=== PATIENT | male | born 1970 | race Caucasian/White ===

== ENCOUNTER 2017-04-18 19:03 | Emergency (ER) | payer OTHER ==
[~2017-04-18] VITALS: Ht 190.5 cm; Wt 120.5 kg
[2017-04-18] MEDS ORDERED: ALBU83IN INH (19:25)
[2017-04-18] MEDS ORDERED: ASPIRIN 325 MG TAB PO ONE (19:45)
[2017-04-18] MEDS ORDERED: KETOROLAC 30 MG/ML VIAL (J1885) IV ONE (19:45)
[2017-04-18 19:56] LABS: BASO % 0.7 % (0.0-1.0); EOS # 0.2 10^3/uL (0.0-0.50); EOS % 3.6 % (0.0-3.0); IMMATURE GRANULOCYTE % 0.2 % (0-0); LYMPH # 2.5 10^3/uL (1.5-4.5); LYMPH % 44.7 % (24.0-44.0); MEAN CORPUSCULAR HEMOGLOBIN 29.7 pg (27.0-33.0); MEAN CORPUSCULAR HGB CONC 33.6 g/dl (32.0-36.5); MEAN CORPUSCULAR VOLUME 88.4 fl (80.0-96.0); MONO # 0.5 10^3/uL (0.0-0.8); MONO % 9.1 % (0.0-5.0); NEUTROPHILS # 2.3 10^3/uL (1.8-7.7); NEUTROPHILS % 41.7 % (36.0-66.0); PLATELET COUNT, AUTOMATED 212 10^3/uL (150-450); RED CELL DISTRIBUTION WIDTH 12.4 % (11.5-14.5); WHITE BLOOD COUNT 5.5 10^3/uL (4.0-10.0)
[2017-04-18 20:13] LABS: INR 0.93
[2017-04-18 20:31] LABS: ANION GAP 8 MEQ/L (8-16); BLOOD UREA NITROGEN 10 MG/DL (7-18); CALCIUM LEVEL 8.4 MG/DL (8.5-10.1); CARBON DIOXIDE LEVEL 27 MEQ/L (21-32); CHLORIDE LEVEL 107 MEQ/L (98-107); CREATININE FOR GFR 0.86 MG/DL (0.70-1.30); GLOMERULAR FILTRATION RATE > 60.0 (>60); GLUCOSE, FASTING 81 MG/DL (70-105); POTASSIUM SERUM 3.3 MEQ/L (3.5-5.1); SODIUM LEVEL 142 MEQ/L (136-145)
[2017-04-18] MEDS ORDERED: ISOVUE-370 76% 100ML VIAL (Q9967) As Ordered ONE (21:56)
--- NOTE | 2017-04-18 22:30 | REPUSA ---
CT angiogram of the chest Clinical statement: Chest pain and shortness of breath. Technique: Multiple axial CT images were obtained from the thoracic inlet through the upper abdomen a fter a bolus administration of nonionic intravenous contrast. Coronal and sagittal reconstructions we re also obtained. Comparison: 08/13/2011. Findings: The pulmonary arteries are well-opacified with contrast, with no intraluminal filling defec ts to suggest embolism. The thoracic aorta is unremarkable. Thyroid gland is within normal limits. Th ere is no thoracic lymphadenopathy. There are no pericardial or pleural effusions. The lungs are abilio r. Limited imaging of the upper abdomen is unremarkable. There are no suspicious osseous lesions. Impression: Unremarkable CT examination of the chest. No evidence of pulmonary embolism.
[2017-04-18 23:13] VITALS: BP 139/87
[2017-04-19] MEDS ORDERED: KETO10TAB PO (01:41)
--- NOTE | 2017-04-19 10:50 | ECGEPIP ---
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
--- NOTE | 2017-04-19 10:53 | ECGEPIP ---
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
== END 2017-04-19 01:46 | disposition home or self-care (01) ==
LOC: M ED 19:03
DX: R07.1 Chest pain on breathing (principal); R00.1 Bradycardia, unspecified; M10.9 Gout, unspecified; Z87.891 Personal history of nicotine dependence; Z88.8 Allergy status to other drugs, medicaments and biological substances
CPT/HCPCS: 71275; 80048; 82550; 82553; 85025; 85610; 85730; 93005; 96374; 99284; J1885; Q9967

== ENCOUNTER → 2018-04-06 | Outpatient (CLI) | payer OTHER ==
[2018-04-06 17:15] LABS: ALBUMIN 4.1 GM/DL (3.2-5.2); ALBUMIN/GLOBULIN RATIO 1.58 (1.00-1.93); ALKALINE PHOSPHATASE 68 U/L (45-117); ALT/SGPT 25 U/L (12-78); ANION GAP 7 MEQ/L (8-16); AST/SGOT 17 U/L (7-37); BILIRUBIN,TOTAL 0.7 MG/DL (0.2-1.0); BLOOD UREA NITROGEN 13 MG/DL (7-18); CALCIUM LEVEL 8.4 MG/DL (8.5-10.1); CARBON DIOXIDE LEVEL 27 MEQ/L (21-32); CHLORIDE LEVEL 108 MEQ/L (98-107); CHOLESTEROL LEVEL 164 MG/DL (<200); CREATININE FOR GFR 0.78 MG/DL (0.70-1.30); GLOMERULAR FILTRATION RATE > 60.0 (>60); GLUCOSE, FASTING 80 MG/DL (70-100); HDL CHOLESTEROL 40 MG/DL (>40); LDL CHOLESTEROL 100 MG/DL (<100); NON-HDL-C 124 MG/DL; POTASSIUM SERUM 3.9 MEQ/L (3.5-5.1); SODIUM LEVEL 142 MEQ/L (136-145); TOTAL PROTEIN 6.7 GM/DL (6.4-8.2); TRIGLYCERIDES LEVEL 118 MG/DL (<150)
== END ==
LOC: M LRY 13:47
DX: E78.1 Pure hyperglyceridemia (principal)
CPT/HCPCS: 80053

== ENCOUNTER → 2018-07-03 | Outpatient (CLI) | payer OTHER ==
[~2018-07-03] MED LIST: ALBU83IN INH; KETO10TAB PO
--- NOTE | 2018-07-03 11:38 | REP ---
RIGHT UPPER QUADRANT ULTRASOUND: Real-time sonographic evaluation of right upper quadrant performed. Gallbladder demonstrates no evidence of gallstones. Patient was tender in that region. There does not appear to be significant gallbladder wall thickening. There appears to be a polyp in the region of the neck of the gallbladder measuring 9 mm maximally. There is no intrahepatic or extrahepatic biliary dilatation, common bile duct measuring 4 mm. Liver and pancreas demonstrate no gross mass, pancreas not well seen due to overlying bowel gas. Right kidney demonstrates no hydronephrosis with normal size 12.4 cm in length. There is no evidence of ascites. IMPRESSION: There appears to be a polyp in the neck of the gallbladder 9 mm in maximum diameter. No gallstones, gallbladder wall thickening, free fluid, or biliary dilatation. Alternatively, this could represent a small noncalcified nonmobile stone. Recommend followup gallbladder ultrasound in 6 months. Electronically Signed by Brandon De La Vega MD 07/03/2018 03:59 P
[2018-07-03 11:52] LABS: ALT/SGPT 30 U/L (12-78); AMYLASE 31 U/L (25-115); BILIRUBIN,TOTAL 0.6 MG/DL (0.2-1.0); BLOOD UREA NITROGEN 15 MG/DL (7-18); CALCIUM LEVEL 8.3 MG/DL (8.5-10.1); CARBON DIOXIDE LEVEL 25 MEQ/L (21-32); CHLORIDE LEVEL 109 MEQ/L (98-107); CREATININE FOR GFR 0.74 MG/DL (0.70-1.30); GLOMERULAR FILTRATION RATE > 60.0 (>60); GLUCOSE, FASTING 86 MG/DL (70-100); LIPASE 125 U/L (73-393); POTASSIUM SERUM 4.5 MEQ/L (3.5-5.1); SODIUM LEVEL 143 MEQ/L (136-145); TOTAL PROTEIN 6.8 GM/DL (6.4-8.2)
[2018-07-03 12:00] LABS: BASO # 0.1 10^3/uL (0.0-0.2); EOS # 0.2 10^3/uL (0.0-0.50); EOS % 4.3 % (0.0-3.0); HEMATOCRIT 42.1 % (42.0-52.0); HEMOGLOBIN 14.4 g/dl (13.5-17.5); LYMPH # 1.5 10^3/uL (1.5-4.5); LYMPH % 30.8 % (24.0-44.0); MEAN CORPUSCULAR HEMOGLOBIN 30.6 pg (27.0-33.0); MEAN CORPUSCULAR HGB CONC 34.2 g/dl (32.0-36.5); MEAN CORPUSCULAR VOLUME 89.6 fl (80.0-96.0); MONO # 0.4 10^3/uL (0.0-0.8); MONO % 8.9 % (0.0-5.0); NEUTROPHILS # 2.6 10^3/uL (1.8-7.7); NEUTROPHILS % 54.8 % (36.0-66.0); PLATELET COUNT, AUTOMATED 209 10^3/uL (150-450); WHITE BLOOD COUNT 4.8 10^3/uL (4.0-10.0)
== END ==
LOC: M LRY 08:20
PROVIDERS: ATTEND Nurse Practitioner Family
DX: R93.2 Abnormal findings on diagnostic imaging of liver and biliary tract (principal); R10.11 Right upper quadrant pain

== ENCOUNTER → 2018-08-10 | Outpatient (CLI) | payer OTHER ==
--- NOTE | 2018-08-10 18:41 | REP ---
Clinical: Cervical pain with recent trauma/fall. Technique: AP, lateral, flexion/extension, bilateral oblique, and open mouth views of the cervical spine. Findings: Moderate/early advanced multilevel degenerative changes include endplate sclerosis, disc space narrowing, and osteophytosis predominantly involving C5-6, C6-7, C7-T1. Alignment and lordosis maintained. No acute fracture / compression injury or subluxation. Oblique views demonstrate patent neural foramen. Open mouth view demonstrates normal C1-C2 articulation and odontoid process. Spinous processes are intact. Impression: Moderate/early advanced multilevel degenerative changes from C5-T1. No acute fracture / compression injury or subluxation. Electronically Signed by Ramon Noyola MD 08/10/2018 06:33 P
--- NOTE | 2018-08-10 18:42 | REP ---
Clinical: Left hip pain. Technique: Neutral and frog lateral views of the left hip. Findings: Early moderate degenerative changes include increased sclerosis and heterogeneity to the acetabular roof with marginal spurring and mild joint space narrowing. No acute fracture dislocation. No calcified loose bodies. Impression: Early moderate degenerative changes. No acute fracture or dislocation. Electronically Signed by Ramon Noyola MD 08/10/2018 06:34 P
--- NOTE | 2018-08-10 18:54 | REP ---
Clinical: Lumbar pain with recent fall. Technique: AP, lateral, bilateral oblique, flexion and coned-down views of the lumbosacral spine. Findings: Alignment is maintained. There is no evidence for acute fracture / compression injury or subluxation. Chronic L5 spondylolysis without spondylolisthesis is suggested along with moderate multilevel degenerative changes including endplate sclerosis, marginal osteophyte formation, and minimal disc space narrowing. Impression: 1. No acute fracture / compression injury or subluxation. 2. Moderate multilevel degenerative changes. 3. Chronic L5 spondylolysis without spondylolisthesis suggested. Electronically Signed by Ramon Noyola MD 08/10/2018 06:46 P
== END ==
LOC: M LRY 18:06
PROVIDERS: ATTEND Nurse Practitioner Family
DX: M25.78 Osteophyte, vertebrae (principal); M51.36 Other intervertebral disc degeneration, lumbar region; M50.33 Other cervical disc degeneration, cervicothoracic region; M25.552 Pain in left hip

== ENCOUNTER → 2018-08-17 | Outpatient (CLI) | payer OTHER ==
--- NOTE | 2018-08-17 16:37 | REP ---
Clinical: Acute bronchitis . Comparison: 08/13/2011 . Technique: PA and lateral. Findings: The mediastinum and cardiac silhouette are normal. The lung sahu are clear and without acute consolidation, effusion, or pneumothorax. The skeletal structures are intact and normal. Impression: 1. No acute cardiopulmonary process. Electronically Signed by Ramon Noyola MD 08/17/2018 04:28 P
== END ==
LOC: M LRY 16:10
PROVIDERS: ATTEND Nurse Practitioner Family
DX: Z87.09 Personal history of other diseases of the respiratory system (principal)

== ENCOUNTER 2018-09-16 12:04 | Day surgery (SDC) | payer OTHER ==
[~2018-09-16] VITALS: Ht 190.5 cm; Wt 126.1 kg
[~2018-09-16 12:04] MED LIST changes: +ENBR50IN2 SC; +NS 1,000 ML IV ONE; +OMEP-218 PO; +PROAAER10 INH
[2018-09-16] MEDS ORDERED: LIDOCAINE 2% INJ 100 MG/5 ML SDV (FOR ANES.) As Ordered ONE (12:34)
[2018-09-16] MEDS ORDERED: PROPOFOL 200 MG/20 ML VIAL As Ordered ONE (12:34)
--- NOTE | 2018-09-16 14:06 | ROOR ---
Patient Name: Sina Garcia Procedure Date: 09/16/2018 1:35 PM Date of : 1970 Age: 47 Room: [facility] Gender: Male Note Status: Finalized Procedure: Upper GI endoscopy Indications: Epigastric abdominal pain Providers: DO Alvaro Chan MD: Klaus Ocasio NP Requesting Provider: Medicines: Propofol per Anesthesia Complications: No immediate complications. Procedure: Pre-Anesthesia Assessment: - Prior to the procedure, a History and Physical was performed, and patient medications and allergies were reviewed. The patient is competent. The risks and benefits of the procedure and the sedation options and risks were discussed with the patient. All questions were answered and informed consent was obtained. Patient identification and proposed procedure were verified by the physician, the nurse, the anesthesiologist and the master fire control technician in the endoscopy suite. Mental Status Examination: alert and oriented. Airway Examination: normal oropharyngeal airway and neck mobility. Respiratory Examination: clear to auscultation. CV Examination: normal. Prophylactic Antibiotics: The patient does not require prophylactic antibiotics. Prior Anticoagulants: The patient has taken no previous anticoagulant or antiplatelet agents. ASA Grade Assessment: II - A patient with mild systemic disease. After reviewing the risks and benefits, the patient was deemed in satisfactory condition to undergo the procedure. The anesthesia plan was to use monitored anesthesia care (MAC). Immediately prior to administration of medications, the patient was re-assessed for adequacy to receive sedatives. The heart rate, respiratory rate, oxygen saturations, blood pressure, adequacy of pulmonary ventilation, and response to care were monitored throughout the procedure. The physical status of the patient was re-assessed after the procedure. The Endoscope was introduced through the mouth, and advanced to the second part of duodenum. The upper GI endoscopy was accomplished without difficulty. The patient tolerated the procedure well. Findings: Localized minimal inflammation characterized by erythema was found in the prepyloric region of the stomach. Biopsies were taken with a cold forceps for Helicobacter pylori testing. Estimated blood loss was minimal. The exam was otherwise without abnormality. Impression: - Gastritis. Biopsied. - The examination was otherwise normal. Recommendation: - Patient has a contact number available for emergencies. The signs and symptoms of potential delayed complications were discussed with the patient. Return to normal activities tomorrow. Written discharge instructions were provided to the patient. - Return to my office as previously scheduled. Brandon Melgar DO 09/16/2018 2:06:24 PM Electronically signed by Brandon Melgar DO Number of Addenda: 0 Note Initiated On: 09/16/2018 1:35 PM Estimated Blood Loss: Estimated blood loss was minimal.
--- NOTE | 2018-09-16 14:08 | ROOR ---
Patient Name: Sina Garcia Procedure Date: 09/16/2018 1:35 PM Date of : 1970 Age: 47 Room: [facility] Gender: Male Note Status: Finalized Procedure: Colonoscopy Indications: Screening for colorectal malignant neoplasm Providers: DO Alvaro Chan MD: Klaus Ocasio NP Requesting Provider: Medicines: Propofol per Anesthesia Complications: No immediate complications. Procedure: Pre-Anesthesia Assessment: - Prior to the procedure, a History and Physical was performed, and patient medications and allergies were reviewed. The patient is competent. The risks and benefits of the procedure and the sedation options and risks were discussed with the patient. All questions were answered and informed consent was obtained. Patient identification and proposed procedure were verified by the physician, the nurse, the anesthesiologist and the airplane technician in the endoscopy suite. Mental Status Examination: alert and oriented. Airway Examination: normal oropharyngeal airway and neck mobility. Respiratory Examination: clear to auscultation. CV Examination: normal. Prophylactic Antibiotics: The patient does not require prophylactic antibiotics. Prior Anticoagulants: The patient has taken no previous anticoagulant or antiplatelet agents. ASA Grade Assessment: II - A patient with mild systemic disease. After reviewing the risks and benefits, the patient was deemed in satisfactory condition to undergo the procedure. The anesthesia plan was to use monitored anesthesia care (MAC). Immediately prior to administration of medications, the patient was re-assessed for adequacy to receive sedatives. The heart rate, respiratory rate, oxygen saturations, blood pressure, adequacy of pulmonary ventilation, and response to care were monitored throughout the procedure. The physical status of the patient was re-assessed after the procedure. The Colonoscope was introduced through the anus and advanced to the cecum, identified by appendiceal orifice and ileocecal valve. The colonoscopy was performed without difficulty. The patient tolerated the procedure well. Findings: A few small-mouthed diverticula were found in the sigmoid colon. Internal hemorrhoids were found. The hemorrhoids were Grade I (internal hemorrhoids that do not prolapse). The exam was otherwise without abnormality on direct and retroflexion views. Impression: - Diverticulosis in the sigmoid colon. - Internal hemorrhoids. - The examination was otherwise normal on direct and retroflexion views. - No specimens collected. Recommendation: - Patient has a contact number available for emergencies. The signs and symptoms of potential delayed complications were discussed with the patient. Return to normal activities tomorrow. Written discharge instructions were provided to the patient. - Repeat colonoscopy in 5-10 years for screening purposes. - Return to my office PRN. Brandon Melgar DO 09/16/2018 2:08:44 PM Electronically signed by Brandon Melgar DO Number of Addenda: 0 Note Initiated On: 09/16/2018 1:35 PM Estimated Blood Loss: Estimated blood loss: none.
[2018-09-16 14:29] VITALS: BP 127/67
== END 2018-09-16 14:30 | disposition home or self-care (01) ==
LOC: M OPP 12:04
PROVIDERS: ATTEND Surgery
DX: K57.30 Diverticulosis of large intestine without perforation or abscess without bleeding (principal); K64.0 First degree hemorrhoids; K29.70 Gastritis, unspecified, without bleeding; R10.13 Epigastric pain; Z12.11 Encounter for screening for malignant neoplasm of colon

== ENCOUNTER 2018-09-19 11:29 | Emergency (ER) | payer OTHER ==
[~2018-09-19] VITALS: Ht 190.5 cm; Wt 126.2 kg
[~2018-09-19 11:29] MED LIST changes: -NS 1,000 ML IV ONE
[2018-09-19] MEDS ORDERED: NS 1,000 ML IV ONE (12:15)
[2018-09-19 12:52] LABS: BASO % 0.2 % (0.0-1.0); EOS # 0.1 10^3/uL (0.0-0.50); EOS % 1.7 % (0.0-3.0); HEMATOCRIT 41.9 % (42.0-52.0); LYMPH # 0.9 10^3/uL (1.5-4.5); LYMPH % 16.9 % (24.0-44.0); MEAN CORPUSCULAR HEMOGLOBIN 29.9 pg (27.0-33.0); MEAN CORPUSCULAR HGB CONC 33.4 g/dl (32.0-36.5); MEAN CORPUSCULAR VOLUME 89.5 fl (80.0-96.0); MONO # 0.8 10^3/uL (0.0-0.8); MONO % 14.1 % (0.0-5.0); NEUTROPHILS # 3.6 10^3/uL (1.8-7.7); NEUTROPHILS % 66.9 % (36.0-66.0); PLATELET COUNT, AUTOMATED 214 10^3/uL (150-450); RED BLOOD COUNT 4.68 10^6/uL (4.30-6.10); WHITE BLOOD COUNT 5.4 10^3/uL (4.0-10.0)
[2018-09-19 13:18] LABS: ALBUMIN 3.4 GM/DL (3.2-5.2); ALT/SGPT 27 U/L (12-78); BILIRUBIN,DIRECT 0.2 MG/DL (0.0-0.2); BILIRUBIN,TOTAL 0.7 MG/DL (0.2-1.0); BLOOD UREA NITROGEN 11 MG/DL (7-18); CALCIUM LEVEL 7.8 MG/DL (8.5-10.1); CARBON DIOXIDE LEVEL 24 MEQ/L (21-32); CHLORIDE LEVEL 111 MEQ/L (98-107); GLOMERULAR FILTRATION RATE > 60.0 (>60); GLUCOSE, FASTING 80 MG/DL (70-100); LIPASE 74 U/L (73-393); POTASSIUM SERUM 4.1 MEQ/L (3.5-5.1); SODIUM LEVEL 141 MEQ/L (136-145); TOTAL PROTEIN 6.2 GM/DL (6.4-8.2)
[2018-09-19] MEDS ORDERED: ISOVUE-370 76% 100ML VIAL (Q9967) As Ordered ONE (13:26)
[2018-09-19 14:32] VITALS: BP 123/66
--- NOTE | 2018-09-19 14:59 | REP ---
CT ABDOMEN AND PELVIS WITH IV CONTRAST: TECHNIQUE: Axial contrast enhanced images from the lung bases to the pubic symphysis using 100 mL Isovue 370 intravenous contrast material with multiplanar reformations. Visualized lung bases are clear. The liver, gallbladder, spleen, adrenals, pancreas, and kidneys are unremarkable. There is no evidence of abdominal aortic aneurysm. There are multiple mesenteric lymph nodes diffusely, but predominantly located in the left upper quadrant mesentery. A few are mildly enlarged, maximum diameter 1.3 cm in short axis. There is associated mild streaky inflammatory change in the mesenteric fat. Findings suggest mesenteritis. I seen no bowel wall thickening. There is no evidence of appendicitis. There is no free air or free fluid. No pelvic mass is seen. IMPRESSION: Multiple mesenteric lymph nodes seen predominantly in the left upper quadrant. A few are mildly enlarged up to 1.3 cm in short axis. Mild streaky inflammatory change in the mesenteric fat as well. Findings suggest mesenteritis. Electronically Signed by Brandon De La Vega MD 09/19/2018 03:58 P
== END 2018-09-19 14:41 | disposition home or self-care (01) ==
LOC: M ED 11:29
DX: I88.0 Nonspecific mesenteric lymphadenitis (principal); R10.84 Generalized abdominal pain; R19.7 Diarrhea, unspecified; K21.9 Gastro-esophageal reflux disease without esophagitis; E78.5 Hyperlipidemia, unspecified; L40.52 Psoriatic arthritis mutilans; Z87.891 Personal history of nicotine dependence; Z79.899 Other long term (current) drug therapy; Z88.5 Allergy status to narcotic agent; Z88.8 Allergy status to other drugs, medicaments and biological substances
CPT/HCPCS: 74177; 80048; 80076; 81001; 83690; 85025; 99284; Q9967

== ENCOUNTER → 2018-09-20 | Outpatient (REF) | payer OTHER | LOC: M LAB REF 12:42 | PROVIDERS: ATTEND Physician Assistant | DX: R19.4 Change in bowel habit (principal) ==

== ENCOUNTER → 2018-09-29 | Outpatient (CLI) | payer OTHER ==
[~2018-09-29] MED LIST changes: +ACET500T15 PO; +DIPH2.5T15 PO; +ENBR25IN3 SC; +IBUP200T45 PO
[2018-09-29 16:40] LABS: BLOOD UREA NITROGEN 10 MG/DL (7-18); CALCIUM LEVEL 8.4 MG/DL (8.5-10.1); CARBON DIOXIDE LEVEL 22 MEQ/L (21-32); CHLORIDE LEVEL 114 MEQ/L (98-107); CREATININE FOR GFR 1.03 MG/DL (0.70-1.30); GLOMERULAR FILTRATION RATE > 60.0 (>60); GLUCOSE, FASTING 86 MG/DL (70-100); POTASSIUM SERUM 4.5 MEQ/L (3.5-5.1); SODIUM LEVEL 141 MEQ/L (136-145)
== END ==
LOC: M LRY 12:25
PROVIDERS: ATTEND Nurse Practitioner Family
DX: R19.7 Diarrhea, unspecified (principal)

== ENCOUNTER 2018-10-04 11:06 | Inpatient (IN) | payer OTHER ==
[~2018-10-04] VITALS: Ht 190.5 cm; Wt 112.5 kg
[~2018-10-04 11:06] MED LIST changes: -ACET500T15 PO; -DIPH2.5T15 PO; -ENBR25IN3 SC; -IBUP200T45 PO
[2018-10-04] MEDS ORDERED: DIPH2.5T15 PO (11:15)
[2018-10-04] MEDS ORDERED: NS 2,000 ML IV ONE (11:45)
[2018-10-04 12:22] LABS: BASO % 0.4 % (0.0-1.0); EOS # 0.1 10^3/uL (0.0-0.50); EOS % 0.6 % (0.0-3.0); HEMATOCRIT 47.7 % (42.0-52.0); HEMOGLOBIN 16.3 g/dl (13.5-17.5); LYMPH % 11.4 % (24.0-44.0); MEAN CORPUSCULAR HEMOGLOBIN 29.4 pg (27.0-33.0); MEAN CORPUSCULAR HGB CONC 34.2 g/dl (32.0-36.5); MEAN CORPUSCULAR VOLUME 85.9 fl (80.0-96.0); MONO # 0.9 10^3/uL (0.0-0.8); NEUTROPHILS # 6.6 10^3/uL (1.8-7.7); NEUTROPHILS % 77.4 % (36.0-66.0); PLATELET COUNT, AUTOMATED 297 10^3/uL (150-450); RED BLOOD COUNT 5.55 10^6/uL (4.30-6.10); WHITE BLOOD COUNT 8.5 10^3/uL (4.0-10.0)
[2018-10-04 12:43] LABS: ALBUMIN 3.6 GM/DL (3.2-5.2); ALT/SGPT 22 U/L (12-78); BILIRUBIN,DIRECT 0.3 MG/DL (0.0-0.2); BILIRUBIN,TOTAL 0.8 MG/DL (0.2-1.0); BLOOD UREA NITROGEN 8 MG/DL (7-18); C REACTIVE PROTEIN QUANTITATIV 0.39 MG/DL (0.00-0.30); CALCIUM LEVEL 8.2 MG/DL (8.5-10.1); CARBON DIOXIDE LEVEL 13 MEQ/L (21-32); CHLORIDE LEVEL 115 MEQ/L (98-107); CREATININE FOR GFR 0.87 MG/DL (0.70-1.30); GLOMERULAR FILTRATION RATE > 60.0 (>60); GLUCOSE, FASTING 97 MG/DL (70-100); LIPASE 176 U/L (73-393); POTASSIUM SERUM 3.8 MEQ/L (3.5-5.1); SODIUM LEVEL 137 MEQ/L (136-145); TOTAL PROTEIN 6.5 GM/DL (6.4-8.2)
[2018-10-04] MEDS: GASTROGRAFIN SOLUTION 30ML (Q9963) PO SCH (12:45)
[2018-10-04] MEDS ORDERED: ISOVUE-370 76% 100ML VIAL (Q9967) As Ordered ONE (13:56)
--- NOTE | 2018-10-04 14:59 | REP ---
HISTORY: Persistent abdominal pain. COMPARISON: 09/19/2018 CONTRAST: 100 mL of Isovue-370 There is no change in the lung bases. The liver, gallbladder, spleen, pancreas, adrenal glands, and kidneys are unchanged and again seen to be within normal limits. The abdominal aorta and paraaortic regions are unchanged and again seen to be within normal limits. Once again, there are multiple enlarged mesenteric lymph nodes, status quo. Once again, there is evidence of spiking of the mesenteric mucosa of multiple small bowel loops with streaky radial fatty infiltration of the adipose tissue in the small bowel mesentery involving those small bowel loops, particularly on the right. This is all stable. The appendix is well visualized and is again seen to be unremarkable. There is no free fluid or free air in the abdomen. CT PELVIS: The pelvic bowel loops are essentially unchanged. There is no free fluid or free air. There is no pelvic mass or adenopathy. Bone window technique throughout the exam again shows degenerative changes involving the sacroiliac joints and spine, status quo. IMPRESSION: 1. Inflammatory change in the mesentery and involving small bowel loops on the right as described above and possibly secondary to Crohn disease. This needs to be correlated clinically with appropriate followup. This is seen in conjunction with mesenteric lymphadenopathy, which is also unchanged and which could also be the sequela of Crohn disease or other inflammatory enteridities. 2. Other findings as described above. Electronically Signed by Franky Amaya DO 10/04/2018 04:39 P
[2018-10-04] MEDS ORDERED: CIPROFLOXACIN 400 MG in APPROPRIATE DILUENT 1 EA IV ONE (15:15)
[2018-10-04] MEDS ORDERED: metroNIDAZOLE 500 MG in APPROPRIATE DILUENT 1 EA IV ONE (15:15)
[2018-10-04] MEDS ORDERED: ACET500T15 PO (15:36)
[2018-10-04] MEDS ORDERED: ENBR25IN3 SC (15:36)
[2018-10-04] MEDS ORDERED: IBUP200T45 PO (15:36)
--- NOTE | 2018-10-04 16:34 | HPEPDOC ---
[facility] Medical History & Physical Date of Admission October 04, 2018 Attending Physician: JUDY DICKERSON MD History and Physical CHIEF COMPLAINT: Diarrhea HISTORY OF PRESENT ILLNESS: Patient is a 47-year-old male with past medical history of psoriasis and asthma presented to ER for complaints of persistent diarrhea for the past 3 weeks. Patient reportedly went to GI Dr. Melgar for elective colonoscopy and EGD 09/16/18 for reported abdominal discomfort and routine as patient has a family history of colon cancer. Since of procedure patient was noted to have profuse diarrhea every day up to 15 bowel movements each day. He has had follow-up since the procedure and thought that symptoms are attributed to viral enteritis and was recommended supportive care. He has had an ER visit on the follow by PMD visit for the same problem. Eventually prescribed Lomotil to help with diarrhea which he said has not helped. Patient reported a 33lb weight loss in the past 19 days since all this had started. He denies any recent travels or any unusual activities. 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 He denies any other symptoms including nausea, vomiting, fever, chills. PAST MEDICAL HISTORY: Refer to [facility] PAST SURGICAL HISTORY: EGD/Colonoscopy 09/2018 SOCIAL HISTORY: Denies tobacco, alcohol or illicit drug use. FAMILY HISTORY: Mother with CAD Father NHL and PE Grandfather had colon cancer ALLERGIES: Please see below. REVIEW OF SYSTEMS: 10 point review of system negative except as stated in [facility] HOME MEDICATIONS: Please see below. PHYSICAL EXAMINATION: General: No acute distress, Alert Eyes: Normal sclera, EOMI, YOVANA HENT: Atraumatic, neck supple, moist mucous membranes Cardiovascular: Normal rate, normal rhythm. No murmurs appreciated. Pulmonary: Clear to auscultation b/l, no wheezing GI: Soft, nondistended, mild generalized tenderness. Skin: Warm and dry Neuro: CN grossly intact. No focal deficits. Strengths equal b/l. Psych: oriented x 3 LABORATORY DATA: See below. IMAGING: CT Abdomen- IMPRESSION: 1. Inflammatory change in the mesentery and involving small bowel loops on the right as described above and possibly secondary to Crohn disease. This needs to be correlated clinically with appropriate followup. This is seen in conjunction with mesenteric lymphadenopathy, which is also unchanged and which could also be the sequela of Crohn disease or other inflammatory enteritities?? 2. Other findings as described above. MICROBIOLOGY: Please see below. ASSESSMENT AND PLAN: 1. Persistent diarrhea - Symptoms reportedly all started after getting EGD and Colonoscopy, which were noted to have diverticulosis but no other significant findings. Done with Dr. Melgar 09/16/18. - Has had persistent diarrhea for 3 weeks with 33 lbs weight loss. - CT abdomen with evidence of inflammation in mesentary and SB loops, suspicious for Crohn's disease. - GI Viral panel negative. More likely enteritis than Crohn's disease given patient's age and lack of symptoms prior to Colonoscopy. - Has not improved with support care for 3 weeks. Will continue Cipro and Flagyl that was started in ER. - IVF support. - Consider GI consult in does not improve with Abx. 2. Psoriasis - Stable. - c/w f/u and medications post discharge. 3. Asthma - Nebs PRN for SOB. - O2 support. DVT ppx: Lovenox Code status: Full code Dispo: Home Vital Signs Vital Signs Date Time Temp Pulse Resp B/P (MAP) Pulse Ox O2 Delivery O2 Flow Rate FiO2 10/04/18 15:53 98.0 62 16 138/82 (100) 99 Room Air Laboratory Data Labs 24H Laboratory Tests 2 10/04/18 11:45: Immature Granulocyte % (Auto) 0.2, White Blood Count 8.5, Red Blood Count 5.55, Hemoglobin 16.3, Hematocrit 47.7, Mean Corpuscular Volume 85.9, Mean Corpuscular Hemoglobin 29.4, Mean Corpuscular Hemoglobin Concent 34.2, Red Cell Distribution Width 13.2, Platelet Count 297, Neutrophils (%) (Auto) 77.4H, Lymphocytes (%) (Auto) 11.4L, Monocytes (%) (Auto) 10.0H, Eosinophils (%) (Auto) 0.6, Basophils (%) (Auto) 0.4, Neutrophils # (Auto) 6.6, Lymphocytes # (Auto) 1.0L, Monocytes # (Auto) 0.9H, Eosinophils # (Auto) 0.1, Basophils # (Auto) 0.0, Nucleated Red Blood Cells % (auto) 0.0, Anion Gap 9, Glomerular Filtration Rate > 60.0, Lactic Acid Level 0.9, Calcium Level 8.2L, Aspartate Amino Transf (AST/SGOT) 16, Alanine Aminotransferase (ALT/SGPT) 22, Alkaline Phosphatase 104, Total Bilirubin 0.8, Direct Bilirubin 0.3H, C-Reactive Protein, Quantitative 0.39H, Total Protein 6.5, Albumin 3.6, Albumin/Globulin Ratio 1.24, Lipase 176 10/04/18 13:22: Urine Color KINA, Urine Appearance CLOUDYH, Urine pH 5.0, Urine Specific [place] 1.020, Urine Protein 1+H, Urine Glucose (UA) NEGATIVE, Urine Ketones TRACEH, Urine Blood NEGATIVE, Urine Nitrite NEGATIVE, Urine Bilirubin NEGATIVE, Urine Urobilinogen 0.2, Urine Leukocyte Esterase NEGATIVE, Urine WBC (Auto) 0, Urine RBC (Auto) 0, Urine Hyaline Casts (Auto) 12, Urine Bacteria (Auto) NEGATIVE, Urine Squamous Epithelial Cells 1, Urine Calcium Oxalate Cryst (Auto) SMALL, Urine Mucus (Auto) LARGE, Urine Sperm (Auto) CBC/BMP Laboratory Tests 10/04/18 11:45 Red Blood Count 5.55, Mean Corpuscular Volume 85.9, Mean Corpuscular Hemoglobin 29.4, Mean Corpuscular Hemoglobin Concent 34.2, Red Cell Distribution Width 13.2, Neutrophils (%) (Auto) 77.4 H, Lymphocytes (%) (Auto) 11.4 L, Monocytes (%) (Auto) 10.0 H, Eosinophils (%) (Auto) 0.6, Basophils (%) (Auto) 0.4, Neutrophils # (Auto) 6.6, Lymphocytes # (Auto) 1.0 L, Monocytes # (Auto) 0.9 H, Eosinophils # (Auto) 0.1, Basophils # (Auto) 0.0 Microbiology Microbiology 10/04/18 Gastrointestinal Tract Panel (PCR) - Final, Complete Home Medications Scheduled Etanercept (Enbrel) 25 Mg/0.5 Ml Syringe, 50 MG SC QWEEK SUNDAYS Scheduled PRN Acetaminophen (Acetaminophen) 500 Mg Tablet, 500 MG PO Q4H PRN for PAIN Albuterol Sulfate (Proair Hfa) 8.5 Gm Hfa.aer.ad, 2 PUFF INH Q4H PRN for SHORTNESS OF BREATH Diphenoxylate HCl/Atropine (Diphenoxylate-Atrop 2.5-0.025) 1 Each Tablet, 1 TAB PO Q6H PRN for DIARRHEA Ibuprofen (Ibu-200) 200 Mg Tablet, 400 MG PO Q6H PRN for PAIN Allergies Coded Allergies: epinephrine (Verified Adverse Reaction, Intermediate, HIGH DOSE EPI - SEVERE SVT, 09/08/18) codeine (Verified Adverse Reaction, Mild, hallucinations, 09/08/18) A-FIB/CHADSVASC A-FIB History Current/History of A-Fib/PAF?: No JUDY DICKERSON MD October 04, 2018 16:34
[2018-10-04 17:30] VITALS: BP 137/85
[2018-10-04] MEDS: ENOXAPARIN 40 MG/0.4 ML SYRINGE (J1650) SC SCH (17:45)
[2018-10-04 18:00] VITALS: BP 156/82
[2018-10-04] MEDS: DICYCLOMINE 10 MG CAP PO SCH ×2 (18:00→23:42)
[2018-10-04] MEDS: CHOLESTYRAMINE 4 GM PWD PKT PO SCH (18:18)
[2018-10-04] MEDS: ACETAMINOPHEN TAB 650MG DOSE (2X325MG) PO PRN (21:05)
[2018-10-04 22:00] VITALS: BP 157/87
[2018-10-04] MEDS: metroNIDAZOLE 500 MG in APPROPRIATE DILUENT 1 EA IV SCH (23:42)
[2018-10-05 02:00] VITALS: BP 138/60
[2018-10-05] MEDS: CIPROFLOXACIN 400 MG in APPROPRIATE DILUENT 1 EA IV SCH ×2 (05:36→18:28)
[2018-10-05] MEDS: DICYCLOMINE 10 MG CAP PO SCH ×4 (05:36→23:56)
[2018-10-05 05:47] LABS: HEMATOCRIT 43.9 % (42.0-52.0); MEAN CORPUSCULAR HEMOGLOBIN 30.1 pg (27.0-33.0); MEAN CORPUSCULAR HGB CONC 34.2 g/dl (32.0-36.5); MEAN CORPUSCULAR VOLUME 88.2 fl (80.0-96.0); PLATELET COUNT, AUTOMATED 240 10^3/uL (150-450); RED BLOOD COUNT 4.98 10^6/uL (4.30-6.10); WHITE BLOOD COUNT 6.2 10^3/uL (4.0-10.0)
[2018-10-05 06:00] VITALS: BP 127/72
[2018-10-05 06:15] LABS: BLOOD UREA NITROGEN 5 MG/DL (7-18); CARBON DIOXIDE LEVEL 14 MEQ/L (21-32); CHLORIDE LEVEL 116 MEQ/L (98-107); CREATININE FOR GFR 0.87 MG/DL (0.70-1.30); GLOMERULAR FILTRATION RATE > 60.0 (>60); GLUCOSE, FASTING 96 MG/DL (70-100); POTASSIUM SERUM 3.4 MEQ/L (3.5-5.1); SODIUM LEVEL 139 MEQ/L (136-145)
[2018-10-05] MEDS ORDERED: POTASSIUM CHLORIDE 10 MEQ SR TABLET PO ONE (08:00)
[2018-10-05] MEDS: ENOXAPARIN 40 MG/0.4 ML SYRINGE (J1650) SC SCH (08:03)
[2018-10-05] MEDS: metroNIDAZOLE 500 MG in APPROPRIATE DILUENT 1 EA IV SCH ×3 (08:03→23:55)
[2018-10-05] MEDS: CHOLESTYRAMINE 4 GM PWD PKT PO SCH (08:03)
[2018-10-05 10:00] VITALS: BP 125/77
[2018-10-05] MEDS: ACETAMINOPHEN TAB 650MG DOSE (2X325MG) PO PRN ×2 (10:35→18:39)
--- NOTE | 2018-10-05 13:51 | IPNPDOC ---
Date Seen The patient was seen on 10/05/18. Progress Note SUBJECTIVE: Patient reports feeling fine this morning Still has some abdominal discomfort along with diarrhea. Reported 7 episodes of loose stools since last night, he cannot tell if he had improved or not since admission yesterday evening yet. OBJECTIVE PHYSICAL EXAMINATION: VITAL SIGNS: Please see below. General: No acute distress, Alert Eyes: Normal sclera, EOMI, YOVANA HENT: Atraumatic, neck supple, moist mucous membranes Cardiovascular: Normal rate, normal rhythm. No murmurs appreciated. Pulmonary: Clear to auscultation b/l, no wheezing GI: Soft, nondistended, mild generalized tenderness. Skin: Warm and dry Neuro: CN grossly intact. No focal deficits. Strengths equal b/l. Psych: oriented x 3 LABORATORY DATA, IMAGING STUDIES, MICROBIOLOGY: Please see below. ASSESSMENT AND PLAN: 1. Persistent diarrhea - Symptoms reportedly all started after getting EGD and Colonoscopy, which were noted to have diverticulosis but no other significant findings. Done with Dr. Melgar 09/16/18. - Has had persistent diarrhea for 3 weeks with 33 lbs weight loss. - CT abdomen with evidence of inflammation in mesentary and SB loops, suspicious for Crohn's disease. - GI Viral panel negative. More likely enteritis than Crohn's disease given patient's age and lack of symptoms prior to Colonoscopy. - Has not improved with support care for 3 weeks. - c/w Cipro and Flagyl, Bentyl and Questran. - IVF support. - Consider GI consult if does not improve with Abx. 2. Psoriasis - Stable. - c/w f/u and medications post discharge. 3. Asthma - Nebs PRN for SOB. - O2 support. DVT ppx: Lovenox Code status: Full code Dispo: Home A-FIB/CHADSVASC A-FIB History Current/History of A-Fib/PAF?: No VS, I&O, 24H, Fishbone Vital Signs/I&O Vital Signs Date Time Temp Pulse Resp B/P (MAP) Pulse Ox O2 Delivery O2 Flow Rate FiO2 10/05/18 10:00 97.7 58 18 125/77 (93) 100 10/04/18 15:53 Room Air I&O- Last 24 Hours up to 6 AM 10/05/18 06:00 Intake Total 2850 ml Output Total 125 ml Balance 2725 ml Laboratory Data 24H LABS Laboratory Tests 2 10/05/18 05:33: Nucleated Red Blood Cells % (auto) 0.0, Anion Gap 9, Glomerular Filtration Rate > 60.0, Blood Urea Nitrogen 5L, Creatinine 0.87, Sodium Level 139, Potassium Level 3.4L, Chloride Level 116H, Carbon Dioxide Level 14L, Calcium Level 8.0L CBC/BMP Laboratory Tests 10/05/18 05:33 Red Blood Count 4.98, Mean Corpuscular Volume 88.2, Mean Corpuscular Hemoglobin 30.1, Mean Corpuscular Hemoglobin Concent 34.2, Red Cell Distribution Width 13.2, Calcium Level 8.0 L Microbiology Microbiology 10/04/18 Gastrointestinal Tract Panel (PCR) - Final, Complete JUDY DICKERSON MD October 05, 2018 13:51
[2018-10-05 14:00] VITALS: BP 114/84
[2018-10-05 18:00] VITALS: BP 135/80
[2018-10-05] MEDS ORDERED: CALCIUM CARBONATE 500 MG CHEW U/D PO ONE (20:45)
[2018-10-05 22:00] VITALS: BP 135/82
[2018-10-06 02:00] VITALS: BP 115/71
[2018-10-06] MEDS: CIPROFLOXACIN 400 MG in APPROPRIATE DILUENT 1 EA IV SCH (05:33)
[2018-10-06] MEDS: DICYCLOMINE 10 MG CAP PO SCH ×3 (05:34→17:21)
[2018-10-06 05:51] LABS: HEMATOCRIT 43.8 % (42.0-52.0); MEAN CORPUSCULAR HGB CONC 34.2 g/dl (32.0-36.5); MEAN CORPUSCULAR VOLUME 87.6 fl (80.0-96.0); PLATELET COUNT, AUTOMATED 234 10^3/uL (150-450); WHITE BLOOD COUNT 5.7 10^3/uL (4.0-10.0)
[2018-10-06 06:00] VITALS: BP 119/71
[2018-10-06 06:20] LABS: BLOOD UREA NITROGEN 4 MG/DL (7-18); CALCIUM LEVEL 8.3 MG/DL (8.5-10.1); CARBON DIOXIDE LEVEL 14 MEQ/L (21-32); CHLORIDE LEVEL 113 MEQ/L (98-107); CREATININE FOR GFR 0.84 MG/DL (0.70-1.30); GLOMERULAR FILTRATION RATE > 60.0 (>60); GLUCOSE, FASTING 97 MG/DL (70-100); POTASSIUM SERUM 3.2 MEQ/L (3.5-5.1); SODIUM LEVEL 140 MEQ/L (136-145)
[2018-10-06] MEDS ORDERED: POTASSIUM CHLORIDE 10 MEQ SR TABLET PO ONE (08:30)
[2018-10-06] MEDS: ENOXAPARIN 40 MG/0.4 ML SYRINGE (J1650) SC SCH (08:57)
[2018-10-06] MEDS: metroNIDAZOLE 500 MG in APPROPRIATE DILUENT 1 EA IV SCH ×2 (08:57→17:21)
[2018-10-06] MEDS: CHOLESTYRAMINE 4 GM PWD PKT PO SCH ×2 (08:58→21:56)
[2018-10-06] MEDS ORDERED: OMEPRAZOLE 20 MG CAP PO SCH (09:00)
[2018-10-06 10:00] VITALS: BP 148/90
[2018-10-06] MEDS ORDERED: VoLumen 0.1% SUSPENSION 450ML BOTTLE As Ordered ONE (11:32)
[2018-10-06] MEDS ORDERED: ISOVUE-370 76% 100ML VIAL (Q9967) As Ordered ONE (11:33)
[2018-10-06] MEDS ORDERED: GLUCAGON FOR INJ 1 MG VIAL (J1610) As Ordered ONE (11:33)
--- NOTE | 2018-10-06 13:45 | IPNPDOC ---
Date Seen The patient was seen on 10/06/18. Progress Note SUBJECTIVE: Patient reports feeling the same this morning. States that he may have slightly decrease in frequency of diarrhea but difficult to tell yet. Mild abdominal discomfort persistent. OBJECTIVE PHYSICAL EXAMINATION: VITAL SIGNS: Please see below. General: No acute distress, Alert Eyes: Normal sclera, EOMI, YOVANA HENT: Atraumatic, neck supple, moist mucous membranes Cardiovascular: Normal rate, normal rhythm. No murmurs appreciated. Pulmonary: Clear to auscultation b/l, no wheezing GI: Soft, nondistended, mild generalized tenderness. Skin: Warm and dry Neuro: CN grossly intact. No focal deficits. Strengths equal b/l. Psych: oriented x 3 LABORATORY DATA, IMAGING STUDIES, MICROBIOLOGY: Please see below. ASSESSMENT AND PLAN: 1. Persistent diarrhea - Symptoms reportedly all started after getting EGD and Colonoscopy, which were noted to have diverticulosis but no other significant findings. Done 09/16/18. - Has had persistent diarrhea for 3 weeks with 33 lbs weight loss. - CT abdomen with evidence of inflammation in mesentary and SB loops, suspicious for Crohn's disease. - GI Viral panel negative. More likely enteritis than Crohn's disease given patient's age and lack of symptoms prior to Colonoscopy. - Has not improved with support care for 3 weeks. - c/w Cipro and Flagyl, Bentyl and Questran. - IVF support. - HIDA scan to assess GB (polyps noted on US in the past) as well as CT Enterography. 2. Psoriasis - Stable. - c/w f/u and medications post discharge. 3. Asthma - Nebs PRN for SOB. - O2 support. DVT ppx: Lovenox Code status: Full code Dispo: Home A-FIB/[facility] A-FIB History Current/History of A-Fib/PAF?: No VS, I&O, 24H, Fishbone Vital Signs/I&O Vital Signs Date Time Temp Pulse Resp B/P (MAP) Pulse Ox O2 Delivery O2 Flow Rate FiO2 10/06/18 10:00 97.7 57 18 148/90 (109) 97 10/04/18 15:53 Room Air I&O- Last 24 Hours up to 6 AM 10/06/18 06:00 Intake Total 2150 ml Output Total 2075 ml Balance 75 ml Laboratory Data 24H LABS Laboratory Tests 2 10/06/18 05:40: Nucleated Red Blood Cells % (auto) 0.0, Anion Gap 13, Glomerular Filtration Rate > 60.0, Blood Urea Nitrogen 4L, Creatinine 0.84, Sodium Level 140, Potassium Level 3.2L, Chloride Level 113H, Carbon Dioxide Level 14L, Calcium Level 8.3L CBC/BMP Laboratory Tests 10/06/18 05:40 Red Blood Count 5.00, Mean Corpuscular Volume 87.6, Mean Corpuscular Hemoglobin 30.0, Mean Corpuscular Hemoglobin Concent 34.2, Red Cell Distribution Width 13.2, Calcium Level 8.3 L Microbiology Microbiology 10/04/18 Gastrointestinal Tract Panel (PCR) - Final, Complete JUDY DICKERSON MD October 06, 2018 13:45
[2018-10-06 14:00] VITALS: BP 127/79
[2018-10-06 18:00] VITALS: BP 122/76
[2018-10-06] MEDS: ACETAMINOPHEN TAB 650MG DOSE (2X325MG) PO PRN (18:57)
[2018-10-06] MEDS: LOMOTIL 2.5MG/0.025MG TABLET PO SCH (21:56)
[2018-10-06 22:00] VITALS: BP 134/84
[2018-10-07] MEDS: NS 1,000 ML IV SCH ×3 (00:07→16:18)
[2018-10-07] MEDS: DICYCLOMINE 10 MG CAP PO SCH ×4 (00:07→18:26)
[2018-10-07] MEDS: metroNIDAZOLE 500 MG in APPROPRIATE DILUENT 1 EA IV SCH ×3 (00:08→16:19)
[2018-10-07 02:00] VITALS: BP 128/77
[2018-10-07 06:00] VITALS: BP 118/74
[2018-10-07 06:12] LABS: HEMATOCRIT 47.9 % (42.0-52.0); HEMOGLOBIN 16.4 g/dl (13.5-17.5); MEAN CORPUSCULAR HEMOGLOBIN 29.9 pg (27.0-33.0); MEAN CORPUSCULAR HGB CONC 34.2 g/dl (32.0-36.5); MEAN CORPUSCULAR VOLUME 87.4 fl (80.0-96.0); PLATELET COUNT, AUTOMATED 277 10^3/uL (150-450); RED BLOOD COUNT 5.48 10^6/uL (4.30-6.10); WHITE BLOOD COUNT 6.8 10^3/uL (4.0-10.0)
[2018-10-07 06:37] LABS: BLOOD UREA NITROGEN 6 MG/DL (7-18); CALCIUM LEVEL 8.3 MG/DL (8.5-10.1); CARBON DIOXIDE LEVEL 11 MEQ/L (21-32); CHLORIDE LEVEL 118 MEQ/L (98-107); CREATININE FOR GFR 0.94 MG/DL (0.70-1.30); GLOMERULAR FILTRATION RATE > 60.0 (>60); GLUCOSE, FASTING 108 MG/DL (70-100); SODIUM LEVEL 141 MEQ/L (136-145)
--- NOTE | 2018-10-07 07:37 | REP ---
CT ENTEROGRAPHY: CT enterography was performed as per hospital protocol with standard oral contrast followed by 100 mL of intravenous Isovue-370, arterial phase and venous phase imaging is performed as well as sagittal and coronal reconstruction images. Comparison is made with prior CT exam of 10/04/2018 and 09/19/2018. The visualized lung bases demonstrate no evidence of infiltrate. The liver is normal in size with no intrinsic abnormality. The gallbladder is distended with no wall thickening or pericholecystic edema. No definite gallstones are seen. The spleen is normal in size with no intrinsic abnormality. The adrenals and pancreas are normal in appearance. There is no pancreatic duct or biliary duct dilatation, Kidneys demonstrate no hydronephrosis of evidence of mass. There is no abdominal aortic aneurysm. Once again there are several lymph nodes int he mesentery predominately in the left upper quadrant. Some of these are slightly greater than 1 cm in short axis dimension. These are unchanged since the prior studies dating back to 09/19/2018. The hazy mesenteric opacities on the exam of 09/19/2018 are not see on today's exam. There is no periaortic adenopathy. I do not see evidence of significant small bowel or large bowel thickening. There is no free air or free fluid. Urinary bladder is mildly distended and grossly unremarkable. No pelvis mass is seen. The appendix is normal. IMPRESSION: No organ mass or other significant abnormality. Multiple mesenteric lymph nodes are again seen, predominately in the left upper quadrant. These are stable since the prior CT of 09/19/2018. The hazy mesenteric opacities and possible mesenteric inflammation seen on the 09/19/2018 exam appear to have resolved. I see no bowel wall thickening. Electronically Signed by Brandon De La Vega MD 10/07/2018 09:30 A
[2018-10-07] MEDS: CHOLESTYRAMINE 4 GM PWD PKT PO SCH ×4 (09:00→22:32)
[2018-10-07 10:00] VITALS: BP 126/86
[2018-10-07] MEDS: ENOXAPARIN 40 MG/0.4 ML SYRINGE (J1650) SC SCH (10:02)
[2018-10-07] MEDS: POTASSIUM CHLORIDE 10 MEQ SR TABLET PO SCH (10:02)
[2018-10-07] MEDS: LOMOTIL 2.5MG/0.025MG TABLET PO SCH ×2 (10:02→21:30)
[2018-10-07] MEDS ORDERED: POTASSIUM CHLORIDE 10 MEQ SR TABLET PO ONE (11:00)
[2018-10-07] MEDS: ACETAMINOPHEN TAB 650MG DOSE (2X325MG) PO PRN ×2 (12:19→21:31)
[2018-10-07 14:00] VITALS: BP 133/87
--- NOTE | 2018-10-07 14:17 | REP ---
HIDA SCAN: Following the intravenous administration of 6.2 mCi of technetium-99m mebrofenin, multiple images of the right upper quadrant are performed. No defects are seen in the liver. There is biliary to bowel transit at about 40-45 minutes post injection. The gallbladder is not visualized by 1 hour. However delayed images 3 hours after injection do show activity in the gallbladder indicating patency of the cystic duct. Findings of delayed gallbladder visualization suggest biliary stasis. Electronically Signed by Brandon De La Vega MD 10/08/2018 11:17 A
--- NOTE | 2018-10-07 15:14 | IPNPDOC ---
Date Seen The patient was seen on 10/07/18. Progress Note SUBJECTIVE: No significant change. Patient reports possible decrease in bowel movement frequency since admission but uncertain. No acute events reported overnight. Afebrile. Went for HIDA scan in AM. OBJECTIVE PHYSICAL EXAMINATION: VITAL SIGNS: Please see below. General: No acute distress, Alert Eyes: Normal sclera, EOMI, YOVANA HENT: Atraumatic, neck supple, moist mucous membranes Cardiovascular: Normal rate, normal rhythm. No murmurs appreciated. Pulmonary: Clear to auscultation b/l, no wheezing GI: Soft, nondistended, mild generalized tenderness. Skin: Warm and dry Neuro: CN grossly intact. No focal deficits. Strengths equal b/l. Psych: oriented x 3 LABORATORY DATA, IMAGING STUDIES, MICROBIOLOGY: Please see below. ASSESSMENT AND PLAN: 1. Persistent diarrhea - Symptoms reportedly started after getting EGD and Colonoscopy, which were noted to have diverticulosis but no other significant findings. Done 09/16/18. - Has had persistent diarrhea for 3 weeks with 33 lbs weight loss. - CT abdomen with evidence of inflammation in mesentary and SB loops, suspicious for Crohn's disease. - GI Viral panel negative. More likely enteritis than Crohn's disease given patient's age and lack of symptoms prior to Colonoscopy. - Has not improved with support care for 3 weeks. - c/w Cipro and Flagyl, Bentyl and Questran. - IVF support. - HIDA scan w/ evidence of biliary stasis. - f/u celiac workup, VIP, O&P, Gastrin, stool culture for listeria. 2. Psoriasis - Stable. - c/w f/u and medications post discharge. 3. Asthma - Nebs PRN for SOB. - O2 support. DVT ppx: Lovenox Code status: Full code Dispo: Home A-FIB/[facility]ADSVASC A-FIB History Current/History of A-Fib/PAF?: No VS, I&O, 24H, Fishbone Vital Signs/I&O Vital Signs Date Time Temp Pulse Resp B/P (MAP) Pulse Ox O2 Delivery O2 Flow Rate FiO2 10/07/18 10:00 97.9 85 17 126/86 (99) 97 10/04/18 15:53 Room Air I&O- Last 24 Hours up to 6 AM 10/07/18 06:00 Intake Total 3255 ml Output Total 1250 ml Balance 2005 ml Laboratory Data 24H LABS Laboratory Tests 2 10/06/18 18:07: Immunoglobulin A 256.0 10/07/18 05:54: Nucleated Red Blood Cells % (auto) 0.0, Anion Gap 12, Glomerular Filtration Rate > 60.0, Blood Urea Nitrogen 6L, Creatinine 0.94, Sodium Level 141, Potassium Level 3.0L, Chloride Level 118H, Carbon Dioxide Level 11L, Calcium Level 8.3L 10/07/18 09:53: CBC/BMP Laboratory Tests 10/07/18 05:54 Red Blood Count 5.48, Mean Corpuscular Volume 87.4, Mean Corpuscular Hemoglobin 29.9, Mean Corpuscular Hemoglobin Concent 34.2, Red Cell Distribution Width 13.3, Calcium Level 8.3 L Microbiology Microbiology 10/04/18 Gastrointestinal Tract Panel (PCR) - Final, Complete JUDY DICKERSON MD October 07, 2018 15:13
[2018-10-07 18:00] VITALS: BP 135/87
[2018-10-07 20:00] VITALS: BP 131/92
[2018-10-08] VITALS (9 sets, daily range): BP systolic 122–168; BP diastolic 72–100
[2018-10-08] MEDS: metroNIDAZOLE 500 MG in APPROPRIATE DILUENT 1 EA IV SCH ×4 (00:08→23:11)
[2018-10-08] MEDS: DICYCLOMINE 10 MG CAP PO SCH ×5 (00:08→23:10)
[2018-10-08] MEDS: NS 1,000 ML IV SCH ×3 (00:08→15:27)
[2018-10-08 06:34] LABS: HEMATOCRIT 48.2 % (42.0-52.0); HEMOGLOBIN 16.3 g/dl (13.5-17.5); MEAN CORPUSCULAR HEMOGLOBIN 29.3 pg (27.0-33.0); MEAN CORPUSCULAR HGB CONC 33.8 g/dl (32.0-36.5); MEAN CORPUSCULAR VOLUME 86.7 fl (80.0-96.0); PLATELET COUNT, AUTOMATED 285 10^3/uL (150-450); RED BLOOD COUNT 5.56 10^6/uL (4.30-6.10); WHITE BLOOD COUNT 7.6 10^3/uL (4.0-10.0)
[2018-10-08 06:58] LABS: BLOOD UREA NITROGEN 8 MG/DL (7-18); CARBON DIOXIDE LEVEL 11 MEQ/L (21-32); CHLORIDE LEVEL 119 MEQ/L (98-107); CREATININE FOR GFR 1.02 MG/DL (0.70-1.30); GLOMERULAR FILTRATION RATE > 60.0 (>60); GLUCOSE, FASTING 103 MG/DL (70-100); POTASSIUM SERUM 3.2 MEQ/L (3.5-5.1); SODIUM LEVEL 139 MEQ/L (136-145)
[2018-10-08] MEDS: ENOXAPARIN 40 MG/0.4 ML SYRINGE (J1650) SC SCH (08:16)
[2018-10-08] MEDS: POTASSIUM CHLORIDE 10 MEQ SR TABLET PO SCH (08:22)
[2018-10-08] MEDS: LOMOTIL 2.5MG/0.025MG TABLET PO SCH ×2 (08:22→22:41)
[2018-10-08] MEDS: CHOLESTYRAMINE 4 GM PWD PKT PO SCH ×4 (08:23→23:59)
[2018-10-08] MEDS ORDERED: POLYETHYLENE GLYCOL (MIRALAX) 238GM BOTTLE PO ONE (09:00)
[2018-10-08] MEDS ORDERED: MIRALAX *UNIT DOSE* 17GM PACKET PO ONE (09:00)
[2018-10-08] MEDS ORDERED: PROPOFOL 200 MG/20 ML VIAL As Ordered ONE ×4 (18:56→19:26)
[2018-10-08] MEDS ORDERED: LIDOCAINE 2% INJ 100 MG/5 ML SDV (FOR ANES.) As Ordered ONE (18:56)
--- NOTE | 2018-10-08 20:07 | ROOR ---
Patient Name: Sina Garcia Procedure Date: 10/08/2018 7:51 PM Date of : 1970 Age: 47 Gender: Male Note Status: Finalized Procedure: Colonoscopy Indications: Clinically significant diarrhea of unexplained origin, Diarrhea (r/o inflammatory bowel disease,infectious, Weight loss, Pt on immunosuppression/Enbrel for psoriatic arthritis. Providers: Tian HUBER MD Referring MD: 2. Inpatient 2. Inpatient Requesting Provider: Medicines: Monitored Anesthesia Care Complications: No immediate complications. Procedure: Pre-Anesthesia Assessment: - The heart rate, respiratory rate, oxygen saturations, blood pressure, adequacy of pulmonary ventilation, and response to care were monitored throughout the procedure. The Colonoscope was introduced through the anus and advanced to 10 cm into the ileum. The colonoscopy was performed without difficulty. The patient tolerated the procedure well. The quality of the bowel preparation was good. Findings: The perianal and digital rectal examinations were normal. The terminal ileum appeared normal. Biopsies were taken with a cold forceps for histology. Six scattered erosions/shallow ulcerations were found in the cecum and at the ileocecal valve. Biopsies were taken with a cold forceps for histology. Three scattered erosions/shallow ulcerations were found at the anus and in the distal rectum. Biopsies were taken with a cold forceps for histology. A diffuse area of mildly erythematous mucosa was found in the entire colon. This was biopsied with a cold forceps for histology. A 5 mm polyp was found in the ascending colon. The polyp was sessile. The polyp was removed with a cold snare. Resection and retrieval were complete. Small Internal Hemorrhoids. Biopsies for histology were taken with a cold forceps from the entire colon for evaluation of microscopic colitis. Fluid aspiration for AFB smear and culture, Gram stain and ova and parasites was performed. Impression: - The 10-15 cm examined portion of the ileum was normal. Biopsied. - Six erosions/superficial ulcerations in the cecum and at the ileocecal valve. Biopsied - Three erosions/superficial ulcerations at the anus and in the distal rectum. Biopsied. - Mildly erythematous mucosa in the entire examined colon. Biopsied. - One 5 mm polyp in the ascending colon, removed with a cold snare. Resected and retrieved. - Small Internal Hemorrhoids. - Random biopsies were taken with a cold forceps from the entire colon for r/o viral/amebic/ibd/ischemic - Fluid aspiration was performed r/o viral/amebic/ibd/ischemic. Recommendation: - Await pathology results. Tian Huber MD Tian HUBER MD 10/08/2018 8:07:01 PM Electronically signed by Tian HUBER MD Number of Addenda: 0 Note Initiated On: 10/08/2018 7:51 PM Estimated Blood Loss: Estimated blood loss: none.
[2018-10-08] MEDS ORDERED: ONDANSETRON 4MG/2ML VIAL (J2405) IV PRN (20:15)
[2018-10-08] MEDS ORDERED: LR 1,000 ML IV SCH (20:15)
--- NOTE | 2018-10-08 20:15 | ROOR ---
Patient Name: Sina Garcia Procedure Date: 10/08/2018 8:07 PM Date of : 1970 Age: 47 Gender: Male Note Status: Finalized Procedure: Upper GI endoscopy Indications: Endoscopy to assess diarrhea in patient suspected of having disease of the small-bowel Providers: Tian HUBER MD Referring MD: 2. Inpatient 2. Inpatient Requesting Provider: Medicines: Monitored Anesthesia Care Complications: No immediate complications. Procedure: Pre-Anesthesia Assessment: - The heart rate, respiratory rate, oxygen saturations, blood pressure, adequacy of pulmonary ventilation, and response to care were monitored throughout the procedure. The Endoscope was introduced through the mouth, and advanced to the third part of duodenum. The upper GI endoscopy was accomplished without difficulty. The patient tolerated the procedure well. Findings: The examined esophagus was normal. The entire examined stomach was normal. Diffuse slightly nodular mucosa was found in the first portion of the duodenum and in the second portion of the duodenum. Biopsies were taken with a cold forceps for histology. Fluid aspiration for AFB smear and culture and ova and parasites was performed in the third portion of the duodenum. Biopsies were taken with a cold forceps in the first portion of the duodenum, in the second portion of the duodenum and in the third portion of the duodenum for histology. Impression: - Normal esophagus. - Normal stomach. - Subtle slightly nodular mucosa in the first and second portion of the duodenum. Biopsied. - Fluid aspiration was performed. - Biopsies were taken with a cold forceps for histology in the first portion of the duodenum, in the second portion of the duodenum and in the third portion of the duodenum. Recommendation: - Await pathology results. - Return patient to [facility] for ongoing care. Tian Huber MD Tian HUBER MD 10/08/2018 8:15:29 PM Electronically signed by Tian HUBER MD Number of Addenda: 0 Note Initiated On: 10/08/2018 8:07 PM Estimated Blood Loss: Estimated blood loss: none.
--- NOTE | 2018-10-08 20:37 | IPNPDOC ---
Date Seen The patient was seen on 10/08/18. Progress Note SUBJECTIVE: No significant change, still has regular diarrhea. For EGD/Colonoscopy today. Denies any changes clinically. OBJECTIVE PHYSICAL EXAMINATION: VITAL SIGNS: Please see below. General: No acute distress, Alert Eyes: Normal sclera, EOMI, YOVANA HENT: Atraumatic, neck supple, moist mucous membranes Cardiovascular: Normal rate, normal rhythm. No murmurs appreciated. Pulmonary: Clear to auscultation b/l, no wheezing GI: Soft, nondistended, mild generalized tenderness. Skin: Warm and dry Neuro: CN grossly intact. No focal deficits. Strengths equal b/l. Psych: oriented x 3 LABORATORY DATA, IMAGING STUDIES, MICROBIOLOGY: Please see below. ASSESSMENT AND PLAN: 1. Persistent diarrhea - Symptoms reportedly started after getting EGD and Colonoscopy, which were noted to have diverticulosis but no other significant findings. Done 09/16/18. - Has had persistent diarrhea for 3 weeks with 33 lbs weight loss. - CT abdomen with evidence of inflammation in mesentary and SB loops, suspicious for Crohn's disease. - GI Viral panel negative. More likely enteritis than Crohn's disease given patient's age and lack of symptoms prior to Colonoscopy. - Has not improved with support care for 3 weeks. - c/w Cipro and Flagyl, Bentyl and Questran. - IVF support. - HIDA scan w/ evidence of biliary stasis. - f/u celiac workup, VIP, O&P, Gastrin, stool culture for listeria. - EGD/Colonoscopy 10/08 2. Psoriasis - Stable. - c/w f/u and medications post discharge. 3. Asthma - Nebs PRN for SOB. - O2 support. DVT ppx: Lovenox Code status: Full code Dispo: Home A-FIB/[facility] A-FIB History Current/History of A-Fib/PAF?: No VS, I&O, 24H, Fishbone Vital Signs/I&O Vital Signs Date Time Temp Pulse Resp B/P (MAP) Pulse Ox O2 Delivery O2 Flow Rate FiO2 10/08/18 20:26 97.5 59 16 135/83 (100) 100 10/04/18 15:53 Room Air I&O- Last 24 Hours up to 6 AM 10/08/18 06:00 Intake Total 5365 ml Output Total 3375 ml Balance 1990 ml Laboratory Data 24H LABS Laboratory Tests 2 10/08/18 00:00: 10/08/18 06:14: Nucleated Red Blood Cells % (auto) 0.0, Anion Gap 9, Glomerular Filtration Rate > 60.0, Blood Urea Nitrogen 8, Creatinine 1.02, Sodium Level 139, Potassium Level 3.2L, Chloride Level 119H, Carbon Dioxide Level 11L, Calcium Level 8.0L 10/08/18 11:16: CBC/BMP Laboratory Tests 10/08/18 06:14 Red Blood Count 5.56, Mean Corpuscular Volume 86.7, Mean Corpuscular Hemoglobin 29.3, Mean Corpuscular Hemoglobin Concent 33.8, Red Cell Distribution Width 13.7, Calcium Level 8.0 L Microbiology Microbiology 10/04/18 Gastrointestinal Tract Panel (PCR) - Final, Complete 10/08/18 Acid Fast Stain, Received Pending 10/08/18 Mycobacterial Culture, Received Pending 10/08/18 Acid Fast Stain, Received Pending 10/08/18 Mycobacterial Culture, Received Pending 10/08/18 Gram Stain, Received Pending 10/08/18 Body Fluid Culture, Received Pending 10/07/18 Bacterial Culture, Received Pending JUDY DICKERSON MD October 08, 2018 20:37
[2018-10-08] MEDS: PINK BISMUTH SUSP 524MG/30ML ORAL SYRINGE PO SCH (22:41)
[2018-10-09] VITALS (7 sets, daily range): BP systolic 106–165; BP diastolic 62–93
[2018-10-09] MEDS: DICYCLOMINE 10 MG CAP PO SCH ×3 (05:37→18:37)
[2018-10-09] MEDS: NS 1,000 ML IV SCH ×4 (05:37→21:57)
[2018-10-09 07:14] LABS: HEMATOCRIT 48.1 % (42.0-52.0); HEMOGLOBIN 16.7 g/dl (13.5-17.5); MEAN CORPUSCULAR HEMOGLOBIN 30.2 pg (27.0-33.0); MEAN CORPUSCULAR HGB CONC 34.7 g/dl (32.0-36.5); PLATELET COUNT, AUTOMATED 294 10^3/uL (150-450); RED BLOOD COUNT 5.53 10^6/uL (4.30-6.10); WHITE BLOOD COUNT 7.7 10^3/uL (4.0-10.0)
[2018-10-09 08:07] LABS: BLOOD UREA NITROGEN 9 MG/DL (7-18); CARBON DIOXIDE LEVEL 10 MEQ/L (21-32); CHLORIDE LEVEL 120 MEQ/L (98-107); CREATININE FOR GFR 1.06 MG/DL (0.70-1.30); GLOMERULAR FILTRATION RATE > 60.0 (>60); GLUCOSE, FASTING 102 MG/DL (70-100); POTASSIUM SERUM 2.7 MEQ/L (3.5-5.1); SODIUM LEVEL 141 MEQ/L (136-145)
[2018-10-09] MEDS: metroNIDAZOLE 500 MG in APPROPRIATE DILUENT 1 EA IV SCH ×2 (08:07→16:00)
[2018-10-09] MEDS: PINK BISMUTH SUSP 524MG/30ML ORAL SYRINGE PO SCH ×5 (08:08→20:04)
[2018-10-09] MEDS: LOMOTIL 2.5MG/0.025MG TABLET PO SCH ×4 (08:08→20:04)
[2018-10-09] MEDS: POTASSIUM CHLORIDE 10 MEQ SR TABLET PO SCH (08:08)
[2018-10-09] MEDS: CHOLESTYRAMINE 4 GM PWD PKT PO SCH ×4 (08:08→20:03)
[2018-10-09] MEDS: ENOXAPARIN 40 MG/0.4 ML SYRINGE (J1650) SC SCH (08:08)
[2018-10-09] MEDS ORDERED: KCL 20MEQ IN 100ML SWI (KRUN) 20 MEQ in APPROPRIATE DILUENT 1 EA IV ONE ×2 (08:15)
[2018-10-09] MEDS: KCL 10MEQ/100ML SWI (KRUN) SINGLE DOSE IV SCH ×8 (09:40→11:34)
[2018-10-09] MEDS ORDERED: POTASSIUM CHLORIDE 10 MEQ SR TABLET PO ONE (10:45)
[2018-10-09] MEDS: ACETAMINOPHEN TAB 650MG DOSE (2X325MG) PO PRN (15:31)
--- NOTE | 2018-10-09 17:49 | IPNPDOC ---
Date Seen The patient was seen on 10/09/18. Progress Note SUBJECTIVE: No significant change, still has regular diarrhea. s/p EGD and colonoscopy yesterday. K+ 2.7. Attempted to give IV K but patient cannot tolerate. PO K+ given. OBJECTIVE PHYSICAL EXAMINATION: VITAL SIGNS: Please see below. General: No acute distress, Alert Eyes: Normal sclera, EOMI, YOVANA HENT: Atraumatic, neck supple, moist mucous membranes Cardiovascular: Normal rate, normal rhythm. No murmurs appreciated. Pulmonary: Clear to auscultation b/l, no wheezing GI: Soft, nondistended, mild generalized tenderness. Skin: Warm and dry Neuro: CN grossly intact. No focal deficits. Strengths equal b/l. Psych: oriented x 3 LABORATORY DATA, IMAGING STUDIES, MICROBIOLOGY: Please see below. ASSESSMENT AND PLAN: 1. Persistent diarrhea - Symptoms reportedly started after getting EGD and Colonoscopy, which were noted to have diverticulosis but no other significant findings. Done 09/16/18. - Has had persistent diarrhea for 3 weeks with 33 lbs weight loss. - CT abdomen with evidence of inflammation in mesentary and SB loops, suspicious for Crohn's disease. - GI Viral panel negative. More likely enteritis than Crohn's disease given patient's age and lack of symptoms prior to Colonoscopy. - Has not improved with support care for 3 weeks prior to presentation. - c/w Cipro and Flagyl, Bentyl and Questran complete 7 days. - IVF support. - HIDA scan w/ evidence of biliary stasis. - f/u celiac workup, VIP, O&P, Gastrin, stool culture for listeria. - s/p EGD/Colonoscopy 10/08. f/u biopsies. 2. Psoriasis - Stable. - c/w f/u and medications post discharge. 3. Asthma - Nebs PRN for SOB. - O2 support. DVT ppx: Lovenox Code status: Full code Dispo: Home VS, I&O, 24H, Fishbone Vital Signs/I&O Vital Signs Date Time Temp Pulse Resp B/P (MAP) Pulse Ox O2 Delivery O2 Flow Rate FiO2 10/09/18 14:00 97.6 99 18 143/76 (98) 100 10/04/18 15:53 Room Air I&O- Last 24 Hours up to 6 AM 10/09/18 06:00 Intake Total 4100 ml Output Total 750 ml Balance 3350 ml Laboratory Data 24H LABS Laboratory Tests 2 10/09/18 06:55: Nucleated Red Blood Cells % (auto) 0.0, Anion Gap 11, Glomerular Filtration Rate > 60.0, Blood Urea Nitrogen 9, Creatinine 1.06, Sodium Level 141, Potassium Level 2.7*L, Chloride Level 120H, Carbon Dioxide Level 10L, Calcium Level 8.0L 10/09/18 15:20: CBC/BMP Laboratory Tests 10/09/18 06:55 Red Blood Count 5.53, Mean Corpuscular Volume 87.0, Mean Corpuscular Hemoglobin 30.2, Mean Corpuscular Hemoglobin Concent 34.7, Red Cell Distribution Width 13.5, Calcium Level 8.0 L Microbiology Microbiology 10/04/18 Gastrointestinal Tract Panel (PCR) - Final, Complete 10/08/18 Gram Stain - Final, Resulted 10/08/18 Body Fluid Culture, Resulted Pending 10/08/18 Acid Fast Stain, Received Pending 10/08/18 Mycobacterial Culture, Received Pending 10/08/18 Acid Fast Stain, Received Pending 10/08/18 Mycobacterial Culture, Received Pending 10/08/18 Gram Stain - Final, Resulted 10/08/18 Body Fluid Culture, Resulted Pending JUDY DICKERSON MD October 09, 2018 17:49
[2018-10-09] MEDS ORDERED: ONDANSETRON 4 MG TAB (S0181) PO ONE (20:30)
[2018-10-10] MEDS: DICYCLOMINE 10 MG CAP PO SCH ×4 (00:19→17:46)
[2018-10-10] MEDS: metroNIDAZOLE 500 MG in APPROPRIATE DILUENT 1 EA IV SCH ×3 (00:20→15:51)
[2018-10-10 02:00] VITALS: BP 120/62
[2018-10-10] MEDS: NS 1,000 ML IV SCH ×2 (05:26→15:49)
[2018-10-10 06:00] VITALS: BP 124/76
[2018-10-10 06:43] LABS: HEMATOCRIT 50.2 % (42.0-52.0); HEMOGLOBIN 17.1 g/dl (13.5-17.5); MEAN CORPUSCULAR HEMOGLOBIN 29.5 pg (27.0-33.0); MEAN CORPUSCULAR HGB CONC 34.1 g/dl (32.0-36.5); MEAN CORPUSCULAR VOLUME 86.7 fl (80.0-96.0); PLATELET COUNT, AUTOMATED 300 10^3/uL (150-450); RED BLOOD COUNT 5.79 10^6/uL (4.30-6.10); WHITE BLOOD COUNT 7.6 10^3/uL (4.0-10.0)
[2018-10-10 07:07] LABS: BLOOD UREA NITROGEN 13 MG/DL (7-18); CALCIUM LEVEL 8.7 MG/DL (8.5-10.1); CARBON DIOXIDE LEVEL 9 MEQ/L (21-32); CHLORIDE LEVEL 119 MEQ/L (98-107); CREATININE FOR GFR 1.23 MG/DL (0.70-1.30); GLOMERULAR FILTRATION RATE > 60.0 (>60); GLUCOSE, FASTING 102 MG/DL (70-100); POTASSIUM SERUM 3.2 MEQ/L (3.5-5.1); SODIUM LEVEL 140 MEQ/L (136-145)
[2018-10-10] MEDS: LOMOTIL 2.5MG/0.025MG TABLET PO SCH ×4 (08:02→20:05)
[2018-10-10] MEDS: POTASSIUM CHLORIDE 10 MEQ SR TABLET PO SCH (08:02)
[2018-10-10] MEDS: CHOLESTYRAMINE 4 GM PWD PKT PO SCH ×4 (08:03→20:05)
[2018-10-10] MEDS: PINK BISMUTH SUSP 524MG/30ML ORAL SYRINGE PO SCH ×4 (08:03→20:05)
[2018-10-10] MEDS: ENOXAPARIN 40 MG/0.4 ML SYRINGE (J1650) SC SCH (08:03)
[2018-10-10 10:00] VITALS: BP 118/82
[2018-10-10 14:00] VITALS: BP 141/89
[2018-10-10 18:00] VITALS: BP 115/80
--- NOTE | 2018-10-10 18:38 | IPNPDOC ---
Date Seen The patient was seen on 10/10/18. Progress Note SUBJECTIVE: Diarrhea had not improved and reportedly even worse. K repleted. Ongoing need. Patient requested transfer today to get 2nd GI opinion. Call made to [facility]. Transfer was declined as GI had already done all necessary workup with patient and they likely cannot offer anything further. In addition, insurance may not cover transfer or care for this type of transfer. Patient agree to stay here for now. OBJECTIVE PHYSICAL EXAMINATION: VITAL SIGNS: Please see below. General: No acute distress, Alert Eyes: Normal sclera, EOMI, YOVANA HENT: Atraumatic, neck supple, moist mucous membranes Cardiovascular: Normal rate, normal rhythm. No murmurs appreciated. Pulmonary: Clear to auscultation b/l, no wheezing GI: Soft, nondistended, mild generalized tenderness. Skin: Warm and dry Neuro: CN grossly intact. No focal deficits. Strengths equal b/l. Psych: oriented x 3 LABORATORY DATA, IMAGING STUDIES, MICROBIOLOGY: Please see below. ASSESSMENT AND PLAN: 1. Persistent diarrhea - Symptoms reportedly started after getting EGD and Colonoscopy, which were no bay to have diverticulosis but no other significant findings. Done 09/16/18. - Has had persistent diarrhea for 3 weeks with 33 lbs weight loss. - CT abdomen with evidence of inflammation in mesentary and SB loops, suspicious for Crohn's disease. - GI Viral panel negative. More likely enteritis than Crohn's disease given patient's age and lack of symptoms prior to Colonoscopy. - Has not improved with support care for 3 weeks prior to presentation. - c/w Cipro and Flagyl, Bentyl and Questran complete 7 days. - IVF support. - HIDA scan w/ evidence of biliary stasis. - f/u celiac workup, VIP, O&P, Gastrin, stool culture for listeria. - s/p EGD/Colonoscopy 10/08. f/u biopsies. 2. Psoriasis - Stable. - c/w f/u and medications post discharge. 3. Asthma - Nebs PRN for SOB. - O2 support. DVT ppx: Lovenox Code status: Full code Dispo: Home VS, I&O, 24H, Fishbone Vital Signs/I&O Vital Signs Date Time Temp Pulse Resp B/P (MAP) Pulse Ox O2 Delivery O2 Flow Rate FiO2 10/10/18 18:00 97.1 65 20 115/80 (92) 98 10/04/18 15:53 Room Air I&O- Last 24 Hours up to 6 AM 10/10/18 06:00 Intake Total 4470 ml Output Total 1050 ml Balance 3420 ml Laboratory Data 24H LABS Laboratory Tests 2 10/10/18 05:51: Nucleated Red Blood Cells % (auto) 0.0, Anion Gap 12, Glomerular Filtration Rate > 60.0, Blood Urea Nitrogen 13, Creatinine 1.23, Sodium Level 140, Potassium Level 3.2L, Chloride Level 119H, Carbon Dioxide Level 9L, Calcium Level 8.7 CBC/BMP Laboratory Tests 10/10/18 05:51 Red Blood Count 5.79, Mean Corpuscular Volume 86.7, Mean Corpuscular Hemoglobin 29.5, Mean Corpuscular Hemoglobin Concent 34.1, Red Cell Distribution Width 14.0, Calcium Level 8.7 Microbiology Microbiology 10/04/18 Gastrointestinal Tract Panel (PCR) - Final, Complete 10/08/18 Gram Stain - Final, Complete 10/08/18 Body Fluid Culture - Final, Complete 10/08/18 Acid Fast Stain, Received Pending 10/08/18 Mycobacterial Culture, Received Pending 10/08/18 Acid Fast Stain, Received Pending 10/08/18 Mycobacterial Culture, Received Pending 10/08/18 Gram Stain - Final, Resulted 10/08/18 Body Fluid Culture, Resulted Pending JUDY DICKERSON MD October 10, 2018 18:38
[2018-10-10 22:00] VITALS: BP 143/93
[2018-10-11] MEDS: DICYCLOMINE 10 MG CAP PO SCH ×4 (00:29→17:15)
[2018-10-11] MEDS: metroNIDAZOLE 500 MG in APPROPRIATE DILUENT 1 EA IV SCH ×3 (00:29→17:15)
[2018-10-11] MEDS: NS 1,000 ML IV SCH ×3 (00:29→17:15)
[2018-10-11 02:00] VITALS: BP 138/94
[2018-10-11 06:00] VITALS: BP 113/58
[2018-10-11 06:23] LABS: HEMATOCRIT 46.4 % (42.0-52.0); HEMOGLOBIN 15.8 g/dl (13.5-17.5); MEAN CORPUSCULAR HEMOGLOBIN 28.9 pg (27.0-33.0); MEAN CORPUSCULAR HGB CONC 34.1 g/dl (32.0-36.5); PLATELET COUNT, AUTOMATED 298 10^3/uL (150-450); RED BLOOD COUNT 5.46 10^6/uL (4.30-6.10); WHITE BLOOD COUNT 9.4 10^3/uL (4.0-10.0)
[2018-10-11 06:38] LABS: CALCIUM LEVEL 8.3 MG/DL (8.5-10.1); CREATININE FOR GFR 1.44 MG/DL (0.70-1.30); GLOMERULAR FILTRATION RATE 55.5 (>60); POTASSIUM SERUM 3.1 MEQ/L (3.5-5.1)
[2018-10-11] MEDS: ENOXAPARIN 40 MG/0.4 ML SYRINGE (J1650) SC SCH (08:04)
[2018-10-11] MEDS: CHOLESTYRAMINE 4 GM PWD PKT PO SCH ×4 (08:04→20:49)
[2018-10-11] MEDS: POTASSIUM CHLORIDE 10 MEQ SR TABLET PO SCH (08:05)
[2018-10-11] MEDS: LOMOTIL 2.5MG/0.025MG TABLET PO SCH ×4 (08:05→20:49)
[2018-10-11] MEDS: PINK BISMUTH SUSP 524MG/30ML ORAL SYRINGE PO SCH ×4 (08:05→20:50)
[2018-10-11 08:26] LABS: MAGNESIUM LEVEL 2.3 MG/DL (1.8-2.4)
[2018-10-11 10:00] VITALS: BP 131/82
--- NOTE | 2018-10-11 11:53 | IPNPDOC ---
Date Seen The patient was seen on 10/11/18. Progress Note SUBJECTIVE: Diarrhea may have slightly improved? difficult to tell. K repletion today. No acute events overnight. OBJECTIVE PHYSICAL EXAMINATION: VITAL SIGNS: Please see below. General: No acute distress, Alert Eyes: Normal sclera, EOMI, YOVANA HENT: Atraumatic, neck supple, moist mucous membranes Cardiovascular: Normal rate, normal rhythm. No murmurs appreciated. Pulmonary: Clear to auscultation b/l, no wheezing GI: Soft, nondistended, mild generalized tenderness. Skin: Warm and dry Neuro: CN grossly intact. No focal deficits. Strengths equal b/l. Psych: oriented x 3 LABORATORY DATA, IMAGING STUDIES, MICROBIOLOGY: Please see below. ASSESSMENT AND PLAN: 1. Persistent diarrhea - Symptoms reportedly started after getting EGD and Colonoscopy, which were noted to have diverticulosis but no other significant findings. Done 09/16/18. - Has had persistent diarrhea for 3 weeks with 33 lbs weight loss. - CT abdomen with evidence of inflammation in mesentary and SB loops, suspicious for Crohn's disease. - GI Viral panel negative. More likely enteritis than Crohn's disease given patient's age and lack of symptoms prior to Colonoscopy. - Has not improved with support care for 3 weeks prior to presentation. - c/w Cipro and Flagyl, Bentyl and Questran complete 7 days. - IVF support. - HIDA scan w/ evidence of biliary stasis. - f/u celiac workup, VIP, O&P, Gastrin, stool culture for listeria. - s/p EGD/Colonoscopy 10/08. f/u biopsies. - Overall, frequency appeared to have decrease slightly around 8x/day compare to 15x/day on admission? - Had requested transfer for 2nd opinion but [facility] had politely rejected as patient already had all GI workup here. 2. Psoriasis - Stable. - c/w f/u and medications post discharge. 3. Asthma - Nebs PRN for SOB. - O2 support. DVT ppx: Lovenox Code status: Full code Dispo: Home VS, I&O, 24H, Fishbone Vital Signs/I&O Vital Signs Date Time Temp Pulse Resp B/P (MAP) Pulse Ox O2 Delivery O2 Flow Rate FiO2 10/11/18 06:00 98.3 62 16 113/58 (76) 99 I&O- Last 24 Hours up to 6 AM 10/11/18 06:00 Intake Total 4395 ml Output Total 1175 ml Balance 3220 ml Laboratory Data 24H LABS Laboratory Tests 2 10/11/18 05:31: Nucleated Red Blood Cells % (auto) 0.0, Anion Gap 11, Glomerular Filtration Rate 55.5L, Blood Urea Nitrogen 16, Creatinine 1.44H, Sodium Level 140, Potassium Level 3.1L, Chloride Level 119H, Carbon Dioxide Level 10L, Calcium Level 8.3L, Magnesium Level 2.3 CBC/BMP Laboratory Tests 10/11/18 05:31 Red Blood Count 5.46, Mean Corpuscular Volume 85.0, Mean Corpuscular Hemoglobin 28.9, Mean Corpuscular Hemoglobin Concent 34.1, Red Cell Distribution Width 13.8, Calcium Level 8.3 L Microbiology Microbiology 10/04/18 Gastrointestinal Tract Panel (PCR) - Final, Complete 10/08/18 Gram Stain - Final, Complete 10/08/18 Body Fluid Culture - Final, Complete 10/08/18 Acid Fast Stain, Received Pending 10/08/18 Mycobacterial Culture, Received Pending 10/08/18 Acid Fast Stain, Received Pending 10/08/18 Mycobacterial Culture, Received Pending 10/08/18 Gram Stain - Final, Complete 10/08/18 Body Fluid Culture - Final, Complete JUDY DICKERSON MD October 11, 2018 11:53
[2018-10-11 14:00] VITALS: BP 151/98
[2018-10-11 18:00] VITALS: BP 140/86
[2018-10-11] MEDS ORDERED: ONDANSETRON 4MG/2ML VIAL (J2405) IV PRN (20:45)
[2018-10-11 22:00] VITALS: BP 151/91
[2018-10-12] MEDS: metroNIDAZOLE 500 MG in APPROPRIATE DILUENT 1 EA IV SCH ×3 (00:13→16:28)
[2018-10-12] MEDS: DICYCLOMINE 10 MG CAP PO SCH ×4 (00:13→17:46)
[2018-10-12] MEDS ORDERED: CALCIUM CARBONATE 500 MG CHEW U/D PO PRN (01:30)
[2018-10-12] MEDS: PANTOPRAZOLE 40MG INJ (PROTONIX) (C9113) IV SCH ×2 (01:36→21:50)
[2018-10-12 02:00] VITALS: BP 127/82
[2018-10-12] MEDS: NS 1,000 ML IV SCH ×3 (05:10→14:44)
[2018-10-12 06:00] VITALS: BP 134/80
[2018-10-12 08:31] LABS: CALCIUM LEVEL 8.3 MG/DL (8.5-10.1); CREATININE FOR GFR 1.51 MG/DL (0.70-1.30); GLOMERULAR FILTRATION RATE 52.5 (>60); POTASSIUM SERUM 2.7 MEQ/L (3.5-5.1)
[2018-10-12] MEDS: CHOLESTYRAMINE 4 GM PWD PKT PO SCH ×4 (08:39→21:50)
[2018-10-12] MEDS: POTASSIUM CHLORIDE 10 MEQ SR TABLET PO SCH (08:39)
[2018-10-12] MEDS: LOMOTIL 2.5MG/0.025MG TABLET PO SCH ×4 (08:39→22:07)
[2018-10-12] MEDS: ENOXAPARIN 40 MG/0.4 ML SYRINGE (J1650) SC SCH (08:40)
[2018-10-12] MEDS: PINK BISMUTH SUSP 524MG/30ML ORAL SYRINGE PO SCH ×4 (08:40→21:50)
[2018-10-12 10:00] VITALS: BP 165/84
--- NOTE | 2018-10-12 10:46 | IPNPDOC ---
Date Seen The patient was seen on 10/12/18. Progress Note SUBJECTIVE: Relatively unchanged since yesterday. Diarrhea ongoing. Had more discomfort yesterday and started on tums, protonix. K 2.7. To get 80 K PO total today. OBJECTIVE PHYSICAL EXAMINATION: VITAL SIGNS: Please see below. General: No acute distress, Alert Eyes: Normal sclera, EOMI, YOVANA HENT: Atraumatic, neck supple, moist mucous membranes Cardiovascular: Normal rate, normal rhythm. No murmurs appreciated. Pulmonary: Clear to auscultation b/l, no wheezing GI: Soft, nondistended, mild generalized tenderness. Skin: Warm and dry Neuro: CN grossly intact. No focal deficits. Strengths equal b/l. Psych: oriented x 3 LABORATORY DATA, IMAGING STUDIES, MICROBIOLOGY: Please see below. ASSESSMENT AND PLAN: 1. Persistent diarrhea - Symptoms reportedly started after getting EGD and Colonoscopy, which were noted to have diverticulosis but no other significant findings. Done 09/16/18. - Has had persistent diarrhea for 3 weeks with 33 lbs weight loss. - CT abdomen with evidence of inflammation in mesentary and SB loops, suspicious for Crohn's disease. - GI Viral panel negative. More likely enteritis than Crohn's disease given patient's age and lack of symptoms prior to Colonoscopy. - Has not improved with support care for 3 weeks prior to presentation. - c/w Bentyl and Questran complete 7 days. Last day of Flagyl today to complete 7 days. Was also on Cipro for several days. - IVF support. - HIDA scan w/ evidence of biliary stasis. - f/u celiac workup, VIP, O&P, Gastrin, stool culture for listeria. - s/p EGD/Colonoscopy 10/08. f/u biopsies. - Overall, frequency appeared to have decrease slightly around 7-8x/day compare to 15x/day on admission? - Had requested transfer for 2nd opinion but [facility] had politely rejected as patient already had all GI workup here. - However, may need transfer at some point. Possible if initiated by GI for further evaluation rather than patient. In that case, will need GI to speak to automotive service consultant there. 2. Psoriasis - Stable. - c/w f/u and medications post discharge. 3. Asthma - Nebs PRN for SOB. - O2 support. DVT ppx: Lovenox Code status: Full code Dispo: Home VS, I&O, 24H, Fishbone Vital Signs/I&O Vital Signs Date Time Temp Pulse Resp B/P (MAP) Pulse Ox O2 Delivery O2 Flow Rate FiO2 10/12/18 10:00 97.1 85 19 165/84 (111) 97 I&O- Last 24 Hours up to 6 AM 10/12/18 06:00 Intake Total 6205 ml Output Total 1550 ml Balance 4655 ml Laboratory Data 24H LABS Laboratory Tests 2 10/12/18 07:54: Anion Gap 13, Glomerular Filtration Rate 52.5L, Blood Urea Nitrogen 19H, Creatinine 1.51H, Sodium Level 137, Potassium Level 2.7*L, Chloride Level 115H, Carbon Dioxide Level 9L, Calcium Level 8.3L CBC/BMP Laboratory Tests 10/12/18 07:54 Calcium Level 8.3 L Microbiology Microbiology 10/04/18 Gastrointestinal Tract Panel (PCR) - Final, Complete 10/08/18 Gram Stain - Final, Complete 10/08/18 Body Fluid Culture - Final, Complete 10/08/18 Acid Fast Stain, Received Pending 10/08/18 Mycobacterial Culture, Received Pending 10/08/18 Acid Fast Stain, Received Pending 10/08/18 Mycobacterial Culture, Received Pending 10/08/18 Gram Stain - Final, Complete 10/08/18 Body Fluid Culture - Final, Complete JUDY DICKERSON MD October 12, 2018 10:46
[2018-10-12] MEDS: MULTIVITAMINS/MINERALS THERAP 1 TAB PO SCH (12:12)
[2018-10-12] MEDS ORDERED: POTASSIUM CHLORIDE 10 MEQ SR TABLET PO ONE (13:00)
[2018-10-12 14:00] VITALS: BP 139/90
[2018-10-12 18:00] VITALS: BP 139/87
[2018-10-12 22:00] VITALS: BP 138/89
[2018-10-13] MEDS: metroNIDAZOLE 500 MG in APPROPRIATE DILUENT 1 EA IV SCH ×2 (00:07→08:03)
[2018-10-13] MEDS: DICYCLOMINE 10 MG CAP PO SCH ×4 (00:07→17:24)
[2018-10-13] MEDS: NS 1,000 ML IV SCH ×2 (00:08→08:03)
[2018-10-13 02:00] VITALS: BP 137/84
[2018-10-13 06:00] VITALS: BP 127/58
[2018-10-13 06:50] LABS: CALCIUM LEVEL 8.1 MG/DL (8.5-10.1); CREATININE FOR GFR 1.69 MG/DL (0.70-1.30); GLOMERULAR FILTRATION RATE 46.1 (>60); POTASSIUM SERUM 2.9 MEQ/L (3.5-5.1)
[2018-10-13] MEDS: LOMOTIL 2.5MG/0.025MG TABLET PO SCH ×4 (08:03→20:18)
[2018-10-13] MEDS: POTASSIUM CHLORIDE 10 MEQ SR TABLET PO SCH (08:04)
[2018-10-13] MEDS: ENOXAPARIN 40 MG/0.4 ML SYRINGE (J1650) SC SCH (08:04)
[2018-10-13] MEDS: MULTIVITAMINS/MINERALS THERAP 1 TAB PO SCH (08:04)
[2018-10-13] MEDS: PINK BISMUTH SUSP 524MG/30ML ORAL SYRINGE PO SCH ×4 (08:04→20:18)
[2018-10-13] MEDS: CHOLESTYRAMINE 4 GM PWD PKT PO SCH ×2 (09:27→13:43)
[2018-10-13 10:00] VITALS: BP 143/74
[2018-10-13 14:00] VITALS: BP 126/60
[2018-10-13] MEDS: IPRATROPIUM 0.5MG/ALBUTEROL 2.5MG INH SOL UD 3ML (DUONEB)(J7620) NEB PRN (15:38)
--- NOTE | 2018-10-13 15:50 | IPNPDOC ---
Date Seen The patient was seen on 10/13/18. Progress Note SUBJECTIVE: Relatively unchanged since yesterday. Diarrhea ongoing. Continues to lose 1-2 lbs each day. Looking weaker and weaker. Cr continue to trend up. K+ 2.9 today. OBJECTIVE PHYSICAL EXAMINATION: VITAL SIGNS: Please see below. General: No acute distress, Alert Eyes: Normal sclera, EOMI, YOVANA HENT: Atraumatic, neck supple, moist mucous membranes Cardiovascular: Normal rate, normal rhythm. No murmurs appreciated. Pulmonary: Clear to auscultation b/l, no wheezing GI: Soft, nondistended, nontender Skin: Warm and dry Neuro: CN grossly intact. No focal deficits. Strengths equal b/l. Psych: oriented x 3 LABORATORY DATA, IMAGING STUDIES, MICROBIOLOGY: Please see below. ASSESSMENT AND PLAN: 1. Persistent diarrhea - Symptoms reportedly started after getting EGD and Colonoscopy, which were noted to have diverticulosis but no other significant findings. Done 09/16/18. - Has had persistent diarrhea for 3 weeks with 33 lbs weight loss prior to coming in, continue to lose weight while in hospital. >40 pounds total this month. - CT abdomen with evidence of inflammation in mesentary and SB loops, suspicious for Crohn's disease. - GI Viral panel negative. - c/w Bentyl and Questran. complete 7 days of flagyl and several days of Cipro. - IVF support. - HIDA scan w/ evidence of biliary stasis. - celiac workup negative. f/u VIP, O&P, Gastrin, stool culture for listeria. - s/p EGD/Colonoscopy 10/08. f/u biopsies. - Overall, frequency appeared to have decrease slightly around 7-8x/day compare to 15x/day on admission? Abdominal discomfort appear to slightly improve as well. - Had requested transfer for 2nd opinion but [facility] had politely rejected as patient already had all GI workup here. - Spoke with Dr. Huber, possible underlying autoimmune bowel disease with the Embrel stopped 1 week prior to initial colonoscopy. - ID consult. Once infectious etiology ruled out, maybe can try to start on steroids. 2. Psoriasis - Stable. - c/w f/u and medications post discharge. 3. Asthma - Nebs PRN for SOB. - O2 support. DVT ppx: Lovenox Code status: Full code Dispo: Home VS, I&O, 24H, [place] Vital Signs/I&O Vital Signs Date Time Temp Pulse Resp B/P (MAP) Pulse Ox O2 Delivery O2 Flow Rate FiO2 10/13/18 14:00 97.6 83 19 126/60 (82) 99 I&O- Last 24 Hours up to 6 AM 10/13/18 06:00 Intake Total 2170 ml Output Total 1950 ml Balance 220 ml Laboratory Data 24H LABS Laboratory Tests 2 10/13/18 06:00: Anion Gap 15, Glomerular Filtration Rate 46.1L, Blood Urea Nitrogen 26H, Creat inine 1.69H, Sodium Level 137, Potassium Level 2.9*L, Chloride Level 113H, Carbon Dioxide Level 9L, Calcium Level 8.1L CBC/BMP Laboratory Tests 10/13/18 06:00 Calcium Level 8.1 L Microbiology Microbiology 10/04/18 Gastrointestinal Tract Panel (PCR) - Final, Complete 10/08/18 Gram Stain - Final, Complete 10/08/18 Body Fluid Culture - Final, Complete 10/08/18 Acid Fast Stain, Received Pending 10/08/18 Mycobacterial Culture, Received Pending 10/08/18 Acid Fast Stain, Received Pending 10/08/18 Mycobacterial Culture, Received Pending 10/08/18 Gram Stain - Final, Complete 10/08/18 Body Fluid Culture - Final, Complete JUDY DICKERSON MD October 13, 2018 15:50
[2018-10-13] MEDS ORDERED: POTASSIUM CHLORIDE 10 MEQ SR TABLET PO ONE (16:45)
[2018-10-13] MEDS: MESALAMINE 250 MG CR CAP PO SCH ×2 (17:25→20:18)
[2018-10-13] MEDS: methylPREDNISolone INJ 40 MG/1 ML VIAL (J2920) IV SCH (17:25)
[2018-10-13] MEDS: KCL 40MEQ in NS 1000ML 1,000 ML IV SCH (17:26)
[2018-10-13] MEDS: ACETAMINOPHEN TAB 650MG DOSE (2X325MG) PO PRN (17:33)
[2018-10-13 18:00] VITALS: BP 135/88
--- NOTE | 2018-10-13 19:33 | CR.PDOC ---
General Date of Consultation: October 13, 2018 Referring Provider: JUDY DICKERSON MD Primary Care Physician: Klaus Ocasio [facility] Attending Physician: Caitlin Cao MD Consultation INFECTIOUS DISEASE CONSULT REASON FOR CONSULTATION/CHIEF COMPLAINT: rule out infectious diarrhea HISTORY OF PRESENT ILLNESS: Mr. Garcia is a 47 yo M with PMH of asthma and psoriatic arthritis. He is chronically on Enbrel for his arthirits, started February 2018 by [employer]. He reports having responded really well with this drug, and was told by his Vocational Auto Body Instructor to stop it 2 weeks prior to his upcoming procedures. He underwent an EGD for epigastric pain with concern for ulcer on 09/16/[address] Melgar, as well as simultaneous first-ever screening colonoscopy. No biopsies were taken, as no abnormalities were reportedly found. He then began experiencing diarrhea within 12 hours post- operatively, up to 15 loose watery BMs/day. He was since evaluated in the ER & by his PCP, was treated with supportive care with NSAIDs, Lomotil, and Loperamide for presumed mild colitis. He did not improve, and unfortunately began to weaken and became more dehydrated. He reportedly lost 48 pounds during this time frame, and was admitted for continued dehydration & diarrhea. Since, he has undergone repeat EGD & colonoscopy with Dr. Huber on 10/09, pathology revealing essentially diffuse inflammation with erythematous mucosa throughout, six areas of ulceration in cecum & ileocecal valve, three ulcers at anus & distal rectum. ID was consulted to help assess if there might be an underlying infectious component to his symptoms. He continues on anti-diarrheal regimen with mild improvement, currently down to 5-6 loose watery BMs/day, but prior to this illness, his normal was 1 formed stool/day. Of note, he continues to lose over 1L of stool volume/day and renal function has been worsening gradually since admission. He has no other complaints when examined. States he does indeed have an appetite, but is scared of eating because of his diarrhea. Denies recent valarie el, illnesses, or sick contact. The only med change was stopping Enbrel as noted above. He denies bloody stools or black tarry stools. Denies family history of GI illness. ALLERGIES: Please see below. HOME MEDICATIONS: Please see below. CURRENT MEDS: Lovenox SC Tylenol DuoNeb Bentyl Flagyl Questran Normal saline Pepto-Bismol Lomotil Zofran Protonix Tums Multivitamin PAST MEDICAL HISTORY: asthma psoriatic arthritis PAST SURGICAL HISTORY: EGD & screening Colon 09/16/2018. Repeat Colon 10/08/18. FAMILY HISTORY: mother with Mesenteric A. Stenosis s/p Angio, and renal disease SOCIAL HISTORY: denies alcohol, drugs, illicit substances. 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 REVIEW OF SYSTEMS: Constitutional: Denies fever, chills, night sweats. Admits 47lb wt loss since 09/16/18, fatigue HEENT: Denies eye pain, vision change Skin: Denies any rashes or lesions Pulmonary: Denies dyspnea, cough, wheezing Cardiac: Denies chest pain, palpitations, edema GI: Denies nausea, vomiting, abdominal pain, constipation. Admits diarrhea since 09/16/18 MSK: Admits to right hip and leg pain that is improving. Denies pain elsewhere Neurologic: Denies weakness, numbness/tingling, loss of sensation PHYSICAL EXAMINATION: VITAL SIGNS: Please see below. General exam: A&O 3, NAD, resting comfortably Eye exam: PERRL, EOMI ENT: Atraumatic, normocephalic, dry mucous membranes, no oral lesions Neck: Supple, no adenopathy Cardiac: RRR, normal S1 & S2, no murmur Respiratory: CTAB, good air exchange, no wheezing, rhonchi, or rales Abdomen: normoactive bowel sounds, soft, nontender, nondistended. No masses, hernia, or surgical scars Extremity: no edema or tenderness. 2+ dp pulses b/l Skin: [place], warm, dry, no visible rash or lesions Neuro: Strength 5/5 throughout. Normal tone, sensation intact, no focal deficit Psych: Normal mood, flat affect LABORATORY DATA: Please see below. ASSESSMENT/PLAN: His diarrhea has persisted since initial colonoscopy on 09/16/18. He has loose, watery stools with associated wt loss, failed on Imodium, Imotil, and NSAIDs. His CT of abd on 10/04 reveals "inflammatory changes with mesenteric lymph nodes", suggestive of possible Crohn's. His repeat colonoscopy 10/09 shows duodenum with "architectural distortion and blunting/flattening of villi," suggesting possible Celiac although ttg testing is negative. However, terminal ileum pathology with "markedly inflamed and ulcerated mucosa with microabscess," suggestive of IBD. Biopsy of colon ulcer revealed "inflamed and ulcerated colonic mucosa with expansion of lamina propria by acute and chronic inflammatory cells, scattered cryptitis and crypt abscesses." Remainder of his biopsies were similarly inflamed in ascending polyp, random biopsies of colon, and rectal ulcer. Given these findings, it is likely that he has Crohn's, especially in light of his other chronic inflammatory disease of Psoriatic Arthritis. He has been afebrile and without leukocytosis since admission, with borderline CRP of 0.39, making this less likely to be infectious. GI panel by PCR was twice negative for viral bacterial and parasites and Cdiff. he was treated with flagyl without response. Stool studies currently pending, including CMV & Microsporidium, O&P x3. Pt is agreeable to Hepatitis & HIV testing. Agree with continuing treatment for presumed IBD. There is no contraindication with prednisone, and may restart Enbrel afterwards, as the latter drug may take time to show results. Please hold off on antibiotics for now, as we await lab results. Stool culture will be sent to [facility] We also recommend a Nephro consult in light of his significant volume loss, dehydration, and worsening renal function with low urine o/p and rising Cr. Thank you for the consult. We will follow along with you. Vital Signs/I&O Vital Signs Date Time Temp Pulse Resp B/P (MAP) Pulse Ox O2 Delivery O2 Flow Rate FiO2 10/13/18 14:00 97.6 83 19 126/60 (82) 99 I&O- Last 24 Hours up to 6 AM 10/13/18 06:00 Intake Total 2170 ml Output Total 1950 ml Balance 220 ml Laboratory Data Labs 24H Laboratory Tests 2 10/13/18 06:00: Anion Gap 15, Glomerular Filtration Rate 46.1L, Blood Urea Nitrogen 26H, Crea tinine 1.69H, Sodium Level 137, Potassium Level 2.9*L, Chloride Level 113H, Carbon Dioxide Level 9L, Calcium Level 8.1L CBC/BMP Laboratory Tests 10/13/18 06:00 Calcium Level 8.1 L Microbiology Microbiology 10/04/18 Gastrointestinal Tract Panel (PCR) - Final, Complete 10/08/18 Gram Stain - Final, Complete 10/08/18 Body Fluid Culture - Final, Complete 10/08/18 Acid Fast Stain, Received Pending 10/08/18 Mycobacterial Culture, Received Pending 10/08/18 Acid Fast Stain, Received Pending 10/08/18 Mycobacterial Culture, Received Pending 10/08/18 Gram Stain - Final, Complete 10/08/18 Body Fluid Culture - Final, Complete Allergies Coded Allergies: latex (Verified Allergy, Intermediate, Itching, 10/04/18) Pt states sensitivity to latex gloves. Gloves caused itching. epinephrine (Verified Adverse Reaction, Intermediate, HIGH DOSE EPI - SEVERE SVT, 09/08/18) codeine (Verified Adverse Reaction, Mild, hallucinations, 09/08/18) Home Medications Scheduled Etanercept (Enbrel) 25 Mg/0.5 Ml Syringe, 50 MG SC QWEEK, (Reported) SUNDAYS Scheduled PRN Acetaminophen (Acetaminophen) 500 Mg Tablet, 500 MG PO Q4H PRN for PAIN, (Reported) Albuterol Sulfate (Proair Hfa) 8.5 Gm Hfa.aer.ad, 2 PUFF INH Q4H PRN for SHORTNESS OF BREATH, (Reported) Diphenoxylate HCl/Atropine (Diphenoxylate-Atrop 2.5-0.025) 1 Each Tablet, 1 TAB PO Q6H PRN for DIARRHEA, (Reported) Ibuprofen (Ibu-200) 200 Mg Tablet, 400 MG PO Q6H PRN for PAIN, (Reported) GME ATTESTATION GME ATTESTATION My faculty preceptor for this patient encounter was physically present during the encounter and was fully available. All aspects of the patient interview, examination, medical decision making process, and medical care plan development were reviewed and approved by the faculty preceptor. The faculty preceptor is aware and concurs with the plan as stated in the body of this note and will attest to such by his/her cosignature. LUKAS KNIGHT DO October 13, 2018 16:44 Caitlin Cao MD October 16, 2018 07:42
[2018-10-13] MEDS: PANTOPRAZOLE 40MG INJ (PROTONIX) (C9113) IV SCH (20:18)
[2018-10-13 22:00] VITALS: BP 138/80
[2018-10-14] MEDS: DICYCLOMINE 10 MG CAP PO SCH ×4 (00:37→17:37)
[2018-10-14] MEDS: methylPREDNISolone INJ 40 MG/1 ML VIAL (J2920) IV SCH ×4 (00:37→17:37)
[2018-10-14] MEDS: KCL 40MEQ in NS 1000ML 1,000 ML IV SCH ×2 (00:38→08:55)
[2018-10-14 02:00] VITALS: BP 134/74
[2018-10-14] MEDS: IPRATROPIUM 0.5MG/ALBUTEROL 2.5MG INH SOL UD 3ML (DUONEB)(J7620) NEB PRN ×5 (05:52→23:16)
[2018-10-14 06:00] VITALS: BP 124/69
[2018-10-14 07:01] LABS: CALCIUM LEVEL 8.3 MG/DL (8.5-10.1); CREATININE FOR GFR 1.55 MG/DL (0.70-1.30); POTASSIUM SERUM 3.9 MEQ/L (3.5-5.1)
[2018-10-14] MEDS: PINK BISMUTH SUSP 524MG/30ML ORAL SYRINGE PO SCH ×4 (09:47→21:32)
[2018-10-14] MEDS: MESALAMINE 250 MG CR CAP PO SCH ×4 (09:47→21:33)
[2018-10-14] MEDS: LOMOTIL 2.5MG/0.025MG TABLET PO SCH ×4 (09:47→21:33)
[2018-10-14] MEDS: ENOXAPARIN 40 MG/0.4 ML SYRINGE (J1650) SC SCH (09:47)
[2018-10-14] MEDS: POTASSIUM CHLORIDE 10 MEQ SR TABLET PO SCH (09:47)
[2018-10-14] MEDS: MULTIVITAMINS/MINERALS THERAP 1 TAB PO SCH (09:47)
--- NOTE | 2018-10-14 09:57 | REP ---
Chest x-ray: Two views. History: Dyspnea. Comparison chest x-ray: August 17, 2018. Findings: The lungs are symmetrically aerated and clear. The pleural angles are sharp. Heart size is normal. Pulmonary vasculature is not increased. 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 This may be associated with posterior glenohumeral instability. This is unchanged. No acute bony abnormality is seen. Impression: No active cardiopulmonary disease. Electronically Signed by Chuck Rao MD 10/14/2018 09:58 A
[2018-10-14 10:01] LABS: MAGNESIUM LEVEL 2.4 MG/DL (1.8-2.4); PHOSPHORUS LEVEL 2.8 MG/DL (2.5-4.9)
[2018-10-14 10:42] LABS: HEPATITIS B SURFACE ANTIBODY NEGATIVE (POSITIVE); HEPATITIS B SURFACE ANTIGEN NEGATIVE (NEGATIVE)
[2018-10-14 11:52] LABS: ABG HCO3 5.3 MEQ/L (22.0-26.0); ABG O2 SATURATION 97.3 % (95.0-99.0); ABG STANDARD HCO3 10.4 MEQ/L (22.0-26.0); ABG TOTAL CO2 5.7 MEQ/L (22.0-29.0); ABG pH (ARTERIAL) 7.259 UNITS (7.350-7.450)
[2018-10-14 11:56] LABS: ABG PARTIAL PRESSURE CO2 12.2 mmHg (35.0-45.0)
[2018-10-14 11:57] LABS: ABG PARTIAL PRESSURE O2 < 10.0 mmHg (75.0-100.0)
[2018-10-14 12:56] LABS: POTASSIUM RANDOM URINE 12.6 MEQ/L
--- NOTE | 2018-10-14 13:32 | CR ---
DATE OF CONSULTATION: 10/14/2018 REQUESTING PHYSICIAN: Dr. Lexi Mckeon CONSULTING PHYSICIAN: Dr. Hernandez REASON FOR CONSULTATION: Management of electrolyte abnormalities and metabolic acidosis. CHIEF COMPLAINT: The patient presented to the hospital on 10/04/2018 with profuse watery diarrhea. HISTORY OF PRESENT ILLNESS: Mr. Sina Garcia is a 47 year old male with a past medical history of psoriasis and asthma. He presented to the hospital on 10/04/2018 with profuse watery diarrhea starting on 09/16/2018. He was having almost 15-16 bowel movements every day. When patient presented to the hospital, he had lost about 33 pounds of weight. He was admitted to the hospital. He was started on IV fluid hydration. His initial labs on that day showed a creatinine of 0.87 and a normal potassium; however, and during the hospital stay he developed hypokalemia because of profuse diarrhea. The primary team is managing his hypokalemiam, but because of its persistent abnormality in the labs and development of acute renal failure with a creatinine of 1.6 as per labs done yesterday and metabolic acidosis, the nephrology service was called. I saw and evaluated the patient today morning at the bedside. He was getting IV fluid hydration with KCl and normal saline. The patient reports that with the current medications including starting him on IV steroids his diarrhea is getting significantly better. He does report shortness of breath for the last few days. He denies any fevers or chills. PAST MEDICAL HISTORY: Past medical history of psoriasis and asthma only. PAST SURGICAL HISTORY: No significant past surgical history. He recently had esophagogastroduodenoscopy (EGD) and colonoscopy done this month. ALLERGIES: The patient is allergic CODEINE, causes hallucinations and EPINEPHRINE INJECTION which causes supraventricular tachycardia. FAMILY HISTORY: There is positive family history of polycystic kidney disease in an uncle who needed transplant. SOCIAL HISTORY: The patient lives at home with his . He denies any smoking. He denies any illicit drug abuse. He drinks about 3-4 cans of beer a week. REVIEW OF SYSTEMS: Constitutional: He denies any fevers or chills. He does report feeling weak. Eyes: He denies any blurry vision, double vision. ENT: Denies any dysphagia or odynophagia. Cardiovascular: He denies any chest pain or palpitations. Respiratory: He does report some shortness of breath. GI: He reports profuse watery diarrhea since the beginning of this month which is getting better now. Genitourinary: He denies any dysuria or hematuria. Musculoskeletal: He denies any muscle aches and pains. EMERGENCY RESPONSE TECHNICIAN: He denies any strokes or seizures. Skin: He denies any rashes or ulcers. Hematology/Oncology: He denies any bleeding or bruising. Endocrine: He denies any history of hyperthyroidism, hypothyroidism or diabetes. All other review of systems is negative. PHYSICAL EXAMINATION: General: The patient is awake, alert, oriented times three, sitting up in the sofa, in no apparent distress. Vital Signs: Temperature is 97.9 degrees Fahrenheit. Blood pressure 124/69. Pulse is 69. Respiratory rate of 18. Saturating 99% on room air. Head and Neck Exam: Extraocular muscles intact. Pupils equally round and reactive to light. Mucous membranes are moist. Neck is supple. There is no jugular venous distention (JVD). Cardiovascular: S1 and S2, regular rate. No edema of the bilateral lower extremities. Respiratory: Chest is clear to auscultation bilaterally. Bilateral equal air entry. No rales or rhonchi. Abdomen: Soft. Positive bowel sounds. Nontender. No organomegaly. Musculoskeletal: No clubbing or cyanosis. Pulses are 2+. EMERGENCY RESPONSE TECHNICIAN: No focal deficit. Power is 5/5 in all extremities. Skin: No rashes or ulcers. LAB REVIEW: CBC showed a WBC of 9.4, hemoglobin 15.8, platelets 298. Urinalysis was done on admission which showed 1+ protein, no blood, large amount of mucus. BMP done today morning showed sodium 137, potassium 3.9, chloride 116, bicarb is 10, BUN 26, creatinine is 1.55, glucose 117, calcium is 8.3, phosphorus 2.8, and magnesium is 2.4. Tissue transglutaminase antibody IgA is less than 2. IgA is 256. Stool CMV is pending. Hepatitis B is negative. Hepatitis C is negative. HIV antibody is negative. Microbiology cultures are negative so far. GI panel was negative. IMAGING STUDIES: HIDA scan was done which showed delayed gallbladder visualization suggesting stasis and pathology. There were multiple pathology specimens from duodenum, terminal ileum, colon that were sent and colon ulcer biopsy showed fragments of inflamed and ulcerated colonic mucosa with expansion of lamina propria by acute and chronic inflammation, scattered cryptitis and crypt abscesses. CURRENT INPATIENT MEDICATIONS: - KCl 40 mEq in normal saline at 125 mL/hr - Flagyl 500 mg IV every 8 hours, which was stopped yesterday - Tylenol as needed - DuoNeb nebulizations - Pepto-Bismol 30 mL by mouth four times a day - calcium carbonate 100 mg by mouth as needed for heartburn - cholestyramine, which has been stopped - dicyclomine 20 mg by mouth every 6 hours, which is ongoing - Lomotil 2 tablets four times a day - Lovenox 40 mg subcu daily - mesalamine 1000 mg four times a day - Solu-Medrol 40 mg IV every 6 hours - multivitamin 1 tablet by mouth daily - Protonix 40 mg IV every 24 hours - potassium chloride 40 mEq by mouth daily ASSESSMENT: 47-year-old male with profuse watery diarrhea since the beginning of the month who has developed acute renal failure, non anion gap metabolic acidosis and hypokalemia. PLAN: 1. Acute renal failure. It is most likely secondary to dehydration and volume depletion. I do not believe it is associated with use of mesalamine because it just started yesterday. It is okay to continue current dose of mesalamine. I have changed the IV fluid as mentioned below because of hypokalemia and metabolic acidosis. Continue to monitor intake and output. 2. Hypokalemia. It is secondary to persistent profuse diarrhea. Potassium level is improving with oral and IV potassium. I have added 40 mEq of potassium to the IV fluids and he is also getting 40 mEq potassium by mouth daily. Improvement of diarrhea would help improve his hypokalemia as well. 3. Non anion gap metabolic acidosis. It is secondary to a combination of persistent diarrhea and acute renal failure. I have ordered urine electrolytes to look for etiology, but the most likely etiology is going to be diarrhea and loss of bicarbonate. Because of ongoing diarrhea, I have started the patient on bicarb containing fluid D5W with 100 mEq, bicarb along with 40 mEq of KCl at 125 mL/hr. No need of oral bicarbonate at this point. 4. Profuse watery diarrhea. Biopsy specimen came back with acute on chronic inflammation and cryptitis, possible Crohn disease. He has been started on steroids and mesalamine. His symptoms are significantly better. The rest of the management is as per primary team and GI recommendations. IV antibiotics have been stopped now. Thank you for involving me in the care of this patient. I shall be happy to follow the patient along with you tomorrow morning.
[2018-10-14 14:00] VITALS: BP 138/85
[2018-10-14] MEDS: SODIUM BICARBONATE 100 MEQ, POTASSIUM CHLORIDE INJ 40 MEQ in D5W 1,000 ML IV SCH ×2 (14:20→22:25)
--- NOTE | 2018-10-14 15:42 | IPNPDOC ---
Subjective Date Seen The patient was seen on 10/14/18. Subjective Chief Complaint/HPI Patient seen and examined at bedside. He reports that the frequency of his diarrhea is improving. He also notes resolution of his abdominal cramping. Denies any nausea or vomiting. Objective Physical Examination General Exam: Positive: Alert, Cooperative, No Acute Distress ENT Exam: Positive: Atraumatic, Mucous membr. moist/pink Neck Exam: Negative: JVD Chest Exam: Positive: Clear to auscultation, Normal air movement Heart Exam: Positive: Rate Normal, Normal S1, Normal S2 Abdomen Exam: Positive: Soft; Negative: Tenderness Extremity Exam: Negative: Tenderness, Swelling Psych Exam: Positive: Oriented x 3 Assessment /Plan Plan/VTE VTE Prophylaxis Ordered?: Yes Plan Persistent diarrhea likely 2/[address] abdomen with evidence of inflammation in mesentery and SB loops, suspicious for Crohn's disease. s/p EGD/Colonoscopy 10/08--- biopsies notable for diffuse acute and chronic inflammation likely due to inflammatory process. GI on board, input appreciated Infectious disease consulted to rule out infectious etiology Continue Mesalamine, Lomotil, IV Steroids, Bentyl, Pepto Bismol Patient reports that his diarrhea has improved, and he notes having only 3 loose bowel movements over the last 12 hours. He stated that he was having up to 15 episodes a day in the past. Patient also notes improvement of abdominal cramping, and improvement of appetite. We will continue to monitor the patient's clinical course Non-anion gap metabolic acidosis Likely secondary to profuse diarrhea, and underlying renal failure. The patient has been started on a bicarbonate drip. Nephrology is on consultation We will continue to monitor the patient. Acute kidney injury/failure Likely secondary to profuse diarrhea Continue IV fluid hydration Nephrology on board Psoriasis c/w f/u and medications post discharge. Asthma, stable Nebs PRN for SOB. DVT prophylaxis Lovenox subcutaneous VS, I&O, 24H, Fishbone Vital Signs/I&O Vital Signs Date Time Temp Pulse Resp B/P (MAP) Pulse Ox O2 Delivery O2 Flow Rate FiO2 10/14/18 14:00 97.0 82 18 138/85 (102) 98 I&O- Last 24 Hours up to 6 AM 10/14/18 06:00 Intake Total 4240 ml Output Total 2800 ml Balance 1440 ml Laboratory Data 24H LABS Laboratory Tests 2 10/13/18 17:08: HIV Antigen/Antibody Combo Qual NEGATIVE 10/14/18 05:58: Hepatitis B Surface Antigen NEGATIVE, Hepatitis B Surface Antibody NEGATIVE, Hepatitis C Antibody Index 0.0 10/14/18 05:59: Anion Gap 11, Glomerular Filtration Rate 51.0L, Blood Urea Nitrogen 26H, Cre atinine 1.55H, Sodium Level 137, Potassium Level 3.9#, Chloride Level 116H, Carbon Dioxide Level 10L, Calcium Level 8.3L, Phosphorus Level 2.8, Magnesium Level 2.4 10/14/18 11:36: Blood Gas Bicarbonate Standard 10.4L, Arterial Blood pH 7.259L, Arterial Blood Partial Pressure CO2 12.2*L, Arterial Blood Partial Pressure O2 < 10.0*L, Arterial Blood Total CO2 5.7L, Arterial Blood HCO3 5.3L, Arterial Blood Base Excess -19.0L, Arterial Blood Oxygen Saturation 97.3 10/14/18 12:12: Urine Random Creatinine 118.0, Urine Random Sodium 12, Urine Random Potassium 1 2.6, Urine Random Chloride 104 CBC/BMP Laboratory Tests 10/14/18 05:59 Calcium Level 8.3 L Microbiology Microbiology 10/04/18 Gastrointestinal Tract Panel (PCR) - Final, Complete 10/14/18 Special Micro Test, Received Pending 10/08/18 Gram Stain - Final, Complete 10/08/18 Body Fluid Culture - Final, Complete 10/08/18 Acid Fast Stain, Received Pending 10/08/18 Mycobacterial Culture, Received Pending 10/08/18 Acid Fast Stain, Received Pending 10/08/18 Mycobacterial Culture, Received Pending 10/08/18 Gram Stain - Final, Complete 10/08/18 Body Fluid Culture - Final, Complete GIOVANNA RASHEED MD October 14, 2018 15:42
[2018-10-14] MEDS: CEPACOL LOZENGE PO PRN ×3 (18:57→22:21)
[2018-10-14] MEDS: PANTOPRAZOLE 40MG INJ (PROTONIX) (C9113) IV SCH (21:32)
[2018-10-14 22:00] VITALS: BP 132/64
[2018-10-14] MEDS: ACETAMINOPHEN TAB 650MG DOSE (2X325MG) PO PRN (22:23)
[2018-10-15] VITALS (18 sets, daily range): BP systolic 95–146; BP diastolic 59–86
[2018-10-15] MEDS: methylPREDNISolone INJ 40 MG/1 ML VIAL (J2920) IV SCH ×2 (00:57→05:39)
[2018-10-15] MEDS: DICYCLOMINE 10 MG CAP PO SCH ×5 (00:57→23:48)
[2018-10-15] MEDS: IPRATROPIUM 0.5MG/ALBUTEROL 2.5MG INH SOL UD 3ML (DUONEB)(J7620) NEB PRN ×4 (02:35→16:25)
[2018-10-15] MEDS: ACETAMINOPHEN TAB 650MG DOSE (2X325MG) PO PRN (03:08)
[2018-10-15] MEDS: SODIUM BICARBONATE 100 MEQ, POTASSIUM CHLORIDE INJ 40 MEQ in D5W 1,000 ML IV SCH ×2 (05:39→17:29)
[2018-10-15] MEDS ORDERED: ACETAMINOPH W/CODEINE #3 TAB UD PO ONE (05:45)
[2018-10-15 06:13] LABS: ABG BASE EXCESS -13.9 (-2.0-2.0); ABG O2 SATURATION 93.6 % (95.0-99.0); ABG PARTIAL PRESSURE CO2 20.9 mmHg (35.0-45.0); ABG PARTIAL PRESSURE O2 66.3 mmHg (75.0-100.0); ABG STANDARD HCO3 14.1 MEQ/L (22.0-26.0); ABG TOTAL CO2 10.6 MEQ/L (22.0-29.0); ABG pH (ARTERIAL) 7.297 UNITS (7.350-7.450)
[2018-10-15 07:03] LABS: CALCIUM LEVEL 8.9 MG/DL (8.5-10.1); CREATININE FOR GFR 1.46 MG/DL (0.70-1.30); GLOMERULAR FILTRATION RATE 54.6 (>60); POTASSIUM SERUM 3.7 MEQ/L (3.5-5.1)
[2018-10-15 08:06] LABS: CALPROTECTIN STOOL <16 ug/g (0-120); FATS NEUTRAL Normal (.); FATS TOTAL Normal (.)
[2018-10-15] MEDS: MULTIVITAMINS/MINERALS THERAP 1 TAB PO SCH (08:07)
[2018-10-15] MEDS: PINK BISMUTH SUSP 524MG/30ML ORAL SYRINGE PO SCH ×4 (08:07→21:11)
[2018-10-15] MEDS: ENOXAPARIN 40 MG/0.4 ML SYRINGE (J1650) SC SCH (08:07)
[2018-10-15] MEDS: POTASSIUM CHLORIDE 10 MEQ SR TABLET PO SCH (08:08)
[2018-10-15] MEDS: MESALAMINE 250 MG CR CAP PO SCH ×4 (08:08→22:33)
[2018-10-15] MEDS: LOMOTIL 2.5MG/0.025MG TABLET PO SCH ×4 (08:08→21:11)
[2018-10-15 08:12] LABS: HEMATOCRIT 47.1 % (42.0-52.0); HEMOGLOBIN 16.5 g/dl (13.5-17.5); MEAN CORPUSCULAR VOLUME 85.6 fl (80.0-96.0); PLATELET COUNT, AUTOMATED 351 10^3/uL (150-450); WHITE BLOOD COUNT 20.7 10^3/uL (4.0-10.0)
[2018-10-15] MEDS ORDERED: SODIUM BICARBONATE 8.4% INJ 50 ML SYRINGE IV STA (09:07)
[2018-10-15] MEDS: methylPREDNISolone INJ 125 MG/2 ML VIAL (J2930) IV SCH ×3 (09:19→21:11)
[2018-10-15] MEDS: MORPHINE 4 MG/ML 1ML VIAL/SYRINGE (J2270) IV PRN ×6 (09:19→23:54)
[2018-10-15 09:53] LABS: MAGNESIUM LEVEL 2.3 MG/DL (1.8-2.4)
--- NOTE | 2018-10-15 10:17 | CCN ---
DATE OF SERVICE: 10/15/2018 Critical care time in 54 minutes, this excludes all procedures. HISTORY OF PRESENT ILLNESS: 47-year-old male with extensive diarrhea, bicarbonate loss thought to be secondary to diarrheal illness, recent endoscopy suggesting the likelihood of Crohn's disease. He is on steroids as of the . He has had progressive shortness of breath over the past 24 hours. He was started on bicarbonate drip. He is tachypneic, pCO2 is at 21 with a pH of 7.30, PaO2 of 66. Upon my arrival to the room he is able to speak in full sentences, but does appear to be tachypneic. He is complaining of a band-like feeling around his lower ribs and into his back. He states this is fairly significant pain. He thinks he could breathe better if he did not have this discomfort. He has been getting DVT prophylaxis in the form of Lovenox. The patient continues to have loose bowel movements but denies any blood in his stool. He denies any significant abdominal pain. He had no eye pain. He did notice his symptoms of his diarrhea became worse after he stopped his Enbrel for his psoriasis. Temperature is 97.7, pulse is 110, respiratory rate is 41, blood pressure is 130/73 with a mean arterial pressure 92, oxygen saturations 92% on 2 liters. INTAKE AND OUTPUT: 6070 in, 2225 out, net positive 3845. GENERAL: Awake, alert, tachypneic, able to speak full sentences. He has audible mucous gurgling. HEENT: Sclerae clear and anicteric. Pupils are small, approximately 3-4 mm, but reactive to light. Sclera is clear. He has no light sensitivity. Mucous membranes are moist. I do not see any aphthous ulcers. Mallampati 4. Tongue is midline. Dentition in good repair. NECK: Neck is supple. No tracheal deviation or mass. LYMPH: No cervical, supraclavicular, or axillary adenopathy. CARDIAC: Regular, tachycardic, S1-S2 without murmur, rub or gallop. No elevated JVP. No significant peripheral edema. PULMONARY: Diffuse rhonchi without audible wheeze. There is no rales. ABDOMEN: Soft, nontender, nondistended. No hepatosplenomegaly. No masses or hernia. There is no flank pain to percussion. No CVA tenderness. EXTREMITIES: No cyanosis, clubbing or edema. SKIN: Is pale without rash, jaundice or bruising. MUSCULOSKELETAL/NEURO: Normal muscle tone. No myoclonus. No evidence of seizure activity. No tremor. No unilateral weakness. Muscle strength is symmetric bilaterally. No joint effusions. Laboratory evaluation shows a leukocytosis of 20.7, hemoglobin of 16.5 with a platelet count of 351. Sodium is 133, potassium 3.7, chloride 110, bicarb of 11, BUN of 26, creatinine of 1.46. Arterial blood gas showing a pH 7.30, pCO2 of 21, pAO2 of 66. Chest x-ray from yesterday shows clear costophrenic angles, no significant infiltrate. PROBLEM LIST: 1. Dyspnea with tachypnea. High risk for requiring intubation given the severity of his metabolic acidosis. He will therefore be watched in the intensive care unit. 2. Hyponatremia. New, likely from fluid administration. Dyspnea may also be secondary to volume overload. Will need to carefully monitor oxygen saturations. Because of his hyponatremia and his bicarbonate loss, I have given him an amp of bicarb at bedside. 3. Leukocytosis likely induced by steroids; however, one cannot rule out the possibility of respiratory infection, especially given his cough. Will consider repeat imaging versus starting empiric antibiotics if there is any signs of progression. 4. Hypoxia, likely secondary to decreased chest expansion and rapid shallow breathing, currently on 2 liters. He will be monitored closely, especially in the face of receiving narcotics for his pain in the ICU. He understands he is at risk for intubation, mechanical ventilation. 5. Severe diarrhea likely from Crohn's disease, on Solu-Medrol. It did appear that when he was on his Enbrel for his psoriasis his symptoms were more controlled. He may require more immunosuppression. He should remain on Pentasa as long as he is able to swallow. Will continue to monitor for signs and symptoms of infection. Will monitor his output to ensure adequate fluid replacement. The largest problem is his bicarbonate loss, which is causing tachypnea and metabolic derangement. The patient's critical care time is as mentioned above, this excludes all procedures. The patient remains critically ill and needs to be monitored closely in the ICU for respiratory failure.
[2018-10-15] MEDS: BICITRA 30ML SOLN UDC PO SCH ×3 (10:56→21:11)
--- NOTE | 2018-10-15 11:55 | REP ---
Portable chest x-ray: Single AP view. History: Hypoxia. Comparison chest x-ray: October 14, 2018. Findings: Today's AP semi-erect portable chest x-ray is obtained at a lesser level of inspiration. The patient is rotated somewhat to the left. There is an infiltrate which is fairly large and dense in the left lower lobe. This was not apparent on the previous day's film. Heart is not enlarged. Impression: Fairly large new infiltrate left lower lobe. Electronically Signed by Chuck Rao MD 10/15/2018 02:37 P
[2018-10-15] MEDS ORDERED: cefTRIAXone SOD 1 GM in D5W MINI-BAG PLUS 50 ML IV SCH (13:00)
[2018-10-15 14:44] LABS: ABG BASE EXCESS -10.5 (-2.0-2.0); ABG HCO3 11.9 MEQ/L (22.0-26.0); ABG O2 SATURATION 88.3 % (95.0-99.0); ABG PARTIAL PRESSURE CO2 20.5 mmHg (35.0-45.0); ABG PARTIAL PRESSURE O2 51.2 mmHg (75.0-100.0); ABG STANDARD HCO3 16.2 MEQ/L (22.0-26.0); ABG TOTAL CO2 12.5 MEQ/L (22.0-29.0)
[2018-10-15 15:09] LABS: CALCIUM LEVEL 8.6 MG/DL (8.5-10.1); CREATININE FOR GFR 1.49 MG/DL (0.70-1.30); GLOMERULAR FILTRATION RATE 53.4 (>60)
--- NOTE | 2018-10-15 15:58 | IPNPDOC ---
Subjective Date Seen The patient was seen on 10/15/18. Subjective Chief Complaint/HPI Patient seen and examined at the bedside. He complains of pain in his ribs bilaterally from increased work of breathing. An ABG revealed overall improvement of his metabolic acidosis. However, the patient was transferred to the intensive care unit for further monitoring of his airway. A follow-up chest x-ray did reveal a large left-sided infiltrate. He has been started on the appropriate antibiotic therapy. Objective Physical Examination General Exam: Positive: Alert, Cooperative, Other (Mild to Moderate respiratory distress 2/2 PNA) ENT Exam: Positive: Atraumatic, Mucous membr. moist/pink Neck Exam: Negative: JVD Chest Exam: Positive: Diminished, Other (tachypneic) Heart Exam: Positive: Rate Normal, Normal S1, Normal S2 Abdomen Exam: Positive: Soft; Negative: Tenderness Extremity Exam: Negative: Tenderness, Swelling Psych Exam: Positive: Oriented x 3 Assessment /Plan Plan/VTE VTE Prophylaxis Ordered?: Yes Plan Non-anion gap metabolic acidosis with Respiratory Alkalosis Patient noted to have increased work of breathing this morning/tachypnea with some pain in the accessory muscles of respiration, despite his ABG showing improvement of underlying metabolic acidosis. Chest x-ray revealed a left-sided infiltrate, and the patient has been started on Rocephin The patient has been transferred to the ICU, and pulmonary has been consulted. Their input has been appreciated. Follow-up ABGs reveal continued improvement. Cont Bicarb gtt as per Nephro We will continue to closely monitor the patient in the intensive care unit, as he is a high risk for intubation. Persistent diarrhea likely 2/[address] abdomen with evidence of inflammation in mesentery and SB loops, suspicious for Crohn's disease. s/p EGD/Colonoscopy 10/08--- biopsies notable for diffuse acute and chronic inflammation likely due to inflammatory process. GI on board, input appreciated Infectious disease consulted to rule out infectious etiology Continue Mesalamine, Lomotil, IV Steroids, Bentyl, Pepto Bismol Patient reports that his diarrhea has improved on a day-to-day basis We will continue to monitor the patient's clinical course Acute kidney injury/failure Likely secondary to profuse diarrhea Continue IV fluid hydration Nephrology on board Psoriasis c/w f/u and medications post discharge. Asthma, stable Nebs PRN for SOB. DVT prophylaxis Lovenox subcutaneous VS, I&O, 24H, [facility] Vital Signs/I&O Vital Signs Date Time Temp Pulse Resp B/P (MAP) Pulse Ox O2 Delivery O2 Flow Rate FiO2 10/15/18 14:00 117 38 139/70 (93) 91 25.0 30 10/15/18 12:00 97.8 I&O- Last 24 Hours up to 6 AM0 10/15/18 06:00 Intake Total 5870 ml Output Total 3325 ml Balance 2545 ml Laboratory Data 24H LABS Laboratory Tests 2 10/15/18 05:33: Blood Gas Bicarbonate Standard 14.1L, Arterial Blood pH 7.297L, Arterial Blood Partial Pressure CO2 20.9L, Arterial Blood Partial Pressure O2 66.3L, Arterial Blood Total CO2 10.6L, Arterial Blood HCO3 10.0L, Arterial Blood Base Excess - 13.9L, Arterial Blood Oxygen Saturation 93.6L 10/15/18 06:05: Nucleated Red Blood Cells % (auto) 0.0 10/15/18 06:07: Anion Gap 12, Glomerular Filtration Rate 54.6L, Blood Urea Nitrogen 26H, Creatinine 1.46H, Sodium Level 133L, Potassium Level 3.7, Chloride Level 110H, Carbon Dioxide Level 11L, Calcium Level 8.9, Magnesium Level 2.3 10/15/18 14:28: Blood Gas Bicarbonate Standard 16.2L, Arterial Blood pH 7.380, Arterial Blood Partial Pressure CO2 20.5L, Arterial Blood Partial Pressure O2 51.2L, Arterial Blood Total CO2 12.5L, Arterial Blood HCO3 11.9L, Arterial Blood Base Excess -10.5L, Arterial Blood Oxygen Saturation 88.3L 10/15/18 14:33: Anion Gap 10, Glomerular Filtration Rate 53.4L, Blood Urea Nitrogen 27H, Creatinine 1.49H, Sodium Level 133L, Potassium Level 4.0, Chloride Level 109H, Carbon Dioxide Level 14L, Calcium Level 8.6 CBC/BMP Laboratory Tests 10/15/18 06:05 Red Blood Count 5.50, Mean Corpuscular Volume 85.6, Mean Corpuscular Hemoglobin 30.0, Mean Corpuscular Hemoglobin Concent 35.0, Red Cell Distribution Width 14.0 10/15/18 06:07 Calcium Level 8.9 10/15/18 14:33 Calcium Level 8.6 Microbiology Microbiology 10/14/18 Special Micro Test, Received Pending 10/08/18 Gram Stain - Final, Complete 10/08/18 Body Fluid Culture - Final, Complete 10/08/18 Acid Fast Stain, Received Pending 10/08/18 Mycobacterial Culture, Received Pending 10/08/18 Acid Fast Stain, Received Pending 10/08/18 Mycobacterial Culture, Received Pending 10/08/18 Gram Stain - Final, Complete 10/08/18 Body Fluid Culture - Final, Complete GIOVANNA RASHEED MD October 15, 2018 15:58
[2018-10-15] MEDS ORDERED: metroNIDAZOLE 500 MG in APPROPRIATE DILUENT 1 EA IV SCH (17:00)
[2018-10-15] MEDS: LACTOBACILLUS ACIDOPHILUS CAP (BACID) PO SCH ×2 (18:34→21:12)
--- NOTE | 2018-10-15 18:37 | IPN ---
DATE: 10/15/2018 Sina was transferred to the ICU due to metabolic acidosis from severe diarrhea. He also has developed pneumonia and was started on IV Rocephin. He has a cough mostly productive of whitish phlegm. No fever or chills. He was started on IV Solu-Medrol 100 mg every 6 hours, Lomotil 2 tablets of four times a day, mesalamine 1000 mg by mouth four times a day. His number of diarrhea have improved but it is still watery. LABORATORY DATA White count 20.4 after steroids, hemoglobin 16.5, hematocrit 47.1, platelets 351. Sodium 133, potassium 4, chloride 109, bicarb 14, BUN 27, creatinine 1.49, glucose 129, calcium 8.6, bicarbonate had dropped down to 9. AFB smear and culture are pending. O and P three sets were sent out to rule out [facility] and they all have been negative for Cryptosporidium, Cyclospora or microsporidian using wet preparation. GI panel twice was negative. A stool culture was sent also to be done at [facility]. IMPRESSION 1. Severe watery diarrhea with secondary metabolic acidosis and acute kidney injury, felt to be related to uncontrolled Crohn disease. The patient is on mesalamine, IV steroids and Lomotil. No evidence of infectious etiology. 2. Hypoxia, possibly related to pneumonia. The patient is on IV Rocephin and metronidazole. 3. Leukocytosis worsened by steroids. PLAN Continue IV Rocephin and IV Flagyl. Flagyl also to cover for possibility of Crohn disease. Case has been discussed at length with Dr. Frank.
[2018-10-15] MEDS: IPRATROPIUM 0.5MG/ALBUTEROL 2.5MG INH SOL UD 3ML (DUONEB)(J7620) NEB SCH (18:50)
[2018-10-15] MEDS ORDERED: IPRATROPIUM 0.5MG/ALBUTEROL 2.5MG INH SOL UD 3ML (DUONEB)(J7620) NEB PRN (19:30)
--- NOTE | 2018-10-15 20:50 | IPN ---
DATE: 10/15/2018 SUBJECTIVE The patient was seen and examined at the bedside today morning in the ICU. Last 24-hour events were noted. The patient became tachypneic and hypoxemic in the morning because of severe metabolic acidosis. He was trying to compensate with respiratory alkalosis. The patient was transferred to ICU. He was placed on high-flow nasal cannula. Pulmonary service was also involved. The patient required a dose of 1 ampule of sodium bicarbonate IV. He was still slightly tachypneic when I saw him in the morning. His bicarb level is slightly better today as compared with yesterday. Renal function is stable. Creatinine has been fluctuating at around 1.4 at this point. The patient reports that his diarrhea is getting better today as compared with yesterday. His steroid dose was increased when he came to ICU. OBJECTIVE Vital signs: Temperature is 97.7 degrees Fahrenheit. Blood pressure 130/73, pulse is 110, respiratory rate of 41, saturating 92% on nasal cannula. Intake and output: Urine output recorded is 2.2 liters yesterday. He had five bowel movements yesterday and urine output so far today since overnight is 700 mL. Weight in the bed scale is 110.6 kg. PHYSICAL EXAMINATION General: The patient is awake, alert, oriented times three. Moderate respiratory distress, tachypneic. Laying in the bed wearing nasal cannula. Head and neck examination: Extraocular muscles intact. Pupils equally round and reactive to light. Mucous membranes are moist. Neck is supple. There is no JVD. Cardiovascular: S1, S2, tachycardia. No edema of the bilateral lower extremities. Respiratory: Mildly decreased breath sounds at the bases. The patient is tachypneic and poor inspiratory effort. Mild inspiratory crackles at the bases, more pronounced at the left side. Abdomen: Soft, obese, positive bowel sounds. Nontender. No organomegaly. Musculoskeletal: No clubbing or cyanosis. Pulses are 2+. 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 Power is 5/5 in all extremities. Skin: No rashes or ulcers. LAB REVIEW: CBC showed a WBC of 20.7, hemoglobin is 16.5, platelets are 351. Random urine report showed random creatinine of 118. Random sodium of 12. Random potassium 12.6 and chloride is 104. Urine anion gap is -79. ABG done today morning showed a pH of 7.29, pCO2 of 20, pO2 of 66, bicarb of 10, oxygen sat is 93%. BMP today morning showed sodium 133, potassium 3.7, chloride 110, bicarb is 11, BUN 26, creatinine is 1.46, calcium 8.9, magnesium 2.3. IMAGING STUDIES Chest x-ray was done today morning, which showed the patient was rotated somewhat to the left, large infiltrate in the left lower lobe. CURRENT INPATIENT MEDICATIONS: The patient's medications were all reviewed by me. He was initially given Rocephin in the morning, however, his antibiotics have been changed to Flagyl 500 mg IV every 8 hourly and Zosyn 3.375 grams IV every 8 hourly. He was on sodium bicarbonate with potassium at 125 mL an hour. I have changed his bicarb drip 150 bicarb and D5W at 75 mL an hour. He is taking nebulizations every 2 hourly as needed. I have started him on Bicitra 30 mL by mouth three times a day. He continues to be on mesalamine 1 gram by mouth four times a day. His Solu-Medrol dose has been increased to 100 mg IV every 6 hourly. He continues to be on potassium chloride 40 mEq p.o. daily. ASSESSMENT/PLAN 1. Acute renal failure. It is multifactorial. Initially it was secondary to dehydration and volume depletion. Renal function is stable. Creatinine has been fluctuating at around 1.4 now. Continue the IV fluid, however, I have decreased the IV fluid rate to 75 mL an hour. Continue to monitor intake and output. It is okay to continue mesalamine at this point. 2. Normal anion gap metabolic acidosis with respiratory alkalosis. It is secondary to severe diarrhea. Urine anion gap is -79, which confirms the etiology of acidosis secondary to diarrhea. Given the patient's shortness of breath and tachypnea I am decreasing the IV fluid rate to 75 mL an hour. However I have changed the IV fluid bicarbonate concentration to 150 mEq of bicarb in D5W. I have also started the patient on Bicitra 30 mL by mouth three times a day to help with the acidosis. The patient's diarrhea episodes are improving with higher dose of steroids now. 3. Hypokalemia. The patient's potassium level has improved to 3.7 now. I have stopped the IV potassium and the bicarbonate fluids. However, he continues to be on potassium chloride 40 mEq by mouth daily. Potassium level is improving with improvement in the acid base status and profuse watery diarrhea. 4. Hyponatremia. It is secondary to IV fluid hydration with D5W containing 100 mEq, bicarb. I have changed IV fluids to isotonic bicarb fluids. Sodium level is expected to improve after that. 5. Hypoxemia. Most likely secondary to combination of atelectasis, shallow breathing, left-sided infiltrate. The patient has been started on IV Zosyn. Since patient is already on Zosyn I am going to stop the Flagyl because Zosyn covers the anaerobes. 6. Severe diarrhea. The patient is currently being treated as Crohn's disease. His IV steroids has been increased. He is also on mesalamine 1 gram by mouth four times a day. The rest of the management is as per primary team and GI recommendations. Total critical care time spent in the management of this patient today morning in the ICU is 50 minutes.
[2018-10-15] MEDS: SODIUM BICARBONATE 150 MEQ in D5W 1,000 ML IV SCH (21:00)
[2018-10-15] MEDS: PIPERACILLIN/TAZOBACTAM SOD 3.375 GM in D5W MINI-BAG PLUS 50 ML IV SCH (21:08)
[2018-10-15] MEDS: PANTOPRAZOLE 40MG INJ (PROTONIX) (C9113) IV SCH (21:11)
[2018-10-16] VITALS (21 sets, daily range): BP systolic 96–132; BP diastolic 53–74
[2018-10-16] MEDS: PIPERACILLIN/TAZOBACTAM SOD 3.375 GM in D5W MINI-BAG PLUS 50 ML IV SCH ×3 (04:21→19:58)
[2018-10-16] MEDS: MORPHINE 4 MG/ML 1ML VIAL/SYRINGE (J2270) IV PRN (04:22)
[2018-10-16] MEDS: methylPREDNISolone INJ 125 MG/2 ML VIAL (J2930) IV SCH ×4 (04:22→21:11)
[2018-10-16 05:18] LABS: C REACTIVE PROTEIN QUANTITATIV 16.6 MG/DL (0.00-0.30); CALCIUM LEVEL 8.3 MG/DL (8.5-10.1); CREATININE FOR GFR 1.59 MG/DL (0.70-1.30); GLOMERULAR FILTRATION RATE 49.5 (>60); POTASSIUM SERUM 3.8 MEQ/L (3.5-5.1)
[2018-10-16] MEDS: DICYCLOMINE 10 MG CAP PO SCH ×3 (05:54→18:13)
[2018-10-16 07:15] LABS: HEMATOCRIT 39.5 % (42.0-52.0); MEAN CORPUSCULAR HEMOGLOBIN 29.9 pg (27.0-33.0); MEAN CORPUSCULAR HGB CONC 35.4 g/dl (32.0-36.5); MEAN CORPUSCULAR VOLUME 84.4 fl (80.0-96.0); RED BLOOD COUNT 4.68 10^6/uL (4.30-6.10); WHITE BLOOD COUNT 18.7 10^3/uL (4.0-10.0)
[2018-10-16] MEDS: IPRATROPIUM 0.5MG/ALBUTEROL 2.5MG INH SOL UD 3ML (DUONEB)(J7620) NEB SCH ×4 (07:41→19:41)
--- NOTE | 2018-10-16 08:07 | REP ---
Portable chest x-ray: Sitting AP view. History: Bronchitis. Comparison study: October 15, 2018. Findings: Left lower lobe infiltrate persists. There is increased consolidation in this. Left hemidiaphragm is obscured today as is the left lateral border of the descending thoracic aorta. Today's views exposed at a lesser level of inspiration however. Pleural angles are sharp. No new infiltrate is seen Electronically Signed by Chuck Rao MD 10/16/2018 07:58 A
[2018-10-16 08:14] LABS: PLATELET COUNT, AUTOMATED 244 10^3/uL (150-450)
[2018-10-16] MEDS: MESALAMINE 250 MG CR CAP PO SCH ×5 (09:00→21:12)
[2018-10-16] MEDS: BICITRA 30ML SOLN UDC PO SCH ×3 (09:25→21:32)
[2018-10-16] MEDS: PINK BISMUTH SUSP 524MG/30ML ORAL SYRINGE PO SCH ×4 (09:25→21:11)
[2018-10-16] MEDS: LACTOBACILLUS ACIDOPHILUS CAP (BACID) PO SCH ×3 (09:26→21:12)
[2018-10-16] MEDS: ENOXAPARIN 40 MG/0.4 ML SYRINGE (J1650) SC SCH (09:26)
[2018-10-16] MEDS: MULTIVITAMINS/MINERALS THERAP 1 TAB PO SCH (09:26)
[2018-10-16] MEDS: LOMOTIL 2.5MG/0.025MG TABLET PO SCH ×4 (09:26→21:12)
[2018-10-16] MEDS: POTASSIUM CHLORIDE 10 MEQ SR TABLET PO SCH (09:26)
--- NOTE | 2018-10-16 10:53 | IPNPDOC ---
Subjective Date Seen The patient was seen on 10/16/18. Subjective Chief Complaint/HPI Patient seen and examined at the bedside. Reports that his respiratory status is somewhat improved this morning. He notes that his pain is also better today. He remains in the intensive care unit on supplemental oxygen therapy. Objective Physical Examination General Exam: Positive: Alert, Cooperative, No Acute Distress ENT Exam: Positive: Atraumatic, Mucous membr. moist/pink Neck Exam: Negative: JVD Chest Exam: Positive: Diminished Heart Exam: Positive: Rate Normal, Normal S1, Normal S2 Abdomen Exam: Positive: Soft; Negative: Tenderness Extremity Exam: Negative: Tenderness, Swelling Psych Exam: Positive: Oriented x 3 Assessment /Plan Plan/VTE VTE Prophylaxis Ordered?: Yes Plan Non-anion gap metabolic acidosis with Respiratory Alkalosis Follow-up ABGs reveal continued improvement. Cont Bicarb gtt as per Nephro We will continue to closely monitor the patient in the intensive care unit Pneumonia CXR notable for left sided infiltrate On Zosyn We will cont to downtitrate supplemental oxygen as tolerated Pulmonary on board Persistent diarrhea likely 2/[address] abdomen with evidence of inflammation in mesentery and SB loops, suspicious for Crohn's disease. s/p EGD/Colonoscopy 10/08--- biopsies notable for diffuse acute and chronic inflammation likely due to inflammatory process. GI on board, input appreciated Infectious disease consulted to rule out infectious etiology Continue Mesalamine, Lomotil, IV Steroids, Bentyl, Pepto Bismol Patient reports that his diarrhea has improved on a day-to-day basis We will continue to monitor the patient's clinical course Acute kidney injury/failure Likely secondary to profuse diarrhea Continue IV fluid hydration Nephrology on board Psoriasis c/w f/u and medications post discharge. Asthma, stable Nebs PRN for SOB. DVT prophylaxis Lovenox subcutaneous VS, I&O, 24H, Fishbone Vital Signs/I&O Vital Signs Date Time Temp Pulse Resp B/P (MAP) Pulse Ox O2 Delivery O2 Flow Rate FiO2 10/16/18 10:00 96 26 132/74 (93) 92 30.0 35 10/16/18 08:00 98.0 I&O- Last 24 Hours up to 6 AM 10/16/18 05:59 Intake Total 3030 ml Output Total 975 ml Balance 2055 ml Laboratory Data 24H LABS Laboratory Tests 2 10/15/18 14:28: Blood Gas Bicarbonate Standard 16.2L, Arterial Blood pH 7.380, Arterial Blood Partial Pressure CO2 20.5L, Arterial Blood Partial Pressure O2 51.2L, Arterial Blood Total CO2 12.5L, Arterial Blood HCO3 11.9L, Arterial Blood Base Excess - 10.5L, Arterial Blood Oxygen Saturation 88.3L 10/15/18 14:33: Anion Gap 10, Glomerular Filtration Rate 53.4L, Blood Urea Nitrogen 27H, Creatinine 1.49H, Sodium Level 133L, Potassium Level 4.0, Chloride Level 109H, Carbon Dioxide Level 14L, Calcium Level 8.6 10/16/18 04:37: Nucleated Red Blood Cells % (auto) 0.0 10/16/18 04:40: Anion Gap 8, Glomerular Filtration Rate 49.5L, Blood Urea Nitrogen 36H, Creatinine 1.59H, Sodium Level 134L, Potassium Level 3.8, Chloride Level 106, Carbon Dioxide Level 20L, Calcium Level 8.3L, C-Reactive Protein, Quantitative 16.60H, HK-Ybk-[id number]-Type Natriuretic Peptide 741H CBC/BMP Laboratory Tests 10/15/18 14:33 Calcium Level 8.6 10/16/18 04:37 Red Blood Count 4.68, Mean Corpuscular Volume 84.4, Mean Corpuscular Hemoglobin 29.9, Mean Corpuscular Hemoglobin Concent 35.4, Red Cell Distribution Width 13.9 10/16/18 04:40 Calcium Level 8.3 L Microbiology Microbiology 10/14/18 Special Micro Test, Received Pending 10/08/18 Gram Stain - Final, Complete 10/08/18 Body Fluid Culture - Final, Complete 10/08/18 Acid Fast Stain, Received Pending 10/08/18 Mycobacterial Culture, Received Pending 10/08/18 Acid Fast Stain, Received Pending 10/08/18 Mycobacterial Culture, Received Pending 10/08/18 Gram Stain - Final, Complete 10/08/18 Body Fluid Culture - Final, Complete GIOVANNA RASHEED MD October 16, 2018 10:53
[2018-10-16] MEDS: PERCOCET 5MG/325MG TAB PO PRN ×3 (11:06→21:13)
[2018-10-16] MEDS: SODIUM BICARBONATE 150 MEQ in D5W 1,000 ML IV SCH (11:08)
--- NOTE | 2018-10-16 12:26 | CCN ---
DATE: 10/16/2018 The patient was seen and examined this morning during bedside rounds. The patient has been on high-flow nasal cannula at 30 liters per minute with an FiO2 of 35%. He feels his breathing has improved today, although he does continue to have some shortness of breath as well as some coughing with occasional mucus production. He also continues to have some chest pain in his ribs bilaterally, which is worse with deep inspiration. He continues to have episodes of loose watery diarrhea although these are less frequent than previous. He denies any abdominal pain. No nausea and vomiting. He was able to get of bed to the chair as well as walk around his room and did not have any significant desaturation. PHYSICAL EXAMINATION: VITALS: Temperature 97.0, pulse 84, respirations 25, blood pressure 90/56, O2 sat 93% on high-flow nasal cannula at 30 liters per minute with 35% FiO2. Input: 2.7 liters, output 2.6 liters. GENERAL: The patient is awake, alert and not in significant respiratory distress and is able to speak in complete sentences. HEENT: He is normocephalic, atraumatic. Mucous membranes are moist. Pupils are reactive to light bilaterally. Trachea is midline. CARDIOVASCULAR: Regular rate and rhythm. Normal S1, S2. No murmurs appreciated. PULMONARY: Coarse rhonchi bilaterally with diminished breath sounds in the left base. No wheezing noted. ABDOMEN: Abdomen is soft, nontender, nondistended. LOWER EXTREMITIES: There is trace edema in his left lower extremity, which the patient reports his chronic for many years and unchanged. There is no significant lower extremity edema in his right leg. There is no calf tenderness bilaterally. LABS: WBC 18.7, hemoglobin 14.0, platelets 244. Chemistry: Sodium 134, potassium 2.8, chloride 106, bicarb 20, BUN 36, creatinine 1.59, glucose is 140. Chest x-ray this morning shows an infiltrate in his left base with possible effusion. There is some mild pulmonary vascular congestion noted. ASSESSMENT/PLAN: Mr. Garcia is a 47-year-old male with a past medical history of psoriasis and asthma who presented with profuse watery diarrhea. The patient had negative cultures including stool cultures. He had esophagogastroduodenoscopy (EGD) and colonoscopy done on 10/08/2018, which showed evidence of acute and chronic inflammation with cryptitis possibly secondary to inflammatory bowel disease such as Crohn's. He has been started on high doses of IV steroids and mesalamine with some improvement in his diarrhea. The patient was noted to have increasing shortness of breath and hypoxemia. He does have a non-anion gap metabolic acidosis likely secondary to bicarbonate loss secondary to diarrhea. He was given bicarbonate administration with improvement in his acidosis and in his SOB. His chest x-ray also shows a new infiltrate in his left base and he has been complaining of some increasing cough with mucus production. Patient likely with aspiration pneumonia. He was initially given ceftriaxone and but was changed to Zosyn for more anaerobic coverage. - Continue with Zosyn for broad-spectrum coverage and will check a sputum culture today. - Will check procalcitonin and continue to trend - the patient's hypoxemia likely multifactorial secondary to his pneumonia and also evidence of atelectasis and some mild pulmonary vascular congestion. He does appear to have pain with deep inspiration and has been taking shallow breaths. Will continue with incentive spirometer and pain control as needed. - Continue with the high-flow nasal cannula oxygen supplementation and wean him down as tolerated to maintain an O2 sat above 90%. - appreciate renal recommendations. he will be decreasing his bicarbonate drip to 75 mL/h and he is going to be changed to 150 mEq concentration for more isotonic fluid as he has evidence of hyponatremia likely secondary to his IV fluids. - Continue with DuoNebs. - Continue with Solu-Medrol and mesalamine for his possible Crohn disease. Deep venous thrombosis (DVT) prophylaxis with Lovenox. FULL CODE. Total critical care time spent not including any procedures approximately 40 minutes. ROSE
[2018-10-16 14:10] LABS: CHROMOGRANIN A 1 nmol/L (0-5); GASTRIN 48 pg/mL (0-115); VASOACTIVE INTESTINAL PEPTIDE <16.8 pg/mL (0.0-58.8)
--- NOTE | 2018-10-16 15:32 | IPN ---
INFECTIOUS DISEASE PROGRESS NOTE DATE OF SERVICE: 10/16/2018 SUBJECTIVE: Patient is examined at bedside in the intensive care unit (ICU). Since last examined his respiratory status has declined likely compensatory given his significant amount of diarrhea and metabolic acidosis. He is doing much better today. Continues to be on Vapotherm. However, his diarrhea has improved. Previously he had around 10-15 loose watery stools, now has had five within the past 24 hours and are more formed per the patient. No fevers or chills. Is bringing up clear phlegm and was found to have left lower lobe pneumonia since last examined for which he has been transitioned over from ceftriaxone or Flagyl to now Zosyn day 2. REVIEW OF SYSTEMS: Denies fever, chills, night sweat. HEENT: Denies headache of vision changes. SKIN: Denies any new rashes, lesions. PULMONARY: Admits to coughing with clear phlegm and feeling short of breath. CARDIAC: Denies chest pain, palpitations, swelling. GI: Denies nausea, vomiting, abdominal pain or blood loss. Admits to improving diarrhea. MUSCULOSKELETAL: Denies any new muscle aches or pains. NEURO: Denies any new paraesthesias or loss of motor sensation. PHYSICAL EXAMINATION: VITAL SIGNS: Temperature 98.0, pulse 86, respirations 26, blood pressure 106/62, mean arterial pressure (MAP) 77, pulse oximetry 95% on Vapotherm with an FiO2 of 35. GENERAL: Alert and oriented times three. In no acute distress. Resting comfortably in bed. Visibly tired. HEENT: Normocephalic, atraumatic. Pupils equal, round, and reactive to light and accommodation. Extraocular muscles intact. Dry mucous membranes without oral lesions. NECK: Supple without adenopathy. CARDIAC: Regular rate and rhythm with normal S1 and S2. No murmurs. LUNGS: Distant lung sounds on bilateral bases. Good air exchange. No appreciable wheezing, rhonchi, or rales. ABDOMEN: Normoactive bowel sounds, soft, nontender, nondistended. No rebound guarding or rigidity. EXTREMITIES: No edema or tenderness. 2+ DP pulses bilaterally. SKIN: No visible lesions, pink, warm, and dry. NEURO: Strength, motor, and sensation intact throughout. PSYCH: Normal mood and affect. CURRENT MEDICATIONS: - Zosyn 3.375 grams every 8 hours IV day 2 started on 10/15/2018 - Percocet - bicarbonate - DuoNebs - Bacid - Solu-Medrol 100 mg every 6 hours IV started on 10/15/2018 - morphine - Bicitra - Cepacol - mesalamine - multivitamin - Protonix - Zofran - Lomotil - Pepto Bismol - potassium chloride - Bentyl - Tylenol - Lovenox LABORATORIES: WBC 18.7, hemoglobin and hematocrit 14.3 and 9.5, platelets 244. Sodium 134. Potassium 3.8. Bicarbonate 20. BUN and creatinine 36 and 1.59. CRP 16.6. ASSESSMENT AND PLAN: Mr. Hernandez diarrhea is improving as he is being treated for underlying inflammatory bowel disease (IBD), likely Crohn's. He is on Mesalamine and IV steroids as well as anti-diarrheal agents. Imaging has revealed new left lower lobe infiltrate and he endorses productive cough with clear phlegm. Elevated CRP at 16. May continue on current IV Zosyn. Monitor clinical improvement. Regarding his diarrhea his work-up has been negative thus far for any infectious etiology including hepatitis, HIV, ova and parasite. We are awaiting a stool culture, but otherwise continue treating as inflammatory bowel disease and his pneumonia. We will continue to follow along. Will obtain contact information for his [employer] in [place] regarding resuming his Enbrel. My faculty preceptor for this patient encounter was physically present during the encounter and was fully available. All aspects of the patient interview, examination, medical decision making process, and medical care plan development were reviewed and approved by the faculty preceptor. The faculty preceptor is aware and concurs with the plan as stated in the body of this note and will attest to such by his/her cosignature. ROSE
[2018-10-16] MEDS ORDERED: FUROSEMIDE 20 MG/2 ML VIAL (J1940) IV ONE (19:15)
--- NOTE | 2018-10-16 21:06 | IPN ---
DATE: 10/16/2018 SUBJECTIVE The patient was seen and examined at the bedside today morning in the ICU. The patient continues to be on high-flow nasal cannula. He reports that his shortness of breath is slightly better today as compared with yesterday. His metabolic acidosis was also improving with IV bicarb fluids and Bicitra orally. Renal function has been stable with creatinine fluctuating at around 1.4-1.5. The patient is still nonoliguric. He made more than a liter of urine yesterday and more than 600 mL of urine so far today since overnight. The patient continues to have loose bowel movement, but the frequency of the bowel movement has significantly improved. He denies any fevers, chills or rigors at this point. He is currently getting IV antibiotics for pneumonia as well. OBJECTIVE Vital signs: Temperature is 97.2 degrees Fahrenheit. Blood pressure 108/56, pulse is 81, respiratory rate of 33, saturating 95% on 35% FIO2 by high-flow nasal cannula. Intake and output: Urine output recorded is 1.2 liters yesterday. It is 675 mL so far today. Stool output is 550 mL. Weight on the bed scale is not available. PHYSICAL EXAMINATION General: The patient is awake, alert, and oriented times three, laying in bed wearing nasal cannula, moderate respiratory distress. Head and neck examination: Extraocular muscles intact. Pupils equally round and reactive to light. Mucous membranes are moist. Neck is supple. There is no JVD. Cardiovascular: S1, S2, tachycardia. No edema of the bilateral lower extremities. Respiratory: Decreased breath sounds at the bases with mild expiratory crackles bilaterally at the bases. He has poor is inspiratory effort. Abdomen: Soft, obese, positive bowel sounds. Nontender. No organomegaly. Musculoskeletal: No clubbing or cyanosis. Pulses are 2+. 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 Power is for 5/5 in all extremities. Skin: No rashes or ulcers. LAB REVIEW: CBC showed a WBC of 18.7, hemoglobin is 14, platelets are 244. BMP today morning showed sodium 134, potassium 3.8, chloride 106, bicarb is 20, BUN 36, creatinine is 1.5, glucose 140, calcium is 8.3, C-reactive protein is 16.6. Pro-BNP was 741. Microbiology: Sputum cultures are still pending. IMAGING STUDIES A chest x-ray was done today morning which showed persistent left lower lobe infiltrate, increased consolidation on this lobe. Pleural angles are sharp. No new infiltrate was seen. CURRENT INPATIENT MEDICATIONS The patient's medications were all reviewed by me. He is currently on Zosyn 3.375 grams IV every 8 hourly. He continues to be on sodium bicarb drip. However, his rate is at 75 mL an hour. The patient also continues to be on Bicitra 30 mL by mouth three times a day. He has been started on Percocet for pain. He continues to be on potassium chloride 40 mEq by mouth daily. No other change in the medications today as compared with yesterday. ASSESSMENT/PLAN 1. Acute renal failure. It is secondary to persistent diarrhea, dehydration and volume depletion. However renal function has been staying stable now, creatinine is 1.4-1.5 and episodes of diarrhea are improving now. The patient is nonoliguric. Once his diarrhea improves I am going to stop the IV fluids. 2. Normal anion gap metabolic acidosis with respiratory alkalosis. The patient develops severe metabolic acidosis secondary to persistent diarrhea. He is getting IV bicarbonate and IV fluids and he is also on oral Bicitra. Serum bicarbonate level has been gradually improving now. It is 20 on today's labs. Continue the bicarb administration at this time. 3. Hypokalemia. Potassium level has been controlled with oral potassium supplementation 40 mEq by mouth daily. 4. Hyponatremia. It was secondary to hypotonic fluid administration. Sodium level is improving now with isotonic fluids. 5. Hypoxemia. It is multifactorial secondary to combination of rapid shallow breathing, atelectasis, left-sided pneumonia. Continue the high-flow nasal cannula management is as per primary team. 6. Left lower lobe infiltrate. The patient is currently on IV Zosyn 3.375 grams every 8 hourly. White cell count is improving now. 6. Watery diarrhea. It is most likely secondary to Crohn's disease. He is currently getting mesalamine and IV steroids. Frequency of the diarrhea is improving now. Once the diarrhea resolves I would stop the IV fluid administration. Total critical care time spent in the management of this patient in the ICU today morning was 45 minutes.
[2018-10-16] MEDS: PANTOPRAZOLE 40MG INJ (PROTONIX) (C9113) IV SCH (21:11)
[2018-10-17] VITALS (17 sets, daily range): BP systolic 99–139; BP diastolic 55–77
[2018-10-17] MEDS: DICYCLOMINE 10 MG CAP PO SCH ×4 (00:28→16:48)
[2018-10-17] MEDS: methylPREDNISolone INJ 125 MG/2 ML VIAL (J2930) IV SCH ×2 (03:27→09:31)
[2018-10-17] MEDS: PIPERACILLIN/TAZOBACTAM SOD 3.375 GM in D5W MINI-BAG PLUS 50 ML IV SCH ×3 (03:27→20:08)
[2018-10-17 03:33] LABS: HEMATOCRIT 34.5 % (42.0-52.0); HEMOGLOBIN 12.3 g/dl (13.5-17.5); MEAN CORPUSCULAR HEMOGLOBIN 30.2 pg (27.0-33.0); MEAN CORPUSCULAR HGB CONC 35.7 g/dl (32.0-36.5); MEAN CORPUSCULAR VOLUME 84.8 fl (80.0-96.0); PLATELET COUNT, AUTOMATED 203 10^3/uL (150-450); RED BLOOD COUNT 4.07 10^6/uL (4.30-6.10); WHITE BLOOD COUNT 15.3 10^3/uL (4.0-10.0)
[2018-10-17] MEDS: PERCOCET 5MG/325MG TAB PO PRN ×2 (03:33→20:11)
[2018-10-17 03:49] LABS: C REACTIVE PROTEIN QUANTITATIV 12.8 MG/DL (0.00-0.30); CALCIUM LEVEL 8.2 MG/DL (8.5-10.1); CREATININE FOR GFR 1.44 MG/DL (0.70-1.30); GLOMERULAR FILTRATION RATE 55.5 (>60); POTASSIUM SERUM 3.7 MEQ/L (3.5-5.1)
[2018-10-17] MEDS: IPRATROPIUM 0.5MG/ALBUTEROL 2.5MG INH SOL UD 3ML (DUONEB)(J7620) NEB SCH ×4 (08:17→20:06)
[2018-10-17] MEDS: PINK BISMUTH SUSP 524MG/30ML ORAL SYRINGE PO SCH ×4 (09:31→20:09)
[2018-10-17] MEDS: BICITRA 30ML SOLN UDC PO SCH ×2 (09:31→20:09)
[2018-10-17] MEDS: MULTIVITAMINS/MINERALS THERAP 1 TAB PO SCH (09:32)
[2018-10-17] MEDS: LOMOTIL 2.5MG/0.025MG TABLET PO SCH ×4 (09:32→20:10)
[2018-10-17] MEDS: LACTOBACILLUS ACIDOPHILUS CAP (BACID) PO SCH ×3 (09:32→20:09)
[2018-10-17] MEDS: MESALAMINE 250 MG CR CAP PO SCH ×4 (09:32→20:10)
[2018-10-17] MEDS: ENOXAPARIN 40 MG/0.4 ML SYRINGE (J1650) SC SCH (09:32)
[2018-10-17] MEDS: POTASSIUM CHLORIDE 10 MEQ SR TABLET PO SCH (09:32)
--- NOTE | 2018-10-17 11:54 | CCN ---
DATE OF SERVICE: 10/17/2018 The patient was seen and examined this morning during bedside rounds. The patient reports that his breathing has been improving. He still has some slight shortness of breath with exertion but he has been sating well on the high-flow nasal cannula at 30 liters per minute and his FiO2 has been weaned down from 35 to 28% this morning. The patient continues to have sudden chest pain more on his left posterior ribs but it is improving. He feels his cough has also been improving as well. He still has episodes of diarrhea but his stool is becoming more formed and less watery now. He denies any blood in his stool. No melena. No nausea or vomiting and he previously had not had any abdominal pain but today, overnight he reported some cramping lower abdominal pain which is slightly new for him. Yesterday the patient was given a dose of IV Lasix 20 mg. He did have some urine output but he is still mildly net positive today. PHYSICAL EXAMINATION: Temperature 97.6, pulse 61, respiration 17, blood pressure 108/57, O2 96% on 3 liters per minute at 28% FiO2. Input 2.3 liters, out 2.1 liter. General: The patient is awake and alert, is sitting in a chair in no acute respiratory distress. Is able to speak in complete sentences. HEENT: Normocephalic, atraumatic. Mucous membranes are moist. Pupils are reactive to light bilaterally. Trachea is midline. Cardiovascular: Regular rate and rhythm. Normal S1, S2. No murmurs appreciated. Pulmonary: Some coarse rhonchi and wheeze. Inspiratory wheeze on the right side with some diminished breath sounds at the left base with occasional rhonchi. Abdomen is soft, nondistended, nontender. Lower extremities: There is no significant lower extremity edema bilaterally. There is some possible trace edema in his left foot which he reports is chronic. LABORATORY DATA: WBC 15.3, hemoglobin trending down to 12.3, platelets 203. Chemistry: Sodium is 137, potassium 3.7, chloride 104, bicarb 24, BUN 43, creatinine 1.44, glucose is 126, calcium is 8.2. Procalcitonin was called in and the result reported was 5.14, BNP 741 yesterday. ASSESSMENT/PLAN: Mr. Garcia is a 47-year-old male with a past medical history of psoriasis and asthma who presented initially with profuse watery diarrhea. He has had negative stool cultures and microbiology so far. He did have EGD and colonoscopy done which showed evidence of acute and chronic inflammation with cryptitis possibly secondary to an inflammatory bowel disease such as Crohn's. He was started on high doses of IV steroids and mesalamine with some improvement in his diarrhea. The patient then had been noted have increasing shortness of breath and hypoxic respiratory failure. He was found to have and non-anion gap metabolic acidosis likely secondary to bicarbonate loss from his diarrhea. He was given bicarbonate administration with some improvement in his acidosis and in his tachypnea. His chest x-ray also showed a new infiltrate in his left base and the patient had also been complaining of some more pain in that left side and some increasing cough with mucus production. The patient did have some leukocytosis which may be in the setting of infection and also with his steroids. The patient was brought in on antibiotic coverage to [facility] for possible aspiration pneumonia. - The patient's leukocytosis is trending down. His procalcitonin was significantly elevated at 5.14 which is consistent with a bacterial infection and given his chest x-ray likely with an aspiration pneumonia. Will continue with Zosyn for now and follow up the results of his sputum cultures. - Will trend procalcitonin on Friday to determine de-escalation and possibly discontinuation of antibiotics at that time. - The patient's hypoxemic respiratory failure is likely multifactorial secondary to his pneumonia and also due to poor inspiration with atelectasis and likely some pulmonary vascular congestion noted on imaging. His BNP was elevated and he has been aggressively resuscitated with IV fluids. The patient was given small dose of Lasix yesterday but he is still currently net positive. Would follow up with renal recommendations and continue diuresis and monitoring his ins and outs. - Continue with incentive spirometer and pain control. - Will continue weaning down on his high-flow nasal cannula. Will wean down his flow and FiO2 and attempt to transition him to regular nasal cannula if possible today. - The patient's acidosis appears resolved at this point. Would discontinue his bicarbonate infusion and follow up the rest of renal recommendations. - Continue with DuoNebs. - Continue with the Solu-Medrol, can taper down his Solu-Medrol and continue with his mesalamine for his Crohn's disease. - Patient's hemoglobin has been trending down, may be dilutional given his aggressive fluid hydration. Will continue to monitor for now. He has no evidence of melena or bloody bowel movements currently. DVT prophylaxis with Lovenox. FULL CODE. Total critical care time spent not including any procedures approximately 40 minutes. MTDD
[2018-10-17] MEDS ORDERED: FUROSEMIDE 40 MG/4 ML VIAL (J1940) IV ONE (12:00)
--- NOTE | 2018-10-17 12:13 | IPNPDOC ---
Subjective Date Seen The patient was seen on 10/17/18. Subjective Chief Complaint/HPI Patient seen and examined the bedside. Reports that his respiratory status is improving. He also notes that his stool remains less frequent, and he has also noted more formation of the stool consistency. Objective Physical Examination General Exam: Positive: Alert, Cooperative, No Acute Distress ENT Exam: Positive: Atraumatic, Mucous membr. moist/pink Neck Exam: Negative: JVD Chest Exam: Positive: Diminished Heart Exam: Positive: Rate Normal, Normal S1, Normal S2 Abdomen Exam: Positive: Soft; Negative: Tenderness Extremity Exam: Negative: Tenderness, Swelling Psych Exam: Positive: Oriented x 3 Assessment /Plan Plan/VTE VTE Prophylaxis Ordered?: Yes Plan Aspiration Pneumonia CXR notable for left sided infiltrate On Zosyn We will cont to downtitrate supplemental oxygen as tolerated Pulmonary on board Non-anion gap metabolic acidosis with Respiratory Alkalosis, resolved s/p Bicarb gtt as per Nephro Persistent diarrhea likely 2/[address] abdomen with evidence of inflammation in mesentery and SB loops, suspicious for Crohn's disease. s/p EGD/Colonoscopy 10/08--- biopsies notable for diffuse acute and chronic inflammation likely due to inflammatory process. GI on board, input appreciated Infectious disease consulted to rule out infectious etiology Continue Mesalamine, Lomotil, IV Steroids, Bentyl, Pepto Bismol Patient reports that his diarrhea has improved on a day-to-day basis, also notes more formed stools We will continue to monitor the patient's clinical course Acute kidney injury/failure Likely secondary to profuse diarrhea s/p IVF Hydration Renal Function has stabilized to a Serum Cr between 1.4-1.5 Nephrology on board Psoriasis c/w f/u and medications post discharge. Asthma, stable Nebs PRN for SOB. DVT prophylaxis Lovenox subcutaneous VS, I&O, 24H, Fishbone Vital Signs/I&O Vital Signs Date Time Temp Pulse Resp B/P (MAP) Pulse Ox O2 Delivery O2 Flow Rate FiO2 10/17/18 11:43 97 15.0 28 10/17/18 09:00 81 20 104/64 (77) 10/17/18 08:00 97.8 I&O- Last 24 Hours up to 6 AM 10/17/18 06:00 Intake Total 1950 ml Output Total 2575 ml Balance -625 ml Laboratory Data 24H LABS Laboratory Tests 2 10/17/18 03:01: Nucleated Red Blood Cells % (auto) 0.0, Anion Gap 9, Glomerular Filtration Rate 55.5L, Blood Urea Nitrogen 43H, Creatinine 1.44H, Sodium Level 137, Potassium Level 3.7, Chloride Level 104, Carbon Dioxide Level 24, Calcium Level 8.2L, C- Reactive Protein, Quantitative 12.80H 10/17/18 09:25: RV-Tks-I-Type Natriuretic Peptide 843H CBC/BMP Laboratory Tests 10/17/18 03:01 Red Blood Count 4.07 L, Mean Corpuscular Volume 84.8, Mean Corpuscular Hemoglobin 30.2, Mean Corpuscular Hemoglobin Concent 35.7, Red Cell Distribution Width 13.8, Calcium Level 8.2 L Microbiology Microbiology 10/16/18 Gram Stain - Final, Resulted 10/16/18 Sputum Culture, Resulted Pending 10/14/18 Special Micro Test, Received Pending 10/08/18 Gram Stain - Final, Complete 10/08/18 Body Fluid Culture - Final, Complete 10/08/18 Acid Fast Stain, Received Pending 10/08/18 Mycobacterial Culture, Received Pending 10/08/18 Acid Fast Stain, Received Pending 10/08/18 Mycobacterial Culture, Received Pending 10/08/18 Gram Stain - Final, Complete 10/08/18 Body Fluid Culture - Final, Complete GIOVANNA RASHEED MD Oct 17, 2018 12:13
[2018-10-17] MEDS: PANTOPRAZOLE 40MG INJ (PROTONIX) (C9113) IV SCH (20:09)
[2018-10-17] MEDS: methylPREDNISolone INJ 40 MG/1 ML VIAL (J2920) IV SCH (22:13)
[2018-10-18] MEDS: DICYCLOMINE 10 MG CAP PO SCH ×4 (00:16→19:02)
[2018-10-18] MEDS: PERCOCET 5MG/325MG TAB PO PRN ×4 (00:16→20:10)
[2018-10-18 04:00] VITALS: BP 132/75
[2018-10-18] MEDS: MORPHINE 4 MG/ML 1ML VIAL/SYRINGE (J2270) IV PRN ×2 (04:48→08:03)
[2018-10-18] MEDS: PIPERACILLIN/TAZOBACTAM SOD 3.375 GM in D5W MINI-BAG PLUS 50 ML IV SCH ×3 (04:48→20:09)
[2018-10-18 05:37] LABS: BLOOD UREA NITROGEN 36 MG/DL (7-18); C REACTIVE PROTEIN QUANTITATIV 4.97 MG/DL (0.00-0.30); CALCIUM LEVEL 8.4 MG/DL (8.5-10.1); CARBON DIOXIDE LEVEL 25 MEQ/L (21-32); CHLORIDE LEVEL 104 MEQ/L (98-107); CREATININE FOR GFR 1.11 MG/DL (0.70-1.30); GLOMERULAR FILTRATION RATE > 60.0 (>60); GLUCOSE, FASTING 131 MG/DL (70-100); POTASSIUM SERUM 3.3 MEQ/L (3.5-5.1); SODIUM LEVEL 139 MEQ/L (136-145)
[2018-10-18] MEDS: IPRATROPIUM 0.5MG/ALBUTEROL 2.5MG INH SOL UD 3ML (DUONEB)(J7620) NEB SCH ×4 (07:50→20:45)
[2018-10-18 08:00] VITALS: BP 135/69
[2018-10-18 08:05] LABS: MAGNESIUM LEVEL 2.2 MG/DL (1.8-2.4)
[2018-10-18 08:07] LABS: HEMATOCRIT 35.3 % (42.0-52.0); HEMOGLOBIN 12.2 g/dl (13.5-17.5); MEAN CORPUSCULAR HEMOGLOBIN 29.8 pg (27.0-33.0); MEAN CORPUSCULAR HGB CONC 34.6 g/dl (32.0-36.5); MEAN CORPUSCULAR VOLUME 86.1 fl (80.0-96.0); PLATELET COUNT, AUTOMATED 232 10^3/uL (150-450); WHITE BLOOD COUNT 14.8 10^3/uL (4.0-10.0)
--- NOTE | 2018-10-18 09:39 | CCN ---
DATE OF SERVICE: 10/18/2018 CRITICAL CARE PROGRESS NOTE The patient was seen and examined this morning during bedside rounds. The patient has been weaned off of nasal cannula oxygen supplementation to room air. His breathing has improved although he does note some slight lightheadedness with exertion and he continues to have a cough which is not very productive. He has no fevers or chills. He does have some abdominal pain in the lower abdomen but no nausea or vomiting. His stool is becoming more formed. The patient was given Lasix with good urine output yesterday. PHYSICAL EXAMINATION: Temperature 98.2, pulse 66, respirations 18, blood pressure 132/75, O2 sat 96% on room air. Ins 2.1 liters, out approximately 3 liters. General: The patient is awake and alert, is sitting in the chair in no acute respiratory distress. He is able to speak in complete sentences without using accessory muscles of respiration. HEENT: Normocephalic, atraumatic. Mucous membranes are moist. Pupils are reactive to light bilaterally. Trachea is midline. No palpable adenopathy. Cardiovascular: Regular rate and rhythm. Normal S1, S2. No murmurs appreciated. Pulmonary: Some coarse rhonchi and crackles at the left base. There is no wheezing. Abdomen is soft, nondistended. There is some tenderness to palpation in his lower quadrant. Lower extremities: There is trace edema in his left lower extremity which he reports is chronic. No significant lower extremity edema in his right leg. LABORATORY DATA: WBC 14.8, hemoglobin 12.2, platelets 232. Chemistry: Sodium was 139, potassium 3.3, chloride 104, bicarb 25, BUN 36, creatinine 1.11, glucose 131, CRP trending down to 4.97. Micro sputum culture positive for staph aureus and yeast. ASSESSMENT/PLAN: Mr. Garcia is a 47-year-old male with a history of psoriasis and asthma who presented initially with profuse watery diarrhea. He has had negative stool cultures and his GI panel was negative. The patient did have a EGD and colonoscopy done which showed evidence of acute and chronic inflammation with cryptitis possibly secondary to the inflammatory bowel disease such as Crohn's. He has been on high dose IV steroids and mesalamine with improvement in his diarrhea. The patient also had increasing shortness of breath and hypoxic respiratory failure. She had a non-anion gap metabolic acidosis likely secondary to bicarbonate loss from his diarrhea which was contributing to his tachypnea. He also had a new infiltrate in the left base as well as complaint of increasing cough and some chest pain in that left side. He had leukocytosis as well as increased procalcitonin consistent with pneumonia. The patient has been on Zosyn for antibiotics and his leukocytosis is trending down. - His sputum cultures were positive for staph aureus. Given the improvement in his WBC and CRP likely it is not MRSA however will give him a dose of vancomycin pending the sensitivities from his sputum culture. - Will repeat a procalcitonin tomorrow to determine de-escalation of his antibiotics. - The patient's hypoxemic respiratory failure was likely multifactorial secondary to his pneumonia as well as due to poor inspiration with atelectasis and a component of pulmonary edema. His BNP was elevated and he had been getting aggressive fluid hydration with his diarrhea. - The patient was given Lasix and has been net negative. He has been able to be weaned off of the nasal cannula oxygen supplementation to room air. - Continue with incentive spirometer and pain control. - Continue following up renal recommendations. His renal function has improved with diuresis and his acidosis has also resolved. - Continue tapering his Solu-Medrol for his Crohn's disease and continue with mesalamine Continue DuoNebs. Deep venous thrombosis (DVT) prophylaxis. FULL CODE. Total critical care time spent not including procedures approximately 35 minutes. Please do not hesitate to call if any further questions or concerns. MTDD
[2018-10-18] MEDS: ENOXAPARIN 40 MG/0.4 ML SYRINGE (J1650) SC SCH (09:43)
[2018-10-18] MEDS: PINK BISMUTH SUSP 524MG/30ML ORAL SYRINGE PO SCH ×4 (09:43→20:10)
[2018-10-18] MEDS: methylPREDNISolone INJ 40 MG/1 ML VIAL (J2920) IV SCH ×2 (09:43→22:16)
[2018-10-18] MEDS: BICITRA 30ML SOLN UDC PO SCH (09:43)
[2018-10-18] MEDS: MESALAMINE 250 MG CR CAP PO SCH ×4 (09:44→20:09)
[2018-10-18] MEDS: LOMOTIL 2.5MG/0.025MG TABLET PO SCH ×4 (09:44→20:13)
[2018-10-18] MEDS: POTASSIUM CHLORIDE 10 MEQ SR TABLET PO SCH (09:44)
[2018-10-18] MEDS: MULTIVITAMINS/MINERALS THERAP 1 TAB PO SCH (09:45)
[2018-10-18] MEDS: LACTOBACILLUS ACIDOPHILUS CAP (BACID) PO SCH ×3 (09:45→20:10)
[2018-10-18] MEDS ORDERED: VANCOMYCIN HCL 1,000 MG, VIAL MATE ADAPTER 1 EACH in D5W 250 ML IV ONE (10:00)
--- NOTE | 2018-10-18 11:47 | PHACANCOPD ---
PHARMACY VANCOMYCIN DOSING Pt Demographics Demographics Patient Age:47 , Weight:111.400 , Gender: male Adjusted Body Weight Date: 10/18/18, Adjusted Body Weight: Kg Events Past 24 Hours Events Past 24 Hours: NO: Dialysis, Diuretic Therapy, Change in CrCl, Fever, Elevation in WBC, Pending Diagnostics, Pending Procedures, Other Vancomycin Vancomycin indication: pneumonia Vancomycin Target Ranges: 15-20 mcg/ml Vancomycin Load Y/N: Yes Load Dose Date Time Vancomycin Load Dose: 1000mg Date: 10/18 Time: ~11:00 Vancomycin Dose Date: 10/18/18. Current Vancomycin Dose: [1g IV q8h @16] Intermittent Dosing?: No Labs Labs Item Value Date Time Creatinine 1.59 MG/DL H 10/16/18 0440 Creatinine 1.44 MG/DL H 10/17/18 0301 Creatinine 1.11 MG/DL 10/18/18 0500 C-Reactive Protein, Quantitative 4.97 MG/DL H 10/18/18 0500 C-Reactive Protein, Quantitative 12.80 MG/DL H 10/17/18 0301 White Blood Count 18.7 10^3/uL H 10/16/18 0437 White Blood Count 15.3 10^3/uL H 10/17/18 0301 White Blood Count 14.8 10^3/uL H 10/18/18 0457 Micro Microbiology 10/16/18 Gram Stain - Final, Resulted 10/16/18 Sputum Culture - Preliminary, Resulted Staphylococcus Aureus Yeast Like Organism 10/14/18 Special Micro Test, Received Pending 10/08/18 Gram Stain - Final, Complete 10/08/18 Body Fluid Culture - Final, Complete 10/08/18 Acid Fast Stain, Received Pending 10/08/18 Mycobacterial Culture, Received Pending 10/08/18 Acid Fast Stain, Received Pending 10/08/18 Mycobacterial Culture, Received Pending 10/08/18 Gram Stain - Final, Complete 10/08/18 Body Fluid Culture - Final, Complete Creatinine Clearance Date:10/18/18. Creatinine Clearance: [~96 ml/min]. Pending Labs Vanco trough scheduled 10/19 @07:00 Assessment and Plan Maintaining Current Dose?: Yes Reason for dose change: No Dose Change Pharmacist Note Pharmacist Note Date: 10/18/18. Pharmacist note: pt has been started on vancomycin for pneumonia, sputum culture is + for staph aureus (moderate) and yeast. He is currently on day #4 of IV Zosyn. He has not been on vancomycin at our facility in the past. His SCr has been fluctuating the past few days, improved today. Inflammatory markers have been trending down. I have started him on Vancomycin 1g this morning followed by 1g IV q8h to begin ~5 hours later. I have a vancomycin trough scheduled for tomorrow morning. We will continue to monitor and make adjustments as necessary. Joon [email or web address].D. Oct 18, 2018 11:47
[2018-10-18 12:00] VITALS: BP 134/72
--- NOTE | 2018-10-18 13:37 | IPNPDOC ---
Subjective Date Seen The patient was seen on 10/18/18. Subjective Chief Complaint/HPI Patient seen and examined at the bedside. Reports that his respiratory status is improving, he has been weaned off of supplemental oxygen. He continues to complain of some abdominal cramping in the upper quadrants. However, states this is also improved. Notes that his stools are continually becoming more formed. Objective Physical Examination General Exam: Positive: Alert, Cooperative, No Acute Distress ENT Exam: Positive: Atraumatic, Mucous membr. moist/pink Neck Exam: Negative: JVD Chest Exam: Positive: Diminished Heart Exam: Positive: Rate Normal, Normal S1, Normal S2 Abdomen Exam: Positive: Soft, Tenderness (mild tenderness to deep palpation in the bilateral upper quadrants. No rebound tenderness, guarding, or rigidity noted.) Extremity Exam: Negative: Tenderness, Swelling Psych Exam: Positive: Oriented x 3 Assessment /Plan Plan/VTE VTE Prophylaxis Ordered?: Yes Plan Aspiration Pneumonia CXR notable for left sided infiltrate Sputum Culture + Staph On Zosyn, Vanco added for possible MRSA coverage--will de-escalate abx based upon susceptibilities Patient has been weaned off of supplemental oxygen Pulmonary on board Non-anion gap metabolic acidosis with Respiratory Alkalosis, resolved s/p Bicarb gtt as per Nephro Persistent diarrhea likely 2/[address] abdomen with evidence of inflammation in mesentery and SB loops, suspicious for Crohn's disease. s/p EGD/Colonoscopy 10/08--- biopsies notable for diffuse acute and chronic inflammation likely due to inflammatory process. GI on board, input appreciated Infectious disease consulted to rule out infectious etiology Continue Mesalamine, Lomotil, IV Steroids, Bentyl, Pepto Bismol Patient reports that his diarrhea has improved on a day-to-day basis, also notes more formed stools We will continue to monitor the patient's clinical course Acute kidney injury/failure Likely secondary to profuse diarrhea s/p IVF Hydration, intermittent doses of Lasix Renal Function has improved to a serum creatinine of 1.14 this morning. Nephrology on board Psoriasis c/w f/u and medications post discharge. Asthma, stable Nebs PRN for SOB. DVT prophylaxis Lovenox subcutaneous Disposition-pending continued clinical improvement. We anticipate to transition the patient to by mouth steroids and antibiotic therapy in the next 24-48 hours. VS, I&O, 24H, Fishbone Vital Signs/I&O Vital Signs Date Time Temp Pulse Resp B/P (MAP) Pulse Ox O2 Delivery O2 Flow Rate FiO2 10/18/18 12:00 98.3 66 18 134/72 (92) 93 10/17/18 15:30 2.0 10/17/18 11:43 28 I&O- Last 24 Hours up to 6 AM 10/18/18 06:00 Intake Total 2620 ml Output Total 3050 ml Balance -430 ml Laboratory Data 24H LABS Laboratory Tests 2 10/18/18 04:57: Nucleated Red Blood Cells % (auto) 0.0 10/18/18 05:00: Anion Gap 10, Glomerular Filtration Rate > 60.0, Blood Urea Nitrogen 36H, Creatinine 1.11, Sodium Level 139, Potassium Level 3.3L, Chloride Level 104, Carbon Dioxide Level 25, Calcium Level 8.4L, Magnesium Level 2.2, C-Reactive Protein, Quantitative 4.97H CBC/BMP Laboratory Tests 10/18/18 04:57 Red Blood Count 4.10 L, Mean Corpuscular Volume 86.1, Mean Corpuscular Hemoglobin 29.8, Mean Corpuscular Hemoglobin Concent 34.6, Red Cell Distribution Width 13.9 10/18/18 05:00 Calcium Level 8.4 L Microbiology Microbiology 10/16/18 Gram Stain - Final, Resulted 10/16/18 Sputum Culture - Preliminary, Resulted Staphylococcus Aureus Yeast Like Organism 10/14/18 Special Micro Test, Received Pending 10/08/18 Gram Stain - Final, Complete 10/08/18 Body Fluid Culture - Final, Complete 10/08/18 Acid Fast Stain, Received Pending 10/08/18 Mycobacterial Culture, Received Pending 10/08/18 Acid Fast Stain, Received Pending 10/08/18 Mycobacterial Culture, Received Pending 10/08/18 Gram Stain - Final, Complete 10/08/18 Body Fluid Culture - Final, Complete GIOVANNA RASHEED MD Oct 18, 2018 13:37
--- NOTE | 2018-10-18 15:19 | IPN ---
DATE: 10/17/2018 SUBJECTIVE: Patient was seen and examined at the bedside today, morning, in the intensive care unit (ICU). Patient is clinically significantly feeling better. His shortness of breath and tachypnea are improving. His intravenous (IV) fluids were stopped yesterday. He was given a small dose of Lasix 20 mg IV. He had a good urine output with that, and despite IV Lasix, his renal function is improving; creatinine is down to 1.4. His Bicitra dose was increased yesterday. His acidosis is improving. His serum bicarbonate level is 24 today. He continues to be on high-flow nasal cannula. OBJECTIVE: Vital signs: Temperature is 97.8 degrees Fahrenheit, blood pressure 106/59, pulse is 81, respiratory rate of 20, saturating 92% on 28% FiO2. Intake and output: Urine output recorded as 1.6 liters yesterday, 1 liter so far today in the morning since overnight. Weight on the bed scale is 113.9 kg. PHYSICAL EXAMINATION: General: Patient is awake, alert, oriented times three, sitting up in the bed wearing nasal cannula, mild respiratory distress. Head and neck exam: Extraocular muscles intact. Pupils equally round and reactive to light. Mucous membranes are moist. Neck is supple. There is no jugular venous distention (JVD). Cardiovascular: S1, S2, regular rate, and no edema of the bilateral lower extremities. Respiratory: Decreased breath sounds at the bases, left is worse than right, with mild expiratory crackles at the bases. Abdomen: Soft, obese. Positive bowel sounds. Nontender. No organomegaly. Musculoskeletal: No clubbing or cyanosis. Pulses are 2+. Central nervous system ([employer]): No focal deficit. Power is 5/5 in all extremities. Skin: No rashes or ulcers. LAB REVIEW: CBC showed WBC of 15.3, hemoglobin 12.3, platelets are 203. BMP showed sodium 137, potassium 3.7, chloride 104, bicarbonate 24, BUN 43. Creatinine is 1.4; it was 1.5 yesterday. Calcium 8.2, C-reactive protein is 12.8. BNP is 843; it was 741 yesterday. Microbiology: Sputum culture showed Staphylococcus (staph) aureus and yeast-like organism. CURRENT INPATIENT MEDICATIONS: Patient's medications were all reviewed by me. He continues to be on IV Zosyn. He was given a small dose of Lasix 20 mg IV yesterday. Bicitra dose has been changed to 30 mL by mouth twice a day. I have ordered another dose of Lasix 40 mg IV times one dose to be given in the afternoon. Solu-Medrol dose has been changed to 40 mg IV every 12 hours. He continues to be on potassium chloride 40 mEq by mouth daily. ASSESSMENT/PLAN: 1. Acute renal failure. Initially, it was secondary to dehydration, volume depletion, and persistent diarrhea. However, this bump in the creatinine most likely was secondary to fluid overload. Patient was diuresed yesterday. His creatinine is down to 1.4. He will be given another dose of Lasix in the afternoon. 2. Normal anion gap metabolic acidosis with respiratory alkalosis. It was secondary to persistent diarrhea for almost 1 month. IV bicarbonate fluid was stopped yesterday for possible fluid overload. He continues to be on Bicitra. Serum bicarbonate level has improved in the normal range. I have decreased the Bicitra dose to 30 mL by mouth twice a day. Further adjustment in the dose will be done tomorrow morning after review of the labs. 3. Hypokalemia. Patient's potassium level is controlled currently with 40 mEq by mouth daily of potassium. 4. Hyponatremia. Patient had hypervolemic hyponatremia. Sodium level has improved after administration of Lasix 20 mg IV last night. 5. Hypoxemia. It is secondary to combination of pneumonia and fluid overload. He already is on IV antibiotics. One more dose of Lasix will be given in the afternoon. 6. Left lower lobe infiltrate. Continue Zosyn 3.375 grams IV every 8 hours. 7. Watery diarrhea, secondary to Crohn disease. The patient is currently on mesalamine and Solu-Medrol. Solu-Medrol dose has been decreased. Patient has had five bowel movements so far today. Total critical care time spent in the management of this patient today morning in the ICU was 50 minutes. Edited: shashi 10/18/2018 1927
[2018-10-18 16:00] VITALS: BP 114/62
[2018-10-18] MEDS: VANCOMYCIN HCL 1,000 MG, VIAL MATE ADAPTER 1 EACH in D5W 250 ML IV SCH (16:49)
[2018-10-18 20:00] VITALS: BP 129/79
[2018-10-18] MEDS: PANTOPRAZOLE 40MG INJ (PROTONIX) (C9113) IV SCH (20:09)
[2018-10-18 23:59] VITALS: BP 121/63
[2018-10-19] MEDS: PERCOCET 5MG/325MG TAB PO PRN ×5 (00:03→20:46)
[2018-10-19] MEDS: VANCOMYCIN HCL 1,000 MG, VIAL MATE ADAPTER 1 EACH in D5W 250 ML IV SCH ×2 (00:03→08:19)
[2018-10-19] MEDS: DICYCLOMINE 10 MG CAP PO SCH ×5 (00:04→23:44)
[2018-10-19 04:00] VITALS: BP 128/66
[2018-10-19] MEDS: PIPERACILLIN/TAZOBACTAM SOD 3.375 GM in D5W MINI-BAG PLUS 50 ML IV SCH (04:13)
[2018-10-19 07:30] LABS: BLOOD UREA NITROGEN 24 MG/DL (7-18); C REACTIVE PROTEIN QUANTITATIV 2.04 MG/DL (0.00-0.30); CALCIUM LEVEL 7.7 MG/DL (8.5-10.1); CARBON DIOXIDE LEVEL 27 MEQ/L (21-32); CHLORIDE LEVEL 107 MEQ/L (98-107); CREATININE FOR GFR 0.95 MG/DL (0.70-1.30); GLOMERULAR FILTRATION RATE > 60.0 (>60); GLUCOSE, FASTING 126 MG/DL (70-100); MAGNESIUM LEVEL 2.4 MG/DL (1.8-2.4); POTASSIUM SERUM 4.1 MEQ/L (3.5-5.1); SODIUM LEVEL 142 MEQ/L (136-145); VANCOMYCIN LEVEL TROUGH 15.5 UG/ML (10.0-20.0)
[2018-10-19] MEDS: IPRATROPIUM 0.5MG/ALBUTEROL 2.5MG INH SOL UD 3ML (DUONEB)(J7620) NEB SCH ×4 (07:51→20:53)
[2018-10-19 08:00] VITALS: BP 130/64
[2018-10-19] MEDS: ENOXAPARIN 40 MG/0.4 ML SYRINGE (J1650) SC SCH (08:20)
[2018-10-19] MEDS: MESALAMINE 250 MG CR CAP PO SCH ×2 (08:20→12:17)
[2018-10-19] MEDS: LACTOBACILLUS ACIDOPHILUS CAP (BACID) PO SCH ×3 (08:21→20:45)
[2018-10-19] MEDS: PINK BISMUTH SUSP 524MG/30ML ORAL SYRINGE PO SCH ×4 (08:21→20:44)
[2018-10-19] MEDS: POTASSIUM CHLORIDE 10 MEQ SR TABLET PO SCH (08:21)
[2018-10-19] MEDS: LOMOTIL 2.5MG/0.025MG TABLET PO SCH ×4 (08:21→20:45)
[2018-10-19] MEDS: MULTIVITAMINS/MINERALS THERAP 1 TAB PO SCH (08:21)
[2018-10-19] MEDS ORDERED: BICITRA 30ML SOLN UDC PO SCH (09:00)
--- NOTE | 2018-10-19 09:41 | IPN ---
DATE OF SERVICE: 10/18/2018 SUBJECTIVE: Patient seen and examined this morning at the bedside. He is on room air now. He reports his shortness of breath and dyspnea on exertion have improved, although when he ambulated to the bathroom he did not feel that his breathing was back to his baseline. He has a dry cough. His metabolic acidosis has resolved. He reports his stools are more formed. His renal function also shows improvement and he responded well to Lasix administration yesterday. Vital signs: Temperature 98.3, pulse 66, respiratory rate 18, blood pressure 134/72, saturating 93-94% on room air. Intake yesterday was 2.2 liters. Urine output yesterday was 3 liters, net negative 860. Weight in the bed scale today is 111.4 kg. General: The patient is seen sitting upright in bed. Family members are at the bedside. He is awake, alert and comfortable, in no respiratory distress. Extraocular muscles are intact. Tongue is moist. Neck is supple. The jugular veins do not appear elevated. Cardiac: S1, S2, regular rate and rhythm. Lungs have some crackles at the left base, otherwise fairly symmetric air entry. No tachypnea. No accessory muscle use. Comfortable on room air. Abdomen is soft and nontender. The lower extremities show trace edema in the left, which he reports is longstanding. Neurologic: No focal deficits. Oriented times three. Skin: Normal temperature and turgor. LABS: Sodium 139, potassium 3.3, bicarbonate 25, BUN 36, creatinine 1.1, magnesium 2.2, CRP 4.9, hemoglobin 12.2. INPATIENT MEDICATIONS: I have decreased the dose of Bicitra to 30 mL by mouth once daily. I note he has been started on vancomycin 1 gram intravenously every 8 hours in addition to Zosyn. Remainder of medications are unchanged from prior. PROBLEMS: 1. Acute renal failure. It is resolving. Renal function is recovering back towards baseline. His renal injury was secondary to diarrhea and dehydration. He actually became mildly hypervolemic. His IV fluids were subsequently discontinued. He received some gentle diuretics. At present, I see no need for any fluid nor ongoing diuretic use. His volume status is improving as is his renal function. His diarrhea is also improving and he is tolerating oral intake well. 2. Non-anion gap metabolic acidosis. It was secondary to persistent diarrhea. He received bicarbonate containing IV fluids and then was transitioned over to oral Bicitra. His bicarbonate level is now up to 25 on today's blood work. His diarrhea is significantly improved, per the patient, the stools are more formed. I am cutting the Bicitra down to once daily and we can likely discontinue it in the coming day or so. 3. Hypokalemia. It is due to the correction of the acidosis and also due to recent diuretic administration, and previously also due to diarrhea. He continues on daily potassium supplementation. No need for diuretics today. 4. Hypoxemic respiratory failure. Significantly improved, and it was due to pneumonia/subsequent pulmonary edema, and he is now on room air. His white count and C-reactive protein (CRP) are improving. I note he has been started on vancomycin and every 8 hours. I would suggest to follow his vancomycin trough and random levels very closely given risk of accumulation and elevated drug levels. 5. Watery diarrhea secondary to newly diagnosed Crohn disease. He is symptomatically improving. Stools are reported to be more formed now. He continues on steroids, Lomotil, and mesalamine. His acidosis has resolved. His Bicitra is being cut down. His volume status is also improved.
[2018-10-19] MEDS: predniSONE 20 MG TAB PO SCH (10:49)
[2018-10-19 12:00] VITALS: BP 118/50
[2018-10-19] MEDS: AUGMENTIN 875 MG TAB PO SCH ×2 (12:17→20:44)
[2018-10-19] MEDS: CEPACOL LOZENGE PO PRN ×2 (12:22→13:54)
--- NOTE | 2018-10-19 14:36 | IPNPDOC ---
Subjective Date Seen The patient was seen on 10/19/18. Subjective Chief Complaint/HPI Patient seen and examined at the bedside. Reports that his respiratory status and his overall clinical condition continues to improve. He states that his stools continue to become more formed. Has occasional abdominal cramping/discomfort but otherwise is able to tolerate a by mouth diet without any complaints of nausea or vomiting. Objective Physical Examination General Exam: Positive: Alert, Cooperative, No Acute Distress ENT Exam: Positive: Atraumatic, Mucous membr. moist/pink Neck Exam: Negative: JVD Chest Exam: Positive: Diminished Heart Exam: Positive: Rate Normal, Normal S1, Normal S2 Abdomen Exam: Positive: Soft, Tenderness (mild tenderness to deep palpation in the bilateral upper quadrants. No rebound tenderness, guarding, or rigidity noted.) Extremity Exam: Negative: Tenderness, Swelling Psych Exam: Positive: Oriented x 3 Assessment /Plan Plan/VTE VTE Prophylaxis Ordered?: Yes Plan Aspiration Pneumonia CXR notable for left sided infiltrate Sputum Culture + Staph, susceptibilities noted IV Abx transitioned to PO Augmentin Patient has been weaned off of supplemental oxygen Pulmonary on board, input appreciated Patient ambulating the hallways today, and continues to improve Non-anion gap metabolic acidosis with Respiratory Alkalosis, resolved s/p Bicarb gtt as per Nephro Bicitra has been discontinued Persistent diarrhea likely 2/2 Underlying IBD, improving CT abdomen with evidence of inflammation in mesentery and SB loops, suspicious for Crohn's disease. s/p EGD/Colonoscopy 10/08--- biopsies notable for diffuse acute and chronic inflammation likely due to inflammatory process. GI on board, input appreciated Infectious disease consulted to rule out infectious etiology Patient reports continued improvement and stool formation Discussed case with Dr. Huber today, we will transition the patient to PO Prednisone 20mg daily starting tomorrow, and discontinue Mesalamine. F/U as outpatient Acute kidney injury/failure, resolved Likely secondary to profuse diarrhea s/p IVF Hydration, intermittent doses of Lasix due to overload Renal Function back to baseline Nephrology on board Psoriasis We will ask that the patient resume his Enbrel starting on his next scheduled dose on Friday10/25/18 after he has completed his Abx trial for Aspiration PNA Asthma, stable Nebs PRN for SOB. DVT prophylaxis Lovenox subcutaneous Disposition-pending continued clinical improvement. IV Abx/Steroids transitioned to PO. Anticipate D/C Home in the next 24-48hrs. VS, I&O, 24H, Fishbone Vital Signs/I&O Vital Signs Date Time Temp Pulse Resp B/P (MAP) Pulse Ox O2 Delivery O2 Flow Rate FiO2 10/19/18 12:00 97.6 68 18 118/50 (72) 95 10/17/18 15:30 2.0 10/17/18 11:43 28 I&O- Last 24 Hours up to 6 AM 10/19/18 05:59 Intake Total 2820 ml Output Total 2875 ml Balance -55 ml Laboratory Data 24H LABS Laboratory Tests 2 10/19/18 06:42: Anion Gap 8, Glomerular Filtration Rate > 60.0, Blood Urea Nitrogen 24H, Creatinine 0.95, Sodium Level 142, Potassium Level 4.1#, Chloride Level 107, Carbon Dioxide Level 27, Calcium Level 7.7L, Magnesium Level 2.4, C-Reactive Protein, Quantitative 2.04H, Vancomycin Level Trough 15.5 CBC/BMP Laboratory Tests 10/19/18 06:42 Calcium Level 7.7 L Microbiology Microbiology 10/16/18 Gram Stain - Final, Complete 10/16/18 Sputum Culture - Final, Complete Staphylococcus Aureus Yeast Like Organism 10/14/18 Special Micro Test, Received Pending GIOVANNA RASHEED MD Oct 19, 2018 14:36
[2018-10-19 16:00] VITALS: BP 130/58
--- NOTE | 2018-10-19 18:59 | IPN ---
DATE: 10/19/2018 Sina is doing much better. He is in progressive care unit (PCU). He is anxious to go home in the next 48 hours. He has been afebrile. His temperature is 98.3, pulse 62, respirations 16b in blood pressure 130/58, oxygen saturation 92% on room air. HEART: Normal S1, S2. No murmurs appreciated. LUNGS: Diminished breath sounds at the bases with few crackles. ABDOMEN: Soft, mildly tender in the suprapubic area. No rebound. BACK: No costovertebral angle (CVA) tenderness. EXTREMITIES: +1 pitting edema bilaterally. LABORATORY DATA: White count 14.8, hemoglobin 12.2, hematocrit 35.3, platelets 232. Sodium 142, potassium 4.1, chloride 107, bicarbonate 27, BUN 24, creatinine 0.95, glucose 126, calcium 7.7, magnesium 2.4. CRP 2.04, down from 16.6 on 10/16/2018. Procalcitonin on 10/16/2018 was 5.14 and on 10/19/2018 was 0.3. Sputum culture had methicillin-sensitive Staphylococcus aureus (MSSA) and yeastlike organism. MEDICATIONS: Vancomycin and Zosyn were discontinued today. Patient was switched to Augmentin 875 mg by mouth twice a day, prednisone 40 mg daily, probiotics 1 tablet by mouth three times a day, nebulizers. He is still receiving his Lomotil 2 tablets by mouth four times a day and mesalamine was discontinued. IMPRESSION: 1. Staphylococcus aureus pneumonia. Doing much better on Augmentin 875 mg by mouth twice a day. Please continue for five days on discharge. 2. Irritable bowel disease, suspicious for Crohn's. Patient doing much better with prednisone, currently on 40 mg daily. Would not resume his Enbrel until one week after he finishes his antibiotics. Case has been discussed with Dr. Huber, who agrees with the plan and who will see him in followup in 2-3 weeks. He also recommended to discontinue mesalamine. 3. Psoriasis. Enbrel will remain on hold. Patient will be controlled with prednisone at this time until antibiotics are discontinued. Patient will be discharged home in the next 24-48 hours on Augmentin 875 mg twice a day for five days.
[2018-10-19 20:00] VITALS: BP 136/68
[2018-10-19] MEDS: PANTOPRAZOLE 40MG INJ (PROTONIX) (C9113) IV SCH (20:44)
[2018-10-19 23:59] VITALS: BP 114/68
[2018-10-20] MEDS: PERCOCET 5MG/325MG TAB PO PRN ×5 (01:36→20:37)
[2018-10-20 04:00] VITALS: BP 126/72
[2018-10-20] MEDS: DICYCLOMINE 10 MG CAP PO SCH ×4 (05:07→23:51)
[2018-10-20] MEDS: MORPHINE 4 MG/ML 1ML VIAL/SYRINGE (J2270) IV PRN (05:08)
[2018-10-20] MEDS: ACETAMINOPHEN TAB 650MG DOSE (2X325MG) PO PRN ×2 (05:49→23:52)
[2018-10-20 06:05] LABS: HEMATOCRIT 36.7 % (42.0-52.0); HEMOGLOBIN 12.2 g/dl (13.5-17.5); MEAN CORPUSCULAR HEMOGLOBIN 28.7 pg (27.0-33.0); MEAN CORPUSCULAR HGB CONC 33.2 g/dl (32.0-36.5); MEAN CORPUSCULAR VOLUME 86.4 fl (80.0-96.0); PLATELET COUNT, AUTOMATED 240 10^3/uL (150-450); RED BLOOD COUNT 4.25 10^6/uL (4.30-6.10); WHITE BLOOD COUNT 14.9 10^3/uL (4.0-10.0)
[2018-10-20 06:30] LABS: BLOOD UREA NITROGEN 17 MG/DL (7-18); CARBON DIOXIDE LEVEL 26 MEQ/L (21-32); CHLORIDE LEVEL 107 MEQ/L (98-107); CREATININE FOR GFR 0.78 MG/DL (0.70-1.30); GLOMERULAR FILTRATION RATE > 60.0 (>60); GLUCOSE, FASTING 93 MG/DL (70-100); POTASSIUM SERUM 3.7 MEQ/L (3.5-5.1); SODIUM LEVEL 142 MEQ/L (136-145)
[2018-10-20] MEDS: IPRATROPIUM 0.5MG/ALBUTEROL 2.5MG INH SOL UD 3ML (DUONEB)(J7620) NEB SCH ×4 (07:11→19:53)
--- NOTE | 2018-10-20 07:42 | IPN ---
DATE: 10/19/2018 SUBJECTIVE: The patient is seen and examined this morning at the bedside. He complains of some tenderness in the epigastrium. Otherwise denies any issues. Reports that he has been ambulating without dyspnea on exertion. Reports that the stools are now pasty. Denies any recurrent watery diarrhea. Laboratory studies show recovery of renal function to baseline and complete resolution of acidosis. PHYSICAL EXAMINATION: Vital Signs: Temperature 98.7, pulse 54, respiratory rate 18, blood pressure 136/68, saturating 95% on room air. General: The patient is seen lying in bed. Head of bed elevated. Awake, alert, oriented, comfortable, in no acute distress. Extraocular muscles are intact. Tongue is moist. Neck is supple. Jugular veins were not elevated. Cardiac: S1 and S2, regular rate and rhythm. Lungs show symmetric air entry bilaterally. No crackle or rale except at the bases. The abdomen is soft and mildly tender in the epigastrium. There are bowel sounds. The extremities show trace edema and compression stockings. Skin: Normal temperature and turgor. LABORATORY DATA: White count 14, hemoglobin 12, sodium 142, potassium 4.1, bicarbonate 27, BUN 24, creatinine 0.9. INPATIENT MEDICATIONS: I discontinued his Bicitra. His primary team has discontinued his Solu-Medrol and started him on prednisone 40 mg by mouth daily. PROBLEMS: 1. Acute kidney injury (MOON). It has resolved. Renal function has recovered back towards baseline. His bowel movements are now pasty. There is no more watery diarrhea reported. His volume status is acceptable. He is tolerating oral intake. He reports chronic NSAID dependence and he is advised to cut down in the outpatient setting. 2. Non anion gap metabolic acidosis. It was secondary to diarrhea. It resolved with bicarbonate containing fluids and then Bicitra. He is discontinued off of bicarbonate supplements. His diarrhea is significantly improved. 3. Hypokalemia. It was due to the correction of the acidemia and also due to diuretic administration and previously due to diarrhea. His potassium has normalized. He is not receiving any further diuretic. His standing potassium supplement is discontinued. 4. Staph aureus pneumonia. He is clinically improved. Antibiotics have been switched to oral formulation per infectious diseases. Nephrology is signing off at present, please reconsult as needed.
[2018-10-20 08:00] VITALS: BP 148/86
[2018-10-20] MEDS: ENOXAPARIN 40 MG/0.4 ML SYRINGE (J1650) SC SCH (08:03)
[2018-10-20] MEDS: PINK BISMUTH SUSP 524MG/30ML ORAL SYRINGE PO SCH ×4 (08:04→20:05)
[2018-10-20] MEDS: LOMOTIL 2.5MG/0.025MG TABLET PO SCH (08:04)
[2018-10-20] MEDS: AUGMENTIN 875 MG TAB PO SCH ×2 (08:04→20:05)
[2018-10-20] MEDS: MULTIVITAMINS/MINERALS THERAP 1 TAB PO SCH (08:04)
[2018-10-20] MEDS: LACTOBACILLUS ACIDOPHILUS CAP (BACID) PO SCH ×3 (08:04→20:05)
[2018-10-20] MEDS: predniSONE 20 MG TAB PO SCH (08:04)
--- NOTE | 2018-10-20 10:27 | IPNPDOC ---
Subjective Date Seen The patient was seen on 10/20/18. Subjective Chief Complaint/HPI Patient seen and examined at the bedside. He endorses that he is having some more abdominal cramping this morning. However, notes that his stool frequency is down to 3 times per day. He notes continued formation of his stools. Denies any nausea or vomiting. Tolerating a by mouth diet. He is hopeful to go home tomorrow once his pain is better controlled. Objective Physical Examination General Exam: Positive: Alert, Cooperative, No Acute Distress ENT Exam: Positive: Atraumatic, Mucous membr. moist/pink Neck Exam: Negative: JVD Chest Exam: Positive: Diminished Heart Exam: Positive: Rate Normal, Normal S1, Normal S2 Abdomen Exam: Positive: Soft, Tenderness (mild tenderness to deep palpation in the supraumbilical area. No rebound tenderness, guarding, or rigidity noted.) Extremity Exam: Negative: Tenderness, Swelling Psych Exam: Positive: Oriented x 3 Assessment /Plan Plan/VTE VTE Prophylaxis Ordered?: Yes Plan Aspiration Pneumonia CXR notable for left sided infiltrate Sputum Culture + Staph, susceptibilities noted IV Abx transitioned to PO Augmentin to be continued 5 more days on discharge Pulmonary/ID on board, input appreciated Persistent diarrhea likely 2/2 Underlying IBD, improving CT abdomen with evidence of inflammation in mesentery and SB loops, suspicious f or Crohn's disease. s/p EGD/Colonoscopy 10/08--- biopsies notable for diffuse acute and chronic infl ammation likely due to inflammatory process. GI on board, input appreciated Patient reports continued improvement and stool formation Discussed case with Dr. Huber of GI on 10/19, we will transition the patient to PO Prednisone 20mg daily (to be taken for 1 month upon discharge), and discontinue Mesalamine. F/U as outpatient Non-anion gap metabolic acidosis with Respiratory Alkalosis, resolved s/p Bicarb gtt as per Nephro Bicitra has been discontinued Acute kidney injury/failure, resolved Likely secondary to profuse diarrhea s/p IVF Hydration, intermittent doses of Lasix due to overload Renal Function back to baseline Nephrology on board Psoriasis We will ask that the patient resume his Enbrel starting 1 week after he has completed his Abx trial for Aspiration PNA as per ID. Asthma, stable Nebs PRN for SOB. DVT prophylaxis Lovenox subcutaneous Disposition-Anticipate D/C Home tomorrow pending continued clinical improvement. Please note that the patient will need to be seen and cleared for discharge tomorrow on 10/21/18 by the oncoming provider Dr. Goode before being discharge d. VS, I&O, 24H, Fishbone Vital Signs/I&O Vital Signs Date Time Temp Pulse Resp B/P (MAP) Pulse Ox O2 Delivery O2 Flow Rate FiO2 10/20/18 08:18 18 10/20/18 08:00 98.7 74 148/86 (106) 93 10/17/18 15:30 2.0 10/17/18 11:43 28 I&O- Last 24 Hours up to 6 AM 10/20/18 05:59 Intake Total 3860 ml Output Total 2550 ml Balance 1310 ml Laboratory Data 24H LABS Laboratory Tests 2 10/20/18 05:48: Nucleated Red Blood Cells % (auto) 0.0, Anion Gap 9, Glomerular Filtration Rate > 60.0, Blood Urea Nitrogen 17, Creatinine 0.78, Sodium Level 142, Potassium Level 3.7, Chloride Level 107, Carbon Dioxide Level 26, Calcium Level 8.0L, Magnesium Level 2.0 CBC/BMP Laboratory Tests 10/20/18 05:48 Red Blood Count 4.25 L, Mean Corpuscular Volume 86.4, Mean Corpuscular Hemoglobin 28.7, Mean Corpuscular Hemoglobin Concent 33.2, Red Cell Distribution Width 13.9, Calcium Level 8.0 L Microbiology Microbiology 10/16/18 Gram Stain - Final, Complete 10/16/18 Sputum Culture - Final, Complete Staphylococcus Aureus Yeast Like Organism 10/14/18 Special Micro Test, Received Pending GIOVANNA RASHEED MD Oct 20, 2018 10:27
[2018-10-20 12:00] VITALS: BP 122/70
[2018-10-20 16:00] VITALS: BP 126/72
[2018-10-20] MEDS ORDERED: AMOX875T2 PO (17:29)
[2018-10-20] MEDS ORDERED: PERCOCET PO (17:29)
[2018-10-20] MEDS ORDERED: PRED20TA PO (17:29)
[2018-10-20] MEDS: CEPACOL LOZENGE PO PRN (19:47)
[2018-10-20 20:00] VITALS: BP 110/70
[2018-10-20 23:59] VITALS: BP 118/68
[2018-10-21] MEDS: PERCOCET 5MG/325MG TAB PO PRN ×3 (00:41→11:26)
[2018-10-21] MEDS ORDERED: KETOROLAC 30 MG/ML VIAL (J1885) IV ONE (03:15)
[2018-10-21 04:00] VITALS: BP 122/72
[2018-10-21] MEDS: DICYCLOMINE 10 MG CAP PO SCH ×2 (05:54→11:26)
[2018-10-21 08:00] VITALS: BP 124/82
[2018-10-21] MEDS: LACTOBACILLUS ACIDOPHILUS CAP (BACID) PO SCH (08:11)
[2018-10-21] MEDS: MULTIVITAMINS/MINERALS THERAP 1 TAB PO SCH (08:11)
[2018-10-21] MEDS: AUGMENTIN 875 MG TAB PO SCH (08:11)
[2018-10-21] MEDS: PINK BISMUTH SUSP 524MG/30ML ORAL SYRINGE PO SCH (08:12)
[2018-10-21] MEDS: ENOXAPARIN 40 MG/0.4 ML SYRINGE (J1650) SC SCH (08:12)
[2018-10-21] MEDS: IPRATROPIUM 0.5MG/ALBUTEROL 2.5MG INH SOL UD 3ML (DUONEB)(J7620) NEB SCH (08:33)
[2018-10-21] MEDS ORDERED: predniSONE 20 MG TAB PO SCH (09:00)
--- NOTE | 2018-10-26 05:57 | DS.PDOC ---
Discharge Summary General Date of Admission October 04, 2018 at 16:06 Date of Discharge 10/21/2018 Discharge Summary PROCEDURES PERFORMED DURING STAY: 1-10/08/18: EGD/Colonoscopy with Biopsy ADMITTING DIAGNOSES: 1. Persistent Profuse Diarrhea 2. Dehydration 3. MOON 4. Non Anion Gap Metabolic Acidosis 5. Psoriatic Arthritis 6. Asthma DISCHARGE DIAGNOSES: 1. Inflammatory Bowel Disease likely Crohn's Disease 2. Aspiration Left Lower Lobe Pneumonia 3. Non Anion Gap MA 4. MOON 5. Hypokalemia 6. Acute hypoxic respiratory failure sec to Aspiration pneumonia COMPLICATIONS/CHIEF COMPLAINT: Dehydration,Diarrhea, HISTORY OF PRESENT ILLNESS: As recorded in HPI: "Patient is a 47-year-old male with past medical history of psoriasis and asthma presented to ER for complaints of persistent diarrhea for the past 3 weeks. Patient reportedly went to GI Dr. Melgar for elective colonoscopy and EGD 09/16/18 for reported abdominal discomfort and routine as patient has a family history of colon cancer. Since of procedure patient was noted to have profuse diarrhea every day up to 15 bowel movements each day. He has had follow-up since the procedure and thought that symptoms are attributed to viral enteritis and was recommended supportive care. He has had an ER visit on the 4th follow by PMD visit for the same problem. Eventually prescribed Lomotil to help with diarrhea which he said has not helped. Patient reported a 33lb weight loss in the past 19 days since all this had started. He denies any recent travels or any unusual activities. 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 He denies any other symptoms including nausea, vomiting, fever, chills. " HOSPITAL COURSE: Pt was admitted to [facility] on 10/04 with above presentation. Close clinical monitoring, IVF NS resuscitation, Antibiotics (cipro, flagyl) initiated for profuse watery diarrhea. Pt continued to received IVF NS resuscitation and electrolyte supplementation. GI service was on board, pt underwent EGD/Colonoscopy with biopsies on 10/08 with result as below. Pt was placed on IV steroids and mesalamine for possible IBD as per colonoscopy result. ID service consulted on 10/13 to r/o infectious etiologies. Celiac panel, stool cultures for listeria etc. was performed. Pt developed respiratory distress with new left lower lobe infiltrates on CXR and received broad spectrum antibiotics for aspiration pneumonia. Subsequently sputum culture revealed MSSA. ABx switched to Augmentin. Pt also developed MOON with severe non anion gap MA require Bicarb gtt and IVF resuscitation. Subsequently, renal function improved with good urine output. ID, GI, Pulmonary and Nephro service was on board and followed pt jaspal harris. DISCHARGE MEDICATIONS: Please see below. ALLERGIES: Please see below. PHYSICAL EXAMINATION ON DISCHARGE: General Exam: Positive: Alert, Cooperative, No Acute Distress ENT Exam: Positive: Atraumatic, Mucous membr. moist/pink Neck Exam: Negative: JVD Chest Exam: Positive: Diminished Heart Exam: Positive: Rate Normal, Normal S1, Normal S2 Abdomen Exam: Positive: Soft, Tenderness (mild tenderness to deep palpation in the supraumbilical area. No rebound tenderness, guarding, or rigidity noted.) Extremity Exam: Negative: Tenderness, Swelling Psych Exam: Positive: Oriented x 3 LABORATORY DATA: Please see below. IMAGIN10/04/18 Abdomen/Pelvis CT: Inflm in mesentary ,SB loops, can be sec to Crohn's Disease, LAP 10/06/18 CT enterography: Inflm changes 10/07/18 GB Scan: biliary stasis , patency of cystic duct 10/15/18 CXR Lt lower lobe infiltrates 10/08/18 EGD/Colonoscopy with Biopsy following report: - The 10-15 cm examined portion of the ileum was normal. Biopsied. - Six erosions/superficial ulcerations in the cecum and ileocecal valve. Biopsied - Three erosions/superficial ulcerations at the anus and in the distal rectum. Biopsied. -Mildly erythematous mucosa in the entire examined colon. Biopsied. - One 5 mm polyp in the ascending colon, removed with a cold snare. Resected - Small Internal Hemorrhoids. - Random biopsies were taken with a cold forceps from the entire colon for r/o viral/amebic/ibd/ischemic - Fluid aspiration was performed r/o viral/amebic/ibd/ischemic. - Normal esophagus. - Normal stomach. - Subtle slightly nodular mucosa in the first and second portion of the duodenum. Biopsied. - Fluid aspiration was performed. - Biopsies were taken with a cold forceps for histology in the first portion of the duodenum, in the second portion of the duodenum and in the third portion of the duodenum. FINAL DIAGNOSIS A Duodenum, biopsy: Fragments of markedly inflamed and focally ulcerated duodenal mucosa with marked architectural distortion and blunting/flattening of villi. See note. B Terminal ileum, biopsy: Fragments of markedly inflamed and ulcerated terminal ileum mucosa with microabscess formation, no granuloma or dysplasia is identified. C Colon, ulcer, biopsy: Fragments of inflamed and ulcerated colonic mucosa with expansion of lamina propria by acute and chronic inflammatory cells, scattered cryptitis and crypt abscesses. No granuloma or dysplasia is identified. D Ascending colon polyp, polypectomy: Polypoid fragment of markedly inflamed colonic mucosa. E Colon, random biopsies: Fragments of colonic mucosa with inflammatory infiltrate of lamina propria as well as scattered cryptitis, no granuloma or dysplasia is identified. F Rectal ulcer, biopsy: Fragments of markedly inflamed and ulcerated colonic mucosa, no granuloma or dysplasia is identified. See note. NOTE: All biopsy fragments from both small bowel and colon had morphologic similarities which are signified by diffuse acute and chronic inflammation without significant architectural distortion (chronicity) and are likely due to the same inflammatory process. An infectious etiology is possible, clinical correlation is necessary PROGNOSIS: Guarded ACTIVITY: [As tolerated]. DIET: No limitation DISPOSITION: 01 Home, Self-Care. ITEMS TO FOLLOWUP ON ON OUTPATIENT: 1. GI in 2 weeks 2. PCP in 1 week DISCHARGE CONDITION: [Stable]. TIME SPENT ON DISCHARGE: Greater than 35 minutes. Vital Signs/I&Os Vital Signs Date Time Temp Pulse Resp B/P (MAP) Pulse Ox O2 Delivery O2 Flow Rate FiO2 10/21/18 11:56 20 10/21/18 08:00 97.2 56 124/82 (96) 91 Microbiology Microbiology 10/16/18 Gram Stain - Final, Complete 10/16/18 Sputum Culture - Final, Complete Staphylococcus Aureus Yeast Like Organism Discharge Medications Scheduled Amoxicillin/Potassium Clav (Amox-Clav 875-125 mg Tablet) 1 Each Tablet, 875 MG P O BID Prednisone (Prednisone) 20 Mg Tablet, 20 MG PO DAILY Scheduled PRN Acetaminophen (Acetaminophen) 500 Mg Tablet, 500 MG PO Q4H PRN for PAIN, (Reported) Albuterol Sulfate (Proair Hfa) 8.5 Gm Hfa.aer.ad, 2 PUFF INH Q4H PRN for SHORTNESS OF BREATH, (Reported) Diphenoxylate HCl/Atropine (Diphenoxylate-Atrop 2.5-0.025) 1 Each Tablet, 1 TAB PO Q6H PRN for DIARRHEA, (Reported) Oxycodone/Acetaminophen (Oxycodone-Acetaminophen 5-325) 1 Each Tablet, 1 TAB PO Q4HP PRN for MILD/MODERATE PAIN (PS 1-7) Allergies Coded Allergies: latex (Verified Allergy, Intermediate, Itching, 10/04/18) Pt states sensitivity to latex gloves. Gloves caused itching. epinephrine (Verified Adverse Reaction, Intermediate, HIGH DOSE EPI - SEVERE SVT, 09/08/18) codeine (Verified Adverse Reaction, Mild, hallucinations, 09/08/18) CECI JACOB MD Oct 26, 2018 05:57
== END 2018-10-21 12:08 | disposition home or self-care (01) | DRG 391 ==
LOC: M ED 11:06 → M ED INP 16:06 → M MSPAV 17:27 → M ICU 10-15 08:28 → M PCU 10-17 20:21
PROVIDERS: ADMIT Student in an Organized Health Care Education/Training Program; ATTEND Hospitalist
PROC: 0DB98ZX Excision of Duodenum, Via Natural or Artificial Opening Endoscopic, Diagnostic (ICD-10-PCS; 2018-10-08)
PROC: 0DBB8ZX Excision of Ileum, Via Natural or Artificial Opening Endoscopic, Diagnostic (ICD-10-PCS; 2018-10-08)
PROC: 0DBP8ZX Excision of Rectum, Via Natural or Artificial Opening Endoscopic, Diagnostic (ICD-10-PCS; 2018-10-08)
PROC: 0DBK8ZX Excision of Ascending Colon, Via Natural or Artificial Opening Endoscopic, Diagnostic (ICD-10-PCS; principal; 2018-10-08 16:10)
DX: K52.9 Noninfective gastroenteritis and colitis, unspecified (principal); J69.0 Pneumonitis due to inhalation of food and vomit; J96.01 Acute respiratory failure with hypoxia; N17.9 Acute kidney failure, unspecified; E87.2 Acidosis; E87.1 Hypo-osmolality and hyponatremia; E87.6 Hypokalemia; E86.0 Dehydration; L40.50 Arthropathic psoriasis, unspecified; A08.4 Viral intestinal infection, unspecified; Z91.040 Latex allergy status; Z88.5 Allergy status to narcotic agent; Z88.8 Allergy status to other drugs, medicaments and biological substances; Z79.899 Other long term (current) drug therapy; J45.909 Unspecified asthma, uncomplicated; K64.8 Other hemorrhoids; D12.2 Benign neoplasm of ascending colon; D72.829 Elevated white blood cell count, unspecified; B95.61 Methicillin susceptible Staphylococcus aureus infection as the cause of diseases classified elsewhere

== ENCOUNTER → 2018-10-22 | Outpatient (REF) | payer OTHER ==
[~2018-10-22] MED LIST changes: +ACET500T15 PO; +AMOX875T2 PO; +DIPH2.5T15 PO; +ENBR25IN3 SC; +IBUP200T45 PO; +PERCOCET PO; +PRED20TA PO
[2018-10-22 19:26] LABS: ALBUMIN 2.4 GM/DL (3.2-5.2); ALT/SGPT 50 U/L (12-78); BILIRUBIN,TOTAL 0.4 MG/DL (0.2-1.0); BLOOD UREA NITROGEN 11 MG/DL (7-18); C REACTIVE PROTEIN QUANTITATIV 4.14 MG/DL (0.00-0.30); CARBON DIOXIDE LEVEL 31 MEQ/L (21-32); CHLORIDE LEVEL 102 MEQ/L (98-107); COMPLEMENT C3 118 MG/DL (90-180); COMPLEMENT C4 35 MG/DL (10-40); CPK CREATINE PHOSPHOKINASE 47 U/L (39-308); CREATININE FOR GFR 0.85 MG/DL (0.70-1.30); GLOMERULAR FILTRATION RATE > 60.0 (>60); GLUCOSE, FASTING 92 MG/DL (70-100); POTASSIUM SERUM 3.9 MEQ/L (3.5-5.1); RHEUMATOID FACTOR QUANT < 10.0 IU/ML (<15.0); SODIUM LEVEL 141 MEQ/L (136-145); TOTAL PROTEIN 5.6 GM/DL (6.4-8.2); URIC ACID 4.2 MG/DL (3.5-7.2)
[2018-10-22 19:31] LABS: APPEARANCE, URINE CLEAR (CLEAR); BACTERIA, URINE AUTO NEGATIVE (NEGATIVE); BILIRUBIN, URINE AUTO NEGATIVE (NEGATIVE); BLOOD, URINE BLOOD NEGATIVE (NEGATIVE); COLOR, URINE STRAW (YELLOW); GLUCOSE, URINE (UA) AUTO NEGATIVE (NEGATIVE); KETONE, URINE AUTO NEGATIVE (NEGATIVE); LEUKOCYTE ESTERASE, URINE AUTO NEGATIVE (NEGATIVE); NITRITE, URINE AUTO NEGATIVE (NEGATIVE); PROTEIN, URINE AUTO NEGATIVE (NEGATIVE); RBC, URINE AUTO 0 /HPF (0-3); SPECIFIC GRAVITY URINE AUTO 1.002 (1.002-1.035); SQUAMOUS EPITHELIAL CELL UR AU 0 /HPF (0-6); UROBILINOGEN, URINE AUTO 0.2 mg/dL (0.0-2.0); WBC, URINE AUTO 0 /HPF (0-3)
[2018-10-22 19:38] LABS: CREATININE,RANDOM URINE < 13.0 MG/DL; TOTAL PROTEIN,RANDOM URINE 5.8 MG/DL (0.0-12.0)
[2018-10-22 22:18] LABS: CHLAMYDIA DNA AMPLIFICATION NEGATIVE (NEGATIVE); GC DNA AMPLIFICATION NEGATIVE (NEGATIVE)
[2018-10-29 00:06] LABS: ANA (HEP2) Negative (.); ANTI DS-DNA AB <1:10 titer (.); CYCLIC CITRULLINATED PEPTIDE 3 units (0-19); RNP ANTIBODY < 0.2 AI (0.0-0.9); SMITHS ANTIBODY < 0.2 AI (0.0-0.9); SSA SJOGRENS A <0.2 AI (0.0-0.9); SSB SJOGRENS B <0.2 AI (0.0-0.9)
== END ==
LOC: M SFHCPLAZ 10:51
PROVIDERS: ATTEND Internal Medicine Rheumatology
DX: R53.1 Weakness (principal); L40.50 Arthropathic psoriasis, unspecified; Z79.899 Other long term (current) drug therapy

== ENCOUNTER → 2018-10-22 | Outpatient (CLI) | payer OTHER ==
--- NOTE | 2018-10-23 02:15 | REP ---
Clinical: Psoriatic arthritis. Technique: AP and bilateral oblique views of the sacroiliac joints. Findings: The bilateral sacroiliac joints are essentially normal for age. No significant periarticular sclerosis, effusion, or osteophyte formation is appreciated. Impression: Age-appropriate sacroiliac joints. Electronically Signed by Ramon Noyola MD 10/23/2018 02:07 A
--- NOTE | 2018-10-23 02:19 | REP ---
Clinical: Psoriatic arthritis. Technique: AP, lateral, bilateral oblique views of the right and left hand. Findings: The joint spaces are relatively normal for age and symmetric bilaterally. No significant osteoarthritic or inflammatory arthritic changes are appreciated. The joint spaces are maintained and there is no periarticular erosive changes, loose bodies, significant swelling, osteophytosis, or subchondral heterogeneity/cystic changes. Impression: Essentially age-appropriate bilateral hand radiograph series. Electronically Signed by Ramon Noyola MD 10/23/2018 02:11 A
--- NOTE | 2018-10-23 02:32 | REP ---
Clinical: Psoriatic arthritis. Technique: AP, lateral, bilateral oblique views of the right and left foot. Findings: Right foot demonstrates mild degenerative changes involving the first toe including the tarsometatarsal, metatarsophalangeal and interphalangeal joint including subchondral sclerosis, minimal joint space narrowing, spurring/osteophyte formation. Subchondral sclerosis and cortical irregularity also involving the navicular bone and associated joint spaces. The interphalangeal joints as well as the second through fifth metatarsophalangeal joints appear relatively normal for age. No periarticular erosive changes, loose bodies, or significant swelling appreciated. No acute fracture dislocation. Small calcaneal heal spur. Left foot demonstrates mild degenerative changes involving the first toe including the tarsometatarsal, metatarsophalangeal and interphalangeal joint including subchondral sclerosis, minimal joint space narrowing, spurring/osteophyte formation. Subchondral sclerosis and cortical irregularity also involving the navicular bone and associated joint spaces. The interphalangeal joints as well as the second through fifth metatarsophalangeal joints appear relatively normal for age. No periarticular erosive changes, loose bodies, or significant swelling appreciated. No acute fracture dislocation. Small calcaneal heal spur. Impression: 1. 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 2. No significant inflammatory arthritic changes are appreciated. Electronically Signed by Ramon Noyola MD 10/23/2018 02:24 A
--- NOTE | 2018-10-23 02:37 | REP ---
Clinical: Psoriatic arthritis. Technique: AP, lateral, bilateral oblique and coned-down views of the lumbosacral spine. Findings: Alignment and lordosis maintained. Vertebral bodies are intact and there is no acute fracture / compression injury or subluxation. Mild multilevel degenerative changes include endplate sclerosis with early marginal spurring and mild hypertrophic facet change. Impression: Mild multilevel degenerative spondylosis. Electronically Signed by Ramon Noyola MD 10/23/2018 02:29 A
== END ==
LOC: M LRY 10:52
PROVIDERS: ATTEND Internal Medicine Rheumatology
DX: M19.071 Primary osteoarthritis, right ankle and foot (principal); M19.072 Primary osteoarthritis, left ankle and foot; M47.817 Spondylosis without myelopathy or radiculopathy, lumbosacral region

== ENCOUNTER → 2018-10-24 | Outpatient (CLI) | payer OTHER ==
[2018-10-24 19:23] LABS: BASO % 0.1 % (0.0-1.0); EOS % 0.4 % (0.0-3.0); HEMATOCRIT 41.7 % (42.0-52.0); HEMOGLOBIN 13.2 g/dl (13.5-17.5); LYMPH # 0.4 10^3/uL (1.5-4.5); LYMPH % 3.2 % (24.0-44.0); MEAN CORPUSCULAR HEMOGLOBIN 29.6 pg (27.0-33.0); MEAN CORPUSCULAR HGB CONC 31.7 g/dl (32.0-36.5); MEAN CORPUSCULAR VOLUME 93.5 fl (80.0-96.0); MONO # 0.3 10^3/uL (0.0-0.8); MONO % 2.3 % (0.0-5.0); NEUTROPHILS # 10.3 10^3/uL (1.8-7.7); NEUTROPHILS % 93.1 % (36.0-66.0); PLATELET COUNT, AUTOMATED 266 10^3/uL (150-450); RED BLOOD COUNT 4.46 10^6/uL (4.30-6.10); WHITE BLOOD COUNT 11.1 10^3/uL (4.0-10.0)
[2018-10-24 19:49] LABS: ERYTHROCYTE SEDIMENTATION RATE 52 mm/hr (0-15)
[2018-10-29 14:10] LABS: HLA-B27 Negative (.)
== END ==
LOC: M LRY 11:59
PROVIDERS: ATTEND Internal Medicine Rheumatology
DX: L40.50 Arthropathic psoriasis, unspecified (principal)

== ENCOUNTER → 2018-11-06 | Outpatient (CLI) | payer OTHER ==
[2018-11-06 19:41] LABS: CLOSTRIDIUM DIFFICILE PCR NEGATIVE (NEGATIVE)
== END ==
LOC: M LRY 10:53
PROVIDERS: ATTEND Internal Medicine Gastroenterology
DX: K52.9 Noninfective gastroenteritis and colitis, unspecified (principal); K50.818 Crohn's disease of both small and large intestine with other complication; R19.7 Diarrhea, unspecified

== ENCOUNTER 2018-11-14 14:24 | Inpatient (IN) | payer OTHER ==
[~2018-11-14] VITALS: Ht 190.5 cm; Wt 101.6 kg
[2018-11-14] MEDS ORDERED: NS 1,000 ML IV ONE ×2 (15:00→15:45)
[2018-11-14 15:24] LABS: BASO # 0.1 10^3/uL (0.0-0.2); BASO % 0.5 % (0.0-1.0); EOS % 0.1 % (0.0-3.0); HEMATOCRIT 46.9 % (42.0-52.0); HEMOGLOBIN 16.3 g/dl (13.5-17.5); LYMPH # 1.1 10^3/uL (1.5-4.5); LYMPH % 8.7 % (24.0-44.0); MEAN CORPUSCULAR HEMOGLOBIN 30.2 pg (27.0-33.0); MEAN CORPUSCULAR HGB CONC 34.8 g/dl (32.0-36.5); MONO # 0.6 10^3/uL (0.0-0.8); MONO % 4.4 % (0.0-5.0); NEUTROPHILS # 10.6 10^3/uL (1.8-7.7); NEUTROPHILS % 84.3 % (36.0-66.0); PLATELET COUNT, AUTOMATED 360 10^3/uL (150-450); RED BLOOD COUNT 5.39 10^6/uL (4.30-6.10); WHITE BLOOD COUNT 12.6 10^3/uL (4.0-10.0)
[2018-11-14 15:26] LABS: VENOUS BASE EXCESS -11.5 (-2.0-2.0); VENOUS HCO3 12.7 MEQ/L (23.0-27.0); VENOUS O2 SATURATION 97.8 % (60.0-80.0); VENOUS PARTIAL PRESSURE CO2 25.8 mmHg (38.0-50.0); VENOUS PARTIAL PRESSURE O2 100.7 mmHg (30.0-50.0); VENOUS STANDARD HCO3 15.7 MEQ/L; VENOUS TOTAL CO2 13.5 MEQ/L (24.0-28.0)
[2018-11-14] MEDS ORDERED: ACETAMINOPHEN 325 MG TAB PO ONE (15:45)
[2018-11-14 16:02] LABS: ALBUMIN 3.2 GM/DL (3.2-5.2); ALT/SGPT 41 U/L (12-78); BILIRUBIN,DIRECT 0.2 MG/DL (0.0-0.2); BILIRUBIN,TOTAL 0.6 MG/DL (0.2-1.0); BLOOD UREA NITROGEN 19 MG/DL (7-18); CARBON DIOXIDE LEVEL 13 MEQ/L (21-32); CHLORIDE LEVEL 112 MEQ/L (98-107); CK-MB VALUE MASS < 1.0 NG/ML (<3.6); CPK CREATINE PHOSPHOKINASE 20 U/L (39-308); CREATININE FOR GFR 1.24 MG/DL (0.70-1.30); GLOMERULAR FILTRATION RATE > 60.0 (>56); GLUCOSE, FASTING 121 MG/DL (70-100); LIPASE 120 U/L (73-393); MAGNESIUM LEVEL 2.2 MG/DL (1.8-2.4); POTASSIUM SERUM 3.7 MEQ/L (3.5-5.1); SODIUM LEVEL 134 MEQ/L (136-145); TOTAL PROTEIN 6.6 GM/DL (6.4-8.2); TROPONIN I < 0.02 NG/ML (< 0.10)
[2018-11-14] MEDS ORDERED: ISOVUE-370 76% 100ML VIAL (Q9967) As Ordered ONE (16:12)
--- NOTE | 2018-11-14 16:20 | REP ---
Clinical: Left lower extremity pain and swelling . Technique: De La Vega scale and color Doppler evaluation using linear high frequency transducer. Findings: Ultrasound examination of the left lower extremity deep venous structures from the common femoral vein to the popliteal vein demonstrates normal compressibility flow and wave patterns in response to respiration and augmentation. There is no evidence for deep venous thrombosis. Impression: No evidence for deep venous thrombosis. Electronically Signed by Ramon Noyola MD 11/14/2018 04:11 P
[2018-11-14] MEDS ORDERED: MULT-40 PO (16:43)
[2018-11-14] MEDS ORDERED: CVS1CAP2 PO (16:43)
[2018-11-14] MEDS ORDERED: ACET1TAB55 PO (16:43)
[2018-11-14] MEDS ORDERED: BUDE3CAP PO (16:43)
[2018-11-14] MEDS ORDERED: PRED20TA PO (16:43)
[2018-11-14] MEDS ORDERED: LOPE2TAB11 PO (16:43)
[2018-11-14] MEDS ORDERED: QC F0.52 PO ×2 (16:43)
[2018-11-14] MEDS ORDERED: SULF500T2 PO (16:43)
[2018-11-14] MEDS ORDERED: HUMI40KI2 SC (16:43)
--- NOTE | 2018-11-14 16:50 | REP ---
Clinical: Shortness of breath. Technique: Axial contrast enhanced images from the thoracic inlet to the upper abdomen with coronal and sagittal re-formations using pulmonary embolus technique with 100 ml Isovue 370 intravenous contrast material. Findings: Satisfactory enhancement of the pulmonary vasculature is achieved and no filling defects are identified to suggest pulmonary embolus. Thoracic aorta and heart/pericardium are normal. Lung sahu demonstrate subtle ill-defined infiltrates primarily noted in the left lung and to a lesser extent the right base along with few scattered right middle lobe and left lung pulmonary cysts/cavitations suggesting septic emboli and multifocal pneumonia. No effusion. No pneumothorax. Tracheobronchial tree is patent. No significant adenopathy. Musculoskeletal structures are intact. Impression: 1. No pulmonary embolus. 2. Subtle areas of infiltrate scattered within the left upper lobe and left lower lobe and to a much lesser extent the right lung base with few scattered right middle lobe and left sided pulmonary cysts/cavitation as measuring up to 2.1 cm. Findings most compatible with multifocal pneumonia and septic emboli. Electronically Signed by Ramon Noyola MD 11/14/2018 04:41 P
--- NOTE | 2018-11-14 16:50 | ECGEPIP ---
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
--- NOTE | 2018-11-14 16:54 | REP ---
Clinical: Chest and abdominal pain. Technique: Axial contrast enhanced images from the lung bases to the pubic symphysis using 100 ml Isovue 370 intravenous contrast material with coronal and sagittal re-formations. Findings: Lung bases suggest scattered small areas of multifocal pneumonia along with few scattered cavitary lesions up to 2.1 cm raising the possibility of septic emboli. Diffuse fluid filled small and large bowel throughout the abdomen and pelvis most compatible with enterocolitis and correlation is recommended. Associated mildly prominent but not enlarged lymph nodes throughout the mesentery likely represent reactive change. No bowel obstruction. No ascites. No free air. Hepatic steatosis without focal hepatic lesion. Spleen, pancreas, gallbladder, bilateral adrenal glands and kidneys are normal. Pelvis demonstrates normal bladder and age appropriate prostate/seminal vesicles. No ascites. No retroperitoneal adenopathy. Abdominal aorta without aneurysm or dissection. Musculoskeletal structures demonstrate age-related degenerative changes without focal osseous abnormality. Impression: Diffusely fluid-filled small and large bowel suggesting enterocolitis. Hepatic steatosis. Electronically Signed by Ramon Noyola MD 11/14/2018 04:45 P
[2018-11-14] MEDS ORDERED: ALBUTEROL SULFATE 2.5 MG/0.5 ML INH NEB SOLN NEB PRN (17:15)
[2018-11-14] MEDS ORDERED: LOPERAMIDE 2 MG CAP PO PRN (17:15)
[2018-11-14 18:30] VITALS: BP 120/80
[2018-11-14] MEDS ORDERED: methylPREDNISolone INJ 125 MG/2 ML VIAL (J2930) IV ONE (19:45)
[2018-11-14] MEDS ORDERED: VANCOMYCIN HCL 1,000 MG, VIAL MATE ADAPTER 1 EACH in D5W 250 ML IV ONE (20:00)
--- NOTE | 2018-11-14 20:03 | HPEPDOC ---
General Date of Admission Nov 14, 2018 at 17:08 Date of Service: Nov 14, 2018 Chief Complaint The patient is a 48-year-old male admitted with a reason for visit of Diarrhea,Metabolic Acidosis With Normal Anion Gap. History of Present Illness 48m hx of asthma, previous treated for psoriatic arthritis with enbrel which was stopped in august, admission in september for severe diarrhea which started after a colonoscopy, that stay was complicated by sergio, metabolic acidosis, and mssa pneumonia. He had a colonscopy which showed evidence of severe inflammation in the colon and ileum and he was felt to have crohns disease. He was treated with steroids and sulfasalazine with improvement and dced home. He now reports having severe diarrhea again for the past week. He describes about 8 watery BMs per day. The past two days he also is feeling sob. He denies fevers, cough, rash, arthralgias and night sweats. Home Medications Scheduled Adalimumab (Humira Pen) Unknown Strength Pen.ij.kit, Unknown Dose SC Q2WK, (Reported) PATIENT HAS NOT STARTED THIS MEDICATION - DUE TO BEGIN 11/23/18 Budesonide (Budesonide EC) 3 Mg Capdr...er, 9 MG PO DAILY, (Reported) Lactobacillus Combo No.10 (Probiotic) 1 Each Capsule, 1 CAP PO DAILY, (Reported) Multivitamin (Multivitamins) 1 Each Tablet, 1 TAB PO DAILY, (Reported) Prednisone (Prednisone) 20 Mg Tablet, 20 MG PO DAILY, (Reported) Psyllium Husk (Fiber) 0.52 Gm Capsule, 0.52 GM PO BID, (Reported) Sulfasalazine (Sulfasalazine) 500 Mg Tablet, 1,500 MG PO BID, (Reported) Scheduled PRN Acetaminophen (Acetaminophen) 325 Mg Tablet, 650 MG PO Q6H PRN for PAIN, (Reported) Albuterol Sulfate (Proair Hfa) 8.5 Gm Hfa.aer.ad, 2 PUFF INH Q4H PRN for SHORTNESS OF BREATH, (Reported) Loperamide HCl (Imodium A-D) 2 Mg Tablet, 4 MG PO Q4H PRN for DIARRHEA, (Reported) PATIENT MAY TAKE UP TO 6 TABS Q4H Psyllium Husk (Fiber) 0.52 Gm Capsule, 0.52 GM PO DAILY PRN for DIARRHEA, (Repor bay) TAKES A THIRD TIME IF NEEDED Allergies Coded Allergies: epinephrine (Verified Adverse Reaction, Intermediate, HIGH DOSE EPI - SEVERE SVT, 09/08/18) latex (Verified Adverse Reaction, Intermediate, Itching, 11/14/18) Pt states sensitivity to latex gloves. Gloves caused itching. codeine (Verified Adverse Reaction, Mild, hallucinations, 09/08/18) Past Medical History Medical History as above Family History Significant Family History: Cancer Social History * Smoker: Denies Alcohol: rarely Drugs: denies A-FIB/CHADSVASC A-FIB History Current/History of A-Fib/PAF?: No Current PO Anticoag Therapy: No Age/Risk Factor Scoring CHADSVASC: CHADSVASC Response (Comments) Value Age Risk Factor Age < 65 years old 0 Gender Risk Factor Male 0 Hx of CHF No 0 Hx of HTN No 0 Hx of Stroke/TIA/or VTE No 0 Hx of Diabetes No 0 Hx of Vascular Disease No 0 Total 0 Treatment Treatment ordered: NONE Review of Systems Constitutional: Denies: Fever, Night Sweats Eyes: Denies: Pain, Vision change ENT: Denies: Head Aches, Ear Pain, Dysphagia Skin: Denies: Rash, Lesions, Breakdown Pulmonary: Reports: Dyspnea; Denies: Cough Cardiovascular: Denies: Chest Pain, Palpitations, Orthopnea, Paroxysmal Noc. Dyspnea, Lt Headedness Gastrointestinal: Reports: Diarrhea Genitourinary: Denies: Dysuria, Frequency, Incontinence, Retention Hematologic: Denies: Bruising, Bleeding Excessively Musculoskeletal: Denies: Neck Pain, Back Pain, Joint Pain, Muscle Pain, Spasms Neurological: Denies: Weakness, Numbness, Change in speech, Confusion Psych: Reports: Mood Normal; Denies: Depression, Memory Issues Physical Examination General Exam: Positive: Alert, Cooperative, No Acute Distress Eye Exam: Positive: PERRLA, Conjunctiva & lids normal, EOMI ENT Exam: Positive: Atraumatic; Negative: Mucous membr. moist/pink Neck Exam: Positive: Supple; Negative: JVD, thyromegaly Chest Exam: Positive: Clear to auscultation, Normal air movement Heart Exam: Positive: Rate Normal, Regular Rhythm, Normal S1, Normal S2; Negative: Murmurs Abdomen Exam: Positive: Soft; Negative: Tenderness Extremity Exam: Negative: Edema Skin Exam: Positive: Nl turgor and temperature; Negative: Breakdown, Lesion Neuro Exam: Positive: Normal Gait, Normal Speech, Cranial Nerves 3-12 NL, Reflexes 2+ Psych Exam: Positive: Mental status NL, Mood NL, Oriented x 3 Vital Signs Vital Signs Date Time Temp Pulse Resp B/P (MAP) Pulse Ox O2 Delivery O2 Flow Rate FiO2 11/14/18 18:45 97.4 11/14/18 18:30 73 18 120/80 (93) 99 11/14/18 17:30 Room Air Laboratory Data Labs 24H Laboratory Tests 2 11/14/18 15:11: Immature Granulocyte % (Auto) 2.0, White Blood Count 12.6H, Red Blood Count 5.39, Hemoglobin 16.3, Hematocrit 46.9, Mean Corpuscular Volume 87.0, Mean Corpuscular Hemoglobin 30.2, Mean Corpuscular Hemoglobin Concent 34.8, Red Cell Distribution Width 14.2, Platelet Count 360, Neutrophils (%) (Auto) 84.3H, Lymphocytes (%) (Auto) 8.7L, Monocytes (%) (Auto) 4.4, Eosinophils (%) (Auto) 0.1, Basophils (%) (Auto) 0.5, Neutrophils # (Auto) 10.6H, Lymphocytes # (Auto) 1.1L, Monocytes # (Auto) 0.6, Eosinophils # (Auto) 0.0, Basophils # (Auto) 0.1, Nucleated Red Blood Cells % (auto) 0.0, Blood Gas Bicarbonate Standard 15.7, Venous Blood pH 7.310L, Venous Blood Partial Pressure CO2 25.8L, Venous Blood Partial Pressure O2 100.7H, Venous Blood Total Carbon Dioxide 13.5L, Venous Blood HCO3 12.7L, Venous Blood Oxygen Saturation 97.8H, Venous Blood Base Excess -11.5L, Anion Gap 9, Glomerular Filtration Rate > 60.0, Lactic Acid Level 1.1, Calcium Level 8.0L, Magnesium Level 2.2, Aspartate Amino Transf (AST/SGOT) 21, Alanine Aminotransferase (ALT/SGPT) 41, Alkaline Phosphatase 115, Total Bilirubin 0.6, Direct Bilirubin 0.2, Total Creatine Kinase 20L, Creatine Kinase MB < 1.0, Creatine Kinase MB Relative Index 5.00H, Troponin I < 0.02, Total Protein 6.6, Albumin 3.2, Albumin/Globulin Ratio 0.94L, Lipase 120 CBC/BMP Laboratory Tests 11/14/18 15:11 Red Blood Count 5.39, Mean Corpuscular Volume 87.0, Mean Corpuscular Hemoglobin 30.2, Mean Corpuscular Hemoglobin Concent 34.8, Red Cell Distribution Width 14.2, Neutrophils (%) (Auto) 84.3 H, Lymphocytes (%) (Auto) 8.7 L, Monocytes (%) (Auto) 4.4, Eosinophils (%) (Auto) 0.1, Basophils (%) (Auto) 0.5, Neutrophils # (Auto) 10.6 H, Lymphocytes # (Auto) 1.1 L, Monocytes # (Auto) 0.6, Eosinophils # (Auto) 0.0, Basophils # (Auto) 0.1 Microbiology Microbiology 11/14/18 Blood Culture, Received Pending 11/14/18 Blood Culture, Received Pending Assessment/Plan 48m with recent diagnosis of inflammatory bowel disease, pneumonia, p/w severe diarrhea diarrhea found to have "crohns like" IBD started on prednisone and budesonide and sulfasalazine with improvement for a few weeks diarrhea has recurred apparently after lowering steroids considering adding high dose steroids again Dr Seo consulted gi panel pending metabolic acidosis normal anion gap due to diarrhea replace bicarb dyspnea likely due to acidosis however cta revealed ggos and cavitary lesions broad differential of possibilities pt does not appear toxic favoring against acute infections echo ordered given possibility of septic emboli given recent hx of staph pneumonia will treat with vanco and zosyn sputum cx check infectious markers, procal, beta d glucan, galactomannan pulmonary consulted may need bronch Plan / VTE VTE Prophylaxis Ordered?: Yes PEPE BARKSDALE MD Nov 14, 2018 20:03
[2018-11-14] MEDS: SODIUM BICARBONATE 150 MEQ in D5W 1,000 ML IV SCH (21:02)
[2018-11-14] MEDS: METAMUCIL (PSYLLIUM) PACKET PO SCH (21:02)
[2018-11-14] MEDS: LACTOBACILLUS ACIDOPHILUS CAP (BACID) PO SCH (21:03)
[2018-11-14] MEDS: sulfaSALAzine 500 MG TABEC PO SCH (21:03)
[2018-11-14 22:00] VITALS: BP 139/89
[2018-11-14] MEDS: PIPERACILLIN/TAZOBACTAM SOD 4.5 GM in D5W MINI-BAG PLUS 50 ML IV SCH (23:25)
[2018-11-14] MEDS: ACETAMINOPHEN TAB 650MG DOSE (2X325MG) PO PRN (23:30)
[2018-11-15] MEDS ORDERED: CALCIUM CARBONATE 500 MG CHEW U/D PO PRN (00:15)
[2018-11-15] MEDS: VANCOMYCIN HCL 1,000 MG, VIAL MATE ADAPTER 1 EACH in D5W 250 ML IV SCH ×2 (00:36→10:00)
--- NOTE | 2018-11-15 00:47 | PHACANCOPD ---
PHARMACY VANCOMYCIN DOSING Pt Demographics Demographics Patient Age:48 , Weight:101.600 , Gender: male Adjusted Body Weight Date: 11/15/18, Adjusted Body Weight: [91.34] Kg Vancomycin Vancomycin indication: CAVITARY LUNG LESION-HX STAPH Vancomycin Target Ranges: 15-20 mcg/ml Vancomycin Load Y/N: No Load Dose Date Time Vancomycin Load Dose: Date: Time: Vancomycin Dose Date: 11/15/18. Current Vancomycin Dose: [1GM@21,THEN Q8H@12MID] Intermittent Dosing?: No Labs Labs Laboratory Tests 11/14/18 15:11 Red Blood Count 5.39, Mean Corpuscular Volume 87.0, Mean Corpuscular Hemoglobin 30.2, Mean Corpuscular Hemoglobin Concent 34.8, Red Cell Distribution Width 14.2, Neutrophils (%) (Auto) 84.3 H, Lymphocytes (%) (Auto) 8.7 L, Monocytes (%) (Auto) 4.4, Eosinophils (%) (Auto) 0.1, Basophils (%) (Auto) 0.5, Neutrophils # (Auto) 10.6 H, Lymphocytes # (Auto) 1.1 L, Monocytes # (Auto) 0.6, Eosinophils # (Auto) 0.0, Basophils # (Auto) 0.1 Micro Microbiology 11/14/18 Blood Culture, Received Pending 11/14/18 Blood Culture, Received Pending 11/14/18 Gastrointestinal Tract Panel (PCR) - Final, Complete Creatinine Clearance Date:11/15/18. Creatinine Clearance: [92.1].CALCULATED Assessment and Plan Maintaining Current Dose?: Yes Reason for dose change: No Dose Change Pharmacist Note Pharmacist Note Date: 11/15/18. Pharmacist note: 48YOM Admitted w/cavitary lung lesi on.SCR=1.24,CRCL=92.1Calculated.,Allergies:latex,Codeine,Epinephrine .To receive Pip/Tazo 4.5 grams IV K5Egiip and Pharmacy dosed Vancomycin. Vanco 1 gram administered 11/14@2100, then will begin 1 gram IV Q8Hour regimen 11/15@12 mid. First trough is scheduled for 11/15@1500-prior to the 4th dose)-Will continue to follow labs and will make dose adjustments as needed [facility] Nov 15, 2018 00:47
[2018-11-15] MEDS ORDERED: VANCOMYCIN HCL 1,000 MG, VIAL MATE ADAPTER 1 EACH in D5W 250 ML IV SCH (01:00)
[2018-11-15] MEDS: PIPERACILLIN/TAZOBACTAM SOD 4.5 GM in D5W MINI-BAG PLUS 50 ML IV SCH ×2 (04:31→11:33)
[2018-11-15 06:00] VITALS: BP 119/76
[2018-11-15] MEDS: ACETAMINOPHEN TAB 650MG DOSE (2X325MG) PO PRN ×2 (06:25→21:21)
[2018-11-15 06:57] LABS: HEMATOCRIT 42.6 % (42.0-52.0); HEMOGLOBIN 14.5 g/dl (13.5-17.5); MEAN CORPUSCULAR HEMOGLOBIN 28.7 pg (27.0-33.0); MEAN CORPUSCULAR VOLUME 84.2 fl (80.0-96.0); PLATELET COUNT, AUTOMATED 312 10^3/uL (150-450); RED BLOOD COUNT 5.06 10^6/uL (4.30-6.10); WHITE BLOOD COUNT 10.9 10^3/uL (4.0-10.0)
[2018-11-15 07:38] LABS: BLOOD UREA NITROGEN 15 MG/DL (7-18); CALCIUM LEVEL 7.6 MG/DL (8.5-10.1); CARBON DIOXIDE LEVEL 16 MEQ/L (21-32); CHLORIDE LEVEL 108 MEQ/L (98-107); CREATININE FOR GFR 0.95 MG/DL (0.70-1.30); GLOMERULAR FILTRATION RATE > 60.0 (>56); GLUCOSE, FASTING 97 MG/DL (70-100); POTASSIUM SERUM 2.5 MEQ/L (3.5-5.1); SODIUM LEVEL 135 MEQ/L (136-145)
[2018-11-15] MEDS: KCL 10MEQ/100ML SWI (KRUN) 10 MEQ in APPROPRIATE DILUENT 1 EA IV SCH ×2 (08:39→10:00)
[2018-11-15] MEDS: sulfaSALAzine 500 MG TABEC PO SCH (08:40)
[2018-11-15] MEDS: ENOXAPARIN 40 MG/0.4 ML SYRINGE (J1650) SC SCH (08:40)
[2018-11-15] MEDS: MULTIVITAMINS/MINERALS THERAP 1 TAB PO SCH (08:41)
[2018-11-15] MEDS: POTASSIUM CHLORIDE 10 MEQ SR TABLET PO SCH ×2 (08:41→11:34)
[2018-11-15] MEDS: LACTOBACILLUS ACIDOPHILUS CAP (BACID) PO SCH ×2 (08:41→21:19)
[2018-11-15] MEDS: METAMUCIL (PSYLLIUM) PACKET PO SCH ×2 (08:41→21:19)
[2018-11-15] MEDS ORDERED: BUDESONIDE EC 3 MG CAP (ENTOCORT EC) PO SCH (09:00)
[2018-11-15] MEDS ORDERED: predniSONE 20 MG TAB PO SCH ×2 (09:00)
[2018-11-15] MEDS: LOMOTIL 2.5MG/0.025MG TABLET PO SCH ×4 (09:00→21:19)
[2018-11-15] MEDS: SODIUM BICARBONATE 325 MG TAB PO SCH ×4 (09:00→21:20)
[2018-11-15] MEDS: SODIUM BICARBONATE 150 MEQ in D5W 1,000 ML IV SCH (10:50)
[2018-11-15] MEDS: PINK BISMUTH SUSP 524MG/30ML ORAL SYRINGE PO SCH ×3 (11:34→23:52)
[2018-11-15] MEDS ORDERED: methylPREDNISolone INJ 125 MG/2 ML VIAL (J2930) IV SCH (12:00)
[2018-11-15] MEDS ORDERED: predniSONE 10 MG TAB PO ONE (13:00)
[2018-11-15] MEDS: MESALAMINE 250 MG CR CAP PO SCH ×3 (13:47→23:52)
[2018-11-15 14:00] VITALS: BP 120/79
--- NOTE | 2018-11-15 14:13 | CR ---
DATE OF CONSULTATION: 11/15/2018 HISTORY OF PRESENT ILLNESS: The patient is a 48-year-old male with a history of psoriatic arthritis and asthma who had previously presented with an admission in September with the complaint of profuse watery diarrhea. He had evaluation done at that time with cultures and a gastrointestinal (GI) panel for infectious etiology, which was negative. He also had an esophagogastroduodenoscopy (EGD) and colonoscopy done, which on biopsy showed evidence of acute on chronic inflammation with cryptitis possibly secondary to an inflammatory bowel disease such as Crohn's. He was started on high doses of steroids and psyllium with improvement in his diarrhea. During that admission, he also had acute hypoxic respiratory failure requiring nasal cannula oxygen supplementation as well as a non-anion gap metabolic acidosis secondary to the bicarbonate loss from his diarrhea. He was also treated for a possible pneumonia as well given he developed a new infiltrate in the left base of his lung and he had increasing leukocytosis and procalcitonin is consistent with a bacterial etiology. His sputum cultures during that admission were positive for Staphylococcus (Staph) aureus . He was treated with antibiotics and he was able to be weaned off of the nasal cannula oxygen to room air. He did require some Lasix for diuresis as he had also been given aggressive fluid hydration with his diarrhea. The patient was discharged from that admission on prednisone and sulfasalazine. He presents now, however with a complaint of increasing diarrhea for the past week. The patient had been has been having 8-10 very watery stools. He denies any blood in the stool. He does have some cramping when he has his bowel movements, but otherwise denies significant abdominal pain. Has not had any nausea or vomiting. In the past 2 days, he has also noted some increased shortness of breath with exertion. The patient denied any fevers or chills. No night sweats. No arthralgias or rashes. He does have a history of weight loss, which has been since his previous admission and hospitalization. PAST MEDICAL HISTORY: As above. PAST SURGICAL HISTORY: As above. HOME MEDICATIONS: - budesonide - lactobacillus - multivitamin - prednisone 20 mg daily - psyllium husk (sulfasalazine) 1500 mg by mouth twice a day - (previously has been on Humira, was held since his last admission) - loperamide as needed - albuterol as needed ALLERGIES: To EPINEPHRINE, LATEX, and CODEINE. FAMILY HISTORY: Cancer in the family. FAMILY/SOCIAL HISTORY: Denies any smoking history. Rare alcohol use. No other drug use. PHYSICAL EXAMINATION: Temperature 97.4, pulse 66, respirations 18, blood pressure 119/76, oxygen saturation 97% on room air. General: The patient is alert and oriented, appears well-nourished, is not in any acute respiratory distress. Is able to speak in complete sentences. HEENT: Normocephalic, atraumatic. Dry mucous membranes. Neck is supple. No palpable adenopathy Cardiovascular: Regular rate and rhythm. Normal S1, S2. No murmurs appreciated. Pulmonary: Clear to auscultation bilaterally. No wheezes, rales, or rhonchi. Abdomen is soft, nondistended. Mild tenderness to palpation. Extremities: There is no lower extremity edema noted bilaterally. LABORATORY DATA: WBC 10.9, hemoglobin 14.5, platelets 312. Chemistry: Sodium is 135, potassium 2.5, chloride is 108, bicarbonate is 16, BUN is 15, creatinine is 0.95, glucose is 97, CRP 0.30. MICROBIOLOGY; GI panel was negative. Blood cultures results are pending. Sputum culture is pending. IMAGING: CT angiogram done 11/14/2018 showed no evidence of pulmonary embolism (PE). In the lung parenchyma, in right lower lobe there is a faint peripheral nodule as well as a possible cyst in the right lobe. In the right middle lobe there are some peripheral opacities with cavitation noted. In the left upper lobe there is mild tree-in-bud opacities as well as some ground-glass opacities in the lingula and fiber atelectatic changes in the lingula. In the left lower lobe there is some atelectasis but also some peripheral ground-glass and more solid opacities as well as a few larger cavitary lesions in the left lower lobe. There is no significant mediastinal or hilar adenopathy. CT abdomen and pelvis showed diffusely fluid filled small and large bowel segments suggesting anterior colitis. There is also evidence of hepatic steatosis. Vascular Ultrasound showed no evidence of deep venous thrombosis (DVT) bilaterally in the lower extremities. ASSESSMENT/PLAN: Mr. Garcia is a 48-year-old male with a history of asthma, psoriatic arthritis, previously on Enbrel with a recent admission for diarrhea with metabolic acidosis and a possible diagnosis of inflammatory bowel disease such as Crohn's who was treated with steroids and sulfasalazine. The patient presents now with worsening watery diarrhea for the past week. He also noted some increased shortness breath and dyspnea on exertion for the past 2 days. He, therefore had a CT angiogram done to evaluate for possible PE, which was negative. On the CT however, he was noted to have some ground-glass opacities more peripherally as well as some cavitating lesions more in the periphery and more in the left lower lobe. He did not have any fever on admission, had mild leukocytosis. His GI panel on admission was negative. Discussed with the patient the results of his imaging and that the differential currently for these lesions is still broad. Given his immunosuppressed state and appearance of cavitating peripheral nodules fungus such as Aspergillus is in differential. PCP is also possible but not as likely given radiographic findings. Also in the differential for peripheral cavitating lesions would be septic emboli. He has no fevers or chills and is not symptomatic, however, he has also been immunosuppressed. Atypical mycobacterium is also possibly in the differential as well. The patient denies any history of night sweats. No coughing, however. He is otherwise relatively asymptomatic from a respiratory standpoint. Also possible with inflammatory bowel disease is lung parenchymal involvement which can occasionally present as cavitating lesions which can mimic septic emboli or Judi's granulomatosis. As the patient is unable to provide any sputum samples as he does not have any significant coughing, he would need bronchoscopy with bronchoalveolar lavage (BAL) for evaluation for possible infectious etiology to send for cultures, AFB and fungal cultures. Would also check a cell count to evaluate for any eosinophilia as eosinophilic lung disease is possible with sulfasalazine but does not usually present with cavitating lesions. - Would make the patient nothing by mouth at midnight for possible add on bronchoscopy tomorrow. He will need followup imaging and depending on the findings at some point may need to biopsies of these lesions to rule out malignancy, although this is less likely. - Will check [id number] galactomannan, as well as n MARIELENA and ANCA screen. Will also check a procalcitonin. - Will followup with the results of his blood cultures and will also followup echo given concern for possible septic emboli. - The patient is on broad-spectrum antibiotics currently with Zosyn and vancomycin. He was also on prednisone previous to his admission, which was increased for possible flare of his inflammatory bowel disease. Given his immunosuppressed state, would also check for possible viral etiology such as a CMV colitis. - The patient continues to have non-anion gap acidosis secondary to his diarrhea. He is being repleted with bicarbonate. He will need aggressive electrolyte repletion. DVT prophylaxis with Lovenox. GI prophylaxis: Would start omeprazole given his chronic steroid use. FULL CODE. MTDD
[2018-11-15 14:21] LABS: BLOOD UREA NITROGEN 15 MG/DL (7-18); CALCIUM LEVEL 7.8 MG/DL (8.5-10.1); CARBON DIOXIDE LEVEL 17 MEQ/L (21-32); CHLORIDE LEVEL 108 MEQ/L (98-107); CREATININE FOR GFR 1.15 MG/DL (0.70-1.30); GLOMERULAR FILTRATION RATE > 60.0 (>56); GLUCOSE, FASTING 123 MG/DL (70-100); MAGNESIUM LEVEL 2.2 MG/DL (1.8-2.4); POTASSIUM SERUM 3.4 MEQ/L (3.5-5.1); SODIUM LEVEL 133 MEQ/L (136-145)
--- NOTE | 2018-11-15 15:07 | IPNPDOC ---
Subjective Date Seen The patient was seen on 11/15/18. Subjective Chief Complaint/HPI History of Present Illness 48m hx of asthma, previous treated for psoriatic arthritis with enbrel which was stopped in august, recent admission in september for severe diarrhea felt to be due to crohns now admitted with severe diarrhea, metabolic acidosis, and lung lesions. He continues to have diarrhea, but otherwise feels well. No pain, no fevers, no cough, no sob. a 10 pt review of systems was performed and negative with the exeption of the positives as documented in the above hpi Objective Physical Examination General Exam: Positive: Alert, Cooperative, No Acute Distress Eye Exam: Positive: PERRLA, Conjunctiva & lids normal, EOMI ENT Exam: Positive: Atraumatic; Negative: Mucous membr. moist/pink Neck Exam: Positive: Supple; Negative: JVD, thyromegaly Chest Exam: Positive: Clear to auscultation, Normal air movement Heart Exam: Positive: Rate Normal, Regular Rhythm, Normal S1, Normal S2; Negative: Murmurs Abdomen Exam: Positive: Soft; Negative: Tenderness Extremity Exam: Negative: Edema Skin Exam: Positive: Nl turgor and temperature; Negative: Breakdown, Lesion Neuro Exam: Positive: Normal Gait, Normal Speech, Cranial Nerves 3-12 NL, Reflexes 2+ Psych Exam: Positive: Mental status NL, Mood NL, Oriented x 3 Assessment /Plan Assessment 48m with recent diagnosis of inflammatory bowel disease, pneumonia, p/w severe diarrhea diarrhea found to have "crohns like" IBD started on prednisone and budesonide and sulfasalazine with improvement for a few weeks diarrhea has recurred apparently after lowering steroids iv steroids ordered Dr Seo following gi panel negative cmv ordered resumed lomotil and pepto hypokalemia due to both diarrhea and bicarb drip not tolerating iv runs repleting po will change fluids to include a low concentration of kcl as well metabolic acidosis normal anion gap due to diarrhea improving switch to oral repletion dyspnea likely due to acidosis however cta revealed ggos and cavitary lesions broad differential of possibilities pt does not appear toxic favoring against acute infections echo ordered given possibility of septic emboli given recent hx of staph pneumonia will treat with vanco and zosyn sputum cx check infectious markers, procal, beta d glucan, galactomannan pulmonary following bronch to be performed friday or friday Plan/VTE VTE Prophylaxis Ordered?: Yes VS, I&O, 24H, Daiana Vital Signs/I&O Vital Signs Date Time Temp Pulse Resp B/P (MAP) Pulse Ox O2 Delivery O2 Flow Rate FiO2 11/15/18 06:00 97.4 66 18 119/76 (90) 97 11/14/18 17:30 Room Air I&O- Last 24 Hours up to 6 AM 11/15/18 06:00 Intake Total 2780 ml Output Total 1000 ml Balance 1780 ml Laboratory Data 24H LABS Laboratory Tests 2 11/14/18 15:11: Immature Granulocyte % (Auto) 2.0, White Blood Count 12.6H, Red Blood Count 5.39, Hemoglobin 16.3, Hematocrit 46.9, Mean Corpuscular Volume 87.0, Mean Corpuscular Hemoglobin 30.2, Mean Corpuscular Hemoglobin Concent 34.8, Red Cell Distribution Width 14.2, Platelet Count 360, Neutrophils (%) (Auto) 84.3H, Lymphocytes (%) (Auto) 8.7L, Monocytes (%) (Auto) 4.4, Eosinophils (%) (Auto) 0.1, Basophils (%) (Auto) 0.5, Neutrophils # (Auto) 10.6H, Lymphocytes # (Auto) 1.1L, Monocytes # (Auto) 0.6, Eosinophils # (Auto) 0.0, Basophils # (Auto) 0.1, Nucleated Red Blood Cells % (auto) 0.0, Blood Gas Bicarbonate Standard 15.7, Venous Blood pH 7.310L, Venous Blood Partial Pressure CO2 25.8L, Venous Blood Partial Pressure O2 100.7H, Venous Blood Total Carbon Dioxide 13.5L, Venous Blood HCO3 12.7L, Venous Blood Oxygen Saturation 97.8H, Venous Blood Base Excess -11.5L, Anion Gap 9, Glomerular Filtration Rate > 60.0, Lactic Acid Level 1.1, Calcium Level 8.0L, Magnesium Level 2.2, Aspartate Amino Transf (AST/SGOT) 21, Alanine Aminotransferase (ALT/SGPT) 41, Alkaline Phosphatase 115, Total Bilirubin 0.6, Direct Bilirubin 0.2, Total Creatine Kinase 20L, Creatine Kinase MB < 1.0, Creatine Kinase MB Relative Index 5.00H, Troponin I < 0.02, Total Protein 6.6, Albumin 3.2, Albumin/Globulin Ratio 0.94L, Lipase 120 11/14/18 20:46: 11/15/18 06:07: Nucleated Red Blood Cells % (auto) 0.0, Anion Gap 11, Glomerular Filtration Rate > 60.0, Calcium Level 7.6L, Blood Urea Nitrogen 15, Creatinine 0.95, Sodium Level 135L, Potassium Level 2.5#*L, Chloride Level 108H, Carbon Dioxide Level 16L, C-Reactive Protein, Quantitative 0.30 11/15/18 13:42: Anion Gap 8, Glomerular Filtration Rate > 60.0, Calcium Level 7.8L, Magnesium Level 2.2, Blood Urea Nitrogen 15, Creatinine 1.15, Sodium Level 133L, Potassium Level 3.4#L, Chloride Level 108H, Carbon Dioxide Level 17L CBC/BMP Laboratory Tests 11/14/18 15:11 Red Blood Count 5.39, Mean Corpuscular Volume 87.0, Mean Corpuscular Hemoglobin 30.2, Mean Corpuscular Hemoglobin Concent 34.8, Red Cell Distribution Width 14.2, Neutrophils (%) (Auto) 84.3 H, Lymphocytes (%) (Auto) 8.7 L, Monocytes (%) (Auto) 4.4, Eosinophils (%) (Auto) 0.1, Basophils (%) (Auto) 0.5, Neutrophils # (Auto) 10.6 H, Lymphocytes # (Auto) 1.1 L, Monocytes # (Auto) 0.6, Eosinophils # (Auto) 0.0, Basophils # (Auto) 0.1 11/15/18 06:07 Red Blood Count 5.06, Mean Corpuscular Volume 84.2, Mean Corpuscular Hemoglobin 28.7, Mean Corpuscular Hemoglobin Concent 34.0, Red Cell Distribution Width 14.3, Calcium Level 7.6 L 11/15/18 13:42 Calcium Level 7.8 L Microbiology Microbiology 11/14/18 Blood Culture, Received Pending 11/14/18 Blood Culture, Received Pending 11/14/18 Gastrointestinal Tract Panel (PCR) - Final, Complete 11/15/18 MRSA Screen, Received Pending 11/15/18 Gram Stain - Final, Resulted 11/15/18 Sputum Culture, Resulted Pending PEPE BARKSDALE MD Nov 15, 2018 15:07
[2018-11-15] MEDS: KCL 20MEQ IN 0.45NS 1000ML 1,000 ML IV SCH (15:18)
[2018-11-15] MEDS: methylPREDNISolone INJ 40 MG/1 ML VIAL (J2920) IV SCH ×2 (17:15→23:52)
[2018-11-15] MEDS ORDERED: POTASSIUM CHLORIDE 10 MEQ SR TABLET PO SCH (21:00)
--- NOTE | 2018-11-15 21:33 | CR ---
DATE OF CONSULTATION: 11/15/2018 This is a 48-year-old white male who presents with a history of chronic history of diarrhea, which apparently started around 09/16/2018. The patient has had a previous diagnosis of psoriatic arthritis and was treated with Enbrel for about eight months. The patient began having diarrhea after an upper and lower endoscopy which was performed by Dr. Huber at that time. The patient developed severe diarrhea up to 5-10 times a day. Numerous studies, including multiple CAT scans and CT enterography, were not particularly helpful in making a diagnosis. Laboratory studies, including vasoactive intestinal peptide (VIP) levels, were negative. The patient's gastrin level was also checked, which was also within normal limits. The biopsies did return and suggested crypt abscesses and acute on chronic inflammation of the colon and terminal ileum. The patient had what was felt to be inflammatory bowel disease. The diagnosis of leaning towards Crohn's. He has no family history for Crohn's disease and never had any issues of chronic diarrhea until the beginning of September. There is no history of travel. Stool testing multiple times were negative for any parasites or Clostridium (C) difficile. Testing for celiac disease of also negative. The patient has lost over 50 pounds since the diarrhea started. He was sent home finally on steroids and Pentasa with some resolution and formation of his stools and unfortunately, over the last 7-10 days, his diarrhea has returned. Repeat testing has not shown any evidence for C-diff or any infections. MEDICATIONS AT HOME: - budesonide 9 mg a day - multivitamins - prednisone 20 mg a day - sulfasalazine 3000 mg a day - The patient was using loperamide as needed and a high-fiber diet. LABORATORY STUDIES: On this admission show a complete blood count (CBC) showed a white count of 12,600, hemoglobin and hematocrit (H and H) is 16.3 and 46.7. The patient's chemistry was ordered 11/14/2018 showed normal liver functions. Creatinine was 1.24, BUN is 19. The patient is albumin is 3.2. Lipase was normal 120. Serology testing is pending. Repeat imaging studies on this admission including abdominal CT showed liquid and air-fluid levels in the small bowel which was felt to be consistent with enterocolitis. PHYSICAL EXAMINATION: GENERAL: He is a well-developed, well-nourished white male in no obvious acute distress. Appears stated age. CHEST: Clear. ABDOMEN: Soft, nontender. No masses, guarding, rebound, hepatosplenomegaly. Bowel sounds are positive. ANALYSIS: Chronic diarrhea since 09/16/2018 of unknown etiology. At the present time, the patient's biopsies of colonoscopy plus ileoscopy suggested crypt abscesses and acute on chronic inflammation consistent with some form of inflammatory bowel disease. The patient either has Crohn's or an determine form of inflammatory bowel disease (IBD). PLAN: 1. Will be to try to treat this as inflammatory bowel disease with intravenous (IV) Solu-Medrol and will start Pentasa tablets. 2. The patient may have contracted the IBD from the eight months of Enbrel, which has been reported in the literature. Unfortunately, this may not be reversible, even though the drug has been stopped. The patient may need another anti-TNF and since the patient is having so many hospitalizations with diarrhea and hypokalemia, my recommendation would be to go with IV infusion starting with Remicade. We can start Remicade with a single dose as an attempt to rescue his colon from the inflammation, then continue with induction therapy. PLAN 1. IV Solu-Medrol. 2. Asacol 3 grams a day. 3. Lomotil on a scheduled basis while the patient has diarrhea. 4. High-fiber diet. 5. Will discuss with the patient the possibility of starting him on a another anti-TNF, such as Remicade. I will discuss this with the patient tomorrow. T
[2018-11-15 22:00] VITALS: BP 126/84
[2018-11-16] MEDS: MESALAMINE 250 MG CR CAP PO SCH ×4 (05:56→23:12)
[2018-11-16] MEDS: PINK BISMUTH SUSP 524MG/30ML ORAL SYRINGE PO SCH ×4 (05:56→23:09)
[2018-11-16] MEDS: methylPREDNISolone INJ 40 MG/1 ML VIAL (J2920) IV SCH ×4 (05:56→23:12)
[2018-11-16] MEDS: KCL 20MEQ IN 0.45NS 1000ML 1,000 ML IV SCH (05:57)
[2018-11-16 06:00] VITALS: BP 127/79
[2018-11-16 06:15] LABS: BASO % 0.2 % (0.0-1.0); HEMATOCRIT 41.8 % (42.0-52.0); HEMOGLOBIN 14.5 g/dl (13.5-17.5); LYMPH # 1.5 10^3/uL (1.5-4.5); MEAN CORPUSCULAR HEMOGLOBIN 28.9 pg (27.0-33.0); MEAN CORPUSCULAR HGB CONC 34.7 g/dl (32.0-36.5); MEAN CORPUSCULAR VOLUME 83.4 fl (80.0-96.0); MONO # 0.8 10^3/uL (0.0-0.8); MONO % 6.1 % (0.0-5.0); NEUTROPHILS % 81.1 % (36.0-66.0); PLATELET COUNT, AUTOMATED 319 10^3/uL (150-450); RED BLOOD COUNT 5.01 10^6/uL (4.30-6.10); WHITE BLOOD COUNT 13.6 10^3/uL (4.0-10.0)
[2018-11-16 06:19] LABS: INR 1.18; PARTIAL THROMBOPLASTIN TIME 24.7 SECONDS (25.0-38.4); PROTHROMBIN TIME 14.7 SECONDS (11.8-14.0)
[2018-11-16 06:35] LABS: BLOOD UREA NITROGEN 17 MG/DL (7-18); CALCIUM LEVEL 7.6 MG/DL (8.5-10.1); CARBON DIOXIDE LEVEL 18 MEQ/L (21-32); CHLORIDE LEVEL 109 MEQ/L (98-107); GLOMERULAR FILTRATION RATE > 60.0 (>56); GLUCOSE, FASTING 102 MG/DL (70-100); MAGNESIUM LEVEL 2.1 MG/DL (1.8-2.4); POTASSIUM SERUM 3.3 MEQ/L (3.5-5.1); SODIUM LEVEL 138 MEQ/L (136-145)
--- NOTE | 2018-11-16 06:38 | ECHO ---
DATE OF PROCEDURE: 11/15/2018 DATE OF : 1970 AGE: 48 REFERRING PHYSICIAN: Dr. Sujit Marshall ROOM #: [id number] REASON FOR ECHOCARDIOGRAM: Sepsis. 2-D MEASUREMENTS: IVS: 1.0 cm LV: 4.3 cm LVPW: 1.2 cm LA: 3.6 cm Aorta: 3.5 cm DOPPLER MEASUREMENTS: Peak velocity across the aortic valve: 1.2 m/s Peak velocity across the LVOT: 1.1 m/s Mitral E: 0.54 Mitral A: 0.55 Ratio: Less than 1.0 Maximum tricuspid valve velocity: 2.4 m/s 2-D COMMENTS: 1. Normal left ventricular size, wall thickness but with a moderately depressed global left ventricular systolic function. The estimated global left ventricular systolic ejection fraction is 35-40%. The anterior septum mid and basal portion appeared to be akinetic. 2. Normal left atrium. Normal right atrium and right ventricle. 3. The atrial septum appeared to be normal without evidence of defect or shunt. 4. Normal aortic root. 5. No pericardial effusion seen. 6. Minimally calcified aortic valve with normal leaflet excursion. Minimally calcified mitral annulus with normal anterior mitral valve leaflet motion. Normal tricuspid valve. The pulmonic valve and proximal pulmonary artery branches were not well visualized. 7. The inferior vena cava was not visualized. DOPPLER: No significant valvular abnormalities detected, but trace mitral regurgitation and mild tricuspid regurgitation. The calculated pulmonary artery systolic pressure varies between 30-40 mmHg. Abnormal relaxation pattern was noted across the mitral valve leaflets as well as the mitral valve annulus consistent with features of grade 1 left ventricular diastolic dysfunction. IMPRESSION: 1. Moderate global left ventricular systolic dysfunction with regional wall motion abnormalities consistent with ischemic cardiomyopathy. There are features of left ventricular diastolic dysfunction, grade 1. 2. Aortic valve sclerosis without stenosis or aortic regurgitation. 3. Mitral annulus calcification with trace mitral regurgitation. 4. Mild tricuspid regurgitation with mild pulmonary hypertension. 5. No vegetations noted in this transthoracic echocardiogram. To consider a transesophageal echocardiogram if looking for vegetations. MTDD
[2018-11-16] MEDS: ACETAMINOPHEN TAB 650MG DOSE (2X325MG) PO PRN ×3 (06:40→23:09)
[2018-11-16] MEDS: SODIUM BICARBONATE 325 MG TAB PO SCH ×4 (08:29→21:40)
[2018-11-16] MEDS: MULTIVITAMINS/MINERALS THERAP 1 TAB PO SCH (08:29)
[2018-11-16] MEDS: METAMUCIL (PSYLLIUM) PACKET PO SCH ×2 (08:30→21:39)
[2018-11-16] MEDS: LOMOTIL 2.5MG/0.025MG TABLET PO SCH ×4 (08:30→21:41)
[2018-11-16] MEDS: LACTOBACILLUS ACIDOPHILUS CAP (BACID) PO SCH ×2 (08:30→21:40)
[2018-11-16] MEDS: POTASSIUM CHLORIDE 10 MEQ SR TABLET PO SCH ×2 (10:51→21:40)
[2018-11-16] MEDS: POLYVINYL ALCOHOL OPHTH SOLN 15 ML(LIQUITEARS) OU PRN (10:52)
[2018-11-16] MEDS ORDERED: ROCURONIUM BROMIDE 50 MG/5 ML VIAL As Ordered ONE (12:48)
[2018-11-16] MEDS ORDERED: MIDAZOLAM INJ 2 MG/2 ML VIAL (J2250) As Ordered ONE (12:48)
[2018-11-16] MEDS ORDERED: fentaNYL 100 MCG/2 ML INJECTION (J3010) As Ordered ONE (12:48)
[2018-11-16] MEDS ORDERED: LIDOCAINE 2% INJ 100 MG/5 ML SDV (FOR ANES.) As Ordered ONE (12:48)
[2018-11-16] MEDS ORDERED: PROPOFOL 200 MG/20 ML VIAL As Ordered ONE (12:48)
[2018-11-16] MEDS ORDERED: CETACAINE SPRAY 5GM As Ordered ONE (13:12)
[2018-11-16] MEDS ORDERED: ONDANSETRON 4MG/2ML VIAL (J2405) As Ordered ONE (13:57)
[2018-11-16] MEDS ORDERED: SUGAMMADEX SODIUM 500 MG/5 ML VIAL (BRIDION) As Ordered ONE (13:59)
[2018-11-16] MEDS ORDERED: ALBUTEROL SULFATE 2.5 MG/0.5 ML INH NEB SOLN As Ordered ONE (14:28)
[2018-11-16] MEDS ORDERED: PERCOCET 5MG/325MG TAB PO PRN (14:45)
[2018-11-16] MEDS ORDERED: fentaNYL 100 MCG/2 ML INJECTION (J3010) IV PRN (14:45)
[2018-11-16] MEDS ORDERED: ONDANSETRON 4MG/2ML VIAL (J2405) IV PRN (14:45)
[2018-11-16] MEDS ORDERED: ALBUTEROL SULFATE 2.5 MG/0.5 ML INH NEB SOLN INH ONE (14:45)
[2018-11-16] MEDS ORDERED: LR 1,000 ML IV SCH (14:45)
--- NOTE | 2018-11-16 14:58 | IPN ---
DATE: 11/16/2018 The patient was seen and examined this morning during rounds. He reports his diarrhea has been improving. He is having slightly more formed stools, they are still very loose, but not as watery. He is also having less frequency of his bowel movements. He denies any blood in the stool. He does continue to have some cramping in his abdomen, but no nausea or vomiting. He denies fevers or chills, no chest pain. No coughing. He continues to have some mild shortness of breath with exertion. PHYSICAL EXAMINATION: Temperature 96.8, pulse 65 respiration 18, blood pressure 127/79, O2 sat 97% on room air, Ins 5.1 liters out 1.5 liters. General: The patient is alert and oriented. Appears well nourished, is not in any acute respiratory distress. Is able to speak in complete sentences. HEENT: Normocephalic, atraumatic. Moist mucous membranes. Neck is supple. No palpable adenopathy. Cardiovascular: Regular rate and rhythm. Normal S1-S2. No murmurs appreciated. Pulmonary: Clear to auscultation bilaterally anteriorly. There are very few crackles at the bases. No wheezing or rhonchi. Abdomen is soft, nondistended, mild diffuse tenderness to palpation. Extremities: There is no lower extremity edema noted bilaterally. LABS: WBC 13.0, hemoglobin 14.5, platelets 319. Chemistries: Sodium is 138, potassium 3.3, chloride is 109, bicarbonate is 18, BUN 17, creatinine 0.90, glucose is 102, procalcitonin was 0.06. Microbiology: Blood cultures are negative. No growth to date. Echocardiogram showed a reduced ejection fraction (EF) of 35-40%. There was some anterior septal and the basal segment akinesis. Basal segments were akinetic. The pulmonary systolic pressure was 30-40 mmHg and there was grade 1 diastolic dysfunction. There was no obvious vegetations noted. There was trace mitral regurgitation and mild tricuspid valve regurgitation. ASSESSMENT/PLAN: Mr. Garcia is a 48 old male with history of asthma, psoriatic arthritis previously on Enbrel with a recent admission in September for diarrhea with metabolic acidosis. The patient was diagnosed with a possible inflammatory bowel disease such as Crohn's disease and was treated with steroids and sulfasalazine. During that admission he also had hypoxemic respiratory failure requiring nasal cannula oxygen likely secondary to fluid overload. He was discharged on room air oxygen. He presents now with increasing episodes of watery diarrhea for the past week. He also had some shortness of breath and dyspnea on exertion and so had a CT angiogram done. On the CT angiogram there was no evidence of PE. However, he had some ground-glass opacities more peripherally as well some cavitating lesions, more in the periphery and more in the left lower lobe. He did not have any fever on admission and denied any respiratory complaints. He had no coughing. No chest pains. No night sweats. No fevers or chills. Given the appearance of the lesions on imaging, septic emboli is in the differential although he had no leukocytosis on admission and no fevers and chills. His echocardiogram also did not show any evidence of vegetations however, it was only a TTE and a ADRIANO would be needed for more accurate evaluation. Also given his immunosuppressed state fungal organisms causing some of these peripheral cavitating lesions is possible such as Aspergillus. PCP is less likely given the distribution and the appearance, but is also possible. Also would be necrobiotic cavitating nodules secondary to his inflammatory bowel disease. Therefore, as patient is not able to provide a very good sputum sample, will perform a bronchoscopy with BAL in his left lower lobe, his lingula and in his right middle lobe and send off the specimens for fungal organisms, PCP, AFB and bacterial cultures. Would need to rule out an infectious process for these nodules as patient is being planned to have increased immunosuppression with possible Remicade by GI. - Will follow-up the results of his bronchoscopy and BAL. - The patient also has serum beta D glucan, galactomannan, as well as MARIELENA and ANCA pending. - Will also check a galactomannan from his BAL, if possible. - The patient's procalcitonin was negative and his blood cultures were negative as well. Septic emboli is less likely in the differential and would consider discontinuing the antibiotics and continue monitoring at this time. - The patient has been on increased prednisone for his possible flare of his inflammatory bowel disease as well as started on mesalamine. His GI microbiology panel was negative. - If these cavitating nodules are secondary to his inflammatory bowel disease with lung parenchymal involvement, they should improve with higher doses of steroids. - Patient will need follow-up imaging to continue monitoring these lesions and if there is persistence may need biopsy and further diagnostic procedures at that time. - The patient's echo does show a newly reduced EF and some segmental wall motion concerning for ischemic cardiomyopathy. He reports a previous stress test 5 years ago but has not had any further testing. His troponins were negative on this admission. DVT prophylaxis, Lovenox. GI prophylaxis. Would start omeprazole given his chronic steroid use. FULL CODE. MTDD
[2018-11-16] MEDS: CEPACOL LOZENGE PO PRN ×4 (15:44→21:41)
[2018-11-16] MEDS: PIPERACILLIN/TAZOBACTAM SOD 4.5 GM in D5W MINI-BAG PLUS 50 ML IV SCH ×2 (15:50→21:41)
--- NOTE | 2018-11-16 15:52 | IPNPDOC ---
Subjective Date Seen The patient was seen on 11/16/18. Subjective Chief Complaint/HPI 48m hx of asthma, previous treated for psoriatic arthritis with enbrel which was stopped in august, recent admission in september for severe diarrhea felt to be due to crohns now admitted with severe diarrhea, metabolic acidosis, and lung lesions. diarrhea has improved somewhat with steroids, pepto, imodium and lomitil. Pt seen earlier, with no new complaints. had bronch today, noted to have white plaques ??fungal Also noted to have RWMA and depressed EF on echo a 10 pt review of systems was performed and negative with the exeption of the positives as documented in the above hpi Objective Physical Examination General Exam: Positive: Alert, Cooperative, No Acute Distress Eye Exam: Positive: PERRLA, Conjunctiva & lids normal, EOMI ENT Exam: Positive: Atraumatic; Negative: Mucous membr. moist/pink Neck Exam: Positive: Supple; Negative: JVD, thyromegaly Chest Exam: Positive: Clear to auscultation, Normal air movement Heart Exam: Positive: Rate Normal, Regular Rhythm, Normal S1, Normal S2; Negative: Murmurs Abdomen Exam: Positive: Soft; Negative: Tenderness Extremity Exam: Negative: Edema Skin Exam: Positive: Nl turgor and temperature; Negative: Breakdown, Lesion Neuro Exam: Positive: Normal Gait, Normal Speech, Cranial Nerves 3-12 NL, Reflexes 2+ Psych Exam: Positive: Mental status NL, Mood NL, Oriented x 3 Assessment /Plan Assessment 48m with recent diagnosis of inflammatory bowel disease, pneumonia, p/w severe diarrhea diarrhea found to have "crohns like" IBD started on prednisone and budesonide and sulfasalazine with improvement for a few weeks diarrhea has recurred apparently after lowering steroids iv steroids ordered Dr Seo following gi panel negative cmv ordered resumed lomotil and pepto improving hypokalemia due to diarrhea improved continue oral replacement metabolic acidosis normal anion gap due to diarrhea improving switch to oral repletion lung findings broad differential of possibilities pt does not appear toxic favoring against acute infections echo ordered given possibility of septic emboli sputum cx check infectious markers, procal, beta d glucan, galactomannan pulmonary following bronch performed, results of bal pending cardiomyopathy echo with basal and septal akinesis, ef 35% no real symptoms of chf however did have fluid overload on last admission may need eventual cath Dr Sánchez consulted Plan/VTE VTE Prophylaxis Ordered?: Yes VS, [facility] Vital Signs/I&O Vital Signs Date Time Temp Pulse Resp B/P (MAP) Pulse Ox O2 Delivery O2 Flow Rate FiO2 11/16/18 14:45 98.7 73 18 119/77 (91) 99 11/14/18 17:30 Room Air I&O- Last 24 Hours up to 6 AM 11/16/18 06:00 Intake Total 4620 ml Output Total 850 ml Balance 3770 ml Laboratory Data 24H LABS Laboratory Tests 2 11/16/18 05:36: Immature Granulocyte % (Auto) 1.6, White Blood Count 13.6H, Red Blood Count 5.01, Hemoglobin 14.5, Hematocrit 41.8L, Mean Corpuscular Volume 83.4, Mean Corpuscular Hemoglobin 28.9, Mean Corpuscular Hemoglobin Concent 34.7, Red Cell Distribution Width 14.2, Platelet Count 319, Neutrophils (%) (Auto) 81.1H, Lymphocytes (%) (Auto) 11.0L, Monocytes (%) (Auto) 6.1H, Eosinophils (%) (Auto) 0.0, Basophils (%) (Auto) 0.2, Neutrophils # (Auto) 11.0H, Lymphocytes # (Auto) 1.5, Monocytes # (Auto) 0.8, Eosinophils # (Auto) 0.0, Basophils # (Auto) 0.0, Nucleated Red Blood Cells % (auto) 0.0, Prothrombin Time 14.7H, Prothromb Time International Ratio 1.18, Activated Partial Thromboplast Time 24.7L, Anion Gap 11, Glomerular Filtration Rate > 60.0, Blood Urea Nitrogen 17, Creatinine 0.90, Sodium Level 138, Potassium Level 3.3L, Chloride Level 109H, Carbon Dioxide Level 18L, Calcium Level 7.6L, Magnesium Level 2.1 CBC/BMP Laboratory Tests 11/16/18 05:36 Red Blood Count 5.01, Mean Corpuscular Volume 83.4, Mean Corpuscular Hemoglobin 28.9, Mean Corpuscular Hemoglobin Concent 34.7, Red Cell Distribution Width 14.2, Neutrophils (%) (Auto) 81.1 H, Lymphocytes (%) (Auto) 11.0 L, Monocytes (%) (Auto) 6.1 H, Eosinophils (%) (Auto) 0.0, Basophils (%) (Auto) 0.2, Neutrophils # (Auto) 11.0 H, Lymphocytes # (Auto) 1.5, Monocytes # (Auto) 0.8, Eosinophils # (Auto) 0.0, Basophils # (Auto) 0.0, Calcium Level 7.6 L Microbiology Microbiology 11/14/18 Blood Culture - Preliminary, Resulted No Growth after 48 hours. All Specime... 11/14/18 Blood Culture - Preliminary, Resulted No Growth after 48 hours. All Specime... 11/14/18 Gastrointestinal Tract Panel (PCR) - Final, Complete 11/15/18 MRSA Screen - Final, Complete 11/15/18 Gram Stain - Final, Resulted 11/15/18 Sputum Culture, Resulted Pending PEPE BARKSDALE MD Nov 16, 2018 15:52
--- NOTE | 2018-11-16 15:59 | ROOR ---
Patient Name: Sina Garcia Procedure Date: 11/16/2018 1:23 PM Date of : 1970 Admit Type: Inpatient Age: 48 Note Status: Finalized Attending MD: Peggy Auguste MD Procedure: Bronchoscopy Indications: Multiple pulmonary nodules Providers: Peggy Auguste MD (Doctor) Referring MD: Sujit Marshall Md (Referring MD) Requesting Physician: Medicines: General Anesthesia, Cetacaine topical Complications: No immediate complications Procedure: Pre-Anesthesia Assessment: - Prior to the procedure, a History and Physical was performed, and patient medications and allergies were reviewed. The patient's tolerance of previous anesthesia was also reviewed. The risks and benefits of the procedure and the sedation options and risks were discussed with the patient. All questions were answered, and informed consent was obtained. Prior Anticoagulants: The patient has taken no previous anticoagulant or antiplatelet agents. ASA Grade Assessment: III - A patient with severe systemic disease. After reviewing the risks and benefits, the patient was deemed in satisfactory condition to undergo the procedure. The Bronchoscope was introduced through the mouth, via the endotracheal tube (the patient was intubated for the procedure) and advanced to the tracheobronchial tree of both lungs. The procedure was accomplished without difficulty. The patient tolerated the procedure well. Findings: Bilateral Lung Abnormalities: Leta was normal, no endobronchial lesions or masses. There were thick mucoid secretions noted throughout the tracheobronchial tree but worse on the left side. There were thick white tenacious secretions noted in left main bronchus. Bronchoalveolar lavage was performed in the RML medial segment (B5), in the ALBA superior lingular segment (B4) and in the LLL anterior medial segments (B7 & B8) of the lung and sent for cell count, bacterial culture, and fungal & AFB analysis and cytology. The return was mucoid. Mucous plugs were present in the return fluid. Impression: - Multiple pulmonary nodules on imaging - Bronchoalveolar lavage was performed in RML, lingula and LLL. Recommendation: - Await test results. Attending Participation: I personally performed the entire procedure. Peggy Auguste MD 11/16/2018 3:58:53 PM Number of Addenda: 0 Note Initiated On: 11/16/2018 1:23 PM
[2018-11-16] MEDS: ENOXAPARIN 40 MG/0.4 ML SYRINGE (J1650) SC SCH (17:24)
[2018-11-16 22:00] VITALS: BP 136/86
--- NOTE | 2018-11-16 22:23 | CR ---
CARDIOLOGY CONSULTATION DATE OF CONSULTATION: 11/16/2018 REFERRING PHYSICIAN: Dr. Sujit Marshall INDICATION: Possible pulmonary septic emboli. Abnormal echocardiogram. 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 He has been known to be an athletic individual, taking part in marathons without recent cardiovascular complaint. Was evaluated officially by my colleague Dr. Cuenca in 2011 for palpitations and atypical chest discomfort. Studies included a Holter monitor, event monitor and treadmill Cardiolite heart scan. His event monitors showed a heightened awareness of normal heart action. Total number of premature ventricular contractions (PVCs) in 24 hours was well within normal limits, but on multiple occasions he did feel isolated ectopy. His stress test showed excellent exercise tolerance, completing 13 minutes of the standard Ant protocol with excellent heart rate and blood pressure response, no chest pain, EKG ST/T-wave change, stopping with dyspnea on leg fatigue. No abnormal pulmonary uptake to suggest pulmonary venous congestion. Left ventricle was mildly increased in size related to his physical training, but had a normal ejection fraction of 63% and normal myocardial perfusion images. His current problems apparently began in the recent past when he was diagnosed with psoriatic arthritis and started on a biologic agent. The first 2019 underwent endoscopy, temporarily off his biologic, and ever since that time has had problems with loose motions. These had reached a severity to include volume depletion, acute renal injury, metabolic acidosis. He was successfully resuscitated with parenteral fluid replacement, with potassium replacement, bicarbonate and Bicitra. Discharged 10/21/2018 with diagnosis of probable inflammatory bowel disease, likely Crohn's, causing profuse diarrhea, dehydration, metabolic acidosis and acute kidney injury. He was discharged on amoxicillin for suspected aspiration pneumonia and prednisone therapy, but had been feeling dramatically improved. On 11/14/2018, he was re-admitted to hospital with further recurrence of diarrhea despite prednisone 20 mg daily and sulfasalazine 500 mg twice a day, with budesonide 9 mg by mouth daily, with Imodium 2 mg tablets, 4 mg every 4 hours as needed diarrhea. Initial vital signs showed a heart rate of 73 beats per minute, blood pressure 120/80, respiratory rate 18 with oxygen saturation 99% on room air and he was afebrile. Blood work showed a recurrent degree of azotemia, slight hyponatremia and acidemia. Admitted to [facility] having received a saline bolus and maintained on IV fluid along with his prednisone, Imodium and sulfasalazine, but now 1500 mg twice a day. Consultation was placed with gastroenterology and, following a chest CT scan performed because of shortness of breath showing scattered areas of infiltrate, left upper lobe and left lower lobe, and less degree right lower lobe, with pulmonary cysts/cavitation suspicious for multifocal pneumonia/septic emboli, pulmonary medicine consultation was also placed. Admission EKG showed sinus rhythm at 78 beats per minute and was normal. An echocardiogram was requested and reportedly showed normal heart chamber sizes, left ventricular (LV) wall thickness, but moderate global left ventricular hypokinesis with estimated left ventricular ejection fraction of 35 - 40%. Suspected anteroseptal and basal wall motion abnormality. LV diastolic function was suspected with degree of mild pulmonary hypertension. Valvular structures were reported to show some sclerosis, but no hemodynamically significant valvular abnormality and no obvious vegetations. There was no pericardial effusion. In light of these findings, a cardiology consultation was placed today. Despite his tremendously complicated gastrointestinal (GI) problems, his EKG is normal and Troponin I level was normal. Chest CT scan at the time of admission reportedly showed normal heart and pericardium without evidence of pulmonary vascular congestion or pleural effusion. Patient has been free of any chest discomfort. Shortness of breath appears to have been correlating with metabolic acidosis. No recent abnormal awareness of his heart action. Weakness and lightheadedness related to his relative hypovolemia and profuse diarrhea. No lateralized neurological deficit. No history of claudication or peripheral venous disease. No known hypertension, heart murmur or cardiac enlargement beyond that described above. CORONARY RISK FACTORS: Male gender. Age. Remote smoking history. No history of hypertension, hypercholesterolemia, diabetes. No family history of premature coronary heart disease. His mother suffered from coronary disease in her 60s. CURRENT MEDICATIONS: - omeprazole 20 mg daily - piperacillin/tazobactam 4.5 grams IV every 6 hours - potassium chloride 40 mEq twice a day - Solu-Medrol 20 mg IV every 6 hours - Lomotil one tablet prior to each meal and bedtime - Pepto-Bismol 30 mL by mouth every 6 hours - Pentasa 1 grams by mouth every 6 hours - multivitamin one tablet daily - Lovenox 40 mg subcutaneous daily - sodium bicarbonate 650 mg by mouth four times a day - calcium carbonate 1 gram every 4 hours as needed heartburn - lactobacillus acidophilus two tablets by mouth twice a day - Metamucil one package by mouth twice a day - albuterol inhaler/nebulizer every 4 hours as needed dyspnea. ALLERGIES: CODEINE, LATEX and EPINEPHRINE? Reactions unknown. PHYSICAL EXAMINATION: CONSTITUTIONAL: Tall, remarkably gaunt middle-aged male compared to recollection. Has lost 70 pounds since 09/16/2018. Bright, alert and oriented and gave a lucid history. In no distress lying with the head of bed elevated only 20 degrees. VITAL SIGNS: Heart rate 78 bpm and regular, blood pressure 112 over 68 supine, not significantly changed upon sitting with legs dependent. Respiratory rate 18, oxygen saturation 99% on room air. Afebrile. Admission weight 224 pounds, height 75 inches, body mas index (BMI) 28. Appears slightly pale but currently not lethargic. EYES: Normal appearing conjunctiva without petechiae or xanthelasma. ENT/MOUTH: Normal oral moisture. No central cyanosis. NECK: Trachea midline. Thyroid not enlarged. Neck veins were at the level of sternal angle. RESPIRATORY: Normal-appearing chest configuration and chest expansion with few inspiratory crepitations over the left lung field and right lower lobe posteriorly. No current expiratory wheezes. CARDIOVASCULAR: Apical impulse medial to the mid clavicular line, fifth intercostal space. S1-S2 were normal. No audible gallops or murmurs. Normal carotid upstrokes and volume with no bruits. Normal appearing abdominal aorta with no bruits. Peripheral pulses were symmetrical and normal. No dependent edema. EXTREMITIES: No splinter hemorrhages, clubbing or peripheral cyanosis. GASTROINTESTINAL (GI): Scaphoid, soft abdomen with no current localized tenderness. No apparent hepatosplenomegaly. Normal bowel sounds. RECTAL EXAMINATION: Not indicated. MUSCULOSKELETAL: No obvious joint deformities. Normal muscular strength and tone. Normal spine curvature. NEUROLOGICAL/PSYCHOLOGICAL: Bright, alert and oriented. Normal symmetrical eye, facial, and extremity movements. No abnormal movements. Affect was appropriate. SKIN: Some dry, scaly skin on his abdomen, but no other sign of rash, ecchymosis or icterus. INVESTIGATIONS: Chest x-ray: Portable upright study performed 10/16/2018 was reviewed independently and shows a normal appearing heart size for this technique. Normal greater vessels and pulmonary vasculature. Left lower lobe infiltrate with left hemidiaphragm obscured. Chest CT angiography: Study performed 11/14/2018 was reviewed independently and shows normal cardiac chamber sizes and wall thickness, normal pulmonary trunk size and thoracic aorta. No pericardial effusion. No evidence of pulmonary embolism and lung field abnormalities as described above. EKG: Study done on admission shows sinus rhythm at 78 beats per minute. Tracing is completely within normal limits. Echocardiogram: Study performed 11/15/2018 was reviewed independently and again shows normal cardiac chamber sizes, wall thickness and I believe normal wall motion. Images were not particularly optimal in light of his body habitus. Interestingly, his ejection fraction was calculated three different ways, the least reliable using M-mode and I suspect and incorrect systolic diameter showed a measurement of 34%, but using simplified Thomas's rule ejection fraction measured 58 - 66%. Doppler flow signals were within normal limits. No valvular structures appeared to be normal without functional abnormality. No sign of vegetation or pericardial effusion. Blood work: Studies today showed a hemoglobin of 14.5, with white blood cell count up to 13.6000. Normal platelet count. His PT/INR was 14.7/1.18, with PTT 24.7. Venous blood gas on admission showed a pH of 7.3, pCO2 of 25.8, O2 of 100.7. Potassium today was slightly low at 3.3, bicarbonate was slightly low at 18, but improved from 13 on admission. BUN has improved from 19 to 17, creatinine 0.9 down from 1.2 on admission. Serum albumin was 3.2 on admission, magnesium level was normal at 2.1. Troponin-I level on admission was negative. IMPRESSION/PLAN: Tachypnea: Attributed to his metabolic acidosis and ongoing pulmonary inflammatory disorder. Underwent bronchoscopy earlier today by pulmonary medicine. Findings on his CT scan showing evidence of pulmonary cysts and cavitation, concerning for septic emboli. No clinical or transthoracic echocardiographic evidence for endocarditis. Although left ventricular dysfunction may accompany sepsis, having reviewed this study from the multiple apical and subcostal projections, I am not convinced there is a localized wall motion abnormality or impairment of systolic function. As mentioned, in light of his body habitus, echocardiographic images were a challenge and definition of his endocardium was not crystal-clear. At this point, if his bronchoscopy proves his pulmonary inflammatory process is septic rather than an autoimmune phenomenon, a transesophageal echocardiogram would be recommended to further evaluate valvular structure and function, and this would allow for a clearer picture of ventricular wall motion and function. Pending these bronchoscopy results, cardiology will follow from af[place]. We would be pleased to reassess him at any time. cc: Dr. Peggy ROSE
[2018-11-16 22:37] LABS: SOURCE RIGHT MIDDLE LOBE
[2018-11-16 22:38] LABS: APPEARANCE HAZY (CLEAR); COLOR COLORLESS (COLORLESS)
[2018-11-16 23:07] LABS: APPEARANCE HAZY (CLEAR); COLOR PINK (COLORLESS); SOURCE BRON ALVEOLAR LAVAGE
[2018-11-16 23:28] LABS: APPEARANCE HAZY (CLEAR); COLOR COLORLESS (COLORLESS); SOURCE LEFT LOWER LOBE
[2018-11-17 00:26] LABS: MONOCYTES/MACROPHAGES, BAL 50 %
[2018-11-17] MEDS: PIPERACILLIN/TAZOBACTAM SOD 4.5 GM in D5W MINI-BAG PLUS 50 ML IV SCH ×2 (03:52→09:09)
[2018-11-17 06:00] VITALS: BP 119/73
[2018-11-17 06:06] LABS: BASO % 0.3 % (0.0-1.0); HEMATOCRIT 42.4 % (42.0-52.0); HEMOGLOBIN 14.4 g/dl (13.5-17.5); LYMPH # 1.1 10^3/uL (1.5-4.5); LYMPH % 7.8 % (24.0-44.0); MEAN CORPUSCULAR HEMOGLOBIN 29.6 pg (27.0-33.0); MEAN CORPUSCULAR VOLUME 87.1 fl (80.0-96.0); MONO # 0.8 10^3/uL (0.0-0.8); MONO % 5.7 % (0.0-5.0); NEUTROPHILS # 11.3 10^3/uL (1.8-7.7); NEUTROPHILS % 84.6 % (36.0-66.0); PLATELET COUNT, AUTOMATED 293 10^3/uL (150-450); RED BLOOD COUNT 4.87 10^6/uL (4.30-6.10); WHITE BLOOD COUNT 13.4 10^3/uL (4.0-10.0)
[2018-11-17] MEDS: CEPACOL LOZENGE PO PRN (06:28)
[2018-11-17] MEDS: ACETAMINOPHEN TAB 650MG DOSE (2X325MG) PO PRN (06:28)
[2018-11-17] MEDS: MESALAMINE 250 MG CR CAP PO SCH ×3 (06:28→17:38)
[2018-11-17] MEDS: methylPREDNISolone INJ 40 MG/1 ML VIAL (J2920) IV SCH ×3 (06:29→17:38)
[2018-11-17] MEDS: PINK BISMUTH SUSP 524MG/30ML ORAL SYRINGE PO SCH ×3 (06:29→17:37)
[2018-11-17] MEDS: LOMOTIL 2.5MG/0.025MG TABLET PO SCH ×4 (06:30→22:45)
[2018-11-17 06:34] LABS: BLOOD UREA NITROGEN 21 MG/DL (7-18); CALCIUM LEVEL 7.5 MG/DL (8.5-10.1); CARBON DIOXIDE LEVEL 19 MEQ/L (21-32); CHLORIDE LEVEL 109 MEQ/L (98-107); CREATININE FOR GFR 0.92 MG/DL (0.70-1.30); GLOMERULAR FILTRATION RATE > 60.0 (>56); GLUCOSE, FASTING 104 MG/DL (70-100); POTASSIUM SERUM 3.9 MEQ/L (3.5-5.1); SODIUM LEVEL 137 MEQ/L (136-145)
[2018-11-17 08:18] LABS: MONOCYTES/MACROPHAGES, BAL 78 %
[2018-11-17 08:32] LABS: MONOCYTES/MACROPHAGES, BAL 86 %
[2018-11-17] MEDS: METAMUCIL (PSYLLIUM) PACKET PO SCH ×2 (09:06→20:20)
[2018-11-17] MEDS: SODIUM BICARBONATE 325 MG TAB PO SCH ×4 (09:07→20:20)
[2018-11-17] MEDS: POTASSIUM CHLORIDE 10 MEQ SR TABLET PO SCH ×2 (09:07→20:19)
[2018-11-17] MEDS: MULTIVITAMINS/MINERALS THERAP 1 TAB PO SCH (09:07)
[2018-11-17] MEDS: OMEPRAZOLE 20 MG CAP PO SCH (09:07)
[2018-11-17] MEDS: LACTOBACILLUS ACIDOPHILUS CAP (BACID) PO SCH ×2 (09:07→20:18)
[2018-11-17] MEDS: ENOXAPARIN 40 MG/0.4 ML SYRINGE (J1650) SC SCH (09:08)
--- NOTE | 2018-11-17 10:45 | PHACANCOPD ---
PHARMACY VANCOMYCIN DOSING Pt Demographics Demographics Patient Age:48 , Weight:101.600 , Gender: male Adjusted Body Weight Date: 11/15/18, Adjusted Body Weight: [91.34] Kg Events Past 24 Hours Events Past 24 Hours: NO: Dialysis, Diuretic Therapy, Change in CrCl, Fever, Elevation in WBC, Pending Diagnostics, Pending Procedures, Other Vancomycin Vancomycin indication: CAVITARY LUNG LESION-HX STAPH Vancomycin Target Ranges: 15-20 mcg/ml Vancomycin Load Y/N: Yes Load Dose Date Time Vancomycin Load Dose: 2G Date: 11/17/18 Time: 11:00 Vancomycin Dose Date: 11/17/18. Current Vancomycin Dose: [1G IV Q8H @11:00 (RESTARTED)] Date: 11/15/18. Current Vancomycin Dose: [1GM@21,THEN Q8H@12MID] Intermittent Dosing?: No Labs Labs Item Value Date Time White Blood Count 10.9 10^3/uL H 11/15/18 0607 White Blood Count 13.6 10^3/uL H 11/16/18 0536 White Blood Count 13.4 10^3/uL H 11/17/18 0536 Creatinine 1.15 MG/DL 11/15/18 1342 Creatinine 0.90 MG/DL 11/16/18 0536 Creatinine 0.92 MG/DL 11/17/18 0536 Micro Microbiology 11/14/18 Blood Culture - Preliminary, Resulted No Growth after 48 hours. All Specime... 11/14/18 Blood Culture - Preliminary, Resulted No Growth after 48 hours. All Specime... 11/14/18 Gastrointestinal Tract Panel (PCR) - Final, Complete 11/16/18 Acid Fast Stain, Received Pending 11/16/18 Mycobacterial Culture, Received Pending 11/16/18 Fungal Smear, Received Pending 11/16/18 Fungal Culture, Received Pending 11/16/18 Acid Fast Stain, Received Pending 11/16/18 Mycobacterial Culture, Received Pending 11/16/18 Fungal Smear, Received Pending 11/16/18 Fungal Culture, Received Pending 11/16/18 Acid Fast Stain, Received Pending 11/16/18 Mycobacterial Culture, Received Pending 11/16/18 Fungal Smear, Received Pending 11/16/18 Fungal Culture, Received Pending 11/16/18 Gram Stain, Received Pending 11/16/18 Bronchoalveolar Lavage Culture, Received Pending 11/16/18 Gram Stain, Received Pending 11/16/18 Bronchoalveolar Lavage Culture, Received Pending 11/16/18 Gram Stain, Received Pending 11/16/18 Bronchial Aspirate Culture, Received Pending 11/16/18 Acid Fast Stain, Received Pending 11/16/18 Mycobacterial Culture, Received Pending 11/16/18 Fungal Smear, Received Pending 11/16/18 Fungal Culture, Received Pending 11/16/18 Gram Stain, Received Pending 11/16/18 Bronchoalveolar Lavage Culture, Received Pending 11/15/18 MRSA Screen - Final, Complete 11/15/18 Gram Stain - Final, Complete 11/15/18 Sputum Culture - Final, Complete Staph.aureus Methicillin Resis Creatinine Clearance Date:11/15/18. Creatinine Clearance: [124ML/MIN].CALCULATED Pending Labs VANCOMCYIN TROUGH 11/18/18 @11:00 Assessment and Plan Maintaining Current Dose?: Yes Reason for dose change: No Dose Change Pharmacist Note Pharmacist Note Date: 11/17/18. Pharmacist note:The pt is being restarted on vancomycin this morning. The last dose was 11/15 @10:00. The patient will be reloaded with 2g vancomycin IV @11:00 today. Maintenance therapy will consist of 1g IV every 8 hours. A trough is scheduled 11/18/18 @ 10:00. We will continue to monitor and adjust the dose as needed. Date: 11/15/18. Pharmacist note: 48YOM Admitted w/cavitary lung lesion.SCR=1.24, CRCL=92.1Calculated.,Allergies:latex,Codeine,Epinephrine .To receive Pip/Tazo 4.5 grams IV [id number] and Pharmacy dosed Vancomycin. Vanco 1 gram administered 11/14@2100, then will begin 1 gram IV Q8Hour regimen 11/15@12 mid. First trough is scheduled for 11/15@1500-prior to the 4th dose)-Will continue to follow labs and will make dose adjustments as needed ASIYA LEE [facility] Nov 17, 2018 10:45
[2018-11-17] MEDS ORDERED: VANCOMYCIN HCL 1,000 MG, VIAL MATE ADAPTER 1 EACH in D5W 250 ML IV ONE (12:00)
[2018-11-17] MEDS: VANCOMYCIN HCL 1,000 MG, VIAL MATE ADAPTER 1 EACH in D5W 250 ML IV SCH ×2 (12:09→18:57)
[2018-11-17] MEDS ORDERED: LR 1,000 ML IV ONE (12:15)
[2018-11-17 14:18] VITALS: BP 118/73
--- NOTE | 2018-11-17 19:16 | IPNPDOC ---
Subjective Date Seen The patient was seen on 11/17/18. Subjective Chief Complaint/HPI 48m hx of asthma, previous treated for psoriatic arthritis with enbrel which was stopped in august, recent admission in september for severe diarrhea felt to be due to crohns now admitted with severe diarrhea, metabolic acidosis, and lung lesions. stools firming up a little, AFB from BAL negative, pt reports not voiding much, MRSA growing in sputum cx a 10 pt review of systems was performed and negative with the exeption of the positives as documented in the above hpi Objective Physical Examination General Exam: Positive: Alert, Cooperative, No Acute Distress Eye Exam: Positive: PERRLA, Conjunctiva & lids normal, EOMI ENT Exam: Positive: Atraumatic; Negative: Mucous membr. moist/pink Neck Exam: Positive: Supple; Negative: JVD, thyromegaly Chest Exam: Positive: Clear to auscultation, Normal air movement Heart Exam: Positive: Rate Normal, Regular Rhythm, Normal S1, Normal S2; Negative: Murmurs Abdomen Exam: Positive: Soft; Negative: Tenderness Extremity Exam: Negative: Edema Skin Exam: Positive: Nl turgor and temperature; Negative: Breakdown, Lesion Neuro Exam: Positive: Normal Gait, Normal Speech, Cranial Nerves 3-12 NL, Reflexes 2+ Psych Exam: Positive: Mental status NL, Mood NL, Oriented x 3 Assessment /Plan Assessment 48m with recent diagnosis of inflammatory bowel disease, pneumonia, p/w severe diarrhea diarrhea found to have "crohns like" IBD started on prednisone and budesonide and sulfasalazine with improvement for a few weeks diarrhea has recurred apparently after lowering steroids iv steroids Dr Seo following gi panel negative cmv ordered resumed lomotil and pepto improving possibly to receive remicade eventually hypokalemia due to diarrhea improved continue oral replacement metabolic acidosis normal anion gap due to diarrhea improving oral repletion lung findings broad differential of possibilities pt does not appear toxic favoring against acute infections sputum cx with mrsa check infectious markers, procal, beta d glucan, galactomannan pulmonary following bronch performed, results of bal pending echo findings Dr Sánchez input appreciated will hold off on further cardiac w/u for now Plan/VTE VTE Prophylaxis Ordered?: Yes VS, I&O, 24H, Fishbone Vital Signs/I&O Vital Signs Date Time Temp Pulse Resp B/P (MAP) Pulse Ox O2 Delivery O2 Flow Rate FiO2 11/17/18 14:18 63 118/73 (88) 99 11/17/18 14:17 97.9 11/17/18 06:00 16 11/14/18 17:30 Room Air I&O- Last 24 Hours up to 6 AM 11/17/18 06:00 Intake Total 2000 ml Output Total 500 ml Balance 1500 ml Laboratory Data 24H LABS Laboratory Tests 2 11/17/18 05:36: Immature Granulocyte % (Auto) 1.6, White Blood Count 13.4H, Red Blood Count 4.87, Hemoglobin 14.4, Hematocrit 42.4, Mean Corpuscular Volume 87.1, Mean Corpuscular Hemoglobin 29.6, Mean Corpuscular Hemoglobin Concent 34.0, Red Cell Distribution Width 14.6H, Platelet Count 293, Neutrophils (%) (Auto) 84.6H, Lymphocytes (%) (Auto) 7.8L, Monocytes (%) (Auto) 5.7H, Eosinophils (%) (Auto) 0.0, Basophils (%) (Auto) 0.3, Neutrophils # (Auto) 11.3H, Lymphocytes # (Auto) 1.1L, Monocytes # (Auto) 0.8, Eosinophils # (Auto) 0.0, Basophils # (Auto) 0.0, Nucleated Red Blood Cells % (auto) 0.0, Anion Gap 9, Glomerular Filtration Rate > 60.0, Blood Urea Nitrogen 21H, Creatinine 0.92, Sodium Level 137, Potassium Level 3.9, Chloride Level 109H, Carbon Dioxide Level 19L, Calcium Level 7.5L, Magnesium Level 2.0 CBC/BMP Laboratory Tests 11/17/18 05:36 Red Blood Count 4.87, Mean Corpuscular Volume 87.1, Mean Corpuscular Hemoglobin 29.6, Mean Corpuscular Hemoglobin Concent 34.0, Red Cell Distribution Width 14.6 H, Neutrophils (%) (Auto) 84.6 H, Lymphocytes (%) (Auto) 7.8 L, Monocytes (%) (Auto) 5.7 H, Eosinophils (%) (Auto) 0.0, Basophils (%) (Auto) 0.3, Neutrophils # (Auto) 11.3 H, Lymphocytes # (Auto) 1.1 L, Monocytes # (Auto) 0.8, Eosinophils # (Auto) 0.0, Basophils # (Auto) 0.0, Calcium Level 7.5 L Microbiology Microbiology 11/14/18 Blood Culture - Preliminary, Resulted No Growth after 72 hours. All specime... 11/14/18 Blood Culture - Preliminary, Resulted No Growth after 72 hours. All specime... 11/14/18 Gastrointestinal Tract Panel (PCR) - Final, Complete 11/16/18 Acid Fast Stain - Final, Resulted 11/16/18 Mycobacterial Culture, Resulted Pending 11/16/18 Fungal Smear, Resulted Pending 11/16/18 Fungal Culture, Resulted Pending 11/16/18 Acid Fast Stain - Final, Resulted 11/16/18 Mycobacterial Culture, Resulted Pending 11/16/18 Fungal Smear, Resulted Pending 11/16/18 Fungal Culture, Resulted Pending 11/16/18 Acid Fast Stain - Final, Resulted 11/16/18 Mycobacterial Culture, Resulted Pending 11/16/18 Fungal Smear, Resulted Pending 11/16/18 Fungal Culture, Resulted Pending 11/16/18 Gram Stain - Final, Resulted 11/16/18 Bronchoalveolar Lavage Culture, Resulted Pending 11/16/18 Gram Stain - Final, Resulted 11/16/18 Bronchoalveolar Lavage Culture, Resulted Pending 11/16/18 Gram Stain - Final, Resulted 11/16/18 Bronchial Aspirate Culture, Resulted Pending 11/16/18 Acid Fast Stain - Final, Resulted 11/16/18 Mycobacterial Culture, Resulted Pending 11/16/18 Fungal Smear, Resulted Pending 11/16/18 Fungal Culture, Resulted Pending 11/16/18 Gram Stain - Final, Resulted 11/16/18 Bronchoalveolar Lavage Culture, Resulted Pending 11/15/18 MRSA Screen - Final, Complete 11/15/18 Gram Stain - Final, Complete 11/15/18 Sputum Culture - Final, Complete Staph.aureus Methicillin Resis PEPE BARKSDALE MD Nov 17, 2018 19:15
[2018-11-17] MEDS: LR 1,000 ML IV SCH (20:18)
[2018-11-17 22:00] VITALS: BP 121/73
[2018-11-18] MEDS: methylPREDNISolone INJ 40 MG/1 ML VIAL (J2920) IV SCH ×4 (01:02→17:56)
[2018-11-18] MEDS: PINK BISMUTH SUSP 524MG/30ML ORAL SYRINGE PO SCH ×4 (01:02→17:56)
[2018-11-18] MEDS: MESALAMINE 250 MG CR CAP PO SCH ×4 (01:02→17:56)
[2018-11-18] MEDS: VANCOMYCIN HCL 1,000 MG, VIAL MATE ADAPTER 1 EACH in D5W 250 ML IV SCH ×2 (03:06→14:00)
[2018-11-18 06:00] VITALS: BP 125/76
[2018-11-18 06:37] LABS: BASO % 0.2 % (0.0-1.0); EOS % 0.2 % (0.0-3.0); HEMATOCRIT 37.2 % (42.0-52.0); HEMOGLOBIN 12.5 g/dl (13.5-17.5); LYMPH # 0.9 10^3/uL (1.5-4.5); LYMPH % 9.5 % (24.0-44.0); MEAN CORPUSCULAR HEMOGLOBIN 30.3 pg (27.0-33.0); MEAN CORPUSCULAR HGB CONC 33.6 g/dl (32.0-36.5); MEAN CORPUSCULAR VOLUME 90.1 fl (80.0-96.0); MONO # 0.5 10^3/uL (0.0-0.8); MONO % 5.4 % (0.0-5.0); NEUTROPHILS # 7.6 10^3/uL (1.8-7.7); NEUTROPHILS % 82.9 % (36.0-66.0); PLATELET COUNT, AUTOMATED 177 10^3/uL (150-450); RED BLOOD COUNT 4.13 10^6/uL (4.30-6.10); WHITE BLOOD COUNT 9.1 10^3/uL (4.0-10.0)
[2018-11-18 07:03] LABS: BLOOD UREA NITROGEN 17 MG/DL (7-18); CALCIUM LEVEL 7.4 MG/DL (8.5-10.1); CARBON DIOXIDE LEVEL 18 MEQ/L (21-32); CHLORIDE LEVEL 114 MEQ/L (98-107); CREATININE FOR GFR 0.78 MG/DL (0.70-1.30); GLOMERULAR FILTRATION RATE > 60.0 (>56); GLUCOSE, FASTING 102 MG/DL (70-100); MAGNESIUM LEVEL 2.1 MG/DL (1.8-2.4); POTASSIUM SERUM 4.1 MEQ/L (3.5-5.1); SODIUM LEVEL 139 MEQ/L (136-145)
[2018-11-18] MEDS: MULTIVITAMINS/MINERALS THERAP 1 TAB PO SCH (08:15)
[2018-11-18] MEDS: LACTOBACILLUS ACIDOPHILUS CAP (BACID) PO SCH ×2 (08:15→20:30)
[2018-11-18] MEDS: SODIUM BICARBONATE 325 MG TAB PO SCH ×4 (08:16→20:30)
[2018-11-18] MEDS: LOMOTIL 2.5MG/0.025MG TABLET PO SCH ×4 (08:16→20:29)
[2018-11-18] MEDS: POTASSIUM CHLORIDE 10 MEQ SR TABLET PO SCH ×2 (08:16→20:29)
[2018-11-18] MEDS: METAMUCIL (PSYLLIUM) PACKET PO SCH ×2 (08:16→20:30)
[2018-11-18] MEDS: OMEPRAZOLE 20 MG CAP PO SCH (08:16)
[2018-11-18] MEDS: ENOXAPARIN 40 MG/0.4 ML SYRINGE (J1650) SC SCH (08:17)
[2018-11-18] MEDS: LR 1,000 ML IV SCH ×2 (09:13→20:30)
[2018-11-18] MEDS ORDERED: VANCOMYCIN HCL 1,000 MG, VIAL MATE ADAPTER 1 EACH in D5W 250 ML IV SCH (11:00)
[2018-11-18 14:00] VITALS: BP 122/79
--- NOTE | 2018-11-18 14:11 | PHACANCOPD ---
PHARMACY VANCOMYCIN DOSING Pt Demographics Demographics Patient Age:48 , Weight:101.600 , Gender: male Adjusted Body Weight Date: 11/15/18, Adjusted Body Weight: [91.34] Kg Vancomycin Vancomycin indication: CAVITARY LUNG LESION-HX STAPH Vancomycin Target Ranges: 15-20 mcg/ml Vancomycin Load Y/N: Yes Load Dose Date Time Vancomycin Load Dose: 2G Date: 11/17/18 Time: 11:00 Vancomycin Dose Date: 11/18/18. Current Vancomycin Dose: [1500MG IV Q12H@4] Date: 11/17/18. Current Vancomycin Dose: [1G IV Q8H @11:00 (RESTARTED)] Date: 11/15/18. Current Vancomycin Dose: [1GM@21,THEN Q8H@12MID] Intermittent Dosing?: No Labs Labs Item Value Date Time White Blood Count 13.6 10^3/uL H 11/16/18 0536 White Blood Count 13.4 10^3/uL H 11/17/18 0536 White Blood Count 9.1 10^3/uL 11/18/18 0600 Procalcitonin 0.06 NG/ML 11/15/18 0607 Creatinine 0.92 MG/DL 11/17/18 0536 Creatinine 0.78 MG/DL 11/18/18 0600 Vital Signs Label Value Date Time Patient Temperature 98.4 degrees F 11/17/18 2200 Temperature Source Oral 11/17/18 2200 Patient Temperature 98.0 degrees F 11/18/18 0600 Temperature Source Oral 11/18/18 0600 Micro Microbiology 11/14/18 Blood Culture - Preliminary, Resulted No Growth after 72 hours. All specime... 11/14/18 Blood Culture - Preliminary, Resulted No Growth after 72 hours. All specime... 11/14/18 Gastrointestinal Tract Panel (PCR) - Final, Complete 11/16/18 Acid Fast Stain - Final, Resulted 11/16/18 Mycobacterial Culture, Resulted Pending 11/16/18 Fungal Smear, Resulted Pending 11/16/18 Fungal Culture, Resulted Pending 11/16/18 Acid Fast Stain - Final, Resulted 11/16/18 Mycobacterial Culture, Resulted Pending 11/16/18 Fungal Smear, Resulted Pending 11/16/18 Fungal Culture, Resulted Pending 11/16/18 Acid Fast Stain - Final, Resulted 11/16/18 Mycobacterial Culture, Resulted Pending 11/16/18 Fungal Smear, Resulted Pending 11/16/18 Fungal Culture, Resulted Pending 11/16/18 Gram Stain - Final, Resulted 11/16/18 Bronchoalveolar Lavage Culture - Preliminary, Resulted Staphylococcus Aureus 11/16/18 Gram Stain - Final, Resulted 11/16/18 Bronchoalveolar Lavage Culture - Preliminary, Resulted Staphylococcus Aureus 11/16/18 Gram Stain - Final, Resulted 11/16/18 Bronchial Aspirate Culture - Preliminary, Resulted Staphylococcus Aureus 11/16/18 Acid Fast Stain - Final, Resulted 11/16/18 Mycobacterial Culture, Resulted Pending 11/16/18 Fungal Smear, Resulted Pending 11/16/18 Fungal Culture, Resulted Pending 11/16/18 Gram Stain - Final, Resulted 11/16/18 Bronchoalveolar Lavage Culture - Preliminary, Resulted Staphylococcus Aureus 11/15/18 MRSA Screen - Final, Complete 11/15/18 Gram Stain - Final, Complete 11/15/18 Sputum Culture - Final, Complete Staph.aureus Methicillin Resis Creatinine Clearance Date:11/15/18. Creatinine Clearance: [124ML/MIN].CALCULATED Pending Labs VANCOMCYIN TROUGH 11/18/18 @11:00 Assessment and Plan Maintaining Current Dose?: No Reason for dose change: Trough too high Pharmacist Note Pharmacist Note 11/18: Today is day 2 of treatment with Vancomycin and his trough resulted at 22.6. He was given a 4 hour washout period and restarted at 1400 on Vancomycin 1500mg IV q12h. We will redraw his trough tomorrow at 1300 to make sure his level is therapeutic. Date: 11/17/18. Pharmacist note:The pt is being restarted on vancomycin this morning. The last dose was 11/15 @10:00. The patient will be reloaded with 2g vancomycin IV @11:00 today. Maintenance therapy will consist of 1g IV every 8 hours. A trough is scheduled 11/18/18 @ 10:00. We will continue to monitor and adjust the dose as needed. Date: 11/15/18. Pharmacist note: 48YOM Admitted w/cavitary lung lesion.SCR=1.24,CRCL=92.1Calculated.,Allergies:latex,Codeine,Epinephrine .To receive Pip/Tazo 4.5 grams IV [id number] and Pharmacy dosed Vancomycin. Vanco 1 gram administered 11/14@2100, then will begin 1 gram IV Q8Hour regimen 11/15@12 mid. First trough is scheduled for 11/15@1500-prior to the 4th dose)-Will continu e to follow labs and will make dose adjustments as needed MILAGRO RUVALCABA [facility] Nov 18, 2018 14:11
[2018-11-18] MEDS: VANCOMYCIN HCL 500 MG in D5W MINI-BAG PLUS 100 ML IV SCH (14:23)
[2018-11-18 22:00] VITALS: BP 123/79
[2018-11-19] MEDS: PINK BISMUTH SUSP 524MG/30ML ORAL SYRINGE PO SCH ×5 (00:32→23:44)
[2018-11-19] MEDS: MESALAMINE 250 MG CR CAP PO SCH ×5 (00:32→23:44)
[2018-11-19] MEDS: VANCOMYCIN HCL 1,000 MG, VIAL MATE ADAPTER 1 EACH in D5W 250 ML IV SCH ×2 (01:55→13:57)
[2018-11-19] MEDS: VANCOMYCIN HCL 500 MG in D5W MINI-BAG PLUS 100 ML IV SCH (03:57)
--- NOTE | 2018-11-19 05:38 | IPNPDOC ---
Text Note Date of Service The patient was seen on 11/18/18. NOTE Pt was seen and examined at bedside. Pt reports improvement in diarrhea. Denies any fever, any bloody diarrhea. Denies any cough or dyspnea. PHE: Gen: AAOx3 NAD HEENT: FILI EOMI neck supple no JVD CVS: S1 S2 no murmur Lung: no rales no wheezing clear bilat Abdomen: soft NT ND Ext: no cyanosis no edema no tenderness Neuro: sensory motor intact Vital Signs Date Time Temp Pulse Resp B/P (MAP) Pulse Ox O2 Delivery O2 Flow Rate FiO2 11/18/18 14:00 97.1 71 16 122/79 (93) 99 11/18/18 06:00 98.0 67 18 125/76 (92) 98 11/17/18 22:00 98.4 61 18 121/73 (89) 98 Intake & Output 11/18/18 06:00 Intake Total 6250 ml Output Total 925 ml Balance 5325 ml Laboratory Tests 11/18/18 06:00: White Blood Count 9.1, Red Blood Count 4.13L, Hemoglobin 12.5L, Hematocrit 37.2L, Mean Corpuscular Volume 90.1, Mean Corpuscular Hemoglobin 30.3, Mean Corpuscular Hemoglobin Concent 33.6, Red Cell Distribution Width 14.6H, Platelet Count 177, Neutrophils (%) (Auto) 82.9H, Lymphocytes (%) (Auto) 9.5L, Monocytes (%) (Auto) 5.4H, Eosinophils (%) (Auto) 0.2, Basophils (%) (Auto) 0.2, Neutrophils # (Auto) 7.6, Lymphocytes # (Auto) 0.9L, Monocytes # (Auto) 0.5, Eosinophils # (Auto) 0.0, Basophils # (Auto) 0.0, Immature Granulocyte % (Auto) 1.8, Nucleated Red Blood Cells % (auto) 0.0, Blood Urea Nitrogen 17, Creatinine 0.78, Sodium Level 139, Potassium Level 4.1, Chloride Level 114H, Carbon Dioxide Level 18L, Calcium Level 7.4L, Anion Gap 7L, Glomerular Filtration Rate > 60.0, Fasting Glucose 102H, Magnesium Level 2.1 11/18/18 09:57: Vancomycin Level Trough 22.6H Microbiology 11/14/18 Gastrointestinal Tract Panel (PCR) - Final, Complete 11/15/18 MRSA Screen - Final, Complete 11/15/18 Gram Stain - Final, Complete 11/15/18 Sputum Culture - Final, Complete Staph.aureus Methicillin Resis Current Medications Medications (Trade) Dose Ordered Sig/Elza Route PRN Reason Start Time Stop Time Status Last Admin Dose Admin Acetaminophen (Tylenol Tab) 650 mg Q6H PRN PO PAIN 11/14/18 17:15 11/17/18 06:28 650 MG Artificial Tears (Akwa Tears) 2 drop TIDP PRN OU DRY EYES 11/16/18 11:00 11/16/18 10:52 2 DROP Bismuth Subsalicylate (Pepto Bismol) 30 ml Q6H PO 11/15/18 12:00 11/18/18 17:56 30 ML Calcium Carbonate (Tums) 1,000 mg Q4HP PRN PO HEARTBURN 11/15/18 00:15 11/15/18 00:39 1,000 MG Cetylpyridinium Chloride (Cepacol) 1 jaxson Q1HP PRN PO COUGH 11/16/18 15:30 11/17/18 06:28 1 JAXSON Diphenoxylate HCl/ Atropine (Lomotil 2.5mg/ 0.025mg) 1 ea ACHS PO 11/15/18 17:30 11/18/18 17:56 1 EA Enoxaparin Sodium (Lovenox) 40 mg DAILY SC 11/15/18 09:00 11/18/18 08:17 40 MG Lactated Ringer's 1,000 ml @ 75 mls/hr [id number] IV 11/17/18 19:30 11/18/18 09:13 75 MLS/HR Lactobacillus Acidophilus (Bacid) 2 ea BID PO 11/14/18 21:00 11/18/18 08:15 2 EA Mesalamine (Pentasa) 1,000 mg Q6H PO 11/15/18 12:00 11/18/18 17:56 1,000 MG Methylprednisolone (SOLU medrol) 20 mg Q6H IV 11/15/18 18:00 11/18/18 23:59 11/18/18 17:56 20 MG Multivitamins (Theragram-M) 1 tab DAILY PO 11/15/18 09:00 11/18/18 08:15 1 TAB Omeprazole (PriLOSEC) 20 mg DAILY PO 11/17/18 09:00 11/18/18 08:16 20 MG Potassium Chloride (Micro-K Extencaps) 40 meq BID PO 11/16/18 09:00 11/18/18 08:16 40 MEQ Psyllium Hydrophilic Mucilloid (Metamucil) 1 pkt BID PO 11/14/18 21:00 11/18/18 08:16 1 PKT Sodium Bicarbonate (Sodium Bicarbonate) 650 mg QID PO 11/15/18 09:00 11/18/18 17:56 650 MG Vancomycin HCl 500 mg/Dextrose 110 ml @ 110 mls/hr Q12H IV 11/18/18 15:00 11/18/18 14:23 110 MLS/HR Vancomycin HCl 1000 mg/IV Miscellaneous Supplies 1 each/ Dextrose 270 ml @ 270 mls/hr Q12H IV 11/18/18 14:00 11/18/18 14:00 270 MLS/HR A/P 1-Inflammatory Bowel Disease likely Crohn's Disease admitted for profuse diarrhea s/p prednisone, budesonide and sulfasalazine with improvement for a few weeks diarrhea has recurred apparently after lowering steroids Cont Slumedrol Dr Seo plan to start anti TNF as outpt GI panel negative 2-Hypokalemia In view of profuse diarrhea improved continue oral replacement 3-Metabolic acidosis normal anion gap due to diarrhea improving oral repletion 4-Pneumonia likely necrotizing pneumonia from MRSA s/p bronchoscopy Pending full BAL report sputum cx with MRSA check infectious markers, procal, beta d glucan, galactomannan pulmonary following Dr Sánchez input appreciated will hold off on further cardiac w/u for now VS,Fishbone, I+O VS, Fishbone, I+O Laboratory Tests 11/18/18 06:00 Red Blood Count 4.13 L, Mean Corpuscular Volume 90.1, Mean Corpuscular Hemoglobin 30.3, Mean Corpuscular Hemoglobin Concent 33.6, Red Cell Distribution Width 14.6 H, Neutrophils (%) (Auto) 82.9 H, Lymphocytes (%) (Auto) 9.5 L, Monocytes (%) (Auto) 5.4 H, Eosinophils (%) (Auto) 0.2, Basophils (%) (Auto) 0.2, Neutrophils # (Auto) 7.6, Lymphocytes # (Auto) 0.9 L, Monocytes # (Auto) 0.5, Eosinophils # (Auto) 0.0, Basophils # (Auto) 0.0, Calcium Level 7.4 L Vital Signs Date Time Temp Pulse Resp B/P (MAP) Pulse Ox O2 Delivery O2 Flow Rate FiO2 11/18/18 14:00 97.1 71 16 122/79 (93) 99 11/14/18 17:30 Room Air I&O- Last 24 Hours up to 6 AM 11/18/18 06:00 Intake Total 6250 ml Output Total 925 ml Balance 5325 ml CECI JACOB MD Nov 18, 2018 18:58
[2018-11-19 06:00] VITALS: BP 121/67
[2018-11-19] MEDS: methylPREDNISolone INJ 40 MG/1 ML VIAL (J2920) IV SCH ×2 (06:20→18:54)
[2018-11-19 06:21] VITALS: BP 121/67
[2018-11-19] MEDS: LOMOTIL 2.5MG/0.025MG TABLET PO SCH ×4 (08:49→21:02)
[2018-11-19] MEDS: METAMUCIL (PSYLLIUM) PACKET PO SCH ×2 (08:49→21:02)
[2018-11-19] MEDS: OMEPRAZOLE 20 MG CAP PO SCH (08:49)
[2018-11-19] MEDS: MULTIVITAMINS/MINERALS THERAP 1 TAB PO SCH (08:49)
[2018-11-19] MEDS: LACTOBACILLUS ACIDOPHILUS CAP (BACID) PO SCH ×2 (08:50→21:02)
[2018-11-19] MEDS: POTASSIUM CHLORIDE 10 MEQ SR TABLET PO SCH ×2 (08:50→21:03)
[2018-11-19] MEDS: SODIUM BICARBONATE 325 MG TAB PO SCH ×4 (08:50→21:02)
[2018-11-19] MEDS: ENOXAPARIN 40 MG/0.4 ML SYRINGE (J1650) SC SCH (08:51)
[2018-11-19] MEDS: LR 1,000 ML IV SCH (08:52)
[2018-11-19 14:00] VITALS: BP 119/74
[2018-11-19] MEDS: POLYVINYL ALCOHOL OPHTH SOLN 15 ML(LIQUITEARS) OU PRN (15:43)
--- NOTE | 2018-11-19 16:03 | PHACANCOPD ---
PHARMACY VANCOMYCIN DOSING Pt Demographics Demographics Patient Age:48 , Weight:101.600 , Gender: male Adjusted Body Weight Date: 11/15/18, Adjusted Body Weight: [91.34] Kg Events Past 24 Hours Events Past 24 Hours: NO: Dialysis, Diuretic Therapy, Change in CrCl, Fever, Elevation in WBC, Pending Diagnostics, Pending Procedures, Other Vancomycin Vancomycin indication: CAVITARY LUNG LESION-HX STAPH Vancomycin Target Ranges: 15-20 mcg/ml Vancomycin Load Y/N: Yes Load Dose Date Time Vancomycin Load Dose: 2G Date: 11/17/18 Time: 11:00 Vancomycin Dose Date: 11/19/18. Current Vancomycin Dose: [1g IV q12h @06] Date: 11/18/18. Current Vancomycin Dose: [1500MG IV Q12H@4] Date: 11/17/18. Current Vancomycin Dose: [1G IV Q8H @11:00 (RESTARTED)] Date: 11/15/18. Current Vancomycin Dose: [1GM@21,THEN Q8H@12MID] Intermittent Dosing?: No Labs Labs Item Value Date Time White Blood Count 13.6 10^3/uL H 11/16/18 0536 White Blood Count 13.4 10^3/uL H 11/17/18 0536 White Blood Count 9.1 10^3/uL 11/18/18 0600 Vancomycin Level Trough 22.6 UG/ML H 11/18/18 0957 Vancomycin Level Trough 22.3 UG/ML H 11/19/18 1246 Creatinine 0.90 MG/DL 11/16/18 0536 Creatinine 0.92 MG/DL 11/17/18 0536 Creatinine 0.78 MG/DL 11/18/18 0600 Micro Microbiology 11/14/18 Blood Culture - Final, Complete NO GROWTH AFTER 5 DAYS 11/14/18 Blood Culture - Final, Complete NO GROWTH AFTER 5 DAYS 11/14/18 Gastrointestinal Tract Panel (PCR) - Final, Complete 11/16/18 Acid Fast Stain - Final, Resulted 11/16/18 Mycobacterial Culture, Resulted Pending 11/16/18 Fungal Smear, Resulted Pending 11/16/18 Fungal Culture, Resulted Pending 11/16/18 Acid Fast Stain - Final, Resulted 11/16/18 Mycobacterial Culture, Resulted Pending 11/16/18 Fungal Smear, Resulted Pending 11/16/18 Fungal Culture, Resulted Pending 11/16/18 Acid Fast Stain - Final, Resulted 11/16/18 Mycobacterial Culture, Resulted Pending 11/16/18 Fungal Smear, Resulted Pending 11/16/18 Fungal Culture, Resulted Pending 11/16/18 Gram Stain - Final, Complete 11/16/18 Bronchoalveolar Lavage Culture - Final, Complete Staphylococcus Aureus 11/16/18 Gram Stain - Final, Complete 11/16/18 Bronchoalveolar Lavage Culture - Final, Complete Staphylococcus Aureus 11/16/18 Gram Stain - Final, Complete 11/16/18 Bronchial Aspirate Culture - Final, Complete Staphylococcus Aureus 11/16/18 Acid Fast Stain - Final, Resulted 11/16/18 Mycobacterial Culture, Resulted Pending 11/16/18 Fungal Smear, Resulted Pending 11/16/18 Fungal Culture, Resulted Pending 11/16/18 Gram Stain - Final, Complete 11/16/18 Bronchoalveolar Lavage Culture - Final, Complete Staphylococcus Aureus 11/15/18 MRSA Screen - Final, Complete 11/15/18 Gram Stain - Final, Complete 11/15/18 Sputum Culture - Final, Complete Staph.aureus Methicillin Resis Creatinine Clearance Date:11/19/18. Creatinine Clearance: [>100 ml/min]. Date:11/15/18. Creatinine Clearance: [124ML/MIN].CALCULATED Assessment and Plan Maintaining Current Dose?: No Reason for dose change: Trough too high Pharmacist Note Pharmacist Note Date: 11/19/18. Pharmacist note: repeat vancomycin trough this afternoon was still elevated at 22.3 mcg/ml. He received a 1g IV vancomycin dose this afternoon at ~14:00, and I have reduced his dosing to 1g IV q12h to restart tomorrow morning at 06:00 (~16 hours later). Sputum culture + for MRSA (LEONA = 1), BAL cultures + for MSSA. Inflammatory markers are trending down. We will continue to monitor. 11/18: Today is day 2 of treatment with Vancomycin and his trough resulted at 22.6. He was given a 4 hour washout period and restarted at 1400 on Vancomycin 1500mg IV q12h. We will redraw his trough tomorrow at 1300 to make sure his level is therapeutic. Date: 11/17/18. Pharmacist note:The pt is being restarted on vancomycin this morning. The last dose was 11/15 @10:00. The patient will be reloaded with 2g va ncomycin IV @11:00 today. Maintenance therapy will consist of 1g IV every 8 hours. A trough is scheduled 11/18/18 @ 10:00. We will continue to monitor and adjust the dose as needed. Date: 11/15/18. Pharmacist note: 48YOM Admitted w/cavitary lung lesion.SCR=1. 24,CRCL=92.1Calculated.,Allergies:latex,Codeine,Epinephrine .To receive Pip/Tazo 4.5 grams IV [id number] and Pharmacy dosed Vancomycin. Vanco 1 gram administered 11/14@2100, then will begin 1 gram IV Q8Hour regimen 11/15@12 mid. First trough is scheduled for 11/15@1500-prior to the 4th dose)-Will continue to follow labs and will make dose adjustments as needed Joon Marquez Pharm.D. Nov 19, 2018 16:03
--- NOTE | 2018-11-19 19:03 | IPNPDOC ---
Text Note Date of Service The patient was seen on 11/19/18. NOTE Pt is comfortable in bed. No acute distress. Discussed with pulmonary attending regarding plan. BAL revealed MSSA, AFB and fungal pending. Pt need to take anti MRSA for at least three weeks in view of positive MRSA in sputum and immunosuppressed condition. PHE: Gen: AAOx3 NAD HEENT: FILI EOMI neck supple no JVD CVS: S1 S2 no murmur Lung: no rales no wheezing clear bilat Abdomen: soft NT ND Ext: no cyanosis no edema no tenderness Neuro: sensory motor intact Vital Signs Date Time Temp Pulse Resp B/P (MAP) Pulse Ox O2 Delivery O2 Flow Rate FiO2 11/19/18 14:00 98.0 62 18 119/74 (89) 100 11/19/18 06:00 97.4 56 18 121/67 (85) 97 11/18/18 22:00 97.1 64 18 123/79 (94) 99 Intake & Output 11/19/18 05:59 Intake Total 4515 ml Output Total 3050 ml Balance 1465 ml Laboratory Tests 11/19/18 12:46: Vancomycin Level Trough 22.3H Microbiology 11/14/18 Blood Culture - Final, Complete NO GROWTH AFTER 5 DAYS 11/14/18 Blood Culture - Final, Complete NO GROWTH AFTER 5 DAYS 11/14/18 Gastrointestinal Tract Panel (PCR) - Final, Complete 11/16/18 Gram Stain - Final, Complete 11/16/18 Bronchoalveolar Lavage Culture - Final, Complete Staphylococcus Aureus 11/16/18 Gram Stain - Final, Complete 11/16/18 Bronchoalveolar Lavage Culture - Final, Complete Staphylococcus Aureus 11/16/18 Gram Stain - Final, Complete 11/16/18 Bronchial Aspirate Culture - Final, Complete Staphylococcus Aureus 11/16/18 Gram Stain - Final, Complete 11/16/18 Bronchoalveolar Lavage Culture - Final, Complete Staphylococcus Aureus 11/15/18 MRSA Screen - Final, Complete 11/15/18 Gram Stain - Final, Complete 11/15/18 Sputum Culture - Final, Complete Staph.aureus Methicillin Resis Current Medications Medications (Trade) Dose Ordered Sig/Elza Route PRN Reason Start Time Stop Time Status Last Admin Dose Admin Acetaminophen (Tylenol Tab) 650 mg Q6H PRN PO PAIN 11/14/18 17:15 11/17/18 06:28 650 MG Artificial Tears (Akwa Tears) 2 drop TIDP PRN OU DRY EYES 11/16/18 11:00 11/19/18 15:43 2 DROP Bismuth Subsalicylate (Pepto Bismol) 30 ml Q6H PO 11/15/18 12:00 11/19/18 18:54 30 ML Calcium Carbonate (Tums) 1,000 mg Q4HP PRN PO HEARTBURN 11/15/18 00:15 11/15/18 00:39 1,000 MG Cetylpyridinium Chloride (Cepacol) 1 jaxson Q1HP PRN PO COUGH 11/16/18 15:30 11/17/18 06:28 1 JAXSON Diphenoxylate HCl/ Atropine (Lomotil 2.5mg/ 0.025mg) 1 ea ACHS PO 11/15/18 17:30 11/19/18 17:30 1 EA Enoxaparin Sodium (Lovenox) 40 mg DAILY SC 11/15/18 09:00 11/19/18 08:51 40 MG Lactated Ringer's 1,000 ml @ 75 mls/hr [id number] IV 11/17/18 19:30 11/19/18 08:52 75 MLS/HR Lactobacillus Acidophilus (Bacid) 2 ea BID PO 11/14/18 21:00 11/19/18 08:50 2 EA Mesalamine (Pentasa) 1,000 mg Q6H PO 11/15/18 12:00 11/19/18 18:53 1,000 MG Methylprednisolone (SOLU medrol) 20 mg Q12H IV 11/19/18 06:00 11/19/18 18:54 20 MG Multivitamins (Theragram-M) 1 tab DAILY PO 11/15/18 09:00 11/19/18 08:49 1 TAB Omeprazole (PriLOSEC) 20 mg DAILY PO 11/17/18 09:00 11/19/18 08:49 20 MG Potassium Chloride (Micro-K Extencaps) 40 meq BID PO 11/16/18 09:00 11/19/18 08:50 40 MEQ Psyllium Hydrophilic Mucilloid (Metamucil) 1 pkt BID PO 11/14/18 21:00 11/19/18 08:49 1 PKT Sodium Bicarbonate (Sodium Bicarbonate) 650 mg QID PO 11/15/18 09:00 11/19/18 17:00 650 MG A/P 1-Inflammatory Bowel Disease likely Crohn's Disease admitted for profuse diarrhea s/p prednisone, budesonide and sulfasalazine with improvement for a few weeks diarrhea has recurred apparently after lowering steroids Cont Slumedrol Dr Seo plan to start anti TNF as outpt GI panel negative 2-Hypokalemia In view of profuse diarrhea improved continue oral replacement 3-Metabolic acidosis normal anion gap due to diarrhea improving oral repletion 4-Pneumonia likely necrotizing pneumonia from MRSA s/p bronchoscopy Pending full BAL report sputum cx with MRSA check infectious markers, procal, beta d glucan, galactomannan pulmonary following Pt requires anti MRSA for at least three weeks Dr Sánchez input appreciated will hold off on further cardiac w/u for now VS,Fishbone, I+O VS, Fishbone, I+O Vital Signs Date Time Temp Pulse Resp B/P (MAP) Pulse Ox O2 Delivery O2 Flow Rate FiO2 11/19/18 14:00 98.0 62 18 119/74 (89) 100 11/14/18 17:30 Room Air I&O- Last 24 Hours up to 6 AM 11/19/18 05:59 Intake Total 4515 ml Output Total 3050 ml Balance 1465 ml CECI JACOB MD Nov 19, 2018 19:03
[2018-11-19 22:08] VITALS: BP 121/71
[2018-11-20] MEDS: LR 1,000 ML IV SCH ×2 (02:00→17:38)
[2018-11-20 05:30] VITALS: BP 119/69
[2018-11-20] MEDS: MESALAMINE 250 MG CR CAP PO SCH ×3 (06:13→17:38)
[2018-11-20] MEDS: PINK BISMUTH SUSP 524MG/30ML ORAL SYRINGE PO SCH ×3 (06:13→17:38)
[2018-11-20] MEDS: methylPREDNISolone INJ 40 MG/1 ML VIAL (J2920) IV SCH (06:13)
[2018-11-20] MEDS: VANCOMYCIN HCL 1,000 MG, VIAL MATE ADAPTER 1 EACH in D5W 250 ML IV SCH ×2 (06:14→17:38)
[2018-11-20] MEDS: OMEPRAZOLE 20 MG CAP PO SCH (08:17)
[2018-11-20] MEDS: METAMUCIL (PSYLLIUM) PACKET PO SCH (08:17)
[2018-11-20] MEDS: LOMOTIL 2.5MG/0.025MG TABLET PO SCH ×4 (08:17→21:13)
[2018-11-20] MEDS: LACTOBACILLUS ACIDOPHILUS CAP (BACID) PO SCH ×2 (08:17→21:13)
[2018-11-20] MEDS: SODIUM BICARBONATE 325 MG TAB PO SCH ×4 (08:17→21:13)
[2018-11-20] MEDS: POTASSIUM CHLORIDE 10 MEQ SR TABLET PO SCH ×2 (08:17→21:13)
[2018-11-20] MEDS: ENOXAPARIN 40 MG/0.4 ML SYRINGE (J1650) SC SCH (08:17)
[2018-11-20] MEDS: MULTIVITAMINS/MINERALS THERAP 1 TAB PO SCH (08:17)
[2018-11-20] MEDS ORDERED: ZYVO1TAB PO ×2 (08:53→11:15)
[2018-11-20] MEDS ORDERED: MESA800T8 PO (11:25)
[2018-11-20] MEDS ORDERED: DELT1TAB PO (11:27)
[2018-11-20] MEDS ORDERED: LOMO2.5T PO (11:29)
[2018-11-20] MEDS ORDERED: LOPERAMIDE 2 MG CAP PO PRN (12:45)
[2018-11-20] MEDS: LOPERAMIDE 2 MG CAP PO SCH ×2 (14:03→21:13)
[2018-11-20] MEDS: CHOLESTYRAMINE 4 GM PWD PKT PO SCH ×2 (14:03→21:14)
[2018-11-20 15:21] VITALS: BP 112/70
[2018-11-20 22:00] VITALS: BP 112/70
[2018-11-21] MEDS: MESALAMINE 250 MG CR CAP PO SCH ×5 (00:02→23:49)
[2018-11-21] MEDS: PINK BISMUTH SUSP 524MG/30ML ORAL SYRINGE PO SCH ×5 (00:02→23:49)
[2018-11-21 06:00] VITALS: BP 110/67
[2018-11-21] MEDS: VANCOMYCIN HCL 1,000 MG, VIAL MATE ADAPTER 1 EACH in D5W 250 ML IV SCH ×2 (06:01→18:35)
[2018-11-21] MEDS: LR 1,000 ML IV SCH ×2 (06:50→23:25)
[2018-11-21] MEDS: methylPREDNISolone INJ 40 MG/1 ML VIAL (J2920) IV SCH (08:53)
[2018-11-21] MEDS: LACTOBACILLUS ACIDOPHILUS CAP (BACID) PO SCH ×2 (08:54→20:27)
[2018-11-21] MEDS: ENOXAPARIN 40 MG/0.4 ML SYRINGE (J1650) SC SCH (08:54)
[2018-11-21] MEDS: POTASSIUM CHLORIDE 10 MEQ SR TABLET PO SCH ×2 (08:54→20:27)
[2018-11-21] MEDS: LOMOTIL 2.5MG/0.025MG TABLET PO SCH ×4 (08:55→20:27)
[2018-11-21] MEDS: predniSONE 10 MG TAB PO SCH (08:55)
[2018-11-21] MEDS: CHOLESTYRAMINE 4 GM PWD PKT PO SCH ×3 (08:55→20:27)
[2018-11-21] MEDS: LOPERAMIDE 2 MG CAP PO SCH ×3 (08:55→20:27)
[2018-11-21] MEDS: OMEPRAZOLE 20 MG CAP PO SCH (08:55)
[2018-11-21] MEDS: MULTIVITAMINS/MINERALS THERAP 1 TAB PO SCH (08:55)
[2018-11-21] MEDS: SODIUM BICARBONATE 325 MG TAB PO SCH ×2 (08:56→13:20)
[2018-11-21 14:00] VITALS: BP 109/69
--- NOTE | 2018-11-21 15:37 | IPNPDOC ---
Text Note Date of Service The patient was seen on 11/20/18. NOTE Pt is comfortable in bed. No acute distress. Discussed with pulmonary attending regarding plan. BAL revealed MSSA, AFB and fungal pending. Pt need to take anti MRSA for at least three weeks in view of positive MRSA in sputum and immunosuppressed condition. Pt continues to have diarrhea. 8-10 BM per day. Diarrhea is watery without blood no fever. PHE: Gen: AAOx3 NAD HEENT: FILI EOMI neck supple no JVD CVS: S1 S2 no murmur Lung: no rales no wheezing clear bilat Abdomen: soft NT ND Ext: no cyanosis no edema no tenderness Neuro: sensory motor intact Vital Signs Date Time Temp Pulse Resp B/P (MAP) Pulse Ox O2 Delivery O2 Flow Rate FiO2 11/19/18 14:00 98.0 62 18 119/74 (89) 100 11/19/18 06:00 97.4 56 18 121/67 (85) 97 11/18/18 22:00 97.1 64 18 123/79 (94) 99 Intake & Output 11/19/18 05:59 Intake Total 4515 ml Output Total 3050 ml Balance 1465 ml Laboratory Tests 11/19/18 12:46: Vancomycin Level Trough 22.3H Microbiology 11/14/18 Blood Culture - Final, Complete NO GROWTH AFTER 5 DAYS 11/14/18 Blood Culture - Final, Complete NO GROWTH AFTER 5 DAYS 11/14/18 Gastrointestinal Tract Panel (PCR) - Final, Complete 11/16/18 Gram Stain - Final, Complete 11/16/18 Bronchoalveolar Lavage Culture - Final, Complete Staphylococcus Aureus 11/16/18 Gram Stain - Final, Complete 11/16/18 Bronchoalveolar Lavage Culture - Final, Complete Staphylococcus Aureus 11/16/18 Gram Stain - Final, Complete 11/16/18 Bronchial Aspirate Culture - Final, Complete Staphylococcus Aureus 11/16/18 Gram Stain - Final, Complete 11/16/18 Bronchoalveolar Lavage Culture - Final, Complete Staphylococcus Aureus 11/15/18 MRSA Screen - Final, Complete 11/15/18 Gram Stain - Final, Complete 11/15/18 Sputum Culture - Final, Complete Staph.aureus Methicillin Resis Current Medications Medications (Trade) Dose Ordered Sig/Elza Route PRN Reason Start Time Stop Time Status Last Admin Dose Admin Acetaminophen (Tylenol Tab) 650 mg Q6H PRN PO PAIN 11/14/18 17:15 7/2/19 06:28 650 MG Artificial Tears (Akwa Tears) 2 drop TIDP PRN OU DRY EYES 11/16/18 11:00 11/19/18 15:43 2 DROP Bismuth Subsalicylate (Pepto Bismol) 30 ml Q6H PO 11/15/18 12:00 11/19/18 18:54 30 ML Calcium Carbonate (Tums) 1,000 mg Q4HP PRN PO HEARTBURN 11/15/18 00:15 11/15/18 00:39 1,000 MG Cetylpyridinium Chloride (Cepacol) 1 jaxson Q1HP PRN PO COUGH 11/16/18 15:30 11/17/18 06:28 1 JAXSON Diphenoxylate HCl/ Atropine (Lomotil 2.5mg/ 0.025mg) 1 ea ACHS PO 11/15/18 17:30 11/19/18 17:30 1 EA Enoxaparin Sodium (Lovenox) 40 mg DAILY SC 11/15/18 09:00 11/19/18 08:51 40 MG Lactated Ringer's 1,000 ml @ 75 mls/hr [id number] IV 11/17/18 19:30 11/19/18 08:52 75 MLS/HR Lactobacillus Acidophilus (Bacid) 2 ea BID PO 11/14/18 21:00 11/19/18 08:50 2 EA Mesalamine (Pentasa) 1,000 mg Q6H PO 11/15/18 12:00 11/19/18 18:53 1,000 MG Methylprednisolone (SOLU medrol) 20 mg Q12H IV 11/19/18 06:00 11/19/18 18:54 20 MG Multivitamins (Theragram-M) 1 tab DAILY PO 11/15/18 09:00 11/19/18 08:49 1 TAB Omeprazole (PriLOSEC) 20 mg DAILY PO 11/17/18 09:00 11/19/18 08:49 20 MG Potassium Chloride (Micro-K Extencaps) 40 meq BID PO 11/16/18 09:00 11/19/18 08:50 40 MEQ Psyllium Hydrophilic Mucilloid (Metamucil) 1 pkt BID PO 11/14/18 21:00 11/19/18 08:49 1 PKT Sodium Bicarbonate (Sodium Bicarbonate) 650 mg QID PO 11/15/18 09:00 11/19/18 17:00 650 MG A/P 1-Inflammatory Bowel Disease likely Crohn's Disease admitted for profuse diarrhea, not resolevd s/p prednisone, budesonide and sulfasalazine with improvement for a few weeks prior to current admission diarrhea has recurred apparently after lowering steroids Cont Slumedrol Dr Seo plan to start anti TNF as outpt GI panel negative 2-Hypokalemia In view of profuse diarrhea improved continue oral replacement 3-Non AG Metabolic acidosis due to diarrhea improving NaHCO3 decreased 4-Pneumonia likely necrotizing pneumonia from MRSA s/p bronchoscopy Pending full BAL report sputum cx with MRSA check infectious markers, procal, beta d glucan, galactomannan pulmonary following Pt requires anti MRSA for at least three weeks Dr Sánchez input appreciated will hold off on further cardiac w/u for now DVt Prophylaxis: Lovenox VS,Fishbone, I+O VS, Fishbone, I+O Vital Signs Date Time Temp Pulse Resp B/P (MAP) Pulse Ox O2 Delivery O2 Flow Rate FiO2 11/21/18 14:00 98.0 83 16 109/69 (82) 95 I&O- Last 24 Hours up to 6 AM 11/21/18 06:00 Intake Total 3985 ml Output Total 2175 ml Balance 1810 ml CECI JACOB MD Nov 21, 2018 15:37
--- NOTE | 2018-11-21 18:51 | PHACANCOPD ---
PHARMACY VANCOMYCIN DOSING Pt Demographics Demographics Patient Age:48 , Weight:101.600 , Gender: male Adjusted Body Weight Date: 11/15/18, Adjusted Body Weight: [91.34] Kg Events Past 24 Hours Events Past 24 Hours: NO: Dialysis, Diuretic Therapy, Change in CrCl, Fever, Elevation in WBC, Pending Diagnostics, Pending Procedures, Other Vancomycin Vancomycin indication: CAVITARY LUNG LESION-HX STAPH Vancomycin Target Ranges: 15-20 mcg/ml Vancomycin Load Y/N: Yes Load Dose Date Time Vancomycin Load Dose: 2G Date: 11/17/18 Time: 11:00 Vancomycin Dose Date: 11/19/18. Current Vancomycin Dose: [1g IV q12h @06] Date: 11/18/18. Current Vancomycin Dose: [1500MG IV Q12H@4] Date: 11/17/18. Current Vancomycin Dose: [1G IV Q8H @11:00 (RESTARTED)] Date: 11/15/18. Current Vancomycin Dose: [1GM@21,THEN Q8H@12MID] Intermittent Dosing?: No Labs Labs Item Value Date Time Creatinine 0.90 MG/DL 11/16/18 0536 Creatinine 0.92 MG/DL 11/17/18 0536 Creatinine 0.78 MG/DL 11/18/18 0600 Vancomycin Level Trough 22.3 UG/ML H 11/19/18 1246 Vancomycin Level Trough 15.6 UG/ML 11/21/18 1717 Micro Microbiology 11/14/18 Blood Culture - Final, Complete NO GROWTH AFTER 5 DAYS 11/14/18 Blood Culture - Final, Complete NO GROWTH AFTER 5 DAYS 11/14/18 Gastrointestinal Tract Panel (PCR) - Final, Complete 11/16/18 Acid Fast Stain - Final, Resulted 11/16/18 Mycobacterial Culture, Resulted Pending 11/16/18 Fungal Smear, Resulted Pending 11/16/18 Fungal Culture, Resulted Pending 11/16/18 Acid Fast Stain - Final, Resulted 11/16/18 Mycobacterial Culture, Resulted Pending 11/16/18 Fungal Smear, Resulted Pending 11/16/18 Fungal Culture, Resulted Pending 11/16/18 Acid Fast Stain - Final, Resulted 11/16/18 Mycobacterial Culture, Resulted Pending 11/16/18 Fungal Smear, Resulted Pending 11/16/18 Fungal Culture, Resulted Pending 11/16/18 Gram Stain - Final, Complete 11/16/18 Bronchoalveolar Lavage Culture - Final, Complete Staphylococcus Aureus 11/16/18 Gram Stain - Final, Complete 11/16/18 Bronchoalveolar Lavage Culture - Final, Complete Staphylococcus Aureus 11/16/18 Gram Stain - Final, Complete 11/16/18 Bronchial Aspirate Culture - Final, Complete Staphylococcus Aureus 11/16/18 Acid Fast Stain - Final, Resulted 11/16/18 Mycobacterial Culture, Resulted Pending 11/16/18 Fungal Smear, Resulted Pending 11/16/18 Fungal Culture, Resulted Pending 11/16/18 Gram Stain - Final, Complete 11/16/18 Bronchoalveolar Lavage Culture - Final, Complete Staphylococcus Aureus 11/15/18 MRSA Screen - Final, Complete 11/15/18 Gram Stain - Final, Complete 11/15/18 Sputum Culture - Final, Complete Staph.aureus Methicillin Resis Creatinine Clearance Date:11/19/18. Creatinine Clearance: [>100 ml/min]. Date:11/15/18. Creatinine Clearance: [124ML/MIN].CALCULATED Assessment and Plan Maintaining Current Dose?: Yes Reason for dose change: No Dose Change Pharmacist Note Pharmacist Note Date: 11/21/18. Pharmacist note: PT trough came back this evening at 15.6mcg/ml at 17:17. We will continue current dosing and continue to monitor and adjust the dose as needed. Date: 11/19/18. Pharmacist note: repeat vancomycin trough this afternoon was still elevated at 22.3 mcg/ml. He received a 1g IV vancomycin dose this afternoon at ~14:00, and I have reduced his dosing to 1g IV q12h to restart tomorrow morning at 06:00 (~16 hours later). Sputum culture + for MRSA (LEONA = 1), BAL cultures + for MSSA. Inflammatory markers are trending down. We will continue to monitor. 11/18: Today is day 2 of treatment with Vancomycin and his trough resulted at 22.6. He was given a 4 hour washout period and restarted at 1400 on Vancomycin 1500mg IV q12h. We will redraw his trough tomorrow at 1300 to make sure his level is therapeutic. Date: 11/17/18. Pharmacist note:The pt is being restarted on vancomycin this morning. The last dose was 11/15 @10:00. The patient will be reloaded with 2g vancomycin IV @11:00 today. Maintenance therapy will consist of 1g IV every 8 hours. A trough is scheduled 11/18/18 @ 10:00. We will continue to monitor and adjust the dose as needed. Date: 11/15/18. Pharmacist note: 48YOM Admitted w/cavitary lung lesion.SCR=1.24,CRCL=92.1Calculated.,Allergies:latex,Codeine,Epinephrine .To receive Pip/Tazo 4.5 grams IV [id number] and Pharmacy dosed Vancomycin. Vanco 1 gram administered 11/14@2100, then will begin 1 gram IV Q8Hour regimen 11/15@12 m id. First trough is scheduled for 11/15@1500-prior to the 4th dose)-Will continue to follow labs and will make dose adjustments as needed A[facility] Nov 21, 2018 18:51
[2018-11-21 22:00] VITALS: BP 125/75
--- NOTE | 2018-11-21 22:14 | IPNPDOC ---
Text Note Date of Service The patient was seen on 11/21/18. NOTE Pt was seen and examined at bedside. Pt is sitting in his chair no acute distress. Pt continues to have 8-10 watery diarrhea with no bleeding. Afebrile. Pt denies any cough or dyspnea. PHE: Gen: AAOx3 NAD HEENT: FILI EOMI neck supple no JVD CVS: S1 S2 no murmur Lung: no rales no wheezing clear bilat Abdomen: soft NT ND Ext: no cyanosis no edema no tenderness Neuro: sensory motor intact Vital Signs Date Time Temp Pulse Resp B/P (MAP) Pulse Ox O2 Delivery O2 Flow Rate FiO2 11/21/18 14:00 98.0 83 16 109/69 (82) 95 11/21/18 06:00 96.3 62 18 110/67 (81) 96 Intake & Output 11/21/18 06:00 Intake Total 3985 ml Output Total 2175 ml Balance 1810 ml Laboratory Tests 11/21/18 17:17: Vancomycin Level Trough 15.6 Microbiology 11/14/18 Blood Culture - Final, Complete NO GROWTH AFTER 5 DAYS 11/14/18 Blood Culture - Final, Complete NO GROWTH AFTER 5 DAYS 11/14/18 Gastrointestinal Tract Panel (PCR) - Final, Complete 11/16/18 Gram Stain - Final, Complete 11/16/18 Bronchoalveolar Lavage Culture - Final, Complete Staphylococcus Aureus 11/16/18 Gram Stain - Final, Complete 11/16/18 Bronchoalveolar Lavage Culture - Final, Complete Staphylococcus Aureus 11/16/18 Gram Stain - Final, Complete 11/16/18 Bronchial Aspirate Culture - Final, Complete Staphylococcus Aureus 11/16/18 Gram Stain - Final, Complete 11/16/18 Bronchoalveolar Lavage Culture - Final, Complete Staphylococcus Aureus 11/15/18 MRSA Screen - Final, Complete 11/15/18 Gram Stain - Final, Complete 11/15/18 Sputum Culture - Final, Complete Staph.aureus Methicillin Resis Current Medications Medications (Trade) Dose Ordered Sig/Elza Route PRN Reason Start Time Stop Time Status Last Admin Dose Admin Acetaminophen (Tylenol Tab) 650 mg Q6H PRN PO PAIN 11/14/18 17:15 11/17/18 06:28 650 MG Artificial Tears (Akwa Tears) 2 drop TIDP PRN OU DRY EYES 11/16/18 11:00 11/19/18 15:43 2 DROP Bismuth Subsalicylate (Pepto Bismol) 30 ml Q6H PO 11/15/18 12:00 11/21/18 18:35 30 ML Calcium Carbonate (Tums) 1,000 mg Q4HP PRN PO HEARTBURN 11/15/18 00:15 11/15/18 00:39 1,000 MG Cetylpyridinium Chloride (Cepacol) 1 jaxson Q1HP PRN PO COUGH 11/16/18 15:30 11/17/18 06:28 1 JAXSON Cholestyramine Resin (Questran) 2 gm TID PO 11/20/18 13:45 11/21/18 20:27 2 GM Diphenoxylate HCl/ Atropine (Lomotil 2.5mg/ 0.025mg) 1 ea ACHS PO 11/15/18 17:30 11/21/18 20:27 1 EA Enoxaparin Sodium (Lovenox) 40 mg DAILY SC 11/15/18 09:00 11/21/18 08:54 40 MG Lactated Ringer's 1,000 ml @ 75 mls/hr [id number] IV 11/17/18 19:30 11/21/18 06:50 75 MLS/HR Lactobacillus Acidophilus (Bacid) 2 ea BID PO 11/14/18 21:00 11/21/18 20:27 2 EA Loperamide HCl (Imodium) 2 mg TID PO 11/20/18 13:30 11/22/18 13:29 11/21/18 20:27 2 MG Mesalamine (Pentasa) 1,000 mg Q6H PO 11/15/18 12:00 11/21/18 18:35 1,000 MG Methylprednisolone (SOLU medrol) 20 mg DAILY IV 11/21/18 09:00 11/21/18 08:53 20 MG Multivitamins (Theragram-M) 1 tab DAILY PO 11/15/18 09:00 11/21/18 08:55 1 TAB Omeprazole (PriLOSEC) 20 mg DAILY PO 11/17/18 09:00 11/21/18 08:55 20 MG Potassium Chloride (Micro-K Extencaps) 40 meq BID PO 11/16/18 09:00 11/21/18 20:27 40 MEQ Prednisone (Deltasone) 30 mg DAILY PO 11/21/18 09:00 11/21/18 08:55 30 MG Vancomycin HCl 1000 mg/IV Miscellaneous Supplies 1 each/ Dextrose 270 ml @ 270 mls/hr Q12H IV 11/20/18 06:00 11/21/18 18:35 270 MLS/HR A/P 1-Inflammatory Bowel Disease likely Crohn's Disease as per previous colonoscopy and biopsy by Dr. Seo admitted for profuse diarrhea, not resolevd s/p prednisone, budesonide and sulfasalazine with improvement for a few weeks prior to current admission diarrhea has recurred apparently after lowering steroids Cont Solumedrol Dr Seo plan to start anti TNF as outpt GI panel negative 2-Hypokalemia In view of profuse diarrhea improved continue oral replacement 3-Non AG Metabolic acidosis due to diarrhea improving NaHCO3 decreased 4-Pneumonia likely necrotizing pneumonia from MRSA s/p bronchoscopy and BAL Pending full BAL report sputum cx with MRSA check infectious markers, procal, beta d glucan, galactomannan pulmonary following Pt requires anti MRSA for at least three weeks Dr Sánchez input appreciated will hold off on further cardiac w/u for now DVt Prophylaxis: Lovenox VS,Fishbone, I+O VS, Fishbone, I+O Vital Signs Date Time Temp Pulse Resp B/P (MAP) Pulse Ox O2 Delivery O2 Flow Rate FiO2 11/21/18 14:00 98.0 83 16 109/69 (82) 95 I&O- Last 24 Hours up to 6 AM 11/21/18 06:00 Intake Total 3985 ml Output Total 2175 ml Balance 1810 ml CECI JACOB MD Nov 21, 2018 22:14
[2018-11-22 06:00] VITALS: BP 122/69
[2018-11-22] MEDS: VANCOMYCIN HCL 1,000 MG, VIAL MATE ADAPTER 1 EACH in D5W 250 ML IV SCH (06:04)
[2018-11-22] MEDS: PINK BISMUTH SUSP 524MG/30ML ORAL SYRINGE PO SCH (06:04)
[2018-11-22] MEDS: MESALAMINE 250 MG CR CAP PO SCH (06:04)
[2018-11-22 07:14] LABS: HEMATOCRIT 34.8 % (42.0-52.0); HEMOGLOBIN 11.1 g/dl (13.5-17.5); MEAN CORPUSCULAR HEMOGLOBIN 29.4 pg (27.0-33.0); MEAN CORPUSCULAR HGB CONC 31.9 g/dl (32.0-36.5); MEAN CORPUSCULAR VOLUME 92.1 fl (80.0-96.0); PLATELET COUNT, AUTOMATED 189 10^3/uL (150-450); RED BLOOD COUNT 3.78 10^6/uL (4.30-6.10); WHITE BLOOD COUNT 8.4 10^3/uL (4.0-10.0)
[2018-11-22 07:54] LABS: ALBUMIN 2.1 GM/DL (3.2-5.2); ALT/SGPT 89 U/L (12-78); BILIRUBIN,TOTAL 0.3 MG/DL (0.2-1.0); BLOOD UREA NITROGEN 8 MG/DL (7-18); CALCIUM LEVEL 7.3 MG/DL (8.5-10.1); CARBON DIOXIDE LEVEL 26 MEQ/L (21-32); CHLORIDE LEVEL 113 MEQ/L (98-107); CREATININE FOR GFR 0.89 MG/DL (0.70-1.30); GLOMERULAR FILTRATION RATE > 60.0 (>56); GLUCOSE, FASTING 95 MG/DL (70-100); POTASSIUM SERUM 4.1 MEQ/L (3.5-5.1); SODIUM LEVEL 144 MEQ/L (136-145); TOTAL PROTEIN 4.3 GM/DL (6.4-8.2)
[2018-11-22 08:03] LABS: ERYTHROCYTE SEDIMENTATION RATE 7 mm/hr (0-20)
[2018-11-22] MEDS: methylPREDNISolone INJ 40 MG/1 ML VIAL (J2920) IV SCH (09:23)
[2018-11-22] MEDS: LOMOTIL 2.5MG/0.025MG TABLET PO SCH (09:24)
[2018-11-22] MEDS: POTASSIUM CHLORIDE 10 MEQ SR TABLET PO SCH (09:24)
[2018-11-22] MEDS: MULTIVITAMINS/MINERALS THERAP 1 TAB PO SCH (09:24)
[2018-11-22] MEDS: predniSONE 10 MG TAB PO SCH (09:24)
[2018-11-22] MEDS: LACTOBACILLUS ACIDOPHILUS CAP (BACID) PO SCH (09:24)
[2018-11-22] MEDS: CHOLESTYRAMINE 4 GM PWD PKT PO SCH (09:24)
[2018-11-22] MEDS: LOPERAMIDE 2 MG CAP PO SCH (09:25)
[2018-11-22] MEDS: ENOXAPARIN 40 MG/0.4 ML SYRINGE (J1650) SC SCH (09:25)
[2018-11-22] MEDS: OMEPRAZOLE 20 MG CAP PO SCH (09:25)
[2018-11-22] MEDS ORDERED: LOPE1CAP5 PO (10:34)
[2018-11-22] MEDS ORDERED: QUES4POW PO (10:35)
[2018-11-22] MEDS ORDERED: BACT800T5 PO (10:36)
--- NOTE | 2018-11-23 00:41 | DS.PDOC ---
Discharge Summary General Date of Admission Nov 14, 2018 at 17:08 Specialist/Consultants Involve: Florencio Seo Specialist/Consultants Involve ANALYSIS: Chronic diarrhea since 09/16/2018 of unknown etiology. At the present time, the patient's biopsies of colonoscopy plus ileoscopy suggested crypt abscesses and acute on chronic inflammation consistent with some form of inflammatory bowel disease. The patient either has Crohn's or an determine form of inflammatory bowel disease (IBD). PLAN: 1. Will be to try to treat this as inflammatory bowel disease with intravenous (IV) Solu-Medrol and will start Pentasa tablets. 2. The patient may have contracted the IBD from the eight months of Enbrel, which has been reported in the literature. Unfortunately, this may not be reversible, even though the drug has been stopped. The patient may need another anti-TNF and since the patient is having so many hospitalizations with diarrhea and hypokalemia, my recommendation would be to go with IV infusion starting with Remicade. We can start Remicade with a single dose as an attempt to rescue his colon from the inflammation, then continue with induction therapy. PLAN 1. IV Solu-Medrol. 2. Asacol 3 grams a day. 3. Lomotil on a scheduled basis while the patient has diarrhea. 4. High-fiber diet. 5. Will discuss with the patient the possibility of starting him on a another anti-TNF, such as Remicade. I will discuss this with the patient tomorrow. T DD: Florencio Seo MD 11/15/18 1348 Discharge Summary PROCEDURES PERFORMED DURING STAY: Bronchoscopy Findings: Bilateral Lung Abnormalities: Leta was normal, no endobronchial lesions or masses. There were thick mucoid secretions noted throughout the tracheobronchial tree but worse on the left side. There were thick white tenacious secretions noted in left main bronchus. Bronchoalveolar lavage was performed in the RML medial segment (B5), in the ALBA superior lingular segment (B4) and in the LLL anterior medial segments (B7 & B8) of the lung and sent for cell count, bacterial culture, fungal & AFB analysis and cytology. The return was mucoid. Mucous plugs were present in the return fluid. Impression: - Multiple pulmonary nodules on imaging - Bronchoalveolar lavage was performed in RML, lingula and LLL. ADMITTING DIAGNOSES: 1. Inflammatory Bowel Disease 2. Pneumonia, multi 3. Hypokalemia 4. Non AG Metabolic acidosis DISCHARGE DIAGNOSES: As above COMPLICATIONS/CHIEF COMPLAINT: Diarrhea,Metabolic Acidosis With Normal Anion Gap. HISTORY OF PRESENT ILLNESS: As per initial H&P 48 Y O m hx of asthma, previous treated for psoriatic arthritis with enbrel whi ch was stopped in august, admission in september for severe diarrhea which started after a colonoscopy, that stay was complicated by sergio, metabolic acidosis, and mssa pneumonia. He had a colonscopy which showed evidence of severe inflammation in the colon and ileum and he was felt to have Crohn disease. He was treated with steroids and sulfasalazine with improvement and discharged home. He now reports having severe diarrhea again for the past week. He describes about 8 watery BMs per day. The past two days he also is feeling sob. He denies fevers, cough, rash, arthralgias and night sweats. HOSPITAL COURSE: 1-Inflammatory Bowel Disease, likely Crohn's Disease as per previous colonoscopy and biopsy by Dr. Seo s/p prednisone, budesonide and sulfasalazine with improvement for a few weeks prior to current admission, diarrhea has recurred apparently after lowering steroids, pt was restarted on solumedrol, with improvement Dr Seo plan to start anti TNF as outpatient 2-Hypokalemia, In view of profuse diarrhea, improved with oral replacement 3-Non AG Metabolic acidosis, due to diarrhea, improved, NaHCO3 decreased 4-Pneumonia, possible MRSA Started on broad spectrum Abx, s/p bronchoscopy and BAL, Pending full BAL report sputum cx with MRSA check infectious markers, procal, beta d glucan, galactomannan Pt requires anti MRSA for at least three weeks Echocardiogram also did not show any evidence of vegetations DISCHARGE MEDICATIONS: Please see below. ALLERGIES: Please see below. PHYSICAL EXAMINATION ON DISCHARGE: VITAL SIGNS: Please see below. Gen: AAOx3 NAD HEENT: FILI EOMI neck supple no JVD CVS: S1 S2 no murmur Lung: no rales no wheezing clear bilat Abdomen: soft NT ND Ext: no cyanosis no edema no tenderness Neuro: sensory motor intact LABORATORY DATA: Please see below. IMAGING: * CT ABD/PEL; Impression: Diffusely fluid-filled small and large bowel suggesting enterocolitis. Hepatic steatosis. * CT Angio Chest: Impression: 1. No pulmonary embolus. 2. Subtle areas of infiltrate scattered within the left upper lobe and left lower lobe and to a much lesser extent the right lung base with few scattered right middle lobe and left sided pulmonary cysts/cavitation as measuring up to 2.1 cm. Findings most compatible with multifocal pneumonia and septic emboli. * Left Lower EXt Doppler Impression: No evidence for deep venous thrombosis. PROGNOSIS: Guarded ACTIVITY: As tolerated DIET: As tolerate, high Fiber DISCHARGE PLAN: DISPOSITION: 01 Home, Self-Care. DISCHARGE INSTRUCTIONS: 1. Cont. Supplemental Vitamins and fluids 2. Cont. Linezolid 3. Return to ED with any warning signs ITEMS TO FOLLOWUP ON ON OUTPATIENT: Follow With PCP Follow with GI clinic Dr. Seo Follow with Cardiology clinic follow with Pulm clinic DISCHARGE CONDITION: Stable, afebrile, no acute distress, continues to have 8- 10 watery diarrhea with no bleeding, no cough or dyspnea TIME SPENT ON DISCHARGE: Greater than 40 minutes. Vital Signs/I&Os Vital Signs Date Time Temp Pulse Resp B/P (MAP) Pulse Ox O2 Delivery O2 Flow Rate FiO2 11/22/18 06:00 97.8 70 18 122/69 (86) 96 I&O- Last 24 Hours up to 6 AM 11/23/18 06:00 Intake Total 480 ml Output Total 0 ml Balance 480 ml Laboratory Data Labs 24H Laboratory Tests 2 11/22/18 06:47: Nucleated Red Blood Cells % (auto) 0.0, Erythrocyte Sedimentation Rate 7, Anion Gap 5L, Glomerular Filtration Rate > 60.0, Blood Urea Nitrogen 8, Creatinine 0.89, Sodium Level 144, Potassium Level 4.1, Chloride Level 113H, Carbon Dioxide Level 26, Calcium Level 7.3L, Aspartate Amino Transf (AST/SGOT) 37, Alanine Aminotransferase (ALT/SGPT) 89H, Alkaline Phosphatase 66, Total Bilirubin 0.3, Total Protein 4.3L, Albumin 2.1L, C-Reactive Protein, Quantitative 0.30, Albumin/Globulin Ratio 0.95L, Thyroid Stimulating Hormone (TSH) 2.470 CBC/BMP Laboratory Tests 11/22/18 06:47 Red Blood Count 3.78 L, Mean Corpuscular Volume 92.1, Mean Corpuscular Hemoglobin 29.4, Mean Corpuscular Hemoglobin Concent 31.9 L, Red Cell Distribution Width 14.8 H, Calcium Level 7.3 L, Aspartate Amino Transf (AST/SGOT) 37, Alanine Aminotransferase (ALT/SGPT) 89 H, Alkaline Phosphatase 66, Total Bilirubin 0.3, Total Protein 4.3 L, Albumin 2.1 L Microbiology Microbiology 11/14/18 Blood Culture - Final, Complete NO GROWTH AFTER 5 DAYS 11/14/18 Blood Culture - Final, Complete NO GROWTH AFTER 5 DAYS 11/14/18 Gastrointestinal Tract Panel (PCR) - Final, Complete 11/16/18 Acid Fast Stain - Final, Resulted 11/16/18 Mycobacterial Culture, Resulted Pending 11/16/18 Fungal Smear, Resulted Pending 11/16/18 Fungal Culture, Resulted Pending 11/16/18 Acid Fast Stain - Final, Resulted 11/16/18 Mycobacterial Culture, Resulted Pending 11/16/18 Fungal Smear, Resulted Pending 11/16/18 Fungal Culture, Resulted Pending 11/16/18 Acid Fast Stain - Final, Resulted 11/16/18 Mycobacterial Culture, Resulted Pending 11/16/18 Fungal Smear, Resulted Pending 11/16/18 Fungal Culture, Resulted Pending 11/16/18 Gram Stain - Final, Complete 11/16/18 Bronchoalveolar Lavage Culture - Final, Complete Staphylococcus Aureus 11/16/18 Gram Stain - Final, Complete 11/16/18 Bronchoalveolar Lavage Culture - Final, Complete Staphylococcus Aureus 11/16/18 Gram Stain - Final, Complete 11/16/18 Bronchial Aspirate Culture - Final, Complete Staphylococcus Aureus 11/16/18 Acid Fast Stain - Final, Resulted 11/16/18 Mycobacterial Culture, Resulted Pending 11/16/18 Fungal Smear, Resulted Pending 11/16/18 Fungal Culture, Resulted Pending 11/16/18 Gram Stain - Final, Complete 11/16/18 Bronchoalveolar Lavage Culture - Final, Complete Staphylococcus Aureus 11/15/18 MRSA Screen - Final, Complete 11/15/18 Gram Stain - Final, Complete 11/15/18 Sputum Culture - Final, Complete Staph.aureus Methicillin Resis Discharge Medications Scheduled Adalimumab (Humira Pen) Unknown Strength Pen.ij.kit, Unknown Dose SC Q2WK, (Reported) PATIENT HAS NOT STARTED THIS MEDICATION - DUE TO BEGIN 11/23/18 Budesonide (Budesonide EC) 3 Mg Capdr...er, 9 MG PO DAILY, (Reported) Cholestyramine (with Sugar) (Questran Packet) 4 Gm Powd.pack, 4 GRAM PO DAILY Lactobacillus Combo No.10 (Probiotic) 1 Each Capsule, 1 CAP PO DAILY, (Reported) Linezolid (Zyvox) 600 Mg Tablet, 600 MG PO BID with food Loperamide HCl (Loperamide) 2 Mg Capsule, 2 CAP PO Q6H for loose stools Mesalamine (Mesalamine) 800 Mg Tablet.dr, 800 MG PO Q6H Multivitamin (Multivitamins) 1 Each Tablet, 1 TAB PO DAILY, (Reported) Prednisone (Deltasone) 20 Mg Tablet, 40 MG PO DAILY Sulfamethoxazole/Trimethoprim (Bactrim Ds Tablet) 1 Each Tablet, 1 TAB PO DAILY for PCP Prophylaxis Sulfasalazine (Sulfasalazine) 500 Mg Tablet, 1,500 MG PO BID, (Reported) Scheduled PRN Acetaminophen (Acetaminophen) 325 Mg Tablet, 650 MG PO Q6H PRN for PAIN, (Reported) Albuterol Sulfate (Proair Hfa) 8.5 Gm Hfa.aer.ad, 2 PUFF INH Q4H PRN for SHORTNESS OF BREATH, (Reported) Diphenoxylate HCl/Atropine (Lomotil 2.5-0.025 mg Tablet) 1 Each Tablet, 1 TAB PO BID PRN for DIARRHEA Allergies Coded Allergies: epinephrine (Verified Adverse Reaction, Intermediate, HIGH DOSE EPI - SEVERE SVT, 09/08/18) latex (Verified Adverse Reaction, Intermediate, Itching, 11/14/18) Pt states sensitivity to latex gloves. Gloves caused itching. codeine (Verified Adverse Reaction, Mild, hallucinations, 09/08/18) CECI JACOB MD Nov 23, 2018 00:41
[2018-11-23 10:09] LABS: ANTINUCLEAR ANTIBODIES DIRECT Negative (Negative)
== END 2018-11-22 13:00 | disposition home or self-care (01) | DRG 391 ==
LOC: EEVIPCON 14:24 → M ED 14:24 → M ED INP 17:08 → EEVIPCON 17:08 → M MS5PR 18:25
PROVIDERS: ADMIT Hospitalist; ATTEND Hospitalist
PROC: 0B988ZX Drainage of Left Upper Lobe Bronchus, Via Natural or Artificial Opening Endoscopic, Diagnostic (ICD-10-PCS; 2018-11-16)
PROC: 0B9B8ZX Drainage of Left Lower Lobe Bronchus, Via Natural or Artificial Opening Endoscopic, Diagnostic (ICD-10-PCS; 2018-11-16)
PROC: 0B958ZX Drainage of Right Middle Lobe Bronchus, Via Natural or Artificial Opening Endoscopic, Diagnostic (ICD-10-PCS; principal; 2018-11-16 14:35)
DX: K52.9 Noninfective gastroenteritis and colitis, unspecified (principal); J18.9 Pneumonia, unspecified organism; E87.2 Acidosis; E87.6 Hypokalemia; R91.8 Other nonspecific abnormal finding of lung field; J45.909 Unspecified asthma, uncomplicated; Z79.899 Other long term (current) drug therapy; Z91.040 Latex allergy status; Z88.8 Allergy status to other drugs, medicaments and biological substances; Z88.5 Allergy status to narcotic agent; L40.50 Arthropathic psoriasis, unspecified

== ENCOUNTER 2018-12-03 14:04 | Inpatient (IN) | payer OTHER ==
[~2018-12-03] VITALS: Ht 190.5 cm; Wt 94.5 kg
[~2018-12-03 14:04] MED LIST changes: +ACET1TAB55 PO; +BACT800T5 PO; +BUDE3CAP PO; +CVS1CAP2 PO; +DELT1TAB PO; +HUMI40KI2 SC; +LOMO2.5T PO; +LOPE1CAP5 PO; +LOPE2TAB11 PO; +MESA800T8 PO; +MULT-40 PO; +QC F0.52 PO; +QUES4POW PO; +SULF500T2 PO; +ZYVO1TAB PO
[2018-12-03] MEDS ORDERED: NS 500 ML IV ONE (14:45)
[2018-12-03 15:41] LABS: HEMATOCRIT 39.2 % (42.0-52.0); HEMOGLOBIN 13.1 g/dl (13.5-17.5); MEAN CORPUSCULAR HEMOGLOBIN 29.8 pg (27.0-33.0); MEAN CORPUSCULAR HGB CONC 33.4 g/dl (32.0-36.5); MEAN CORPUSCULAR VOLUME 89.1 fl (80.0-96.0); PLATELET COUNT, AUTOMATED 121 10^3/uL (150-450); WHITE BLOOD COUNT 5.9 10^3/uL (4.0-10.0)
[2018-12-03 16:04] LABS: LYMPHOCYTES 20 % (16-52); MONOCYTES 1 % (0-8); NEUTROPHILS 69 % (35-75)
[2018-12-03 16:05] LABS: ANISOCYTOSIS 1+; PLATELET ESTIMATE DECREASED (NORMAL); POIKILOCYTOSIS 1+
[2018-12-03 16:06] LABS: ALT/SGPT 40 U/L (12-78); BILIRUBIN,DIRECT 0.2 MG/DL (0.0-0.2); BILIRUBIN,TOTAL 0.5 MG/DL (0.2-1.0); BLOOD UREA NITROGEN 29 MG/DL (7-18); CALCIUM LEVEL 9.2 MG/DL (8.5-10.1); CARBON DIOXIDE LEVEL 19 MEQ/L (21-32); CHLORIDE LEVEL 102 MEQ/L (98-107); CK-MB VALUE MASS 3.3 NG/ML (<3.6); CPK CREATINE PHOSPHOKINASE 24 U/L (39-308); GLOMERULAR FILTRATION RATE > 60.0 (>56); GLUCOSE, FASTING 110 MG/DL (70-100); LIPASE 63 U/L (73-393); MAGNESIUM LEVEL 2.4 MG/DL (1.8-2.4); MB/CK RELATIVE INDEX 13.75 (< OR =4); POTASSIUM SERUM 3.8 MEQ/L (3.5-5.1); SODIUM LEVEL 133 MEQ/L (136-145); TROPONIN I < 0.02 NG/ML (< 0.10)
[2018-12-03] MEDS ORDERED: ISOVUE-370 76% 100ML VIAL (Q9967) As Ordered ONE (16:25)
[2018-12-03] MEDS ORDERED: ACETAMINOPHEN TAB 650MG DOSE (2X325MG) PO ONE (16:45)
--- NOTE | 2018-12-03 16:54 | REP ---
Chest x-ray: Two views. History: Shortness of breath. Comparison chest x-ray: October 16, 2018. Findings: EKG monitoring electrodes overlie the chest. Pleural angles are sharp. Left hemidiaphragm is somewhat elevated, unchanged. Heart is not enlarged. Pulmonary vasculature is not increased. Incidental note is made of shallow glenoid regions of the shoulders consistent with bilateral glenoid dysplasia. This is associated with posterior shoulder instability symptoms. No acute bony abnormality. There is some plate-like atelectasis in the left base above the elevated left hemidiaphragm. Impression: No acute infiltrate. Elevated left hemidiaphragm. Discoid atelectasis left base. Findings suggestive of bilateral glenoid dysplasia. Electronically Signed by Chuck Rao MD 12/03/2018 07:25 P
--- NOTE | 2018-12-03 17:10 | REP ---
CT abdomen and pelvis with IV and without oral contrast: History: Abdomen pain. Comparison CT study November 14, 2018. CT contrast dose: 100 ml of intravenous Isovue 370. CT findings: Digital preliminary research program manager radiograph demonstrates air and fluid distended loops of small and large bowel diffusely throughout the abdomen. On axial CT images, there is discoid atelectasis in the left lower lobe. No pleural effusion is seen. No infiltrate is noted. There is no evidence of ascites. The liver and the spleen are normal in size and homogeneous in texture. No adrenal lesion is seen on either side. No abnormalities noted in the gallbladder or pancreas. Kidneys enhance symmetrically and are morphologically intact. No retroperitoneal mass or adenopathy is observed. The CT images confirm the presence of air and fluid distended loops of intestine throughout the large and small bowel. There are multiple undigested capsules visible in the cecum and ascending colon and one or two are seen in the small bowel. The colon is fluid distended through to the rectum. No obstructive lesion is seen. Prostate, seminal vesicles and urinary bladder are unremarkable. No abdominal wall defect is seen. No bony destructive lesion is appreciated. Impression: Enteritis versus ileus pattern fluid; air distended large and small bowel loops throughout the abdomen. Normal appendix. No evidence of free air or obstruction. Electronically Signed by Chuck Rao MD 12/03/2018 07:26 P
[2018-12-03] MEDS ORDERED: NS 1,000 ML IV SCH (17:45)
[2018-12-03] MEDS ORDERED: MESA800T8 PO (18:06)
[2018-12-03] MEDS ORDERED: EQ A1CAP PO (18:06)
[2018-12-03] MEDS ORDERED: QUES4POW PO (18:06)
[2018-12-03] MEDS ORDERED: ZYVO1TAB PO (18:06)
[2018-12-03] MEDS ORDERED: PRED20TA PO (18:06)
[2018-12-03] MEDS ORDERED: LOMO2.5T PO (18:06)
[2018-12-03] MEDS ORDERED: BACT800T5 PO (18:06)
[2018-12-03] MEDS ORDERED: SULF1TAB30 PO (18:07)
[2018-12-03] MEDS ORDERED: TUMS750C22 PO (18:08)
--- NOTE | 2018-12-03 18:22 | HPEPDOC ---
[facility] Medical History & Physical Date of Admission Dec 03, 2018 Date of Service: Dec 03, 2018 History and Physical CHIEF COMPLAINT: profuse diarrhea HISTORY OF PRESENT ILLNESS: Pt is 48 y/o M with Hx of psoriatic arthritis and bronchial asthma in the past with recent development of profuse diarrhea associated with weight loss since September with recurrent symptoms and hospitalizations. During last admission underwen t colonoscopy and biopsy which revealed diffuse bowel inflammation with crypt abscess. Presentation not fully consistent with Crohn's Disease, GI market intelligence consultant from last admission believes this is likely a nonspecific type of IBD can be sec to Enbrel as per literature report. Pt has been under work up as for management of IBD since September, GI specialist with steroids, sulfasalazine and Pentasa. Due to no response to latter regimen, GI plan to start infliximab. His initial EGD/Colonoscopy with biopsy revealed extensive inflammatory changes and microabscess formation. Positive lactoferrin stool study. Negative all infectious etiologies. Pt also has multiple cavitary lung lesion which were found in previous admission. s/p BAL with negative fungi and PCP as per gram rubio, pending full report. Positive MSSA in BAL, MRSA in sputum. Today he presented with 7-8 times profuse watery diarrhea without blood. Denies any fever. Reports abdomen distension without nausea or vomiting. Denies breathing difficulty , cough or sputum production. 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 REVIEW OF SYSTEMS: 10 point negative except above HOME MEDICATIONS: Please see below. PHYSICAL EXAMINATION: GENERAL APPEARANCE: pt is 48 y/o gentleman appearing pale and fatigued awake alert and oriented in no acute distress HEENT: FILI EOMI neck supple no JVD no LAP mucosa moderately dry CARDIOVASCULAR: S1 S2 LUNGS: no wheezing no rales clear bilat ABDOMEN: abdomen is moderately distended no rebound no guarding mild lower quadrants tenderness MUSCULOSKELETAL: no joint deformity EXTREMITIES: no cyanosis no edema no tenderness NEUROLOGICAL: motor sensory intact PSYCHIATRIC: mood affect appropriate Vital Signs Date Time Temp Pulse Resp B/P (MAP) Pulse Ox O2 Delivery O2 Flow Rate FiO2 12/04/18 06:00 98.0 66 16 113/87 (96) 96 12/03/18 22:00 98.0 69 18 132/78 (96) 97 1819 20:15 97.8 79 18 127/90 (102) 99 1819 19:53 96.8 18/19 19:31 136/88 (104) 18/19 19:31 72 18 136/88 (104) 95 Room Air 12/03/18 19:19 72 95 12/03/18 19:19 72 95 12/03/18 19:19 72 95 1819 19:15 128/84 (99) 1819 19:15 72 20 128/84 (99) 98 Room Air 12/03/18 19:15 128/84 (99) 12/03/18 19:04 72 98 12/03/18 19:04 72 98 12/03/18 19:04 72 98 12/03/18 19:00 123/76 (92) 12/03/18 19:00 123/76 (92) 12/03/18 19:00 69 18 123/76 (92) 98 Room Air 12/03/18 18:49 69 98 19 18:49 69 98 12/03/18 18:49 69 98 12/03/18 18:34 73 99 Room Air 12/03/18 18:30 115/71 (86) 12/03/18 18:19 73 18 98 Room Air 12/03/18 18:15 125/80 (95) 12/03/18 18:04 72 18 98 Room Air 12/03/18 18:00 97.5 12/03/18 18:00 124/82 (96) 19 17:49 78 18 98 Room Air 12/03/18 17:45 136/93 (107) 12/03/18 17:35 75 20 133/88 (103) 98 Room Air 12/03/18 16:32 12/03/18 16:00 72 20 119/78 (92) 98 Room Air 12/03/18 15:30 72 24 117/75 (89) 98 Room Air 12/03/18 15:15 71 20 116/72 (87) 97 Room Air 12/03/18 14:07 97.1 90 16 127/88 (101) 99 Room Air Intake & Output 12/04/18 06:00 Intake Total 1000 ml Output Total 550 ml Balance 450 ml Laboratory Tests 12/03/18 15:26: Lactic Acid Level 2.8*H 12/03/18 15:27: White Blood Count 5.9, Red Blood Count 4.40, Hemoglobin 13.1L, Hematocrit 39.2L, Mean Corpuscular Volume 89.1, Mean Corpuscular Hemoglobin 29.8, Mean Corpuscular Hemoglobin Concent 33.4, Red Cell Distribution Width 14.4, Platelet Count 121L, Nucleated Red Blood Cells % (auto) 0.3H, Neutrophils 69, Band Neutrophils 10, Lymphocytes (Manual) 20, Monocytes (Manual) 1, Platelet Estimate DECREASED, Poikilocytosis 1+, Anisocytosis 1+, Sodium Level 133L, Potassium Level 3.8, Chloride Level 102, Carbon Dioxide Level 19L, Anion Gap 12, Blood Urea Nitrogen 29H, Creatinine 1.20, Glomerular Filtration Rate > 60.0, Fasting Glucose 110H, Calcium Level 9.2, Magnesium Level 2.4, Aspartate Amino Transf (AST/SGOT) 11, Alanine Aminotransferase (ALT/SGPT) 40, Alkaline Phosphatase 77, Total Bilirubin 0.5, Direct Bilirubin 0.2, Total Creatine Kinase 24L, Creatine Kinase MB 3.3, Creatine Kinase MB Relative Index 13.75H, Troponin I < 0.02, Total Protein 6.0L, Albumin 3.0L, Albumin/Globulin Ratio 1.00, Lipase 63L, Thyroid Stimulating Hormone (TSH) 2.570 12/03/18 15:34: POC Glucose (Misc Panel) 112H, POC Sodium (Misc Panel) 131L, POC Potassium (Misc Panel) 3.6, POC Chloride (Misc Panel) 100, POC Total CO2 (Misc Panel) 18.0L, POC Blood Urea Nitrogen (Misc Panel 26, POC Ionized Calcium (Misc Panel) 4.8, POC Creatinine (Misc Panel) 0.9, POC Hematocrit (Misc Panel) 40.0 12/03/18 18:25: Blood Gas Bicarbonate Standard 19.7L, Arterial Blood pH 7.409, Arterial Blood Partial Pressure CO2 28.1L, Arterial Blood Partial Pressure O2 101.8H, Arterial Blood Total CO2 18.2L, Arterial Blood HCO3 17.4L, Arterial Blood Base Excess - 5.9L, Arterial Blood Oxygen Saturation 97.8 12/03/18 19:47: Lactic Acid Followup at 4 Hours 2.7*H Microbiology 12/03/18 Stool Lactoferrin - Final, Complete 12/03/18 Gastrointestinal Tract Panel (PCR) - Final, Complete Current Medications Medications (Trade) Dose Ordered Sig/Elza Route PRN Reason Start Time Stop Time Status Last Admin Dose Admin Cholestyramine Resin (Questran) 4 gm DAILY@0700 PO 12/04/18 07:00 12/04/18 06:00 4 GM Lactated Ringer's 1,000 ml @ 100 mls/hr Q10H IV 12/04/18 01:00 12/04/18 10:15 100 MLS/HR Linezolid (Zyvox) 600 mg BID PO 12/03/18 21:00 12/04/18 08:19 600 MG Prednisone (Deltasone) 40 mg ONCE ONCE PO 12/04/18 12:00 12/04/18 12:01 12/04/18 11:37 40 MG Trimethoprim/ Sulfamethoxazole (Bactrim Ds, Septra Ds 160mg/ 800mg) 1 tab DAILY PO 12/04/18 09:00 12/04/18 08:19 1 TAB LABORATORY DATA: See below. IMAGING: Impression: Enteritis versus ileus pattern fluid; air distended large and small bowel loops throughout the abdomen. Normal appendix. No evidence of free air or obstruction MICROBIOLOGY: Please see below. A/P 1-Dehydration/Volume depletion sec to profuse diarrhea sec to IBD IVF LR monitor electrolytes close clinical monitoring 2-Distended Bowel Loops/Ileus NPO medical management no antidiarrhea medication for now 3-IBD GI Dr Huber and Gabbi on board previous admissions Prednisone 80mg daily Sulfasalazine Pentasa 4-Multiple Cavitary lung lesions s/p BAL MRSA in sputum MSSA in BAL Cont Zyvox as per Dr Auguste recommendation last admission Repeat CT chest 5-Immunocompromised status Bactrim PCP prophylaxis DVT prophylaxis Vital Signs Vital Signs Date Time Temp Pulse Resp B/P (MAP) Pulse Ox O2 Delivery O2 Flow Rate FiO2 12/03/18 18:00 97.5 12/03/18 17:35 75 20 133/88 (103) 98 Room Air Laboratory Data Labs 24H Laboratory Tests 2 12/03/18 15:26: Lactic Acid Level 2.8*H 12/03/18 15:27: Nucleated Red Blood Cells % (auto) 0.3H, Neutrophils 69, Band Neutrophils 10, Lymphocytes (Manual) 20, Monocytes (Manual) 1, Platelet Estimate DECREASED, Poikilocytosis 1+, Anisocytosis 1+, Anion Gap 12, Glomerular Filtration Rate > 60.0, Calcium Level 9.2, Magnesium Level 2.4, Aspartate Amino Transf (AST/SGOT) 11, Alanine Aminotransferase (ALT/SGPT) 40, Alkaline Phosphatase 77, Total Bilirubin 0.5, Direct Bilirubin 0.2, Total Creatine Kinase 24L, Creatine Kinase MB 3.3, Creatine Kinase MB Relative Index 13.75H, Troponin I < 0.02, Total Protein 6.0L, Albumin 3.0L, Albumin/Globulin Ratio 1.00, Lipase 63L 12/03/18 15:34: POC Glucose (Misc Panel) 112H, POC Sodium (Misc Panel) 131L, POC Potassium (Misc Panel) 3.6, POC Chloride (Misc Panel) 100, POC Total CO2 (Misc Panel) 18.0L, POC Blood Urea Nitrogen (Misc Panel 26, POC Ionized Calcium (Misc Panel) 4.8, POC Creatinine (Misc Panel) 0.9, POC Hematocrit (Misc Panel) 40.0 CBC/BMP Laboratory Tests 12/03/18 15:27 Red Blood Count 4.40, Mean Corpuscular Volume 89.1, Mean Corpuscular Hemoglobin 29.8, Mean Corpuscular Hemoglobin Concent 33.4, Red Cell Distribution Width 14.4 Microbiology Microbiology 12/03/18 Blood Culture, Received Pending 12/03/18 Blood Culture, Received Pending Home Medications Scheduled Budesonide (Budesonide EC) 3 Mg Capdr...er, 9 MG PO DAILY Cholestyramine (with Sugar) (Questran Packet) 4 Gm Powd.pack, 4 GM PO DAILY Lactobacillus Combo No.10 (Probiotic) 1 Each Capsule, 1 CAP PO DAILY Linezolid (Zyvox) 600 Mg Tablet, 600 MG PO BID Loperamide HCl (Anti-Diarrheal) 2 Mg Capsule, 4 MG PO Q6H Mesalamine (Mesalamine) 800 Mg Tablet.dr, 800 MG PO Q6H Multivitamin (Multivitamins) 1 Each Tablet, 1 TAB PO DAILY Prednisone (Deltasone) 20 Mg Tablet, 40 MG PO DAILY Prednisone (Prednisone) 20 Mg Tablet, 40 MG PO DAILY Sulfamethoxazole/Trimethoprim (Bactrim Ds Tablet) 1 Each Tablet, 1 TAB PO DAILY PROPHYLAXIS Sulfasalazine (Sulfasalazine) 500 Mg Tablet, 1,500 MG PO BID Scheduled PRN Acetaminophen (Acetaminophen) 325 Mg Tablet, 650 MG PO Q6H PRN for PAIN Albuterol Sulfate (Proair Hfa) 8.5 Gm Hfa.aer.ad, 2 PUFF INH Q4H PRN for SHORTNESS OF BREATH Calcium Carbonate (Tums) 300 Mg Tab.chew, 900 MG PO QID PRN for INDIGESTION Diphenoxylate HCl/Atropine (Lomotil 2.5-0.025 mg Tablet) 1 Each Tablet, 1 TAB PO BID PRN for DIARRHEA Allergies Coded Allergies: epinephrine (Verified Adverse Reaction, Intermediate, HIGH DOSE EPI - SEVERE SVT, 09/08/18) latex (Verified Adverse Reaction, Intermediate, Itching, 11/14/18) Pt states sensitivity to latex gloves. Gloves caused itching. codeine (Verified Adverse Reaction, Mild, hallucinations, 09/08/18) A-FIB/CHADSVASC A-FIB History Current/History of A-Fib/PAF?: No CECI JACOB MD Dec 03, 2018 18:22
[2018-12-03 18:34] LABS: ABG BASE EXCESS -5.9 (-2.0-2.0); ABG HCO3 17.4 MEQ/L (22.0-26.0); ABG O2 SATURATION 97.8 % (95.0-99.0); ABG PARTIAL PRESSURE CO2 28.1 mmHg (35.0-45.0); ABG PARTIAL PRESSURE O2 101.8 mmHg (75.0-100.0); ABG STANDARD HCO3 19.7 MEQ/L (22.0-26.0); ABG TOTAL CO2 18.2 MEQ/L (22.0-29.0); ABG pH (ARTERIAL) 7.409 UNITS (7.350-7.450)
[2018-12-03 20:15] VITALS: BP 127/90
[2018-12-03] MEDS ORDERED: ACETAMINOPHEN 325 MG TAB PO PRN (21:30)
[2018-12-03] MEDS ORDERED: ALBUTEROL 90 MCG/ACT 8GM HFA INHALER INH PRN (21:30)
[2018-12-03 22:00] VITALS: BP 132/78
[2018-12-03] MEDS: LOMOTIL 2.5MG/0.025MG TABLET PO PRN (22:36)
[2018-12-03] MEDS: LINEZOLID 600MG TABLET (ZYVOX) PO SCH (22:36)
[2018-12-04] MEDS: LR 1,000 ML IV SCH ×4 (00:38→23:55)
--- NOTE | 2018-12-04 05:45 | ECGEPIP ---
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
[2018-12-04 06:00] VITALS: BP 113/87
[2018-12-04] MEDS: CHOLESTYRAMINE 4 GM PWD PKT PO SCH (06:00)
[2018-12-04] MEDS: BACTRIM 160MG/800MG DS TAB PO SCH (08:19)
[2018-12-04] MEDS: LINEZOLID 600MG TABLET (ZYVOX) PO SCH ×2 (08:19→20:08)
[2018-12-04] MEDS: LOMOTIL 2.5MG/0.025MG TABLET PO PRN (08:19)
[2018-12-04] MEDS ORDERED: predniSONE 20 MG TAB PO SCH (09:00)
[2018-12-04] MEDS ORDERED: predniSONE 20 MG TAB PO ONE (12:00)
[2018-12-04] MEDS: ENOXAPARIN 40 MG/0.4 ML SYRINGE (J1650) SC SCH (12:45)
[2018-12-04 14:33] VITALS: BP 120/83
[2018-12-04] MEDS: BUDESONIDE EC 3 MG CAP (ENTOCORT EC) PO SCH (15:30)
[2018-12-04] MEDS ORDERED: ISOVUE-370 76% 100ML VIAL (Q9967) As Ordered ONE (16:34)
--- NOTE | 2018-12-04 18:31 | REP ---
CT CHEST WITH IV CONTRAST: TECHNIQUE: Axial contrast enhanced images from the thoracic inlet to the upper abdomen using 100 mL Isovue 370 intravenous contrast material with multiplanar reformations. COMPARISON: 11/14/2018 Previously noted cystic cavitations, specifically the three noted in the left lower lobe and the one in the right middle lobe, have resolved. There is very mild ill-defined patchy parenchymal opacity at these locations representing some mild residual infiltrate. This is seen mostly in the left lower lobe. There is no evidence of mediastinal, hilar or chest wall lymphadenopathy. There is no thoracic aortic aneurysm or dissection. Heart is normal in size. There is no pleural or pericardial effusion. In the visualized portions of the upper abdomen, note is made of a few moderately dilated small bowel loops in the left upper quadrant. These are of uncertain significance. IMPRESSION: Previously noted areas of cystic cavitation in the left lower lobe and right middle lobe have resolved with mild patchy parenchymal opacities at these locations representing mild infiltrate. A few moderately dilated small bowel loops in the left upper quadrant of the abdomen are of uncertain significance and clinical correlation is necessary. Electronically Signed by Brandon De La Vega MD 12/06/2018 09:03 P
[2018-12-04] MEDS: CALCIUM CARBONATE 500 MG CHEW U/D PO PRN (20:09)
[2018-12-04 22:00] VITALS: BP 122/84
--- NOTE | 2018-12-04 23:00 | IPNPDOC ---
Text Note Date of Service The patient was seen on 12/04/18. NOTE Pt was seen and examined at bedside today. He reports his abdomen is less distended today. Denies any episode of nausea or vomiting. Continues to have watery diarrhea with no formed stool. Denies any blood with diarrhea. Denies any fever. PHYSICAL EXAMINATION: GENERAL APPEARANCE: pt is 48 y/o gentleman appearing pale and fatigued awake alert and oriented in no acute distress HEENT: FILI EOMI neck supple no JVD no LAP mucosa moderately dry CARDIOVASCULAR: S1 S2 LUNGS: no wheezing no rales clear bilat ABDOMEN: abdomen is moderately distended no rebound no guarding mild lower quadrants tenderness MUSCULOSKELETAL: no joint deformity EXTREMITIES: no cyanosis no edema no tenderness NEUROLOGICAL: motor sensory intact PSYCHIATRIC: mood affect appropriate Vital Signs Date Time Temp Pulse Resp B/P (MAP) Pulse Ox O2 Delivery O2 Flow Rate FiO2 12/04/18 14:33 97.7 81 16 120/83 (95) 98 12/04/18 06:00 98.0 66 16 113/87 (96) 96 Intake & Output 12/04/18 06:00 Intake Total 1000 ml Output Total 550 ml Balance 450 ml Microbiology 12/04/18 Stool Occult Blood (LEONA) - Final, Complete 12/03/18 Stool Lactoferrin - Final, Complete 12/03/18 Gastrointestinal Tract Panel (PCR) - Final, Complete Current Medications Medications (Trade) Dose Ordered Sig/Elza Route PRN Reason Start Time Stop Time Status Last Admin Dose Admin Budesonide (Entocort Ec) 9 mg DAILY@1500 PO 12/04/18 15:00 12/04/18 15:30 9 MG Calcium Carbonate (Tums) 1,000 mg Q6HP PRN PO Indigestion 12/04/18 20:00 12/04/18 20:09 1,000 MG Cholestyramine Resin (Questran) 4 gm DAILY@0700 PO 12/04/18 07:00 12/04/18 06:00 4 GM Enoxaparin Sodium (Lovenox) 40 mg DAILY SC 12/04/18 09:00 12/04/18 12:45 40 MG Lactated Ringer's 1,000 ml @ 100 mls/hr Q10H IV 12/04/18 01:00 12/04/18 20:08 100 MLS/HR Linezolid (Zyvox) 600 mg BID PO 12/03/18 21:00 12/04/18 20:08 600 MG Trimethoprim/ Sulfamethoxazole (Bactrim Ds, Septra Ds 160mg/ 800mg) 1 tab DAILY PO 12/04/18 09:00 12/04/18 08:19 1 TAB A/P 1-Dehydration/Volume depletion sec to profuse diarrhea sec to IBD IVF LR cont monitor electrolytes close clinical monitoring now improving Strict I/O 2-Distended Bowel Loops/Ileus clinically has improved advance diet to clear liquids medical management no antidiarrhea medication for now 3-IBD GI Dr Huber and Gabbi on board previous admissions, please notify on current admission Prednisone 80mg daily Sulfasalazine Pentasa 4-Multiple Cavitary lung lesions s/p BAL MRSA in sputum MSSA in BAL Cont Zyvox as per Dr Auguste recommendation last admission Repeat CT chest 5-Immunocompromised status Bactrim PCP prophylaxis DVT prophylaxis VS,Fishbone, I+O VS, Fishbone, I+O Vital Signs Date Time Temp Pulse Resp B/P (MAP) Pulse Ox O2 Delivery O2 Flow Rate FiO2 12/04/18 14:33 97.7 81 16 120/83 (95) 98 12/03/18 19:31 Room Air I&O- Last 24 Hours up to 6 AM 12/04/18 06:00 Intake Total 1000 ml Output Total 550 ml Balance 450 ml CECI JACOB MD Dec 04, 2018 23:00
[2018-12-05] MEDS: ACETAMINOPHEN TAB 650MG DOSE (2X325MG) PO PRN ×2 (01:35→20:18)
[2018-12-05 06:00] VITALS: BP 101/65
[2018-12-05] MEDS: CHOLESTYRAMINE 4 GM PWD PKT PO SCH ×3 (06:25→20:18)
[2018-12-05 07:27] LABS: HEMATOCRIT 33.4 % (42.0-52.0); MEAN CORPUSCULAR HEMOGLOBIN 29.5 pg (27.0-33.0); MEAN CORPUSCULAR HGB CONC 32.6 g/dl (32.0-36.5); MEAN CORPUSCULAR VOLUME 90.5 fl (80.0-96.0); RED BLOOD COUNT 3.69 10^6/uL (4.30-6.10); WHITE BLOOD COUNT 4.3 10^3/uL (4.0-10.0)
[2018-12-05 07:59] LABS: BLOOD UREA NITROGEN 30 MG/DL (7-18); CREATININE FOR GFR 0.95 MG/DL (0.70-1.30); GLUCOSE, FASTING 70 MG/DL (70-100); PLATELET COUNT, AUTOMATED 94 10^3/uL (150-450)
[2018-12-05 08:00] LABS: CALCIUM LEVEL 7.7 MG/DL (8.5-10.1); CARBON DIOXIDE LEVEL 17 MEQ/L (21-32); CHLORIDE LEVEL 111 MEQ/L (98-107); GLOMERULAR FILTRATION RATE > 60.0 (>56); HEMOGLOBIN 10.9 g/dl (13.5-17.5); POTASSIUM SERUM 3.5 MEQ/L (3.5-5.1); SODIUM LEVEL 138 MEQ/L (136-145)
[2018-12-05 08:02] LABS: LYMPHOCYTES 18 % (16-52); MONOCYTES 7 % (0-8); NEUTROPHILS 75 % (35-75)
[2018-12-05 08:03] LABS: OVALOCYTES 1+; PLATELET ESTIMATE DECREASED (NORMAL)
[2018-12-05] MEDS ORDERED: predniSONE 20 MG TAB PO SCH (09:00)
[2018-12-05] MEDS: BACTRIM 160MG/800MG DS TAB PO SCH (09:13)
[2018-12-05] MEDS: LINEZOLID 600MG TABLET (ZYVOX) PO SCH ×2 (09:13→20:18)
[2018-12-05] MEDS: ENOXAPARIN 40 MG/0.4 ML SYRINGE (J1650) SC SCH (09:14)
[2018-12-05 14:00] VITALS: BP 124/75
[2018-12-05] MEDS: BUDESONIDE EC 3 MG CAP (ENTOCORT EC) PO SCH (15:21)
[2018-12-05 22:18] VITALS: BP 136/90
--- NOTE | 2018-12-06 03:08 | IPNPDOC ---
Text Note Date of Service The patient was seen on 12/05/18. NOTE Pt was seen on 12/05/18. Pt was seen and examined at bedside today. He continues to have 5-6 bowel movements per day. No formed stools. Pt on clear liquid diet, will advance diet today. Reports improvement of bowel distension, denies any nausea or vomiting. PHYSICAL EXAMINATION: GENERAL APPEARANCE: pt is 48 y/o gentleman appearing pale and fatigued awake alert and oriented in no acute distress HEENT: FILI EOMI neck supple no JVD no LAP mucosa moderately dry CARDIOVASCULAR: S1 S2 LUNGS: no wheezing no rales clear bilat ABDOMEN: abdomen is less distended no rebound no guarding mild lower quadrants tenderness MUSCULOSKELETAL: no joint deformity EXTREMITIES: no cyanosis no edema no tenderness NEUROLOGICAL: motor sensory intact PSYCHIATRIC: mood affect appropriate Vital Signs Date Time Temp Pulse Resp B/P (MAP) Pulse Ox O2 Delivery O2 Flow Rate FiO2 12/05/18 22:18 97.6 78 18 136/90 (105) 98 12/05/18 14:00 97.4 71 18 124/75 (91) 97 12/05/18 06:00 97.7 78 16 101/65 (77) 96 Intake & Output 12/06/18 06:00 Intake Total 2180 ml Output Total 400 ml Balance 1780 ml Laboratory Tests 12/05/18 06:55: White Blood Count 4.3, Red Blood Count 3.69L, Hemoglobin 10.9#L, Hematocrit 33.4L, Mean Corpuscular Volume 90.5, Mean Corpuscular Hemoglobin 29.5, Mean Corpuscular Hemoglobin Concent 32.6, Red Cell Distribution Width 14.5, Platelet Count 94L, Nucleated Red Blood Cells % (auto) 0.5H, Neutrophils 75, Lymphocytes (Manual) 18, Monocytes (Manual) 7, Platelet Estimate DECREASED, Immature Platelet Fraction 5.4, Ovalocytes 1+, Blood Urea Nitrogen 30H, Creatinine 0.95, Sodium Level 138, Potassium Level 3.5, Chloride Level 111H, Carbon Dioxide Level 17L, Calcium Level 7.7#L, Anion Gap 10, Glomerular Filtration Rate > 60.0, Fasting Glucose 70 Microbiology 12/04/18 Stool Occult Blood (LEONA) - Final, Complete 12/03/18 Stool Lactoferrin - Final, Complete 12/03/18 Gastrointestinal Tract Panel (PCR) - Final, Complete Current Medications Medications (Trade) Dose Ordered Sig/Elza Route PRN Reason Start Time Stop Time Status Last Admin Dose Admin Acetaminophen (Tylenol Tab) 650 mg Q6HP PRN PO PAIN 12/04/18 19:59 12/05/18 20:18 650 MG Budesonide (Entocort Ec) 9 mg DAILY@1500 PO 12/04/18 15:00 12/05/18 15:21 9 MG Calcium Carbonate (Tums) 1,000 mg Q6HP PRN PO Indigestion 12/04/18 20:00 12/04/18 20:09 1,000 MG Cholestyramine Resin (Questran) 4 gm 0800,1600,2000 PO 12/05/18 16:00 12/05/18 20:18 4 GM Enoxaparin Sodium (Lovenox) 40 mg DAILY SC 12/04/18 09:00 12/05/18 09:14 40 MG Linezolid (Zyvox) 600 mg BID PO 12/03/18 21:00 12/05/18 20:18 600 MG Prednisone (Deltasone) 80 mg DAILY PO 12/05/18 09:00 12/05/18 09:13 80 MG Trimethoprim/ Sulfamethoxazole (Bactrim Ds, Septra Ds 160mg/ 800mg) 1 tab DAILY PO 12/04/18 09:00 12/05/18 09:[address] CHEST WITH IV CONTRAST: TECHNIQUE: Axial contrast enhanced images from the thoracic inlet to the upper abdomen using 100 mL Isovue 370 intravenous contrast material with multiplanar reformations. COMPARISON: 11/14/2018 Previously noted cystic cavitations, specifically the three noted in the left lower lobe and the one in the right middle lobe, have resolved. There is very mild ill-defined patchy parenchymal opacity at these locations representing some mild residual infiltrate. This is seen mostly in the left lower lobe. There is no evidence of mediastinal, hilar or chest wall lymphadenopathy. There is no thoracic aortic aneurysm or dissection. Heart is normal in size. There is no pleural or pericardial effusion. In the visualized portions of the upper abdomen, note is made of a few moderately dilated small bowel loops in the left upper quadrant. These are of uncertain significance. IMPRESSION: Previously noted areas of cystic cavitation in the left lower lobe and right middle lobe have resolved with mild patchy parenchymal opacities at these locations representing mild infiltrate. A few moderately dilated small bowel loops in the left upper quadrant of the abdomen are of uncertain significance and clinical correlation is necessary. A/P 1-Dehydration/Volume depletion sec to profuse diarrhea sec to IBD IVF LR dc today cont monitor electrolytes close clinical monitoring now improving Strict I/O 2-Distended Bowel Loops/Ileus clinically has improved advance diet to regular medical management Abdomen XR today to evaluate for improvement 3-IBD as per colonoscopy biopsy GI Dr Huber and Gabbi on board previous admissions, please notify about current admission, plan was to start Remicade as outpt Prednisone 80mg daily 4-Multiple Cavitary lung lesions s/p BAL MRSA in sputum MSSA in BAL negative for fungi or PCP Cont Zyvox as per Dr Auguste recommendation last admission Repeat CT chest reveals resolution of cavitary lesions 5-Immunocompromised status Bactrim PCP prophylaxis 6-Thrombocytopenia likely sec to Zyvox, known to cause thrombocytopenia cont monitor DVT prophylaxis VS,Fishbone, I+O VS, Fishbone, I+O Laboratory Tests 12/05/18 06:55 Red Blood Count 3.69 L, Mean Corpuscular Volume 90.5, Mean Corpuscular Hemoglobin 29.5, Mean Corpuscular Hemoglobin Concent 32.6, Red Cell Distribution Width 14.5, Calcium Level 7.7 #L Vital Signs Date Time Temp Pulse Resp B/P (MAP) Pulse Ox O2 Delivery O2 Flow Rate FiO2 12/05/18 22:18 97.6 78 18 136/90 (105) 98 12/03/18 19:31 Room Air I&O- Last 24 Hours up to 6 AM 12/06/18 06:00 Intake Total 2180 ml Output Total 400 ml Balance 1780 ml CECI JACOB MD Dec 06, 2018 03:08
[2018-12-06] MEDS: ACETAMINOPHEN TAB 650MG DOSE (2X325MG) PO PRN ×3 (06:10→18:40)
[2018-12-06 06:26] VITALS: BP 108/70
[2018-12-06 07:30] LABS: HEMATOCRIT 34.1 % (42.0-52.0); MEAN CORPUSCULAR HEMOGLOBIN 28.9 pg (27.0-33.0); MEAN CORPUSCULAR HGB CONC 32.3 g/dl (32.0-36.5); MEAN CORPUSCULAR VOLUME 89.7 fl (80.0-96.0); WHITE BLOOD COUNT 4.4 10^3/uL (4.0-10.0)
[2018-12-06 07:31] LABS: PLATELET COUNT, AUTOMATED 85 10^3/uL (150-450)
[2018-12-06 07:48] LABS: BLOOD UREA NITROGEN 28 MG/DL (7-18); CALCIUM LEVEL 7.5 MG/DL (8.5-10.1); CARBON DIOXIDE LEVEL 17 MEQ/L (21-32); CHLORIDE LEVEL 111 MEQ/L (98-107); CREATININE FOR GFR 0.91 MG/DL (0.70-1.30); GLOMERULAR FILTRATION RATE > 60.0 (>56); GLUCOSE, FASTING 72 MG/DL (70-100); POTASSIUM SERUM 3.5 MEQ/L (3.5-5.1); SODIUM LEVEL 139 MEQ/L (136-145)
--- NOTE | 2018-12-06 08:06 | REP ---
ABDOMINAL SERIES: Supine and erect views of the abdomen demonstrate no evidence of free intraperitoneal air. There is moderate distention of the colon with air and fluid with probable mild to moderate distension of some small bowel loops as well. Once again, the findings suggest a generalized ileus rather than obstruction, given the moderate diffuse colonic distention. Phleboliths are seen in the pelvis. There are mild degenerative changes of the spine and hips. Electronically Signed by Brandon De La Vega MD 12/06/2018 10:33 P
[2018-12-06] MEDS: LINEZOLID 600MG TABLET (ZYVOX) PO SCH ×2 (08:49→20:18)
[2018-12-06] MEDS: BACTRIM 160MG/800MG DS TAB PO SCH (08:49)
[2018-12-06] MEDS: CHOLESTYRAMINE 4 GM PWD PKT PO SCH ×3 (08:50→20:18)
[2018-12-06] MEDS ORDERED: sulfaSALAzine 500 MG TABEC PO SCH (09:00)
[2018-12-06] MEDS: predniSONE 20 MG TAB PO SCH ×2 (09:00→20:17)
[2018-12-06] MEDS: LACTOBACILLUS ACIDOPHILUS CAP (BACID) PO SCH (11:29)
[2018-12-06] MEDS: MULTIVITAMINS/MINERALS THERAP 1 TAB PO SCH (11:29)
--- NOTE | 2018-12-06 11:38 | IPNPDOC ---
Subjective Date Seen The patient was seen on 12/06/18. Subjective Chief Complaint/HPI Patient seen and examined at the bedside. Reports that the frequency of his diarrhea is improved. Also he denies any nausea/vomiting at this time. States his abdominal pain has also improved, and that he is tolerating an advanced by mouth diet. Objective Physical Examination General Exam: Positive: Alert, Cooperative, No Acute Distress ENT Exam: Positive: Atraumatic, Mucous membr. moist/pink Neck Exam: Negative: JVD Chest Exam: Positive: Clear to auscultation, Normal air movement Heart Exam: Positive: Rate Normal, Normal S1, Normal S2 Abdomen Exam: Positive: Soft; Negative: Tenderness Extremity Exam: Negative: Tenderness, Swelling Psych Exam: Positive: Oriented x 3 Assessment /Plan Plan/VTE VTE Prophylaxis Ordered?: Yes Plan Intractable Diarrhea secondary to inflammatory bowel disease This has improved with IV fluid hydration and supportive care Continue prednisone, mesalamine, sulfasalazine, Questran as ordered The patient states that the frequency of his diarrhea has improved. His diet has advanced, and he denies any more nausea/vomiting, and notes improvement of his abdominal pain Continue to monitor the patient, and have him follow-up with GI as an outpatient Non-anion gap metabolic acidosis Likely secondary to diarrhea Given decrease in frequency of diarrhea, and starting a regular diet we will continue to monitor We will consider starting the patient on by mouth sodium bicarbonate if this does not improve History of Multiple cavitary lung lesions Status post bronchial alveolar lavage with pulmonary on 11/[address] Auguste and she has placed the patient on Zyvox for a [address] scan of the chest on 12/04 revealed previously noted areas of cystic cavitation in the left lower lobe and right middle lobe have resolved with mild patchy parenchymal opacities representing mild infiltrate. Follow-up with pulmonary on discharge Thrombocytopenia Likely secondary to IV fluid hydration during hospitalization, and can also be contributed to Zyvox and Bactrim No indication for transfusion at this time, we will continue to monitor Systolic and diastolic congestive heart failure Echocardiogram from 11/15 revealed a left ventricular ejection fraction of 35- 40%, and grade 1 diastolic dysfunction The patient is currently euvolemic Follow-up with cardiology as an outpatient for further monitoring of cardiac function and optimization of medications--- the patient would benefit from being on an ULISES inhibitor/ARB, beta rip, as well as a statin--however given his recurrent episodes of diarrhea and dehydration this remains a challenge. I have advised the patient to follow-up with GI, and once his inflammatory bowel disease is under control we can certainly entertain starting heart failure therapy. DVT prophylaxis SCDs/TEDs (AC held 2/2 thrombocytopenia) VS, I&O, 24H, Fishbone Vital Signs/I&O Vital Signs Date Time Temp Pulse Resp B/P (MAP) Pulse Ox O2 Delivery O2 Flow Rate FiO2 12/06/18 06:26 97.8 68 14 108/70 (83) 97 12/03/18 19:31 Room Air I&O- Last 24 Hours up to 6 AM 12/06/18 05:59 Intake Total 3080 ml Output Total 500 ml Balance 2580 ml Laboratory Data 24H LABS Laboratory Tests 2 12/06/18 06:56: Nucleated Red Blood Cells % (auto) 0.0, Immature Platelet Fraction 5.4, Anion Gap 11, Glomerular Filtration Rate > 60.0, Blood Urea Nitrogen 28H, Creatinine 0.91, Sodium Level 139, Potassium Level 3.5, Chloride Level 111H, Carbon Dioxide Level 17L, Calcium Level 7.5L CBC/BMP Laboratory Tests 12/06/18 06:56 Red Blood Count 3.80 L, Mean Corpuscular Volume 89.7, Mean Corpuscular Hemoglobin 28.9, Mean Corpuscular Hemoglobin Concent 32.3, Red Cell Distribution Width 14.4, Calcium Level 7.5 L Microbiology Microbiology 12/03/18 Blood Culture - Preliminary, Resulted No Growth after 48 hours. All Specime... 12/03/18 Blood Culture - Preliminary, Resulted No Growth after 48 hours. All Specime... 12/04/18 Stool Occult Blood (LEONA) - Final, Complete 12/03/18 Stool Lactoferrin - Final, Complete 12/03/18 Gastrointestinal Tract Panel (PCR) - Final, Complete GIOVANNA RASHEED MD Dec 06, 2018 11:38
[2018-12-06] MEDS: MESALAMINE 400 MG CAPSULE DELAYED RELEASE (DELZICOL) PO SCH ×3 (12:16→23:29)
[2018-12-06 14:00] VITALS: BP 133/87
[2018-12-06] MEDS ORDERED: MORPHINE 4 MG/ML 1ML VIAL/SYRINGE (J2270) IV ONE (15:15)
[2018-12-06] MEDS: BUDESONIDE EC 3 MG CAP (ENTOCORT EC) PO SCH (18:02)
[2018-12-06] MEDS: CALCIUM CARBONATE 500 MG CHEW U/D PO PRN (20:17)
[2018-12-06 22:00] VITALS: BP 133/89
[2018-12-07 05:52] LABS: HEMATOCRIT 35.2 % (42.0-52.0); HEMOGLOBIN 11.8 g/dl (13.5-17.5); MEAN CORPUSCULAR HGB CONC 33.5 g/dl (32.0-36.5); MEAN CORPUSCULAR VOLUME 89.6 fl (80.0-96.0); RED BLOOD COUNT 3.93 10^6/uL (4.30-6.10); WHITE BLOOD COUNT 4.6 10^3/uL (4.0-10.0)
[2018-12-07 05:53] LABS: PLATELET COUNT, AUTOMATED 83 10^3/uL (150-450)
[2018-12-07 06:00] VITALS: BP 115/71
[2018-12-07 06:18] LABS: BLOOD UREA NITROGEN 29 MG/DL (7-18); CALCIUM LEVEL 7.7 MG/DL (8.5-10.1); CARBON DIOXIDE LEVEL 19 MEQ/L (21-32); CHLORIDE LEVEL 110 MEQ/L (98-107); CREATININE FOR GFR 1.02 MG/DL (0.70-1.30); GLOMERULAR FILTRATION RATE > 60.0 (>56); GLUCOSE, FASTING 92 MG/DL (70-100); POTASSIUM SERUM 3.9 MEQ/L (3.5-5.1); SODIUM LEVEL 138 MEQ/L (136-145)
[2018-12-07] MEDS: MESALAMINE 400 MG CAPSULE DELAYED RELEASE (DELZICOL) PO SCH ×3 (06:41→17:50)
[2018-12-07] MEDS: MULTIVITAMINS/MINERALS THERAP 1 TAB PO SCH (08:31)
[2018-12-07] MEDS: CHOLESTYRAMINE 4 GM PWD PKT PO SCH ×3 (08:31→21:24)
[2018-12-07] MEDS: LACTOBACILLUS ACIDOPHILUS CAP (BACID) PO SCH (08:31)
[2018-12-07] MEDS: BACTRIM 160MG/800MG DS TAB PO SCH (08:31)
[2018-12-07] MEDS: predniSONE 20 MG TAB PO SCH ×2 (08:31→21:24)
[2018-12-07] MEDS: LINEZOLID 600MG TABLET (ZYVOX) PO SCH ×2 (08:32→21:24)
[2018-12-07] MEDS: ACETAMINOPHEN TAB 650MG DOSE (2X325MG) PO PRN ×2 (09:50→21:37)
[2018-12-07] MEDS ORDERED: NS 1,000 ML IV ONE (11:15)
[2018-12-07 14:00] VITALS: BP 135/87
[2018-12-07 14:24] VITALS: BP 135/87
[2018-12-07] MEDS: CALCIUM CARBONATE 500 MG CHEW U/D PO PRN (15:41)
[2018-12-07] MEDS: BUDESONIDE EC 3 MG CAP (ENTOCORT EC) PO SCH (16:27)
--- NOTE | 2018-12-07 19:29 | IPNPDOC ---
Subjective Date Seen The patient was seen on 12/07/18 at 749am Subjective Chief Complaint/HPI diarrhea Events since last encounter The patient reports that his diarrhea has been less frequent with his last episode at 2AM Objective Physical Examination General Exam: Positive: Alert, Cooperative, No Acute Distress Eye Exam: Positive: Conjunctiva & lids normal ENT Exam: Positive: Atraumatic, Mucous membr. moist/pink Neck Exam: Negative: JVD Chest Exam: Positive: Clear to auscultation, Normal air movement Heart Exam: Positive: Rate Normal, Normal S1, Normal S2 Abdomen Exam: Positive: Soft; Negative: Tenderness Extremity Exam: Negative: Tenderness, Swelling Psych Exam: Positive: Oriented x 3 Assessment /Plan Assessment is a 48 yr old M w a PMH of IBD, Asthma and Psoriatic Arthritis who is admitted for management of dehydration 2/2 diarrhea. 1.Diarrhea 2/2 IBD -improving Plan: c/w Prednisone, Sulfasalazine and Pentasa, IVF, left a message at 's office will attempt to contact him again tomorrow and let him know about the conversation with 2.Hx of Cavitary Lung lessions -per d/w Dr. Auguste f/u w sputum cx and gram stain if negative can dc antibiotics and start Remicade on an out patient basis 3.Mild Normocytic Anemia -likely anemia of chronic dx -hg trending down Plan: f/u CBC and Iron panel 4.Normal Anion Gap Metabolic Acidosis -improving Plan: f/u BMP 5.Thrombocytopenia -2/2 hemodilution Plan;f/u CBC 6.Chronic Systolic /Diastolic CHF -clinically compensated -per 's note Echo 11/15 showed EF 35% w G1 DD Plan: f/u w Cardiology for repeat Echo and to start HF meds (meds were not started bc patient has frequent flares of IBD w dirrhea and dehydration) DISPO: likely home Fri or Fri pending GI recs Plan/VTE VTE Prophylaxis Ordered?: Yes VS, I&O, 24H, Fishbone Vital Signs/I&O Vital Signs Date Time Temp Pulse Resp B/P (MAP) Pulse Ox O2 Delivery O2 Flow Rate FiO2 12/07/18 14:00 97.8 83 18 135/87 (103) 100 12/03/18 19:31 Room Air I&O- Last 24 Hours up to 6 AM 7/22/19 06:00 Intake Total 1500 ml Output Total 805 ml Balance 695 ml Laboratory Data 24H LABS Laboratory Tests 2 12/07/18 05:38: Nucleated Red Blood Cells % (auto) 0.0, Anion Gap 9, Glomerular Filtration Rate > 60.0, Blood Urea Nitrogen 29H, Creatinine 1.02, Sodium Level 138, Potassium Level 3.9, Chloride Level 110H, Carbon Dioxide Level 19L, Calcium Level 7.7L CBC/BMP Laboratory Tests 12/07/18 05:38 Red Blood Count 3.93 L, Mean Corpuscular Volume 89.6, Mean Corpuscular Hemoglobin 30.0, Mean Corpuscular Hemoglobin Concent 33.5, Red Cell Distribution Width 14.3, Calcium Level 7.7 L Microbiology Microbiology 12/03/18 Blood Culture - Preliminary, Resulted No Growth after 72 hours. All specime... 12/03/18 Blood Culture - Preliminary, Resulted No Growth after 72 hours. All specime... 12/04/18 Stool Occult Blood (LEONA) - Final, Complete 12/03/18 Stool Lactoferrin - Final, Complete 12/03/18 Gastrointestinal Tract Panel (PCR) - Final, Complete 12/07/18 Gram Stain, Received Pending 12/07/18 Sputum Culture, Received Pending 12/07/18 MRSA Screen, Received Pending JAYRO IBANEZ MD Dec 07, 2018 19:29
[2018-12-07 22:39] VITALS: BP 151/87
[2018-12-08] MEDS: MESALAMINE 400 MG CAPSULE DELAYED RELEASE (DELZICOL) PO SCH ×5 (00:06→23:58)
[2018-12-08] MEDS: CALCIUM CARBONATE 500 MG CHEW U/D PO PRN ×3 (01:48→22:12)
[2018-12-08 06:08] LABS: HEMATOCRIT 34.4 % (42.0-52.0); HEMOGLOBIN 11.4 g/dl (13.5-17.5); LYMPH # 0.7 10^3/uL (1.5-4.5); LYMPH % 11.7 % (24.0-44.0); MEAN CORPUSCULAR HEMOGLOBIN 28.8 pg (27.0-33.0); MEAN CORPUSCULAR HGB CONC 33.1 g/dl (32.0-36.5); MEAN CORPUSCULAR VOLUME 86.9 fl (80.0-96.0); MONO # 0.2 10^3/uL (0.0-0.8); MONO % 3.2 % (0.0-5.0); NEUTROPHILS % 84.3 % (36.0-66.0); RED BLOOD COUNT 3.96 10^6/uL (4.30-6.10); WHITE BLOOD COUNT 5.9 10^3/uL (4.0-10.0)
[2018-12-08 06:20] LABS: PLATELET COUNT, AUTOMATED 89 10^3/uL (150-450)
[2018-12-08 06:31] LABS: BLOOD UREA NITROGEN 31 MG/DL (7-18); CALCIUM LEVEL 7.8 MG/DL (8.5-10.1); CARBON DIOXIDE LEVEL 18 MEQ/L (21-32); CHLORIDE LEVEL 109 MEQ/L (98-107); CREATININE FOR GFR 1.06 MG/DL (0.70-1.30); FERRITIN 364 NG/ML (26-388); GLOMERULAR FILTRATION RATE > 60.0 (>56); GLUCOSE, FASTING 98 MG/DL (70-100); IRON (FE) 119 UG/DL (65-175); PERCENT SATURATION 72.6 % (19.7-50.0); POTASSIUM SERUM 3.7 MEQ/L (3.5-5.1); SODIUM LEVEL 137 MEQ/L (136-145); TOTAL IRON BINDING CAPACITY 164 UG/DL (250-450)
[2018-12-08 06:45] VITALS: BP 115/73
[2018-12-08] MEDS: LACTOBACILLUS ACIDOPHILUS CAP (BACID) PO SCH (08:24)
[2018-12-08] MEDS: BACTRIM 160MG/800MG DS TAB PO SCH (08:24)
[2018-12-08] MEDS: predniSONE 20 MG TAB PO SCH ×2 (08:25→20:05)
[2018-12-08] MEDS: CHOLESTYRAMINE 4 GM PWD PKT PO SCH ×3 (08:25→20:05)
[2018-12-08] MEDS: LINEZOLID 600MG TABLET (ZYVOX) PO SCH ×2 (08:25→20:05)
[2018-12-08] MEDS: MULTIVITAMINS/MINERALS THERAP 1 TAB PO SCH (08:25)
[2018-12-08 08:37] VITALS: BP 123/82
[2018-12-08] MEDS: ACETAMINOPHEN TAB 650MG DOSE (2X325MG) PO PRN ×2 (09:32→22:11)
[2018-12-08 15:30] VITALS: BP 121/77
[2018-12-08] MEDS: BUDESONIDE EC 3 MG CAP (ENTOCORT EC) PO SCH (16:08)
--- NOTE | 2018-12-08 19:57 | IPNPDOC ---
Subjective Date Seen The patient was seen on 12/08/18 at 540pm Subjective Chief Complaint/HPI diarrhea Events since last encounter The patient reports that his diarrhea slowed down to 3 episodes over the last 24 hours Objective Physical Examination General Exam: Positive: Alert, Cooperative, No Acute Distress Eye Exam: Positive: Conjunctiva & lids normal ENT Exam: Positive: Atraumatic, Mucous membr. moist/pink Chest Exam: Positive: Clear to auscultation, Normal air movement Heart Exam: Positive: Rate Normal, Normal S1, Normal S2 Abdomen Exam: Positive: Soft; Negative: Tenderness Extremity Exam: Negative: Tenderness, Swelling Psych Exam: Positive: Oriented x 3 Assessment /Plan Assessment is a 48 yr old M w a PMH of IBD, Asthma and Arthritis who is admitted f or management of dehydration 2/2 diarrhea. 1.Diarrhea 2/2 IBD -improving Plan: c/w Prednisone, Sulfasalazine and Pentasa, resume home meds of lomitil and imodium 2.Hx of Cavitary Lung lessions Plan: per d/w Dr. Auguste can f/u w sputum cx and gram stain on an out pt basis and discuss starting new med w GI on an out pt basis as well 3.Multifactorial Anemia -2/2 B12 deficiency and Iron Deficiency Plan: f/u CBC / start B12 and Iron supplements 4.Normal Anion Gap Metabolic Acidosis -improving Plan: f/u BMP 5.Thrombocytopenia -2/2 hemodilution Plan: f/u CBC 6.Chronic Systolic /Diastolic CHF - n/a -the patient denies hx of CHF -eh reports discussing his Echo report with a Senior Java Software Developer who told him that it appears that his EF is low bc he has lost a lot of weight 7.low calcium Plan; f/u albumin for corrected calcium level 8.Debility Plan: PT consult DISPO: likely home Wed Plan/VTE VTE Prophylaxis Ordered?: Yes VS, I&O, 24H, Fishbone Vital Signs/I&O Vital Signs Date Time Temp Pulse Resp B/P (MAP) Pulse Ox O2 Delivery O2 Flow Rate FiO2 12/08/18 15:30 97.6 76 18 121/77 (92) 98 12/03/18 19:31 Room Air I&O- Last 24 Hours up to 6 AM 12/08/18 06:00 Intake Total 2550 ml Output Total 875 ml Balance 1675 ml Laboratory Data 24H LABS Laboratory Tests 2 7/23/19 05:45: Immature Granulocyte % (Auto) 0.8, White Blood Count 5.9, Red Blood Count 3.96L, Hemoglobin 11.4L, Hematocrit 34.4L, Mean Corpuscular Volume 86.9, Mean Corpuscular Hemoglobin 28.8, Mean Corpuscular Hemoglobin Concent 33.1, Red Cell Distribution Width 14.2, Platelet Count 89L, Neutrophils (%) (Auto) 84.3H, Lymphocytes (%) (Auto) 11.7L, Monocytes (%) (Auto) 3.2, Eosinophils (%) (Auto) 0.0, Basophils (%) (Auto) 0.0, Neutrophils # (Auto) 5.0, Lymphocytes # (Auto) 0.7L, Monocytes # (Auto) 0.2, Eosinophils # (Auto) 0.0, Basophils # (Auto) 0.0, Nucleated Red Blood Cells % (auto) 0.3H, Immature Platelet Fraction 5.8, Anion Gap 10, Glomerular Filtration Rate > 60.0, Blood Urea Nitrogen 31H, Creatinine 1.06, Sodium Level 137, Potassium Level 3.7, Chloride Level 109H, Carbon Dioxide Level 18L, Calcium Level 7.8L, Iron Level 119, Total Iron Binding Capacity 164L, Transferrin % Saturation 72.6H, Ferritin 364, Vitamin B12 Level 105L CBC/BMP Laboratory Tests 12/08/18 05:45 Red Blood Count 3.96 L, Mean Corpuscular Volume 86.9, Mean Corpuscular Hemoglobin 28.8, Mean Corpuscular Hemoglobin Concent 33.1, Red Cell Distribution Width 14.2, Neutrophils (%) (Auto) 84.3 H, Lymphocytes (%) (Auto) 11.7 L, Monocytes (%) (Auto) 3.2, Eosinophils (%) (Auto) 0.0, Basophils (%) (Auto) 0.0, Neutrophils # (Auto) 5.0, Lymphocytes # (Auto) 0.7 L, Monocytes # (Auto) 0.2, Eosinophils # (Auto) 0.0, Basophils # (Auto) 0.0, Calcium Level 7.8 L Microbiology Microbiology 12/03/18 Blood Culture - Final, Complete NO GROWTH AFTER 5 DAYS 12/03/18 Blood Culture - Final, Complete NO GROWTH AFTER 5 DAYS 12/04/18 Stool Occult Blood (LEONA) - Final, Complete 12/03/18 Stool Lactoferrin - Final, Complete 12/03/18 Gastrointestinal Tract Panel (PCR) - Final, Complete 12/07/18 Gram Stain - Final, Resulted 12/07/18 Sputum Culture, Resulted Pending 12/07/18 MRSA Screen, Received Pending JAYRO IBANEZ MD Dec 08, 2018 19:57
[2018-12-08] MEDS ORDERED: LOPERAMIDE 2 MG CAP PO PRN (20:00)
[2018-12-08 22:10] VITALS: BP 124/84
[2018-12-08] MEDS: LOMOTIL 2.5MG/0.025MG TABLET PO SCH (22:11)
[2018-12-09] MEDS: ACETAMINOPHEN TAB 650MG DOSE (2X325MG) PO PRN ×2 (04:23→15:30)
[2018-12-09] MEDS: MESALAMINE 400 MG CAPSULE DELAYED RELEASE (DELZICOL) PO SCH ×3 (05:35→17:20)
[2018-12-09 05:51] VITALS: BP 116/76
[2018-12-09 06:21] LABS: HEMATOCRIT 35.6 % (42.0-52.0); HEMOGLOBIN 12.2 g/dl (13.5-17.5); LYMPH # 0.7 10^3/uL (1.5-4.5); LYMPH % 10.9 % (24.0-44.0); MEAN CORPUSCULAR HGB CONC 34.3 g/dl (32.0-36.5); MEAN CORPUSCULAR VOLUME 87.7 fl (80.0-96.0); MONO # 0.3 10^3/uL (0.0-0.8); MONO % 4.4 % (0.0-5.0); NEUTROPHILS # 5.1 10^3/uL (1.8-7.7); NEUTROPHILS % 83.7 % (36.0-66.0); RED BLOOD COUNT 4.06 10^6/uL (4.30-6.10); WHITE BLOOD COUNT 6.1 10^3/uL (4.0-10.0)
[2018-12-09 06:22] LABS: PLATELET COUNT, AUTOMATED 85 10^3/uL (150-450)
[2018-12-09 06:43] LABS: BLOOD UREA NITROGEN 33 MG/DL (7-18); CARBON DIOXIDE LEVEL 19 MEQ/L (21-32); CHLORIDE LEVEL 108 MEQ/L (98-107); CREATININE FOR GFR 1.18 MG/DL (0.70-1.30); GLOMERULAR FILTRATION RATE > 60.0 (>56); GLUCOSE, FASTING 101 MG/DL (70-100); POTASSIUM SERUM 3.6 MEQ/L (3.5-5.1); SODIUM LEVEL 136 MEQ/L (136-145)
[2018-12-09] MEDS: CYANOCOBALAMIN 500 MCG TAB PO SCH (09:45)
[2018-12-09] MEDS: BACTRIM 160MG/800MG DS TAB PO SCH (09:45)
[2018-12-09] MEDS: LOMOTIL 2.5MG/0.025MG TABLET PO SCH ×4 (09:45→20:20)
[2018-12-09] MEDS: LACTOBACILLUS ACIDOPHILUS CAP (BACID) PO SCH (09:45)
[2018-12-09] MEDS: CHOLESTYRAMINE 4 GM PWD PKT PO SCH ×3 (09:45→20:21)
[2018-12-09] MEDS: predniSONE 20 MG TAB PO SCH (09:45)
[2018-12-09] MEDS: MULTIVITAMINS/MINERALS THERAP 1 TAB PO SCH (09:46)
[2018-12-09] MEDS: LINEZOLID 600MG TABLET (ZYVOX) PO SCH (09:46)
[2018-12-09] MEDS: FERROUS GLUCONATE 324 MG TAB PO SCH (09:46)
[2018-12-09] MEDS: CALCIUM CARBONATE 500 MG CHEW U/D PO PRN ×2 (12:09→18:33)
[2018-12-09] MEDS ORDERED: NS 500 ML IV ONE (13:00)
[2018-12-09 14:00] VITALS: BP 141/96
--- NOTE | 2018-12-09 14:02 | IPNPDOC ---
Subjective Date Seen The patient was seen on 12/09/18. at 12:22pm Subjective Chief Complaint/HPI diarrhea Events since last encounter the patient reports that he has had over 6 episodes of diarrhea since 6 ye sterday evening and is feeling a lot weaker Objective Physical Examination General Exam: Positive: Alert, Cooperative, No Acute Distress Eye Exam: Positive: Conjunctiva & lids normal ENT Exam: Positive: Atraumatic, Mucous membr. moist/pink Chest Exam: Positive: Clear to auscultation, Normal air movement Heart Exam: Positive: Rate Normal, Normal S1, Normal S2 Abdomen Exam: Positive: Soft Extremity Exam: Positive: Other (BLE edema) Skin Exam: Positive: Other skin issue (generalized palor) Psych Exam: Positive: Oriented x 3 Assessment /Plan Assessment is a 48 yr old M w a PMH of IBD, Asthma and Arthritis who is admitted for management of dehydration 2/2 diarrhea. 1.Diarrhea 2/2 IBD -slowly improving Plan: per d/w (who has been consulted) will switch from Prednisone to solumedrol/ c/w Sulfasalazine and Pentasa,lomitil and imodium / 500ml bolus 2.Hx of Cavitary Lung lessions -sputum cx is growing Citerobacter and Klebsiella Plan: consulted ID at [facility] and Pulm for assistance w abx coverage 3.Multifactorial Anemia -2/2 B12 deficiency and Iron Deficiency Plan: f/u CBC / c/w B12 and Iron supplements 4.Normal Anion Gap Metabolic Acidosis -improving Plan: f/u BMP 5.Thrombocytopenia -cause TBD possibly 2/2 abx Plan: f/u CBC 6.Chronic Systolic /Diastolic CHF - n/a -the patient denies hx of CHF -the reports discussing his Echo report with a Waxing Machine Operator Helper who told him that it appears that his EF is low bc he has lost a lot of weight but it is 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 7.low calcium Plan; f/u albumin for corrected calcium level 8.Debility Plan: PT consult DISPO: pending clinical course Plan/VTE VTE Prophylaxis Ordered?: Yes VS, I&O, 24H, Fishbone Vital Signs/I&O Vital Signs Date Time Temp Pulse Resp B/P (MAP) Pulse Ox O2 Delivery O2 Flow Rate FiO2 12/09/18 05:51 97.5 66 16 116/76 (89) 97 12/03/18 19:31 Room Air I&O- Last 24 Hours up to 6 AM 12/09/18 06:00 Intake Total 2340 ml Output Total 900 ml Balance 1440 ml Laboratory Data 24H LABS Laboratory Tests 2 12/09/18 05:43: Immature Granulocyte % (Auto) 1.0, White Blood Count 6.1, Red Blood Count 4.06L, Hemoglobin 12.2L, Hematocrit 35.6L, Mean Corpuscular Volume 87.7, Mean Corpuscular Hemoglobin 30.0, Mean Corpuscular Hemoglobin Concent 34.3, Red Cell Distribution Width 14.0, Platelet Count 85L, Neutrophils (%) (Auto) 83.7H, Lymphocytes (%) (Auto) 10.9L, Monocytes (%) (Auto) 4.4, Eosinophils (%) (Auto) 0.0, Basophils (%) (Auto) 0.0, Neutrophils # (Auto) 5.1, Lymphocytes # (Auto) 0.7L, Monocytes # (Auto) 0.3, Eosinophils # (Auto) 0.0, Basophils # (Auto) 0.0, Nucleated Red Blood Cells % (auto) 0.3H, Anion Gap 9, Glomerular Filtration Rate > 60.0, Blood Urea Nitrogen 33H, Creatinine 1.18, Sodium Level 136, Potassium Level 3.6, Chloride Level 108H, Carbon Dioxide Level 19L, Calcium Level 8.0L CBC/BMP Laboratory Tests 12/09/18 05:43 Red Blood Count 4.06 L, Mean Corpuscular Volume 87.7, Mean Corpuscular Hemoglobin 30.0, Mean Corpuscular Hemoglobin Concent 34.3, Red Cell Distribution Width 14.0, Neutrophils (%) (Auto) 83.7 H, Lymphocytes (%) (Auto) 10.9 L, Monocytes (%) (Auto) 4.4, Eosinophils (%) (Auto) 0.0, Basophils (%) (Auto) 0.0, Neutrophils # (Auto) 5.1, Lymphocytes # (Auto) 0.7 L, Monocytes # (Auto) 0.3, Eosinophils # (Auto) 0.0, Basophils # (Auto) 0.0, Calcium Level 8.0 L Microbiology Microbiology 12/03/18 Blood Culture - Final, Complete NO GROWTH AFTER 5 DAYS 12/03/18 Blood Culture - Final, Complete NO GROWTH AFTER 5 DAYS 12/04/18 Stool Occult Blood (LEONA) - Final, Complete 12/03/18 Stool Lactoferrin - Final, Complete 12/03/18 Gastrointestinal Tract Panel (PCR) - Final, Complete 12/07/18 Gram Stain - Final, Resulted 12/07/18 Sputum Culture - Preliminary, Resulted Citrobacter Freundii Klebsiella Pneumoniae 12/07/18 MRSA Screen - Final, Complete JAYRO IBANEZ MD Dec 09, 2018 14:02
--- NOTE | 2018-12-09 14:31 | CR ---
DATE OF CONSULTATION: 12/09/2018 HISTORY OF PRESENT ILLNESS: The patient is a 48-year-old male with a past medical history of psoriatic arthritis, asthma, history of a recent diagnosis of inflammatory bowel disease, possibly Crohn's disease although not entirely consistent, who has been on immunosuppressive medications with steroids, sulfasalazine and Pentasa. The patient's last hospitalization was also complicated by Staphylococcus aureus pneumonia with multiple cavitary lung lesions. The patient was started on linezolid for treatment and discharged with linezolid, GI and pulmonary followup. The patient was also started on Bactrim for PCP prophylaxis given his high dose steroid use with other immunosuppressive medications. As an outpatient, he was discontinued on the sulfasalazine and he was started on budesonide, in addition to the prednisone with an attempt to taper the prednisone. The plan was to start Entyvio once he had completed his antibiotic course of linezolid and with CT improvement of the previously noted cavitary lesions. The patient had presented to the GI clinic with complaints of persistent watery diarrhea. There was no blood in the stool. No fevers or chills. He reported worsening weakness and fatigue, as well as new onset nausea and bloating. He was therefore sent to the emergency department for imaging and for IV steroids, as well as IV fluids for dehydration. The patient had a CT of the abdomen done on his admission, which showed enteritis versus ileus with air, distended large and small bowel loops throughout the abdomen. He was started on IV Solu-Medrol and continued with the his other medications for his inflammatory bowel disease. During this admission, he also had a repeat CT of the chest done as well and a repeat sputum culture. The patient continues to report persistent watery diarrhea, about six episodes a day. It is nonbloody and denies any fevers or chills. He has some abdominal cramping but no further nausea or bloating. He denies any coughing. No shortness of breath. No chest pain or wheezing. He does report some worsening reflux symptoms since these medications have been started. He has also noted some slight lower extremity edema recently. His left leg is usually chronically larger than the right. PHYSICAL EXAMINATION: Temperature 97.5, pulse 66, respiration 16, blood pressure 116/76, oxygen saturation 97% on room air. General: The patient is sitting in the chair in no acute distress. He is able to speak in complete sentences. HEENT is normocephalic, atraumatic. Mucous membranes are moist. Pupils are reactive. Neck is supple. Trachea is midline. There is no palpable cervical adenopathy. Cardiovascular is regular rate and rhythm. Normal S1, S2. No murmurs appreciated. Pulmonary: Some decreased breath sounds bilaterally with scant crackles at the bases but no wheezing or rhonchi. Abdomen is soft, mild tenderness. Lower extremities: There is trace lower extremity edema. The left leg is slightly larger than the right. LABORATORY DATA: WBC 6.1, hemoglobin 12.2, platelets 85. Chemistry: Sodium 136, potassium 3.6, chloride 108, bicarbonate 19, BUN 33, creatinine 1.18, glucose is 101, calcium is 8.0. On the microbiology, blood cultures on admission were no growth. Stool lactoferrin was positive. Fecal occult blood was negative. GI PCR panel was negative. The methicillin resistant Staphylococcus aureus (MRSA) screen was negative. Sputum culture was positive for a few organisms of Citrobacter freundii and Klebsiella pneumoniae. IMAGING STUDIES: CT chest 12/04/2018 showed the previously noted cavitary lesions in the left lower lobe and right middle lobe have resolved with very mild patchy parenchymal air representing a mild infiltrate. There is no significant mediastinal or hilar adenopathy. There is no pleural effusion. There are a few mildly dilated small bowel loops and noted in the left upper quadrant of the abdomen on the CT of the chest. ASSESSMENT AND PLAN: Mr. Gunter is a 48-year-old male with a history of psoriatic arthritis, asthma and recent diagnosis of inflammatory bowel disease thought to be possibly secondary to Enbrel or an atypical Crohn's presentation. The patient has been on high dose steroids, as well as other immunosuppressive medications for his inflammatory bowel disease. His last hospitalization was complicated by the development of Staphylococcus aureus pneumonia with cavitary lesions noted on imaging. He was treated with linezolid as an outpatient. The patient presented to the hospital with complaints of persistent watery diarrhea and worsening fatigue, as well as new nausea and bloating. On admission, he was noted to have enteritis versus ileus on his CT abdomen and pelvis. He was started on Solu-Medrol and continued on his other immunosuppressive medications for his inflammatory bowel disease. He also had a repeat CT chest done which showed resolution in his the previously noted cavitary lesions in his lungs. The patient also is symptomatically improved. He does not have any cough, no shortness of breath. No wheezing. He has not had any fevers or chills. His repeat sputum culture did not grow any Staphylococcus aureus but did show few organisms of Klebsiella pneumoniae and Citrobacter freundii. Suspect that the patient's sputum culture indicates some GI contamination with some possible aspiration from normal bacterial colonization in the GI tract. He does report some increasing heartburn and reflux since starting all of these medications and he did reports that he feels his sputum culture may have been partially some oral or gastric contamination with contents. The patient also has not had any fevers, no leukocytosis, and his CT on admission did not show any findings concerning for pneumonia. Therefore, as the patient has completed at this time more than 3 weeks of linezolid and his repeat imaging shows resolution of the previously noted cavitary lesions and his sputum culture does not show any methicillin resistant Staphylococcus aureus (MRSA), would discontinue linezolid at this time. Would also monitor the patient off of antibiotics and would not start him on antibiotics for the positive sputum culture, I suspect this is likely some gastric contamination from some aspiration. We will get a chest x-ray to make sure that he does not have any new focal opacities but likely can monitor him off of antibiotics. If he has any new symptoms, such as fevers increasing leukocytosis cough then would reevaluate at that time for possible pneumonia. The patient will need aspiration precautions with head of bed elevation as he is at risk for development of pneumonia given his immunocompromised state. The patient does require PCP prophylaxis as he is on high dose steroids, as well as other immunosuppressive medications. He has some thrombocytopenia, in which there was some concern that it could be secondary to Bactrim; however , linezolid is commonly associated with thrombocytopenia and would followup his platelet counts off of the linezolid. If he does have continued thrombocytopenia and there is concern that it is due to his Bactrim, can be changed to atovaquone for PCP prophylaxis. Continue with albuterol as needed. I discussed with the patient that some of his weakness may also be steroid induced myopathy as he has been on high dose steroids for some time. He has physical therapy ordered, which he will be proceeding with. Deep vein thrombosis (DVT) prophylaxis. FULL CODE. The patient can followup with pulmonary on an outpatient basis. MTDD
[2018-12-09] MEDS: LOPERAMIDE 2 MG CAP PO SCH ×2 (15:30→20:20)
[2018-12-09] MEDS: BUDESONIDE EC 3 MG CAP (ENTOCORT EC) PO SCH (15:30)
[2018-12-09] MEDS ORDERED: metroNIDAZOLE 750 MG in APPROPRIATE DILUENT 1 EA IV SCH (16:30)
[2018-12-09] MEDS ORDERED: CIPROFLOXACIN 200 MG in APPROPRIATE DILUENT 1 EA IV SCH (16:30)
[2018-12-09] MEDS: CIPROFLOXACIN 400 MG in APPROPRIATE DILUENT 1 EA IV SCH (17:20)
--- NOTE | 2018-12-09 17:43 | CR ---
DATE OF CONSULTATION: 12/09/2018 STATUS OF THE PATIENT: Inpatient. CONSULTATION REPORT FOR: Hospitalist service. REASON FOR CONSULTATION: Crohn's disease. HISTORY OF PRESENT ILLNESS: Mr. Garcia is a 48-year-old gentleman known well to me with a new diagnosis of Crohn's disease probably related to Enbrel, diagnosed on 10/09/2018. He has been relatively steroid resistant and has had repeat admissions to the hospital for dehydration. He has failed outpatient prednisone 40 mg twice a day, Entocort 9 mg daily, Imodium and Questran. The patient presented to my office on 12/03/2018 with dehydration, fatigue, and weakness. He was admitted to the hospital for IV hydration and advancement of steroids to IV Solu-Medrol. The patient has had persistent weakness, fatigue. Although his stools have reduced in quantity, he continues to have abdominal bloating and abdominal gas and up to four loose stools per day. We are at this time awaiting clearance of his pneumonia/pulmonary infection before embarking on a trial on biologic therapy for his Crohn's disease. PAST MEDICAL HISTORY: 1. He was previously diagnosed with psoriatic arthritis (was on Enbrel til 09/05/2018). (This diagnosis has been withdrawn as of October 2018 after further testing by Rheumatology). 2. Crohn's disease newly diagnosed September 2018 on upper and lower scopes with random biopsies showing bishop enterocolitis. 3. Asthma. 4. Pneumonia 09/2018 PAST SURGICAL HISTORY: Esophagogastroduodenoscopy (EGD) and colonoscopy on 09/16/2018 and repeat procedures on 10/09/2018. MEDICATIONS: That he is on currently are: - methylprednisolone 40 mg IV every 12 hours - Cipro 400 mg IV every 12 hours - Flagyl 500 mg IV every eight hours - cyanocobalamin 1000 mcg by mouth daily - ferrous gluconate 324 mg by mouth daily - Imodium 2 mg by mouth twice a day - Lomotil two by mouth daily - mesalamine 800 mg by mouth every six hours - Questran 4 grams by mouth three times a day - Entocort EC 9 mg by mouth daily - Bactrim one by mouth daily FAMILY HISTORY: Positive for colon cancer in the paternal grandfather, non-Hodgkin's lymphoma in father. SOCIAL HISTORY: Negative for tobacco. Occasional alcohol, 1-2 drinks per month. Occasional caffeine. REVIEW OF SYSTEMS: Positive for weight loss. Negative fevers and chills. It is positive for fatigue and malaise. PULMONARY: Negative for hemoptysis or pleuritic-type chest pain. Positive for recent pneumonia. CARDIAC: Negative for orthopnea or paroxysmal nocturnal dyspnea (PND). GASTROINTESTINAL (GI): As per history of present illness (HPI). GENITOURINARY (): Negative for hematuria or dysuria. MUSCULOSKELETAL: Positive for weakness and fatigue. PHYSICAL EXAMINATION: Weight is 96.5 kg, temperature 97.7, pulse is 80, respiratory rate is 16, blood pressure 141/96, pulse oximetry is 98% on room air. GENERAL: He is awake, alert and oriented times three, chronically ill- appearing. HEAD, EYES, EARS, NOSE AND THROAT: Grossly without abnormality. There is no oral thrush. NECK: Supple. No lymphadenopathy or thyromegaly. CHEST: Clear bilaterally. No rhonchi or crackles are appreciated. HEART: Regular rate and rhythm, S1, S2. No murmurs or gallops. ABDOMEN: Soft, positive bowel sounds. No masses felt. Mild gaseous distension with positive tympani, mild tenderness on deep palpation only. No rebound tenderness. I do not appreciate hepatosplenomegaly. EXTREMITIES: 1+ pedal edema. LABORATORY DATA: Hemoglobin 12.2, WBC 6.1, platelet count is 85. BUN 33, creatinine 1.18, iron is 119, TIBC 164, iron saturation is 72.6. IMAGING STUDIES: CT abdomen and pelvis dated 12/03/2018: Impression: Enteritis versus ileus pattern fluid, air distended large and small bowel loops throughout the abdomen, normal appendix. No evidence of free air or obstruction. CT chest dated 12/04/2018: Impression: Previously noted areas of cystic cavitation in the left lower lobe and right middle lobe have resolved with mild patchy parenchymal opacities at these locations representing mild infiltrate. DIAGNOSES: 1. Noninfective enterocolitis/Crohns disease small and large intestine. 2. Cavitating pneumonia, resolving. 3. Diarrhea 4. Weight loss/malnutrition 5. Abdominal pain DISCUSSION: This patient's new onset inflammatory bowel disease is possibly related to, etanercept/Enbrel as the causative agent. The timing of onset (2 weeks after stopping Enbrel for preparation for screening colonoscopy) is somewhat curious, however biopsies and symptoms and extensive other labs and stools are consistent with diffuse Inflammatory bowel disease involving both the small and large bowel. He is steroid relatively resistant despite high dose prednisone, as his symptoms have worsened. The plan is to advance his treatment to a biologic. We are awaiting clearance of his pneumonia before starting him on Entyvio. RECOMMENDATIONS: 1. Solu-Medrol 40 mg IV every 12 hours. 2. Continue Entocort EC 9 mg daily. 3. Continue Lomotil increase to 2 tabs po bid or tid. 4. Continue Questran increase to 4 gm QID. 5. Aggressive IV fluids. 6. He has significant malnutrition, depending on progress in next 24-48 hrs, I would recommend starting him on TPN. 7. Low fiber/elemental diet. 8. I will discuss with pulmonary again regarding potential timing of starting him on Entyvio. MTDD
--- NOTE | 2018-12-09 18:12 | REP ---
CHEST, SINGLE VIEW: Single view of the chest is performed and compared to prior study of 12/03/2018. There is mild linear discoid atelectasis in the left base with mild elevation of the left hemidiaphragm. No consolidating infiltrate is seen bilaterally. The heart is normal in size and the mediastinal silhouette is unremarkable and unchanged. Electronically Signed by Brandon De La Vega MD 12/10/2018 12:39 P
[2018-12-09] MEDS: metroNIDAZOLE 500 MG in APPROPRIATE DILUENT 1 EA IV SCH (18:34)
[2018-12-09 20:00] VITALS: BP 129/90
[2018-12-09] MEDS: methylPREDNISolone INJ 40 MG/1 ML VIAL (J2920) IV SCH (20:21)
[2018-12-09] MEDS ORDERED: CALCIUM CARBONATE 500 MG CHEW U/D PO ONE (21:45)
[2018-12-09 22:00] VITALS: BP 129/90
[2018-12-10] MEDS: MESALAMINE 400 MG CAPSULE DELAYED RELEASE (DELZICOL) PO SCH ×4 (00:07→17:52)
[2018-12-10] MEDS: metroNIDAZOLE 500 MG in APPROPRIATE DILUENT 1 EA IV SCH ×2 (02:46→10:53)
[2018-12-10] MEDS: CIPROFLOXACIN 400 MG in APPROPRIATE DILUENT 1 EA IV SCH (05:48)
[2018-12-10 06:00] VITALS: BP 127/90
[2018-12-10 06:06] LABS: BASO % 0.1 % (0.0-1.0); HEMATOCRIT 35.7 % (42.0-52.0); LYMPH # 0.7 10^3/uL (1.5-4.5); MEAN CORPUSCULAR HEMOGLOBIN 29.6 pg (27.0-33.0); MEAN CORPUSCULAR HGB CONC 33.6 g/dl (32.0-36.5); MEAN CORPUSCULAR VOLUME 87.9 fl (80.0-96.0); MONO # 0.3 10^3/uL (0.0-0.8); MONO % 3.9 % (0.0-5.0); NEUTROPHILS # 5.7 10^3/uL (1.8-7.7); NEUTROPHILS % 85.4 % (36.0-66.0); RED BLOOD COUNT 4.06 10^6/uL (4.30-6.10); WHITE BLOOD COUNT 6.7 10^3/uL (4.0-10.0)
[2018-12-10 06:09] LABS: PLATELET COUNT, AUTOMATED 80 10^3/uL (150-450)
[2018-12-10 06:28] LABS: ALBUMIN 2.7 GM/DL (3.2-5.2); BLOOD UREA NITROGEN 30 MG/DL (7-18); CALCIUM LEVEL 7.7 MG/DL (8.5-10.1); CARBON DIOXIDE LEVEL 19 MEQ/L (21-32); CHLORIDE LEVEL 106 MEQ/L (98-107); CREATININE FOR GFR 1.18 MG/DL (0.70-1.30); GLOMERULAR FILTRATION RATE > 60.0 (>56); GLUCOSE, FASTING 106 MG/DL (70-100); POTASSIUM SERUM 3.5 MEQ/L (3.5-5.1); SODIUM LEVEL 135 MEQ/L (136-145)
[2018-12-10] MEDS ORDERED: ENOXAPARIN 40 MG/0.4 ML SYRINGE (J1650) SC SCH (09:00)
[2018-12-10] MEDS: LACTOBACILLUS ACIDOPHILUS CAP (BACID) PO SCH (10:15)
[2018-12-10] MEDS: CHOLESTYRAMINE 4 GM PWD PKT PO SCH ×3 (10:15→20:13)
[2018-12-10] MEDS: LOPERAMIDE 2 MG CAP PO SCH ×2 (10:15→21:18)
[2018-12-10] MEDS: CYANOCOBALAMIN 500 MCG TAB PO SCH (10:16)
[2018-12-10] MEDS: LOMOTIL 2.5MG/0.025MG TABLET PO SCH ×4 (10:16→21:18)
[2018-12-10] MEDS: FERROUS GLUCONATE 324 MG TAB PO SCH (10:16)
[2018-12-10] MEDS: methylPREDNISolone INJ 40 MG/1 ML VIAL (J2920) IV SCH ×2 (10:17→21:00)
--- NOTE | 2018-12-10 10:24 | IPN ---
DATE: 12/10/2018 The patient was seen and examined this morning during rounds. The patient continues to report episodes of watery diarrhea, as well as some occasional cramping, but feels his bloating has improved. He has not had any fevers or chills. He has no nausea. He has not noticed any blood in his stool. He denies any shortness of breath. No coughing. No chest pain or wheezing. PHYSICAL EXAMINATION: Temperature 97.8, pulse 78, respirations 18, blood pressure 127/90, oxygen saturation 98% on room air. Input 2.6 liters, output 275 mL. GENERAL: The patient is sitting in the bed in no acute distress. He is able to speak in complete sentences. HEENT: Normocephalic, atraumatic. Mucous membranes are moist. Pupils are reactive. Neck is supple. Trachea is midline. There is no palpable cervical adenopathy. CARDIOVASCULAR: Regular rate and rhythm. Normal S1, S2. No murmurs appreciated. PULMONARY: Some decreased breath sounds with a few crackles, more at the left base, but no wheezing or rhonchi. ABDOMEN: Soft. Nondistended. No tenderness. EXTREMITIES: Lower extremities with some trace lower extremity edema bilaterally, and the left leg is usually slightly more edematous than the right. LABORATORIES: WBC 6.7, hemoglobin 12.0, platelets 80. Chemistry: Sodium is 135, potassium 3.5, chloride 106, bicarbonate 19, BUN 30, creatinine 1.18, glucose is 106. IMAGING STUDIES: Chest x-ray showed no focal opacities or infiltrates. There is chronic mild left hemidiaphragm elevation and some linear atelectasis in the left base. ASSESSMENT AND PLAN: Mr. Garcia is a 48-year-old male with a history of arthritis, previously thought to be psoriatic, asthma, and recent diagnosis of inflammatory bowel disease, thought to be secondary to his Enbrel or possibly more atypical Crohn's presentation. His last hospital course was complicated by development of Staphylococcus aureus pneumonia with cavitary lesions noted on imaging. He had a bronchoscopy, which grew methicillin sensitive Staphylococcus aureus (MSSA) and his sputum had grown methicillin resistant Staphylococcus aureus (MRSA) and so he was started on treatment for MRSA pneumonia. He was discharged with linezolid, which he completed more than 3 weeks of antibiotics as an outpatient before presenting to the hospital again with worsening diarrhea, fatigue, nausea and bloating. On this admission, his CT of the abdomen and pelvis showed enteritis versus ileus. He was started on steroids and continued on other immunosuppressive medications for his inflammatory bowel disease. He did have a repeat CT of the chest done, which showed resolution of the previously noted cavitary lesions in the lungs. The patient has also symptomatically improved and he does not have any further cough. No mucus. No shortness of breath or wheezing. The patient has also not had any leukocytosis. No fevers or chills. His repeat sputum culture did not show any evidence of Staphylococcus aureus, but did show a few organisms of Klebsiella pneumoniae and Citrobacter freundii. The patient has had increasing heartburn and reflux since starting his medications for his inflammatory bowel disease. He did report that his sputum culture may have been partially contaminated from oral or gastric contents. Suspect that his sputum culture results indicate some GI contamination with possible aspiration from bacterial colonization in the GI tract. As his chest x-ray does not show any evidence of pneumonia and symptomatically he has no coughing, wheezing, shortness of breath, chest pain, fevers, chills, or leukocytosis, the patient did not clinically have pneumonia at this time. The patient's linezolid was discontinued and would hold off on antibiotics for the sputum culture, although he is at risk for aspiration pneumonia, especially given the bacterial colonization, as well as his immunosuppressed state. His sensitivities also showed intermediate sensitivity to levaquin and suspect he will likely not be sensitive to ciprofloxacin and it would just generate resistant organisms. The flagyl was started for abdominal infection given his active IBD flare, would continue as per GI and primary team. The patient would need close aspiration precautions with head of bed elevation, and we discussed other techniques to help prevent aspiration, including making sure that he is eating and drinking fully upright and avoid laying down immediately after eating or drinking. Can also consider chlorhexidine mouthwash and mouth care for prevention of aspiration. He does have atelectasis on imaging, which can increase his risk for pneumonia. The patient will be given incentive spirometer, which he will use for his atelectasis. The patient will continue to require PCP prophylaxis, as he is on high dose steroids and other immunosuppressive medications. His thrombocytopenia is thought to be secondary to the linezolid, however, if he continues to have thrombocytopenia that does not recover after discontinuation of the linezolid and there is concern that Bactrim may be contributing, can change his PCP prophylaxis to atovaquone. Continue albuterol as needed. Deep vein thrombosis (DVT) prophylaxis. FULL CODE. Physical therapy (PT) and occupational therapy (OT) for possible steroid-induced myopathy. The patient can followup with pulmonary on an outpatient basis after his discharge. Please do not hesitate to call if any further questions or concerns. MTDD
[2018-12-10] MEDS: BACTRIM 160MG/800MG DS TAB PO SCH (10:52)
[2018-12-10] MEDS: MULTIVITAMINS/MINERALS THERAP 1 TAB PO SCH (10:53)
[2018-12-10] MEDS: CALCIUM CARBONATE 500 MG CHEW U/D PO PRN ×2 (10:54→21:18)
[2018-12-10 14:00] VITALS: BP 140/87
[2018-12-10] MEDS: BUDESONIDE EC 3 MG CAP (ENTOCORT EC) PO SCH (15:20)
--- NOTE | 2018-12-10 19:19 | IPNPDOC ---
Subjective Date Seen The patient was seen on 12/10/18. Time of service 1:30 PM Subjective Chief Complaint/HPI diarrhea dehydration Events since last encounter The patient reports feeling a little bit better today. His diarrhea has slowed down but not completely resolved. Objective Physical Examination General Exam: Positive: Alert, Cooperative, No Acute Distress Eye Exam: Positive: Conjunctiva & lids normal ENT Exam: Positive: Atraumatic, Mucous membr. moist/pink Chest Exam: Positive: Clear to auscultation, Normal air movement Heart Exam: Positive: Rate Normal, Normal S1, Normal S2 Abdomen Exam: Positive: Soft Extremity Exam: Positive: Other (BLE edema) Skin Exam: Positive: Other skin issue (generalized palor) Psych Exam: Positive: Oriented x 3 Assessment /Plan Assessment is a 48 yr old M w a PMH of IBD, Asthma and Arthritis who is admitted for management of dehydration 2/2 diarrhea. 1.Diarrhea 2/2 IBD -slowly improving -1 and metabolic acidosis was a sequelae of diarrhea Plan: per c/w solumedrol/ c/w Sulfasalazine and Pentasa,lomitil and imodium / will follow up with GI to discuss switching back to PO prednisone when ready to go home and starting when the patient will start Entyvio 2.Hx of Cavitary Lung lessions -sputum cx is growing Citerobacter and Klebsiella -Based on CT findings. These have resolved Plan: Dr. Auguste (research test engine operator) recommendations are noted and appreciated. We will discontinue all antibiotics except for Bactrim, order aspiration precautions, incentive spirometer, and ask nursing staff to keep head of bed elevated. We will also order chlorhexidine mouthwash 3.Multifactorial Anemia -2/2 B12 deficiency and Iron Deficiency Plan: f/u CBC / continues B12 and iron supplements 4.Thrombocytopenia -cause TBD possibly 2/2 abx Plan: f/u CBC discussion with Dr. Auguste if platelets continue to trend down . 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 7.[id number] -Corrected calcium 8.7 Plan; no need for intervention 8.Debility Plan: PT consult DVT prophylaxis with Lovenox DISPO: pending clinical course Plan/VTE VTE Prophylaxis Ordered?: Yes VS, I&O, 24H, Fishbone Vital Signs/I&O Vital Signs Date Time Temp Pulse Resp B/P (MAP) Pulse Ox O2 Delivery O2 Flow Rate FiO2 12/10/18 14:00 97.5 73 18 140/87 (104) 98 I&O- Last 24 Hours up to 6 AM 12/10/18 05:59 Intake Total 2840 ml Output Total 575 ml Balance 2265 ml Laboratory Data 24H LABS Laboratory Tests 2 12/10/18 05:24: Immature Granulocyte % (Auto) 0.6, White Blood Count 6.7, Red Blood Count 4.06L, Hemoglobin 12.0L, Hematocrit 35.7L, Mean Corpuscular Volume 87.9, Mean Corpuscular Hemoglobin 29.6, Mean Corpuscular Hemoglobin Concent 33.6, Red Cell Distribution Width 14.0, Platelet Count 80L, Neutrophils (%) (Auto) 85.4H, Lymphocytes (%) (Auto) 10.0L, Monocytes (%) (Auto) 3.9, Eosinophils (%) (Auto) 0.0, Basophils (%) (Auto) 0.1, Neutrophils # (Auto) 5.7, Lymphocytes # (Auto) 0.7L, Monocytes # (Auto) 0.3, Eosinophils # (Auto) 0.0, Basophils # (Auto) 0.0, Nucleated Red Blood Cells % (auto) 0.0, Immature Platelet Fraction 8.6, Anion Gap 10, Glomerular Filtration Rate > 60.0, Blood Urea Nitrogen 30H, Creatinine 1.18, Sodium Level 135L, Potassium Level 3.5, Chloride Level 106, Carbon Dioxide Level 19L, Calcium Level 7.7L, Albumin 2.7L CBC/BMP Laboratory Tests 12/10/18 05:24 Red Blood Count 4.06 L, Mean Corpuscular Volume 87.9, Mean Corpuscular Hemoglobin 29.6, Mean Corpuscular Hemoglobin Concent 33.6, Red Cell Distribution Width 14.0, Neutrophils (%) (Auto) 85.4 H, Lymphocytes (%) (Auto) 10.0 L, Monocytes (%) (Auto) 3.9, Eosinophils (%) (Auto) 0.0, Basophils (%) (Auto) 0.1, Neutrophils # (Auto) 5.7, Lymphocytes # (Auto) 0.7 L, Monocytes # (Auto) 0.3, Eosinophils # (Auto) 0.0, Basophils # (Auto) 0.0, Calcium Level 7.7 L Microbiology Microbiology 12/03/18 Blood Culture - Final, Complete NO GROWTH AFTER 5 DAYS 12/03/18 Blood Culture - Final, Complete NO GROWTH AFTER 5 DAYS 12/04/18 Stool Occult Blood (LEONA) - Final, Complete 12/03/18 Stool Lactoferrin - Final, Complete 12/03/18 Gastrointestinal Tract Panel (PCR) - Final, Complete 12/07/18 Gram Stain - Final, Resulted 12/07/18 Sputum Culture - Preliminary, Resulted Citrobacter Freundii Klebsiella Pneumoniae 12/07/18 MRSA Screen - Final, Complete JAYRO IBANEZ MD Dec 10, 2018 19:19
[2018-12-10] MEDS: CHLORHEXIDINE GLUCONATE 0.12 % 15ML UDC (PERIDEX ORAL RINSE) MT SCH (21:18)
[2018-12-10 22:00] VITALS: BP 141/91
[2018-12-11] MEDS: MESALAMINE 400 MG CAPSULE DELAYED RELEASE (DELZICOL) PO SCH ×4 (00:42→18:27)
[2018-12-11 06:00] VITALS: BP 127/82
[2018-12-11 06:36] LABS: BASO % 0.1 % (0.0-1.0); EOS % 0.1 % (0.0-3.0); HEMATOCRIT 35.3 % (42.0-52.0); HEMOGLOBIN 11.8 g/dl (13.5-17.5); LYMPH # 1.4 10^3/uL (1.5-4.5); LYMPH % 19.3 % (24.0-44.0); MEAN CORPUSCULAR HEMOGLOBIN 28.9 pg (27.0-33.0); MEAN CORPUSCULAR HGB CONC 33.4 g/dl (32.0-36.5); MEAN CORPUSCULAR VOLUME 86.3 fl (80.0-96.0); MONO # 0.6 10^3/uL (0.0-0.8); MONO % 7.8 % (0.0-5.0); NEUTROPHILS # 5.3 10^3/uL (1.8-7.7); RED BLOOD COUNT 4.09 10^6/uL (4.30-6.10); WHITE BLOOD COUNT 7.4 10^3/uL (4.0-10.0)
[2018-12-11 06:38] LABS: PLATELET COUNT, AUTOMATED 78 10^3/uL (150-450)
[2018-12-11 07:05] LABS: BLOOD UREA NITROGEN 25 MG/DL (7-18); CALCIUM LEVEL 7.6 MG/DL (8.5-10.1); CARBON DIOXIDE LEVEL 17 MEQ/L (21-32); CHLORIDE LEVEL 106 MEQ/L (98-107); CREATININE FOR GFR 1.14 MG/DL (0.70-1.30); GLOMERULAR FILTRATION RATE > 60.0 (>56); GLUCOSE, FASTING 92 MG/DL (70-100); SODIUM LEVEL 134 MEQ/L (136-145)
[2018-12-11] MEDS ORDERED: BACTRIM 160MG/800MG DS TAB PO SCH (09:00)
[2018-12-11] MEDS ORDERED: LIDOCAINE 1% MDV 20ML VIAL As Ordered ONE (09:42)
[2018-12-11] MEDS ORDERED: KCL 10MEQ/100ML SWI (KRUN) 10 MEQ in APPROPRIATE DILUENT 1 EA IV ONE (10:00)
[2018-12-11] MEDS: CALCIUM CARBONATE 500 MG CHEW U/D PO PRN ×2 (10:07→17:42)
[2018-12-11] MEDS: methylPREDNISolone INJ 40 MG/1 ML VIAL (J2920) IV SCH ×2 (10:52→22:07)
[2018-12-11] MEDS: LACTOBACILLUS ACIDOPHILUS CAP (BACID) PO SCH (10:52)
[2018-12-11] MEDS: CHLORHEXIDINE GLUCONATE 0.12 % 15ML UDC (PERIDEX ORAL RINSE) MT SCH ×2 (10:52→22:07)
[2018-12-11] MEDS: LOMOTIL 2.5MG/0.025MG TABLET PO SCH ×4 (10:52→22:07)
[2018-12-11] MEDS: CHOLESTYRAMINE 4 GM PWD PKT PO SCH ×3 (10:52→20:24)
[2018-12-11] MEDS: FERROUS GLUCONATE 324 MG TAB PO SCH (10:53)
[2018-12-11] MEDS: CYANOCOBALAMIN 500 MCG TAB PO SCH (10:53)
[2018-12-11] MEDS: MULTIVITAMINS/MINERALS THERAP 1 TAB PO SCH (10:53)
[2018-12-11] MEDS: LOPERAMIDE 2 MG CAP PO SCH ×2 (10:53→22:06)
[2018-12-11] MEDS: POTASSIUM CHL PWD 20 MEQ PACKET PO ONE ×2 (10:54→12:38)
[2018-12-11] MEDS ORDERED: POTASSIUM CHLORIDE 10 MEQ SR TABLET PO ONE (12:00)
--- NOTE | 2018-12-11 13:10 | IPN ---
DATE: 12/11/2018 Mr. Garcia is doing slightly better today. He has had a few small loose bowel movements but had a soft stool yesterday. His abdominal pain is somewhat improved, less gassy. He has no further nausea or vomiting. His abdominal cramping has diminished as well. He continues to feel weak, tired. He is not short of breath. He is not coughing. He has no chest pain or wheezing. PHYSICAL EXAMINATION: Temperature 97.6, pulse 76, respiratory rate 16, blood pressure 127/82, pulse oximetry 94% on room air. General: He is awake. He is alert. He is nontoxic in appearance. He appears fatigued. He is relatively comfortably in bed. Head, eyes, ears, nose and throat are grossly without abnormality. No oral thrush. Neck: Negative for adenopathy. Chest is clear bilaterally to my auscultation. No rhonchi or crackles that I can hear. Heart is regular rate and rhythm, S1, S2. No murmurs or gallops. Abdomen is soft. Positive bowel sounds. Mildly tender on deep palpation. No rebound tenderness. No masses. No fluid. No hepatosplenomegaly. Extremities: 1+ pedal edema. Pulses are intact. LAB WORK: Sodium 134, potassium 3.0, BUN 25, creatinine 1.14, albumin 2.7. B12 105. WBC 7.4, hemoglobin 11.8, hematocrit 35.3, MCV 86.3, platelet count is 78. IMPRESSION: 1. Noninfective enterocolitis diffuse consistent with Crohn disease. 2. Malnutrition. 3. Dehydration. 4. B12 deficit. 5. Thrombocytopenia. 6. Pneumonia. DISCUSSION: The patient has steroid resistance Crohn disease, however has had some improvement on IV solumedrol. He has poor po intake and remains malnourished. RECOMMENDATIONS: 1. I will start him on total parenteral nutrition (TPN) today. 2. I discussed with pulmonary regarding his sputum samples, which is thought to be contaminant. His pneumonia is thought to have resolved on CT scan. Antibiotics have been discontinued, and the patient has been doing quite well from that standpoint. As per discussion with pulmonary, I think at this time it is safe to proceed with a tibial infusion as planned. 3. Continue B12 supplementation. 4. Continue IV hydration. 5. Continue IV Solu-Medrol 40 mg every 12 hours, plus Entocort 9 mg daily by mouth. 6. Monitor thrombocytopenia, which may be related to sulfa, ie, Bactrim. If his platelets continued to be low, consideration should be given to discontinuing Bactrim as a possibility. MTDD
[2018-12-11] MEDS ORDERED: VEDOLIZUMAB 300 MG in NS 250 ML IV ONE (14:00)
[2018-12-11] MEDS ORDERED: NS 1,000 ML IV ONE (15:00)
[2018-12-11] MEDS ORDERED: AMINO AC/ELECTROLYTE/DEX/CALC 1,000 ML IV SCH (15:00)
[2018-12-11] MEDS: SODIUM CHLORIDE 0.9% INJ 10 ML SYR IV PRN (15:13)
[2018-12-11] MEDS: BUDESONIDE EC 3 MG CAP (ENTOCORT EC) PO SCH (15:45)
--- NOTE | 2018-12-11 17:22 | IPNPDOC ---
Subjective Date Seen The patient was seen on 12/11/18. Time of service 2:10 PM Subjective Chief Complaint/HPI Diarrhea Events since last encounter The patient reports the diarrhea has slowed down to 4 episodes today. He attributes this to missing 1 dose of Solu-Medrol last night prior to getting his midline placed. Invanz is being started today. Per Dr. Huber he will be started on TPN Objective Physical Examination General Exam: Positive: Alert, Cooperative, No Acute Distress Eye Exam: Positive: Conjunctiva & lids normal ENT Exam: Positive: Atraumatic, Mucous membr. moist/pink Chest Exam: Positive: Clear to auscultation, Normal air movement Heart Exam: Positive: Rate Normal, Normal S1, Normal S2 Abdomen Exam: Positive: Soft Extremity Exam: Positive: Other (BLE edema) Skin Exam: Positive: Other skin issue (generalized palor) Psych Exam: Positive: Oriented x 3 Assessment /Plan Assessment is a 48 yr old M w a PMH of IBD, Asthma and Arthritis who is admitted for management of dehydration 2/2 diarrhea. 1.Diarrhea 2/2 Atypical IBD -slowly improving -metabolic acidosis was a sequelae of diarrhea Plan: per c/w solumedrol, Entyvi,Sulfasalazine, Pentasa,lomitil, imodium and IVF / will follow up with GI to discuss switching back to PO prednisone when ready to go home 2.Multifactorial Anemia -2/2 B12 deficiency and Iron Deficiency Plan: f/u CBC / continues B12 and iron supplements 3.Hx of Cavitary Lung lessions -resolved -sputum cx is growing Citerobacter and Klebsiella but per this may be a contaminang -Based on CT findings. These have resolved Plan: Per discussion with Dr. Auguste will switch from Bactrim to Atovaquone for PCP px / continue with order aspiration precautions, incentive spirometer, and ask nursing staff to keep head of bed elevated. We will also order chlorhexidine mouthwash 3.Thrombocytopenia -possibly 2/2 ADR to abx Plan: switch from Bactrim to Pentasa 4 PCP prophylaxis, follow-up CBC 5. 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 Plan/VTE VTE Prophylaxis Ordered?: Yes VS, I&O, 24H, Fishbone Vital Signs/I&O Vital Signs Date Time Temp Pulse Resp B/P (MAP) Pulse Ox O2 Delivery O2 Flow Rate FiO2 12/11/18 14:00 98.0 80 16 97 12/11/18 06:00 127/82 (97) I&O- Last 24 Hours up to 6 AM 12/11/18 05:59 Intake Total 2080 ml Output Total 650 ml Balance 1430 ml Laboratory Data 24H LABS Laboratory Tests 2 12/11/18 06:13: Immature Granulocyte % (Auto) 0.7, White Blood Count 7.4, Red Blood Count 4.09L, Hemoglobin 11.8L, Hematocrit 35.3L, Mean Corpuscular Volume 86.3, Mean Corpuscular Hemoglobin 28.9, Mean Corpuscular Hemoglobin Concent 33.4, Red Cell Distribution Width 13.9, Platelet Count 78L, Neutrophils (%) (Auto) 72.0H, Lymphocytes (%) (Auto) 19.3L, Monocytes (%) (Auto) 7.8H, Eosinophils (%) (Auto) 0.1, Basophils (%) (Auto) 0.1, Neutrophils # (Auto) 5.3, Lymphocytes # (Auto) 1.4L, Monocytes # (Auto) 0.6, Eosinophils # (Auto) 0.0, Basophils # (Auto) 0.0, Nucleated Red Blood Cells % (auto) 0.0, Immature Platelet Fraction 8.6, Anion Gap 11, Glomerular Filtration Rate > 60.0, Blood Urea Nitrogen 25H, Creatinine 1.14, Sodium Level 134L, Potassium Level 3.0L, Chloride Level 106, Carbon Dioxide Level 17L, Calcium Level 7.6L CBC/BMP Laboratory Tests 12/11/18 06:13 Red Blood Count 4.09 L, Mean Corpuscular Volume 86.3, Mean Corpuscular Hemoglobin 28.9, Mean Corpuscular Hemoglobin Concent 33.4, Red Cell Distribution Width 13.9, Neutrophils (%) (Auto) 72.0 H, Lymphocytes (%) (Auto) 19.3 L, Monocytes (%) (Auto) 7.8 H, Eosinophils (%) (Auto) 0.1, Basophils (%) (Auto) 0.1, Neutrophils # (Auto) 5.3, Lymphocytes # (Auto) 1.4 L, Monocytes # (Auto) 0.6, Eosinophils # (Auto) 0.0, Basophils # (Auto) 0.0, Calcium Level 7.6 L Microbiology Microbiology 12/03/18 Blood Culture - Final, Complete NO GROWTH AFTER 5 DAYS 12/03/18 Blood Culture - Final, Complete NO GROWTH AFTER 5 DAYS 12/04/18 Stool Occult Blood (LEONA) - Final, Complete 12/03/18 Stool Lactoferrin - Final, Complete 12/03/18 Gastrointestinal Tract Panel (PCR) - Final, Complete 12/07/18 Gram Stain - Final, Complete 12/07/18 Sputum Culture - Final, Complete Citrobacter Freundii Klebsiella Pneumoniae 12/07/18 MRSA Screen - Final, Complete JAYRO IBANEZ MD Dec 11, 2018 17:22
[2018-12-11] MEDS ORDERED: FAT EMULSION IV 20% 500 ML IV SCH (18:00)
[2018-12-11] MEDS: HumaLOG INSULIN (NovoLOG) PER UNIT SC SCH (18:00)
[2018-12-11] MEDS: AMINO AC/ELECTROLYTE/DEX/CALC 1,000 ML IV SCH (18:29)
[2018-12-11] MEDS: SODIUM CHLORIDE 0.9% INJ 10 ML SYR IV SCH (18:30)
[2018-12-11] MEDS: ACETAMINOPHEN TAB 650MG DOSE (2X325MG) PO PRN (20:25)
[2018-12-11 22:22] VITALS: BP 118/84
[2018-12-12] MEDS: MESALAMINE 400 MG CAPSULE DELAYED RELEASE (DELZICOL) PO SCH ×4 (00:11→17:49)
[2018-12-12] MEDS: ACETAMINOPHEN TAB 650MG DOSE (2X325MG) PO PRN ×3 (02:15→17:50)
[2018-12-12] MEDS: SODIUM CHLORIDE 0.9% INJ 10 ML SYR IV SCH ×2 (05:20→17:51)
[2018-12-12 06:20] LABS: BASO % 0.2 % (0.0-1.0); HEMATOCRIT 35.7 % (42.0-52.0); HEMOGLOBIN 12.1 g/dl (13.5-17.5); LYMPH # 0.7 10^3/uL (1.5-4.5); LYMPH % 7.4 % (24.0-44.0); MEAN CORPUSCULAR HEMOGLOBIN 29.8 pg (27.0-33.0); MEAN CORPUSCULAR HGB CONC 33.9 g/dl (32.0-36.5); MEAN CORPUSCULAR VOLUME 87.9 fl (80.0-96.0); MONO # 0.3 10^3/uL (0.0-0.8); NEUTROPHILS % 87.6 % (36.0-66.0); RED BLOOD COUNT 4.06 10^6/uL (4.30-6.10); WHITE BLOOD COUNT 9.1 10^3/uL (4.0-10.0)
[2018-12-12 06:22] LABS: PLATELET COUNT, AUTOMATED 87 10^3/uL (150-450)
[2018-12-12] MEDS: HumaLOG INSULIN (NovoLOG) PER UNIT SC SCH ×4 (06:46→17:49)
[2018-12-12 06:50] LABS: BLOOD UREA NITROGEN 17 MG/DL (7-18); CALCIUM LEVEL 7.8 MG/DL (8.5-10.1); CARBON DIOXIDE LEVEL 19 MEQ/L (21-32); CHLORIDE LEVEL 109 MEQ/L (98-107); CREATININE FOR GFR 1.03 MG/DL (0.70-1.30); GLOMERULAR FILTRATION RATE > 60.0 (>56); GLUCOSE, FASTING 135 MG/DL (70-100); SODIUM LEVEL 137 MEQ/L (136-145)
[2018-12-12 06:54] VITALS: BP 118/73
[2018-12-12] MEDS: LOMOTIL 2.5MG/0.025MG TABLET PO SCH ×4 (07:58→20:27)
[2018-12-12] MEDS: AMINO AC/ELECTROLYTE/DEX/CALC 1,000 ML IV SCH ×2 (07:58→20:27)
[2018-12-12] MEDS: ATOVAQUONE SUSP 750MG/5ML 210 ML BTL PO SCH (07:59)
[2018-12-12] MEDS: CHOLESTYRAMINE 4 GM PWD PKT PO SCH ×3 (07:59→19:51)
[2018-12-12 08:37] VITALS: BP 117/75
[2018-12-12] MEDS: methylPREDNISolone INJ 40 MG/1 ML VIAL (J2920) IV SCH ×2 (09:13→20:27)
[2018-12-12] MEDS: CHLORHEXIDINE GLUCONATE 0.12 % 15ML UDC (PERIDEX ORAL RINSE) MT SCH ×2 (09:13→20:27)
[2018-12-12] MEDS: LOPERAMIDE 2 MG CAP PO SCH ×2 (09:14→20:27)
[2018-12-12] MEDS: MULTIVITAMINS/MINERALS THERAP 1 TAB PO SCH (09:14)
[2018-12-12] MEDS: FERROUS GLUCONATE 324 MG TAB PO SCH (09:14)
[2018-12-12] MEDS: CYANOCOBALAMIN 500 MCG TAB PO SCH (09:14)
[2018-12-12] MEDS: LACTOBACILLUS ACIDOPHILUS CAP (BACID) PO SCH (09:14)
--- NOTE | 2018-12-12 12:46 | IPNPDOC ---
Subjective Date Seen The patient was seen on 12/12/18. Time of service 8:40 AM Subjective Chief Complaint/HPI The patient reports that his diarrhea is about the same as it was yesterday. He denies feeling dehydrated, and reports he's in a better mood today. Objective Physical Examination General Exam: Positive: Alert, Cooperative, No Acute Distress Eye Exam: Positive: Conjunctiva & lids normal ENT Exam: Positive: Atraumatic, Mucous membr. moist/pink, Other ENT (temporal wasting) Chest Exam: Positive: Clear to auscultation, Normal air movement Heart Exam: Positive: Rate Normal, Normal S1, Normal S2 Abdomen Exam: Positive: Soft, Tenderness (no abdominal tenderness) Extremity Exam: Positive: Other (BLE edema, gait normal) Skin Exam: Positive: Other skin issue (generalized palor) Neuro Exam: Positive: Normal Speech, Cranial Nerves 3-12 NL Psych Exam: Positive: Oriented x 3 Assessment /Plan Assessment is a 48 yr old M w a PMH of IBD, Asthma and Arthritis who is admitted for management of dehydration 2/2 diarrhea. 1.Diarrhea 2/2 Atypical IBD -Stable -metabolic acidosis was a sequelae of diarrhea Plan: Appreciate 's recommendations c/w solumedrol, Entyvio, mesalamine, budesonide,lomitil, imodium, probiotics and IVF PRN / will follow up with GI to discuss his new home regimen/ will consult Highway Technician to discuss good sources of protein for vegans and ask SW to help us obtain info about IBD support groups 2.Multifactorial Anemia -2/2 B12 deficiency and Iron Deficiency Plan: f/u CBC / continues B12 and iron supplements 3.Hx of Cavitary Lung lessions -resolved -sputum cx is growing Citerobacter and Klebsiella but per this may be a contaminang -Based on CT findings. These have resolved Plan: Per discussion with Dr. Auguste we have switched from Bactrim to Atovaquone for PCP px / continue with order aspiration precautions, incentive spirometer, and ask nursing staff to keep head of bed elevated. We will also order chlorhexidine mouthwash 3.Thrombocytopenia -possibly 2/2 ADR to abx Plan: Follow-up CBC 5. 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 Plan/VTE VTE Prophylaxis Ordered?: Yes VS, I&O, 24H, Fishbone Vital Signs/I&O Vital Signs Date Time Temp Pulse Resp B/P (MAP) Pulse Ox O2 Delivery O2 Flow Rate FiO2 12/12/18 08:37 97.6 68 16 117/75 (89) 96 I&O- Last 24 Hours up to 6 AM 12/12/18 06:00 Intake Total 5430 ml Output Total 1200 ml Balance 4230 ml Laboratory Data 24H LABS Laboratory Tests 2 12/11/18 18:23: Bedside Glucose (Misc Panel) 106H 12/12/18 00:07: Bedside Glucose (Misc Panel) 115H 12/12/18 05:46: Immature Granulocyte % (Auto) 1.8, White Blood Count 9.1, Red Blood Count 4.06L, Hemoglobin 12.1L, Hematocrit 35.7L, Mean Corpuscular Volume 87.9, Mean Corpuscular Hemoglobin 29.8, Mean Corpuscular Hemoglobin Concent 33.9, Red Cell Distribution Width 13.9, Platelet Count 87L, Neutrophils (%) (Auto) 87.6H, Lymphocytes (%) (Auto) 7.4L, Monocytes (%) (Auto) 3.0, Eosinophils (%) (Auto) 0.0, Basophils (%) (Auto) 0.2, Neutrophils # (Auto) 8.0H, Lymphocytes # (Auto) 0.7L, Monocytes # (Auto) 0.3, Eosinophils # (Auto) 0.0, Basophils # (Auto) 0.0, Nucleated Red Blood Cells % (auto) 0.0, Anion Gap 9, Glomerular Filtration Rate > 60.0, Blood Urea Nitrogen 17, Creatinine 1.03, Sodium Level 137, Potassium Level 4.0#, Chloride Level 109H, Carbon Dioxide Level 19L, Calcium Level 7.8L 12/12/18 06:42: Bedside Glucose (Misc Panel) 143H 12/12/18 11:35: Bedside Glucose (Misc Panel) 157H CBC/BMP Laboratory Tests 12/12/18 05:46 Red Blood Count 4.06 L, Mean Corpuscular Volume 87.9, Mean Corpuscular Hemoglobin 29.8, Mean Corpuscular Hemoglobin Concent 33.9, Red Cell Distribution Width 13.9, Neutrophils (%) (Auto) 87.6 H, Lymphocytes (%) (Auto) 7.4 L, Monocytes (%) (Auto) 3.0, Eosinophils (%) (Auto) 0.0, Basophils (%) (Auto) 0.2, Neutrophils # (Auto) 8.0 H, Lymphocytes # (Auto) 0.7 L, Monocytes # (Auto) 0.3, Eosinophils # (Auto) 0.0, Basophils # (Auto) 0.0, Calcium Level 7.8 L Microbiology Microbiology 12/03/18 Blood Culture - Final, Complete NO GROWTH AFTER 5 DAYS 12/03/18 Blood Culture - Final, Complete NO GROWTH AFTER 5 DAYS 12/04/18 Stool Occult Blood (LEONA) - Final, Complete 12/03/18 Stool Lactoferrin - Final, Complete 12/03/18 Gastrointestinal Tract Panel (PCR) - Final, Complete 12/07/18 Gram Stain - Final, Complete 12/07/18 Sputum Culture - Final, Complete Citrobacter Freundii Klebsiella Pneumoniae 12/07/18 MRSA Screen - Final, Complete JAYRO IBANEZ MD Dec 12, 2018 12:46
[2018-12-12 13:25] VITALS: BP 118/75
[2018-12-12] MEDS: BUDESONIDE EC 3 MG CAP (ENTOCORT EC) PO SCH (15:33)
[2018-12-12] MEDS: CALCIUM CARBONATE 500 MG CHEW U/D PO PRN (17:49)
[2018-12-12] MEDS ORDERED: FAT EMULSION IV 20% 500 ML IV SCH (18:00)
[2018-12-12 21:50] VITALS: BP 138/87
[2018-12-13] MEDS: MESALAMINE 400 MG CAPSULE DELAYED RELEASE (DELZICOL) PO SCH ×5 (00:09→23:27)
[2018-12-13] MEDS: ACETAMINOPHEN TAB 650MG DOSE (2X325MG) PO PRN (00:09)
[2018-12-13] MEDS: HumaLOG INSULIN (NovoLOG) PER UNIT SC SCH ×5 (00:09→23:27)
[2018-12-13] MEDS: CALCIUM CARBONATE 500 MG CHEW U/D PO PRN ×3 (00:32→15:37)
[2018-12-13] MEDS: SODIUM CHLORIDE 0.9% INJ 10 ML SYR IV SCH ×2 (05:13→17:45)
[2018-12-13 05:37] VITALS: BP 115/71
[2018-12-13 06:36] LABS: BASO % 0.1 % (0.0-1.0); HEMOGLOBIN 10.5 g/dl (13.5-17.5); LYMPH # 0.7 10^3/uL (1.5-4.5); LYMPH % 7.5 % (24.0-44.0); MEAN CORPUSCULAR HEMOGLOBIN 29.1 pg (27.0-33.0); MEAN CORPUSCULAR HGB CONC 33.9 g/dl (32.0-36.5); MEAN CORPUSCULAR VOLUME 85.9 fl (80.0-96.0); MONO # 0.4 10^3/uL (0.0-0.8); MONO % 3.9 % (0.0-5.0); NEUTROPHILS # 7.7 10^3/uL (1.8-7.7); NEUTROPHILS % 86.7 % (36.0-66.0); RED BLOOD COUNT 3.61 10^6/uL (4.30-6.10); WHITE BLOOD COUNT 8.9 10^3/uL (4.0-10.0)
[2018-12-13 06:39] LABS: PLATELET COUNT, AUTOMATED 76 10^3/uL (150-450)
[2018-12-13 07:21] LABS: BLOOD UREA NITROGEN 16 MG/DL (7-18); CALCIUM LEVEL 7.7 MG/DL (8.5-10.1); CARBON DIOXIDE LEVEL 21 MEQ/L (21-32); CHLORIDE LEVEL 110 MEQ/L (98-107); GLOMERULAR FILTRATION RATE > 60.0 (>56); GLUCOSE, FASTING 143 MG/DL (70-100); POTASSIUM SERUM 3.6 MEQ/L (3.5-5.1); SODIUM LEVEL 137 MEQ/L (136-145)
[2018-12-13] MEDS: LACTOBACILLUS ACIDOPHILUS CAP (BACID) PO SCH (08:16)
[2018-12-13] MEDS: CHLORHEXIDINE GLUCONATE 0.12 % 15ML UDC (PERIDEX ORAL RINSE) MT SCH ×2 (08:16→20:12)
[2018-12-13] MEDS: CHOLESTYRAMINE 4 GM PWD PKT PO SCH ×3 (08:16→20:00)
[2018-12-13] MEDS: MULTIVITAMINS/MINERALS THERAP 1 TAB PO SCH (08:16)
[2018-12-13] MEDS: ATOVAQUONE SUSP 750MG/5ML 210 ML BTL PO SCH (08:17)
[2018-12-13] MEDS: LOPERAMIDE 2 MG CAP PO SCH ×2 (08:17→20:13)
[2018-12-13] MEDS: methylPREDNISolone INJ 40 MG/1 ML VIAL (J2920) IV SCH ×2 (08:17→20:12)
[2018-12-13] MEDS: FERROUS GLUCONATE 324 MG TAB PO SCH (08:17)
[2018-12-13] MEDS: CYANOCOBALAMIN 500 MCG TAB PO SCH (08:17)
[2018-12-13] MEDS: LOMOTIL 2.5MG/0.025MG TABLET PO SCH ×4 (08:17→20:12)
--- NOTE | 2018-12-13 09:38 | IPNPDOC ---
Subjective Date Seen The patient was seen on 12/13/18. Time of service 8 AM Subjective Chief Complaint/HPI Diarrhea Events since last encounter The patient reports that his diarrhea has slowed down significantly and he slept well last night. He reports gaining 4 kg over the last 24 hours and has noticed that both legs are a lot more swollen. Objective Physical Examination General Exam: Positive: Cooperative, No Acute Distress, Other (asleep but arousable w vocal stimuli) Eye Exam: Positive: Conjunctiva & lids normal ENT Exam: Positive: Atraumatic, Mucous membr. moist/pink, Other ENT (mild temporal wasting) Chest Exam: Positive: Clear to auscultation, Normal air movement Heart Exam: Positive: Rate Normal, Normal S1, Normal S2 Abdomen Exam: Positive: Soft, Tenderness (no abdominal tenderness) Extremity Exam: Positive: Other (BLE edema, gait normal) Skin Exam: Positive: Other skin issue (generalized palor) Neuro Exam: Positive: Normal Speech, Cranial Nerves 3-12 NL Psych Exam: Positive: Oriented x 3 Assessment /Plan Assessment is a 48 yr old M w a PMH of IBD, Asthma and Arthritis who is admitted for management of dehydration 2/2 diarrhea. 1.Diarrhea 2/2 Atypical IBD -Improving -metabolic acidosis was a sequelae of diarrhea Plan: Appreciate 's recommendations c/w solumedrol, Entyvio, mesalamine, budesonide,lomitil, imodium, probiotics and IVF PRN / will follow up with GI to discuss his new home regimen/ will consult Staffing Branch Manager to discuss good sources of protein for vegans and ask SW to help us obtain info about IBD support groups 2. Bicytopenia Anemia is 2/2 B12 deficiency and Iron Deficiency Thrombocytopenia is possibly an ADR to abx ( we discontinued Bactrim) Plan: f/u CBC / continue with B12 and iron supplements 3.Hx of Cavitary Lung lessions -resolved -sputum cx is growing Citerobacter and Klebsiella but per this may be a contaminang -Based on CT findings. These have resolved Plan: Per discussion with Dr. Auguste we have switched from Bactrim to Atovaquone for PCP px / continue with order aspiration precautions, incentive spirometer, and ask nursing staff to keep head of bed elevated. We will also order chlorhexidine mouthwash 4. [id number] -Corrected calcium 8.7 Plan; no need for intervention 5 .Deconditioning Plan: PT for exercise. 6. Chronic asthma. Asymptomatic. 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 Plan/VTE VTE Prophylaxis Ordered?: Yes VS, I&O, 24H, Fishbone Vital Signs/I&O Vital Signs Date Time Temp Pulse Resp B/P (MAP) Pulse Ox O2 Delivery O2 Flow Rate FiO2 12/13/18 05:37 97.7 75 18 115/71 (86) 95 I&O- Last 24 Hours up to 6 AM 12/13/18 06:00 Intake Total 2215 ml Output Total 2800 ml Balance -585 ml Laboratory Data 24H LABS Laboratory Tests 2 12/12/18 11:35: Bedside Glucose (Misc Panel) 157H 12/12/18 17:06: Bedside Glucose (Misc Panel) 153H 12/13/18 00:05: Bedside Glucose (Misc Panel) 146H 12/13/18 05:35: Bedside Glucose (Misc Panel) 151H 12/13/18 05:45: Immature Granulocyte % (Auto) 1.8, White Blood Count 8.9, Red Blood Count 3.61L, Hemoglobin 10.5L, Hematocrit 31.0L, Mean Corpuscular Volume 85.9, Mean Corpuscular Hemoglobin 29.1, Mean Corpuscular Hemoglobin Concent 33.9, Red Cell Distribution Width 13.9, Platelet Count 76L, Neutrophils (%) (Auto) 86.7H, Lymphocytes (%) (Auto) 7.5L, Monocytes (%) (Auto) 3.9, Eosinophils (%) (Auto) 0.0, Basophils (%) (Auto) 0.1, Neutrophils # (Auto) 7.7, Lymphocytes # (Auto) 0.7L, Monocytes # (Auto) 0.4, Eosinophils # (Auto) 0.0, Basophils # (Auto) 0.0, Nucleated Red Blood Cells % (auto) 0.0, Immature Platelet Fraction 10.0, Anion Gap 6L, Glomerular Filtration Rate > 60.0, Blood Urea Nitrogen 16, Creatinine 1.00, Sodium Level 137, Potassium Level 3.6, Chloride Level 110H, Carbon Dioxide Level 21, Calcium Level 7.7L CBC/BMP Laboratory Tests 12/13/18 05:45 Red Blood Count 3.61 L, Mean Corpuscular Volume 85.9, Mean Corpuscular Hemoglobin 29.1, Mean Corpuscular Hemoglobin Concent 33.9, Red Cell Distribution Width 13.9, Neutrophils (%) (Auto) 86.7 H, Lymphocytes (%) (Auto) 7.5 L, Monocytes (%) (Auto) 3.9, Eosinophils (%) (Auto) 0.0, Basophils (%) (Auto) 0.1, Neutrophils # (Auto) 7.7, Lymphocytes # (Auto) 0.7 L, Monocytes # (Auto) 0.4, Eosinophils # (Auto) 0.0, Basophils # (Auto) 0.0, Calcium Level 7.7 L Microbiology Microbiology 12/03/18 Blood Culture - Final, Complete NO GROWTH AFTER 5 DAYS 12/03/18 Blood Culture - Final, Complete NO GROWTH AFTER 5 DAYS 12/04/18 Stool Occult Blood (LEONA) - Final, Complete 12/03/18 Stool Lactoferrin - Final, Complete 12/03/18 Gastrointestinal Tract Panel (PCR) - Final, Complete 12/07/18 Gram Stain - Final, Complete 12/07/18 Sputum Culture - Final, Complete Citrobacter Freundii Klebsiella Pneumoniae 12/07/18 MRSA Screen - Final, Complete JAYRO IBANEZ MD Dec 13, 2018 09:38
[2018-12-13] MEDS: AMINO AC/ELECTROLYTE/DEX/CALC 1,000 ML IV SCH ×2 (09:39→22:55)
[2018-12-13 14:00] VITALS: BP 115/72
[2018-12-13] MEDS: BUDESONIDE EC 3 MG CAP (ENTOCORT EC) PO SCH (15:37)
[2018-12-13] MEDS ORDERED: FAT EMULSION IV 20% 500 ML IV SCH (18:00)
[2018-12-13 22:00] VITALS: BP 117/74
[2018-12-13] MEDS: SODIUM CHLORIDE 0.9% INJ 10 ML SYR IV PRN (22:56)
[2018-12-14] MEDS: ACETAMINOPHEN TAB 650MG DOSE (2X325MG) PO PRN (04:56)
[2018-12-14 06:00] VITALS: BP 103/67
[2018-12-14] MEDS: SODIUM CHLORIDE 0.9% INJ 10 ML SYR IV SCH ×2 (06:00→17:32)
[2018-12-14] MEDS: HumaLOG INSULIN (NovoLOG) PER UNIT SC SCH ×3 (06:13→18:19)
[2018-12-14] MEDS: MESALAMINE 400 MG CAPSULE DELAYED RELEASE (DELZICOL) PO SCH ×3 (06:13→18:19)
[2018-12-14 07:01] LABS: BASO # 0.1 10^3/uL (0.0-0.2); BASO % 0.4 % (0.0-1.0); HEMATOCRIT 31.8 % (42.0-52.0); HEMOGLOBIN 10.7 g/dl (13.5-17.5); LYMPH % 8.7 % (24.0-44.0); MEAN CORPUSCULAR HEMOGLOBIN 29.4 pg (27.0-33.0); MEAN CORPUSCULAR HGB CONC 33.6 g/dl (32.0-36.5); MEAN CORPUSCULAR VOLUME 87.4 fl (80.0-96.0); MONO # 0.7 10^3/uL (0.0-0.8); MONO % 5.5 % (0.0-5.0); NEUTROPHILS # 9.6 10^3/uL (1.8-7.7); NEUTROPHILS % 80.9 % (36.0-66.0); RED BLOOD COUNT 3.64 10^6/uL (4.30-6.10); WHITE BLOOD COUNT 11.9 10^3/uL (4.0-10.0)
[2018-12-14 07:13] LABS: PLATELET COUNT, AUTOMATED 87 10^3/uL (150-450)
[2018-12-14 07:22] LABS: BLOOD UREA NITROGEN 16 MG/DL (7-18); CALCIUM LEVEL 7.9 MG/DL (8.5-10.1); CARBON DIOXIDE LEVEL 21 MEQ/L (21-32); CHLORIDE LEVEL 110 MEQ/L (98-107); CREATININE FOR GFR 0.98 MG/DL (0.70-1.30); GLOMERULAR FILTRATION RATE > 60.0 (>56); GLUCOSE, FASTING 131 MG/DL (70-100); POTASSIUM SERUM 3.3 MEQ/L (3.5-5.1); SODIUM LEVEL 140 MEQ/L (136-145)
[2018-12-14] MEDS: ATOVAQUONE SUSP 750MG/5ML 210 ML BTL PO SCH (08:24)
[2018-12-14] MEDS: LOMOTIL 2.5MG/0.025MG TABLET PO SCH ×4 (08:24→20:58)
[2018-12-14] MEDS: CHOLESTYRAMINE 4 GM PWD PKT PO SCH ×3 (08:24→21:27)
[2018-12-14] MEDS: methylPREDNISolone INJ 40 MG/1 ML VIAL (J2920) IV SCH ×2 (08:24→20:58)
[2018-12-14] MEDS: CHLORHEXIDINE GLUCONATE 0.12 % 15ML UDC (PERIDEX ORAL RINSE) MT SCH ×2 (08:24→20:58)
[2018-12-14] MEDS: MULTIVITAMINS/MINERALS THERAP 1 TAB PO SCH (08:25)
[2018-12-14] MEDS: LOPERAMIDE 2 MG CAP PO SCH ×2 (08:25→20:59)
[2018-12-14] MEDS: LACTOBACILLUS ACIDOPHILUS CAP (BACID) PO SCH (08:25)
[2018-12-14] MEDS: CYANOCOBALAMIN 500 MCG TAB PO SCH (08:25)
[2018-12-14] MEDS: FERROUS GLUCONATE 324 MG TAB PO SCH (08:25)
[2018-12-14] MEDS ORDERED: POTASSIUM CHLORIDE 10 MEQ SR TABLET PO ONE (09:00)
[2018-12-14] MEDS: AMINO AC/ELECTROLYTE/DEX/CALC 1,000 ML IV SCH (13:05)
[2018-12-14 14:00] VITALS: BP 114/78
[2018-12-14] MEDS: BUDESONIDE EC 3 MG CAP (ENTOCORT EC) PO SCH (15:54)
--- NOTE | 2018-12-14 16:38 | IPNPDOC ---
Subjective Date Seen The patient was seen on 12/14/18. Time of service 2:50 PM Subjective Chief Complaint/HPI Diarrhea Events since last encounter The patient reports that the diarrhea has slowed down significantly. Overnight, he had several episodes of flatulence and some muscle cramps. Overall, he reports feeling better and is in good spirits. Objective Physical Examination General Exam: Positive: Cooperative, No Acute Distress Eye Exam: Positive: Conjunctiva & lids normal ENT Exam: Positive: Atraumatic, Mucous membr. moist/pink, Other ENT (mild temporal wasting) Chest Exam: Positive: Clear to auscultation, Normal air movement Heart Exam: Positive: Rate Normal, Normal S1, Normal S2 Abdomen Exam: Positive: BS Hypoactive, Soft, Tenderness (no abdominal tenderness) Extremity Exam: Positive: Other Skin Exam: Positive: Other skin issue (generalized palor) Neuro Exam: Positive: Normal Speech, Cranial Nerves 3-12 NL Psych Exam: Positive: Oriented x 3 Assessment /Plan Assessment is a 48 yr old M w a PMH of IBD, Asthma and Arthritis who is admitted for management of dehydration 2/2 diarrhea. 1.Diarrhea 2/2 Atypical IBD -Improving -metabolic acidosis was a sequelae of diarrhea -The patient talked with the dietitian yesterday about high-protein sources of food for vegans with IBS Plan: Appreciate 's recommendations c/w solumedrol, Entyvio, mesalamine,lomitil, imodium, probiotics and IVF PRN / tomorrow we will stop the Solu-Medrol in favor of budesonide and 40 mg of prednisone by mouth twice a day / will encourage patient to look into joining an IBS support group 2. Bicytopenia Anemia is 2/2 B12 deficiency and Iron Deficiency Thrombocytopenia is possibly an ADR to abx ( we discontinued Bactrim) Plan: f/u CBC / continue with B12 and iron supplements 3.BLE Edema -likely 2/2 third spacing due to low oncotic pressure in the setting of low albumin -Despite the previous echo report the patient reports that he does not have Chronic Systolic /Diastolic CHF. . He reviewed his Echo report with a Cardiol ogist who told him that it appears that his EF is low bc he has lost a lot of weight. 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 These have resolved Plan: Per discussion with Dr. Auguste we have switched from Bactrim to Atovaquone for PCP px / continue with order aspiration precautions, incentive spirometer, and ask nursing staff to keep head of bed elevated. We will also order chlorhexidine mouthwash 5. Sizyjp-lqfa-nrbkkjmk -Corrected calcium 8.7 Plan; no need for intervention 6.Deconditioning Plan: PT for exercise. 7. Chronic asthma. Asymptomatic. Plan: Albuterol when necessary 8. Hypokalemia. Plan: Replete potassium DVT prophylaxis with Lovenox DISPO: Within the next few days Plan/VTE VTE Prophylaxis Ordered?: Yes VS, I&O, 24H, Fishbone Vital Signs/I&O Vital Signs Date Time Temp Pulse Resp B/P (MAP) Pulse Ox O2 Delivery O2 Flow Rate FiO2 12/14/18 14:00 98.0 73 14 114/78 (90) 95 I&O- Last 24 Hours up to 6 AM 12/14/18 05:59 Intake Total 1805 ml Output Total 2950 ml Balance -1145 ml Laboratory Data 24H LABS Laboratory Tests 2 12/13/18 16:38: Bedside Glucose (Misc Panel) 138H 12/13/18 23:19: Bedside Glucose (Misc Panel) 141H 12/14/18 05:53: Bedside Glucose (Misc Panel) 145H 12/14/18 06:20: Immature Granulocyte % (Auto) 4.5H, White Blood Count 11.9H, Red Blood Count 3.64L, Hemoglobin 10.7L, Hematocrit 31.8L, Mean Corpuscular Volume 87.4, Mean Corpuscular Hemoglobin 29.4, Mean Corpuscular Hemoglobin Concent 33.6, Red Cell Distribution Width 14.1, Platelet Count 87L, Neutrophils (%) (Auto) 80.9H, Lymphocytes (%) (Auto) 8.7L, Monocytes (%) (Auto) 5.5H, Eosinophils (%) (Auto) 0.0, Basophils (%) (Auto) 0.4, Neutrophils # (Auto) 9.6H, Lymphocytes # (Auto) 1.0L, Monocytes # (Auto) 0.7, Eosinophils # (Auto) 0.0, Basophils # (Auto) 0.1, Nucleated Red Blood Cells % (auto) 0.0, Immature Platelet Fraction 10.2, Anion Gap 9, Glomerular Filtration Rate > 60.0, Blood Urea Nitrogen 16, Creatinine 0.98, Sodium Level 140, Potassium Level 3.3L, Chloride Level 110H, Carbon Dioxide Level 21, Calcium Level 7.9L 12/14/18 11:05: Bedside Glucose (Misc Panel) 154H CBC/BMP Laboratory Tests 12/14/18 06:20 Red Blood Count 3.64 L, Mean Corpuscular Volume 87.4, Mean Corpuscular Hemoglobin 29.4, Mean Corpuscular Hemoglobin Concent 33.6, Red Cell Distribution Width 14.1, Neutrophils (%) (Auto) 80.9 H, Lymphocytes (%) (Auto) 8.7 L, Monocytes (%) (Auto) 5.5 H, Eosinophils (%) (Auto) 0.0, Basophils (%) (Auto) 0.4, Neutrophils # (Auto) 9.6 H, Lymphocytes # (Auto) 1.0 L, Monocytes # (Auto) 0.7, Eosinophils # (Auto) 0.0, Basophils # (Auto) 0.1, Calcium Level 7.9 L Microbiology Microbiology 12/04/18 Stool Occult Blood (LEONA) - Final, Complete 12/07/18 Gram Stain - Final, Complete 12/07/18 Sputum Culture - Final, Complete Citrobacter Freundii Klebsiella Pneumoniae 12/07/18 MRSA Screen - Final, Complete JAYRO IBANEZ MD Dec 14, 2018 16:38
[2018-12-14] MEDS ORDERED: FAT EMULSION IV 20% 500 ML IV SCH (18:00)
[2018-12-14 22:00] VITALS: BP 134/85
[2018-12-15] MEDS: HumaLOG INSULIN (NovoLOG) PER UNIT SC SCH ×5 (00:13→23:15)
[2018-12-15] MEDS: MESALAMINE 400 MG CAPSULE DELAYED RELEASE (DELZICOL) PO SCH ×5 (00:13→23:14)
[2018-12-15] MEDS: AMINO AC/ELECTROLYTE/DEX/CALC 1,000 ML IV SCH ×2 (02:01→15:44)
[2018-12-15 06:00] VITALS: BP 120/76
[2018-12-15] MEDS: SODIUM CHLORIDE 0.9% INJ 10 ML SYR IV SCH ×2 (06:00→18:00)
[2018-12-15 06:23] LABS: HEMATOCRIT 30.2 % (42.0-52.0); HEMOGLOBIN 10.1 g/dl (13.5-17.5); MEAN CORPUSCULAR HEMOGLOBIN 28.8 pg (27.0-33.0); MEAN CORPUSCULAR HGB CONC 33.4 g/dl (32.0-36.5); RED BLOOD COUNT 3.51 10^6/uL (4.30-6.10)
[2018-12-15 06:25] LABS: PLATELET COUNT, AUTOMATED 97 10^3/uL (150-450)
[2018-12-15 06:39] LABS: BLOOD UREA NITROGEN 16 MG/DL (7-18); CALCIUM LEVEL 7.9 MG/DL (8.5-10.1); CARBON DIOXIDE LEVEL 23 MEQ/L (21-32); CHLORIDE LEVEL 112 MEQ/L (98-107); CREATININE FOR GFR 0.87 MG/DL (0.70-1.30); GLOMERULAR FILTRATION RATE > 60.0 (>56); GLUCOSE, FASTING 138 MG/DL (70-100); POTASSIUM SERUM 3.1 MEQ/L (3.5-5.1); SODIUM LEVEL 143 MEQ/L (136-145)
[2018-12-15 07:08] LABS: LYMPHOCYTES 11 % (16-52); METAMYELOCYTES 1 % (0-0); MONOCYTES 4 % (0-8); MYELOCYTES 1 % (0-0); NEUTROPHILS 83 % (35-75)
[2018-12-15 07:09] LABS: PLATELET ESTIMATE DECREASED (NORMAL)
[2018-12-15] MEDS: CHLORHEXIDINE GLUCONATE 0.12 % 15ML UDC (PERIDEX ORAL RINSE) MT SCH ×2 (08:48→20:50)
[2018-12-15] MEDS: ATOVAQUONE SUSP 750MG/5ML 210 ML BTL PO SCH (08:48)
[2018-12-15] MEDS: methylPREDNISolone INJ 40 MG/1 ML VIAL (J2920) IV SCH (08:48)
[2018-12-15] MEDS: LOMOTIL 2.5MG/0.025MG TABLET PO SCH ×4 (08:49→20:51)
[2018-12-15] MEDS: CHOLESTYRAMINE 4 GM PWD PKT PO SCH ×3 (08:49→20:51)
[2018-12-15] MEDS: CYANOCOBALAMIN 500 MCG TAB PO SCH (08:49)
[2018-12-15] MEDS: POTASSIUM CHL PWD 20 MEQ PACKET PO SCH ×2 (08:49→09:07)
[2018-12-15] MEDS: LACTOBACILLUS ACIDOPHILUS CAP (BACID) PO SCH (08:49)
[2018-12-15] MEDS: MULTIVITAMINS/MINERALS THERAP 1 TAB PO SCH (08:49)
[2018-12-15] MEDS: FERROUS GLUCONATE 324 MG TAB PO SCH (08:50)
[2018-12-15] MEDS: LOPERAMIDE 2 MG CAP PO SCH ×2 (08:50→20:51)
[2018-12-15] MEDS: POTASSIUM CHLORIDE 10 MEQ SR TABLET PO SCH ×3 (13:04→23:15)
[2018-12-15] MEDS: SODIUM CHLORIDE 0.9% INJ 10 ML SYR IV PRN (13:04)
[2018-12-15 14:00] VITALS: BP 112/84
[2018-12-15] MEDS: BUDESONIDE EC 3 MG CAP (ENTOCORT EC) PO SCH (15:44)
--- NOTE | 2018-12-15 16:39 | IPNPDOC ---
Subjective Date Seen The patient was seen on 12/15/18. time of service 805am Subjective Chief Complaint/HPI diarrhea Events since last encounter Mr. Garcia reports feeling much better today. He reports having only 2 episodes of diarrhea and multiple episodes of flatulence in the last 24 hours. Objective Physical Examination General Exam: Positive: Cooperative, No Acute Distress Eye Exam: Positive: Conjunctiva & lids normal ENT Exam: Positive: Atraumatic, Mucous membr. moist/pink, Other ENT (mild temporal wasting) Chest Exam: Positive: Clear to auscultation, Normal air movement Heart Exam: Positive: Rate Normal, Normal S1, Normal S2 Abdomen Exam: Positive: BS Hypoactive, Soft, Tenderness (no abdominal tenderness) Extremity Exam: Positive: Other Skin Exam: Positive: Other skin issue (generalized palor) Neuro Exam: Positive: Normal Speech, Cranial Nerves 3-12 NL Psych Exam: Positive: Mood NL, Oriented x 3 Assessment /Plan Assessment is a 48 yr old M w a PMH of IBD, Asthma and Arthritis who is admitted for management of dehydration 2/2 diarrhea. 1.Diarrhea 2/2 Atypical IBD -resolving Plan: Appreciate 's recommendations c/wEntyvio, mesalamine,lomitil, imodium, probiotics / stop Solu-Medrol and start budesonide +40 mg of prednisone by mouth twice a day / will encourage patient to look into joining an IBS support group 2. Bicytopenia -Anemia is 2/2 B12 deficiency and Iron Deficiency -Thrombocytopenia is possibly an ADR to abx ( we discontinued Bactrim) Plan: f/u CBC / continue with B12 and iron supplements 3.BLE Edema- -likely 2/2 third spacing due to low oncotic pressure in the setting of low albumin is resolving -Despite the previous echo report the patient reports that he does not have Ch ronic Systolic /Diastolic CHF. . He reviewed his Echo report with a Protective Service Specialist who told him that it appears that his EF is low bc he has lost a lot of weight. 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 These have resolved Plan: Per discussion with Dr. Auguste we have switched from Bactrim to Atovaquone for PCP px / continue with order aspiration precautions, incentive spirometer, and ask nursing staff to keep head of bed elevated. We will also order chlorhexidine mouthwash 5. [id number]-nafledjh -Corrected calcium 8.7 Plan; no need for intervention 6.Deconditioning Plan: PT for exercise. 7. Chronic asthma. Asymptomatic. Plan: Albuterol when necessary 8. Hypokalemia. Plan: Replete potassium as needed DVT prophylaxis with Lovenox DISPO: Likely home tomorrow Plan/VTE VTE Prophylaxis Ordered?: Yes VS, I&O, 24H, Fishbone Vital Signs/I&O Vital Signs Date Time Temp Pulse Resp B/P (MAP) Pulse Ox O2 Delivery O2 Flow Rate FiO2 12/15/18 14:00 96.8 83 18 112/84 (93) 99 I&O- Last 24 Hours up to 6 AM 12/15/18 06:00 Intake Total 1500 ml Output Total 4550 ml Balance -3050 ml Laboratory Data 24H LABS Laboratory Tests 2 12/14/18 16:47: Bedside Glucose (Misc Panel) 130H 12/15/18 00:03: Bedside Glucose (Misc Panel) 131H 12/15/18 06:05: Immature Granulocyte % (Auto) , Nucleated Red Blood Cells % (auto) 0.2H, Neutrophils 83H, Lymphocytes (Manual) 11L, Monocytes (Manual) 4, Metamyelocytes 1H, Myelocytes 1H, Platelet Estimate DECREASED, Anion Gap 8, Glomerular Filtration Rate > 60.0, Blood Urea Nitrogen 16, Creatinine 0.87, Sodium Level 143, Potassium Level 3.1L, Chloride Level 112H, Carbon Dioxide Level 23, Calcium Level 7.9L, Magnesium Level 2.0 12/15/18 06:07: Bedside Glucose (Misc Panel) 135H 12/15/18 12:17: Bedside Glucose (Misc Panel) 151H CBC/BMP Laboratory Tests 12/15/18 06:05 Red Blood Count 3.51 L, Mean Corpuscular Volume 86.0, Mean Corpuscular Hem oglobin 28.8, Mean Corpuscular Hemoglobin Concent 33.4, Red Cell Distribution Width 14.4, Calcium Level 7.9 L Microbiology Microbiology 12/07/18 Gram Stain - Final, Complete 12/07/18 Sputum Culture - Final, Complete Citrobacter Freundii Klebsiella Pneumoniae 12/07/18 MRSA Screen - Final, Complete JAYRO IBANEZ MD Dec 15, 2018 16:39
--- NOTE | 2018-12-15 17:27 | REP ---
Procedure: Mid line catheter insertion with Sacha-Luan The procedure was performed under the direct supervision of Dr. De La Vega. The risks and benefits of the procedure were explained to the patient and informed consent was obtained. The right basilic vein was localized using ultrasound guidance. The skin was prepped and draped in a sterile fashion. 1% lidocaine was used as a local anesthetic. Using ultrasound guidance the basilic vein was cannulated and a 0.018 guidewire was inserted. The needle was removed and a 4.5 Nigerian dilator and peel-away sheath was inserted over the guide wire. A 4.5 Nigerian single lumen catheter was cut to length of 16.5 cm. The dilator was removed and the catheter was inserted over the guide wire. The peel-away sheath was removed and the catheter was flushed with heparinized saline as per Hospital protocol. The catheter was affixed to the skin and a sterile dressing was applied. The patient tolerated the procedure well and there were no immediate complications. Reviewed by ANASTASIA Matt 12/11/2018 03:46 P Electronically Signed by Brandon De La Vega MD 12/15/2018 05:19 P
[2018-12-15] MEDS ORDERED: FAT EMULSION IV 20% 500 ML IV SCH (18:00)
[2018-12-15] MEDS: predniSONE 20 MG TAB PO SCH (20:50)
[2018-12-15 21:51] VITALS: BP 117/84
[2018-12-16] MEDS: AMINO AC/ELECTROLYTE/DEX/CALC 1,000 ML IV SCH (03:24)
[2018-12-16] MEDS: SODIUM CHLORIDE 0.9% INJ 10 ML SYR IV SCH (06:00)
[2018-12-16 06:12] VITALS: BP 117/72
[2018-12-16] MEDS: POTASSIUM CHLORIDE 10 MEQ SR TABLET PO SCH ×2 (06:35→13:16)
[2018-12-16] MEDS: MESALAMINE 400 MG CAPSULE DELAYED RELEASE (DELZICOL) PO SCH ×2 (06:35→13:16)
[2018-12-16] MEDS: HumaLOG INSULIN (NovoLOG) PER UNIT SC SCH ×2 (06:36→13:15)
[2018-12-16 06:53] LABS: HEMATOCRIT 27.9 % (42.0-52.0); HEMOGLOBIN 9.5 g/dl (13.5-17.5); MEAN CORPUSCULAR HEMOGLOBIN 29.3 pg (27.0-33.0); MEAN CORPUSCULAR HGB CONC 34.1 g/dl (32.0-36.5); MEAN CORPUSCULAR VOLUME 86.1 fl (80.0-96.0); PLATELET COUNT, AUTOMATED 121 10^3/uL (150-450); RED BLOOD COUNT 3.24 10^6/uL (4.30-6.10); WHITE BLOOD COUNT 11.8 10^3/uL (4.0-10.0)
[2018-12-16 07:13] LABS: LYMPHOCYTES 15 % (16-52); NEUTROPHILS 85 % (35-75)
[2018-12-16 07:14] LABS: PLATELET ESTIMATE NORMAL (NORMAL)
[2018-12-16 07:22] LABS: BLOOD UREA NITROGEN 15 MG/DL (7-18); CALCIUM LEVEL 7.7 MG/DL (8.5-10.1); CARBON DIOXIDE LEVEL 26 MEQ/L (21-32); CHLORIDE LEVEL 111 MEQ/L (98-107); CREATININE FOR GFR 0.77 MG/DL (0.70-1.30); GLOMERULAR FILTRATION RATE > 60.0 (>56); GLUCOSE, FASTING 135 MG/DL (70-100); MAGNESIUM LEVEL 1.9 MG/DL (1.8-2.4); POTASSIUM SERUM 3.1 MEQ/L (3.5-5.1); SODIUM LEVEL 143 MEQ/L (136-145)
[2018-12-16] MEDS: LOMOTIL 2.5MG/0.025MG TABLET PO SCH ×2 (07:30→13:16)
[2018-12-16] MEDS: CHLORHEXIDINE GLUCONATE 0.12 % 15ML UDC (PERIDEX ORAL RINSE) MT SCH (08:11)
[2018-12-16] MEDS: ATOVAQUONE SUSP 750MG/5ML 210 ML BTL PO SCH (08:11)
[2018-12-16] MEDS: FERROUS GLUCONATE 324 MG TAB PO SCH (08:12)
[2018-12-16] MEDS: LACTOBACILLUS ACIDOPHILUS CAP (BACID) PO SCH (08:12)
[2018-12-16] MEDS: CYANOCOBALAMIN 500 MCG TAB PO SCH (08:12)
[2018-12-16] MEDS: MULTIVITAMINS/MINERALS THERAP 1 TAB PO SCH (08:12)
[2018-12-16] MEDS: predniSONE 20 MG TAB PO SCH (08:12)
[2018-12-16] MEDS: CHOLESTYRAMINE 4 GM PWD PKT PO SCH (08:14)
[2018-12-16] MEDS: LOPERAMIDE 2 MG CAP PO SCH (08:14)
--- NOTE | 2018-12-16 09:08 | REP ---
Clinical: Follow up pneumonia . Comparison: 12/09/2018, 10/14/2018 . Technique: PA and lateral. Findings: The mediastinum and cardiac silhouette are normal. Minimal residual linear fibroatelectatic changes at the left base are identified and may represent residual chronic change/scarring related to prior infiltrate. No new acute process appreciated. No effusion. No pneumothorax. The skeletal structures are intact and normal. Impression: 1. No acute cardiopulmonary process. 2. Residual linear fibroatelectatic changes at the left base remain unchanged. Electronically Signed by Ramon Noyola MD 12/16/2018 09:00 A
[2018-12-16] MEDS ORDERED: ATOV5SUS PO (12:12)
--- NOTE | 2018-12-16 12:17 | DS.PDOC ---
Discharge Summary General Date of Admission Dec 03, 2018 at 18:15 Date of Discharge 12.16.18 Primary Care Physician: Klaus Ocasio [facility] Attending Physician: JAYRO IBANEZ MD Specialist/Consultants Involve: TAURUS HUBER MD Specialist/Consultants Involve Discharge Summary PROCEDURES PERFORMED DURING STAY: Midline placement for TPN. ADMITTING DIAGNOSES: 1. Dehydration/follow-up depletion secondary to IBD flare. 2. History of cavitary lung lesions. DISCHARGE DIAGNOSES: 1. Diarrhea secondary to atypical IBD, resolved. 2. Bicytopenia secondary to B12 and iron deficiency. 3. Bilateral lower extremity edema secondary to low albumin. 4. History of cavitary lung lesions resolving 5. Deconditioning COMPLICATIONS/CHIEF COMPLAINT: Dehydration. HISTORY OF PRESENT ILLNESS: Mr. Garcia is a 48-year-old male who per HPI presented with complaints of 7-8 episodes of profuse watery, nonbloody diarrhea. Associated symptoms included abdominal distention. The initial workup including CT scan and blood work revealed findings consistent with dehydration and mild ileus. HOSPITAL COURSE: He was admitted to the general medical floor, switched from by mouth prednisone to Solu-Medrol, started Entyvio and received TPN only for a few days while admitted. He was noted to have thrombocytopenia and switch from Bactrim to a tovaquone. He also received IV fluids, had his electrolytes repleted, was evaluated by PT, and talked of the dietitian about a diet that is appropriately for person with IBD who is also a vegan. He was given information to join us IBD support group. He was reevaluated on the morning of December 16, at 7:55 AM he reported that his diarrhea has slowed down to 3 episodes of bowel movements in the last 24 hours. We discussed the discharge plan and medications. DISCHARGE MEDICATIONS: Please see below. ALLERGIES: Please see below. PHYSICAL EXAMINATION ON DISCHARGE: VITAL SIGNS: Please see below. GENERAL: Slim built, well-developed, no apparent distress HEENT:. Extraocular movements intact, mucous members moist and pink CARDIOVASCULAR EXAMINATION: Rate and rhythm, no murmurs, rubs or gallops RESPIRATORY EXAMINATION: Auscultation bilaterally on room air ABDOMINAL EXAMINATION:. Soft, bowel sounds present, nontender. Palpation EXTREMITIES: Range of motion intact 4 extremities SKIN:. Generalized pallor NEUROLOGICAL EXAMINATION:. Cranial nerves II-12 grossly intact. Speech is not dysarthric PSYCHIATRIC EXAMINATION:, Alert and oriented to person, place and time, able to understand and follow commands LABORATORY DATA: Please see below. IMAGING:. He had 3 chest x-rays, CT of the abdomen and pelvis, and a KUB done. Please see EMR for additional details PROGNOSIS: fair ACTIVITY: [As tolerated]. DIET: IBD. Diet DISCHARGE PLAN: 1. Resume budesonide, prednisone, and mesalamine. 2. Stop Bactrim and linezolid. 3. Start at atovaquone. 4. Follow-up with Dr. Huber within the next week. 5. Follow-up with your PCP within the next week DISPOSITION: Home DISCHARGE INSTRUCTIONS: 1. See discharge plan ITEMS TO FOLLOWUP ON ON OUTPATIENT: 1. IBS symptoms. 2. A long to continue antibiotics for PCP prophylaxis DISCHARGE CONDITION: [Stable]. TIME SPENT ON DISCHARGE: Greater than 35 minutes. Vital Signs/I&Os Vital Signs Date Time Temp Pulse Resp B/P (MAP) Pulse Ox O2 Delivery O2 Flow Rate FiO2 12/16/18 06:12 97.5 72 20 117/72 (87) 98 I&O- Last 24 Hours up to 6 AM 12/16/18 06:00 Intake Total 2200 ml Output Total 2750 ml Balance -550 ml Laboratory Data Labs 24H Laboratory Tests 2 12/15/18 12:17: Bedside Glucose (Misc Panel) 151H 12/15/18 18:03: Bedside Glucose (Misc Panel) 124H 12/15/18 23:06: Bedside Glucose (Misc Panel) 125H 12/16/18 06:08: Bedside Glucose (Misc Panel) 132H 12/16/18 06:35: Immature Granulocyte % (Auto) , Nucleated Red Blood Cells % (auto) 0.3H, Neutrophils 85H, Lymphocytes (Manual) 15L, Platelet Estimate NORMAL, Red Blood Cell Morphology NORMAL, Anion Gap 6L, Glomerular Filtration Rate > 60.0, Blood Urea Nitrogen 15, Creatinine 0.77, Sodium Level 143, Potassium Level 3.1L, Chloride Level 111H, Carbon Dioxide Level 26, Calcium Level 7.7L, Magnesium Level 1.9 12/16/18 12:01: Bedside Glucose (Misc Panel) 137H CBC/BMP Laboratory Tests 12/16/18 06:35 Red Blood Count 3.24 L, Mean Corpuscular Volume 86.1, Mean Corpuscular Hemoglobin 29.3, Mean Corpuscular Hemoglobin Concent 34.1, Red Cell Distribution Width 14.1, Calcium Level 7.7 L FSBS Laboratory Tests Test 12/15/18 12:17 12/15/18 18:03 12/15/18 23:06 12/16/18 06:08 Range/Units Bedside Glucose (Misc Panel) 151 124 125 132 70-105 MG/DL Test 12/16/18 12:01 Range/Units Bedside Glucose (Misc Panel) 137 70-105 MG/DL Microbiology Microbiology 12/07/18 Gram Stain - Final, Complete 12/07/18 Sputum Culture - Final, Complete Citrobacter Freundii Klebsiella Pneumoniae 12/07/18 MRSA Screen - Final, Complete Discharge Medications Scheduled Atovaquone (Atovaquone) 750 Mg/5 Ml Oral.susp, 1,500 MG PO DAILY@0800 Budesonide (Budesonide EC) 3 Mg Capdr...er, 9 MG PO DAILY, (Reported) Cholestyramine (with Sugar) (Questran Packet) 4 Gm Powd.pack, 4 GM PO DAILY, (Reported) Lactobacillus Combo No.10 (Probiotic) 1 Each Capsule, 1 CAP PO DAILY, (Reported) Loperamide HCl (Anti-Diarrheal) 2 Mg Capsule, 4 MG PO Q6H, (Reported) Mesalamine (Mesalamine) 800 Mg Tablet.dr, 800 MG PO Q6H, (Reported) Multivitamin (Multivitamins) 1 Each Tablet, 1 TAB PO DAILY, (Reported) Prednisone (Prednisone) 20 Mg Tablet, 40 MG PO DAILY, (Reported) Scheduled PRN Acetaminophen (Acetaminophen) 325 Mg Tablet, 650 MG PO Q6H PRN for PAIN, (Reported) Albuterol Sulfate (Proair Hfa) 8.5 Gm Hfa.aer.ad, 2 PUFF INH Q4H PRN for SHORTNESS OF BREATH, (Reported) Calcium Carbonate (Tums) 300 Mg Tab.chew, 900 MG PO QID PRN for INDIGESTION, (Reported) Diphenoxylate HCl/Atropine (Lomotil 2.5-0.025 mg Tablet) 1 Each Tablet, 1 TAB PO BID PRN for DIARRHEA, (Reported) Allergies Coded Allergies: epinephrine (Verified Adverse Reaction, Intermediate, HIGH DOSE EPI - SEVERE SVT, 09/08/18) latex (Verified Adverse Reaction, Intermediate, Itching, 11/14/18) Pt states sensitivity to latex gloves. Gloves caused itching. codeine (Verified Adverse Reaction, Mild, hallucinations, 09/08/18) JAYRO IBANEZ MD Dec 16, 2018 12:17
[2018-12-16] MEDS ORDERED: predniSONE 20 MG TAB PO ONE (13:00)
[2018-12-16] MEDS ORDERED: PRED20TA PO (13:54)
== END 2018-12-16 14:05 | disposition home or self-care (01) | DRG 392 ==
LOC: M ED 14:04 → EEVIPCON 14:04 → M ED INP 18:15 → M MS5PR 20:16
PROVIDERS: ADMIT Hospitalist; ATTEND Internal Medicine
PROC: 05HB33Z Insertion of Infusion Device into Right Basilic Vein, Percutaneous Approach (ICD-10-PCS; principal; 2018-12-11 11:00)
PROC: 3E0336Z Introduction of Nutritional Substance into Peripheral Vein, Percutaneous Approach (ICD-10-PCS; 2018-12-13)
DX: K58.0 Irritable bowel syndrome with diarrhea (principal); E87.2 Acidosis; K56.7 Ileus, unspecified; E46 Unspecified protein-calorie malnutrition; J45.909 Unspecified asthma, uncomplicated; L40.50 Arthropathic psoriasis, unspecified; E86.0 Dehydration; R91.8 Other nonspecific abnormal finding of lung field; Z79.52 Long term (current) use of systemic steroids; Z79.899 Other long term (current) drug therapy; Z88.5 Allergy status to narcotic agent; Z88.8 Allergy status to other drugs, medicaments and biological substances; Z91.040 Latex allergy status; D69.6 Thrombocytopenia, unspecified; D51.9 Vitamin B12 deficiency anemia, unspecified; E83.51 Hypocalcemia; T39.4X5A Adverse effect of antirheumatics, not elsewhere classified, initial encounter

== ENCOUNTER → 2018-12-21 | Outpatient (REF) | payer OTHER ==
[~2018-12-21] MED LIST changes: +ATOV5SUS PO; +ENTY1INJ IV; +EQ A1CAP PO; +SULF1TAB30 PO; +TUMS750C22 PO
[2018-12-21 16:49] LABS: HEMATOCRIT 32.4 % (42.0-52.0); HEMOGLOBIN 10.3 g/dl (13.5-17.5); LYMPH # 0.6 10^3/uL (1.5-4.5); LYMPH % 7.1 % (24.0-44.0); MEAN CORPUSCULAR HEMOGLOBIN 28.9 pg (27.0-33.0); MEAN CORPUSCULAR HGB CONC 31.8 g/dl (32.0-36.5); MONO # 0.4 10^3/uL (0.0-0.8); NEUTROPHILS # 6.7 10^3/uL (1.8-7.7); PLATELET COUNT, AUTOMATED 160 10^3/uL (150-450); RED BLOOD COUNT 3.56 10^6/uL (4.30-6.10); WHITE BLOOD COUNT 7.8 10^3/uL (4.0-10.0)
[2018-12-21 17:06] LABS: ALBUMIN 2.8 GM/DL (3.2-5.2); ALT/SGPT 160 U/L (12-78); BILIRUBIN,TOTAL 0.4 MG/DL (0.2-1.0); BLOOD UREA NITROGEN 13 MG/DL (7-18); C REACTIVE PROTEIN QUANTITATIV < 0.30 MG/DL (0.00-0.30); CALCIUM LEVEL 7.8 MG/DL (8.5-10.1); CARBON DIOXIDE LEVEL 33 MEQ/L (21-32); CHLORIDE LEVEL 106 MEQ/L (98-107); CREATININE FOR GFR 0.52 MG/DL (0.70-1.30); GLOMERULAR FILTRATION RATE > 60.0 (>56); GLUCOSE, FASTING 119 MG/DL (70-100); POTASSIUM SERUM 3.1 MEQ/L (3.5-5.1); PREALBUMIN 39.1 MG/DL (20.0-40.0); SODIUM LEVEL 144 MEQ/L (136-145); TOTAL PROTEIN 4.9 GM/DL (6.4-8.2)
[2018-12-21 17:29] LABS: ERYTHROCYTE SEDIMENTATION RATE 6 mm/hr (0-20)
== END ==
LOC: M LAB REF 16:02
PROVIDERS: ATTEND Internal Medicine Gastroenterology
DX: K50.818 Crohn's disease of both small and large intestine with other complication (principal); E44.0 Moderate protein-calorie malnutrition

== ENCOUNTER 2018-12-25 15:57 | Outpatient (CLI) | payer OTHER ==
[~2018-12-25] VITALS: Ht 195.6 cm; Wt 94.5 kg
[~2018-12-25 15:57] MED LIST changes: -ENTY1INJ IV
[2018-12-25 16:00] VITALS: BP 119/71
[2018-12-25] MEDS ORDERED: VEDOLIZUMAB 300 MG in NS 250 ML IV ONE (16:30)
[2018-12-25] MEDS ORDERED: ENTY1INJ IV (16:58)
[2018-12-25 17:25] VITALS: BP 115/77
== END 2018-12-25 17:25 | disposition home or self-care (01) ==
LOC: M INFU 15:57
PROVIDERS: ATTEND Internal Medicine Gastroenterology
DX: K50.90 Crohn's disease, unspecified, without complications (principal); Z88.5 Allergy status to narcotic agent; Z88.8 Allergy status to other drugs, medicaments and biological substances
CPT/HCPCS: 96365; J3380

== ENCOUNTER → 2018-12-29 | Outpatient (REF) | payer OTHER ==
[~2018-12-29] MED LIST changes: -ENBR25IN3 SC; -ENBR50IN2 SC; +ENTY1INJ IV; +ETAN25SY SC; +ETAN50SY SC; -LOPE2TAB11 PO; +LOPE2TAB12 PO
[2018-12-29 20:49] LABS: APPEARANCE, URINE CLEAR (CLEAR); BACTERIA, URINE AUTO NEGATIVE (NEGATIVE); BILIRUBIN, URINE AUTO NEGATIVE (NEGATIVE); BLOOD, URINE BLOOD NEGATIVE (NEGATIVE); COLOR, URINE YELLOW (YELLOW); GLUCOSE, URINE (UA) AUTO NEGATIVE (NEGATIVE); KETONE, URINE AUTO NEGATIVE (NEGATIVE); LEUKOCYTE ESTERASE, URINE AUTO NEGATIVE (NEGATIVE); NITRITE, URINE AUTO NEGATIVE (NEGATIVE); PROTEIN, URINE AUTO NEGATIVE (NEGATIVE); RBC, URINE AUTO 0 /HPF (0-3); SQUAMOUS EPITHELIAL CELL UR AU 0 /HPF (0-6); UROBILINOGEN, URINE AUTO 0.2 mg/dL (0.0-2.0); WBC, URINE AUTO 1 /HPF (0-3)
[2018-12-29 20:53] LABS: BASO % 0.3 % (0.0-1.0); EOS % 0.1 % (0.0-3.0); HEMATOCRIT 33.6 % (42.0-52.0); HEMOGLOBIN 10.8 g/dl (13.5-17.5); LYMPH # 0.6 10^3/uL (1.5-4.5); LYMPH % 8.7 % (24.0-44.0); MEAN CORPUSCULAR HEMOGLOBIN 30.2 pg (27.0-33.0); MEAN CORPUSCULAR HGB CONC 32.1 g/dl (32.0-36.5); MEAN CORPUSCULAR VOLUME 93.9 fl (80.0-96.0); MONO # 0.2 10^3/uL (0.0-0.8); MONO % 3.1 % (0.0-5.0); NEUTROPHILS % 84.9 % (36.0-66.0); PLATELET COUNT, AUTOMATED 105 10^3/uL (150-450); RED BLOOD COUNT 3.58 10^6/uL (4.30-6.10); WHITE BLOOD COUNT 7.1 10^3/uL (4.0-10.0)
[2018-12-29 22:14] LABS: ALBUMIN 2.9 GM/DL (3.2-5.2); ALT/SGPT 95 U/L (12-78); BILIRUBIN,TOTAL 0.3 MG/DL (0.2-1.0); BLOOD UREA NITROGEN 14 MG/DL (7-18); CALCIUM LEVEL 7.9 MG/DL (8.5-10.1); CARBON DIOXIDE LEVEL 29 MEQ/L (21-32); CHLORIDE LEVEL 110 MEQ/L (98-107); CREATININE FOR GFR 0.51 MG/DL (0.70-1.30); FERRITIN 394 NG/ML (26-388); GLOMERULAR FILTRATION RATE > 60.0 (>56); GLUCOSE, FASTING 149 MG/DL (70-100); IRON (FE) 57 UG/DL (65-175); MAGNESIUM LEVEL 1.8 MG/DL (1.8-2.4); PERCENT SATURATION 24.2 % (19.7-50.0); POTASSIUM SERUM 2.9 MEQ/L (3.5-5.1); PREALBUMIN 30.1 MG/DL (20.0-40.0); SODIUM LEVEL 147 MEQ/L (136-145); TOTAL IRON BINDING CAPACITY 236 UG/DL (250-450); TOTAL PROTEIN 5.1 GM/DL (6.4-8.2)
== END ==
LOC: M SFHCLERA 14:47
PROVIDERS: ATTEND Family Medicine
DX: R60.0 Localized edema (principal); E88.09 Other disorders of plasma-protein metabolism, not elsewhere classified; D64.9 Anemia, unspecified; K52.9 Noninfective gastroenteritis and colitis, unspecified

== ENCOUNTER → 2019-01-01 | Outpatient (REF) | payer OTHER ==
[2019-01-01 20:19] LABS: BASO % 0.1 % (0.0-1.0); HEMATOCRIT 34.2 % (42.0-52.0); HEMOGLOBIN 10.9 g/dl (13.5-17.5); LYMPH # 0.7 10^3/uL (1.5-4.5); LYMPH % 9.5 % (24.0-44.0); MEAN CORPUSCULAR HEMOGLOBIN 30.6 pg (27.0-33.0); MEAN CORPUSCULAR HGB CONC 31.9 g/dl (32.0-36.5); MEAN CORPUSCULAR VOLUME 96.1 fl (80.0-96.0); MONO # 0.3 10^3/uL (0.0-0.8); MONO % 3.7 % (0.0-5.0); NEUTROPHILS # 6.1 10^3/uL (1.8-7.7); NEUTROPHILS % 83.4 % (36.0-66.0); PLATELET COUNT, AUTOMATED 114 10^3/uL (150-450); RED BLOOD COUNT 3.56 10^6/uL (4.30-6.10); WHITE BLOOD COUNT 7.3 10^3/uL (4.0-10.0)
[2019-01-01 20:39] LABS: ALBUMIN 3.1 GM/DL (3.2-5.2); ALT/SGPT 116 U/L (12-78); BILIRUBIN,TOTAL 0.3 MG/DL (0.2-1.0); BLOOD UREA NITROGEN 16 MG/DL (7-18); CALCIUM LEVEL 8.1 MG/DL (8.5-10.1); CARBON DIOXIDE LEVEL 28 MEQ/L (21-32); CHLORIDE LEVEL 111 MEQ/L (98-107); CREATININE FOR GFR 0.46 MG/DL (0.70-1.30); FERRITIN 330 NG/ML (26-388); GLOMERULAR FILTRATION RATE > 60.0 (>56); GLUCOSE, FASTING 131 MG/DL (70-100); IRON (FE) 83 UG/DL (65-175); POTASSIUM SERUM 3.7 MEQ/L (3.5-5.1); PREALBUMIN 34.4 MG/DL (20.0-40.0); SODIUM LEVEL 146 MEQ/L (136-145); TOTAL IRON BINDING CAPACITY 259 UG/DL (250-450); TOTAL PROTEIN 5.5 GM/DL (6.4-8.2)
[2019-01-01 21:02] LABS: HEMOGLOBIN A1c 5.8 %
== END ==
LOC: M SFHCLERA 14:45
PROVIDERS: ATTEND Family Medicine
DX: R60.0 Localized edema (principal); E88.09 Other disorders of plasma-protein metabolism, not elsewhere classified; D64.9 Anemia, unspecified; K52.9 Noninfective gastroenteritis and colitis, unspecified

== ENCOUNTER → 2019-01-04 | Outpatient (REF) | payer OTHER | LOC: M SFHCLERA 17:01 | PROVIDERS: ATTEND Family Medicine | DX: E87.6 Hypokalemia (principal) ==

== ENCOUNTER → 2019-01-07 | Outpatient (REF) | payer OTHER ==
[~2019-01-07] MED LIST changes: +ACET-897 PO; +ALIN500T2 PO; +AZAT50TA2 PO; +BACITAB PO; +BENA2CRE3 TOP; +CHOL4PW PO; +CVS2500C PO; +CVS27TAB2 PO; +CYAN100050 PO; +DICY20TA11 PO; +DIFI200T PO; +DIPH50CA PO; +ELIQ5TAB PO; +FERR325T16 PO; +FIRV25SO PO; +FIRV50SO PO; +HUMI40IN2 SQ; +HYOS0.374 PO; +IRON27TA2 PO; +LOPE-39 PO; +MAGN64TASA PO; +PANT40TA3 PO; +PENT500C PO; +PEPT262C2 PO; +PEPT262S PO; +PRED10TA2 PO; +PRED5TA PO; +REGL10TA6 PO; +SM A10CA PO; +TUMS500C PO; +VANC125C3 PO; +VANC250C3 PO; +VITA500045 PO; +VITA50005 PO
== END ==
LOC: M SFHCLERA 11:52
PROVIDERS: ATTEND Family Medicine
DX: E87.6 Hypokalemia (principal)

== ENCOUNTER → 2019-01-11 | Outpatient (CLI) | payer OTHER | LOC: M LRY 11:03 | PROVIDERS: ATTEND Family Medicine | DX: E87.6 Hypokalemia (principal) ==

== ENCOUNTER 2019-01-14 08:30 | Outpatient (RCR) | payer OTHER | END 2019-01-16 | LOC: M PT 08:30 | PROVIDERS: ATTEND Family Medicine | DX: I89.0 Lymphedema, not elsewhere classified (principal); R60.0 Localized edema ==

== ENCOUNTER → 2019-01-14 | Outpatient (REF) | payer OTHER ==
[~2019-01-14] MED LIST changes: -ACET-897 PO; -ALIN500T2 PO; -AZAT50TA2 PO; -BACITAB PO; -BENA2CRE3 TOP; -CHOL4PW PO; -CVS2500C PO; -CVS27TAB2 PO; -CYAN100050 PO; -DICY20TA11 PO; -DIFI200T PO; -DIPH50CA PO; -ELIQ5TAB PO; -FERR325T16 PO; -FIRV25SO PO; -FIRV50SO PO; -HUMI40IN2 SQ; -HYOS0.374 PO; -IRON27TA2 PO; -LOPE-39 PO; -MAGN64TASA PO; -PANT40TA3 PO; -PENT500C PO; -PEPT262C2 PO; -PEPT262S PO; -PRED10TA2 PO; -PRED5TA PO; -REGL10TA6 PO; -SM A10CA PO; -TUMS500C PO; -VANC125C3 PO; -VANC250C3 PO; -VITA500045 PO; -VITA50005 PO
[2019-01-14 16:43] LABS: BLOOD UREA NITROGEN 17 MG/DL (7-18); CALCIUM LEVEL 8.3 MG/DL (8.5-10.1); CARBON DIOXIDE LEVEL 27 MEQ/L (21-32); CHLORIDE LEVEL 110 MEQ/L (98-107); CREATININE FOR GFR 0.47 MG/DL (0.70-1.30); GLOMERULAR FILTRATION RATE > 60.0 (>56); GLUCOSE, FASTING 107 MG/DL (70-100); POTASSIUM SERUM 3.7 MEQ/L (3.5-5.1); SODIUM LEVEL 144 MEQ/L (136-145)
== END ==
LOC: M SFHCLERA 11:03
PROVIDERS: ATTEND Family Medicine
DX: R60.0 Localized edema (principal)

== ENCOUNTER → 2019-01-20 | Outpatient (REF) | payer OTHER ==
[2019-01-20 11:36] LABS: BASO # 0.1 10^3/uL (0.0-0.2); BASO % 0.5 % (0.0-1.0); EOS # 0.1 10^3/uL (0.0-0.5); EOS % 0.6 % (0.0-3.0); HEMATOCRIT 38.1 % (42.0-52.0); HEMOGLOBIN 12.2 g/dl (13.5-17.5); LYMPH # 1.2 10^3/uL (1.5-5.0); LYMPH % 12.8 % (24.0-44.0); MEAN CORPUSCULAR HEMOGLOBIN 32.5 pg (27.0-33.0); MEAN CORPUSCULAR VOLUME 101.6 fl (80.0-96.0); MONO # 0.8 10^3/uL (0.0-0.8); MONO % 8.1 % (0.0-5.0); NEUTROPHILS % 75.1 % (36.0-66.0); PLATELET COUNT, AUTOMATED 159 10^3/uL (150-450); RED BLOOD COUNT 3.75 10^6/uL (4.30-6.10); WHITE BLOOD COUNT 9.4 10^3/uL (4.0-10.0)
[2019-01-20 12:00] LABS: ALBUMIN 3.8 GM/DL (3.2-5.2); ALT/SGPT 60 U/L (12-78); BILIRUBIN,TOTAL 0.6 MG/DL (0.2-1.0); BLOOD UREA NITROGEN 18 MG/DL (7-18); CALCIUM LEVEL 8.6 MG/DL (8.5-10.1); CARBON DIOXIDE LEVEL 24 MEQ/L (21-32); CHLORIDE LEVEL 112 MEQ/L (98-107); CREATININE FOR GFR 0.49 MG/DL (0.70-1.30); GLOMERULAR FILTRATION RATE > 60.0 (>56); GLUCOSE, FASTING 89 MG/DL (70-100); POTASSIUM SERUM 4.2 MEQ/L (3.5-5.1); SODIUM LEVEL 143 MEQ/L (136-145); TOTAL PROTEIN 6.1 GM/DL (6.4-8.2)
== END ==
LOC: M SFHCLERA 10:14
PROVIDERS: ATTEND Family Medicine
DX: E87.6 Hypokalemia (principal)

== ENCOUNTER 2019-01-22 10:15 | Outpatient (CLI) | payer OTHER ==
[~2019-01-22] VITALS: Ht 190.5 cm; Wt 94.5 kg
[2019-01-22 10:20] VITALS: BP 133/77
[2019-01-22 10:40] VITALS: BP 121/69
[2019-01-22] MEDS ORDERED: VEDOLIZUMAB 300 MG in NS 250 ML IV ONE (11:00)
== END 2019-01-22 11:45 ==
LOC: M INFU 10:15
PROVIDERS: ATTEND Internal Medicine Gastroenterology
DX: K50.90 Crohn's disease, unspecified, without complications (principal); Z88.5 Allergy status to narcotic agent; Z88.8 Allergy status to other drugs, medicaments and biological substances
CPT/HCPCS: 96365; J3380

== ENCOUNTER 2019-02-01 08:11 | Outpatient (RCR) | payer OTHER ==
[2019-02-04] MEDS ORDERED: PRED5TA PO (11:20)
[2019-02-04] MEDS ORDERED: PANT40TA3 PO (11:20)
[2019-02-04] MEDS ORDERED: REGL10TA6 PO (15:47)
[2019-02-07] MEDS ORDERED: DIFI200T PO (00:12)
[2019-02-07] MEDS ORDERED: ELIQ5TAB PO (05:34)
[2019-02-07] MEDS ORDERED: PENT500C PO (05:34)
[2019-02-07] MEDS ORDERED: PRED20TA PO (05:34)
[2019-02-11] MEDS ORDERED: VANC125C3 PO (18:43)
[2019-02-11] MEDS ORDERED: DICY20TA11 PO ×2 (18:43→23:47)
[2019-02-11] MEDS ORDERED: FIRV25SO PO (23:47)
[2019-02-11] MEDS ORDERED: ELIQ5TAB PO (23:47)
[2019-02-11] MEDS ORDERED: BACITAB PO (23:47)
[2019-02-11] MEDS ORDERED: PRED10TA2 PO (23:47)
[2019-02-11] MEDS ORDERED: TUMS500C PO (23:47)
== END 2019-02-15 ==
LOC: M PT 08:11
PROVIDERS: ATTEND Family Medicine
DX: R60.0 Localized edema (principal)

== ENCOUNTER → 2019-02-02 | Outpatient (REF) | payer OTHER ==
[~2019-02-02] MED LIST changes: +BACITAB PO; +DICY20TA11 PO; +DIFI200T PO; +ELIQ5TAB PO; +FIRV25SO PO; +PANT40TA3 PO; +PENT500C PO; +PRED10TA2 PO; +PRED5TA PO; +REGL10TA6 PO; +TUMS500C PO; +VANC125C3 PO
== END ==
LOC: M SFHCLERA 17:26
PROVIDERS: ATTEND Family Medicine
DX: R10.32 Left lower quadrant pain (principal)

== ENCOUNTER 2019-02-04 10:12 | Emergency (ER) | payer OTHER ==
[~2019-02-04] VITALS: Ht 190.5 cm; Wt 99.1 kg
[~2019-02-04 10:12] MED LIST changes: -BACITAB PO; -DICY20TA11 PO; -DIFI200T PO; -ELIQ5TAB PO; -FIRV25SO PO; -PANT40TA3 PO; -PENT500C PO; -PRED10TA2 PO; -PRED5TA PO; -REGL10TA6 PO; -TUMS500C PO; -VANC125C3 PO
[2019-02-04] MEDS ORDERED: NS 1,000 ML IV ONE ×2 (10:30→13:30)
[2019-02-04] MEDS ORDERED: METOCLOPRAMIDE INJ 10MG/2ML VIAL (J2765) IV ONE (10:30)
[2019-02-04] MEDS ORDERED: PRED5TA PO (11:20)
[2019-02-04] MEDS ORDERED: PANT40TA3 PO (11:20)
[2019-02-04 12:03] LABS: BASO % 0.3 % (0.0-1.0); EOS # 0.1 10^3/uL (0.0-0.5); EOS % 0.8 % (0.0-3.0); HEMATOCRIT 38.9 % (42.0-52.0); HEMOGLOBIN 12.5 g/dl (13.5-17.5); LYMPH % 14.7 % (24.0-44.0); MEAN CORPUSCULAR HEMOGLOBIN 31.5 pg (27.0-33.0); MEAN CORPUSCULAR HGB CONC 32.1 g/dl (32.0-36.5); MONO # 0.8 10^3/uL (0.0-0.8); MONO % 12.2 % (0.0-5.0); NEUTROPHILS # 4.6 10^3/uL (1.5-8.5); NEUTROPHILS % 70.9 % (36.0-66.0); PLATELET COUNT, AUTOMATED 193 10^3/uL (150-450); RED BLOOD COUNT 3.97 10^6/uL (4.30-6.10); WHITE BLOOD COUNT 6.5 10^3/uL (4.0-10.0)
[2019-02-04 13:36] LABS: ALBUMIN 3.1 GM/DL (3.2-5.2); BILIRUBIN,DIRECT 0.2 MG/DL (0.0-0.2); BILIRUBIN,TOTAL 0.6 MG/DL (0.2-1.0); TOTAL PROTEIN 5.8 GM/DL (6.4-8.2)
[2019-02-04] MEDS ORDERED: FIDAXOMICIN 200 MG TAB (DIFICID) PO STA (14:37)
[2019-02-04 15:41] VITALS: BP 125/80
[2019-02-04] MEDS ORDERED: REGL10TA6 PO (15:47)
== END 2019-02-04 16:03 | disposition home or self-care (01) ==
LOC: M ED 10:12 → EDBD 10:12 → EEVIPCON 10:12 → M ED 16:03
DX: A04.72 Enterocolitis due to Clostridium difficile, not specified as recurrent (principal); J45.909 Unspecified asthma, uncomplicated; L40.50 Arthropathic psoriasis, unspecified; K50.90 Crohn's disease, unspecified, without complications; Z79.899 Other long term (current) drug therapy; Z79.01 Long term (current) use of anticoagulants; Z88.5 Allergy status to narcotic agent; Z88.8 Allergy status to other drugs, medicaments and biological substances; Z87.891 Personal history of nicotine dependence
CPT/HCPCS: 36415; 80047; 80076; 83605; 83690; 85025; 87040; 96361; 96374; 99284; J2765

== ENCOUNTER 2019-02-07 00:09 | Emergency (ER) | payer OTHER ==
[~2019-02-07] VITALS: Ht 190.5 cm; Wt 218.0 kg
[~2019-02-07 00:09] MED LIST changes: +PANT40TA3 PO; +PRED5TA PO; +REGL10TA6 PO
[2019-02-07] MEDS ORDERED: DIFI200T PO (00:12)
[2019-02-07] MEDS ORDERED: MORPHINE 4 MG/ML 1ML VIAL/SYRINGE (J2270) IV PRN (01:00)
[2019-02-07] MEDS ORDERED: NS 1,000 ML IV ONE (01:00)
[2019-02-07] MEDS ORDERED: ISOVUE-370 76% 100ML VIAL (Q9967) As Ordered ONE (01:40)
[2019-02-07 01:51] LABS: BASO % 0.4 % (0.0-1.0); EOS % 0.3 % (0.0-3.0); HEMATOCRIT 41.9 % (42.0-52.0); HEMOGLOBIN 13.7 g/dl (13.5-17.5); LYMPH # 1.2 10^3/uL (1.5-5.0); LYMPH % 17.6 % (24.0-44.0); MEAN CORPUSCULAR HEMOGLOBIN 31.4 pg (27.0-33.0); MEAN CORPUSCULAR HGB CONC 32.7 g/dl (32.0-36.5); MEAN CORPUSCULAR VOLUME 96.1 fl (80.0-96.0); MONO # 0.7 10^3/uL (0.0-0.8); MONO % 10.9 % (0.0-5.0); NEUTROPHILS # 4.7 10^3/uL (1.5-8.5); NEUTROPHILS % 69.3 % (36.0-66.0); PLATELET COUNT, AUTOMATED 206 10^3/uL (150-450); RED BLOOD COUNT 4.36 10^6/uL (4.30-6.10); WHITE BLOOD COUNT 6.8 10^3/uL (4.0-10.0)
[2019-02-07 02:14] LABS: ALBUMIN 2.6 GM/DL (3.2-5.2); BILIRUBIN,DIRECT 0.2 MG/DL (0.0-0.2); BILIRUBIN,TOTAL 0.5 MG/DL (0.2-1.0); TOTAL PROTEIN 5.1 GM/DL (6.4-8.2)
--- NOTE | 2019-02-07 04:18 | REPVR ---
PROCEDURE INFORMATION: Exam: CT Abdomen and Pelvis With Contrast Exam date and time: 02/07/2019 3:31 AM Clinical history: 48 years old, male; Abdominal pain; Generalized; Additional info: Generalized abd pain, HX of crohns and cdiff TECHNIQUE: Imaging protocol: Computed tomography of the abdomen and pelvis with intravenous contrast. Radiation optimization: All CT scans at this facility use at least one of these dose optimization techniques: automated exposure control; mA and/or kV adjustment per patient size (includes targeted exams where dose is matched to clinical indication); or iterative reconstruction. Contrast material: ISOVUE 370; Contrast volume: 100 ml; Contrast route: IV; COMPARISON: CT ABD PELVIS WITH CONTRAST 12/03/2018 4:23 PM FINDINGS: Lungs: Posterior right lower lobe pulmonary embolism which is similar to the prior study. Mild bibasilar fibro-atelectatic change, left greater than right which is similar to the prior study. Liver: The liver attenuation is 59 Hounsfield units and the spleen is 94 Hounsfield units. Gallbladder and bile ducts: Normal. No calcified stones. No ductal dilation. Pancreas: Mild pancreatic atrophy for age. Spleen: Normal. No splenomegaly. Adrenals: Normal. No mass. Kidneys and ureters: Normal. No hydronephrosis. Stomach and bowel: Borderline distention of the stomach with fluid and gas. Fluid throughout much of the colon to the level of the sigmoid suggesting diarrhea. Mild wall thickening of the distal sigmoid and rectum. Wall thickening with mucosal enhancement involving multiple segments of small bowel, particularly ileum in the pelvis where there is induration of supplying mesentery with slight perienteric induration Appendix: A normal appendix is seen. Intraperitoneal space: Unremarkable. No free air. No significant fluid collection. Vasculature: Borderline periaortic and aortocaval nodes at the level of the celiac/SMA which is similar. Lymph nodes: Borderline central mesenteric nodes. Bladder: Unremarkable as visualized. Reproductive: Unremarkable as visualized. Bones/joints: Unremarkable. No acute fracture. Soft tissues: Unremarkable. IMPRESSION: 1. Decreased colonic distention since 12/03/2018. There is also decreased colonic fluid although some colonic fluid is noted to the sigmoid suggesting diarrhea. There is new wall thickening of the distal sigmoid and rectum consistent with distal colitis or proctitis. 2. Decreased small bowel distention and air-fluid levels since the prior study. There is new small bowel wall thickening with mucosal enhancement and induration of supplying mesentery, particularly ileal segments in the pelvis consistent with enteritis and may reflect Crohn's disease. 3. Posterior right lower lobe pulmonary embolism which is similar to the prior study. 4. Mild bibasilar fibro-atelectatic change, left greater than right which is similar. 5. Mild fatty infiltration of the liver. 6. Mild pancreatic atrophy for age. 7. Borderline central mesenteric nodes which are increased and may be reactive. Electronically signed by: Brooks Deal On 02/07/2019 04:17:33 AM
[2019-02-07] MEDS ORDERED: APIXABAN 5 MG TAB (ELIQUIS) PO ONE (05:30)
[2019-02-07] MEDS ORDERED: OXYCODONE/APAP 5MG/325MG(BULK FOR ED) 1 TABLET PO ONE (05:30)
[2019-02-07] MEDS ORDERED: predniSONE 20 MG TAB PO ONE (05:30)
[2019-02-07] MEDS ORDERED: ELIQ5TAB PO (05:34)
[2019-02-07] MEDS ORDERED: PRED20TA PO (05:34)
[2019-02-07] MEDS ORDERED: PENT500C PO (05:34)
[2019-02-07] MEDS ORDERED: MESALAMINE 250 MG CR CAP PO ONE (05:37)
[2019-02-07 06:25] VITALS: BP 135/97
--- NOTE | 2019-02-08 19:57 | ED PDOC ---
Post-Departure Follow-Up dr adler faxed formal report of ct abd/p for fu Mart Navarrete MD Feb 08, 2019 19:57
== END 2019-02-07 06:33 | disposition home or self-care (01) ==
LOC: M ED 00:09
DX: K50.90 Crohn's disease, unspecified, without complications (principal); I27.82 Chronic pulmonary embolism; Z86.19 Personal history of other infectious and parasitic diseases; Z88.5 Allergy status to narcotic agent; Z88.8 Allergy status to other drugs, medicaments and biological substances; Z79.899 Other long term (current) drug therapy; Z79.01 Long term (current) use of anticoagulants
CPT/HCPCS: 36415; 74177; 80047; 80076; 83605; 83690; 85025; 87040; 93041; 96361; 96374; 99285; J2270; Q9967

== ENCOUNTER → 2019-02-10 | Outpatient (CLI) | payer OTHER ==
[~2019-02-10] MED LIST changes: +BACITAB PO; +DICY20TA11 PO; +DIFI200T PO; +ELIQ5TAB PO; +FIRV25SO PO; +PENT500C PO; +PRED10TA2 PO; +TUMS500C PO; +VANC125C3 PO
--- NOTE | 2019-02-10 15:41 | REP ---
Bilateral lower extremity Duplex Doppler venous ultrasound: Real time compression and duplex Doppler interrogation of the bilateral lower extremity deep venous system is performed. Bilaterally, the common femoral, superficial femoral and popliteal veins are fully compressible with transducer pressure and demonstrate normal spontaneous and phasic flow, without evidence of deep venous thrombosis. Impression: No evidence of deep venous thrombosis of the bilateral lower extremity femoral popliteal venous system. Electronically Signed by Brandon De La Vega MD 02/10/2019 03:32 P
== END ==
LOC: M RAD 13:18
PROVIDERS: ATTEND Family Medicine
DX: I27.82 Chronic pulmonary embolism (principal)

== ENCOUNTER 2019-02-11 18:11 | Inpatient (IN) | payer OTHER ==
[~2019-02-11] VITALS: Ht 190.5 cm; Wt 94.0 kg
[~2019-02-11 18:11] MED LIST changes: -BACITAB PO; -DICY20TA11 PO; -FIRV25SO PO; -PRED10TA2 PO; -TUMS500C PO; -VANC125C3 PO
[2019-02-11] MEDS ORDERED: VANC125C3 PO (18:43)
[2019-02-11] MEDS ORDERED: DICY20TA11 PO ×2 (18:43→23:47)
[2019-02-11] MEDS ORDERED: MAALOX 30 ML SUSP *UDC PO ONE (20:45)
[2019-02-11] MEDS ORDERED: NS 1,000 ML IV ONE (20:45)
[2019-02-11 21:24] LABS: HEMATOCRIT 49.8 % (42.0-52.0); MEAN CORPUSCULAR HEMOGLOBIN 31.5 pg (27.0-33.0); MEAN CORPUSCULAR HGB CONC 34.1 g/dl (32.0-36.5); MEAN CORPUSCULAR VOLUME 92.2 fl (80.0-96.0)
[2019-02-11 22:07] LABS: ALBUMIN 2.8 GM/DL (3.2-5.2); ALT/SGPT 24 U/L (12-78); BILIRUBIN,DIRECT < 0.1 MG/DL (0.0-0.2); BILIRUBIN,TOTAL 0.9 MG/DL (0.2-1.0); BLOOD UREA NITROGEN < 1 MG/DL (7-18); CARBON DIOXIDE LEVEL < 1.0 MEQ/L (21-32); CHLORIDE LEVEL 105 MEQ/L (98-107); CREATININE FOR GFR 1.14 MG/DL (0.70-1.30); GLOMERULAR FILTRATION RATE > 60.0 (>56); GLUCOSE, FASTING 71 MG/DL (70-100); POTASSIUM SERUM 3.7 MEQ/L (3.5-5.1); SODIUM LEVEL 132 MEQ/L (136-145); TOTAL PROTEIN 5.8 GM/DL (6.4-8.2)
[2019-02-11 22:12] LABS: LYMPHOCYTES 10 % (16-44); MONOCYTES 9 % (0-5); NEUTROPHILS 58 % (28-66); PLATELET CLUMPS LARGE AMT
[2019-02-11 22:14] LABS: PLATELET ESTIMATE NORMAL (NORMAL)
--- NOTE | 2019-02-11 23:31 | HPEPDOC ---
[facility] Medical History & Physical Date of Admission Feb 11, 2019 Date of Service: Feb 11, 2019 Attending Physician: JAYRO IBANEZ MD History and Physical CHIEF COMPLAINT: Dehydration, C. difficile, fatigue HISTORY OF PRESENT ILLNESS: Patient is a 48-year-old male with a past medical history of idiopathic IBD and prolonged hospital stay, currently immunosuppressed with prednisone, budesonide and Enty [place], who presents to the hospital today for increasing weakness and fatigue. Patient was recently seen on Friday department on 02/07/19 for increasing abdominal cramping secondary to C. difficile infection diagnosed in 02/02/19. During patient's last regular visit, vitals were normal. WBC count of 6.8 with mild left shift., Low protein at 5.8, low albumin at 2.6, lipase 29. A repeat CT of the abdomen and pelvis was performed and evidence of a chronic pulmonary embolism was discovered. Patient was started on Eliquis. Also found on patient's imaging study, decreased colonic distention compared to previous studies, mild fatty liver infiltration and an area of nonspecific colitis. Upon presentation to the emergency department, patient reports 2 day history of increasing watery diarrhea. History of increasing watery stool since diagnosis of recent C. difficile on 02/02/19. He states that he has lost approximately 2 L of fluid over the previous 2 days and is reporting a 14 lb weight loss over the last two weeks. Tachycardic on intake vitals. CBC demonstrated a WBC of 20. Chemistries significant for anion gap of 26 and sodium of 132. Hospitalist team was contacted for admission and further management of patient's dehydration and C. difficile. PAST MEDICAL HISTORY: Crohn's disease Psoriatic arthritis Staphylococcus aureus pneumonia with cavitary lesions, follows with Dr. Auguste Asthma C. 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 Father does have a history of pulmonary embolism secondary to phlebitis after being kicked by a cow. Mother: Alive, CHF, hypertension, [place] Children: Alive, healthy Patient also reports a nephew that was also diagnosed with pulmonary emboli following a surgery. ALLERGIES: Codeine Epinephrine REVIEW OF SYSTEMS: CONSTITUTIONAL: Patient reports increasing fatigue over the last 2 weeks secondary to increased diarrhea and dehydration. Reports decreased appetite and 14 lbs weight loss. Patient denies any fevers, chills, night sweats. HEENT: Patient denies any headaches, changes in vision, changes in hearing incl uding tinnitus, sore sinus dry throat, sinus pain or pressure, rhinorrhea or nasal congestion CARDIOVASCULAR: Patient denies any chest pain, palpitations, inappropriate tachycardia RESPIRATORY: Patient does report some exertional dyspnea of 2 week duration. He denies any shortness of breath, recent wheezing, cough. Patient denies any hemoptysis. Patient has recently been referred to pulmonology by his PCP for follow-up of cavitary lesions. GASTROINTESTINAL: Patient reports chronic abdominal cramping, worsened over the last week. Increasing frequency of diarrhea. Patient reports approximately 1 L of fluid loss over the last 2 days. GENITOURINARY: Patient states he has not been urinating nearly as often as usual. When he does urinate, patient's urine is quite dark. He denies any dysuria, urgency or hesitancy SKIN: Patient denies any new or changing skin lesions. No new rashes, no easy bruising. MUSCULOSKELETAL: Patient denies any muscle/joint aches or pains. NEUROLOGICAL: Patient denies any changes in sensorium. Denies any changes in memory function, denies any focal neurologic deficits, no dizziness, vertigo, numbness or tingling in his extremities PSYCHIATRIC: Patient denies any depressive/anxious symptoms ENDOCRINE: Patient denies any polyuria or polyphagia polydipsia HEMATOLOGIC/LYMPHATIC: Patient denies any recent easy bruising. Patient is a history of lower extremity swelling and edema for which he follows with the lymphedema clinic. HOME MEDICATIONS: Please see below. Patient recently started vancomycin on 02/10/19 for his gastrointestinal s pecialist. Patient began Eliquis on 02/07/[address] evidence of pulmonary embolism found during his emergency department visit PHYSICAL EXAMINATION: [INCOMPLETE} VITAL SIGNS: Temperature 96.9 F, pulse 96, respiratory rate 16, blood pressure 141/92 (108), pulse oximetry 98% on room air. GENERAL APPEARANCE: Patient was interviewed and examined in the emergency department. Patient was found to be sitting upright in bed comfortable, conversant no acute distress. Patient's is at bedside. He was alert and oriented, familiar with his medical history and able to actively participate in his care. HEENT: Normocephalic, atraumatic, PERRLA, EOMI, sclera nonicteric, CARDIOVASCULAR: Regular rate and rhythm, normal S1 and S2, no murmurs appreciated LUNGS: Clear to auscultation throughout without any wheezes rales or rhonchi ABDOMEN: Diffuse tenderness in the lower quadrants bilaterally, otherwise soft, nondistended, no guarding. Bowel sounds present throughout. MUSCULOSKELETAL: Patient is able to move all extremities equally EXTREMITIES: No calf tenderness bilaterally. Trace LE edema b/l. NEUROLOGICAL: Muscle strength and CN grossly intact. Alert and oriented x3. Normal sensorium. PSYCHIATRIC: Mood and affect are appropriate given current medical condition. LABORATORY DATA: See below. IMAGING: No imaging studies performed to date on this admission Vascular ultrasound (on 02/10/19): No evidence of deep venous on process of the bilateral lower extremity femoral popliteal venous system. Abdomen/pelvis CT (02/07/19): Decreased colonic distention since 12/03/18. Also decreased colonic fluid although some chronic fluid is noted in the sigmoid suggesting diarrhea. Thickening of the distal sigmoid and rectum consistent with colitis. Decreased bowel distention and air-fluid levels since prior study. This new small bowel wall thickening with mucosal enhancement and induration spine the mesentery, particularly ileal segments of the pelvis consistent with enteritis and may reflect Crohn's disease. Posterior right lower pulmonary emboli similar to prior study. Mild bibasilar fibrotic atelectatic change on the right greater than the left. Mild fatty infiltration of liver. Mild pancreatic atrophy for age. Borderline central mesenteric management may be reactive. MICROBIOLOGY: Please see below. PLAN: Sepsis secondary to Severe C. Difficile -Patient meets both SIRS and Sepsis criteria. SIRS: given tachycardia and leukocytosis. Sepsis: C.Diff as source of infection. No lactic acidosis or SBP < 90 mmHg. -Continue oral antibiotic therapy and IVF hydration as discussed below. Blood cultures per sepsis bundle. -PCU admission with contact precautions. Recurrent C. Difficile -Recurrent C. Difficile confirmed via PCR on 02/02. Patient meets criteria for severe C. Difficile given elevated WBC. -Patient currently follows with Dr. Huber. Plan to consult GI for further management recommendations, as their input is greatly appreciated. -Recently started on Vancomycin PO [address] Huber for recurrent, severe C.Difficile. Continue current therapy while in the hospital. -Complications include Toxic megacolon which is unlikely at this time, given patient's lack of acute abdomen on physical examination. Should this change, consider KUB. -NEW2 score of 1 indicating low-risk, requiring vitals monitoring every 4-6 hours. -ATLAS score to predict response to therapy in C. diff: 08/26 indicating an 81.1% cure rate with 4.2% mortality. Anion Gap Metabolic Acidosis -Anion gap of 26. -Patient reports decreased appetite and weight loss of 14 lbs over last two weeks. Consider malnutrition and ketoacidosis as likely cause, in addition to severe diarrhea. -Patient requires >3 kcals daily per outpatient spring internship recommendations. Full Diet orders. -Encourage enteral feeding. Dehydration -Continue IV hydration with NS at 150 ml/hr -Monitor hydration status with Q4 vitals and BMP in am Tachycardia -Upon presentation to the emergency department, patient's heart rate was 117. This is likely secondary to patient's dehydration status. -Continue to monitor for improvement with rehydration Crohn's Disease -Continue dicyclomine 20 mg by mouth 4 times a day Chronic Pulmonary Embolism -Continue home dose of Eliquis, 10 mg BID for the next two days, followed by 5 mg BID thereafter Asthma -Albuterol inhalers PRN Deconditioning -PT consult to prevent deconditioning. DVT Prophylaxis: TEDs and Sequentials CODE STATUS: Full Code Vital Signs Vital Signs Date Time Temp Pulse Resp B/P (MAP) Pulse Ox O2 Delivery O2 Flow Rate FiO2 02/11/19 23:00 96 141/92 (108) 98 02/11/19 20:00 16 Room Air 02/11/19 18:12 96.9 Laboratory Data Labs 24H Laboratory Tests 2 02/11/19 21:17: Immature Granulocyte % (Auto) , Nucleated Red Blood Cells % (auto) 0.0, Neutrophils 58, Band Neutrophils 23H, Lymphocytes (Manual) 10L, Monocytes (Manual) 9H, Platelet Estimate NORMAL, Clumped Platelets LARGE AMT, Red Blood Cell Morphology NORMAL, Anion Gap 26H, Glomerular Filtration Rate > 60.0, Calcium Level 8.0L, Aspartate Amino Transf (AST/SGOT) 14, Alanine Aminotr ansferase (ALT/SGPT) 24, Alkaline Phosphatase 102, Total Bilirubin 0.9, Direct Bilirubin < 0.1, Total Protein 5.8L, Albumin 2.8L, Albumin/Globulin Ratio 0.93L 02/11/19 22:43: POC pH (Misc Panel) 7.251L, POC Base Excess (Misc Panel) -19.0L, POC Saturated Percent O2 (Misc) 97, POC pO2 (Misc Panel) 105.0, POC pCO2 (Misc Panel) 17.9*L, POC HCO3 (Misc Panel) 7.9L, POC Total CO2 (Misc Panel) 8.0L CBC/BMP Laboratory Tests 02/11/19 21:17 Red Blood Count 5.40, Mean Corpuscular Volume 92.2, Mean Corpuscular Hemoglobin 31.5, Mean Corpuscular Hemoglobin Concent 34.1, Red Cell Distribution Width 14.1 Home Medications Scheduled Apixaban (Eliquis) 5 Mg Tablet, 5 MG PO ASDIRECTED ISSUED ON 02/07/19: 10MG BID FOR 7 DAYS, THEN 5MG BID Dicyclomine HCl (Dicyclomine HCl) 20 Mg Tablet, 20 MG PO Q6H L.acidoph/L.bulg/B.bif/S.therm (Bacid Caplet) 1 Each Tablet, 1 TAB PO DAILY Multivitamin (Multivitamins) 1 Each Tablet, 1 TAB PO DAILY Prednisone (Prednisone) 10 Mg Tablet, 10 MG PO DAILY FOR 10 DAYS: STARTED 02/10/19 Vancomycin HCl (Firvanq) 25 Mg/1 Ml Soln.recon, 5 ML PO QID Vedolizumab (Entyvio) 300 Mg Vial, 300 MG IV ASDIRECTED EVERY 8 WEEKS Scheduled PRN Acetaminophen (Acetaminophen) 325 Mg Tablet, 650 MG PO Q6H PRN for PAIN Albuterol Sulfate (Proair Hfa) 8.5 Gm Hfa.aer.ad, 2 PUFF INH Q4H PRN for SHORTNESS OF BREATH Calcium Carbonate (Tums) 200 Mg Tab.chew, 1,500 MG PO QID PRN for INDIGESTION Allergies Coded Allergies: epinephrine (Verified Adverse Reaction, Intermediate, HIGH DOSE EPI - SEVERE SVT, 09/08/18) codeine (Verified Adverse Reaction, Mild, hallucinations, 09/08/18) A-FIB/CHADSVASC A-FIB History Current/History of A-Fib/PAF?: No GME ATTESTATION GME ATTESTATION My faculty preceptor for this patient encounter was physically present during the encounter and was fully available. All aspects of the patient interview, examination, medical decision making process, and medical care plan development were reviewed and approved by the faculty preceptor. The faculty preceptor is aware and concurs with the plan as stated in the body of this note and will attest to such by his/her cosignature. ATTENDING NOTE I personally examined the patient at approximately 1050pm and discussed the case with is a 48 yr old M w a PMH of atypical colitis who will be admitted for tx of dehydration & Sepsis 2/2 C.diff. Rest per 's note LATE ENTRY 647AM Per d/w will keep pt NPO for stool transplant today. ANDREY HERNÁNDEZ DO Feb 11, 2019 23:30 JAYRO IBANEZ MD Feb 12, 2019 02:05
[2019-02-11] MEDS ORDERED: PRED10TA2 PO (23:47)
[2019-02-11] MEDS ORDERED: BACITAB PO (23:47)
[2019-02-11] MEDS ORDERED: TUMS500C PO (23:47)
[2019-02-11] MEDS ORDERED: ELIQ5TAB PO (23:47)
[2019-02-11] MEDS ORDERED: FIRV25SO PO (23:47)
[2019-02-12] VITALS (7 sets, daily range): BP systolic 110–146; BP diastolic 66–98
[2019-02-12] MEDS ORDERED: ALBUTEROL 90 MCG/ACT 8GM HFA INHALER INH PRN (00:15)
[2019-02-12] MEDS: VANCOMYCIN ORAL SOL 250MG/5ML ORAL SYRINGE PO SCH ×2 (00:28→06:01)
[2019-02-12] MEDS: DICYCLOMINE 10 MG CAP PO SCH ×5 (00:53→20:47)
[2019-02-12] MEDS: APIXABAN 5 MG TAB (ELIQUIS) PO SCH ×3 (00:54→20:47)
[2019-02-12] MEDS: NS 1,000 ML IV SCH ×4 (03:00→21:30)
[2019-02-12] MEDS: ACETAMINOPHEN TAB 650MG DOSE (2X325MG) PO PRN ×2 (04:05→22:06)
[2019-02-12 04:56] LABS: CLOSTRIDIUM DIFFICILE PCR NEGATIVE (NEGATIVE)
[2019-02-12] MEDS: CALCIUM CARBONATE 500 MG CHEW U/D PO PRN ×2 (06:01→20:47)
[2019-02-12 06:10] LABS: HEMATOCRIT 45.8 % (42.0-52.0); HEMOGLOBIN 15.7 g/dl (13.5-17.5); MEAN CORPUSCULAR HEMOGLOBIN 32.2 pg (27.0-33.0); MEAN CORPUSCULAR HGB CONC 34.3 g/dl (32.0-36.5); PLATELET COUNT, AUTOMATED 385 10^3/uL (150-450); RED BLOOD COUNT 4.87 10^6/uL (4.30-6.10); WHITE BLOOD COUNT 19.5 10^3/uL (4.0-10.0)
[2019-02-12 06:48] LABS: ALBUMIN 2.5 GM/DL (3.2-5.2); ALT/SGPT 24 U/L (12-78); BILIRUBIN,TOTAL 0.7 MG/DL (0.2-1.0); BLOOD UREA NITROGEN 21 MG/DL (7-18); CALCIUM LEVEL 7.7 MG/DL (8.5-10.1); CARBON DIOXIDE LEVEL 10 MEQ/L (21-32); CHLORIDE LEVEL 107 MEQ/L (98-107); CREATININE FOR GFR 0.88 MG/DL (0.70-1.30); GLOMERULAR FILTRATION RATE > 60.0 (>56); GLUCOSE, FASTING 80 MG/DL (70-100); POTASSIUM SERUM 3.7 MEQ/L (3.5-5.1); SODIUM LEVEL 135 MEQ/L (136-145); TOTAL PROTEIN 5.2 GM/DL (6.4-8.2)
[2019-02-12] MEDS: predniSONE 10 MG TAB PO SCH (09:50)
[2019-02-12] MEDS ORDERED: FECAL MICROBIOTA PREPARATION 250 ML BTL (J3590) XX ONE (14:00)
--- NOTE | 2019-02-12 14:05 | IPNPDOC ---
Text Note Date of Service The patient was seen on 02/12/19. NOTE Subjective: Patient is a 48-year-old male with a PMHx of Hx of C. diff (with multiple hospitalizations), Chronic PE (on Eliquis), Asthma, Staph aureus pn eumonia with cavitary lesion (Follows with Dr. Auguste), Crohn's disease (on Prednisone, Budesonide and Entyvio), Psoriatic arthritis. Patient was diagnosis C. difficile colitis on 02/02/2019 and had presented to the emergency room on 02/07/2019 with increasing abdominal discomfort. Patient has attempted to continue with deficit, but has failed therapy as an outpatient. Patient was seen by a internal security manager who had recommended that he go into the ER for further evaluation. Patient was admitted to hospitalist service for further evaluation and treatment. Gastric nephrology was called on consultation. Patient was seen and examined at the bedside. Patient denies any nausea, vomiting or abdominal pain. He reports that currently his abdominal is without pain after starting pain control medications. He denies any discomfort with urination but does report loose watery stools, most recent of which has occurred this morning. He denies chest pain, shortness of breath or palpitations. Objective: Vitals (See below) General: Lying in bed, no acute distress, comfortable, AAOx3 HEENT: NC, AT CVS: RRR, +S1S2 Lungs: Fair air entry b/l, -w/r/r Abdomen: Soft, ND, no significant tenderness is felt. Upon palpation Extremities: - Edema, - Calf tenderness Assessment and plan: Leukocytosis - likely 2/2 Severe C. diff colitis - Patient has failed outpatient antibiotic therapy - Still reports significant watery stools - Physical without any abdominal distention or tenderness - Leukocytosis noted; no lactic acidosis - CT abdomen/pelvis 02/07: 1. Decreased colonic distention since 12/03/2018. There is also decreased colonic fluid although some colonic fluid is noted to the sigmoid suggesting diarrhea. There is new wall thickening of the distal sigmoid and rectum consistent with distal colitis or proctitis. 2. Decreased small bowel distention and air-fluid levels since the prior study. There is new small bowel wall thickening with mucosal enhancement and induration of supplying mesentery, particularly ileal segments in the pelvis consistent with enteritis and may reflect Crohn's disease. 3. Posterior right lower lobe pulmonary embolism which is similar to the prior study. 4. Mild bibasilar fibro-atelectatic change, left greater than right which is similar. 5. Mild fatty infiltration of the liver. 6. Mild pancreatic atrophy for age. 7. Borderline central mesenteric nodes which are increased and may be reactive. - Patient has been following with gastroenterology, Dr. Huber as an outpatient who has been called on consultation on this admission - Continue with the vancomycin po - Patient is scheduled for a stool transplant to be completed High AG acidosis / metabolic alkalosis - likely 2/2 diarrhea, ketoacidosis, - Delta / Delta of >2 - Will continue with IV fluid hydration Chronic PE - Currently, patient does not report any significant respiratory difficulty - c/w Eliquis Asthma - No evidence of exacerbation - c/w inhaled therapy is ordered Staph aureus pneumonia with cavitary lesion - Follows with Dr. Auguste Crohn's disease - c/w Prednisone, Budesonide and Entyvio Psoriatic arthritis DVT prophylaxis - c/w full anticoagulation with Eliquis VS,Fishbone, I+O VS, Fishbone, I+O Laboratory Tests 02/11/19 21:17 Red Blood Count 5.40, Mean Corpuscular Volume 92.2, Mean Corpuscular Hemoglobin 31.5, Mean Corpuscular Hemoglobin Concent 34.1, Red Cell Distribution Width 14.1 02/12/19 05:57 Red Blood Count 4.87, Mean Corpuscular Volume 94.0, Mean Corpuscular Hemoglobin 32.2, Mean Corpuscular Hemoglobin Concent 34.3, Red Cell Distribution Width 13.9, Calcium Level 7.7 L, Aspartate Amino Transf (AST/SGOT) 23, Alanine Aminotransferase (ALT/SGPT) 24, Alkaline Phosphatase 94, Total Bilirubin 0.7, Total Protein 5.2 L, Albumin 2.5 L Vital Signs Date Time Temp Pulse Resp B/P (MAP) Pulse Ox O2 Delivery O2 Flow Rate FiO2 02/12/19 08:00 97.8 87 20 140/89 (106) 100 02/11/19 20:00 Room Air EZEKIEL MARTINEZ MD Feb 12, 2019 14:05
[2019-02-12] MEDS ORDERED: PROPOFOL 200 MG/20 ML VIAL As Ordered ONE (14:57)
[2019-02-12] MEDS ORDERED: LIDOCAINE 2% INJ 100 MG/5 ML SDV (FOR ANES.) As Ordered ONE (14:57)
--- NOTE | 2019-02-12 15:51 | ROOR ---
Patient Name: Sina Garcia Procedure Date: 02/12/2019 3:27 PM Date of : 1970 Age: 48 Room: [facility] Gender: Male Note Status: Finalized Procedure: Colonoscopy Indications: Fecal transplant for treatment of recurrent Clostridium difficile colitis, Crohn's disease of the small bowel and colon Providers: Tian HUBER MD Referring MD: Brandon FERNANDEZ MD Requesting Provider: Medicines: Monitored Anesthesia Care Complications: No immediate complications. Procedure: Pre-Anesthesia Assessment: - The heart rate, respiratory rate, oxygen saturations, blood pressure, adequacy of pulmonary ventilation, and response to care were monitored throughout the procedure. The Colonoscope was introduced through the anus and advanced to the cecum, identified by appendiceal orifice and ileocecal valve. The colonoscopy was performed without difficulty. The patient tolerated the procedure well. The quality of the bowel preparation was suboptimal (Unprepped --for planned CDAD). Findings: The decision was made to proceed with fecal microbiota transplant (bacteriotherapy). Donor stool was supplied by [facility] (purchased frozen stool) as per protocol. Approximately 250 mL of the donor stool was instilled in the cecum. A detailed colonoscopic exam could not be performed upon scope withdrawal secondary to limited visibility from the instilled stool. A diffuse pseudomembrane was found in the sigmoid colon. Impression: - Pseudomembranous enterocolitis. - Fecal Microbiota Transplant (Bacteriotherapy) performed in the cecum. - No specimens collected. Recommendation: - Return patient to hospital [facility] for ongoing care. - Resume regular diet. - Stop/do NOT restart any antibiotics you were on for C difficile colitis. Avoid use of any future antibiotics if at all possible. If need for antibiotic therapy arises in the future, please notify your primary care physician for review/discussion. Tian Huber MD Tian HUBER MD 02/12/2019 3:50:55 PM Electronically signed by Tian HUBER MD Number of Addenda: 0 Note Initiated On: 02/12/2019 3:27 PM Estimated Blood Loss: Estimated blood loss: none.
[2019-02-13] VITALS (8 sets, daily range): BP systolic 118–131; BP diastolic 57–88
[2019-02-13] MEDS: NS 1,000 ML IV SCH (03:16)
[2019-02-13] MEDS: APIXABAN 5 MG TAB (ELIQUIS) PO SCH ×2 (09:12→20:48)
[2019-02-13] MEDS: DICYCLOMINE 10 MG CAP PO SCH ×4 (09:12→20:48)
[2019-02-13] MEDS: predniSONE 10 MG TAB PO SCH (09:12)
--- NOTE | 2019-02-13 10:09 | IPNPDOC ---
Text Note Date of Service The patient was seen on 02/13/19. NOTE Subjective: Patient is a 48-year-old male with a PMHx of Hx of C. diff (with multiple hospitalizations), Chronic PE (on Eliquis), Asthma, Staph aureus pneumonia with cavitary lesion (Follows with Dr. Auguste), Crohn's disease (on Prednisone, Budesonide and Entyvio), Psoriatic arthritis. Patient was diagnosis C. difficile colitis on 02/02/2019 and had presented to the emergency room on 02/07/2019 with increasing abdominal discomfort. Patient has attempted to continue with deficit, but has failed therapy as an outpatient. Patient was seen by a cna pct who had recommended that he go into the ER for further evaluation. Patient was admitted to hospitalist service for further evaluation and treatment. Gastric nephrology was called on consultation. Patient was seen and examined at the bedside. Patient has had 2 bowel movements since 12 AM this morning, both of which were loose. Patient denies any nausea, vomiting or abdominal pain. He denies chest pain, shortness of breath or palpitations. Objective: Vitals (See below) General: Lying in bed, no acute distress, comfortable, AAOx3 HEENT: NC, AT CVS: +S1S2 Lungs: Fair air entry b/l, auscultation is without rhonchi, rales or wheezing Abdomen: Soft, abdomen is without distention or tenderness Extremities: Lower extremities are free of any edema, - Calf tenderness Assessment and plan: Leukocytosis - likely 2/2 Severe C. diff colitis - Patient has failed outpatient antibiotic therapy - s/p stool transplant on 02/12/[address] Huber - Patient has noted a decrease in the frequency of bowel movements - Physical , again, is without any tenderness - Labs remain pending this morning - CT abdomen/pelvis 02/07: 1. Decreased colonic distention since 12/03/2018. There is also decreased colonic fluid although some colonic fluid is noted to the sigmoid suggesting diarrhea. There is new wall thickening of the distal sigmoid and rectum consistent with distal colitis or proctitis. 2. Decreased small bowel distention and air-fluid levels since the prior study. There is new small bowel wall thickening with mucosal enhancement and induration of supplying mesentery, particularly ileal segments in the pelvis consistent with enteritis and may reflect Crohn's disease. 3. Posterior right lower lobe pulmonary embolism which is similar to the prior study. 4. Mild bibasilar fibro-atelectatic change, left greater than right which is similar. 5. Mild fatty infiltration of the liver. 6. Mild pancreatic atrophy for age. 7. Borderline central mesenteric nodes which are increased and may be reactive. - s/p Vancomycin - GI, Dr. Huber on consultation High AG acidosis / metabolic alkalosis - likely 2/2 diarrhea, ketoacidosis, - Delta / Delta of >2 - Labs pending - Will DC IV fluids Chronic PE - Currently, patient does not report any significant respiratory difficulty - c/w Eliquis Asthma - No evidence of exacerbation - c/w inhaled therapy is ordered Staph aureus pneumonia with cavitary lesion - Follows with Dr. Auguste Crohn's disease - c/w Prednisone, Budesonide and Entyvio Psoriatic arthritis DVT prophylaxis - c/w full anticoagulation with Eliquis VS,Fishbone, I+O VS, Fishbone, I+O Vital Signs Date Time Temp Pulse Resp B/P (MAP) Pulse Ox O2 Delivery O2 Flow Rate FiO2 02/13/19 08:00 97.9 82 18 128/78 (95) 98 02/11/19 20:00 Room Air I&O- Last 24 Hours up to 6 AM 02/13/19 06:00 Intake Total 5690 ml Output Total 1125 ml Balance 4565 ml EZEKIEL MARTINEZ MD Feb 13, 2019 10:09
[2019-02-13 11:12] LABS: BASO # 0.1 10^3/uL (0.0-0.2); BASO % 0.7 % (0.0-1.0); EOS # 0.1 10^3/uL (0.0-0.5); EOS % 0.5 % (0.0-3.0); HEMATOCRIT 48.6 % (42.0-52.0); HEMOGLOBIN 16.3 g/dl (13.5-17.5); LYMPH # 1.9 10^3/uL (1.5-5.0); MEAN CORPUSCULAR HEMOGLOBIN 31.8 pg (27.0-33.0); MEAN CORPUSCULAR HGB CONC 33.5 g/dl (32.0-36.5); MEAN CORPUSCULAR VOLUME 94.9 fl (80.0-96.0); MONO # 1.3 10^3/uL (0.0-0.8); MONO % 8.3 % (0.0-5.0); NEUTROPHILS # 11.4 10^3/uL (1.5-8.5); PLATELET COUNT, AUTOMATED 409 10^3/uL (150-450); RED BLOOD COUNT 5.12 10^6/uL (4.30-6.10); WHITE BLOOD COUNT 15.5 10^3/uL (4.0-10.0)
[2019-02-13 11:45] LABS: BLOOD UREA NITROGEN 19 MG/DL (7-18); CALCIUM LEVEL 8.3 MG/DL (8.5-10.1); CARBON DIOXIDE LEVEL 12 MEQ/L (21-32); CHLORIDE LEVEL 106 MEQ/L (98-107); CREATININE FOR GFR 0.85 MG/DL (0.70-1.30); GLOMERULAR FILTRATION RATE > 60.0 (>56); GLUCOSE, FASTING 86 MG/DL (70-100); MAGNESIUM LEVEL 2.3 MG/DL (1.8-2.4); POTASSIUM SERUM 2.9 MEQ/L (3.5-5.1); SODIUM LEVEL 135 MEQ/L (136-145)
[2019-02-13] MEDS ORDERED: POTASSIUM CHLORIDE 10 MEQ SR TABLET PO ONE ×2 (12:00→16:00)
[2019-02-13] MEDS: CALCIUM CARBONATE 500 MG CHEW U/D PO PRN (12:05)
[2019-02-13] MEDS: ACETAMINOPHEN TAB 650MG DOSE (2X325MG) PO PRN ×2 (14:38→19:29)
[2019-02-13] MEDS ORDERED: NS 500 ML IV ONE (16:30)
--- NOTE | 2019-02-13 19:38 | CR.PDOC ---
General Date of Consultation: Feb 13, 2019 Consultation REASON FOR CONSULTATION/CHIEF COMPLAINT: Need for IV access HISTORY OF PRESENT ILLNESS: Mr Garcia is a very pleasant 48yo gentleman with severe diarrhea from c. diff and need for IV access due to severe dehydration making peripheral access too challenging- over 10 attempts for PIV were made by very experienced nurses prior to my consultation. We discussed the risks, benefits and alternatives and informed consent was obtained. ALLERGIES: Please see below. HOME MEDICATIONS: Please see below. PAST MEDICAL HISTORY: Crohns, psoriatic arthritis, asthma, c diff, pneumonia REVIEW OF SYSTEMS: CONSTITUTIONAL: Patient reports increasing fatigue over the last 2 weeks secondary to increased diarrhea and dehydration. Reports decreased appetite and 14 lbs weight loss. Patient denies any fevers, chills, night sweats. HEENT: Patient denies any headaches, changes in vision, changes in hearing including tinnitus, sore sinus dry throat, sinus pain or pressure, rhinorrhea or nasal congestion CARDIOVASCULAR: Patient denies any chest pain, palpitations, inappropriate tachycardia RESPIRATORY: Patient does report some exertional dyspnea of 2 week duration. He denies any shortness of breath, recent wheezing, cough. Patient denies any hemoptysis. Patient has recently been referred to pulmonology by his PCP for follow-up of cavitary lesions. GASTROINTESTINAL: Patient reports chronic abdominal cramping, worsened over the last week. Increasing frequency of diarrhea. Patient reports approximately 1 L of fluid loss over the last 2 days. GENITOURINARY: Patient states he has not been urinating nearly as often as usual. When he does urinate, patient's urine is quite dark. He denies any dysuria, urgency or hesitancy SKIN: Patient denies any new or changing skin lesions. No new rashes, no easy bruising. MUSCULOSKELETAL: Patient denies any muscle/joint aches or pains. NEUROLOGICAL: Patient denies any changes in sensorium. Denies any changes in memory function, denies any focal neurologic deficits, no dizziness, vertigo, numbness or tingling in his extremities PSYCHIATRIC: Patient denies any depressive/anxious symptoms ENDOCRINE: Patient denies any polyuria or polyphagia polydipsia HEMATOLOGIC/LYMPHATIC: Patient denies any recent easy bruising. Patient is a history of lower extremity swelling and edema for which he follows with the lymphedema clinic. HOME MEDICATIONS: Please see below. Patient recently started vancomycin on 02/10/19 for his gastrointestinal specialist. Patient began Eliquis on 02/07/[address] evidence of pulmonary embolism found during his emergency department visit PHYSICAL EXAMINATION: [INCOMPLETE} VITAL SIGNS: Temperature 96.9 F, pulse 96, respiratory rate 16, blood pressure 141/92 (108), pulse oximetry 98% on room air. GENERAL APPEARANCE: Patient was interviewed and examined in the emergency department. Patient was found to be sitting upright in bed comfortable, conve rsant no acute distress. Patient's is at bedside. He was alert and oriented, familiar with his medical history and able to actively participate in his care. HEENT: Normocephalic, atraumatic, PERRLA, EOMI, sclera nonicteric, CARDIOVASCULAR: Regular rate and rhythm, normal S1 and S2, no murmurs appreciated LUNGS: Clear to auscultation throughout without any wheezes rales or rhonchi ABDOMEN: Diffuse tenderness in the lower quadrants bilaterally, otherwise soft, nondistended, no guarding. Bowel sounds present throughout. MUSCULOSKELETAL: Patient is able to move all extremities equally EXTREMITIES: No calf tenderness bilaterally. Trace LE edema b/l. NEUROLOGICAL: Muscle strength and CN grossly intact. Alert and oriented x3. Normal sensorium. PSYCHIATRIC: Mood and affect are appropriate given current medical condition. PAST SURGICAL HISTORY: Colonoscopy, upper endoscopy, oral surgery, bronchoscopy, fecal transplant FAMILY HISTORY: CHF, HTN, CAD, NHL SOCIAL HISTORY: Marital status : Children: daughter present today No current tobacco, etoh, illicit drug use REVIEW OF SYSTEMS: CONSTITUTIONAL: +weight loss, fatigue HEENT: denies vision changes, dysphagia CARDIOVASCULAR: denies CP RESPIRATORY: +SOB at times GENITOURINARY: +less frequent urination MUSCULOSKELETAL: +back pain GASTROINTESTINAL: +crampy pain, +diarrhea SKIN: +rashes NEUROLOGICAL: denies TIA CVA, sz, FLOYD PSYCHIATRIC: denies anxiety/depression ENDOCRINE: denies DM or thyroid disease HEMATOLOGIC/LYMPHATIC: denies bleeding or clotting disorder ALLERGIC/IMMUNOLOGIC: denies PHYSICAL EXAMINATION: VITAL SIGNS: Please see below. GENERAL APPEARANCE: medically stable HEENT: TMI, YOVANA RESPIRATORY: CTA CARDIOVASCULAR: RRR ABDOMEN: Soft NT EXTREMITIES: +pulses NEUROLOGICAL: A&Ox3, NAD PSYCHIATRIC: pleasant and cooperative LABORATORY DATA: Please see below. ASSESSMENT/PLAN: 1. Place central line today. We appreciate the opportunity to participate in the care of this patient. Vital Signs/I&O Vital Signs Date Time Temp Pulse Resp B/P (MAP) Pulse Ox O2 Delivery O2 Flow Rate FiO2 02/13/19 18:25 96.7 92 18 122/84 (97) 100 02/11/19 20:00 Room Air I&O- Last 24 Hours up to 6 AM 02/13/19 06:00 Intake Total 5690 ml Output Total 1125 ml Balance 4565 ml Laboratory Data Labs 24H Laboratory Tests 2 02/13/19 10:50: Immature Granulocyte % (Auto) 4.5H, White Blood Count 15.5H, Red Blood Count 5.12, Hemoglobin 16.3, Hematocrit 48.6, Mean Corpuscular Volume 94.9, Mean Corpuscular Hemoglobin 31.8, Mean Corpuscular Hemoglobin Concent 33.5, Red Cell Distribution Width 14.0, Platelet Count 409, Neutrophils (%) (Auto) 74.0H, Lymphocytes (%) (Auto) 12.0L, Monocytes (%) (Auto) 8.3H, Eosinophils (%) (Auto) 0.5, Basophils (%) (Auto) 0.7, Neutrophils # (Auto) 11.4H, Lymphocytes # (Auto) 1.9, Monocytes # (Auto) 1.3H, Eosinophils # (Auto) 0.1, Basophils # (Auto) 0.1, Nucleated Red Blood Cells % (auto) 0.0, Anion Gap 17H, Glomerular Filtration Rate > 60.0, Blood Urea Nitrogen 19H, Creatinine 0.85, Sodium Level 135L, Potassium Level 2.9#*L, Chloride Level 106, Carbon Dioxide Level 12L, Calcium Level 8.3L, Magnesium Level 2.3 CBC/BMP Laboratory Tests 02/13/19 10:50 Red Blood Count 5.12, Mean Corpuscular Volume 94.9, Mean Corpuscular Hemoglobin 31.8, Mean Corpuscular Hemoglobin Concent 33.5, Red Cell Distribution Width 14.0, Neutrophils (%) (Auto) 74.0 H, Lymphocytes (%) (Auto) 12.0 L, Monocytes (%) (Auto) 8.3 H, Eosinophils (%) (Auto) 0.5, Basophils (%) (Auto) 0.7, Neutrophils # (Auto) 11.4 H, Lymphocytes # (Auto) 1.9, Monocytes # (Auto) 1.3 H, Eosinophils # (Auto) 0.1, Basophils # (Auto) 0.1, Calcium Level 8.3 L Microbiology Microbiology 02/12/19 Blood Culture - Preliminary, Resulted No growth after 24 hours . All specim... 02/12/19 Blood Culture - Preliminary, Resulted No growth after 24 hours . All specim... Allergies Coded Allergies: epinephrine (Verified Adverse Reaction, Intermediate, HIGH DOSE EPI - SEVERE SVT, 09/08/18) codeine (Verified Adverse Reaction, Mild, hallucinations, 09/08/18) Home Medications Scheduled Apixaban (Eliquis) 5 Mg Tablet, 5 MG PO ASDIRECTED, (Reported) ISSUED ON 02/07/19: 10MG BID FOR 7 DAYS, THEN 5MG BID Dicyclomine HCl (Dicyclomine HCl) 20 Mg Tablet, 20 MG PO Q6H, (Reported) L.acidoph/L.bulg/B.bif/S.therm (Bacid Caplet) 1 Each Tablet, 1 TAB PO DAILY, (Reported) Multivitamin (Multivitamins) 1 Each Tablet, 1 TAB PO DAILY, (Reported) Prednisone (Prednisone) 10 Mg Tablet, 10 MG PO DAILY, (Reported) FOR 10 DAYS: STARTED 02/10/19 Vancomycin HCl (Firvanq) 25 Mg/1 Ml Soln.recon, 5 ML PO QID, (Reported) Vedolizumab (Entyvio) 300 Mg Vial, 300 MG IV ASDIRECTED, (Reported) EVERY 8 WEEKS Scheduled PRN Acetaminophen (Acetaminophen) 325 Mg Tablet, 650 MG PO Q6H PRN for PAIN, (Re ported) Albuterol Sulfate (Proair Hfa) 8.5 Gm Hfa.aer.ad, 2 PUFF INH Q4H PRN for SHORTNESS OF BREATH, (Reported) Calcium Carbonate (Tums) 200 Mg Tab.chew, 1,500 MG PO QID PRN for INDIGESTION, (Reported) BON BRIDGES MD Feb 13, 2019 19:38
[2019-02-13] MEDS: KCL 40MEQ in NS 1000ML 1,000 ML IV SCH (20:19)
[2019-02-14] VITALS: BP 106/59
[2019-02-14] MEDS: KCL 40MEQ in NS 1000ML 1,000 ML IV SCH ×4 (02:19→23:49)
[2019-02-14 04:00] VITALS: BP 137/82
[2019-02-14] MEDS: SODIUM CHLORIDE 0.9% INJ 10 ML SYR IV SCH ×3 (05:51→21:01)
[2019-02-14 06:13] LABS: BASO # 0.1 10^3/uL (0.0-0.2); BASO % 0.7 % (0.0-1.0); EOS # 0.1 10^3/uL (0.0-0.5); EOS % 0.4 % (0.0-3.0); HEMATOCRIT 42.2 % (42.0-52.0); HEMOGLOBIN 14.4 g/dl (13.5-17.5); LYMPH # 2.3 10^3/uL (1.5-5.0); LYMPH % 14.1 % (24.0-44.0); MEAN CORPUSCULAR HEMOGLOBIN 32.5 pg (27.0-33.0); MEAN CORPUSCULAR HGB CONC 34.1 g/dl (32.0-36.5); MEAN CORPUSCULAR VOLUME 95.3 fl (80.0-96.0); MONO # 1.5 10^3/uL (0.0-0.8); MONO % 8.8 % (0.0-5.0); NEUTROPHILS # 11.8 10^3/uL (1.5-8.5); NEUTROPHILS % 71.4 % (36.0-66.0); PLATELET COUNT, AUTOMATED 410 10^3/uL (150-450); RED BLOOD COUNT 4.43 10^6/uL (4.30-6.10); WHITE BLOOD COUNT 16.6 10^3/uL (4.0-10.0)
[2019-02-14 06:34] LABS: BLOOD UREA NITROGEN 17 MG/DL (7-18); CARBON DIOXIDE LEVEL 14 MEQ/L (21-32); CHLORIDE LEVEL 113 MEQ/L (98-107); CREATININE FOR GFR 0.92 MG/DL (0.70-1.30); GLOMERULAR FILTRATION RATE > 60.0 (>56); GLUCOSE, FASTING 80 MG/DL (70-100); MAGNESIUM LEVEL 2.1 MG/DL (1.8-2.4); POTASSIUM SERUM 3.8 MEQ/L (3.5-5.1); SODIUM LEVEL 142 MEQ/L (136-145)
[2019-02-14 08:00] VITALS: BP 138/58
[2019-02-14] MEDS: APIXABAN 5 MG TAB (ELIQUIS) PO SCH ×2 (08:23→20:57)
[2019-02-14] MEDS: predniSONE 10 MG TAB PO SCH (08:23)
[2019-02-14] MEDS: DICYCLOMINE 10 MG CAP PO SCH ×4 (08:23→20:58)
--- NOTE | 2019-02-14 09:07 | REP ---
AP PORTABLE CHEST: 02/13/2019. Comparison: Two-view chest 12/16/2018, portable chest 12/09/2018, CT chest 12/04/2018. Clinical history: Status post line placement. Right jugular central line catheter with tip in SVC near the right atrium. No widening of the mediastinum or apical pneumothorax on that right side. Lungs are adequately inflated. There is some linear fibrotic or atelectatic change in left base similar to previous radiographs. No definite effusion or infiltrate. Heart, mediastinal and hilar contours unchanged. Impression: 1. Right jugular central venous catheter with tip in SVC near the right atrium. No pneumothorax or widening of the mediastinum. No right effusion. 2. Minimal linear fibrotic or atelectatic change left lateral base. Electronically Signed by Ariel Leon MD 02/14/2019 01:07 P
[2019-02-14] MEDS: CALCIUM CARBONATE 500 MG CHEW U/D PO PRN ×2 (10:29→18:12)
--- NOTE | 2019-02-14 11:11 | IPNPDOC ---
Text Note Date of Service The patient was seen on 02/14/19. NOTE Subjective: Patient is a 48-year-old male with a PMHx of Hx of C. diff (with multiple hospitalizations), Chronic PE (on Eliquis), Asthma, Staph aureus pn eumonia with cavitary lesion (Follows with Dr. Auguste), Crohn's disease (on Prednisone, Budesonide and Entyvio), Psoriatic arthritis. Patient was diagnosis C. difficile colitis on 02/02/2019 and had presented to the emergency room on 02/07/2019 with increasing abdominal discomfort. Patient has attempted to continue with deficit, but has failed therapy as an outpatient. Patient was seen by a horse racetrack manager who had recommended that he go into the ER for further evaluation. Patient was admitted to hospitalist service for further evaluation and treatment. Gastric nephrology was called on consultation. Patient was seen and examined at the bedside. Patient reports that since 12 AM he's experienced 2 episodes of bowel movements. Denies chest pain, short of breath, palpitations. Denies any abdominal pain or dysuria. Objective: Vitals (See below) General: Lying in bed, no acute distress, comfortable, AAOx3 HEENT: NC, AT CVS: +S1S2 Lungs: Air entry remains fair without rhonchi, rales or wheezing Abdomen: Abdomen is soft, without any distention or tenderness Extremities: LE are free of edema , - Calf tenderness Assessment and plan: Leukocytosis - likely 2/2 Severe C. diff colitis - Patient has failed outpatient antibiotic therapy - s/p stool transplant on 02/12/[address] Huber - Yesterday, 02/05/2019 patient had several episodes of diarrhea; since 12am he has had 2 bowel movements - however were reported to be more formed - Physical , again, is without any tenderness - CT abdomen/pelvis 02/07: 1. Decreased colonic distention since 12/03/2018. There is also decreased colonic fluid although some colonic fluid is noted to the sig moid suggesting diarrhea. There is new wall thickening of the distal sigmoid and rectum consistent with distal colitis or proctitis. 2. Decreased small bowel distention and air-fluid levels since the prior study. There is new small bowel wall thickening with mucosal enhancement and induration of supplying mesentery, particularly ileal segments in the pelvis consistent with enteritis and may reflect Crohn's disease. 3. Posterior right lower lobe pulmonary embolism which is similar to the prior study. 4. Mild bibasilar fibro-atelectatic change, left greater than right which is similar. 5. Mild fatty infiltration of the liver. 6. Mild pancreatic atrophy for age. 7. Borderline central mesenteric nodes which are increased and may be reactive. - s/p Vancomycin PO - Gastroenterology; Dr. Huber on consultation High AG acidosis / metabolic alkalosis - likely 2/2 diarrhea, ketoacidosis, - Delta / Delta of >2 - Improving - Will c/w IV fluids Chronic PE - Currently, patient does not report any significant respiratory difficulty - c/w Eliquis Asthma - No evidence of exacerbation - c/w inhaled therapy is ordered Staph aureus pneumonia with cavitary lesion - Follows with Dr. Auguste Crohn's disease - c/w Prednisone, Budesonide and Entyvio Psoriatic arthritis DVT prophylaxis - c/w full anticoagulation with Eliquis VS,Fishbone, I+O VS, Fishbone, I+O Laboratory Tests 02/14/19 05:55 Red Blood Count 4.43, Mean Corpuscular Volume 95.3, Mean Corpuscular Hemoglobin 32.5, Mean Corpuscular Hemoglobin Concent 34.1, Red Cell Distribution Width 14.2, Neutrophils (%) (Auto) 71.4 H, Lymphocytes (%) (Auto) 14.1 L, Monocytes (%) (Auto) 8.8 H, Eosinophils (%) (Auto) 0.4, Basophils (%) (Auto) 0.7, Neutrophils # (Auto) 11.8 H, Lymphocytes # (Auto) 2.3, Monocytes # (Auto) 1.5 H, Eosinophils # (Auto) 0.1, Basophils # (Auto) 0.1, Calcium Level 8.0 L Vital Signs Date Time Temp Pulse Resp B/P (MAP) Pulse Ox O2 Delivery O2 Flow Rate FiO2 02/14/19 08:00 97.3 69 17 138/58 (84) 93 02/11/19 20:00 Room Air I&O- Last 24 Hours up to 6 AM 02/14/19 06:00 Intake Total 6500 ml Output Total 1925 ml Balance 4575 ml EZEKIEL MARTINEZ MD Feb 14, 2019 11:11
[2019-02-14] MEDS: ACETAMINOPHEN TAB 650MG DOSE (2X325MG) PO PRN ×2 (13:11→18:12)
[2019-02-14 16:00] VITALS: BP 136/78
[2019-02-14] MEDS ORDERED: CLOPIDOGREL 75 MG TAB PO ONE (19:15)
[2019-02-14 20:00] VITALS: BP 140/97
[2019-02-14 23:59] VITALS: BP 116/63
[2019-02-15 03:52] VITALS: BP 119/82
[2019-02-15 05:07] LABS: BASO # 0.1 10^3/uL (0.0-0.2); BASO % 0.8 % (0.0-1.0); EOS # 0.1 10^3/uL (0.0-0.5); EOS % 0.6 % (0.0-3.0); HEMATOCRIT 41.9 % (42.0-52.0); HEMOGLOBIN 13.9 g/dl (13.5-17.5); LYMPH % 14.2 % (24.0-44.0); MEAN CORPUSCULAR HEMOGLOBIN 32.6 pg (27.0-33.0); MEAN CORPUSCULAR HGB CONC 33.2 g/dl (32.0-36.5); MEAN CORPUSCULAR VOLUME 98.1 fl (80.0-96.0); MONO # 1.2 10^3/uL (0.0-0.8); MONO % 8.4 % (0.0-5.0); NEUTROPHILS # 10.3 10^3/uL (1.5-8.5); NEUTROPHILS % 71.5 % (36.0-66.0); PLATELET COUNT, AUTOMATED 403 10^3/uL (150-450); RED BLOOD COUNT 4.27 10^6/uL (4.30-6.10); WHITE BLOOD COUNT 14.4 10^3/uL (4.0-10.0)
[2019-02-15 05:36] LABS: ALBUMIN 2.4 GM/DL (3.2-5.2); ALT/SGPT 24 U/L (12-78); BILIRUBIN,TOTAL 0.5 MG/DL (0.2-1.0); BLOOD UREA NITROGEN 17 MG/DL (7-18); CARBON DIOXIDE LEVEL 13 MEQ/L (21-32); CHLORIDE LEVEL 114 MEQ/L (98-107); CREATININE FOR GFR 0.95 MG/DL (0.70-1.30); GLOMERULAR FILTRATION RATE > 60.0 (>56); GLUCOSE, FASTING 77 MG/DL (70-100); SODIUM LEVEL 144 MEQ/L (136-145); TOTAL PROTEIN 4.9 GM/DL (6.4-8.2)
[2019-02-15 06:20] LABS: CLOSTRIDIUM DIFFICILE PCR NEGATIVE (NEGATIVE)
[2019-02-15] MEDS: SODIUM CHLORIDE 0.9% INJ 10 ML SYR IV SCH ×3 (06:34→22:33)
[2019-02-15] MEDS: ACETAMINOPHEN TAB 650MG DOSE (2X325MG) PO PRN ×2 (06:37→16:25)
[2019-02-15 08:00] VITALS: BP 120/80
[2019-02-15] MEDS ORDERED: KCL 20MEQ IN D5/0.45NS 1000ML 1,000 ML IV SCH (08:00)
[2019-02-15] MEDS: APIXABAN 5 MG TAB (ELIQUIS) PO SCH ×2 (08:00→20:01)
[2019-02-15] MEDS: predniSONE 10 MG TAB PO SCH (08:00)
[2019-02-15] MEDS: DICYCLOMINE 10 MG CAP PO SCH ×4 (08:00→20:01)
[2019-02-15] MEDS ORDERED: CLOPIDOGREL 75 MG TAB PO SCH (09:00)
--- NOTE | 2019-02-15 10:31 | IPN ---
DATE OF SERVICE: 02/15/2019 The patient is status post stool transplant for presumed Clostridium (C) difficile colitis superimposed on Crohn disease on Friday 3 days ago. His C. difficile is again negative for toxin; and his abdominal pain, diarrhea, and stool volume have not improved since the stool transplant. At this point, his acute exacerbation of diarrhea is related to failure of Entyvio rather than persistent C. difficile colitis. He denies any shortness of breath. No chest pain. He continues with frequent abdominal cramping and has had several stools today already, small volume after tenesmus. There is no blood. CURRENT MEDICATIONS: Are: - Eliquis 5 mg twice a day - prednisone 10 mg twice a day - Tums as needed - acetaminophen as needed - dicyclomine as needed LABORATORY WORK: WBC is 14.4, hemoglobin 13.9, MCV 98.1, platelet count is 403. Sodium 144, potassium 4.0, chloride 114, CO2 13, BUN 17, creatinine 0.95, albumin 2.4. Vital signs: Temperature 98.3, pulse is 81, respiratory rate 18, blood pressure 120/80, pulse oximetry 99% on room air. Head, eyes, ears, nose, and throat: Is grossly without abnormality. No scleral icterus. No oral thrush. Neck is supple. No lymphadenopathy. Chest is clear bilaterally. No rhonchi or crackles. Heart is regular rate and rhythm, S1, S2. No murmurs or gallops. Abdomen is soft, positive bowel sounds. Mild to moderate tenderness on deep palpation without any rebound tenderness or other peritoneal signs. No masses are felt. Extremities: 1+ pedal edema. IMPRESSION: 1. Crohn disease/enterocolitis 2. Recent Clostridium (C) difficile infection. DISCUSSION: I initially presumed that his acute exacerbation of abdominal pain and diarrhea was related to the new onset of Clostridium difficile colitis. It is of note that the patient has been doing quite well on Entyvio until approximately 3 weeks ago when he abruptly had deterioration of symptoms, at which time C. difficile was positive. He was treated with Dificid and then vancomycin without improvement. He had a couple of Clostridium difficile toxins performed, which were now negative albeit unreliable. He is status post empiric stool transplant 3 days ago for presumed C. difficile, however, has over the past 3 days not improved whatsoever. At this point, I believe most likely that his symptoms are related to a true Crohn flare rather than persistent C. difficile. I will increase his steroids to Solu-Medrol 40 mg intravenous (IV) q 12; and hopefully, we can improve his symptoms over the next 2-3 days. In the meantime, I will make inroads on changing Entyvio to an alternative biologic agent. FEROZD
[2019-02-15] MEDS: methylPREDNISolone INJ 40 MG/1 ML VIAL (J2920) IV SCH ×2 (10:50→22:33)
[2019-02-15] MEDS: SODIUM CHLORIDE 0.9% INJ 10 ML SYR IV PRN ×2 (10:51→16:07)
[2019-02-15 10:59] LABS: C REACTIVE PROTEIN QUANTITATIV 0.81 MG/DL (0.00-0.30)
--- NOTE | 2019-02-15 11:57 | IPNPDOC ---
Text Note Date of Service The patient was seen on 02/15/19. NOTE Subjective: Patient is a 48-year-old male with a PMHx of Hx of C. diff (with multiple hospitalizations), Chronic PE (on Eliquis), Asthma, Staph aureus pn eumonia with cavitary lesion (Follows with Dr. Auguste), Crohn's disease (on Prednisone, Budesonide and Entyvio), Psoriatic arthritis. Patient was diagnosis C. difficile colitis on 02/02/2019 and had presented to the emergency room on 02/07/2019 with increasing abdominal discomfort. Patient has attempted to continue with deficit, but has failed therapy as an outpatient. Patient was seen by a vacuum kettle cook who had recommended that he go into the ER for further evaluation. Patient was admitted to hospitalist service for further evaluation and treatment. Gastric nephrology was called on consultation. Patient was seen and examined at the bedside. Patient continues to experience loose water stool. Denies any significant abdominal pain. Denies any CP, SOB or palpitations. Reports that he has at least 3 BMs today - all noted to be watery / undigested food. Objective: Vitals (See below) General: Lying in bed, no acute distress, comfortable, AAOx3 HEENT: NC, AT CVS: +S1S2 Lungs: Appears to have fair air entry bilaterally without any auscultated rhonchi, rales or wheezing Abdomen: Abdomen remains soft, no distention/tenderness Extremities: No edema is appreciated. Lower extremities, - Calf tenderness Assessment and plan: Loose watery stools / Leukocytosis - possibly 2/2 Crohn's disease flare; possibly 2/2 Severe C. diff colitis - Patient has failed outpatient antibiotic therapy - Continues experiencing loose watery stools several episodes noted - Physical without abdominal tenderness; remains hemodynamically stable - CT abdomen/pelvis 02/07: 1. Decreased colonic distention since 12/03/2018. There is also decreased colonic fluid although some colonic fluid is noted to the sigmoid suggesting diarrhea. There is new wall thickening of the distal sigmoid and rectum consistent with distal colitis or proctitis. 2. Decreased small bowel distention and air-fluid levels since the prior study. There is new small bowel wall thickening with mucosal enhancement and induration of supplying mesentery, particularly ileal segments in the pelvis consistent with enteritis and may reflect Crohn's disease. 3. Posterior right lower lobe pulmonary embolism which is similar to the prior study. 4. Mild bibasilar fibro-atelectatic change, left greater than right which is similar. 5. Mild fatty infiltration of the liver. 6. Mild pancreatic atrophy for age. 7. Borderline central mesenteric nodes which are increased and may be reactive. 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 Huber - s/p Vancomycin PO - Has been started on Solu-Medrol as per gastroenterology - Gastroenterology; Dr. Huber on consultation Crohn's disease - c/w Budesonide and Entyvio - Patient may require alternative immunotherapy as an outpatient High AG acidosis / metabolic alkalosis - likely 2/2 diarrhea, ketoacidosis, - Delta / Delta of >2 - Improving / Stable - Will c/w IV fluids; will adjust to include Dextrose and Bicarbonate Chronic PE - Currently, patient does not report any significant respiratory difficulty - c/w Eliquis - Patient follows with Dr. Auguste as an outpatient Asthma - No evidence of exacerbation - c/w inhaled therapy is ordered Staph aureus pneumonia with cavitary lesion - Follows with Dr. Auguste Psoriatic arthritis DVT prophylaxis - c/w full anticoagulation with Eliquis VS,Fishbone, I+O VS, Fishbone, I+O Laboratory Tests 02/15/19 04:27 Calcium Level 8.0 L, Aspartate Amino Transf (AST/SGOT) 15, Alanine Aminotransferase (ALT/SGPT) 24, Alkaline Phosphatase 83, Total Bilirubin 0.5, Total Protein 4.9 L, Albumin 2.4 L 02/15/19 04:28 Red Blood Count 4.27 L, Mean Corpuscular Volume 98.1 H, Mean Corpuscular Hemoglobin 32.6, Mean Corpuscular Hemoglobin Concent 33.2, Red Cell Distribution Width 14.5, Neutrophils (%) (Auto) 71.5 H, Lymphocytes (%) (Auto) 14.2 L, Monocytes (%) (Auto) 8.4 H, Eosinophils (%) (Auto) 0.6, Basophils (%) (Auto) 0.8, Neutrophils # (Auto) 10.3 H, Lymphocytes # (Auto) 2.0, Monocytes # (Auto) 1.2 H, Eosinophils # (Auto) 0.1, Basophils # (Auto) 0.1 Vital Signs Date Time Temp Pulse Resp B/P (MAP) Pulse Ox O2 Delivery O2 Flow Rate FiO2 02/15/19 08:00 98.3 81 18 120/80 (93) 99 02/11/19 20:00 Room Air I&O- Last 24 Hours up to 6 AM 02/15/19 06:00 Intake Total 5909 ml Output Total 1720 ml Balance 4189 ml EZEKIEL MARTINEZ MD Feb 15, 2019 11:57
[2019-02-15 12:00] VITALS: BP 118/80
[2019-02-15] MEDS: KCL IV SCH ×4 (12:02→20:02)
[2019-02-15] MEDS: D5 IV SCH ×4 (12:02→20:02)
[2019-02-15] MEDS: SODIUM BICARBONATE IV SCH ×4 (12:02→20:02)
[2019-02-15] MEDS: [UNRECOGNIZED DRUG - OTHER] IV SCH ×4 (12:02→20:02)
[2019-02-15 16:00] VITALS: BP 132/88
[2019-02-15] MEDS: CALCIUM CARBONATE 500 MG CHEW U/D PO PRN (18:12)
[2019-02-15 19:53] VITALS: BP 134/84
[2019-02-15 23:00] VITALS: BP 118/72
[2019-02-16] MEDS: ACETAMINOPHEN TAB 650MG DOSE (2X325MG) PO PRN ×3 (00:31→16:26)
[2019-02-16] MEDS: SODIUM BICARBONATE IV SCH ×6 (03:45→18:23)
[2019-02-16] MEDS: KCL IV SCH ×6 (03:45→18:23)
[2019-02-16] MEDS: D5 IV SCH ×6 (03:45→18:23)
[2019-02-16] MEDS: [UNRECOGNIZED DRUG - OTHER] IV SCH ×6 (03:45→18:23)
[2019-02-16] MEDS: CALCIUM CARBONATE 500 MG CHEW U/D PO PRN ×2 (03:55→20:55)
[2019-02-16 04:00] VITALS: BP 140/86
[2019-02-16] MEDS: SODIUM CHLORIDE 0.9% INJ 10 ML SYR IV SCH ×3 (06:19→22:11)
[2019-02-16 06:48] LABS: C REACTIVE PROTEIN QUANTITATIV < 0.30 MG/DL (0.00-0.30)
[2019-02-16 07:46] LABS: BLOOD UREA NITROGEN 14 MG/DL (7-18); CALCIUM LEVEL 8.4 MG/DL (8.5-10.1); CARBON DIOXIDE LEVEL 18 MEQ/L (21-32); CHLORIDE LEVEL 117 MEQ/L (98-107); CREATININE FOR GFR 0.96 MG/DL (0.70-1.30); GLOMERULAR FILTRATION RATE > 60.0 (>56); GLUCOSE, FASTING 147 MG/DL (70-100); MAGNESIUM LEVEL 1.9 MG/DL (1.8-2.4); POTASSIUM SERUM 3.6 MEQ/L (3.5-5.1); SODIUM LEVEL 143 MEQ/L (136-145)
[2019-02-16 08:00] VITALS: BP 126/88
[2019-02-16] MEDS: DICYCLOMINE 10 MG CAP PO SCH ×4 (08:23→20:01)
[2019-02-16] MEDS: APIXABAN 5 MG TAB (ELIQUIS) PO SCH ×2 (08:24→20:01)
[2019-02-16 08:45] LABS: BASO # 0.1 10^3/uL (0.0-0.2); BASO % 0.3 % (0.0-1.0); HEMOGLOBIN 12.7 g/dl (13.5-17.5); LYMPH # 1.3 10^3/uL (1.5-5.0); LYMPH % 8.8 % (24.0-44.0); MEAN CORPUSCULAR HEMOGLOBIN 32.5 pg (27.0-33.0); MEAN CORPUSCULAR HGB CONC 33.4 g/dl (32.0-36.5); MEAN CORPUSCULAR VOLUME 97.2 fl (80.0-96.0); MONO # 0.5 10^3/uL (0.0-0.8); MONO % 3.1 % (0.0-5.0); NEUTROPHILS # 12.4 10^3/uL (1.5-8.5); NEUTROPHILS % 85.3 % (36.0-66.0); PLATELET COUNT, AUTOMATED 395 10^3/uL (150-450); RED BLOOD COUNT 3.91 10^6/uL (4.30-6.10); WHITE BLOOD COUNT 14.5 10^3/uL (4.0-10.0)
[2019-02-16 09:36] LABS: DRVV SCREEN 48.2 SEC
[2019-02-16 10:07] LABS: PTT LUPUS TYPE ANTICOAG SCREEN 1.2 (0-1.2)
[2019-02-16 10:15] LABS: DRVV CONFIRM 48.4 SEC; LUPUS CONFIRM RATIO 1.2
[2019-02-16] MEDS: methylPREDNISolone INJ 40 MG/1 ML VIAL (J2920) IV SCH ×2 (10:59→22:12)
[2019-02-16] MEDS: SODIUM CHLORIDE 0.9% INJ 10 ML SYR IV PRN ×2 (11:00→22:11)
--- NOTE | 2019-02-16 11:53 | IPNPDOC ---
Text Note Date of Service The patient was seen on 02/16/19. NOTE Subjective: Patient is a 48-year-old male with a PMHx of Hx of C. diff (with multiple hospitalizations), Chronic PE (on Eliquis), Asthma, Staph aureus pn eumonia with cavitary lesion (Follows with Dr. Auguste), Crohn's disease (on Prednisone, Budesonide and Entyvio), Psoriatic arthritis. Patient was diagnosis C. difficile colitis on 02/02/2019 and had presented to the emergency room on 02/07/2019 with increasing abdominal discomfort. Patient has attempted to continue with deficit, but has failed therapy as an outpatient. Patient was seen by a peoples[employer] financial developer who had recommended that he go into the ER for further evaluation. Patient was admitted to hospitalist service for further evaluation and treatment. Gastric nephrology was called on consultation. Patient was seen and examined at the bedside. Continues to experience loose water stools. Denies any CP, SOB or palpitations. Reports some abdominal discomfort. Denies any dysuria. Objective: Vitals (See below) General: Lying in bed, no acute distress, comfortable, AAOx3 HEENT: NC, AT CVS: +S1S2 Lungs: Fair b/l, no wheezing / rhonchi / rales Abdomen: Abdomen remains soft, mild tenderness noted at upper quadrants b/l, no distension Extremities: LE are without any edema, - Calf tenderness Assessment and plan: Loose watery stools / Leukocytosis - possibly 2/2 Crohn's disease flare; possibly 2/2 Severe C. diff colitis - Patient has failed outpatient antibiotic therapy - Continuous watery stools - Physical without abdominal tenderness; remains hemodynamically stable - CT abdomen/pelvis 02/07: 1. Decreased colonic distention since 12/03/2018. There is also decreased colonic fluid although some colonic fluid is noted to the sigmoid suggesting diarrhea. There is new wall thickening of the distal sigmoid and rectum consistent with distal colitis or proctitis. 2. Decreased small bowel distention and air-fluid levels since the prior study. There is new small bowel wall thickening with mucosal enhancement and induration of supplying mesentery, particularly ileal segments in the pelvis consistent with enteritis and may reflect Crohn's disease. 3. Posterior right lower lobe pulmonary embolism which is similar to the prior study. 4. Mild bibasilar fibro-atelectatic change, left greater than right which is similar. 5. Mild fatty infiltration of the liver. 6. Mild pancreatic atrophy for age. 7. Borderline central mesenteric nodes which are increased and may be reactive. 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 Huber - s/p Vancomycin PO - c/w Solu-Medrol - Gastroenterology; Dr. Huber on consultation Crohn's disease - c/w Budesonide and Entyvio - Patient may require alternative immunotherapy as an outpatient; looking into Humira s/p High AG acidosis - likely 2/2 diarrhea, ketoacidosis, - Delta / Delta of >2 - Improving / Stable - c/w IV fluids with Dextrose and Bicarbonate Chronic PE - Currently, patient does not report any significant respiratory difficulty - c/w Eliquis - Patient follows with Dr. Auguste as an outpatient; discussed case - advised to get Hypercoagulability workup to determine Anticoagulation duration Asthma - No evidence of exacerbation - c/w inhaled therapy is ordered Staph aureus pneumonia with cavitary lesion - Follows with Dr. Auguste Psoriatic arthritis DVT prophylaxis - c/w full anticoagulation with Eliquis VS,Fishbone, I+O VS, Fishbone, I+O Laboratory Tests 02/16/19 06:15 Calcium Level 8.4 L 02/16/19 08:25 Red Blood Count 3.91 L, Mean Corpuscular Volume 97.2 H, Mean Corpuscular Hemoglobin 32.5, Mean Corpuscular Hemoglobin Concent 33.4, Red Cell Distribution Width 14.4, Neutrophils (%) (Auto) 85.3 H, Lymphocytes (%) (Auto) 8.8 L, Monocytes (%) (Auto) 3.1, Eosinophils (%) (Auto) 0.0, Basophils (%) (Auto) 0.3, Neutrophils # (Auto) 12.4 H, Lymphocytes # (Auto) 1.3 L, Monocytes # (Auto) 0.5, Eosinophils # (Auto) 0.0, Basophils # (Auto) 0.1 Vital Signs Date Time Temp Pulse Resp B/P (MAP) Pulse Ox O2 Delivery O2 Flow Rate FiO2 02/16/19 08:00 97.4 75 18 126/88 (101) 98 02/11/19 20:00 Room Air I&O- Last 24 Hours up to 6 AM 02/16/19 06:00 Intake Total 9990 ml Output Total 600 ml Balance 9390 ml EZEKIEL MARTINEZ MD Feb 16, 2019 11:53
[2019-02-16 12:00] VITALS: BP 120/90
[2019-02-16 16:00] VITALS: BP 110/80
[2019-02-16 20:00] VITALS: BP 120/64
[2019-02-17] VITALS: BP 129/76
[2019-02-17] MEDS: KCL IV SCH ×8 (01:59→22:00)
[2019-02-17] MEDS: [UNRECOGNIZED DRUG - OTHER] IV SCH ×4 (01:59→09:09)
[2019-02-17] MEDS: D5 IV SCH ×4 (01:59→09:09)
[2019-02-17] MEDS: SODIUM BICARBONATE IV SCH ×8 (01:59→22:00)
[2019-02-17 04:00] VITALS: BP 136/86
[2019-02-17] MEDS: ACETAMINOPHEN TAB 650MG DOSE (2X325MG) PO PRN ×2 (05:11→16:08)
[2019-02-17] MEDS: SODIUM CHLORIDE 0.9% INJ 10 ML SYR IV SCH ×3 (05:12→22:34)
[2019-02-17] MEDS: SODIUM CHLORIDE 0.9% INJ 10 ML SYR IV PRN ×2 (05:12→11:33)
[2019-02-17 06:01] LABS: BASO % 0.2 % (0.0-1.0); HEMATOCRIT 40.8 % (42.0-52.0); HEMOGLOBIN 13.2 g/dl (13.5-17.5); LYMPH # 1.1 10^3/uL (1.5-5.0); LYMPH % 6.7 % (24.0-44.0); MEAN CORPUSCULAR HEMOGLOBIN 31.9 pg (27.0-33.0); MEAN CORPUSCULAR HGB CONC 32.4 g/dl (32.0-36.5); MEAN CORPUSCULAR VOLUME 98.6 fl (80.0-96.0); MONO # 0.6 10^3/uL (0.0-0.8); MONO % 3.6 % (0.0-5.0); NEUTROPHILS # 14.6 10^3/uL (1.5-8.5); NEUTROPHILS % 86.2 % (36.0-66.0); PLATELET COUNT, AUTOMATED 423 10^3/uL (150-450); RED BLOOD COUNT 4.14 10^6/uL (4.30-6.10); WHITE BLOOD COUNT 16.9 10^3/uL (4.0-10.0)
[2019-02-17 06:10] LABS: BLOOD UREA NITROGEN 15 MG/DL (7-18); C REACTIVE PROTEIN QUANTITATIV < 0.30 MG/DL (0.00-0.30); CALCIUM LEVEL 8.6 MG/DL (8.5-10.1); CARBON DIOXIDE LEVEL 16 MEQ/L (21-32); CHLORIDE LEVEL 119 MEQ/L (98-107); CREATININE FOR GFR 1.21 MG/DL (0.70-1.30); GLOMERULAR FILTRATION RATE > 60.0 (>56); GLUCOSE, FASTING 125 MG/DL (70-100); MAGNESIUM LEVEL 2.1 MG/DL (1.8-2.4); POTASSIUM SERUM 3.6 MEQ/L (3.5-5.1); SODIUM LEVEL 144 MEQ/L (136-145)
[2019-02-17 07:41] VITALS: BP 120/76
[2019-02-17] MEDS: APIXABAN 5 MG TAB (ELIQUIS) PO SCH ×2 (08:05→20:33)
[2019-02-17] MEDS: DICYCLOMINE 10 MG CAP PO SCH ×4 (08:05→20:33)
[2019-02-17] MEDS: methylPREDNISolone INJ 40 MG/1 ML VIAL (J2920) IV SCH ×2 (11:28→22:34)
[2019-02-17 12:00] VITALS: BP 135/98
--- NOTE | 2019-02-17 12:15 | IPNPDOC ---
Text Note Date of Service The patient was seen on 02/17/19. NOTE Subjective: Patient is a 48-year-old male with a PMHx of Hx of C. diff (with multiple hospitalizations), Chronic PE (on Eliquis), Asthma, Staph aureus pn eumonia with cavitary lesion (Follows with Dr. Auguste), Crohn's disease (on Prednisone, Budesonide and Entyvio), Psoriatic arthritis. Patient was diagnosis C. difficile colitis on 02/02/2019 and had presented to the emergency room on 02/07/2019 with increasing abdominal discomfort. Patient has attempted to continue with deficit, but has failed therapy as an outpatient. Patient was seen by a hand ornament maker who had recommended that he go into the ER for further evaluation. Patient was admitted to hospitalist service for further evaluation and treatment. Gastric nephrology was called on consultation. Patient was seen and examined at the bedside. Patient reports that he continues to experience profuse diarrhea. Denies any significant abdominal pain, nausea or vomiting. Has not. Chest pain, shortness breath or palpitations. Objective: Vitals (See below) General: Lying in bed, no acute distress, comfortable, AAOx3 HEENT: NC, AT CVS: +S1S2 Lungs: Fair entry, remains fair bilaterally without rhonchi, wheezing or crackles Abdomen: Abdomen remains soft. Any distention, no significant tenderness on physical this morning Extremities: No significant edema, - Calf tenderness Assessment and plan: Loose watery stools / Leukocytosis - possibly 2/2 Crohn's disease flare; possibly 2/2 Severe C. diff colitis - Patient has failed outpatient antibiotic therapy - Patient is continued to experience diffuse watery stools - Physical without abdominal tenderness; remains hemodynamically stable - CT abdomen/pelvis 02/07: 1. Decreased colonic distention since 12/03/2018. There is also decreased colonic fluid although some colonic fluid is noted to the sigmoid suggesting diarrhea. There is new wall thickening of the distal sigmoid and rectum consistent with distal colitis or proctitis. 2. Decreased small bowel distention and air-fluid levels since the prior study. There is new small bowel wall thickening with mucosal enhancement and induration of supplying mesentery, particularly ileal segments in the pelvis consistent with enteritis and may reflect Crohn's disease. 3. Posterior right lower lobe pulmonary embolism which is similar to the prior study. 4. Mild bibasilar fibro-atelectatic change, left greater than right which is similar. 5. Mild fatty infiltration of the liver. 6. Mild pancreatic atrophy for age. 7. Borderline central mesenteric nodes which are increased and may be reactive. 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 Huber - s/p Vancomycin PO - c/w Solu-Medrol - Gastroenterology; Dr. Huber on consultation; will discuss with gastroenterology about starting anti-diarrhea medication Crohn's disease - c/w Budesonide and Entyvio - Patient may require alternative immunotherapy as an outpatient; looking into Humira s/p High AG acidosis - likely 2/2 diarrhea, ketoacidosis, - Delta / Delta of >2 - Improving / Stable - c/w IV fluids - will adjust Chronic PE - Currently, patient does not report any significant respiratory difficulty - c/w Eliquis - Patient follows with Dr. Auguste as an outpatient; discussed case - advised to get Hypercoagulability workup to determine Anticoagulation duration Asthma - No evidence of exacerbation - c/w inhaled therapy is ordered Staph aureus pneumonia with cavitary lesion - Follows with Dr. Auguste Psoriatic arthritis DVT prophylaxis - c/w full anticoagulation with Eliquis VS,Fishbone, I+O VS, Fishbone, I+O Laboratory Tests 02/17/19 05:26 Red Blood Count 4.14 L, Mean Corpuscular Volume 98.6 H, Mean Corpuscular He moglobin 31.9, Mean Corpuscular Hemoglobin Concent 32.4, Red Cell Distribution Width 14.3, Neutrophils (%) (Auto) 86.2 H, Lymphocytes (%) (Auto) 6.7 L, Monocytes (%) (Auto) 3.6, Eosinophils (%) (Auto) 0.0, Basophils (%) (Auto) 0.2, Neutrophils # (Auto) 14.6 H, Lymphocytes # (Auto) 1.1 L, Monocytes # (Auto) 0.6, Eosinophils # (Auto) 0.0, Basophils # (Auto) 0.0, Calcium Level 8.6 Vital Signs Date Time Temp Pulse Resp B/P (MAP) Pulse Ox O2 Delivery O2 Flow Rate FiO2 02/17/19 07:41 97.4 71 18 120/76 (91) 98 02/11/19 20:00 Room Air I&O- Last 24 Hours up to 6 AM 02/17/19 05:59 Intake Total 9560 ml Output Total 250 ml Balance 9310 ml EZEKIEL MARTINEZ MD Feb 17, 2019 12:15
[2019-02-17] MEDS: CALCIUM CARBONATE 500 MG CHEW U/D PO PRN (13:14)
[2019-02-17] MEDS: NS IV SCH ×4 (14:43→22:00)
[2019-02-17 15:55] VITALS: BP 132/82
[2019-02-17] MEDS: CHOLESTYRAMINE 4 GM PWD PKT PO SCH ×2 (16:17→20:33)
[2019-02-17] MEDS: LOMOTIL 2.5MG/0.025MG TABLET PO SCH ×2 (16:17→20:35)
[2019-02-17 20:00] VITALS: BP 122/76
[2019-02-18] VITALS: BP 118/60
[2019-02-18] MEDS: ACETAMINOPHEN TAB 650MG DOSE (2X325MG) PO PRN ×3 (02:53→19:42)
[2019-02-18 04:00] VITALS: BP 122/80
[2019-02-18] MEDS: SODIUM CHLORIDE 0.9% INJ 10 ML SYR IV SCH ×3 (04:46→23:56)
[2019-02-18 05:12] LABS: BASO # 0.1 10^3/uL (0.0-0.2); BASO % 0.3 % (0.0-1.0); HEMATOCRIT 38.4 % (42.0-52.0); HEMOGLOBIN 12.4 g/dl (13.5-17.5); LYMPH # 0.9 10^3/uL (1.5-5.0); MEAN CORPUSCULAR HEMOGLOBIN 32.5 pg (27.0-33.0); MEAN CORPUSCULAR HGB CONC 32.3 g/dl (32.0-36.5); MEAN CORPUSCULAR VOLUME 100.8 fl (80.0-96.0); MONO # 0.4 10^3/uL (0.0-0.8); MONO % 2.7 % (0.0-5.0); NEUTROPHILS # 12.9 10^3/uL (1.5-8.5); NEUTROPHILS % 87.5 % (36.0-66.0); PLATELET COUNT, AUTOMATED 340 10^3/uL (150-450); RED BLOOD COUNT 3.81 10^6/uL (4.30-6.10); WHITE BLOOD COUNT 14.7 10^3/uL (4.0-10.0)
[2019-02-18 05:51] LABS: BLOOD UREA NITROGEN 19 MG/DL (7-18); C REACTIVE PROTEIN QUANTITATIV < 0.30 MG/DL (0.00-0.30); CALCIUM LEVEL 8.3 MG/DL (8.5-10.1); CARBON DIOXIDE LEVEL 18 MEQ/L (21-32); CHLORIDE LEVEL 125 MEQ/L (98-107); CREATININE FOR GFR 1.22 MG/DL (0.70-1.30); GLOMERULAR FILTRATION RATE > 60.0 (>56); GLUCOSE, FASTING 111 MG/DL (70-100); MAGNESIUM LEVEL 1.9 MG/DL (1.8-2.4); POTASSIUM SERUM 4.4 MEQ/L (3.5-5.1); SODIUM LEVEL 150 MEQ/L (136-145)
[2019-02-18] MEDS: NS IV SCH ×2 (05:51)
[2019-02-18] MEDS: SODIUM BICARBONATE IV SCH ×4 (05:51→17:27)
[2019-02-18] MEDS: KCL IV SCH ×2 (05:51)
[2019-02-18] MEDS: CALCIUM CARBONATE 500 MG CHEW U/D PO PRN (06:02)
[2019-02-18 07:41] VITALS: BP 118/80
[2019-02-18] MEDS: APIXABAN 5 MG TAB (ELIQUIS) PO SCH ×2 (08:34→20:30)
[2019-02-18] MEDS: DICYCLOMINE 10 MG CAP PO SCH ×4 (08:34→20:30)
[2019-02-18] MEDS: CHOLESTYRAMINE 4 GM PWD PKT PO SCH ×4 (08:34→21:33)
[2019-02-18] MEDS: D5W IV SCH ×2 (08:34→17:27)
[2019-02-18] MEDS: LOMOTIL 2.5MG/0.025MG TABLET PO SCH ×2 (08:34→20:30)
[2019-02-18] MEDS: SODIUM CHLORIDE IV SCH ×2 (08:34→17:27)
--- NOTE | 2019-02-18 10:50 | IPNPDOC ---
Text Note Date of Service The patient was seen on 02/18/19. NOTE Subjective: Patient is a 48-year-old male with a PMHx of Hx of C. diff (with multiple hospitalizations), Chronic PE (on Eliquis), Asthma, Staph aureus pn eumonia with cavitary lesion (Follows with Dr. Auguste), Crohn's disease (on Prednisone, Budesonide and Entyvio), Psoriatic arthritis. Patient was diagnosis C. difficile colitis on 02/02/2019 and had presented to the emergency room on 02/07/2019 with increasing abdominal discomfort. Patient has attempted to continue with deficit, but has failed therapy as an outpatient. Patient was seen by a aesthetics instructor who had recommended that he go into the ER for further evaluation. Patient was admitted to hospitalist service for further evaluation and treatment. Gastric nephrology was called on consultation. Patient was seen and examined at the bedside. Patient continues to experience loose watery stools and has experienced one episode this morning. Patient reports some abdominal discomfort. Denies nausea, vomiting. Denies chest pain, shortness breath or palpitations. Patient has been in contact with Dr. Huber's office and was advised that his Humira will be delivered there. Objective: Vitals (See below) General: Lying in bed, no acute distress, comfortable, AAOx3 HEENT: NC, AT CVS: +S1S2 Lungs: Air entry remains fair bilaterally without auscultated rhonchi, wheezing or crackles Abdomen: Abdomen is soft, without any distention or tenderness appreciated Extremities: No edema is noted at bilateral lower extremities, - Calf tenderness Assessment and plan: Loose watery stools / Leukocytosis - possibly 2/2 Crohn's disease flare; po ssibly 2/2 Severe C. diff colitis - Patient has failed outpatient antibiotic therapy - Continues to experience loose watery stools - Physical without abdominal tenderness; remains hemodynamically stable - CT abdomen/pelvis 02/07: 1. Decreased colonic distention since 12/03/2018. There is also decreased colonic fluid although some colonic fluid is noted to the sigmoid suggesting diarrhea. There is new wall thickening of the distal sigmoid and rectum consistent with distal colitis or proctitis. 2. Decreased small bowel distention and air-fluid levels since the prior study. There is new small bowel wall thickening with mucosal enhancement and induration of supplying mesentery, particularly ileal segments in the pelvis consistent with enteritis and may reflect Crohn's disease. 3. Posterior right lower lobe pulmonary embolism which is similar to the prior study. 4. Mild bibasilar fibro-atelectatic change, left greater than right which is similar. 5. Mild fatty infiltration of the liver. 6. Mild pancreatic atrophy for age. 7. Borderline central mesenteric nodes which are increased and may be reactive. 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 Huber - s/p Vancomycin PO - c/w Solu-Medrol - c/w cholestyramine and Lomotil - Gastroenterology; Dr. Huber on consultation Crohn's disease - c/w Budesonide and Entyvio - Patient may require alternative immunotherapy as an outpatient - Patient has been approved for Humira and will have delivered to outpatient aesthetics instructor office today s/p High AG acidosis - likely 2/2 diarrhea, ketoacidosis, - Delta / Delta of >2 - Improving / Stable - Will again adjust IV fluids Chronic PE - Currently, patient does not report any significant respiratory difficulty - Hypercoagulability workup for anticoagulation duration pending - c/w Eliquis - Patient follows with Dr. Auguste as an outpatient; discussed case; advised Hypercoagulability workup Asthma - No evidence of exacerbation - c/w inhaled therapy is ordered Staph aureus pneumonia with cavitary lesion - Follows with Dr. Auguste Psoriatic arthritis DVT prophylaxis - c/w full anticoagulation with Eliquis Deposition: - Will likely receive Humira as an inpatient VS,Fishbone, I+O VS, Fishbone, I+O Laboratory Tests 02/18/19 04:49 Red Blood Count 3.81 L, Mean Corpuscular Volume 100.8 H, Mean Corpuscular H emoglobin 32.5, Mean Corpuscular Hemoglobin Concent 32.3, Red Cell Distribution Width 14.3, Neutrophils (%) (Auto) 87.5 H, Lymphocytes (%) (Auto) 6.0 L, Monocytes (%) (Auto) 2.7, Eosinophils (%) (Auto) 0.0, Basophils (%) (Auto) 0.3, Neutrophils # (Auto) 12.9 H, Lymphocytes # (Auto) 0.9 L, Monocytes # (Auto) 0.4, Eosinophils # (Auto) 0.0, Basophils # (Auto) 0.1, Calcium Level 8.3 L Vital Signs Date Time Temp Pulse Resp B/P (MAP) Pulse Ox O2 Delivery O2 Flow Rate FiO2 02/18/19 07:41 97.3 63 18 118/80 (93) 98 I&O- Last 24 Hours up to 6 AM 02/18/19 06:00 Intake Total 8855 ml Output Total 575 ml Balance 8280 ml EZEKIEL MARTINEZ MD Feb 18, 2019 10:50
[2019-02-18] MEDS ORDERED: [UNRECOGNIZED DRUG - OTHER] SQ ONE (11:15)
[2019-02-18] MEDS ORDERED: ADALIMUMAB SQ ONE (11:15)
[2019-02-18] MEDS: methylPREDNISolone INJ 40 MG/1 ML VIAL (J2920) IV SCH ×2 (11:20→23:55)
[2019-02-18] MEDS: SODIUM CHLORIDE 0.9% INJ 10 ML SYR IV PRN (11:21)
[2019-02-18 15:59] VITALS: BP 132/87
[2019-02-18 19:01] VITALS: BP 140/97
[2019-02-19] VITALS: BP 118/82
[2019-02-19] MEDS: D5W IV SCH ×3 (01:52→19:47)
[2019-02-19] MEDS: SODIUM BICARBONATE IV SCH ×3 (01:52→19:47)
[2019-02-19] MEDS: SODIUM CHLORIDE IV SCH ×3 (01:52→19:47)
[2019-02-19] MEDS: SODIUM CHLORIDE 0.9% INJ 10 ML SYR IV SCH ×3 (06:27→21:08)
[2019-02-19 07:10] LABS: BASO % 0.1 % (0.0-1.0); HEMATOCRIT 36.3 % (42.0-52.0); HEMOGLOBIN 11.5 g/dl (13.5-17.5); LYMPH # 0.8 10^3/uL (1.5-5.0); LYMPH % 7.2 % (24.0-44.0); MEAN CORPUSCULAR HEMOGLOBIN 31.5 pg (27.0-33.0); MEAN CORPUSCULAR HGB CONC 31.7 g/dl (32.0-36.5); MEAN CORPUSCULAR VOLUME 99.5 fl (80.0-96.0); MONO # 0.3 10^3/uL (0.0-0.8); MONO % 2.7 % (0.0-5.0); NEUTROPHILS # 9.9 10^3/uL (1.5-8.5); NEUTROPHILS % 87.7 % (36.0-66.0); PLATELET COUNT, AUTOMATED 309 10^3/uL (150-450); RED BLOOD COUNT 3.65 10^6/uL (4.30-6.10); WHITE BLOOD COUNT 11.3 10^3/uL (4.0-10.0)
[2019-02-19 07:11] LABS: BLOOD UREA NITROGEN 17 MG/DL (7-18); C REACTIVE PROTEIN QUANTITATIV < 0.30 MG/DL (0.00-0.30); CARBON DIOXIDE LEVEL 18 MEQ/L (21-32); CHLORIDE LEVEL 121 MEQ/L (98-107); CREATININE FOR GFR 1.13 MG/DL (0.70-1.30); GLOMERULAR FILTRATION RATE > 60.0 (>56); GLUCOSE, FASTING 123 MG/DL (70-100); MAGNESIUM LEVEL 1.8 MG/DL (1.8-2.4); POTASSIUM SERUM 3.7 MEQ/L (3.5-5.1); SODIUM LEVEL 147 MEQ/L (136-145)
[2019-02-19 08:00] VITALS: BP 118/74
--- NOTE | 2019-02-19 08:08 | IPNPDOC ---
Text Note Date of Service The patient was seen on 02/19/19. NOTE Subjective: -Persisting loose watery stools , without alison abdominal pain, nausea, vomiting Objective: Vitals (See below) General: Lying in bed, no acute distress, comfortable, AAOx3 HEENT: NC, AT CVS: +S1S2 Lungs: CTAB without wheezing or crackles Abdomen: Normoactive bowel sounds, soft, without any distention or tenderness Extremities: WWP, no edema, no tenderness Assessment and plan: 48-year-old with Crohn's disease (on Prednisone, Budesonide and Entyvio), Psoriatic arthritis, history of C. diff (with multiple hospitalizations), Chronic PE (on Eliquis), Asthma, Staph aureus pneumonia with cavitary lesion (Follows with Dr. Auguste), recently diagnosed with C. difficile colitis on 02/02/2019 and had presented to the emergency room on 02/07/2019 with increasing abdominal discomfort and admitted for failed outpatient therapy with ongoing persisting diarrhea Loose watery stools / Leukocytosis - possibly 2/2 Crohn's disease flare; possibly 2/2 Severe C. diff colitis - Patient has failed outpatient antibiotic therapy and continues to experience loose watery stools - CT abdomen/pelvis 02/07 showing new wall thickening of the distal sigmoid and rectum consistent with distal colitis or proctitis as well as new small bowel wall thickening with mucosal enhancement and induration of supplying mesentery, particularly ileal segments in the pelvis consistent with enteritis and may reflect Crohn's disease. 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 Huber - s/p Vancomycin PO - c/w Solu-Medrol - c/w cholestyramine and Lomotil - Gastroenterology; Dr. Huber on consultation Crohn's disease - c/w Budesonide and Entyvio - Started humira 02/18, Q every 15th day, next due 03/05 s/p High AG acidosis - likely 2/2 diarrhea, ketoacidosis, - Delta / Delta of >2 - Resolved Chronic PE - Currently, patient does not report any significant respiratory difficulty - Hypercoagulability workup for anticoagulation duration pending - c/w Eliquis - Patient follows with Dr. Auguste as an outpatient Asthma - No evidence of exacerbation - c/w inhaled therapy is ordered Staph aureus pneumonia with cavitary lesion - Follows with Dr. Auguste Psoriatic arthritis DVT prophylaxis - c/w full anticoagulation with Eliquis Deposition: - pending clinical improvement. VS,Fishbone, I+O VS, Fishbone, I+O Laboratory Tests 02/19/19 06:00 Red Blood Count 3.65 L, Mean Corpuscular Volume 99.5 H, Mean Corpuscular Hemoglobin 31.5, Mean Corpuscular Hemoglobin Concent 31.7 L, Red Cell Distribution Width 14.2, Neutrophils (%) (Auto) 87.7 H, Lymphocytes (%) (Auto) 7.2 L, Monocytes (%) (Auto) 2.7, Eosinophils (%) (Auto) 0.0, Basophils (%) (Auto) 0.1, Neutrophils # (Auto) 9.9 H, Lymphocytes # (Auto) 0.8 L, Monocytes # (Auto) 0.3, Eosinophils # (Auto) 0.0, Basophils # (Auto) 0.0, Calcium Level 8.0 L Vital Signs Date Time Temp Pulse Resp B/P (MAP) Pulse Ox O2 Delivery O2 Flow Rate FiO2 02/19/19 00:00 98.8 64 16 118/82 (94) 99 I&O- Last 24 Hours up to 6 AM 02/19/19 06:00 Intake Total 30732 ml Output Total 800 ml Balance 9220 ml SADIE DIXON MD Feb 19, 2019 08:08
[2019-02-19] MEDS: DICYCLOMINE 10 MG CAP PO SCH ×4 (08:20→19:46)
[2019-02-19] MEDS: LOMOTIL 2.5MG/0.025MG TABLET PO SCH ×3 (08:20→19:47)
[2019-02-19] MEDS: APIXABAN 5 MG TAB (ELIQUIS) PO SCH ×2 (08:21→19:46)
[2019-02-19] MEDS: CHOLESTYRAMINE 4 GM PWD PKT PO SCH ×4 (09:28→21:14)
[2019-02-19] MEDS: methylPREDNISolone INJ 40 MG/1 ML VIAL (J2920) IV SCH ×2 (09:59→22:12)
[2019-02-19] MEDS: SODIUM CHLORIDE 0.9% INJ 10 ML SYR IV PRN (10:04)
[2019-02-19] MEDS ORDERED: LOMOTIL 2.5MG/0.025MG TABLET PO SCH (13:00)
[2019-02-19 14:52] LABS: BLOOD UREA NITROGEN 16 MG/DL (7-18); CALCIUM LEVEL 8.8 MG/DL (8.5-10.1); CARBON DIOXIDE LEVEL 18 MEQ/L (21-32); CHLORIDE LEVEL 116 MEQ/L (98-107); CREATININE FOR GFR 1.14 MG/DL (0.70-1.30); GLOMERULAR FILTRATION RATE > 60.0 (>56); GLUCOSE, FASTING 96 MG/DL (70-100); POTASSIUM SERUM 3.5 MEQ/L (3.5-5.1); SODIUM LEVEL 144 MEQ/L (136-145)
[2019-02-19 16:00] VITALS: BP 126/74
[2019-02-19] MEDS ORDERED: POTASSIUM CHLORIDE 10 MEQ SR TABLET PO ONE (16:30)
[2019-02-19] MEDS: ACETAMINOPHEN TAB 650MG DOSE (2X325MG) PO PRN ×2 (17:10→22:51)
[2019-02-19] MEDS: PINK BISMUTH SUSP 524MG/30ML ORAL SYRINGE PO SCH ×2 (17:55→19:46)
[2019-02-19 20:00] VITALS: BP 144/77
[2019-02-19 23:14] LABS: CLOSTRIDIUM DIFFICILE PCR NEGATIVE (NEGATIVE)
[2019-02-20] VITALS: BP 119/69
[2019-02-20] MEDS: D5W IV SCH ×3 (00:50→20:49)
[2019-02-20] MEDS: SODIUM CHLORIDE IV SCH ×3 (00:50→20:49)
[2019-02-20] MEDS: SODIUM BICARBONATE IV SCH ×3 (00:50→20:49)
[2019-02-20 04:00] VITALS: BP 120/77
[2019-02-20] MEDS: SODIUM CHLORIDE 0.9% INJ 10 ML SYR IV SCH ×3 (05:18→22:07)
[2019-02-20 05:24] LABS: BASO % 0.2 % (0.0-1.0); HEMATOCRIT 33.8 % (42.0-52.0); HEMOGLOBIN 11.2 g/dl (13.5-17.5); LYMPH # 0.8 10^3/uL (1.5-5.0); LYMPH % 6.5 % (24.0-44.0); MEAN CORPUSCULAR HEMOGLOBIN 32.9 pg (27.0-33.0); MEAN CORPUSCULAR HGB CONC 33.1 g/dl (32.0-36.5); MEAN CORPUSCULAR VOLUME 99.4 fl (80.0-96.0); MONO # 0.3 10^3/uL (0.0-0.8); MONO % 2.2 % (0.0-5.0); NEUTROPHILS % 88.8 % (36.0-66.0); PLATELET COUNT, AUTOMATED 267 10^3/uL (150-450); WHITE BLOOD COUNT 12.4 10^3/uL (4.0-10.0)
[2019-02-20 05:44] LABS: BLOOD UREA NITROGEN 17 MG/DL (7-18); C REACTIVE PROTEIN QUANTITATIV < 0.30 MG/DL (0.00-0.30); CALCIUM LEVEL 7.4 MG/DL (8.5-10.1); CARBON DIOXIDE LEVEL 19 MEQ/L (21-32); CHLORIDE LEVEL 119 MEQ/L (98-107); CREATININE FOR GFR 1.03 MG/DL (0.70-1.30); GLOMERULAR FILTRATION RATE > 60.0 (>56); GLUCOSE, FASTING 126 MG/DL (70-100); MAGNESIUM LEVEL 1.8 MG/DL (1.8-2.4); POTASSIUM SERUM 3.6 MEQ/L (3.5-5.1); SODIUM LEVEL 146 MEQ/L (136-145)
[2019-02-20] MEDS: ACETAMINOPHEN TAB 650MG DOSE (2X325MG) PO PRN ×2 (06:01→17:35)
[2019-02-20 08:00] VITALS: BP 132/79
[2019-02-20] MEDS: APIXABAN 5 MG TAB (ELIQUIS) PO SCH ×2 (08:28→20:51)
[2019-02-20] MEDS: LOMOTIL 2.5MG/0.025MG TABLET PO SCH ×4 (08:28→20:50)
[2019-02-20] MEDS: PINK BISMUTH SUSP 524MG/30ML ORAL SYRINGE PO SCH ×4 (08:28→20:50)
[2019-02-20] MEDS: DICYCLOMINE 10 MG CAP PO SCH ×4 (08:28→20:51)
--- NOTE | 2019-02-20 09:17 | IPNPDOC ---
Text Note Date of Service The patient was seen on 02/20/19. NOTE Subjective: -Persisting loose watery stools with some mild improvement, without alison abdominal pain, nausea, vomiting Objective: Vitals (See below) General: Lying in bed, no acute distress, comfortable, AAOx3 HEENT: NC, AT CVS: +S1S2 Lungs: CTAB without wheezing or crackles Abdomen: Normoactive bowel sounds, soft, without any distention or tenderness Extremities: WWP, no edema, no tenderness Assessment and plan: 48-year-old with Crohn's disease (on Prednisone, Budesonide and Entyvio), Psoriatic arthritis, history of C. diff (with multiple hospitalizations), Chronic PE (on Eliquis), Asthma, Staph aureus pneumonia with cavitary lesion (Follows with Dr. Auguste), recently diagnosed with C. difficile colitis on 02/02/2019 and had presented to the emergency room on 02/07/2019 with increasing abdominal discomfort and admitted for failed outpatient therapy with ongoing persisting diarrhea Loose watery stools / Leukocytosis - possibly 2/2 Crohn's disease flare; possibly 2/2 Severe C. diff colitis - Patient has failed outpatient antibiotic therapy and continues to experience loose watery stools - CT abdomen/pelvis 02/07 showing new wall thickening of the distal sigmoid and rectum consistent with distal colitis or proctitis as well as new small bowel wall thickening with mucosal enhancement and induration of supplying mesentery, particularly ileal segments in the pelvis consistent with enteritis and may reflect Crohn's disease. 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 uHber - s/p Vancomycin PO - c/w Solu-Medrol - c/w cholestyramine and Lomotil - Gastroenterology; Dr. uHber on consultation - replete lytes PRN Crohn's disease - c/w Budesonide and Entyvio - Started humira 02/18, Q every 15th day, next due 03/05 s/p High AG acidosis - likely 2/2 diarrhea, ketoacidosis - Delta / Delta of >2 - Resolved, in the setting of bicarb gtt however because he would not absorb sodium bicarb tabs with ongoing profuse diarrhea - continue D51/2NS with bicarb Chronic PE - Currently, patient does not report any significant respiratory difficulty - Hypercoagulability workup for anticoagulation duration pending - c/w Eliquis - Patient follows with Dr. Auguste as an outpatient Asthma - No evidence of exacerbation - c/w inhaled therapy is ordered Staph aureus pneumonia with cavitary lesion - Follows with Dr. Auguste DVT prophylaxis - c/w full anticoagulation with Eliquis Deposition: - pending clinical improvement. VS,Fishbone, I+O VS, Fishbone, I+O Laboratory Tests 02/19/19 14:04 Calcium Level 8.8 02/20/19 05:05 Calcium Level 7.4 #L, Red Blood Count 3.40 L, Mean Corpuscular Volume 99.4 H, Mean Corpuscular Hemoglobin 32.9, Mean Corpuscular Hemoglobin Concent 33.1, Red Cell Distribution Width 13.8, Neutrophils (%) (Auto) 88.8 H, Lymphocytes (%) (Auto) 6.5 L, Monocytes (%) (Auto) 2.2, Eosinophils (%) (Auto) 0.0, Basophils (%) (Auto) 0.2, Neutrophils # (Auto) 11.0 H, Lymphocytes # (Auto) 0.8 L, Monocytes # (Auto) 0.3, Eosinophils # (Auto) 0.0, Basophils # (Auto) 0.0 Vital Signs Date Time Temp Pulse Resp B/P (MAP) Pulse Ox O2 Delivery O2 Flow Rate FiO2 02/20/19 08:00 98.1 73 18 132/79 (96) 98 I&O- Last 24 Hours up to 6 AM 02/20/19 06:00 Intake Total 6330 ml Output Total 1725 ml Balance 4605 ml SAIDE DIXON MD Feb 20, 2019 09:17
[2019-02-20] MEDS ORDERED: POTASSIUM CHLORIDE 10 MEQ SR TABLET PO ONE (10:00)
[2019-02-20] MEDS: methylPREDNISolone INJ 40 MG/1 ML VIAL (J2920) IV SCH ×2 (10:29→22:07)
[2019-02-20] MEDS: CHOLESTYRAMINE 4 GM PWD PKT PO SCH ×4 (10:30→22:07)
[2019-02-20] MEDS: SODIUM CHLORIDE 0.9% INJ 10 ML SYR IV PRN (10:30)
[2019-02-20 12:00] VITALS: BP 145/95
[2019-02-20] MEDS ORDERED: POLYVINYL ALCOHOL OPHTH SOLN 15 ML(LIQUITEARS) OU PRN (15:00)
[2019-02-20 16:00] VITALS: BP 127/92
[2019-02-20 20:00] VITALS: BP 153/90
[2019-02-21] VITALS (7 sets, daily range): BP systolic 112–133; BP diastolic 70–88
[2019-02-21] MEDS: SODIUM BICARBONATE IV SCH (04:20)
[2019-02-21] MEDS: ACETAMINOPHEN TAB 650MG DOSE (2X325MG) PO PRN ×2 (04:20→22:07)
[2019-02-21] MEDS: D5W IV SCH (04:20)
[2019-02-21] MEDS: SODIUM CHLORIDE IV SCH (04:20)
[2019-02-21 05:01] LABS: BASO % 0.1 % (0.0-1.0); HEMATOCRIT 32.9 % (42.0-52.0); HEMOGLOBIN 10.7 g/dl (13.5-17.5); LYMPH # 0.7 10^3/uL (1.5-5.0); LYMPH % 6.9 % (24.0-44.0); MEAN CORPUSCULAR HEMOGLOBIN 31.8 pg (27.0-33.0); MEAN CORPUSCULAR HGB CONC 32.5 g/dl (32.0-36.5); MEAN CORPUSCULAR VOLUME 97.9 fl (80.0-96.0); MONO # 0.3 10^3/uL (0.0-0.8); MONO % 2.7 % (0.0-5.0); NEUTROPHILS # 9.2 10^3/uL (1.5-8.5); NEUTROPHILS % 88.3 % (36.0-66.0); PLATELET COUNT, AUTOMATED 244 10^3/uL (150-450); RED BLOOD COUNT 3.36 10^6/uL (4.30-6.10); WHITE BLOOD COUNT 10.5 10^3/uL (4.0-10.0)
[2019-02-21 05:33] LABS: BLOOD UREA NITROGEN 13 MG/DL (7-18); CALCIUM LEVEL 7.4 MG/DL (8.5-10.1); CARBON DIOXIDE LEVEL 21 MEQ/L (21-32); CHLORIDE LEVEL 117 MEQ/L (98-107); CREATININE FOR GFR 0.91 MG/DL (0.70-1.30); GLOMERULAR FILTRATION RATE > 60.0 (>56); GLUCOSE, FASTING 111 MG/DL (70-100); MAGNESIUM LEVEL 1.7 MG/DL (1.8-2.4); POTASSIUM SERUM 3.4 MEQ/L (3.5-5.1); SODIUM LEVEL 147 MEQ/L (136-145)
[2019-02-21] MEDS: SODIUM CHLORIDE 0.9% INJ 10 ML SYR IV SCH ×3 (06:55→20:13)
[2019-02-21] MEDS: APIXABAN 5 MG TAB (ELIQUIS) PO SCH ×2 (09:26→20:01)
[2019-02-21] MEDS: LOMOTIL 2.5MG/0.025MG TABLET PO SCH ×4 (09:26→20:13)
[2019-02-21] MEDS: MAGNESIUM CHLORIDE 64 MG TABCR (SLO MAG) PO SCH (09:26)
[2019-02-21] MEDS: DICYCLOMINE 10 MG CAP PO SCH ×4 (09:26→20:01)
[2019-02-21] MEDS: PINK BISMUTH SUSP 524MG/30ML ORAL SYRINGE PO SCH ×4 (09:26→20:01)
[2019-02-21] MEDS: KCL 40MEQ in NS 1000ML 1,000 ML IV SCH ×2 (09:27→20:00)
[2019-02-21] MEDS: methylPREDNISolone INJ 40 MG/1 ML VIAL (J2920) IV SCH (10:58)
[2019-02-21] MEDS: CHOLESTYRAMINE 4 GM PWD PKT PO SCH ×4 (10:58→22:07)
--- NOTE | 2019-02-21 17:35 | IPNPDOC ---
Text Note Date of Service The patient was seen on 02/21/19. NOTE Objective: Patient continues to have lose stool, however he didn't have stool overnight. Patient denies fever, chills, nausea, vomiting, palpitations, dysuria Subjective: Objective: NAD Vitals (See below) General: Lying in bed, no acute distress, comfortable, AAOx3 HEENT: NC, AT CVS: +S1S2 Lungs: CTAB without wheezing or crackles Abdomen: Normoactive bowel sounds, soft, without any distention or tenderness Extremities: no edema, no tenderness Assessment and plan: 48-year-old with Crohn's disease (on Prednisone, Budesonide and Entyvio), Psoriatic arthritis, history of C. diff (with multiple hospitalizations), Chronic PE (on Eliquis), Asthma, Staph aureus pneumonia with cavitary lesion (Follows with Dr. Auguste), recently diagnosed with C. difficile colitis on 02/02/2019 and had presented to the emergency room on 02/07/2019 with increasing abdominal discomfort and admitted for failed outpatient therapy with ongoing persisting diarrhea Loose watery stools / Leukocytosis -Most likely 2/2 Crohn's disease flare. C. difficile negative - CT abdomen/pelvis 02/07 showing new wall thickening of the distal sigmoid and rectum consistent with distal colitis or proctitis as well as new small bowel wall thickening with mucosal enhancement and induration of supplying mesentery, particularly ileal segments in the pelvis consistent with enteritis and may reflect Crohn's disease. 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 Huber - s/p Vancomycin PO - c/w Solu-Medrol. Dr. Huber recommended to decrease the dose of Solu-Medrol to 40 mg IV daily - c/w cholestyramine and Lomotil - Gastroenterology; Dr. Huber on consultation - replete lytes PRN Crohn's disease - c/w Budesonide and Entyvio - Started humira 02/18, Q every 15th day, next due 03/05 s/p High AG acidosis - likely 2/2 diarrhea, ketoacidosis -resolved -bicarb drip dc Chronic PE - Currently, patient does not report any significant respiratory difficulty - Hypercoagulability workup for anticoagulation duration pending - c/w Eliquis - Patient follows with Dr. Auguste as an outpatient Asthma - No evidence of exacerbation - c/w inhaled therapy is ordered Staph aureus pneumonia with cavitary lesion - Follows with Dr. Auguste DVT prophylaxis - c/w full anticoagulation with Eliquis Deposition: - pending clinical improvement. VS,Fishbone, I+O VS, Fishbone, I+O Laboratory Tests 02/21/19 04:45 Red Blood Count 3.36 L, Mean Corpuscular Volume 97.9 H, Mean Corpuscular Hemoglobin 31.8, Mean Corpuscular Hemoglobin Concent 32.5, Red Cell Distribution Width 13.5, Neutrophils (%) (Auto) 88.3 H, Lymphocytes (%) (Auto) 6.9 L, Monocytes (%) (Auto) 2.7, Eosinophils (%) (Auto) 0.0, Basophils (%) (Auto) 0.1, Neutrophils # (Auto) 9.2 H, Lymphocytes # (Auto) 0.7 L, Monocytes # (Auto) 0.3, Eosinophils # (Auto) 0.0, Basophils # (Auto) 0.0, Calcium Level 7.4 L Vital Signs Date Time Temp Pulse Resp B/P (MAP) Pulse Ox O2 Delivery O2 Flow Rate FiO2 02/21/19 16:00 97.2 59 22 133/88 (103) 100 I&O- Last 24 Hours up to 6 AM 02/21/19 06:00 Intake Total 2710 ml Output Total 1200 ml Balance 1510 ml LAUREN GRANT DO Feb 21, 2019 17:35
[2019-02-21 20:19] LABS: BLOOD UREA NITROGEN 12 MG/DL (7-18); CALCIUM LEVEL 7.9 MG/DL (8.5-10.1); CARBON DIOXIDE LEVEL 20 MEQ/L (21-32); CHLORIDE LEVEL 120 MEQ/L (98-107); GLOMERULAR FILTRATION RATE > 60.0 (>56); GLUCOSE, FASTING 110 MG/DL (70-100); MAGNESIUM LEVEL 1.7 MG/DL (1.8-2.4); POTASSIUM SERUM 3.8 MEQ/L (3.5-5.1); SODIUM LEVEL 148 MEQ/L (136-145)
[2019-02-22 04:00] VITALS: BP 120/72
[2019-02-22] MEDS: SODIUM CHLORIDE 0.9% INJ 10 ML SYR IV SCH ×3 (05:19→21:12)
[2019-02-22 05:36] LABS: BASO % 0.1 % (0.0-1.0); EOS % 0.3 % (0.0-3.0); HEMATOCRIT 32.3 % (42.0-52.0); HEMOGLOBIN 10.5 g/dl (13.5-17.5); LYMPH # 1.7 10^3/uL (1.5-5.0); LYMPH % 16.5 % (24.0-44.0); MEAN CORPUSCULAR HEMOGLOBIN 32.8 pg (27.0-33.0); MEAN CORPUSCULAR HGB CONC 32.5 g/dl (32.0-36.5); MEAN CORPUSCULAR VOLUME 100.9 fl (80.0-96.0); MONO # 0.6 10^3/uL (0.0-0.8); MONO % 5.5 % (0.0-5.0); NEUTROPHILS # 7.6 10^3/uL (1.5-8.5); NEUTROPHILS % 75.8 % (36.0-66.0); PLATELET COUNT, AUTOMATED 224 10^3/uL (150-450); WHITE BLOOD COUNT 10.1 10^3/uL (4.0-10.0)
[2019-02-22 05:49] LABS: BLOOD UREA NITROGEN 10 MG/DL (7-18); CALCIUM LEVEL 7.3 MG/DL (8.5-10.1); CARBON DIOXIDE LEVEL 20 MEQ/L (21-32); CHLORIDE LEVEL 121 MEQ/L (98-107); CREATININE FOR GFR 0.79 MG/DL (0.70-1.30); GLOMERULAR FILTRATION RATE > 60.0 (>56); GLUCOSE, FASTING 72 MG/DL (70-100); MAGNESIUM LEVEL 1.7 MG/DL (1.8-2.4); POTASSIUM SERUM 3.5 MEQ/L (3.5-5.1); SODIUM LEVEL 147 MEQ/L (136-145)
[2019-02-22] MEDS: KCL 40MEQ in NS 1000ML 1,000 ML IV SCH (06:00)
[2019-02-22] MEDS: CEPACOL LOZENGE PO PRN ×2 (06:54→21:11)
[2019-02-22] MEDS ORDERED: MAGNESIUM CHLORIDE 64 MG TABCR (SLO MAG) PO ONE (09:00)
[2019-02-22] MEDS: APIXABAN 5 MG TAB (ELIQUIS) PO SCH ×2 (09:24→21:11)
[2019-02-22] MEDS: DICYCLOMINE 10 MG CAP PO SCH ×4 (09:24→21:10)
[2019-02-22] MEDS: LOMOTIL 2.5MG/0.025MG TABLET PO SCH ×4 (09:24→21:11)
[2019-02-22] MEDS: MAGNESIUM CHLORIDE 64 MG TABCR (SLO MAG) PO SCH (09:25)
[2019-02-22] MEDS: CHOLESTYRAMINE 4 GM PWD PKT PO SCH ×4 (09:25→21:11)
[2019-02-22] MEDS: methylPREDNISolone INJ 40 MG/1 ML VIAL (J2920) IV SCH (09:26)
[2019-02-22] MEDS: PINK BISMUTH SUSP 524MG/30ML ORAL SYRINGE PO SCH ×4 (09:30→21:11)
[2019-02-22] MEDS: KCL 40MEQ IN D5/NS 1000ML 1,000 ML IV SCH ×3 (09:31→21:10)
--- NOTE | 2019-02-22 12:52 | IPNPDOC ---
Text Note Date of Service The patient was seen on 02/22/19. NOTE Objective: Patient continues to have lose stool, 6 bowel movements for 24 hours . Patient denies fever, chills, nausea, vomiting, palpitations, dysuria Subjective: Objective: NAD Vitals (See below) General: Lying in bed, no acute distress, comfortable, AAOx3 HEENT: NC, AT CVS: +S1S2 Lungs: CTAB without wheezing or crackles Abdomen: Normoactive bowel sounds, soft, without any distention or tenderness Extremities: no edema, no tenderness Assessment and plan: 48-year-old with Crohn's disease (on Prednisone, Budesonide and Entyvio), Psoriatic arthritis, history of C. diff (with multiple hospitalizations), Chronic PE (on Eliquis), Asthma, Staph aureus pneumonia with cavitary lesion (Follows with Dr. Auguste), recently diagnosed with C. difficile colitis on 02/02/2019 and had presented to the emergency room on 02/07/2019 with increasing abdominal discomfort and admitted for failed outpatient therapy with ongoing persisting diarrhea Loose watery stools / Leukocytosis -Most likely 2/2 Crohn's disease flare. C. difficile negative - CT abdomen/pelvis 02/07 showing new wall thickening of the distal sigmoid and rectum consistent with distal colitis or proctitis as well as new small bowel wall thickening with mucosal enhancement and induration of supplying mesentery, particularly ileal segments in the pelvis consistent with enteritis and may reflect Crohn's disease. 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 Huber - s/p Vancomycin PO - c/w Solu-Medrol. Dr. Huber recommended to decrease the dose of Solu-Medrol to 40 mg IV daily. - c/w cholestyramine and Lomotil - Gastroenterology; Dr. Huber on consultation - replete lytes PRN Crohn's disease - c/w Budesonide and Entyvio - Started humira 02/18, Q every 15th day, next due 03/05 s/p High AG acidosis - likely 2/2 diarrhea, ketoacidosis -resolved -bicarb drip dc Chronic PE - Currently, patient does not report any significant respiratory difficulty - Hypercoagulability workup for anticoagulation duration pending - c/w Eliquis - Patient follows with Dr. Auguste as an outpatient Asthma - No evidence of exacerbation - c/w inhaled therapy is ordered Staph aureus pneumonia with cavitary lesion - Follows with Dr. Auguste Electrolytes imbalance Replaced VS,Fishbone, I+O VS, Fishbone, I+O Laboratory Tests 02/21/19 19:50 Calcium Level 7.9 L 02/22/19 05:18 Calcium Level 7.3 L, Red Blood Count 3.20 L, Mean Corpuscular Volume 100.9 H, Mean Corpuscular Hemoglobin 32.8, Mean Corpuscular Hemoglobin Concent 32.5, Red Cell Distribution Width 13.6, Neutrophils (%) (Auto) 75.8 H, Lymphocytes (%) (Auto) 16.5 L, Monocytes (%) (Auto) 5.5 H, Eosinophils (%) (Auto) 0.3, Basophils (%) (Auto) 0.1, Neutrophils # (Auto) 7.6, Lymphocytes # (Auto) 1.7, Monocytes # (Auto) 0.6, Eosinophils # (Auto) 0.0, Basophils # (Auto) 0.0 Vital Signs Date Time Temp Pulse Resp B/P (MAP) Pulse Ox O2 Delivery O2 Flow Rate FiO2 02/22/19 04:00 98.2 65 16 120/72 (88) 98 I&O- Last 24 Hours up to 6 AM 02/22/19 06:00 Intake Total 4930 ml Output Total 1175 ml Balance 3755 ml LAUREN GRANT DO Feb 22, 2019 12:52
[2019-02-22 14:00] VITALS: BP 126/82
[2019-02-22 22:00] VITALS: BP 128/85
[2019-02-23 00:11] LABS: ANCA-ATYPICAL <1:20 titer (Neg:<1:20); ANTI THROMBIN 3 ANTIGEN IMMUNO 82 % (72-124); ANTI THROMBIN 3 FUNCT ACTIVITY 111 % (75-135); CARDIOLIPIN IGA ANTIBODY <9 APL U/mL (0-11); CARDIOLIPIN IGG ANTIBODY <9 GPL U/mL (0-14); CARDIOLIPIN IGM ANTIBODY <9 MPL U/mL (0-12); CYTOPLASMIC NEUTROP AB ANCA-C <1:20 titer (Neg:<1:20); HOMOCYST(E)INE SERUM 10.8 umol/L (0.0-15.0); PERINUCLEAR AB ANCA-P <1:20 titer (Neg:<1:20); PROTEIN C ANTIGEN 138 % (60-150); PROTEIN S ANTIGEN FREE 71 % (57-157); PROTEIN S ANTIGEN TOTAL 71 % (60-150)
[2019-02-23] MEDS: KCL 40MEQ IN D5/NS 1000ML 1,000 ML IV SCH ×4 (03:15→19:17)
[2019-02-23] MEDS: ACETAMINOPHEN TAB 650MG DOSE (2X325MG) PO PRN ×2 (03:19→17:22)
[2019-02-23] MEDS: SODIUM CHLORIDE 0.9% INJ 10 ML SYR IV SCH ×3 (05:31→21:21)
[2019-02-23 05:57] LABS: BASO % 0.1 % (0.0-1.0); EOS % 0.3 % (0.0-3.0); HEMATOCRIT 33.9 % (42.0-52.0); HEMOGLOBIN 10.6 g/dl (13.5-17.5); LYMPH # 1.6 10^3/uL (1.5-5.0); LYMPH % 16.2 % (24.0-44.0); MEAN CORPUSCULAR HEMOGLOBIN 31.5 pg (27.0-33.0); MEAN CORPUSCULAR HGB CONC 31.3 g/dl (32.0-36.5); MEAN CORPUSCULAR VOLUME 100.6 fl (80.0-96.0); MONO # 0.6 10^3/uL (0.0-0.8); MONO % 5.8 % (0.0-5.0); NEUTROPHILS # 7.3 10^3/uL (1.5-8.5); NEUTROPHILS % 76.1 % (36.0-66.0); PLATELET COUNT, AUTOMATED 211 10^3/uL (150-450); RED BLOOD COUNT 3.37 10^6/uL (4.30-6.10); WHITE BLOOD COUNT 9.6 10^3/uL (4.0-10.0)
[2019-02-23 06:00] VITALS: BP 118/76
[2019-02-23 06:24] LABS: BLOOD UREA NITROGEN 6 MG/DL (7-18); CALCIUM LEVEL 7.3 MG/DL (8.5-10.1); CARBON DIOXIDE LEVEL 17 MEQ/L (21-32); CHLORIDE LEVEL 121 MEQ/L (98-107); CREATININE FOR GFR 0.72 MG/DL (0.70-1.30); GLOMERULAR FILTRATION RATE > 60.0 (>56); GLUCOSE, FASTING 84 MG/DL (70-100); MAGNESIUM LEVEL 1.6 MG/DL (1.8-2.4); POTASSIUM SERUM 3.9 MEQ/L (3.5-5.1); SODIUM LEVEL 146 MEQ/L (136-145)
[2019-02-23] MEDS ORDERED: MAG SULF 1GM/100ML (MAG RUN) 1 GM in IV 1 EA IV ONE (07:00)
[2019-02-23] MEDS: MAGNESIUM CHLORIDE 64 MG TABCR (SLO MAG) PO SCH (08:40)
[2019-02-23] MEDS: PINK BISMUTH SUSP 524MG/30ML ORAL SYRINGE PO SCH ×4 (08:41→20:55)
[2019-02-23] MEDS: LOMOTIL 2.5MG/0.025MG TABLET PO SCH ×4 (08:41→20:55)
[2019-02-23] MEDS: methylPREDNISolone INJ 40 MG/1 ML VIAL (J2920) IV SCH (08:41)
[2019-02-23] MEDS: CHOLESTYRAMINE 4 GM PWD PKT PO SCH ×4 (08:41→20:55)
[2019-02-23] MEDS: DICYCLOMINE 10 MG CAP PO SCH ×4 (08:41→20:55)
[2019-02-23] MEDS: APIXABAN 5 MG TAB (ELIQUIS) PO SCH ×2 (08:41→20:55)
--- NOTE | 2019-02-23 10:15 | IPNPDOC ---
Text Note Date of Service The patient was seen on 02/23/19. NOTE Objective: Patient continues to have lose stool, 8-10 bowel movements for 24 hours . Overnight patient had 1 bowel movement. Patient denies fever, chills, nausea, vomiting, palpitations, dysuria Subjective: Objective: NAD Vitals (See below) General: Lying in bed, no acute distress, comfortable, AAOx3 HEENT: NC, AT CVS: +S1S2 Lungs: CTAB without wheezing or crackles Abdomen: Normoactive bowel sounds, soft, without any distention or tenderness Extremities: no edema, no tenderness Assessment and plan: 48-year-old with Crohn's disease (on Prednisone, Budesonide and Entyvio), Psoriatic arthritis, history of C. diff (with multiple hospitalizations), Chronic PE (on Eliquis), Asthma, Staph aureus pneumonia with cavitary lesion (Follows with Dr. Auguste), recently diagnosed with C. difficile colitis on 02/02/2019 and had presented to the emergency room on 02/07/2019 with increasing abdominal discomfort and admitted for failed outpatient therapy with ongoing persisting diarrhea Loose watery stools / Leukocytosis -Most likely 2/2 Crohn's disease flare. C. difficile negative - CT abdomen/pelvis 02/07 showing new wall thickening of the distal sigmoid and rectum consistent with distal colitis or proctitis as well as new small bowel wall thickening with mucosal enhancement and induration of supplying mesentery, particularly ileal segments in the pelvis consistent with enteritis and may reflect Crohn's disease. 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 Huber - s/p Vancomycin PO - c/w Solu-Medrol. Dr. Huber recommended to decrease the dose of Solu-Medrol to 40 mg IV daily. - c/w cholestyramine and Lomotil - Gastroenterology; Dr. Huber on consultation - replete lytes PRN Crohn's disease - c/w Budesonide and Entyvio - Started humira 02/18, Q every 15th day, next due 03/05 s/p High AG acidosis - likely 2/2 diarrhea, ketoacidosis -resolved -bicarb drip dc Chronic PE - Currently, patient does not report any significant respiratory difficulty - c/w Eliquis - Patient follows with Dr. Auguste as an outpatient Asthma - No evidence of exacerbation - c/w inhaled therapy is ordered Staph aureus pneumonia with cavitary lesion - Follows with Dr. Auguste Electrolytes imbalance Replaced VS,Fishbone, I+O VS, Fishbone, I+O Laboratory Tests 02/23/19 05:35 Red Blood Count 3.37 L, Mean Corpuscular Volume 100.6 H, Mean Corpuscular Hemoglobin 31.5, Mean Corpuscular Hemoglobin Concent 31.3 L, Red Cell Distributi on Width 13.5, Neutrophils (%) (Auto) 76.1 H, Lymphocytes (%) (Auto) 16.2 L, Monocytes (%) (Auto) 5.8 H, Eosinophils (%) (Auto) 0.3, Basophils (%) (Auto) 0.1, Neutrophils # (Auto) 7.3, Lymphocytes # (Auto) 1.6, Monocytes # (Auto) 0.6, Eosinophils # (Auto) 0.0, Basophils # (Auto) 0.0, Calcium Level 7.3 L Vital Signs Date Time Temp Pulse Resp B/P (MAP) Pulse Ox O2 Delivery O2 Flow Rate FiO2 02/23/19 06:00 97.4 50 17 118/76 (90) 99 I&O- Last 24 Hours up to 6 AM 02/23/19 06:00 Intake Total 8150 ml Output Total 4775 ml Balance 3375 ml LAUREN GRANT DO Feb 23, 2019 10:15
[2019-02-23 14:20] VITALS: BP 127/81
[2019-02-23 20:00] VITALS: BP 130/73
[2019-02-23] MEDS: CEPACOL LOZENGE PO PRN (20:55)
[2019-02-24] MEDS: KCL 40MEQ IN D5/NS 1000ML 1,000 ML IV SCH (01:31)
[2019-02-24] MEDS: SODIUM CHLORIDE 0.9% INJ 10 ML SYR IV SCH (05:56)
[2019-02-24 06:00] VITALS: BP 129/74
[2019-02-24 06:16] LABS: HEMATOCRIT 33.5 % (42.0-52.0); HEMOGLOBIN 10.6 g/dl (13.5-17.5); MEAN CORPUSCULAR HEMOGLOBIN 31.8 pg (27.0-33.0); MEAN CORPUSCULAR HGB CONC 31.6 g/dl (32.0-36.5); MEAN CORPUSCULAR VOLUME 100.6 fl (80.0-96.0); PLATELET COUNT, AUTOMATED 197 10^3/uL (150-450); RED BLOOD COUNT 3.33 10^6/uL (4.30-6.10); WHITE BLOOD COUNT 10.3 10^3/uL (4.0-10.0)
[2019-02-24 06:35] LABS: BLOOD UREA NITROGEN 3 MG/DL (7-18); CALCIUM LEVEL 7.2 MG/DL (8.5-10.1); CARBON DIOXIDE LEVEL 19 MEQ/L (21-32); CHLORIDE LEVEL 122 MEQ/L (98-107); CREATININE FOR GFR 0.67 MG/DL (0.70-1.30); GLOMERULAR FILTRATION RATE > 60.0 (>56); GLUCOSE, FASTING 83 MG/DL (70-100); MAGNESIUM LEVEL 1.7 MG/DL (1.8-2.4); SODIUM LEVEL 147 MEQ/L (136-145)
[2019-02-24] MEDS: CEPACOL LOZENGE PO PRN (07:14)
[2019-02-24] MEDS: CHOLESTYRAMINE 4 GM PWD PKT PO SCH (09:00)
[2019-02-24] MEDS: MAGNESIUM CHLORIDE 64 MG TABCR (SLO MAG) PO SCH (09:26)
[2019-02-24] MEDS: PINK BISMUTH SUSP 524MG/30ML ORAL SYRINGE PO SCH (09:26)
[2019-02-24] MEDS: DICYCLOMINE 10 MG CAP PO SCH (09:27)
[2019-02-24] MEDS: LOMOTIL 2.5MG/0.025MG TABLET PO SCH (09:27)
[2019-02-24] MEDS: APIXABAN 5 MG TAB (ELIQUIS) PO SCH (09:27)
[2019-02-24] MEDS: methylPREDNISolone INJ 40 MG/1 ML VIAL (J2920) IV SCH (09:27)
[2019-02-24] MEDS ORDERED: PEPT262S PO (09:56)
[2019-02-24] MEDS ORDERED: MAGN64TASA PO (09:56)
[2019-02-24] MEDS ORDERED: PRED20TA PO (09:56)
[2019-02-24] MEDS ORDERED: CHOL4PW PO (09:56)
[2019-02-24] MEDS ORDERED: ELIQ5TAB PO (12:40)
[2019-02-24] MEDS ORDERED: DICY20TA11 PO (12:40)
--- NOTE | 2019-02-24 16:01 | DS.PDOC ---
Discharge Summary General Date of Admission Feb 11, 2019 at 23:21 Date of Discharge 02/24/19 Primary Care Physician: RONALDO FERNANDEZ MD Attending Physician: LAUREN GRANT DO Discharge Summary PROCEDURES PERFORMED DURING STAY: Fecal transplant ADMITTING DIAGNOSES: Loose watery stools / Leukocytosis Crohn's disease s/p High AG acidosis - likely 2/2 diarrhea, ketoacidosis Chronic PE Asthma Staph aureus pneumonia with cavitary lesion Electrolytes imbalance DISCHARGE DIAGNOSES: Loose watery stools / Leukocytosis Crohn's disease s/p High AG acidosis - likely 2/2 diarrhea, ketoacidosis Chronic PE Asthma Staph aureus pneumonia with cavitary lesion Electrolytes imbalance COMPLICATIONS/CHIEF COMPLAINT: C Difficile Diarrhea. HISTORY OF PRESENT ILLNESS: Patient is a 48-year-old male with a past medical history of idiopathic IBD and prolonged hospital stay, currently immunosuppressed with prednisone, budesonide and Enty [place], who presents to the ospital today for increasing weakness and fatigue. Patient was recently seen on Friday department on 02/07/19 for increasing abdominal cramping secondary to C. difficile infection diagnosed in 02/02/19. During patient's last regular visit, vitals were normal. WBC count of 6.8 with mild left shift., Low protein at 5.8, low albumin at 2.6, lipase 29. A repeat CT of the abdomen and pelvis was performed and evidence of a chronic pulmonary embolism was discovered. Patient was started on Eliquis. Also found on patient's imaging study, decreased colonic distention compared to previous studies, mild fatty liver infiltration and an area of nonspecific colitis. Upon presentation to the emergency department, patient reports 2 day history of increasing watery diarrhea. History of increasing watery stool since diagnosis of recent C. difficile on 02/02/19. He states that he has lost approximately 2 L of fluid over the previous 2 days and is reporting a 14 lb weight loss over the last two weeks. Tachycardic on intake vitals. CBC demonstrated a WBC of 20. Chemistries significant for anion gap of 26 and sodium of 132. HOSPITAL COURSE: : It was initially presumed that his acute exacerbation of abdominal pain and diarrhea was related to the new onset of Clostridium difficile colitis. It is of note that the patient has been doing quite well on Entyvio until approximately 3 weeks ago when he abruptly had deterioration of symptoms, at which time C. difficile was positive. He was treated with Dificid and then vancomycin without improvement. He had a couple of Clostridium difficile toxins performed, which were now negative albeit unreliable. He is status post empiric stool transplant 3 days ago for presumed C. difficile, however, has over the past 3 days not improved whatsoever. At this point, most likely that his symptoms are related to a true Crohn flare rather than persistent C. difficile. Patient received Solu-Medrol 40 mg intravenous (IV) q 12; With positive effect. Humira was started as well. During hospital stay the following issue addressed Loose watery stools / Leukocytosis -Most likely 2/2 Crohn's disease flare. C. difficile negative - CT abdomen/pelvis 02/07 showing new wall thickening of the distal sigmoid and rectum consistent with distal colitis or proctitis as well as new small bowel wall thickening with mucosal enhancement and induration of supplying mesentery, particularly ileal segments in the pelvis consistent with enteritis and may reflect Crohn's disease. 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 Huber - s/p Vancomycin PO - c/w Solu-Medrol. Dr. Huber recommended to decrease the dose of Solu-Medrol to 40 mg IV daily. - c/w cholestyramine and Lomotil - Gastroenterology; Dr. Huber on consultation - replete lytes PRN Crohn's disease - c/w Budesonide and Entyvio - Started humira 02/18, Q every 15th day, next due 03/05 s/p High AG acidosis - likely 2/2 diarrhea, ketoacidosis -resolved -bicarb drip dc Chronic PE - Currently, patient does not report any significant respiratory difficulty - c/w Eliquis - Patient follows with Dr. Auguste as an outpatient Asthma - No evidence of exacerbation - c/w inhaled therapy is ordered Staph aureus pneumonia with cavitary lesion - Follows with Dr. Auguste Electrolytes imbalance Replaced DISCHARGE MEDICATIONS: Please see below. ALLERGIES: Please see below. PHYSICAL EXAMINATION ON DISCHARGE: VITAL SIGNS: Please see below. General: Lying in bed, no acute distress, comfortable, AAOx3 HEENT: NC, AT CVS: +S1S2 Lungs: CTAB without wheezing or crackles Abdomen: Normoactive bowel sounds, soft, without any distention or tenderness Extremities: no edema, no tenderness LABORATORY DATA: Please see below. IMAGING: Comparison: Two-view chest 12/16/2018, portable chest 12/09/2018, CT chest 12/04/2018. Clinical history: Status post line placement. Right jugular central line catheter with tip in SVC near the right atrium. No widening of the mediastinum or apical pneumothorax on that right side. Lungs are adequately inflated. There is some linear fibrotic or atelectatic change in left base similar to previous radiographs. No definite effusion or infiltrate. Heart, mediastinal and hilar contours unchanged. Impression: 1. Right jugular central venous catheter with tip in SVC near the right atrium. No pneumothorax or widening of the mediastinum. No right effusion. 2. Minimal linear fibrotic or atelectatic change left lateral base. PROGNOSIS: Favorable ACTIVITY: As tolerated DIET: Regular diet DISCHARGE PLAN: Home DISPOSITION: 01 Home, Self-Care. DISCHARGE INSTRUCTIONS: take prescribed medications ITEMS TO FOLLOWUP ON ON OUTPATIENT: Follow-up with sales operations lead in today days Repeat BMP in 2 days DISCHARGE CONDITION: Stable TIME SPENT ON DISCHARGE: Greater than 40 minutes. Vital Signs/I&Os Vital Signs Date Time Temp Pulse Resp B/P (MAP) Pulse Ox O2 Delivery O2 Flow Rate FiO2 02/24/19 06:00 97.6 53 18 129/74 (92) 99 I&O- Last 24 Hours up to 6 AM 02/24/19 06:00 Intake Total 8220 ml Output Total 5500 ml Balance 2720 ml Laboratory Data Labs 24H Laboratory Tests 2 02/24/19 06:00: Nucleated Red Blood Cells % (auto) 0.0, Anion Gap 6L, Glomerular Filtration Rate > 60.0, Blood Urea Nitrogen 3L, Creatinine 0.67L, Sodium Level 147H, Potassium Level 4.0, Chloride Level 122H, Carbon Dioxide Level 19L, Calcium Level 7.2L, Magnesium Level 1.7L CBC/BMP Laboratory Tests 02/24/19 06:00 Red Blood Count 3.33 L, Mean Corpuscular Volume 100.6 H, Mean Corpuscular Hemoglobin 31.8, Mean Corpuscular Hemoglobin Concent 31.6 L, Red Cell Distribution Width 13.2, Calcium Level 7.2 L Microbiology Microbiology 02/18/19 Blood Culture - Final, Complete NO GROWTH AFTER 5 DAYS 02/18/19 Blood Culture - Final, Complete NO GROWTH AFTER 5 DAYS Discharge Medications Scheduled Apixaban (Eliquis) 5 Mg Tablet, 5 MG PO ASDIRECTED, (Reported) ISSUED ON 02/07/19: 10MG BID FOR 7 DAYS, THEN 5MG BID Apixaban (Eliquis) 5 Mg Tablet, 1 TAB PO BID Bismuth Subsalicylate (Pepto-Bismol) 262 Mg/15 Ml Oral.susp, 30 ML PO QID Cholestyramine (Cholestyramine Packet) 4 Gm Powd.pack, 4 GM PO QID Dicyclomine HCl (Dicyclomine HCl) 20 Mg Tablet, 20 MG PO Q6H, (Reported) Dicyclomine HCl (Dicyclomine HCl) 20 Mg Tablet, 20 MG PO QID for irritable bowel symptoms Magnesium Chloride (Mag64) 64 Mg Tablet.dr, 64 MG PO DAILY Multivitamin (Multivitamins) 1 Each Tablet, 1 TAB PO DAILY, (Reported) Prednisone (Prednisone) 20 Mg Tablet, 20 MG PO BID Vedolizumab (Entyvio) 300 Mg Vial, 300 MG IV ASDIRECTED, (Reported) EVERY 8 WEEKS Scheduled PRN Acetaminophen (Acetaminophen) 325 Mg Tablet, 650 MG PO Q6H PRN for PAIN, (Reported) Albuterol Sulfate (Proair Hfa) 8.5 Gm Hfa.aer.ad, 2 PUFF INH Q4H PRN for SHORTNESS OF BREATH, (Reported) Calcium Carbonate (Tums) 200 Mg Tab.chew, 1,500 MG PO QID PRN for INDIGESTION, (Reported) Allergies Coded Allergies: epinephrine (Verified Adverse Reaction, Intermediate, HIGH DOSE EPI - SEVERE SVT, 09/08/18) codeine (Verified Adverse Reaction, Mild, hallucinations, 09/08/18) LAUREN GRANT DO Feb 24, 2019 16:01
== END 2019-02-24 12:10 | disposition home or self-care (01) | DRG 386 ==
LOC: M ED 20:37 → M ED INP 23:21 → M PCU 02-12 16:15 → M MS5PR 02-22 05:55
PROVIDERS: ADMIT Internal Medicine; ATTEND Internal Medicine
PROC: 0DJD8ZZ Inspection of Lower Intestinal Tract, Via Natural or Artificial Opening Endoscopic (ICD-10-PCS; principal; 2019-02-12 07:56)
PROC: 02HV33Z Insertion of Infusion Device into Superior Vena Cava, Percutaneous Approach (ICD-10-PCS; 2019-02-13)
DX: K50.00 Crohn's disease of small intestine without complications (principal); I27.82 Chronic pulmonary embolism; E87.2 Acidosis; D72.829 Elevated white blood cell count, unspecified; J45.909 Unspecified asthma, uncomplicated; Z79.52 Long term (current) use of systemic steroids; Z79.01 Long term (current) use of anticoagulants; Z79.899 Other long term (current) drug therapy; Z88.5 Allergy status to narcotic agent; Z88.8 Allergy status to other drugs, medicaments and biological substances; Z87.891 Personal history of nicotine dependence; E86.0 Dehydration; L40.50 Arthropathic psoriasis, unspecified

== ENCOUNTER → 2019-02-26 | Outpatient (REF) | payer OTHER ==
[~2019-02-26] MED LIST changes: +BACITAB PO; +CHOL4PW PO; +DICY20TA11 PO; +FIRV25SO PO; +MAGN64TASA PO; +PEPT262S PO; +PRED10TA2 PO; +TUMS500C PO; +VANC125C3 PO
[2019-02-26 16:50] LABS: BASO % 0.1 % (0.0-1.0); HEMATOCRIT 37.5 % (42.0-52.0); HEMOGLOBIN 12.2 g/dl (13.5-17.5); LYMPH # 0.7 10^3/uL (1.5-5.0); LYMPH % 5.9 % (24.0-44.0); MEAN CORPUSCULAR HEMOGLOBIN 32.3 pg (27.0-33.0); MEAN CORPUSCULAR HGB CONC 32.5 g/dl (32.0-36.5); MEAN CORPUSCULAR VOLUME 99.2 fl (80.0-96.0); MONO # 0.4 10^3/uL (0.0-0.8); MONO % 3.1 % (0.0-5.0); NEUTROPHILS # 10.6 10^3/uL (1.5-8.5); NEUTROPHILS % 89.6 % (36.0-66.0); PLATELET COUNT, AUTOMATED 202 10^3/uL (150-450); RED BLOOD COUNT 3.78 10^6/uL (4.30-6.10); WHITE BLOOD COUNT 11.8 10^3/uL (4.0-10.0)
[2019-02-26 17:24] LABS: ALBUMIN 2.7 GM/DL (3.2-5.2); ALT/SGPT 50 U/L (12-78); BILIRUBIN,TOTAL 0.3 MG/DL (0.2-1.0); BLOOD UREA NITROGEN 13 MG/DL (7-18); CALCIUM LEVEL 7.2 MG/DL (8.5-10.1); CARBON DIOXIDE LEVEL 20 MEQ/L (21-32); CHLORIDE LEVEL 111 MEQ/L (98-107); CREATININE FOR GFR 0.85 MG/DL (0.70-1.30); GLOMERULAR FILTRATION RATE > 60.0 (>56); GLUCOSE, FASTING 125 MG/DL (70-100); POTASSIUM SERUM 4.4 MEQ/L (3.5-5.1); SODIUM LEVEL 139 MEQ/L (136-145); TOTAL PROTEIN 5.2 GM/DL (6.4-8.2); VITAMIN B12 LEVEL 215 PG/ML (247-911)
== END ==
LOC: M SFHCLERA 14:29
PROVIDERS: ATTEND Family Medicine
DX: D64.9 Anemia, unspecified (principal); E88.09 Other disorders of plasma-protein metabolism, not elsewhere classified; E53.8 Deficiency of other specified B group vitamins

== ENCOUNTER → 2019-03-03 | Outpatient (CLI) | payer OTHER ==
[2019-03-03 17:01] LABS: THYROID STIMULATING HORMONE 1.27 uIU/ML (0.358-3.740); THYROXINE (T4) 6.2 UG/DL (4.5-12.0)
[2019-03-11 00:16] LABS: BETA-2 GLYCOPROTEIN I ABY IGA <9 (0-25); BETA-2 GLYCOPROTEIN I ABY IGG <9 (0-20); BETA-2 GLYCOPROTEIN I ABY IGM <9 (0-32); PROTEIN C FUNCTIONAL ACTIVITY > 199 % (73-180); PROTEIN S ANTIGEN FREE 134 % (57-157); PROTEIN S ANTIGEN TOTAL 68 % (60-150); PROTEIN S FUNCTIONAL ACTIVITY 106 % (63-140)
== END ==
LOC: M LRY 12:28
PROVIDERS: ATTEND Internal Medicine Pulmonary Disease
DX: Z86.711 Personal history of pulmonary embolism (principal); K50.818 Crohn's disease of both small and large intestine with other complication

== ENCOUNTER → 2019-03-15 | Outpatient (REF) | payer OTHER ==
[2019-03-15 16:21] LABS: BASO % 0.5 % (0.0-1.0); EOS # 0.1 10^3/uL (0.0-0.5); EOS % 1.2 % (0.0-3.0); HEMATOCRIT 37.4 % (42.0-52.0); HEMOGLOBIN 11.6 g/dl (13.5-17.5); LYMPH % 15.1 % (24.0-44.0); MEAN CORPUSCULAR HEMOGLOBIN 31.7 pg (27.0-33.0); MEAN CORPUSCULAR VOLUME 102.2 fl (80.0-96.0); MONO # 0.4 10^3/uL (0.0-0.8); MONO % 5.8 % (0.0-5.0); NEUTROPHILS # 4.7 10^3/uL (1.5-8.5); PLATELET COUNT, AUTOMATED 169 10^3/uL (150-450); RED BLOOD COUNT 3.66 10^6/uL (4.30-6.10); WHITE BLOOD COUNT 6.4 10^3/uL (4.0-10.0)
[2019-03-15 16:51] LABS: ALBUMIN 3.4 GM/DL (3.2-5.2); ALT/SGPT 72 U/L (12-78); BILIRUBIN,TOTAL 0.3 MG/DL (0.2-1.0); BLOOD UREA NITROGEN 15 MG/DL (7-18); CALCIUM LEVEL 8.5 MG/DL (8.5-10.1); CARBON DIOXIDE LEVEL 22 MEQ/L (21-32); CHLORIDE LEVEL 113 MEQ/L (98-107); CREATININE FOR GFR 0.57 MG/DL (0.70-1.30); FERRITIN 112 NG/ML (26-388); GLOMERULAR FILTRATION RATE > 60.0 (>56); GLUCOSE, FASTING 98 MG/DL (70-100); IRON (FE) 149 UG/DL (65-175); MAGNESIUM LEVEL 1.8 MG/DL (1.8-2.4); PERCENT SATURATION 41.6 % (19.7-50.0); POTASSIUM SERUM 4.5 MEQ/L (3.5-5.1); SODIUM LEVEL 141 MEQ/L (136-145); TOTAL IRON BINDING CAPACITY 358 UG/DL (250-450); TOTAL PROTEIN 6.2 GM/DL (6.4-8.2)
[2019-03-15 16:59] LABS: TOTAL 25(OH) VITAMIN D 13.5 NG/ML (30.0-100.0)
== END ==
LOC: M SFHCLERA 13:40
PROVIDERS: ATTEND Family Medicine
DX: K50.10 Crohn's disease of large intestine without complications (principal)

== ENCOUNTER → 2019-03-24 | Outpatient (CLI) | payer OTHER ==
[~2019-03-24] MED LIST changes: +BENA2CRE3 TOP; +CVS2500C PO; +CVS27TAB2 PO; +CYAN100050 PO; +DIPH50CA PO; +HUMI40IN2 SQ; +HYOS0.374 PO; +IRON27TA2 PO; +SM A10CA PO; +VITA500045 PO
[2019-03-24 17:24] LABS: HEMOGLOBIN 16.9 g/dl (13.5-17.5); MEAN CORPUSCULAR HEMOGLOBIN 31.4 pg (27.0-33.0); MEAN CORPUSCULAR HGB CONC 31.9 g/dl (32.0-36.5); MEAN CORPUSCULAR VOLUME 98.5 fl (80.0-96.0); PLATELET COUNT, AUTOMATED 273 10^3/uL (150-450); RED BLOOD COUNT 5.38 10^6/uL (4.30-6.10); WHITE BLOOD COUNT 10.6 10^3/uL (4.0-10.0)
[2019-03-24 17:57] LABS: ALBUMIN 3.3 GM/DL (3.2-5.2); ALT/SGPT 37 U/L (12-78); BILIRUBIN,TOTAL 0.5 MG/DL (0.2-1.0); BLOOD UREA NITROGEN 17 MG/DL (7-18); C REACTIVE PROTEIN QUANTITATIV 5.59 MG/DL (0.00-0.30); CALCIUM LEVEL 8.3 MG/DL (8.5-10.1); CARBON DIOXIDE LEVEL 17 MEQ/L (21-32); CHLORIDE LEVEL 105 MEQ/L (98-107); GLOMERULAR FILTRATION RATE > 60.0 (>56); GLUCOSE, FASTING 118 MG/DL (70-100); POTASSIUM SERUM 4.2 MEQ/L (3.5-5.1); SODIUM LEVEL 133 MEQ/L (136-145); TOTAL PROTEIN 6.3 GM/DL (6.4-8.2)
[2019-03-24 18:49] LABS: ATYPICAL LYMPH 1 % (0-5); LYMPHOCYTES 13 % (16-44); MONOCYTES 4 % (0-5); NEUTROPHILS 43 % (28-66); PLATELET ESTIMATE NORMAL (NORMAL); POIKILOCYTOSIS 1+
[2019-03-24 18:50] LABS: BURR CELLS 1+
[2019-03-24 18:57] LABS: CLOSTRIDIUM DIFFICILE PCR NEGATIVE (NEGATIVE)
== END ==
LOC: M LRY 14:02
PROVIDERS: ATTEND Internal Medicine Gastroenterology
DX: K50.818 Crohn's disease of both small and large intestine with other complication (principal)

== ENCOUNTER 2019-03-26 12:28 | Inpatient (IN) | payer OTHER ==
[~2019-03-26] VITALS: Ht 190.5 cm; Wt 93.1 kg
[~2019-03-26 12:28] MED LIST changes: -BENA2CRE3 TOP; -CVS2500C PO; -CVS27TAB2 PO; -CYAN100050 PO; -DIPH50CA PO; -HUMI40IN2 SQ; -HYOS0.374 PO; -IRON27TA2 PO; -SM A10CA PO; -VITA500045 PO
[2019-03-26 13:19] LABS: BASO # 0.1 10^3/uL (0.0-0.2); BASO % 0.9 % (0.0-1.0); EOS % 0.1 % (0.0-3.0); HEMATOCRIT 52.3 % (42.0-52.0); HEMOGLOBIN 17.9 g/dl (13.5-17.5); LYMPH # 1.6 10^3/uL (1.5-5.0); LYMPH % 11.7 % (24.0-44.0); MEAN CORPUSCULAR HEMOGLOBIN 31.7 pg (27.0-33.0); MEAN CORPUSCULAR HGB CONC 34.2 g/dl (32.0-36.5); MEAN CORPUSCULAR VOLUME 92.6 fl (80.0-96.0); MONO # 1.1 10^3/uL (0.0-0.8); NEUTROPHILS # 10.4 10^3/uL (1.5-8.5); NEUTROPHILS % 75.3 % (36.0-66.0); PLATELET COUNT, AUTOMATED 327 10^3/uL (150-450); RED BLOOD COUNT 5.65 10^6/uL (4.30-6.10); WHITE BLOOD COUNT 13.8 10^3/uL (4.0-10.0)
[2019-03-26] MEDS ORDERED: BENA2CRE3 TOP (13:28)
[2019-03-26] MEDS ORDERED: CVS2500C PO (13:28)
[2019-03-26] MEDS ORDERED: VITA500045 PO (13:28)
[2019-03-26] MEDS ORDERED: HUMI40IN2 SQ (13:28)
[2019-03-26] MEDS ORDERED: SM A10CA PO (13:28)
[2019-03-26] MEDS ORDERED: IRON27TA2 PO (13:28)
[2019-03-26] MEDS ORDERED: DIPH50CA PO (13:28)
[2019-03-26] MEDS ORDERED: LOPE1CAP5 PO (13:28)
[2019-03-26] MEDS ORDERED: HYOS0.374 PO (13:28)
[2019-03-26] MEDS ORDERED: PENT500C PO (13:28)
[2019-03-26 13:36] LABS: ALBUMIN 3.7 GM/DL (3.2-5.2); ALT/SGPT 36 U/L (12-78); BILIRUBIN,DIRECT < 0.1 MG/DL (0.0-0.2); BILIRUBIN,TOTAL 0.4 MG/DL (0.2-1.0); BLOOD UREA NITROGEN 37 MG/DL (7-18); CALCIUM LEVEL 9.6 MG/DL (8.5-10.1); CARBON DIOXIDE LEVEL 16 MEQ/L (21-32); CHLORIDE LEVEL 100 MEQ/L (98-107); CREATININE FOR GFR 2.73 MG/DL (0.70-1.30); GLOMERULAR FILTRATION RATE 26.4 (>56); GLUCOSE, FASTING 126 MG/DL (70-100); LIPASE 35 U/L (73-393); POTASSIUM SERUM 4.3 MEQ/L (3.5-5.1); SODIUM LEVEL 127 MEQ/L (136-145); TOTAL PROTEIN 7.7 GM/DL (6.4-8.2)
[2019-03-26] MEDS ORDERED: diphenhydrAMINE CREAM 30GM TOP STA (14:10)
[2019-03-26] MEDS ORDERED: NS 1,000 ML IV ONE (14:15)
[2019-03-26] MEDS ORDERED: MORPHINE 2 MG/ML 1ML VIAL (J2270) IV ONE (14:30)
[2019-03-26] MEDS ORDERED: QUES4POW PO (16:16)
[2019-03-26] MEDS ORDERED: MAGN64TASA PO (16:16)
[2019-03-26] MEDS ORDERED: methylPREDNISolone INJ 125 MG/2 ML VIAL (J2930) IV STA (16:16)
[2019-03-26] MEDS ORDERED: CVS27TAB2 PO (16:16)
[2019-03-26] MEDS ORDERED: CYAN100050 PO (16:16)
[2019-03-26] MEDS ORDERED: PRED20TA PO (16:16)
[2019-03-26] MEDS ORDERED: ELIQ5TAB PO (16:16)
[2019-03-26] MEDS ORDERED: LIDOCAINE 1% MDV 20ML VIAL As Ordered ONE (16:22)
[2019-03-26] MEDS ORDERED: diphenhydrAMINE INJ 50MG/ML VIAL (J1200) IV STA (16:24)
[2019-03-26] MEDS: NS 1,000 ML IV SCH (16:30)
--- NOTE | 2019-03-26 17:33 | REP ---
Procedure: PICC line insertion with Dustin The procedure was performed under the direct supervision of Dr. Rao. The risks and benefits of the procedure were explained to the patient and informed consent was obtained. The right brachial vein was localized using ultrasound guidance. The skin was prepped and draped in a sterile fashion. 2% lidocaine was used as a local anesthetic. Using ultrasound guidance the brachial vein was cannulated and a 0.018 guidewire was inserted and advanced to the SVC using fluoroscopic guidance. The needle was removed and a 5.5 Estonian dilator and peel-away sheath was inserted over the guide wire. A 5.5 Estonian dual lumen catheter was cut to length of 44 cm. The dilator was removed and the catheter was inserted over the guide wire with the tip ending in the SVC. The peel-away sheath was removed and the catheter was flushed with heparinized saline as per Hospital protocol. The catheter was affixed to the skin and a sterile dressing was applied. The patient tolerated the procedure well and there were no immediate complications. 0.2 minutes of fluoro time was utilized for this procedure. Electronically Signed by ANASTASIA Matt 03/26/2019 05:15 P Electronically Signed by Chuck Rao MD 03/26/2019 05:24 P
[2019-03-26] MEDS ORDERED: oxyCODONE 5MG TAB PO PRN (18:45)
[2019-03-26] MEDS: MORPHINE 2 MG/ML 1ML VIAL (J2270) IV PRN (19:01)
[2019-03-26] MEDS ORDERED: ONDANSETRON 4MG/2ML VIAL (J2405) IV PRN (20:00)
--- NOTE | 2019-03-26 20:33 | HPEPDOC ---
General Date of Admission Mar 26, 2019 at 16:21 Date of Service: Mar 26, 2019 Chief Complaint The patient is a 48-year-old male admitted with a reason for visit of Acute Kidney Injury,Crohns Colitis. Source: Patient History of Present Illness 48year old male with PMH of Crohn's disease diagnosed in September 2018, Psoriatic arthritis, H/O Staphylococcus aureus pneumonia with cavitary lesions, Pulmonary embolism, Asthma, C. 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 pateint has been having increasing abdominal pain crampy in nature mostly on the left lower quadrant about 7/10 in intensity during cramps presentin liat the whole of the left side associated with watery diarrhea about 10 to 12 episodes a day without any blood in it. pateint went to see Dr Huber 2 days ago and his prednisone was doubled and also he was started on hyocyamine ER tablets which seemed to help a little. he has been having regular food without any nausea or vomiting. He had a c diff checked at the office on 03/24 which was negative. Today his blood work wa repeaded inthe office ad it showed dehydration and rise in creatinine with ongoing persistent severe diarrhea so was sent to [facility] ED. He was admitted for Crohn's disease flare and MOON and dehydration. Home Medications Scheduled Adalimumab (Humira(Cf) Pen) 40 Mg/0.4 Ml Pen.ij.kit, 40 MG SQ Q2WK, (Reported) EVERY OTHER FRIDAY Adalimumab (Humira Pen) 40 Mg/0.8 Ml Pen.ij.kit, 80 MG SC qwk Apixaban (Eliquis) 5 Mg Tablet, 5 MG PO BID, (Reported) Cholestyramine (with Sugar) (Questran Packet) 4 Gm Powd.pack, 4 GM PO TID, (Reported) Cyanocobalamin (Vitamin B-12) (Vitamin B-12) 1,000 Mcg Tablet, 1,000 MCG PO DAILY, (Reported) Ergocalciferol (Vitamin D2) (Vitamin D2) 50,000 Unit Capsule, 50,000 UNIT PO QWEEK, (Reported) TUESDAYS Ferrous Gluconate (Iron) 240 Mg Tablet, 27 MG PO DAILY, (Reported) Hyoscyamine Sulfate (Hyoscyamine Sulfate ER) 0.375 Mg Tab.er.12h, 0.375 MG PO Q12H, (Reported) Lactobacillus Acidophilus (Acidophilus) 1 Each Capsule, 1 CAP PO DAILY, (Reported) Magnesium Chloride (Mag64) 64 Mg Tablet.dr, 128 MG PO DAILY, (Reported) Mesalamine (Pentasa) 500 Mg Capsule.er, 500 MG PO QID, (Reported) Multivitamin (Multivitamins) 1 Each Tablet, 1 TAB PO DAILY, (Reported) Prednisone (Prednisone) 10 Mg Tablet, 10 MG PO TAPER 6tab [id number],then 5tab [id number],then 4tab [id number],then 3tab [id number],then 2tab [id number], then 1tab dailyxday Scheduled PRN Acetaminophen (Acetaminophen) 325 Mg Tablet, 650 MG PO Q6H PRN for PAIN, (Reported) Calcium Carbonate (Tums) 200 Mg Tab.chew, 1,500 MG PO QID PRN for INDIGESTION, (Reported) Diphenhydramine HCl (Diphenhydramine HCl) 50 Mg Capsule, 50 MG PO Q6H PRN for ITCHING, (Reported) Diphenhydramine HCl/Zinc Acet (Benadryl Itch Stopping Crm) 28.3 Gm Cream..g., 1 DOSE TOP TID PRN for RASH/ITCHING, (Reported) Loperamide HCl (Loperamide) 2 Mg Capsule, 4 MG PO Q6H PRN for DIARRHEA, (Reported) Allergies Coded Allergies: epinephrine (Verified Adverse Reaction, Intermediate, HIGH DOSE EPI - SEVERE SVT, 09/08/18) codeine (Verified Adverse Reaction, Mild, hallucinations, 09/08/18) Past Medical History Medical History Crohn's disease Psoriatic arthritis H/O Staphylococcus aureus pneumonia with cavitary lesions, follows with Dr. Auguste Pulmonary embolism Asthma C. 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 MOTHER: ALIVE, CHF, PULMONARY HYPERTENSION, [place], UNSPECIFIED HEART DISEASE Children: Alive, healthy Patient also reports a nephew that was also diagnosed with pulmonary emboli following a surgery. Social History * Smoker: former Smoker Alcohol: Denies Drugs: denies A-FIB/CHADSVASC A-FIB History Current/History of A-Fib/PAF?: No Review of Systems Constitutional: Denies: Chills, Fever, Night Sweats Eyes: Denies: Pain, Vision change ENT: Denies: Head Aches, Ear Pain, Dysphagia Skin: Reports: Rash (urticarial rash all over the body started 2 days ago.); Denies: Lesions, Breakdown Pulmonary: Denies: Dyspnea, Cough Cardiovascular: Denies: Chest Pain, Palpitations, Orthopnea, Paroxysmal Noc. Dyspnea, Lt Headedness Gastrointestinal: Reports: Abdominal Pain, Diarrhea; Denies: Nausea, Vomiting, Melena, Hematochezia Genitourinary: Denies: Dysuria, Frequency, Incontinence, Retention Musculoskeletal: Denies: Neck Pain, Back Pain, Joint Pain, Muscle Pain, Spasms Neurological: Denies: Weakness, Numbness, Change in speech, Confusion Physical Examination General Exam: Positive: Alert, Cooperative, No Acute Distress Eye Exam: Positive: PERRLA, Conjunctiva & lids normal, EOMI; Negative: Sclera icteric ENT Exam: Positive: Atraumatic, Mucous membr. moist/pink, Pharynx Normal Neck Exam: Positive: Supple; Negative: JVD, thyromegaly Chest Exam: Positive: Clear to auscultation, Normal air movement Abdomen Exam: Positive: BS Hyperactive, Soft, Tenderness (left lower abdomen) Extremity Exam: Positive: Normal pulses; Negative: Clubbing, Cyanosis, Edema Skin Exam: Positive: Rash Neuro Exam: Positive: Normal Gait, Normal Speech, Cranial Nerves 3-12 NL, Reflexes 2+ Vital Signs Vital Signs Date Time Temp Pulse Resp B/P (MAP) Pulse Ox O2 Delivery O2 Flow Rate FiO2 03/26/19 19:01 16 03/26/19 17:20 84 99 Room Air 03/26/19 16:48 97.9 03/26/19 15:25 152/98 (116) Laboratory Data Labs 24H Laboratory Tests 2 03/26/19 12:52: Immature Granulocyte % (Auto) 4.0H, Neutrophils (%) (Auto) 75.3H, Lymphocytes (%) (Auto) 11.7L, Monocytes (%) (Auto) 8.0H, Eosinophils (%) (Auto) 0.1, Basophils (%) (Auto) 0.9, Neutrophils # (Auto) 10.4H, Lymphocytes # (Auto) 1.6, Monocytes # (Auto) 1.1H, Eosinophils # (Auto) 0.0, Basophils # (Auto) 0.1, Nucleated Red Blood Cells % (auto) 0.0, Anion Gap 11, Glomerular Filtration Rate 26.4L, Calcium Level 9.6#, Total Bilirubin 0.4, Direct Bilirubin < 0.1, Aspartate Amino Transf (AST/SGOT) 18, Alanine Aminotransferase (ALT/SGPT) 36, Alkaline Phosphatase 96, Total Protein 7.7#, Albumin 3.7, Albumin/Globulin Ratio 0.93L, Lipase 35L 03/26/19 13:51: Urine Color KINA, Urine Appearance CLOUDYH, Urine pH 5.0, Urine Specific [place] 1.024, Urine Protein 2+H, Urine Glucose (UA) NEGATIVE, Urine Ketones TRACEH, Urine Blood NEGATIVE, Urine Nitrite NEGATIVE, Urine Bilirubin NEGATIVE, Urine Urobilinogen 0.2, Urine Leukocyte Esterase NEGATIVE, Urine WBC (Auto) 0, Urine RBC (Auto) 0, Urine Hyaline Casts (Auto) 2, Urine Bacteria (Auto) NEGATIVE, Urine Squamous Epithelial Cells 0, Urine Mucus (Auto) SMALL, Urine Sperm (Auto) CBC/BMP Laboratory Tests 03/26/19 12:52 Assessment/Plan 48year old male with PMH of Crohn's disease diagnosed in September 2018, Psoriatic arthritis, H/O Staphylococcus aureus pneumonia with cavitary lesions, Pulmonary embolism, Asthma, C. 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 patient has been having increasing abdominal pain crampy in nature mostly on the left lower quadrant about 7/10 in intensity during cramps presentin liat the whole of the left side associated with watery diarrhea about 10 to 12 episodes a day without any blood in it. pateint went to see Dr Huber 2 days ago and his prednisone was doubled and also he was started on hyocyamine ER tablets which seemed to help a little. he has been having regular food without any nausea or vomiting. He had a c diff checked at the office on 03/24 which was negative. Today his blood work wa repeaded inthe office ad it showed dehydration and rise in creatinine with ongoing persistent severe diarrhea so was sent to [facility] ED. He was admitted for Crohn's disease flare and MOON and dehydration. Crohn's disease flare will start on IV methyl pred, IVF, clear liquid diet pain control with tylenol , oxycodone and morphine prn will consider dcyclomine for cramps. continue mesalamine. will hold off on antibiotics at present due to recent h/o c diff and stool transplant 6 weeks ago. Patient has been started on Humira and before that was on entovio. MOON due to diarrhea and dehydration will continue with IVF Pulmonary embolism continue eliquis H/O C.diff continue lactobacillus VIT B12 and vit D def will continue cyanocobalamin, go Ergocalciferol on 03/23 and believes after that he got the rash. Plan / VTE VTE Prophylaxis Ordered?: Yes AMADEO SANTIZO MD Mar 26, 2019 20:33
[2019-03-26 22:00] VITALS: BP_SYST 164; BP_DIAS 80; BP_DIAS 92
[2019-03-26] MEDS ORDERED: diphenhydrAMINE INJ 50MG/ML VIAL (J1200) IV ONE (22:00)
[2019-03-26] MEDS: APIXABAN 5 MG TAB (ELIQUIS) PO SCH (22:02)
[2019-03-26] MEDS: MESALAMINE 250 MG CR CAP PO SCH (22:03)
[2019-03-26] MEDS: GASTROGRAFIN SOLUTION 30ML PO SCH ×2 (22:18→22:48)
[2019-03-27] MEDS: NS 1,000 ML IV SCH ×3 (02:30→20:33)
[2019-03-27] MEDS: MORPHINE 2 MG/ML 1ML VIAL (J2270) IV PRN ×2 (03:30→16:21)
[2019-03-27 06:00] VITALS: BP 132/88
[2019-03-27] MEDS: SODIUM CHLORIDE 0.9% INJ 10 ML SYR IV SCH ×2 (06:04→17:46)
[2019-03-27] MEDS: ACETAMINOPHEN 500 MG TAB PO PRN (06:09)
[2019-03-27 06:56] LABS: HEMATOCRIT 46.1 % (42.0-52.0); MEAN CORPUSCULAR HEMOGLOBIN 31.2 pg (27.0-33.0); MEAN CORPUSCULAR HGB CONC 32.5 g/dl (32.0-36.5); MEAN CORPUSCULAR VOLUME 95.8 fl (80.0-96.0); PLATELET COUNT, AUTOMATED 301 10^3/uL (150-450); RED BLOOD COUNT 4.81 10^6/uL (4.30-6.10)
[2019-03-27 07:12] LABS: CALCIUM LEVEL 8.2 MG/DL (8.5-10.1); CREATININE FOR GFR 2.1 MG/DL (0.70-1.30); GLOMERULAR FILTRATION RATE 35.8 (>56); POTASSIUM SERUM 3.8 MEQ/L (3.5-5.1)
[2019-03-27] MEDS ORDERED: NS 1,000 ML IV ONE ×2 (07:15→07:30)
[2019-03-27 07:36] LABS: ATYPICAL LYMPH 1 % (0-5); LYMPHOCYTES 17 % (16-44); METAMYELOCYTES 1 % (0-0); MONOCYTES 12 % (0-5); NEUTROPHILS 65 % (28-66); PLATELET ESTIMATE NORMAL (NORMAL)
[2019-03-27 07:40] LABS: OVALOCYTES 1+
--- NOTE | 2019-03-27 07:46 | REPVR ---
PROCEDURE INFORMATION: Exam: CT Abdomen And Pelvis Without Contrast Exam date and time: 03/26/2019 9:34 PM Clinical history: 48 years old, male; Abdominal pain; Generalized; Additional info: Only oral contrast TECHNIQUE: Imaging protocol: Computed tomography of the abdomen and pelvis without contrast. Radiation optimization: All CT scans at this facility use at least one of these dose optimization techniques: automated exposure control; mA and/or kV adjustment per patient size (includes targeted exams where dose is matched to clinical indication); or iterative reconstruction. COMPARISON: CT ABD/PEL IV CONTRAST ONLY 02/07/2019 3:30 AM FINDINGS: Lungs: There is left basilar discoid atelectasis versus scar. This is less prominent than the prior exam. Liver: The liver is heterogeneous and hypoattenuated. Gallbladder and bile ducts: The gallbladder is distended possibly with some sludge. There is no gallbladder wall thickening. Pancreas: The pancreas is fatty-replaced. Spleen: Normal. No splenomegaly. Adrenals: Normal. No mass. Kidneys and ureters: Normal. No hydronephrosis. Stomach and bowel: There is diffuse distention of the colon with fluid. Oral contrast is seen in proximal small bowel loops which are mildly distended up to 3.2 cm. Appendix: No evidence of appendicitis. Intraperitoneal space: Unremarkable. No free air. No significant fluid collection. Vasculature: Unremarkable. No abdominal aortic aneurysm. Lymph nodes: There is some subtle haziness within numerous diffuse shotty mesenteric lymph nodes. Bladder: Unremarkable as visualized. Reproductive: Unremarkable as visualized. Bones/joints: Unremarkable. No acute fracture. Soft tissues: Unremarkable. IMPRESSION: 1. Diffusely distended small and large bowel loops with fluid coupled with subtle mesenteric haziness and diffuse shotty mesenteric lymph nodes. The fluid could represent fluidy stool/diarrhea. Correlate clinically for enteritis. 2. Fatty infiltration of the liver. 3. Distended gallbladder possibly containing small amount of sludge. No CT evidence of cholecystitis. The Electronically signed by: Inder Pollack On 03/27/2019 07:45:39 AM
--- NOTE | 2019-03-27 10:15 | IPNPDOC ---
Subjective Date Seen The patient was seen on 03/27/19. Subjective Chief Complaint/HPI continues to have abdominal pain and diarrhea unchanged. also says had only 1 small urine output since admission. No fever . No blood in stool. no nausea, no appetite. Objective Physical Examination General Exam: Positive: Alert, Cooperative, No Acute Distress Eye Exam: Positive: PERRLA, Conjunctiva & lids normal, EOMI; Negative: Sclera icteric ENT Exam: Positive: Atraumatic, Mucous membr. moist/pink, Pharynx Normal Neck Exam: Positive: Supple; Negative: JVD, thyromegaly Chest Exam: Positive: Clear to auscultation, Normal air movement Abdomen Exam: Positive: BS Hyperactive, Soft, Tenderness (left lower abdomen, left luber region and left upper quadrant. ) Extremity Exam: Positive: Normal pulses; Negative: Clubbing, Cyanosis, Edema Skin Exam: Positive: Rash Neuro Exam: Positive: Normal Gait, Normal Speech, Cranial Nerves 3-12 NL, Reflexes 2+ Assessment /Plan Assessment 48year old male with PMH of Crohn's disease diagnosed in September 2018, Psoriatic arthritis, H/O Staphylococcus aureus pneumonia with cavitary lesions, Pulmonary embolism, Asthma, C. 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 patient has been having increasing abdominal pain crampy in nature mostly on the left lower quadrant about 7/10 in intensity during cramps presentin liat the whole of the left side associated with watery diarrhea about 10 to 12 episodes a day without any blood in it. pateint went to see Dr Huber 2 days ago and his prednisone was doubled and also he was started on hyocyamine ER tablets which seemed to help a little. he has been having regular food without any nausea or vomiting. He had a c diff checked at the office on 03/24 which was negative. Today his blood work wa repeaded inthe office ad it showed dehydration and rise in creatinine with ongoing persistent severe diarrhea so was sent to [facility] ED. He was admitted for Crohn's disease flare and MOON and dehydration. Crohn's disease flare will start on IV methyl pred, IVF, Keep NPO . Planned for no prep colonoscopy today by Dr Huber. pain control with tylenol , oxycodone and morphine prn, hyoscyamine for cramps. continue mesalamine. will hold off on antibiotics at present due to recent h/o c diff and stool transplant 6 weeks ago. Patient has been on Humira and before that was on entovio. MOON due to diarrhea and dehydration will continue with IVF Pulmonary embolism continue eliquis H/O C.diff continue lactobacillus VIT B12 and vit D def will continue cyanocobalamin, go Ergocalciferol on 03/23 and believes after that he got the rash. benadryl prn. Plan/VTE VTE Prophylaxis Ordered?: Yes VS, I&O, 24H, Fishbone Vital Signs/I&O Vital Signs Date Time Temp Pulse Resp B/P (MAP) Pulse Ox O2 Delivery O2 Flow Rate FiO2 03/27/19 06:00 98.2 87 18 132/88 (103) 100 Room Air I&O- Last 24 Hours up to 6 AM 03/27/19 05:59 Intake Total 240 ml Output Total 75 ml Balance 165 ml Laboratory Data 24H LABS Laboratory Tests 2 03/26/19 12:52: Immature Granulocyte % (Auto) 4.0H, Neutrophils (%) (Auto) 75.3H, Lymphocytes (%) (Auto) 11.7L, Monocytes (%) (Auto) 8.0H, Eosinophils (%) (Auto) 0.1, Basophils (%) (Auto) 0.9, Neutrophils # (Auto) 10.4H, Lymphocytes # (Auto) 1.6, Monocytes # (Auto) 1.1H, Eosinophils # (Auto) 0.0, Basophils # (Auto) 0.1, Nucleated Red Blood Cells % (auto) 0.0, Anion Gap 11, Glomerular Filtration Rate 26.4L, Calcium Level 9.6#, Total Bilirubin 0.4, Direct Bilirubin < 0.1, Aspartate Amino Transf (AST/SGOT) 18, Alanine Aminotransferase (ALT/SGPT) 36, A lkaline Phosphatase 96, Total Protein 7.7#, Albumin 3.7, Albumin/Globulin Ratio 0.93L, Lipase 35L 03/26/19 13:51: Urine Color KINA, Urine Appearance CLOUDYH, Urine pH 5.0, Urine Specific [place] 1.024, Urine Protein 2+H, Urine Glucose (UA) NEGATIVE, Urine Ketones TRACEH, Urine Blood NEGATIVE, Urine Nitrite NEGATIVE, Urine Bilirubin NEGATIVE, Urine Urobilinogen 0.2, Urine Leukocyte Esterase NEGATIVE, Urine WBC (Auto) 0, Urine RBC (Auto) 0, Urine Hyaline Casts (Auto) 2, Urine Bacteria (Auto) NEGATIVE, Urine Squamous Epithelial Cells 0, Urine Mucus (Auto) SMALL, Urine Sperm (Auto) 03/27/19 06:28: Immature Granulocyte % (Auto) , Nucleated Red Blood Cells % (auto) 0.0, Anion Gap 12, Glomerular Filtration Rate 35.8L, Calcium Level 8.2L, Neutrophils 65, Band Neutrophils 4, Lymphocytes (Manual) 17, Monocytes (Manual) 12H, Metamyelocytes 1H, Atypical Lymphocytes 1, Ovalocytes 1+, Platelet Estimate NORMAL CBC/BMP Laboratory Tests 03/26/19 12:52 03/27/19 06:28 AMADEO SANTIZO MD Mar 27, 2019 10:15
[2019-03-27] MEDS: LACTOBACILLUS ACIDOPHILUS CAP (BACID) PO SCH ×3 (10:37→17:47)
[2019-03-27] MEDS: CYANOCOBALAMIN 500 MCG TAB PO SCH (10:37)
[2019-03-27] MEDS: MESALAMINE 250 MG CR CAP PO SCH ×2 (10:37→13:39)
[2019-03-27] MEDS: APIXABAN 5 MG TAB (ELIQUIS) PO SCH ×2 (10:38→20:33)
[2019-03-27] MEDS ORDERED: diphenhydrAMINE INJ 50MG/ML VIAL (J1200) IV PRN (11:15)
[2019-03-27] MEDS: methylPREDNISolone INJ 125 MG/2 ML VIAL (J2930) IV SCH ×2 (11:53→23:55)
[2019-03-27] MEDS ORDERED: PROPOFOL 200 MG/20 ML VIAL As Ordered ONE ×2 (13:28→14:56)
[2019-03-27] MEDS ORDERED: LIDOCAINE 2% INJ 100 MG/5 ML SDV (FOR ANES.) As Ordered ONE (13:28)
[2019-03-27 14:00] VITALS: BP 136/82
[2019-03-27] MEDS ORDERED: SIMETHICONE 40MG/0.6ML DROPS 30ML As Ordered ONE (14:21)
--- NOTE | 2019-03-27 16:03 | ROOR ---
Patient Name: Sina Garcia Procedure Date: 03/27/2019 2:40 PM Date of : 1970 Age: 48 Gender: Male Note Status: Finalized Procedure: Colonoscopy Indications: Crohn's disease of the small bowel and colon, Disease activity assessment of Crohn's disease of the small bowel and colon Providers: Tian HUBER MD Referring MD: Brandon FERNANDEZ MD, 2. Inpatient 2. Inpatient Requesting Provider: Medicines: Monitored Anesthesia Care Complications: No immediate complications. Procedure: Pre-Anesthesia Assessment: - The heart rate, respiratory rate, oxygen saturations, blood pressure, adequacy of pulmonary ventilation, and response to care were monitored throughout the procedure. The Colonoscope was introduced through the anus and advanced to 15 cm into the ileum. The colonoscopy was performed without difficulty. The patient tolerated the procedure well. The quality of the bowel preparation was fair (Unprepped colonoscopy to assess disease activity). No bowel preparation was given prior to the procedure. The quality of visualization was adequate. Findings: The perianal and digital rectal examinations were normal. Inflammation characterized by altered vascularity, erythema and mucus was found in a continuous and circumferential pattern from the anus to the terminal ileum. No sites were spared. (Inflammation is continuous without deep ulcers or any skip lesions found from the anus to the terminal ileum). This was moderate in severity, and when compared to previous examinations, the findings are unchanged. Biopsies were taken with a cold forceps for histology. Impression: - Inflammatory bowel disease. Crohn's disease (vs overlap syndrome), with ileitis and colitis. This was moderate in severity. Biopsied. Recommendation: - NOTE: I will be out of town for the weekend and all of next week. Please discuss urgent issues with Dr Zurita. - Low residue diet. - Lomotil 2 tablets PO TID. - Return patient to [facility] for ongoing care. - Continue solumedrol for now, transition to prednisone 40 mg q day once symptoms improving. - Stop Pentasa with renal dysfunction-(questionable benefit in crohns disease). - Await results of otupatient labs (adalimumab level/neutralizing Ab)-- Increase Humira dosing VS change to alternative.) Tian Huber MD Tian HUBER MD 03/27/2019 4:02:19 PM Electronically signed by Tian HUBER MD Number of Addenda: 0 Note Initiated On: 03/27/2019 2:40 PM Estimated Blood Loss: Estimated blood loss: none.
[2019-03-27] MEDS: LOMOTIL 2.5MG/0.025MG TABLET PO SCH (20:33)
[2019-03-27] MEDS: diphenhydrAMINE 25 MG CAP PO PRN (20:33)
[2019-03-27 22:00] VITALS: BP 142/90
[2019-03-28] MEDS: diphenhydrAMINE 25 MG CAP PO PRN ×2 (03:24→09:34)
[2019-03-28] MEDS: SODIUM CHLORIDE 0.9% INJ 10 ML SYR IV SCH ×2 (05:52→18:17)
[2019-03-28] MEDS: NS 1,000 ML IV SCH ×2 (05:56→16:58)
[2019-03-28 06:00] VITALS: BP 138/82
[2019-03-28 06:27] LABS: BASO # 0.1 10^3/uL (0.0-0.2); BASO % 0.5 % (0.0-1.0); HEMATOCRIT 40.2 % (42.0-52.0); HEMOGLOBIN 13.5 g/dl (13.5-17.5); LYMPH # 0.7 10^3/uL (1.5-5.0); LYMPH % 5.6 % (24.0-44.0); MEAN CORPUSCULAR HEMOGLOBIN 31.5 pg (27.0-33.0); MEAN CORPUSCULAR HGB CONC 33.6 g/dl (32.0-36.5); MEAN CORPUSCULAR VOLUME 93.7 fl (80.0-96.0); MONO # 0.5 10^3/uL (0.0-0.8); MONO % 3.7 % (0.0-5.0); NEUTROPHILS # 11.2 10^3/uL (1.5-8.5); NEUTROPHILS % 85.2 % (36.0-66.0); PLATELET COUNT, AUTOMATED 284 10^3/uL (150-450); RED BLOOD COUNT 4.29 10^6/uL (4.30-6.10); WHITE BLOOD COUNT 13.1 10^3/uL (4.0-10.0)
[2019-03-28 06:50] LABS: BLOOD UREA NITROGEN 32 MG/DL (7-18); CALCIUM LEVEL 7.8 MG/DL (8.5-10.1); CARBON DIOXIDE LEVEL 14 MEQ/L (21-32); CHLORIDE LEVEL 113 MEQ/L (98-107); CREATININE FOR GFR 1.12 MG/DL (0.70-1.30); GLOMERULAR FILTRATION RATE > 60.0 (>56); GLUCOSE, FASTING 125 MG/DL (70-100); POTASSIUM SERUM 3.6 MEQ/L (3.5-5.1); SODIUM LEVEL 135 MEQ/L (136-145)
[2019-03-28] MEDS: APIXABAN 5 MG TAB (ELIQUIS) PO SCH ×2 (09:26→21:44)
[2019-03-28] MEDS: LOMOTIL 2.5MG/0.025MG TABLET PO SCH ×3 (09:26→21:44)
[2019-03-28] MEDS: CYANOCOBALAMIN 500 MCG TAB PO SCH (09:26)
[2019-03-28] MEDS: LACTOBACILLUS ACIDOPHILUS CAP (BACID) PO SCH ×3 (09:26→18:17)
--- NOTE | 2019-03-28 09:40 | IPNPDOC ---
Subjective Date Seen The patient was seen on 03/28/19. Subjective Chief Complaint/HPI continues to have diarreha . had 4 episodes during the night. pain is controlled. need one morphine last ngiht after the colonoscopy Objective Physical Examination General Exam: Positive: Alert, Cooperative, No Acute Distress Eye Exam: Positive: PERRLA, Conjunctiva & lids normal, EOMI; Negative: Sclera icteric ENT Exam: Positive: Atraumatic, Mucous membr. moist/pink, Pharynx Normal Neck Exam: Positive: Supple; Negative: JVD, thyromegaly Chest Exam: Positive: Clear to auscultation, Normal air movement Abdomen Exam: Positive: BS Hyperactive, Soft, Tenderness (left lower abdomen, left luber region and left upper quadrant. ) Extremity Exam: Positive: Normal pulses; Negative: Clubbing, Cyanosis, Edema Skin Exam: Positive: Rash Neuro Exam: Positive: Normal Gait, Normal Speech, Cranial Nerves 3-12 NL, Reflexes 2+ Assessment /Plan Assessment 48year old male with PMH of Crohn's disease diagnosed in September 2018, Psoriatic arthritis, H/O Staphylococcus aureus pneumonia with cavitary lesions, Pulmonary embolism, Asthma, C. 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 patient has been having increasing abdominal pain crampy in nature mostly on the left lower quadrant about 7/10 in intensity during cramps presentin liat the whole of the left side associated with watery diarrhea about 10 to 12 episodes a day without any blood in it. patient went to see Dr Huber 2 days ago and his prednisone was doubled and also he was started on hyocyamine ER tablets which seemed to help a little. he has been having regular food without any nausea or vomiting. He had a c diff checked at the office on 03/24 which was negative. Today his blood work wa repeaded inthe office ad it showed dehydration and rise in creatinine with ongoing persistent severe diarrhea so was sent to [facility] ED. He was admitted for Crohn's disease flare and MOON and dehydration. Inflammatory Bowel disease flare with ileitis and colitis. This was moderate in severity as per colonoscopy by Dr Huber Crohn's disease Vs overlap syndrome continue on IV methyl pred, IVF, will change to oral pred 40 daily once diarrhea is better. Low residue diet pain control with tylenol , oxycodone and morphine prn, hyoscyamine for cramps lomotil will hold off on antibiotics at present due to recent h/o c diff and stool transplant 6 weeks ago. Patient has been on Humira and before that was on entyvio. MOON now resolved. due to diarrhea and dehydration will continue with IVF Pulmonary embolism continue eliquis H/O C.diff continue lactobacillus VIT B12 and vit D def will continue cyanocobalamin, got Ergocalciferol on 03/23 and believes after that he got the rash. benadryl prn. VS, I&O, 24H, Fishbone Vital Signs/I&O Vital Signs Date Time Temp Pulse Resp B/P (MAP) Pulse Ox O2 Delivery O2 Flow Rate FiO2 03/28/19 06:00 97.8 75 18 138/82 (100) 99 Room Air I&O- Last 24 Hours up to 6 AM 03/28/19 05:59 Intake Total 5970 ml Output Total 450 ml Balance 5520 ml Laboratory Data 24H LABS Laboratory Tests 2 03/28/19 06:00: Immature Granulocyte % (Auto) 5.0H, Neutrophils (%) (Auto) 85.2H, Lymphocytes (%) (Auto) 5.6L, Monocytes (%) (Auto) 3.7, Eosinophils (%) (Auto) 0.0, Basophils (%) (Auto) 0.5, Neutrophils # (Auto) 11.2H, Lymphocytes # (Auto) 0.7L, Monocytes # (Auto) 0.5, Eosinophils # (Auto) 0.0, Basophils # (Auto) 0.1, Nucleated Red Blood Cells % (auto) 0.0, Anion Gap 8, Glomerular Filtration Rate > 60.0, C alcium Level 7.8L CBC/BMP Laboratory Tests 03/28/19 06:00 AMADEO SANTIZO MD Mar 28, 2019 09:40
[2019-03-28] MEDS: methylPREDNISolone INJ 125 MG/2 ML VIAL (J2930) IV SCH (11:55)
[2019-03-28 14:00] VITALS: BP 138/88
[2019-03-28 22:00] VITALS: BP 134/84
[2019-03-29] MEDS: methylPREDNISolone INJ 125 MG/2 ML VIAL (J2930) IV SCH ×2 (00:21→12:17)
[2019-03-29] MEDS: NS 1,000 ML IV SCH ×2 (04:31→12:16)
[2019-03-29] MEDS: SODIUM CHLORIDE 0.9% INJ 10 ML SYR IV SCH ×2 (05:49→16:55)
[2019-03-29 06:00] VITALS: BP 146/86
[2019-03-29] MEDS: SODIUM CHLORIDE 0.9% INJ 10 ML SYR IV PRN (06:42)
[2019-03-29 07:00] LABS: HEMATOCRIT 41.1 % (42.0-52.0); HEMOGLOBIN 13.6 g/dl (13.5-17.5); MEAN CORPUSCULAR HEMOGLOBIN 31.7 pg (27.0-33.0); MEAN CORPUSCULAR HGB CONC 33.1 g/dl (32.0-36.5); MEAN CORPUSCULAR VOLUME 95.8 fl (80.0-96.0); PLATELET COUNT, AUTOMATED 273 10^3/uL (150-450); RED BLOOD COUNT 4.29 10^6/uL (4.30-6.10); WHITE BLOOD COUNT 12.5 10^3/uL (4.0-10.0)
[2019-03-29 07:13] LABS: BLOOD UREA NITROGEN 31 MG/DL (7-18); CALCIUM LEVEL 8.3 MG/DL (8.5-10.1); CARBON DIOXIDE LEVEL 12 MEQ/L (21-32); CHLORIDE LEVEL 115 MEQ/L (98-107); CREATININE FOR GFR 1.07 MG/DL (0.70-1.30); GLOMERULAR FILTRATION RATE > 60.0 (>56); GLUCOSE, FASTING 127 MG/DL (70-100); POTASSIUM SERUM 3.8 MEQ/L (3.5-5.1); SODIUM LEVEL 137 MEQ/L (136-145)
[2019-03-29 07:52] LABS: ATYPICAL LYMPH 2 % (0-5); LYMPHOCYTES 8 % (16-44); METAMYELOCYTES 2 % (0-0); MONOCYTES 5 % (0-5); MYELOCYTES 1 % (0-0); NEUTROPHILS 80 % (28-66); PLATELET ESTIMATE NORMAL (NORMAL)
[2019-03-29 07:53] LABS: ANISOCYTOSIS 1+
[2019-03-29] MEDS: LOMOTIL 2.5MG/0.025MG TABLET PO SCH ×3 (08:17→20:08)
[2019-03-29] MEDS: LACTOBACILLUS ACIDOPHILUS CAP (BACID) PO SCH ×3 (08:17→16:54)
[2019-03-29] MEDS: APIXABAN 5 MG TAB (ELIQUIS) PO SCH ×2 (08:17→20:08)
[2019-03-29] MEDS: CYANOCOBALAMIN 500 MCG TAB PO SCH (08:17)
[2019-03-29] MEDS: ACETAMINOPHEN 500 MG TAB PO PRN (08:25)
--- NOTE | 2019-03-29 13:35 | IPNPDOC ---
Subjective Date Seen The patient was seen on 03/29/19. Subjective Chief Complaint/HPI continues to have diarrhea, no blood in it, abdominal pain and cramps are controlled. Objective Physical Examination General Exam: Positive: Alert, Cooperative, No Acute Distress Eye Exam: Positive: PERRLA, Conjunctiva & lids normal, EOMI; Negative: Sclera icteric ENT Exam: Positive: Atraumatic, Mucous membr. moist/pink, Pharynx Normal Neck Exam: Positive: Supple; Negative: JVD, thyromegaly Chest Exam: Positive: Clear to auscultation, Normal air movement Abdomen Exam: Positive: BS Hyperactive, Soft, Tenderness (left lower abdomen, left luber region and left upper quadrant. ) Extremity Exam: Positive: Normal pulses; Negative: Clubbing, Cyanosis, Edema Skin Exam: Positive: Rash Neuro Exam: Positive: Normal Gait, Normal Speech, Cranial Nerves 3-12 NL, Reflexes 2+ Assessment /Plan Assessment 48year old male with PMH of Crohn's disease diagnosed in September 2018, Psoriatic arthritis, H/O Staphylococcus aureus pneumonia with cavitary lesions, Pulmonary embolism, Asthma, C. 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 patient has been having increasing abdominal pain crampy in nature mostly on the left lower quadrant about 7/10 in intensity during cramps presenting on the whole of the left side associated with watery diarrhea about 10 to 12 episodes a day without any blood in it. patient went to see Dr Huber 2 days ago and his prednisone was doubled and also he was started on hyocyamine ER tablets which seemed to help a little. he has been having regular food without any nausea or vomiting. He had a c diff checked at the office on 03/24 which was negative. Today his blood work was repealed in the office ad it showed dehydration and rise in creatinine with ongoing persistent severe diarrhea so was sent to the [facility] ED. He was admitted for Crohn's disease flare and MOON and dehydration. Inflammatory Bowel disease flare with ileitis and colitis. This was moderate in severity as per colonoscopy by Dr Huber Crohn's disease Vs overlap syndrome continue on IV methyl pred, IVF, will change to oral pred 40 daily once diarrhea is better. Low residue diet pain control with tylenol , oxycodone and morphine prn, hyoscyamine for cramps lomotil will hold off on antibiotics at present due to recent h/o c diff and stool transplant 6 weeks ago. Patient has been on Humira and before that was on entyvio. MOON now resolved. due to diarrhea and dehydration will continue with IVF Pulmonary embolism continue eliquis H/O C.diff continue lactobacillus VIT B12 and vit D def will continue cyanocobalamin, got Ergocalciferol on 03/23 and believes after that he got the rash. benadryl prn. Plan/VTE VTE Prophylaxis Ordered?: Yes VS, I&O, 24H, Fishbone Vital Signs/I&O Vital Signs Date Time Temp Pulse Resp B/P (MAP) Pulse Ox O2 Delivery O2 Flow Rate FiO2 03/29/19 06:00 98.0 82 18 146/86 (106) 99 Room Air I&O- Last 24 Hours up to 6 AM 03/29/19 05:59 Intake Total 4630 ml Output Total 725 ml Balance 3905 ml Laboratory Data 24H LABS Laboratory Tests 2 03/29/19 06:40: Immature Granulocyte % (Auto) , Nucleated Red Blood Cells % (auto) 0.0, Neutrophils 80H, Band Neutrophils 2, Lymphocytes (Manual) 8L, Monocytes (Manual) 5, Metamyelocytes 2H, Myelocytes 1H, Atypical Lymphocytes 2, Anisocytosis 1+, Macrocytosis 1+, Platelet Estimate NORMAL, Anion Gap 10, Glomerular Filtration Rate > 60.0, Calcium Level 8.3L CBC/BMP Laboratory Tests 03/29/19 06:40 AMADEO SANTIZO MD Mar 29, 2019 13:35
[2019-03-29 14:00] VITALS: BP 154/82
[2019-03-29] MEDS ORDERED: MULTIVITAMIN -ADULT INJECTION 10 ML, THIAMINE INJection 100 MG, FOLIC ACID 1 MG in NS 1... IV ONE (16:00)
[2019-03-29] MEDS: LR 1,000 ML IV SCH ×2 (16:54→20:08)
[2019-03-29] MEDS: HYOSCYAMINE SULFATE 0.125 MG SUBL TABLET PO PRN (20:08)
[2019-03-29] MEDS: CALCIUM CARBONATE 500 MG CHEW U/D PO PRN (20:08)
[2019-03-29 22:28] VITALS: BP 130/80
[2019-03-30] MEDS: methylPREDNISolone INJ 125 MG/2 ML VIAL (J2930) IV SCH ×2 (01:13→12:16)
[2019-03-30] MEDS: SODIUM CHLORIDE 0.9% INJ 10 ML SYR IV PRN (01:14)
[2019-03-30] MEDS: LR 1,000 ML IV SCH ×4 (01:14→12:16)
[2019-03-30] MEDS: SODIUM CHLORIDE 0.9% INJ 10 ML SYR IV SCH ×2 (05:10→16:55)
[2019-03-30 06:00] LABS: BLOOD UREA NITROGEN 26 MG/DL (7-18); CALCIUM LEVEL 6.7 MG/DL (8.5-10.1); CARBON DIOXIDE LEVEL 11 MEQ/L (21-32); CHLORIDE LEVEL 125 MEQ/L (98-107); CREATININE FOR GFR 0.77 MG/DL (0.70-1.30); GLOMERULAR FILTRATION RATE > 60.0 (>56); GLUCOSE, FASTING 93 MG/DL (70-100); POTASSIUM SERUM 2.8 MEQ/L (3.5-5.1); SODIUM LEVEL 143 MEQ/L (136-145)
[2019-03-30 06:09] VITALS: BP 130/82
[2019-03-30 06:14] LABS: MEAN CORPUSCULAR HEMOGLOBIN 31.8 pg (27.0-33.0); MEAN CORPUSCULAR HGB CONC 32.4 g/dl (32.0-36.5); MEAN CORPUSCULAR VOLUME 97.9 fl (80.0-96.0); PLATELET COUNT, AUTOMATED 229 10^3/uL (150-450); RED BLOOD COUNT 3.37 10^6/uL (4.30-6.10); WHITE BLOOD COUNT 11.8 10^3/uL (4.0-10.0)
[2019-03-30] MEDS ORDERED: POTASSIUM CHLORIDE 10 MEQ SR TABLET PO ONE (06:15)
[2019-03-30] MEDS ORDERED: KCL 10MEQ/100ML SWI (KRUN) 10 MEQ in IV 1 EA IV ONE ×2 (06:15→23:30)
[2019-03-30 06:18] LABS: HEMOGLOBIN 10.7 g/dl (13.5-17.5)
[2019-03-30 06:36] LABS: ANISOCYTOSIS 1+; ATYPICAL LYMPH 3 % (0-5); LYMPHOCYTES 17 % (16-44); METAMYELOCYTES 1 % (0-0); MONOCYTES 6 % (0-5); MYELOCYTES 1 % (0-0); NEUTROPHILS 71 % (28-66); PLATELET ESTIMATE NORMAL (NORMAL); POIKILOCYTOSIS 1+
[2019-03-30] MEDS: LACTOBACILLUS ACIDOPHILUS CAP (BACID) PO SCH ×3 (08:15→16:55)
[2019-03-30] MEDS: HYOSCYAMINE SULFATE 0.125 MG SUBL TABLET PO PRN (08:15)
[2019-03-30] MEDS: LOMOTIL 2.5MG/0.025MG TABLET PO SCH ×3 (08:15→20:37)
[2019-03-30] MEDS: CYANOCOBALAMIN 500 MCG TAB PO SCH (08:16)
[2019-03-30] MEDS: APIXABAN 5 MG TAB (ELIQUIS) PO SCH ×2 (08:16→20:37)
[2019-03-30] MEDS: ACETAMINOPHEN 500 MG TAB PO PRN ×2 (08:16→20:37)
[2019-03-30] MEDS ORDERED: MAG SULF 1GM/100ML (MAG RUN) 1 GM in IV 1 EA IV ONE (11:00)
[2019-03-30 11:33] LABS: MAGNESIUM LEVEL 1.8 MG/DL (1.8-2.4)
[2019-03-30] MEDS ORDERED: MULTIVITAMIN -ADULT INJECTION 10 ML, THIAMINE INJection 100 MG, FOLIC ACID 1 MG in NS 1... IV ONE (12:00)
[2019-03-30] MEDS: POTASSIUM CHLORIDE 10 MEQ SR TABLET PO SCH ×3 (12:12→14:35)
[2019-03-30 14:00] VITALS: BP 122/80
--- NOTE | 2019-03-30 17:38 | IPN ---
DATE: 03/30/2019 Patient still continues to complain about 10 bowel movements daily, documented, however, had been about 5 yesterday. Patient denies any abdominal pain, fever, chills. No joint pains. PHYSICAL EXAMINATION: Temperature 96, pulse 66, respiratory rate 18, blood pressure 122/80, 100% on room air. Generally, awake, alert, oriented times three, answering questions appropriately, no respiratory distress. No jugular venous distention (JVD). No thyromegaly. Lungs are clear to auscultation. There is no wheezing or rales. Heart: S1, S2, sinus rhythm. Abdomen is soft, somewhat tender diffusely. No rebound or guarding. Positive bowel sounds. Extremities: No pitting edema. LABORATORY DATA: White count 11.8, hemoglobin 10, hematocrit 33, platelet count 229. Sodium 142, potassium 2.8, chloride 125, bicarbonate 11, BUN 26, creatinine 0.77, glucose of 93. ASSESSMENT AND PLAN: 1. A 48-year-old male with a history of Crohn's disease with ileitis and colitis, currently on low residue diet, Lomotil two tablets three times a day, Solu- Medrol for now and transition to prednisone 40 mg daily once symptoms improve. Pentasa has been discontinued due to renal dysfunction. Awaiting results of the Humira level. Defer to gastroenterology if patient's Humira dosing should be increased or changed to an alternative. 2. Electrolyte abnormalities with low potassium secondary to ongoing diarrhea with acute kidney injury which has resolved. Patient continues to have metabolic acidosis and will require supplementation. 3. Acute kidney injury due to diarrhea, has improved. 4. Pulmonary embolism (PE), on Eliquis. 5. history of Clostridium difficile, on lactobacillus. 6. History of B12 and vitamin D deficiency, on cyanocobalamin. MTDD
[2019-03-30] MEDS: SODIUM BICARBONATE 325 MG TAB PO SCH ×2 (17:44→20:37)
[2019-03-30] MEDS ORDERED: SODIUM BICARBONATE 150 MEQ in D5W 1,000 ML IV SCH (18:00)
[2019-03-30] MEDS: CALCIUM CARBONATE 500 MG CHEW U/D PO PRN (20:37)
[2019-03-30 23:19] LABS: BLOOD UREA NITROGEN 27 MG/DL (7-18); CALCIUM LEVEL 8.4 MG/DL (8.5-10.1); CARBON DIOXIDE LEVEL 14 MEQ/L (21-32); CHLORIDE LEVEL 119 MEQ/L (98-107); GLOMERULAR FILTRATION RATE > 60.0 (>56); GLUCOSE, FASTING 142 MG/DL (70-100); POTASSIUM SERUM 3.2 MEQ/L (3.5-5.1); SODIUM LEVEL 143 MEQ/L (136-145)
[2019-03-31] VITALS: BP 130/89
[2019-03-31] MEDS: methylPREDNISolone INJ 125 MG/2 ML VIAL (J2930) IV SCH ×2 (00:02→12:20)
[2019-03-31] MEDS: SODIUM CHLORIDE 0.9% INJ 10 ML SYR IV SCH ×2 (05:31→18:43)
[2019-03-31 05:37] LABS: MEAN CORPUSCULAR HEMOGLOBIN 31.1 pg (27.0-33.0); MEAN CORPUSCULAR HGB CONC 32.8 g/dl (32.0-36.5); PLATELET COUNT, AUTOMATED 300 10^3/uL (150-450); RED BLOOD COUNT 4.21 10^6/uL (4.30-6.10); WHITE BLOOD COUNT 15.3 10^3/uL (4.0-10.0)
[2019-03-31 05:59] LABS: HEMOGLOBIN 13.1 g/dl (13.5-17.5)
[2019-03-31 06:00] VITALS: BP 138/53
[2019-03-31 06:13] LABS: ATYPICAL LYMPH 1 % (0-5); EOSINOPHILS 1 % (0-3); LYMPHOCYTES 11 % (16-44); METAMYELOCYTES 1 % (0-0); MONOCYTES 6 % (0-5); MYELOCYTES 1 % (0-0); NEUTROPHILS 78 % (28-66)
[2019-03-31 06:14] LABS: BLOOD UREA NITROGEN 24 MG/DL (7-18); CALCIUM LEVEL 6.8 MG/DL (8.5-10.1); CARBON DIOXIDE LEVEL 12 MEQ/L (21-32); CHLORIDE LEVEL 125 MEQ/L (98-107); CREATININE FOR GFR 0.75 MG/DL (0.70-1.30); GLOMERULAR FILTRATION RATE > 60.0 (>56); GLUCOSE, FASTING 105 MG/DL (70-100); OVALOCYTES 1+; PLATELET ESTIMATE NORMAL (NORMAL); POTASSIUM SERUM 2.6 MEQ/L (3.5-5.1); SODIUM LEVEL 144 MEQ/L (136-145)
[2019-03-31] MEDS ORDERED: POTASSIUM CHLORIDE 10 MEQ SR TABLET PO ONE (06:30)
[2019-03-31] MEDS ORDERED: KCL 10MEQ/100ML SWI (KRUN) 10 MEQ in IV 1 EA IV ONE (06:30)
[2019-03-31] MEDS ORDERED: HUMI40KI2 SC (08:00)
[2019-03-31] MEDS: SODIUM BICARBONATE 150 MEQ in D5W 1,000 ML IV SCH ×3 (08:20→21:45)
[2019-03-31] MEDS: CYANOCOBALAMIN 500 MCG TAB PO SCH (08:39)
[2019-03-31] MEDS: POTASSIUM CHLORIDE 10 MEQ SR TABLET PO SCH ×3 (08:39→11:10)
[2019-03-31] MEDS: LACTOBACILLUS ACIDOPHILUS CAP (BACID) PO SCH ×3 (08:39→18:43)
[2019-03-31] MEDS: SODIUM BICARBONATE 325 MG TAB PO SCH ×4 (08:39→20:51)
[2019-03-31] MEDS: APIXABAN 5 MG TAB (ELIQUIS) PO SCH ×2 (08:39→20:51)
[2019-03-31] MEDS: LOMOTIL 2.5MG/0.025MG TABLET PO SCH ×3 (08:40→20:51)
[2019-03-31] MEDS ORDERED: NON-FORMULARY 1 EA EA IV SCH (09:00)
[2019-03-31 09:09] LABS: MAGNESIUM LEVEL 2.2 MG/DL (1.8-2.4)
--- NOTE | 2019-03-31 09:23 | IPN ---
DATE OF SERVICE: 03/31/2019 The patient continues to complain of diarrhea about 11-12 times daily. No abdominal pain, fever or chills. The patient denies any bloody bowel movements. No weakness of the lower extremities despite very low potassium levels. The patient denies any muscle cramping or abdominal cramps. VITAL SIGNS: Temperature 97.7, pulse 63, respiratory rate 16, blood pressure 138/53, 97% on room air. Generally the patient is awake, alert, oriented times three, answering questions appropriately. No icterus. No jaundice. Pupils round and reactive. Extraocular muscles intact. Normocephalic, atraumatic. The patient has dry mucous membranes. No cervical lymphadenopathy or thyromegaly. Lungs are clear to auscultation. No wheezing, rales or rhonchi. Heart: S1, S2, sinus rhythm. No murmurs, rubs or gallops. Abdomen is soft, slightly tender epigastric region. No rebound or guarding. Positive bowel sounds. No hepatosplenomegaly. No abdominal bruits. Extremities: No cyanosis, clubbing or pitting edema. LABORATORY DATA: White count 15, hemoglobin 13, hematocrit 40, platelet count 300. Sodium 144, potassium 2.6, bicarbonate 112, chloride 125, BUN 24, creatinine 0.75, glucose of 105, calcium of 6.8. ASSESSMENT AND PLAN: This is a 48-year-old with Crohn's ileitis and colitis admitted for exacerbation. IMPRESSION: 1. Crohn's ileitis and colitis. Plan is to have Solu-Medrol for now, change to prednisone 40 daily once symptoms improve. Pentasa has been discontinued due to renal dysfunction. Humira levels are low are according to Dr. Huber and Dr. Seo who will see the patient today. He should have Humira 80 mg today and then one time weekly next week. This needs preauthorization and has been sent to local [facility], which is to go to [facility] in [place] and overnight delivered. We will get in touch with a GI clinic for preauthorization. 2. Electrolyte abnormalities due to ongoing diarrhe. The patient has low potassium, which has been supplemented, but continuous to be low. Will continue with potassium supplements, magnesium and ionized calcium. 3. Metabolic acidosis due to diarrhea. The patient has been on a bicarbonate drip with potassium, magnesium and ionized calcium monitoring every 6 hours. The patient may need to be transferred to progressive care unit (PCU) for telemetry. ROSE
[2019-03-31 12:12] LABS: IONIZED CALCIUM 4.7 MG/DL (4.5-5.3)
[2019-03-31 12:41] LABS: BLOOD UREA NITROGEN 26 MG/DL (7-18); CALCIUM LEVEL 8.4 MG/DL (8.5-10.1); CARBON DIOXIDE LEVEL 14 MEQ/L (21-32); CHLORIDE LEVEL 118 MEQ/L (98-107); GLOMERULAR FILTRATION RATE > 60.0 (>56); GLUCOSE, FASTING 150 MG/DL (70-100); MAGNESIUM LEVEL 2.2 MG/DL (1.8-2.4); POTASSIUM SERUM 3.1 MEQ/L (3.5-5.1); SODIUM LEVEL 139 MEQ/L (136-145)
[2019-03-31 14:00] VITALS: BP 160/104
[2019-03-31 14:55] VITALS: BP 126/78
[2019-03-31] MEDS: SODIUM CHLORIDE 0.9% INJ 10 ML SYR IV PRN (18:45)
[2019-03-31 18:59] LABS: IONIZED CALCIUM 4.7 MG/DL (4.5-5.3)
[2019-03-31 19:34] LABS: BLOOD UREA NITROGEN 24 MG/DL (7-18); CALCIUM LEVEL 8.4 MG/DL (8.5-10.1); CARBON DIOXIDE LEVEL 18 MEQ/L (21-32); CHLORIDE LEVEL 112 MEQ/L (98-107); CREATININE FOR GFR 0.94 MG/DL (0.70-1.30); GLOMERULAR FILTRATION RATE > 60.0 (>56); GLUCOSE, FASTING 135 MG/DL (70-100); MAGNESIUM LEVEL 2.2 MG/DL (1.8-2.4); POTASSIUM SERUM 3.5 MEQ/L (3.5-5.1); SODIUM LEVEL 142 MEQ/L (136-145)
[2019-03-31] MEDS ORDERED: FUROSEMIDE 20 MG/2 ML VIAL (J1940) IV ONE (21:00)
[2019-03-31 21:25] VITALS: BP 145/82
[2019-03-31] MEDS: ACETAMINOPHEN 500 MG TAB PO PRN (21:46)
[2019-04-01] MEDS: methylPREDNISolone INJ 125 MG/2 ML VIAL (J2930) IV SCH ×2 (00:17→11:19)
[2019-04-01] MEDS: SODIUM CHLORIDE 0.9% INJ 10 ML SYR IV PRN (00:17)
[2019-04-01 00:30] LABS: IONIZED CALCIUM 4.6 MG/DL (4.5-5.3)
[2019-04-01 00:56] LABS: BLOOD UREA NITROGEN 23 MG/DL (7-18); CALCIUM LEVEL 6.8 MG/DL (8.5-10.1); CARBON DIOXIDE LEVEL 18 MEQ/L (21-32); CHLORIDE LEVEL 119 MEQ/L (98-107); CREATININE FOR GFR 0.97 MG/DL (0.70-1.30); GLOMERULAR FILTRATION RATE > 60.0 (>56); GLUCOSE, FASTING 148 MG/DL (70-100); MAGNESIUM LEVEL 1.7 MG/DL (1.8-2.4); POTASSIUM SERUM 2.7 MEQ/L (3.5-5.1); SODIUM LEVEL 145 MEQ/L (136-145)
[2019-04-01] MEDS ORDERED: POTASSIUM CHLORIDE 10 MEQ SR TABLET PO ONE (01:15)
[2019-04-01] MEDS: SODIUM BICARBONATE 150 MEQ in D5W 1,000 ML IV SCH (02:34)
[2019-04-01] MEDS: MORPHINE 2 MG/ML 1ML VIAL (J2270) IV PRN ×2 (04:07→12:28)
[2019-04-01] MEDS: SODIUM CHLORIDE 0.9% INJ 10 ML SYR IV SCH ×2 (04:16→16:54)
[2019-04-01 05:35] LABS: BLOOD UREA NITROGEN 23 MG/DL (7-18); CARBON DIOXIDE LEVEL 21 MEQ/L (21-32); CHLORIDE LEVEL 114 MEQ/L (98-107); CREATININE FOR GFR 1.02 MG/DL (0.70-1.30); GLOMERULAR FILTRATION RATE > 60.0 (>56); GLUCOSE, FASTING 127 MG/DL (70-100); MAGNESIUM LEVEL 1.8 MG/DL (1.8-2.4); SODIUM LEVEL 143 MEQ/L (136-145)
[2019-04-01] MEDS ORDERED: MAG SULF 1GM/100ML (MAG RUN) 1 GM in IV 1 EA IV ONE (05:45)
[2019-04-01 05:46] LABS: HEMATOCRIT 37.5 % (42.0-52.0); HEMOGLOBIN 12.6 g/dl (13.5-17.5); MEAN CORPUSCULAR HEMOGLOBIN 31.7 pg (27.0-33.0); MEAN CORPUSCULAR HGB CONC 33.6 g/dl (32.0-36.5); MEAN CORPUSCULAR VOLUME 94.5 fl (80.0-96.0); PLATELET COUNT, AUTOMATED 253 10^3/uL (150-450); RED BLOOD COUNT 3.97 10^6/uL (4.30-6.10); WHITE BLOOD COUNT 12.7 10^3/uL (4.0-10.0)
[2019-04-01 06:00] LABS: NT-PRO BNP 205 PG/ML (<125)
[2019-04-01 06:28] LABS: ATYPICAL LYMPH 3 % (0-5); LYMPHOCYTES 16 % (16-44); NEUTROPHILS 81 % (28-66); PLATELET ESTIMATE NORMAL (NORMAL)
[2019-04-01 06:45] VITALS: BP 140/85
--- NOTE | 2019-04-01 07:53 | REP ---
Clinical: Shortness of breath. Technique: PA and lateral. Comparison: 02/13/2019. Findings: Fibroatelectatic changes at the left base remain stable. Mediastinum and cardiac silhouette are within normal limits. Lung sahu are relatively clear and without focal consolidation, effusion, or pneumothorax. Right-sided PICC line with tip in the SVC noted. Skeletal structures intact. Impression: Chronic changes at the left base. No acute consolidation or effusion appreciated. Electronically Signed by Ramon Noyola MD 04/01/2019 07:45 A
[2019-04-01] MEDS ORDERED: KCL 20MEQ IN D5W 1000ML 1,000 ML IV SCH (08:00)
[2019-04-01] MEDS: SODIUM BICARBONATE 325 MG TAB PO SCH ×4 (08:33→20:16)
[2019-04-01] MEDS: LOMOTIL 2.5MG/0.025MG TABLET PO SCH ×3 (08:33→20:16)
[2019-04-01] MEDS: CYANOCOBALAMIN 500 MCG TAB PO SCH (08:33)
[2019-04-01] MEDS: APIXABAN 5 MG TAB (ELIQUIS) PO SCH ×2 (08:33→20:16)
[2019-04-01] MEDS: LACTOBACILLUS ACIDOPHILUS CAP (BACID) PO SCH ×3 (08:33→18:02)
[2019-04-01] MEDS: POTASSIUM CHLORIDE 10 MEQ SR TABLET PO SCH ×3 (08:34→20:17)
[2019-04-01] MEDS: ACETAMINOPHEN 500 MG TAB PO PRN (08:50)
[2019-04-01] MEDS ORDERED: KCL 20MEQ IN D5/0.45NS 1000ML 1,000 ML IV SCH (11:00)
[2019-04-01 12:41] LABS: IONIZED CALCIUM 4.7 MG/DL (4.5-5.3)
[2019-04-01 13:12] LABS: MAGNESIUM LEVEL 2.4 MG/DL (1.8-2.4)
[2019-04-01 14:00] VITALS: BP 142/86
[2019-04-01] MEDS: CALCIUM CARBONATE 500 MG CHEW U/D PO PRN (16:50)
[2019-04-01 17:41] LABS: BLOOD UREA NITROGEN 26 MG/DL (7-18); CALCIUM LEVEL 8.4 MG/DL (8.5-10.1); CARBON DIOXIDE LEVEL 19 MEQ/L (21-32); CHLORIDE LEVEL 114 MEQ/L (98-107); CREATININE FOR GFR 1.11 MG/DL (0.70-1.30); GLOMERULAR FILTRATION RATE > 60.0 (>56); GLUCOSE, FASTING 132 MG/DL (70-100); POTASSIUM SERUM 3.5 MEQ/L (3.5-5.1); SODIUM LEVEL 141 MEQ/L (136-145)
[2019-04-01] MEDS: SODIUM BICARBONATE 75 MEQ, POTASSIUM CHLORIDE INJ 20 MEQ in NS 0.45% 1,000 ML IV SCH (20:16)
--- NOTE | 2019-04-01 20:34 | IPNPDOC ---
Date Seen The patient was seen on 04/01/19. Progress Note SUBJECTIVE: 48-year-old male with past medical history of Crohn's disease with persistent severe watery diarrhea, pulmonary embolism (on Eliquis) was admitted for Crohn's flare. He underwent colonoscopy which showed colitis, remains on IV steroids, awaiting insurance prior authorization for Humira. Patient continues to have watery diarrhea today, has severe electrolyte abnormalities and dehyd ration, requiring persistent IV fluids and will address supplementations via IV and oral. He also reports left flank pain, started after receiving Lasix last night, no other complaints at this time. He denies any short of breath, chest pain, nausea, vomiting, abdominal pain. 10 point review of systems negative except for above OBJECTIVE PHYSICAL EXAMINATION: VITAL SIGNS: Please see below. GENERAL: No distress HEENT: Normocephalic, atraumatic, moist mucous membranes NECK: Supple CARDIOVASCULAR EXAMINATION: S1, S2, no murmurs RESPIRATORY EXAMINATION: Clear to auscultation, no wheezing ABDOMINAL EXAMINATION: Soft, nontender, nondistended, positive bowel sounds, left CVA tenderness EXTREMITIES: Range of motion intact SKIN: No rash NEUROLOGICAL EXAMINATION: Alert and oriented 3, no focal deficits PSYCHIATRIC EXAMINATION: Calm and cooperative LABORATORY DATA, IMAGING STUDIES, MICROBIOLOGY: Please see below. DVT prophylaxis ordered?: No ASSESSMENT AND PLAN: 48-year-old male with past medical history of Crohn's disease, chronic diarrhea, probably embolism was admitted for Crohn's flareup. PROBLEMS: 1. Crohn's disease: Continue Solu-Medrol, awaiting approval for Humira, continues to have severe diarrhea. 2. Severe dehydration and electrolyte abnormalities: Secondary to persistent diarrhea, continue sodium bicarbonate 75 mEq with half-normal saline and 20 mEq of potassium chloride at 100 mL's per hour. Continue oral potassium supplementation as well. 3. Pulmonary embolism: Continue Eliquis DVT prophylaxis: On Eliquis GI prophylaxis: Protonix VS, I&O, 24H, Fishbone Vital Signs/I&O Vital Signs Date Time Temp Pulse Resp B/P (MAP) Pulse Ox O2 Delivery O2 Flow Rate FiO2 04/01/19 14:00 97.1 69 15 142/86 (104) 100 Room Air I&O- Last 24 Hours up to 6 AM 04/01/19 06:00 Intake Total 6360 ml Output Total 1850 ml Balance 4510 ml Laboratory Data 24H LABS Laboratory Tests 2 04/01/19 00:15: Anion Gap 8, Glomerular Filtration Rate > 60.0, Calcium Level 6.8#L, Whole Blood Ionized Calcium 4.6, Magnesium Level 1.7L 04/01/19 04:10: Anion Gap 8, Glomerular Filtration Rate > 60.0, Calcium Level 7.0L, Whole Blood Ionized Calcium 4.7, Magnesium Level 1.8, YG-[id number]-[id number]-Type Natriuretic Peptide 205H 04/01/19 05:19: Urine Color YELLOW, Urine Appearance CLEAR, Urine pH 6.0, Urine Specific [place] 1.014, Urine Protein NEGATIVE, Urine Glucose (UA) NEGATIVE, Urine Ketones NEGATIVE, Urine Blood 1+H, Urine Nitrite NEGATIVE, Urine Bilirubin NEGATIVE, Urine Urobilinogen 0.2, Urine Leukocyte Esterase NEGATIVE, Urine WBC (Auto) 1, Urine RBC (Auto) 3, Urine Hyaline Casts (Auto) 0, Urine Bacteria (Auto) NEGATIVE, Urine Squamous Epithelial Cells 0, Urine Mucus (Auto) SMALL, Urine Sperm (Auto) 04/01/19 05:32: Immature Granulocyte % (Auto) , Nucleated Red Blood Cells % (auto) 0.0, Neutrophils 81H, Lymphocytes (Manual) 16, Atypical Lymphocytes 3, Red Blood Cell Morphology NORMAL, Platelet Estimate NORMAL 04/01/19 12:24: Whole Blood Ionized Calcium 4.7, Magnesium Level 2.4 04/01/19 16:52: Anion Gap 8, Glomerular Filtration Rate > 60.0, Calcium Level 8.4#L CBC/BMP Laboratory Tests 04/01/19 00:15 04/01/19 04:10 04/01/19 05:32 04/01/19 16:52 Microbiology Microbiology 04/01/19 Blood Culture, Received Pending 04/01/19 Blood Culture, Received Pending ALEXIA BABB MD Apr 01, 2019 20:34
[2019-04-01] MEDS ORDERED: PANTOPRAZOLE 40MG TAB (PROTONIX) PO ONE (21:00)
[2019-04-01 22:06] VITALS: BP 138/86
[2019-04-01] MEDS: methylPREDNISolone INJ 40 MG/1 ML VIAL (J2920) IV SCH (23:36)
--- NOTE | 2019-04-02 06:28 | REP ---
Clinical: Flank pain. Technique: Real time sheth scale ultrasound examination using curved array transducer. Findings: Bilateral kidneys are normal in contour, size, echogenicity without hydronephrosis, cystic or renal mass lesion. No definite nephrolithiasis. Right kidney measures 12.0 x 5.1 x 7.0 cm. Left kidney measures 11.7 x 5.2 x 6.7 cm. The bladder is under distended but grossly normal in appearance. Impression: Normal renal ultrasound. No hydronephrosis. Electronically Signed by Ramon Noyola MD 04/02/2019 06:19 A
[2019-04-02 06:33] VITALS: BP 137/82
[2019-04-02] MEDS: SODIUM CHLORIDE 0.9% INJ 10 ML SYR IV SCH ×2 (06:37→15:50)
[2019-04-02] MEDS: SODIUM BICARBONATE 75 MEQ, POTASSIUM CHLORIDE INJ 20 MEQ in NS 0.45% 1,000 ML IV SCH ×2 (06:38→19:31)
[2019-04-02 07:04] LABS: HEMATOCRIT 35.4 % (42.0-52.0); HEMOGLOBIN 11.7 g/dl (13.5-17.5); MEAN CORPUSCULAR HEMOGLOBIN 31.6 pg (27.0-33.0); MEAN CORPUSCULAR HGB CONC 33.1 g/dl (32.0-36.5); MEAN CORPUSCULAR VOLUME 95.7 fl (80.0-96.0); PLATELET COUNT, AUTOMATED 267 10^3/uL (150-450); WHITE BLOOD COUNT 13.7 10^3/uL (4.0-10.0)
[2019-04-02 07:27] LABS: ATYPICAL LYMPH 1 % (0-5); LYMPHOCYTES 9 % (16-44); METAMYELOCYTES 4 % (0-0); MONOCYTES 1 % (0-5); NEUTROPHILS 84 % (28-66)
[2019-04-02 07:28] LABS: PLATELET ESTIMATE NORMAL (NORMAL)
[2019-04-02 07:29] LABS: TOXIC GRANULATION 1+
[2019-04-02 07:31] LABS: ALBUMIN 2.6 GM/DL (3.2-5.2); ALT/SGPT 55 U/L (12-78); BILIRUBIN,TOTAL 0.2 MG/DL (0.2-1.0); BLOOD UREA NITROGEN 21 MG/DL (7-18); CALCIUM LEVEL 8.1 MG/DL (8.5-10.1); CARBON DIOXIDE LEVEL 17 MEQ/L (21-32); CHLORIDE LEVEL 118 MEQ/L (98-107); GLOMERULAR FILTRATION RATE > 60.0 (>56); GLUCOSE, FASTING 114 MG/DL (70-100); MAGNESIUM LEVEL 2.2 MG/DL (1.8-2.4); PHOSPHORUS LEVEL 2.8 MG/DL (2.5-4.9); POTASSIUM SERUM 3.8 MEQ/L (3.5-5.1); SODIUM LEVEL 144 MEQ/L (136-145); TOTAL PROTEIN 5.5 GM/DL (6.4-8.2)
[2019-04-02] MEDS: SODIUM BICARBONATE 325 MG TAB PO SCH ×4 (08:51→21:12)
[2019-04-02] MEDS: LOMOTIL 2.5MG/0.025MG TABLET PO SCH ×3 (08:51→20:54)
[2019-04-02] MEDS: POTASSIUM CHLORIDE 10 MEQ SR TABLET PO SCH ×3 (08:52→20:55)
[2019-04-02] MEDS: LACTOBACILLUS ACIDOPHILUS CAP (BACID) PO SCH ×3 (08:53→18:43)
[2019-04-02] MEDS: CYANOCOBALAMIN 500 MCG TAB PO SCH (08:54)
[2019-04-02] MEDS: APIXABAN 5 MG TAB (ELIQUIS) PO SCH ×2 (08:54→20:55)
[2019-04-02] MEDS: PANTOPRAZOLE 40MG TAB (PROTONIX) PO SCH (08:55)
[2019-04-02] MEDS: methylPREDNISolone INJ 40 MG/1 ML VIAL (J2920) IV SCH (12:09)
--- NOTE | 2019-04-02 13:11 | PHACANCOPD ---
PHARMACY VANCOMYCIN DOSING Pt Demographics Demographics Patient Age:48 , Weight:93.100 , Gender: male Adjusted Body Weight Date: 04/02/19, Adjusted Body Weight: Kg Events Past 24 Hours Events Past 24 Hours: YES: Elevation in WBC, Pending Diagnostics; NO: Dialysis, Diuretic Therapy, Change in CrCl, Fever, Pending Procedures, Other Vancomycin Vancomycin Target Ranges: 15-20 mcg/ml Vancomycin Load Y/N: Yes Load Dose Date Time Vancomycin Load Dose: 2G Date: 04/02/19 Time: 1500 Vancomycin Dose Date: 04/02/19. Current Vancomycin Dose: Intermittent Dosing?: No Labs Labs Vital Signs Label Value Date Time Patient Temperature 97.8 degrees F 04/02/19 0633 Temperature Source Oral 04/02/19 0633 Patient Temperature 97.3 degrees F 04/01/19 2206 Temperature Source Temporal 04/01/19 2206 Patient Temperature 97.1 degrees F 04/01/19 1400 Temperature Source Temporal 04/01/19 1400 Item Value Date Time White Blood Count 13.7 10^3/uL H 04/02/19 0640 White Blood Count 12.7 10^3/uL H 04/01/19 0532 White Blood Count 15.3 10^3/uL H 03/31/19 0525 Creatinine 0.90 MG/DL 04/02/19 0640 Creatinine 1.11 MG/DL 04/01/19 1652 Creatinine 1.02 MG/DL 04/01/19 0410 KT-Spx-I-Type Natriuretic Peptide 205 PG/ML H 04/01/19 0410 Micro Microbiology 04/01/19 Blood Culture - Preliminary, Resulted No growth after 24 hours . All specim... 04/01/19 Blood Culture - Preliminary, Resulted Creatinine Clearance Date:04/02/19. Creatinine Clearance: . Assessment and Plan Maintaining Current Dose?: Yes Reason for dose change: No Dose Change Pharmacist Note Pharmacist Note Date: 04/02/19. Pharmacist note: Pt is a 48 year old male with positive preliminary culture for gram (+). I have loaded the patient with Vanco 2g @1500, followed by 1G IV Q12H per last consult. We will continue to monitor and adjust dose as needed. BETZAIDA ORDONEZ [facility]ARM[facility] Apr 02, 2019 13:11
[2019-04-02 14:00] VITALS: BP 140/88
[2019-04-02] MEDS ORDERED: VANCOMYCIN HCL 1,000 MG, VIAL MATE ADAPTER 1 EACH in D5W 250 ML IV ONE (15:00)
[2019-04-02] MEDS ORDERED: HUMIRA 40 MG/0.4 ML SC ONE (15:00)
--- NOTE | 2019-04-02 17:37 | IPNPDOC ---
Date Seen The patient was seen on 04/02/19. Progress Note SUBJECTIVE: 48-year-old male with past medical history of Crohn's disease with persistent severe watery diarrhea, pulmonary embolism (on Eliquis) was admitted for Crohn's flare. He underwent colonoscopy which showed colitis, remains on IV steroids, awaiting insurance prior authorization for Humira. Patient continues to have watery diarrhea today, has severe electrolyte abnormalities and dehyd ration, requiring persistent IV fluids and will address supplementations via IV and oral. He also reports left flank pain, started after receiving Lasix last night, no other complaints at this time. He denies any short of breath, chest pain, nausea, vomiting, abdominal pain. 04/02/2019 Patient reports improvement in diarrhea, only 1 episode so far today, his one set of cultures is growing gram-positive cocci, patient does not appear toxic, patient without any additional complaints at this time, reports resolution of left flank pain. He denies any shortness of breath, chest pain, nausea, vomiting or abdominal pain at this time. 10 point review of systems negative except for above OBJECTIVE PHYSICAL EXAMINATION: VITAL SIGNS: Please see below. GENERAL: No distress HEENT: Normocephalic, atraumatic, moist mucous membranes NECK: Supple CARDIOVASCULAR EXAMINATION: S1, S2, no murmurs RESPIRATORY EXAMINATION: Clear to auscultation, no wheezing ABDOMINAL EXAMINATION: Soft, nontender, nondistended, positive bowel sounds EXTREMITIES: Range of motion intact SKIN: No rash NEUROLOGICAL EXAMINATION: Alert and oriented 3, no focal deficits PSYCHIATRIC EXAMINATION: Calm and cooperative LABORATORY DATA, IMAGING STUDIES, MICROBIOLOGY: Please see below. DVT prophylaxis ordered?: No ASSESSMENT AND PLAN: 48-year-old male with past medical history of Crohn's disease, chronic diarrhea, probably embolism was admitted for Crohn's flareup. PROBLEMS: 1. Bacteremia. One set of cultures is preliminary positive for gram-positive cocci, second set remains negative so far, questionable contamination. Patient does have a PICC line, which is of concern, RN attempted to place peripheral IV, unsucc essful, will continue using PICC line for now as patient does not appear toxic, afebrile, without any lab or clinical signs of disseminated infection. Started on vancomycin, repeat cultures obtained. 2. Crohn's disease: Continue Solu-Medrol, hold Humira given positive blood cultures, if contamination, will give Humira on Friday, diarrhea, improving. 3. Severe dehydration and electrolyte abnormalities: Secondary to persistent diarrhea, continue sodium bicarbonate 75 mEq with half-normal saline and 20 mEq of potassium chloride at 100 mL's per hour. Continue oral potassium supplementation as well. 4. Pulmonary embolism: Continue Eliquis DVT prophylaxis: On Eliquis GI prophylaxis: Protonix VS, I&O, 24H, Fishbone Vital Signs/I&O Vital Signs Date Time Temp Pulse Resp B/P (MAP) Pulse Ox O2 Delivery O2 Flow Rate FiO2 04/02/19 06:33 97.8 65 18 137/82 (100) 98 Room Air I&O- Last 24 Hours up to 6 AM 04/02/19 06:00 Intake Total 3490 ml Output Total 1160 ml Balance 2330 ml Laboratory Data 24H LABS Laboratory Tests 2 04/02/19 06:40: Immature Granulocyte % (Auto) , Nucleated Red Blood Cells % (auto) 0.0, Neutrophils 84H, Band Neutrophils 1, Lymphocytes (Manual) 9L, Monocytes (Manual) 1, Metamyelocytes 4H, Atypical Lymphocytes 1, Red Blood Cell Morphology NORMAL, Toxic Granulation 1+, Platelet Estimate NORMAL, Anion Gap 9, Glomerular Filtration Rate > 60.0, Calcium Level 8.1L, Phosphorus Level 2.8, Magnesium Level 2.2, Total Bilirubin 0.2, Aspartate Amino Transf (AST/SGOT) 20, Alanine Aminotransferase (ALT/SGPT) 55, Alkaline Phosphatase 63, Total Protein 5.5L, Albumin 2.6L, Albumin/Globulin Ratio 0.90L CBC/BMP Laboratory Tests 04/02/19 06:40 Microbiology Microbiology 04/02/19 Blood Culture, Received Pending 04/02/19 Blood Culture, Received Pending 04/02/19 Blood Culture, Received Pending 04/01/19 Blood Culture - Preliminary, Resulted No growth after 24 hours . All specim... 04/01/19 Blood Culture - Preliminary, Resulted ALEXIA BABB MD Apr 02, 2019 17:37
[2019-04-02] MEDS: VANCOMYCIN HCL 1,000 MG, VIAL MATE ADAPTER 1 EACH in D5W 250 ML IV SCH (18:23)
[2019-04-02] MEDS ORDERED: HUMIRA 40 MG/0.4 ML SC PRN (18:30)
[2019-04-02 22:00] VITALS: BP 128/84
[2019-04-03] MEDS: methylPREDNISolone INJ 40 MG/1 ML VIAL (J2920) IV SCH ×2 (00:54→11:45)
[2019-04-03] MEDS: ACETAMINOPHEN 500 MG TAB PO PRN (02:46)
[2019-04-03] MEDS: VANCOMYCIN HCL 1,000 MG, VIAL MATE ADAPTER 1 EACH in D5W 250 ML IV SCH ×2 (03:39→16:16)
[2019-04-03 06:00] VITALS: BP 118/80
[2019-04-03] MEDS: SODIUM CHLORIDE 0.9% INJ 10 ML SYR IV SCH ×2 (06:00→17:26)
[2019-04-03 06:50] LABS: HEMATOCRIT 33.8 % (42.0-52.0); HEMOGLOBIN 10.8 g/dl (13.5-17.5); MEAN CORPUSCULAR HEMOGLOBIN 31.5 pg (27.0-33.0); MEAN CORPUSCULAR VOLUME 98.5 fl (80.0-96.0); PLATELET COUNT, AUTOMATED 209 10^3/uL (150-450); RED BLOOD COUNT 3.43 10^6/uL (4.30-6.10); WHITE BLOOD COUNT 12.2 10^3/uL (4.0-10.0)
[2019-04-03] MEDS: SODIUM BICARBONATE 75 MEQ, POTASSIUM CHLORIDE INJ 20 MEQ in NS 0.45% 1,000 ML IV SCH (07:04)
[2019-04-03 07:22] LABS: ALBUMIN 2.3 GM/DL (3.2-5.2); ALT/SGPT 61 U/L (12-78); BILIRUBIN,TOTAL 0.2 MG/DL (0.2-1.0); BLOOD UREA NITROGEN 15 MG/DL (7-18); CALCIUM LEVEL 7.4 MG/DL (8.5-10.1); CARBON DIOXIDE LEVEL 17 MEQ/L (21-32); CHLORIDE LEVEL 119 MEQ/L (98-107); GLOMERULAR FILTRATION RATE > 60.0 (>56); GLUCOSE, FASTING 112 MG/DL (70-100); MAGNESIUM LEVEL 1.9 MG/DL (1.8-2.4); PHOSPHORUS LEVEL 1.5 MG/DL (2.5-4.9); POTASSIUM SERUM 3.5 MEQ/L (3.5-5.1); SODIUM LEVEL 144 MEQ/L (136-145); TOTAL PROTEIN 5.1 GM/DL (6.4-8.2)
[2019-04-03] MEDS: LACTOBACILLUS ACIDOPHILUS CAP (BACID) PO SCH ×3 (08:44→17:25)
[2019-04-03] MEDS: APIXABAN 5 MG TAB (ELIQUIS) PO SCH ×2 (08:44→20:06)
[2019-04-03] MEDS: PANTOPRAZOLE 40MG TAB (PROTONIX) PO SCH (08:44)
[2019-04-03] MEDS: LOMOTIL 2.5MG/0.025MG TABLET PO SCH ×3 (08:45→20:06)
[2019-04-03] MEDS: CYANOCOBALAMIN 500 MCG TAB PO SCH (08:45)
[2019-04-03] MEDS: SODIUM BICARBONATE 325 MG TAB PO SCH ×4 (08:45→20:06)
[2019-04-03] MEDS: POTASSIUM CHLORIDE 10 MEQ SR TABLET PO SCH ×3 (08:45→20:06)
[2019-04-03] MEDS ORDERED: POTASSIUM PHOSPHATE INJ 30 MMOL in D5W 500 ML IV ONE (11:00)
[2019-04-03] MEDS: SODIUM BICARBONATE 150 MEQ, POTASSIUM CHLORIDE INJ 20 MEQ in STERILE WATER LITER BAG 1,... IV SCH ×2 (12:35→22:31)
[2019-04-03 14:00] VITALS: BP 132/86
--- NOTE | 2019-04-03 16:46 | IPNPDOC ---
Date Seen The patient was seen on 04/03/19. Progress Note SUBJECTIVE: 48-year-old male with past medical history of Crohn's disease with persistent severe watery diarrhea, pulmonary embolism (on Eliquis) was admitted for Crohn's flare. He underwent colonoscopy which showed colitis, remains on IV steroids, awaiting insurance prior authorization for Humira. Patient continues to have watery diarrhea today, has severe electrolyte abnormalities and dehyd ration, requiring persistent IV fluids and will address supplementations via IV and oral. He also reports left flank pain, started after receiving Lasix last night, no other complaints at this time. He denies any short of breath, chest pain, nausea, vomiting, abdominal pain. 04/02/2019 Patient reports improvement in diarrhea, only 1 episode so far today, his one set of cultures is growing gram-positive cocci, patient does not appear toxic, patient without any additional complaints at this time, reports resolution of left flank pain. He denies any shortness of breath, chest pain, nausea, vomiting or abdominal pain at this time. 04/03/2019 Patient comfortable, reports improvement, diarrhea, only 4 episodes yesterday, one so far today, tolerating diet, no complaints. 10 point review of systems negative except for above OBJECTIVE PHYSICAL EXAMINATION: VITAL SIGNS: Please see below. GENERAL: No distress HEENT: Normocephalic, atraumatic, moist mucous membranes NECK: Supple CARDIOVASCULAR EXAMINATION: S1, S2, no murmurs RESPIRATORY EXAMINATION: Clear to auscultation, no wheezing ABDOMINAL EXAMINATION: Soft, nontender, nondistended, positive bowel sounds EXTREMITIES: Range of motion intact SKIN: No rash NEUROLOGICAL EXAMINATION: Alert and oriented 3, no focal deficits PSYCHIATRIC EXAMINATION: Calm and cooperative LABORATORY DATA, IMAGING STUDIES, MICROBIOLOGY: Please see below. DVT prophylaxis ordered?: No ASSESSMENT AND PLAN: 48-year-old male with past medical history of Crohn's disease, chronic diarrhea, probably embolism was admitted for Crohn's flareup. PROBLEMS: 1. ?Bacteremia. One set of cultures is preliminary positive for gram-positive cocci, second set remains negative so far, questionable contamination. Patient does have a PICC line, which is of concern, RN attempted to place peripheral IV, unsuccessful, will continue using PICC line for now as patient does not appear toxic, afebrile, without any lab or clinical signs of disseminated infection. Continue vancomycin, repeat cultures negative so far. 2. Crohn's disease: Continue Solu-Medrol, hold Humira given positive blood cultures, if contamination, will give Humira on Friday, diarrhea improving. 3. Severe dehydration and electrolyte abnormalities: Secondary to persistent diarrhea, change fluids to sodium bicarbonate 150 mEq in 1 L of sterile water with 20 mEq of potassium chloride at 100 mL per hour, due to worsening non-anion gap metabolic acidosis from diarrhea, continue oral potassium supplementation as well. 4. Pulmonary embolism: Continue Eliquis DVT prophylaxis: On Eliquis GI prophylaxis: Protonix VS, I&O, 24H, Fishbone Vital Signs/I&O Vital Signs Date Time Temp Pulse Resp B/P (MAP) Pulse Ox O2 Delivery O2 Flow Rate FiO2 04/03/19 14:00 98.3 52 18 132/86 (101) 100 Room Air I&O- Last 24 Hours up to 6 AM 04/03/19 06:00 Intake Total 2830 ml Output Total 1600 ml Balance 1230 ml Laboratory Data 24H LABS Laboratory Tests 2 04/03/19 06:00: Nucleated Red Blood Cells % (auto) 0.0, Anion Gap 8, Glomerular Filtration Rate > 60.0, Calcium Level 7.4L, Phosphorus Level 1.5#L, Magnesium Level 1.9, Total Bilirubin 0.2, Aspartate Amino Transf (AST/SGOT) 23, Alanine Aminotransferase (ALT/SGPT) 61, Alkaline Phosphatase 59, Total Protein 5.1L, Albumin 2.3L, Albumin/Globulin Ratio 0.82L CBC/BMP Laboratory Tests 04/03/19 06:00 Microbiology Microbiology 04/02/19 Blood Culture - Preliminary, Resulted No growth after 24 hours . All specim... 04/02/19 Blood Culture - Preliminary, Resulted No growth after 24 hours . All specim... 04/02/19 Blood Culture - Preliminary, Resulted No growth after 24 hours . All specim... 04/01/19 Blood Culture - Preliminary, Resulted No Growth after 48 hours. All Specime... 04/01/19 Blood Culture - Preliminary, Resulted ALEXIA BABB MD Apr 03, 2019 16:46
[2019-04-03 22:00] VITALS: BP 150/86
[2019-04-04] MEDS: methylPREDNISolone INJ 40 MG/1 ML VIAL (J2920) IV SCH ×3 (00:31→23:26)
[2019-04-04] MEDS: VANCOMYCIN HCL 1,000 MG, VIAL MATE ADAPTER 1 EACH in D5W 250 ML IV SCH ×2 (04:27→16:19)
[2019-04-04] MEDS: SODIUM CHLORIDE 0.9% INJ 10 ML SYR IV SCH ×2 (05:49→11:24)
[2019-04-04 06:00] VITALS: BP 134/80
[2019-04-04 06:24] LABS: HEMOGLOBIN 10.8 g/dl (13.5-17.5); MEAN CORPUSCULAR HEMOGLOBIN 31.7 pg (27.0-33.0); MEAN CORPUSCULAR HGB CONC 32.7 g/dl (32.0-36.5); MEAN CORPUSCULAR VOLUME 96.8 fl (80.0-96.0); PLATELET COUNT, AUTOMATED 239 10^3/uL (150-450); RED BLOOD COUNT 3.41 10^6/uL (4.30-6.10)
[2019-04-04 06:49] LABS: BLOOD UREA NITROGEN 9 MG/DL (7-18); CALCIUM LEVEL 7.8 MG/DL (8.5-10.1); CARBON DIOXIDE LEVEL 26 MEQ/L (21-32); CHLORIDE LEVEL 114 MEQ/L (98-107); GLOMERULAR FILTRATION RATE > 60.0 (>56); GLUCOSE, FASTING 122 MG/DL (70-100); MAGNESIUM LEVEL 1.7 MG/DL (1.8-2.4); PHOSPHORUS LEVEL 1.8 MG/DL (2.5-4.9); SODIUM LEVEL 146 MEQ/L (136-145)
[2019-04-04] MEDS: LACTOBACILLUS ACIDOPHILUS CAP (BACID) PO SCH ×3 (10:50→18:31)
[2019-04-04] MEDS: POTASSIUM CHLORIDE 10 MEQ SR TABLET PO SCH ×3 (10:50→21:32)
[2019-04-04] MEDS: LOMOTIL 2.5MG/0.025MG TABLET PO SCH ×3 (10:51→21:32)
[2019-04-04] MEDS: SODIUM BICARBONATE 325 MG TAB PO SCH ×4 (10:51→21:32)
[2019-04-04] MEDS: CYANOCOBALAMIN 500 MCG TAB PO SCH (10:51)
[2019-04-04] MEDS: PANTOPRAZOLE 40MG TAB (PROTONIX) PO SCH (10:51)
[2019-04-04] MEDS: APIXABAN 5 MG TAB (ELIQUIS) PO SCH ×2 (10:52→21:32)
[2019-04-04 14:00] VITALS: BP 138/88
--- NOTE | 2019-04-04 15:29 | IPNPDOC ---
Text Note Date of Service The patient was seen on 04/04/19. NOTE SUBJECTIVE: 48-year-old male with past medical history of Crohn's disease with persistent severe watery diarrhea, pulmonary embolism (on Eliquis) was admitted for Crohn's flare. He underwent colonoscopy which showed colitis, remains on IV steroids, awaiting insurance prior authorization for Humira. Diarrhea significantly improved. OBJECTIVE PHYSICAL EXAMINATION: VITAL SIGNS: Please see below. GENERAL: No distress HEENT: Normocephalic, atraumatic, moist mucous membranes NECK: Supple CARDIOVASCULAR EXAMINATION: S1, S2, no murmurs RESPIRATORY EXAMINATION: Clear to auscultation, no wheezing ABDOMINAL EXAMINATION: Soft, nontender, nondistended, positive bowel sounds EXTREMITIES: Range of motion intact SKIN: No rash NEUROLOGICAL EXAMINATION: Alert and oriented 3, no focal deficits PSYCHIATRIC EXAMINATION: Calm and cooperative LABORATORY DATA, IMAGING STUDIES, MICROBIOLOGY: Please see below. DVT prophylaxis ordered?: No ASSESSMENT AND PLAN: 48-year-old male with past medical history of Crohn's disease, chronic diarrhea, probably embolism was admitted for Crohn's flareup. PROBLEMS: 1. positive blood culture - likely contaminant - will d/c vancomycin 2. Crohn's disease - continue Solu-Medrol, will give Humira on Friday on f/u with GI - Dr. Huber, diarrhea improving. 3. Severe dehydration and electrolyte abnormalities - improved s/p fluid hydration - continue to monitor 4. Pulmonary embolism: Continue Eliquis #DVT prophylaxis: On Eliquis VS,Fishbone, I+O VS, Fishbone, I+O Laboratory Tests 04/04/19 06:06 Vital Signs Date Time Temp Pulse Resp B/P (MAP) Pulse Ox O2 Delivery O2 Flow Rate FiO2 04/04/19 14:00 97.6 62 18 138/88 (105) 99 Room Air I&O- Last 24 Hours up to 6 AM 04/04/19 06:00 Intake Total 4620 ml Output Total 3145 ml Balance 1475 ml ALAN DAILEY MD Apr 04, 2019 15:29
[2019-04-04] MEDS ORDERED: MAG SULF 1GM/100ML (MAG RUN) 1 GM in IV 1 EA IV ONE (16:00)
[2019-04-04] MEDS: SODIUM CHLORIDE 0.9% INJ 10 ML SYR IV PRN (21:32)
[2019-04-04 22:00] VITALS: BP 146/86
[2019-04-05 06:00] VITALS: BP 124/78
[2019-04-05] MEDS: SODIUM CHLORIDE 0.9% INJ 10 ML SYR IV SCH (06:00)
[2019-04-05 06:37] LABS: BASO % 0.2 % (0.0-1.0); HEMATOCRIT 33.5 % (42.0-52.0); LYMPH # 0.8 10^3/uL (1.5-5.0); LYMPH % 5.9 % (24.0-44.0); MEAN CORPUSCULAR HEMOGLOBIN 31.3 pg (27.0-33.0); MEAN CORPUSCULAR HGB CONC 32.8 g/dl (32.0-36.5); MEAN CORPUSCULAR VOLUME 95.4 fl (80.0-96.0); MONO # 0.4 10^3/uL (0.0-0.8); MONO % 2.6 % (0.0-5.0); NEUTROPHILS # 11.6 10^3/uL (1.5-8.5); NEUTROPHILS % 87.5 % (36.0-66.0); PLATELET COUNT, AUTOMATED 239 10^3/uL (150-450); RED BLOOD COUNT 3.51 10^6/uL (4.30-6.10); WHITE BLOOD COUNT 13.3 10^3/uL (4.0-10.0)
[2019-04-05 06:57] LABS: ERYTHROCYTE SEDIMENTATION RATE 8 mm/hr (0-20)
[2019-04-05 06:58] LABS: ALT/SGPT 62 U/L (12-78); BLOOD UREA NITROGEN 8 MG/DL (7-18); CALCIUM LEVEL 7.8 MG/DL (8.5-10.1); CARBON DIOXIDE LEVEL 29 MEQ/L (21-32); CHLORIDE LEVEL 110 MEQ/L (98-107); CREATININE FOR GFR 0.79 MG/DL (0.70-1.30); GLOMERULAR FILTRATION RATE > 60.0 (>56); GLUCOSE, FASTING 126 MG/DL (70-100); POTASSIUM SERUM 4.5 MEQ/L (3.5-5.1); SODIUM LEVEL 145 MEQ/L (136-145)
[2019-04-05 06:59] LABS: ALBUMIN 2.4 GM/DL (3.2-5.2); BILIRUBIN,TOTAL 0.2 MG/DL (0.2-1.0); C REACTIVE PROTEIN QUANTITATIV < 0.30 MG/DL (0.00-0.30); TOTAL PROTEIN 5.3 GM/DL (6.4-8.2)
[2019-04-05] MEDS: PANTOPRAZOLE 40MG TAB (PROTONIX) PO SCH (08:20)
[2019-04-05] MEDS: APIXABAN 5 MG TAB (ELIQUIS) PO SCH (08:20)
[2019-04-05] MEDS: LACTOBACILLUS ACIDOPHILUS CAP (BACID) PO SCH (08:20)
[2019-04-05] MEDS: LOMOTIL 2.5MG/0.025MG TABLET PO SCH (08:20)
[2019-04-05] MEDS: SODIUM BICARBONATE 325 MG TAB PO SCH (08:20)
[2019-04-05] MEDS: POTASSIUM CHLORIDE 10 MEQ SR TABLET PO SCH (08:21)
[2019-04-05] MEDS: CYANOCOBALAMIN 500 MCG TAB PO SCH (08:21)
[2019-04-05] MEDS ORDERED: PRED10TA2 PO (12:00)
--- NOTE | 2019-04-05 13:46 | DS.PDOC ---
Discharge Summary General Date of Admission Mar 26, 2019 at 16:21 Date of Discharge 04/05/19 Specialist/Consultants Involve: TAURUS HUBER MD Discharge Summary PROCEDURES PERFORMED DURING STAY: [None]. DISCHARGE DIAGNOSES: 1. Crohn's flare 2. dehydration/electrolyte derangement SECONDARY DIAGNOSES: 1. pulmonary embolism COMPLICATIONS/CHIEF COMPLAINT: Acute Kidney Injury,Crohns Colitis. HISTORY OF PRESENT ILLNESS: 48year old male with PMHx of Crohn's disease diagnosed in September 2018, Psoriatic arthritis, H/O Staphylococcus aureus pneumonia with cavitary lesions, Pulmonary embolism, Asthma, C. 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 patient had been having increasing abdominal pain crampy in nature mostly LLQ about 7/10 in intensity during cramps presenting on the whole of the left side associated with watery diarrhea about 10 to 12 episodes a day without any blood in it. Patient went to see Dr Huber 2 days prior and his prednisone was doubled and also he was started on hyocyamine ER tablets which seemed to help a little. He has been having regular food without any nausea or vomiting. He had a C diff checked at the office on 03/24 which was negative. On day of admission, his blood work was repeated in the office and showed dehydration and rise in creatinine with ongoing persistent severe diarrhea so was sent to ED. He was admitted for Crohn's disease flare and MOON and dehydration. HOSPITAL COURSE: Patient responded well to IV fluid hydration, with steroid therapy. His diarrhea resolved. His electrolyte derangements resolved with IV fluid therapy. One blood culture returned positive, but several repeat cultures were persistently negative, and as such initial positive culture deemed to be contaminant. He was temporarily receiving Vancomycin for concern of bacteremia. Given no infection detected, his Humira was restarted. GI consulted for further direction, and patient discharged home for outpatient follow up. Some concern for repeated flares and hospitalizations. Paper work sent to PCP for possible setup for outpatient IV fluid infusion with [place]. Extended steroid taper. DISCHARGE MEDICATIONS: Please see below. ALLERGIES: Please see below. PHYSICAL EXAMINATION ON DISCHARGE: VITAL SIGNS: Please see below. GENERAL: No distress HEENT: Normocephalic, atraumatic, moist mucous membranes NECK: Supple CARDIOVASCULAR EXAMINATION: S1, S2, no murmurs RESPIRATORY EXAMINATION: Clear to auscultation, no wheezing ABDOMINAL EXAMINATION: Soft, nontender, nondistended, positive bowel sounds EXTREMITIES: Range of motion intact SKIN: No rash NEUROLOGICAL EXAMINATION: Alert and oriented 3, no focal deficits PSYCHIATRIC EXAMINATION: Calm and cooperative LABORATORY DATA: Please see below. ACTIVITY: [As tolerated]. DISPOSITION: Discharge home DISCHARGE INSTRUCTIONS: 1. PCP in 3-5 days 2. GI in 3-7 days DISCHARGE CONDITION: [Stable]. TIME SPENT ON DISCHARGE: 35 minutes. Vital Signs/I&Os Vital Signs Date Time Temp Pulse Resp B/P (MAP) Pulse Ox O2 Delivery O2 Flow Rate FiO2 04/05/19 06:00 98.1 70 18 124/78 (93) 96 Room Air I&O- Last 24 Hours up to 6 AM 04/05/19 05:59 Intake Total 2730 ml Output Total 2575 ml Balance 155 ml Laboratory Data Labs 24H Laboratory Tests 2 04/04/19 16:12: Vancomycin Level Trough 9.9L 04/05/19 06:22: Immature Granulocyte % (Auto) 3.8H, Neutrophils (%) (Auto) 87.5H, Lymphocytes (%) (Auto) 5.9L, Monocytes (%) (Auto) 2.6, Eosinophils (%) (Auto) 0.0, Basophils (%) (Auto) 0.2, Neutrophils # (Auto) 11.6H, Lymphocytes # (Auto) 0.8L, Monocytes # (Auto) 0.4, Eosinophils # (Auto) 0.0, Basophils # (Auto) 0.0, Nucleated Red Blood Cells % (auto) 0.0, Erythrocyte Sedimentation Rate 8, Anion Gap 6L, Glomerular Filtration Rate > 60.0, Calcium Level 7.8L, Magnesium Level 1.9, Total Bilirubin 0.2, Aspartate Amino Transf (AST/SGOT) 16, Alanine Aminotransferase (ALT/SGPT) 62, Alkaline Phosphatase 63, C-Reactive Protein, Quantitative < 0.30, Total Protein 5.3L, Albumin 2.4L, Albumin/Globulin Ratio 0.83L CBC/BMP Laboratory Tests 04/05/19 06:22 Microbiology Microbiology 04/02/19 Blood Culture - Preliminary, Resulted No Growth after 48 hours. All Specime... 04/02/19 Blood Culture - Preliminary, Resulted No Growth after 48 hours. All Specime... 04/02/19 Blood Culture - Preliminary, Resulted No Growth after 72 hours. All specime... 04/01/19 Blood Culture - Preliminary, Resulted No Growth after 72 hours. All specime... 04/01/19 Blood Culture - Final, Complete Staphylococcus Hominis Discharge Medications Scheduled Adalimumab (Humira(Cf) Pen) 40 Mg/0.4 Ml Pen.ij.kit, 40 MG SQ Q2WK, (Reported) EVERY OTHER FRIDAY Adalimumab (Humira Pen) 40 Mg/0.8 Ml Pen.ij.kit, 80 MG SC qwk Apixaban (Eliquis) 5 Mg Tablet, 5 MG PO BID, (Reported) Cholestyramine (with Sugar) (Questran Packet) 4 Gm Powd.pack, 4 GM PO TID, (Reported) Cyanocobalamin (Vitamin B-12) (Vitamin B-12) 1,000 Mcg Tablet, 1,000 MCG PO DAILY, (Reported) Ergocalciferol (Vitamin D2) (Vitamin D2) 50,000 Unit Capsule, 50,000 UNIT PO QWE EK, (Reported) TUESDAYS Ferrous Gluconate (Iron) 240 Mg Tablet, 27 MG PO DAILY, (Reported) Hyoscyamine Sulfate (Hyoscyamine Sulfate ER) 0.375 Mg Tab.er.12h, 0.375 MG PO Q12H, (Reported) Lactobacillus Acidophilus (Acidophilus) 1 Each Capsule, 1 CAP PO DAILY, (Reported) Magnesium Chloride (Mag64) 64 Mg Tablet.dr, 128 MG PO DAILY, (Reported) Mesalamine (Pentasa) 500 Mg Capsule.er, 500 MG PO QID, (Reported) Multivitamin (Multivitamins) 1 Each Tablet, 1 TAB PO DAILY, (Reported) Prednisone (Prednisone) 10 Mg Tablet, 10 MG PO TAPER 6tab [id number],then 5tab [id number],then 4tab [id number],then 3tab [id number],then 2tab [id number], then 1tab dailyxday Scheduled PRN Acetaminophen (Acetaminophen) 325 Mg Tablet, 650 MG PO Q6H PRN for PAIN, (Reported) Calcium Carbonate (Tums) 200 Mg Tab.chew, 1,500 MG PO QID PRN for INDIGESTION, (Reported) Diphenhydramine HCl (Diphenhydramine HCl) 50 Mg Capsule, 50 MG PO Q6H PRN for ITCHING, (Reported) Diphenhydramine HCl/Zinc Acet (Benadryl Itch Stopping Crm) 28.3 Gm Cream..g., 1 DOSE TOP TID PRN for RASH/ITCHING, (Reported) Loperamide HCl (Loperamide) 2 Mg Capsule, 4 MG PO Q6H PRN for DIARRHEA, (Reported) Allergies Coded Allergies: epinephrine (Verified Adverse Reaction, Intermediate, HIGH DOSE EPI - SEVERE SVT, 09/08/18) codeine (Verified Adverse Reaction, Mild, hallucinations, 09/08/18) ALAN DAILEY MD Apr 05, 2019 13:46
== END 2019-04-05 14:00 | disposition home or self-care (01) | DRG 386 ==
LOC: M ED 12:28 → M ED INP 16:21 → M MS5PR 18:05
PROVIDERS: ADMIT Internal Medicine Nephrology; ATTEND Internal Medicine
PROC: 02HV33Z Insertion of Infusion Device into Superior Vena Cava, Percutaneous Approach (ICD-10-PCS; 2019-03-26)
PROC: 0DBP8ZX Excision of Rectum, Via Natural or Artificial Opening Endoscopic, Diagnostic (ICD-10-PCS; 2019-03-27)
PROC: 0DBB8ZX Excision of Ileum, Via Natural or Artificial Opening Endoscopic, Diagnostic (ICD-10-PCS; principal; 2019-03-27 13:00)
DX: K50.00 Crohn's disease of small intestine without complications (principal); N17.9 Acute kidney failure, unspecified; I27.82 Chronic pulmonary embolism; E87.2 Acidosis; E86.0 Dehydration; L40.50 Arthropathic psoriasis, unspecified; J45.909 Unspecified asthma, uncomplicated; Z79.899 Other long term (current) drug therapy; Z88.5 Allergy status to narcotic agent; Z88.8 Allergy status to other drugs, medicaments and biological substances; Z79.52 Long term (current) use of systemic steroids; Z87.891 Personal history of nicotine dependence; Z79.01 Long term (current) use of anticoagulants; E55.9 Vitamin D deficiency, unspecified; E53.8 Deficiency of other specified B group vitamins; E87.6 Hypokalemia

== ENCOUNTER → 2019-04-06 | Outpatient (CLI) | payer OTHER ==
[~2019-04-06] MED LIST changes: +BENA2CRE3 TOP; +CVS2500C PO; +CVS27TAB2 PO; +CYAN100050 PO; +DIPH50CA PO; +HUMI40IN2 SQ; +HYOS0.374 PO; +IRON27TA2 PO; +SM A10CA PO; +VITA500045 PO
== END ==
LOC: M LRY 12:33
PROVIDERS: ATTEND Internal Medicine Gastroenterology
DX: K50.818 Crohn's disease of both small and large intestine with other complication (principal)

== ENCOUNTER → 2019-04-27 | Outpatient (CLI) | payer OTHER ==
[2019-04-27 17:10] LABS: BASO # 0.1 10^3/uL (0.0-0.2); BASO % 0.6 % (0.0-1.0); EOS # 0.1 10^3/uL (0.0-0.5); EOS % 0.8 % (0.0-3.0); HEMATOCRIT 39.3 % (42.0-52.0); HEMOGLOBIN 12.1 g/dl (13.5-17.5); LYMPH % 11.2 % (24.0-44.0); MEAN CORPUSCULAR HEMOGLOBIN 31.2 pg (27.0-33.0); MEAN CORPUSCULAR HGB CONC 30.8 g/dl (32.0-36.5); MEAN CORPUSCULAR VOLUME 101.3 fl (80.0-96.0); MONO # 0.4 10^3/uL (0.0-0.8); MONO % 4.3 % (0.0-5.0); NEUTROPHILS # 6.7 10^3/uL (1.5-8.5); NEUTROPHILS % 78.1 % (36.0-66.0); PLATELET COUNT, AUTOMATED 199 10^3/uL (150-450); RED BLOOD COUNT 3.88 10^6/uL (4.30-6.10); WHITE BLOOD COUNT 8.6 10^3/uL (4.0-10.0)
[2019-04-27 17:17] LABS: ALBUMIN 3.5 GM/DL (3.2-5.2); ALT/SGPT 56 U/L (12-78); BILIRUBIN,TOTAL 0.5 MG/DL (0.2-1.0); BLOOD UREA NITROGEN 16 MG/DL (7-18); CALCIUM LEVEL 8.6 MG/DL (8.5-10.1); CARBON DIOXIDE LEVEL 25 MEQ/L (21-32); CHLORIDE LEVEL 109 MEQ/L (98-107); CREATININE FOR GFR 0.69 MG/DL (0.70-1.30); GLOMERULAR FILTRATION RATE > 60.0 (>56); GLUCOSE, FASTING 137 MG/DL (70-100); POTASSIUM SERUM 4.5 MEQ/L (3.5-5.1); SODIUM LEVEL 140 MEQ/L (136-145); TOTAL PROTEIN 6.5 GM/DL (6.4-8.2)
== END ==
LOC: M LRY 12:18
PROVIDERS: ATTEND Internal Medicine Gastroenterology
DX: K50.818 Crohn's disease of both small and large intestine with other complication (principal)

== ENCOUNTER 2019-05-10 10:09 | Observation (INO) | payer OTHER ==
[~2019-05-10] VITALS: Ht 190.5 cm; Wt 102.2 kg
[2019-05-10] MEDS ORDERED: NS 1,000 ML IV ONE (11:00)
[2019-05-10] MEDS ORDERED: ATOV5SUS PO (11:09)
[2019-05-10] MEDS ORDERED: AZAT50TA2 PO (11:09)
[2019-05-10] MEDS ORDERED: LOPE-39 PO (11:10)
[2019-05-10] MEDS ORDERED: PEPT262C2 PO (11:10)
[2019-05-10 11:42] LABS: BASO % 0.2 % (0.0-1.0); EOS % 0.4 % (0.0-3.0); HEMOGLOBIN 14.4 g/dl (13.5-17.5); LYMPH # 0.7 10^3/uL (1.5-5.0); LYMPH % 7.7 % (24.0-44.0); MEAN CORPUSCULAR HEMOGLOBIN 30.3 pg (27.0-33.0); MEAN CORPUSCULAR HGB CONC 31.3 g/dl (32.0-36.5); MEAN CORPUSCULAR VOLUME 96.6 fl (80.0-96.0); MONO # 0.5 10^3/uL (0.0-0.8); MONO % 5.9 % (0.0-5.0); NEUTROPHILS # 7.8 10^3/uL (1.5-8.5); NEUTROPHILS % 84.7 % (36.0-66.0); PLATELET COUNT, AUTOMATED 244 10^3/uL (150-450); RED BLOOD COUNT 4.76 10^6/uL (4.30-6.10); WHITE BLOOD COUNT 9.2 10^3/uL (4.0-10.0)
[2019-05-10 12:18] LABS: ALBUMIN 3.3 GM/DL (3.2-5.2); BILIRUBIN,DIRECT 0.2 MG/DL (0.0-0.2); BILIRUBIN,TOTAL 0.6 MG/DL (0.2-1.0); TOTAL PROTEIN 6.9 GM/DL (6.4-8.2)
[2019-05-10] MEDS ORDERED: VANCOMYCIN ORAL SOL 250MG/5ML ORAL SYRINGE PO STA (12:42)
[2019-05-10] MEDS ORDERED: VITA50005 PO (13:20)
[2019-05-10] MEDS ORDERED: PEPT262S PO (13:20)
[2019-05-10] MEDS ORDERED: PRED10TA2 PO (13:20)
[2019-05-10] MEDS ORDERED: CALCIUM CARBONATE 500 MG CHEW U/D PO PRN (14:45)
[2019-05-10] MEDS ORDERED: CHOLESTYRAMINE 4 GM PWD PKT PO PRN (14:45)
[2019-05-10] MEDS ORDERED: MESALAMINE 250 MG CR CAP PO PRN (14:45)
[2019-05-10] MEDS ORDERED: diphenhydrAMINE 50 MG CAP PO PRN (14:45)
[2019-05-10] MEDS ORDERED: ALBUTEROL SULFATE 2.5 MG/0.5 ML INH NEB SOLN INH PRN (15:00)
--- NOTE | 2019-05-10 15:29 | HPE ---
DATE OF ADMISSION: 05/10/2019 CHIEF COMPLAINT: Enteritis from cryptosporidium and Clostridium (C.) difficile colitis. HISTORY: The patient is a 48-year-old immunosuppressed for Crohn's disease and psoriatic arthritis, history of Staphylococcus aureus pneumoniae with cavitary lesions, pulmonary embolism on chronic anticoagulant therapy, asthma, and previous C difficile colitis with several hospitalizations, status post stool transplant in January 2019, who presented to the emergency room with what he thought was a flare of his Crohn's but turned out to be enteritis secondary to Clostridium (C.) difficile colitis and cryptosporidium. He has been having several watery stools with crampy abdominal pain. PAST MEDICAL HISTORY: 1. Crohn's disease, followed by Dr. Huber. 2. Psoriatic arthritis. 3. History of Staphylococcus aureus pneumoniae with cavitary lesions, followed by Dr. Auguste. 4. History of pulmonary embolism. 5. History of asthma. 6. History of C difficile colitis with multiple hospitalizations and stool transplant in January 2019, followed by Dr. Caitlin Cao from infectious disease. SURGICAL HISTORY: 1. Colonoscopy times two in 2019. 2. Bronchoscopy in 2019. 3. Upper endoscopy in 2019. FAMILY HISTORY: Father of non Hodgkin's lymphoma and pulmonary embolism. Mother has pulmonary hypertension and coronary artery disease. SOCIAL HISTORY: He does not smoke or drink any alcohol. 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 REVIEW OF SYSTEMS: No chest pain, cough, hemoptysis, fever, chills. MEDICATIONS: - Humira every 2 weeks - Eliquis 5 mg twice a day - Atovaquone 750 mg suspension 1500 mg daily - Imuran 100 mg daily - Pepto Bismol as needed - calcium carbonate as needed - cholestyramine 4 grams three times a day as needed for diarrhea - B12 1000 mcg by mouth daily - Benadryl as needed - vitamin D 50,000 units weekly - ferrous gluconate daily - hyoscyamine 0.375 mg every 12 hours as needed - lactobacillus - Imodium 2 mg every 6 hours - magnesium chloride 64 mg two tablets daily - mesalamine 500 mg four times a day - multivitamin daily - prednisone 10 mg daily ALLERGIES: EPINEPHRINE, CODEINE PHYSICAL EXAMINATION: 124/78, pulse 78, respiratory rate 18, 96% oxygen saturation, 98 degrees. GENERAL APPEARANCE: He is resting comfortably in the emergency room, looks well. No distress. HEENT: Mucous membranes are moist. Tympanic membranes and oropharynx benign. LUNGS: Clear. HEART: No murmur. ABDOMEN: Soft, mildly tender in the lower abdomen. No guarding, rebound or referred pain. EXTREMITIES: No clubbing, cyanosis or edema. No warmth, redness or swelling of the joints. LABORATORIES: White count 9.2, hemoglobin 14, platelets 244. Sodium 142, potassium 4.1, BUN 16, creatinine 0.8. Urinalysis looks clear. GI panel is positive for both C difficile as well as cryptosporidium. IMPRESSION: 1. Enteritis secondary to Clostridium (C.) difficile colitis and cryptosporidium. The patient is immunosuppressed. He has seen Dr. Caitlin Cao in the past. I have reached and though she is off on vacation she has graciously contacted me to advise vancomycin 250 mg every 6 hours until she sees the patient in her office in followup and nitazoxanide 500 mg twice a day for 14 days, this is an extended course advised due to immunosuppression. 2. Immunosuppressed state. We will adjust treatment for colitis, as noted above. Vital signs are stable and if he drops his blood pressure we will give some hydrocortisone, but I think that he is adequately covered with his current dose. 3. History of recurrent Clostridium (C.) difficile colitis. Probiotic has been ordered. Would recommend that he stay on extended course of vancomycin 250 mg every 6 hours until he sees Dr. Cao. He required a stool transplant earlier this year. 4. History of pulmonary embolism. Continue Eliquis. Early ambulation advised. 5. History of asthma. Nebulized bronchodilator ordered if necessary and as needed for shortness of breath. 6. Psoriatic arthritis. Continue his immunosuppressants. Note, his primary care provider, Dr. Morris, is managing his immunizations. He received his Prevnar 13 earlier this year and he is due for Pneumovax 23 his next visit. I would not advise this be given while inpatient as it is already being managed by his primary care provider.
[2019-05-10 16:02] VITALS: BP 155/87
[2019-05-10] MEDS: LACTOBACILLUS ACIDOPHILUS CAP (BACID) PO SCH (17:25)
[2019-05-10] MEDS: LR 1,000 ML IV SCH ×2 (17:26→23:48)
[2019-05-10] MEDS: ACETAMINOPHEN TAB 650MG DOSE (2X325MG) PO PRN (18:59)
[2019-05-10] MEDS: PINK BISMUTH SUSP 524MG/30ML ORAL SYRINGE PO SCH ×2 (20:29→23:48)
[2019-05-10] MEDS: VANCOMYCIN ORAL SOL 250MG/5ML ORAL SYRINGE PO SCH ×2 (20:29→23:48)
[2019-05-10] MEDS: APIXABAN 5 MG TAB (ELIQUIS) PO SCH (20:30)
[2019-05-10] MEDS: NITAZOXANIDE 500 MG TAB (ALINIA) PO SCH (21:00)
[2019-05-10 22:00] VITALS: BP 143/86
[2019-05-11 02:00] VITALS: BP 110/62
[2019-05-11] MEDS: ACETAMINOPHEN TAB 650MG DOSE (2X325MG) PO PRN ×2 (04:01→11:49)
[2019-05-11 06:00] VITALS: BP_SYST 117; BP_SYST 140; BP_DIAS 68; BP_DIAS 85
[2019-05-11] MEDS: PINK BISMUTH SUSP 524MG/30ML ORAL SYRINGE PO SCH ×2 (06:18→11:44)
[2019-05-11] MEDS: LR 1,000 ML IV SCH ×2 (06:18→10:45)
[2019-05-11] MEDS: VANCOMYCIN ORAL SOL 250MG/5ML ORAL SYRINGE PO SCH ×2 (06:18→11:35)
[2019-05-11 07:05] LABS: HEMATOCRIT 42.9 % (42.0-52.0); HEMOGLOBIN 13.4 g/dl (13.5-17.5); MEAN CORPUSCULAR HGB CONC 31.2 g/dl (32.0-36.5); MEAN CORPUSCULAR VOLUME 96.2 fl (80.0-96.0); PLATELET COUNT, AUTOMATED 261 10^3/uL (150-450); RED BLOOD COUNT 4.46 10^6/uL (4.30-6.10); WHITE BLOOD COUNT 8.7 10^3/uL (4.0-10.0)
[2019-05-11 07:14] LABS: BLOOD UREA NITROGEN 15 MG/DL (7-18); CALCIUM LEVEL 8.2 MG/DL (8.5-10.1); CARBON DIOXIDE LEVEL 20 MEQ/L (21-32); CHLORIDE LEVEL 109 MEQ/L (98-107); GLOMERULAR FILTRATION RATE > 60.0 (>56); GLUCOSE, FASTING 81 MG/DL (70-100); POTASSIUM SERUM 3.5 MEQ/L (3.5-5.1); SODIUM LEVEL 138 MEQ/L (136-145)
[2019-05-11] MEDS: NITAZOXANIDE 500 MG TAB (ALINIA) PO SCH (08:54)
[2019-05-11] MEDS: APIXABAN 5 MG TAB (ELIQUIS) PO SCH (08:54)
[2019-05-11] MEDS: LACTOBACILLUS ACIDOPHILUS CAP (BACID) PO SCH ×2 (08:54→11:35)
[2019-05-11] MEDS ORDERED: MAGNESIUM CHLORIDE 64 MG TABCR (SLO MAG) PO SCH (09:00)
[2019-05-11] MEDS ORDERED: predniSONE 10 MG TAB PO SCH (09:00)
[2019-05-11] MEDS ORDERED: ATOVAQUONE SUSP 750MG/5ML 210 ML BTL PO SCH (09:00)
[2019-05-11] MEDS ORDERED: azaTHIOprine 50 MG TAB (J7500) PO SCH (09:00)
[2019-05-11] MEDS ORDERED: FIRV50SO PO (10:59)
[2019-05-11] MEDS ORDERED: ALIN500T2 PO (10:59)
--- NOTE | 2019-05-11 12:05 | DS.PDOC ---
Discharge Summary General Date of Admission May 10, 2019 at 10:10 Date of Discharge 05/11/19 Discharge Summary PROCEDURES PERFORMED DURING STAY: None. ADMITTING DIAGNOSES: 1. C. difficile colitis, cryptosporidium. DISCHARGE DIAGNOSES: 1. , C. difficile colitis, cryptosporidium. COMPLICATIONS/CHIEF COMPLAINT: C. Difficile Colitis,Intestinal Cryptoporidiosis. 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 He has been having several watery stools with crampy abdominal pain.. HOSPITAL COURSE: Patient was admitted with the diagnosis of C. difficile colitis and cryptosporidium. Patient was started on by mouth Vanco and nitaxosamide. Case was discussed with Dr. Ponce by Dr. Eaton and was agreed to continue patient on the current medications for 2 weeks until he follows up with Dr. Veloz an outpatient. Patient is clinically stable. No more abdominal than decreased diarrhea. Wishes to go home for [place] and does not really want to stay in the hospital anymore, but will follow up with Dr. ag an outpatient. Patient will be discharged home today and follow with infectious diseases outpatient in one week and will continue patient on 2 different antibiotics as recommended by ID for 2 weeks. DISCHARGE MEDICATIONS: Please see below. ALLERGIES: Please see below. PHYSICAL EXAMINATION ON DISCHARGE: VITAL SIGNS: Please see below. GENERAL: Within normal limits HEENT: Extraocular muscles intact NECK: Supple CARDIOVASCULAR EXAMINATION: S1, S2, regular RESPIRATORY EXAMINATION: Clear to A&P ABDOMINAL EXAMINATION: , Soft, nontender. Bowels are present. No organomegaly EXTREMITIES: No clubbing, cyanosis, edema SKIN: Normal NEUROLOGICAL EXAMINATION: Focal motor sensory deficit PSYCHIATRIC EXAMINATION: Normal LABORATORY DATA: Please see below. IMAGING: As per EMR PROGNOSIS: Good ACTIVITY: As tolerated. DIET: As tolerated DISCHARGE PLAN: As per discharge instruction DISPOSITION: . Home DISCHARGE INSTRUCTIONS: 1. As per discharge instructions. ITEMS TO FOLLOWUP ON ON OUTPATIENT: 1. Follow with Dr. palmer in one week DISCHARGE CONDITION: Stable. TIME SPENT ON DISCHARGE: 35 minutes. Vital Signs/I&Os Vital Signs Date Time Temp Pulse Resp B/P (MAP) Pulse Ox O2 Delivery O2 Flow Rate FiO2 05/11/19 06:00 97.9 75 17 140/85 (103) 95 Room Air I&O- Last 24 Hours up to 6 AM 05/11/19 06:00 Intake Total 3095 ml Output Total 0 ml Balance 3095 ml Laboratory Data Labs 24H Laboratory Tests 2 05/10/19 13:34: Urine Color YELLOW, Urine Appearance CLEAR, Urine pH 5.0, Urine Specific [place] 1.006, Urine Protein NEGATIVE, Urine Glucose (UA) NEGATIVE, Urine Ketones NEGATIVE, Urine Blood NEGATIVE, Urine Nitrite NEGATIVE, Urine Bilirubin NEGATIVE, Urine Urobilinogen 0.2, Urine Leukocyte Esterase NEGATIVE, Urine WBC (Auto) 0, Urine RBC (Auto) 0, Urine Hyaline Casts (Auto) 1, Urine Bacteria (Auto) NEGATIVE, Urine Squamous Epithelial Cells 0, Urine Mucus (Auto) SMALL, Urine Sperm (Auto) 05/11/19 06:39: Nucleated Red Blood Cells % (auto) 0.0, Anion Gap 9, Glomerular Filtration Rate > 60.0, Calcium Level 8.2L CBC/BMP Laboratory Tests 05/11/19 06:39 Microbiology Microbiology 05/10/19 Gastrointestinal Tract Panel (PCR) - Final, Complete Cryptosporidium Sp Clostridium Difficile A/B Discharge Medications Scheduled Adalimumab (Humira(Cf) Pen) 40 Mg/0.4 Ml Pen.ij.kit, 80 MG SQ Q2WK, (Reported) EVERY OTHER FRIDAY Apixaban (Eliquis) 5 Mg Tablet, 5 MG PO BID, (Reported) Atovaquone (Atovaquone) 750 Mg/5 Ml Oral.susp, 1,500 MG PO DAILY, (Reported) Azathioprine (Azathioprine) 50 Mg Tablet, 100 MG PO DAILY, (Reported) Bismuth Subsalicylate (Pepto-Bismol) 262 Mg/15 Ml Oral.susp, 30 ML PO Q6H, (Reported) Cyanocobalamin (Vitamin B-12) (Vitamin B-12) 1,000 Mcg Tablet, 1,000 MCG PO DAILY, (Reported) Ergocalciferol (Vitamin D2) (Vitamin D2) 50,000 Units Cap, 50,000 UNITS PO QWEEK, (Reported) TUESDAYS Ferrous Gluconate (Iron) 240 Mg Tablet, 27 MG PO DAILY, (Reported) Lactobacillus Acidophilus (Acidophilus) 1 Each Capsule, 1 CAP PO DAILY, (Reported) Loperamide HCl (Imodium A-D) 2 Mg Capsule, 2 MG PO Q6H, (Reported) Magnesium Chloride (Mag64) 64 Mg Tablet.dr, 128 MG PO DAILY, (Reported) Multivitamin (Multivitamins) 1 Each Tablet, 1 TAB PO DAILY, (Reported) Nitazoxanide (Alinia) 500 Mg Tablet, 500 MG PO BID Prednisone (Prednisone) 10 Mg Tablet, 10 MG PO ASDIRECTED, (Reported) PATIENT WAS ON A TAPERING DOSE - ON 05/09/19 PATIENT INCREASED TO 40MG DUE TO FLARE UP Vancomycin HCl (Firvanq) 50 Mg/1 Ml Soln.recon, 250 MG PO Q6H Scheduled PRN Acetaminophen (Acetaminophen) 325 Mg Tablet, 650 MG PO Q6H PRN for PAIN, (Reported) Calcium Carbonate (Tums) 200 Mg Tab.chew, 1,500 MG PO QID PRN for INDIGESTION, (Reported) Cholestyramine (with Sugar) (Questran Packet) 4 Gm Powd.pack, 4 GM PO TID PRN for , (Reported) Diphenhydramine HCl (Diphenhydramine HCl) 50 Mg Capsule, 50 MG PO Q6H PRN for ITCHING, (Reported) Diphenhydramine HCl/Zinc Acet (Benadryl Itch Stopping Crm) 28.3 Gm Cream..g., 1 DOSE TOP TID PRN for RASH/ITCHING, (Reported) Hyoscyamine Sulfate (Hyoscyamine Sulfate ER) 0.375 Mg Tab.er.12h, 0.375 MG PO Q12H PRN for ABDOMINAL PAIN, (Reported) Mesalamine (Pentasa) 500 Mg Capsule.er, 500 MG PO QID PRN for CHRONS FLARE UP, (Reported) Allergies Coded Allergies: epinephrine (Verified Adverse Reaction, Intermediate, HIGH DOSE EPI - SEVERE SVT, 09/08/18) codeine (Verified Adverse Reaction, Mild, hallucinations, 09/08/18) ALDAIR FLORES MD May 11, 2019 12:05
[2019-05-12] MEDS ORDERED: ALIN500T2 PO (23:05)
[2019-05-12] MEDS ORDERED: FERR325T16 PO (23:05)
[2019-05-12] MEDS ORDERED: BACITAB PO (23:05)
[2019-05-12] MEDS ORDERED: ACET-897 PO (23:05)
[2019-05-12] MEDS ORDERED: VANC250C3 PO (23:05)
== END 2019-05-11 12:03 | disposition home or self-care (01) ==
LOC: EEVIPCON 10:09 → M ED 10:09 → M ED INP 10:10 → M MSPAV 16:02
PROVIDERS: ADMIT Family Medicine; ATTEND Internal Medicine Nephrology
DX: A04.71 Enterocolitis due to Clostridium difficile, recurrent (principal); A07.2 Cryptosporidiosis; K50.90 Crohn's disease, unspecified, without complications; L40.50 Arthropathic psoriasis, unspecified; J45.909 Unspecified asthma, uncomplicated; Z86.19 Personal history of other infectious and parasitic diseases; Z94.89 Other transplanted organ and tissue status; Z86.711 Personal history of pulmonary embolism; Z79.899 Other long term (current) drug therapy; Z79.01 Long term (current) use of anticoagulants; Z79.52 Long term (current) use of systemic steroids; Z79.2 Long term (current) use of antibiotics; Z88.5 Allergy status to narcotic agent; Z88.8 Allergy status to other drugs, medicaments and biological substances
CPT/HCPCS: 36415; 80047; 80048; 80076; 81001; 82150; 83605; 83690; 85025; 85027; 87507; 96360; 99284; J7500

== ENCOUNTER 2019-05-12 21:43 | Inpatient (IN) | payer OTHER ==
[~2019-05-12] VITALS: Ht 190.5 cm; Wt 98.0 kg
[~2019-05-12 21:43] MED LIST changes: +ALIN500T2 PO; +AZAT50TA2 PO; +FIRV50SO PO; +LOPE-39 PO; +PEPT262C2 PO; +VITA50005 PO
[2019-05-12] MEDS ORDERED: NS 1,000 ML IV ONE ×2 (22:30→23:45)
[2019-05-12] MEDS ORDERED: BACITAB PO (23:05)
[2019-05-12] MEDS ORDERED: VANC250C3 PO (23:05)
[2019-05-12] MEDS ORDERED: ACET-897 PO (23:05)
[2019-05-12] MEDS ORDERED: ALIN500T2 PO (23:05)
[2019-05-12] MEDS ORDERED: FERR325T16 PO (23:05)
[2019-05-12] MEDS ORDERED: diphenhydrAMINE 50 MG CAP PO PRN (23:45)
[2019-05-12] MEDS ORDERED: CHOLESTYRAMINE 4 GM PWD PKT PO PRN (23:45)
[2019-05-12] MEDS ORDERED: PINK BISMUTH SUSP 524MG/30ML ORAL SYRINGE PO PRN (23:45)
[2019-05-12 23:56] LABS: BASO # 0.1 10^3/uL (0.0-0.2); BASO % 0.7 % (0.0-1.0); EOS % 0.2 % (0.0-3.0); HEMATOCRIT 47.3 % (42.0-52.0); HEMOGLOBIN 15.3 g/dl (13.5-17.5); LYMPH # 1.3 10^3/uL (1.5-5.0); LYMPH % 10.7 % (24.0-44.0); MEAN CORPUSCULAR HEMOGLOBIN 30.6 pg (27.0-33.0); MEAN CORPUSCULAR HGB CONC 32.3 g/dl (32.0-36.5); MEAN CORPUSCULAR VOLUME 94.6 fl (80.0-96.0); MONO # 1.1 10^3/uL (0.0-0.8); MONO % 9.2 % (0.0-5.0); NEUTROPHILS # 9.4 10^3/uL (1.5-8.5); NEUTROPHILS % 78.5 % (36.0-66.0); PLATELET COUNT, AUTOMATED 292 10^3/uL (150-450)
--- NOTE | 2019-05-13 00:48 | HPEPDOC ---
[facility] Medical History & Physical Date of Admission May 13, 2019 Date of Service: May 13, 2019 Attending Physician: ALEXIA BABB MD History and Physical CHIEF COMPLAINT: Diarrhea/dehydration HISTORY OF PRESENT ILLNESS: Patient is a 48 year old male chronically immunosuppressed for crohns disease who presented to the [facility] ER with a complaint of nonbloody diarrhea. The patient was recently hospitalized on 05/10/2019 and found to have C. difficile and cryptosporidium. The patient has a history of C. 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 The patient was recently started on Vancomycin and Nitazoxanide. Reportedly the patients diarrhea was improving and he was discharged. Unfortunately after returning home he continued to have diarrhea and was unable to keep hydrated. He reported feeling weak and stated that he has had little urination since returning home. The patient decided to return to the ER for further evaluation. In the ER the patient was found to be vitally stable. He had a mild elevation in WBC. His lactic acid was 1.6. His BMP and liver profile are currently pending. PAST MEDICAL HISTORY: 1. Crohn's Disease on Immunosuppression 2. Psoriatic Arthritis 3. History of S. aureus pnumoniae with cavitary lesions 4. History of Pulmonary Embolism on Eliquis 5. Asthma 6. History of C. difficile colitis s/p stool transplant in 01/2019 PAST SURGICAL HISTORY: 1. Colonoscopy x2 2018 2. Bronchoscopy 2018 3. 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 He is a nonsmoker and nondrinker. He denies any IV or illicit drug use FAMILY HISTORY: Patients father of Hodgkin's lymphoma and Pulmonary embolism. Mother has a history of pulmonary hypertension and coronary artery disease ALLERGIES: Please see below. REVIEW OF SYSTEMS: CONSTITUTIONAL: Denies fevers, chills, night-sweats, unintentional weight loss or weight gain. HEENT: Denies difficulty swallowing or pain on swallowing CARDIOVASCULAR: Denies chest pain, palpitations, or feelings of the heart racing RESPIRATORY: Denies shortness of breath. Denies wheezing. Denies coughing. GASTROINTESTINAL: Admits to nonbloody diarrhea. Admits to abdominal cramping described as diffuse and crampy. Denies bloody stools. Denies nausea or vomiting GENITOURINARY: Denies difficulty with urination. Denies increased frequency or urgency. Denies dysuria SKIN: Denies rashes or lesions MUSCULOSKELETAL: Denies muscle weakness NEUROLOGICAL: Denies changes in speech or gait PSYCHIATRIC: Denies anxiety or depression ENDOCRINE: Denies heat intolerance or cold intolerance HEMATOLOGIC/LYMPHATIC: Admits to history of Pulmonary embolism. Denies easy bruising or bleeding HOME MEDICATIONS: Please see below. PHYSICAL EXAMINATION: VITAL SIGNS: Temperature 97.4, pulse 82, respiratory rate 16, blood pressure 149/106, pulse oximetry 98% on room air. GENERAL APPEARANCE: Patient is awake, alert, and oriented. He is lying in bed comfortably. He does not appear to be in any acute distress HEENT: Atraumatic. Normocephalic. Eyes are nonicteric. Trachea is midline. No palpable cervical, axillary, or supraclavicular lymphadenopathy CARDIOVASCULAR: Normal S1, S2. Regular rate and rhythm. no clicks, rubs, or murmurs LUNGS: Clear vesicular breath sounds bilaterally with good respiratory effort. No wheezes, rhonchi, or rales. Symmetric chest expansion ABDOMEN: Soft, nondistended. Diffuse tenderness. No rebound tenderness or guarding. Small area of bruising on patients right lower quadrant. Normoactive bowel sounds throughout. No hernias or palpable masses EXTREMITIES: No edema. Full and equal pulses in bilateral upper and lower extremities NEUROLOGICAL: No focal neurological deficits PSYCHIATRIC: Mood and affect appear appropriate for situation LABORATORY DATA: See below. MICROBIOLOGY: Please see below. ASSESSMENT: Patient is a 48 year old male with a history of Crohns disease on chronic immunosuppression who was found to have C. difficile colitis and cry ptosporidium during his previous hospitalization and subsequently returned to [facility] with continued diarrhea and dehydration. . PLAN: 1. C. difficile colitis -Patient has tested positive for C. difficile colitis. He has a previous history of C. difficile and s/p fecal transplant in 01/2019. Patient was previously hospitalized and started on oral Vancomycin. Will continue oral vancomycin -IV fluid hydration -Will follow BMP and electrolytes. Replace as needed 2. Cryptosporidium -Patient continues to have non-bloody diarrhea. He has also tested positive for cryptosporidium. He will be continued on Nitazoxanide 3. Dehydration 2/2 diarrhea illness -Patient has dehydration secondary to C. diff and cryptosporidium diarrhea. -Will continue with IVF. Encourage PO intake -Will replace electrolytes as necessary 4. Crohn's Disease on chronic immunosuppression -Patient has a hisory of Crohn's disease for which he receives Humira and Azathioprine. Will continue his Azathioprine inpatient. -Patients symptoms could be secondary to a Crohn's flare although more liekly to be infectious. May consider Mesalamine if Crohn's flare is suspected -Will continue Atovaquone for PCP prophylaxis given history of immunosuppression -Continue Vitamin B12, Multivitamins, -Hyoscyamine sulfate for abdominal pain prn -Continue Prednisone 10mg daily 5. Chronic Hypokalemia and Hypomagnesemia -Given patients history of diarrhea he has chronic hypokalemia and hypomagnesemia. Will continue PO mag and K supplements. Will follow BMP -If acidotic will continue IV hydration with Lactated ringers 6. History of Pulmonary Embolism -Patient has a history of PE. This may be secondary to his history of Crohn's as Crohn's can increase the risk of PE. -Will continue patient on his home Eliquis dose 7. DVT prophylaxis -Patient is chronically anticoagulated with eliquis Vital Signs Vital Signs Date Time Temp Pulse Resp B/P (MAP) Pulse Ox O2 Delivery O2 Flow Rate FiO2 05/12/19 22:40 05/12/19 21:45 97.4 82 16 98 Room Air Laboratory Data Labs 24H Laboratory Tests 2 05/12/19 23:14: Immature Granulocyte % (Auto) 0.7, Neutrophils (%) (Auto) 78.5H, Lymphocytes (%) (Auto) 10.7L, Monocytes (%) (Auto) 9.2H, Eosinophils (%) (Auto) 0.2, Basophils (%) (Auto) 0.7, Neutrophils # (Auto) 9.4H, Lymphocytes # (Auto) 1.3L, Monocytes # (Auto) 1.1H, Eosinophils # (Auto) 0.0, Basophils # (Auto) 0.1, Nucleated Red Blood Cells % (auto) 0.2H 05/12/19 23:24: CBC/BMP Laboratory Tests 05/12/19 23:14 Home Medications Scheduled Adalimumab (Humira(Cf) Pen) 40 Mg/0.4 Ml Pen.ij.kit, 80 MG SQ Q2WK EVERY OTHER FRIDAY Apixaban (Eliquis) 5 Mg Tablet, 5 MG PO BID Atovaquone (Atovaquone) 750 Mg/5 Ml Oral.susp, 1,500 MG PO DAILY Azathioprine (Azathioprine) 50 Mg Tablet, 100 MG PO DAILY Cyanocobalamin (Vitamin B-12) (Vitamin B-12) 1,000 Mcg Tablet, 1,000 MCG PO DAILY Ergocalciferol (Vitamin D2) (Vitamin D2) 50,000 Units Cap, 50,000 UNITS PO QWEEK TUESDAYS Ferrous Gluconate (Ferrous Gluconate) 324 Mg Tablet, 324 MG PO DAILY L.acidoph/L.bulg/B.bif/S.therm (Bacid Caplet) 1 Each Tablet, 1 TAB PO WM Magnesium Chloride (Mag64) 64 Mg Tablet.dr, 128 MG PO DAILY Multivitamin (Multivitamins) 1 Each Tablet, 1 TAB PO DAILY Nitazoxanide (Alinia) 500 Mg Tablet, 500 MG PO BID Prednisone (Prednisone) 10 Mg Tablet, 10 MG PO TAPER 60MG FOR 7 DAYS, 50MG FOR 7 DAYS, 40MG FOR 7 DAYS, 30MG FOR 7 DAYS, 20MG FOR 7 DAYS, 10MG FOR 7 DAYS: PATIENT'S LAST DOSE WAS THE FIRST DOSE OF 30MG. Vancomycin Hcl (Vancomycin HCl) 250 Mg Capsule, 250 MG PO QID Scheduled PRN Acetaminophen (Tylenol Extra Strength) 500 Mg Tablet, 1,000 MG PO Q6H PRN for PAIN Bismuth Subsalicylate (Pepto-Bismol) 262 Mg/15 Ml Oral.susp, 30 ML PO Q6H PRN for UPSET STOMACH Calcium Carbonate (Tums) 200 Mg Tab.chew, 1,500 MG PO QID PRN for INDIGESTION Cholestyramine (with Sugar) (Questran Packet) 4 Gm Powd.pack, 4 GM PO QID PRN for DIARRHEA Diphenhydramine HCl (Diphenhydramine HCl) 50 Mg Capsule, 50 MG PO Q6H PRN for ITCHING Diphenhydramine HCl/Zinc Acet (Benadryl Itch Stopping Crm) 28.3 Gm Cream..g., 1 DOSE TOP TID PRN for RASH/ITCHING Hyoscyamine Sulfate (Hyoscyamine Sulfate ER) 0.375 Mg Tab.er.12h, 0.75 MG PO Q12H PRN for ABDOMINAL PAIN Loperamide HCl (Imodium A-D) 2 Mg Capsule, 2 MG PO Q6H PRN for DIARRHEA Allergies Coded Allergies: epinephrine (Verified Adverse Reaction, Intermediate, HIGH DOSE EPI - SEVERE SVT, 05/12/19) codeine (Verified Adverse Reaction, Mild, hallucinations, 05/12/19) A-FIB/CHADSVASC A-FIB History Current/History of A-Fib/PAF?: No CHAO THOMAS DO May 13, 2019 00:48 ALEXIA BABB MD May 13, 2019 02:23
[2019-05-13] MEDS ORDERED: LR 1,000 ML IV SCH (01:00)
[2019-05-13] MEDS: ACETAMINOPHEN TAB 650MG DOSE (2X325MG) PO PRN ×3 (01:24→14:52)
[2019-05-13] MEDS: VANCOMYCIN ORAL SOL 250MG/5ML ORAL SYRINGE PO SCH ×4 (01:49→17:32)
[2019-05-13 02:00] VITALS: BP 173/113
[2019-05-13 02:01] VITALS: BP 140/100
[2019-05-13 02:10] LABS: ALBUMIN 4.1 GM/DL (3.2-5.2); ALT/SGPT 28 U/L (12-78); BILIRUBIN,DIRECT 0.2 MG/DL (0.0-0.2); BILIRUBIN,TOTAL 0.6 MG/DL (0.2-1.0); BLOOD UREA NITROGEN 16 MG/DL (7-18); CARBON DIOXIDE LEVEL 19 MEQ/L (21-32); CHLORIDE LEVEL 110 MEQ/L (98-107); CREATININE FOR GFR 1.18 MG/DL (0.70-1.30); GLOMERULAR FILTRATION RATE > 60.0 (>56); GLUCOSE, FASTING 92 MG/DL (70-100); LIPASE 30 U/L (73-393); PHOSPHORUS LEVEL 5.5 MG/DL (2.5-4.9); POTASSIUM SERUM 4.5 MEQ/L (3.5-5.1); SODIUM LEVEL 139 MEQ/L (136-145); TOTAL PROTEIN 8.6 GM/DL (6.4-8.2)
[2019-05-13] MEDS: CALCIUM CARBONATE 500 MG CHEW U/D PO PRN ×2 (02:24→20:58)
[2019-05-13 05:15] LABS: HEMATOCRIT 44.6 % (42.0-52.0); HEMOGLOBIN 13.8 g/dl (13.5-17.5); MEAN CORPUSCULAR HEMOGLOBIN 29.9 pg (27.0-33.0); MEAN CORPUSCULAR HGB CONC 30.9 g/dl (32.0-36.5); MEAN CORPUSCULAR VOLUME 96.7 fl (80.0-96.0); PLATELET COUNT, AUTOMATED 278 10^3/uL (150-450); RED BLOOD COUNT 4.61 10^6/uL (4.30-6.10)
[2019-05-13 05:35] LABS: BLOOD UREA NITROGEN 17 MG/DL (7-18); CALCIUM LEVEL 8.5 MG/DL (8.5-10.1); CARBON DIOXIDE LEVEL 16 MEQ/L (21-32); CHLORIDE LEVEL 110 MEQ/L (98-107); CREATININE FOR GFR 1.03 MG/DL (0.70-1.30); GLOMERULAR FILTRATION RATE > 60.0 (>56); GLUCOSE, FASTING 95 MG/DL (70-100); POTASSIUM SERUM 3.6 MEQ/L (3.5-5.1); SODIUM LEVEL 135 MEQ/L (136-145)
[2019-05-13 05:53] VITALS: BP 131/92
[2019-05-13] MEDS: MAGNESIUM CHLORIDE 64 MG TABCR (SLO MAG) PO SCH (08:03)
[2019-05-13] MEDS: LACTOBACILLUS ACIDOPHILUS CAP (BACID) PO SCH ×3 (08:04→17:32)
[2019-05-13] MEDS: APIXABAN 5 MG TAB (ELIQUIS) PO SCH ×2 (08:04→20:11)
[2019-05-13] MEDS: MULTIVITAMINS/MINERALS THERAP 1 TAB PO SCH (08:04)
[2019-05-13] MEDS: azaTHIOprine 50 MG TAB (J7500) PO SCH (08:04)
[2019-05-13] MEDS: ATOVAQUONE SUSP 750MG/5ML 210 ML BTL PO SCH (08:04)
[2019-05-13] MEDS: FERROUS GLUCONATE 324 MG TAB PO SCH (08:04)
[2019-05-13] MEDS: CYANOCOBALAMIN 500 MCG TAB PO SCH (08:39)
[2019-05-13] MEDS: NITAZOXANIDE 500 MG TAB (ALINIA) PO SCH ×2 (08:39→20:11)
[2019-05-13] MEDS: predniSONE 10 MG TAB PO SCH (08:39)
[2019-05-13] MEDS ORDERED: predniSONE 10 MG TAB PO SCH (09:00)
[2019-05-13] MEDS: MORPHINE 2 MG/ML 1ML VIAL (J2270) IV PRN ×2 (10:36→21:58)
--- NOTE | 2019-05-13 11:43 | IPNPDOC ---
Text Note Date of Service The patient was seen on 05/13/19. NOTE Subjective: Patient is a 48 year old male with a PMhx Hx of C. diff (with multiple hospitalizations; s/p stool transplatn 01/2019), Chronic PE (on Eliquis), Asthma, Staph aureus pneumonia with cavitary lesion (Follows with Dr. Auguste), Crohn's disease (on Prednisone, Budesonide and Entyvio), Psoriatic arthritis who was initially admitted to [facility] on 05/10 and discharged on 05/11 for C. diff and Cryptosporidium diarrhea. Patient has been on treatment with Vancomycin and Nitazoxanide, but was unable to stay hydrated and felt weak, prompting him to return to the ER. Patient has presented again with persistent diarrhea and has been admitted to hospitalist service for further evaluation and treatment. Patient was seen and examined at the bedside. Patient reports that he still experiencing several episodes of diarrhea. He denies any lightheadedness, dizziness, chest pain, shortness of breath or palpitations. Reported some abdominal discomfort but has not experienced any nausea or vomiting. Objective: Vitals (See below) General: Lying in bed, no acute distress, comfortable, AAOx3 HEENT: NC, AT CVS: +S1S2 Lungs: Fair air entry b/l, no evidence of wheezing, rhonchi or rales Abdomen: Soft, palpation does not reveal any tenderness, no distention noted Extremities: - Edema, - Calf tenderness Assessment and plan: Persistent intractable diarrhea - likely 2/2 multifactorial etiology (C. diff and Cryptosporidium), less likely 2/2 Chron's flare - Patient reports that he has persistent diarrhea and has felt weak / tired since discharge - Physical without any significant findings - Patient remains hemodynamically stable and afebrile - Stool 05/10: Cryptosporidium, C. Diff A/B; Stool 05/13: Negative - possibly 2/2 treatment - c/w Vancomycin and Nitazoxanide (Day #6) - Will consult ID tomorrow if diarrhea fails to resolve Dehydration - likely 2/2 above - c/w IV fluid hydration until diarrhea subsides Chronic Hypokalemia and Hypomagnesemia - c/w IV fluid hydration and supplementation Crohn's disease - c/w Humira as an outpatient; next dose scheduled for Friday05/17/19 - c/w Azathioprine - c/w Atovaquone for PCP prophylaxis (re: immunosuppression) - c/w Vitamin supplementation - c/w Prednisone; will adjust dose to 30mg and taper Chronic PE - c/w Eliquis - Patient follows with Dr. Auguste as an outpatient Asthma - No evidence of exacerbation - c/w inhaled therapy is ordered Staph aureus pneumonia with cavitary lesion - Follows with Dr. Auguste Psoriatic arthritis DVT prophylaxis - c/w full anticoagulation with Eliquis Deposition: - Will consult ID tomorrow if diarrhea fails to resolve VS,Fishbone, I+O VS, Fishbone, I+O Laboratory Tests 05/12/19 23:14 05/13/19 01:13 05/13/19 05:01 Vital Signs Date Time Temp Pulse Resp B/P (MAP) Pulse Ox O2 Delivery O2 Flow Rate FiO2 05/13/19 10:50 18 05/13/19 05:53 97.6 81 131/92 (105) 94 Room Air I&O- Last 24 Hours up to 6 AM 05/13/19 06:00 Intake Total 1300 ml Output Total 0 ml Balance 1300 ml EZEKIEL MARTINEZ MD May 13, 2019 11:43
[2019-05-13 14:00] VITALS: BP 138/92
[2019-05-13] MEDS: POTASSIUM CHLORIDE INJ 40 MEQ in LR 1,000 ML IV SCH (14:46)
[2019-05-13 20:24] VITALS: BP 158/80
[2019-05-13] MEDS: CHOLESTYRAMINE 4 GM PWD PKT PO SCH (22:15)
[2019-05-14] MEDS: VANCOMYCIN ORAL SOL 250MG/5ML ORAL SYRINGE PO SCH ×5 (00:45→21:52)
[2019-05-14] MEDS: POTASSIUM CHLORIDE INJ 40 MEQ in LR 1,000 ML IV SCH (00:46)
[2019-05-14 06:31] LABS: HEMATOCRIT 47.9 % (42.0-52.0); HEMOGLOBIN 14.8 g/dl (13.5-17.5); MEAN CORPUSCULAR HEMOGLOBIN 30.3 pg (27.0-33.0); MEAN CORPUSCULAR HGB CONC 30.9 g/dl (32.0-36.5); PLATELET COUNT, AUTOMATED 265 10^3/uL (150-450); RED BLOOD COUNT 4.89 10^6/uL (4.30-6.10)
[2019-05-14 06:54] VITALS: BP 138/80
[2019-05-14 06:57] LABS: BLOOD UREA NITROGEN 18 MG/DL (7-18); CALCIUM LEVEL 8.8 MG/DL (8.5-10.1); CARBON DIOXIDE LEVEL 12 MEQ/L (21-32); CHLORIDE LEVEL 114 MEQ/L (98-107); CREATININE FOR GFR 0.96 MG/DL (0.70-1.30); GLOMERULAR FILTRATION RATE > 60.0 (>56); GLUCOSE, FASTING 80 MG/DL (70-100); POTASSIUM SERUM 4.1 MEQ/L (3.5-5.1); SODIUM LEVEL 138 MEQ/L (136-145)
[2019-05-14] MEDS: ATOVAQUONE SUSP 750MG/5ML 210 ML BTL PO SCH (08:36)
[2019-05-14] MEDS: CHOLESTYRAMINE 4 GM PWD PKT PO SCH ×4 (08:36→20:40)
[2019-05-14] MEDS: MULTIVITAMINS/MINERALS THERAP 1 TAB PO SCH (08:36)
[2019-05-14] MEDS: MAGNESIUM CHLORIDE 64 MG TABCR (SLO MAG) PO SCH (08:36)
[2019-05-14] MEDS: NITAZOXANIDE 500 MG TAB (ALINIA) PO SCH ×2 (08:36→20:40)
[2019-05-14] MEDS: azaTHIOprine 50 MG TAB (J7500) PO SCH (08:37)
[2019-05-14] MEDS: predniSONE 10 MG TAB PO SCH (08:37)
[2019-05-14] MEDS: LACTOBACILLUS ACIDOPHILUS CAP (BACID) PO SCH ×2 (08:37→12:33)
[2019-05-14] MEDS: FERROUS GLUCONATE 324 MG TAB PO SCH (08:38)
[2019-05-14] MEDS: APIXABAN 5 MG TAB (ELIQUIS) PO SCH ×2 (08:38→20:40)
[2019-05-14] MEDS: NS 1,000 ML IV SCH ×2 (09:24→17:16)
[2019-05-14] MEDS: CYANOCOBALAMIN 500 MCG TAB PO SCH (09:24)
[2019-05-14] MEDS: ACETAMINOPHEN TAB 650MG DOSE (2X325MG) PO PRN ×2 (09:24→20:42)
[2019-05-14] MEDS ORDERED: ONDANSETRON 4MG/2ML VIAL (J2405) IV PRN (10:45)
[2019-05-14] MEDS: MORPHINE 2 MG/ML 1ML VIAL (J2270) IV PRN (10:47)
--- NOTE | 2019-05-14 15:28 | IPNPDOC ---
Text Note Date of Service The patient was seen on 05/14/19. NOTE Subjective: Patient continues to have frequent bowel movement, 10 times over night. Patient denies fever, chills, vomiting, shortness of breath, chest pain, dysuria Objective: General: NAD HEENT: NC, AT, PERRLA CVS: S1-S2 Lungs: Clear to auscultation bilaterally Abdomen: Nontender, moderately distended, bowel sounds present Extremities: No edema no cyanosis Neuro: Nonfocal, no nuchal rigidity Assessment and plan Patient is 48 years old male with past medical history of Staphylococcus aureus pneumonia, C. difficile colitis, psoriasis, Crohn diseases presented hospital with multiple episodes of diarrhea. Patient was found to have positive stool for cryptosporidium and C. diff on 05/10/19 Diarrhea Secondary to C. difficile colitis superimposed with cryptosporidium infection Patient continues to have multiple episodes of diarrhea c/w Vancomycin and Nitazoxanide (Day #7) Appreciate/agree with ID consult Dehydration Continue IV fluid Crohn's disease Patient is on immunosuppressive therapy: Humira, Prednisone 30 mg and Azathioprine Atovaquone for PCP prophylaxis c/w Vitamin supplementation PE c/w Eliquis Psoriasis Not in acute exacerbation Electrolyte imbalance Secondary to diarrhea Replace as needed VS,Fishbone, I+O VS, Fishbone, I+O Laboratory Tests 05/14/19 05:53 Vital Signs Date Time Temp Pulse Resp B/P (MAP) Pulse Ox O2 Delivery O2 Flow Rate FiO2 05/14/19 11:07 18 05/14/19 06:54 97.8 73 138/80 (99) 97 Room Air I&O- Last 24 Hours up to 6 AM 05/14/19 06:00 Intake Total 3410 ml Output Total 100 ml Balance 3310 ml LAUREN GRANT DO May 14, 2019 15:28
[2019-05-14] MEDS ORDERED: NS 1,000 ML IV ONE (16:15)
[2019-05-14 17:28] LABS: BLOOD UREA NITROGEN 19 MG/DL (7-18); CALCIUM LEVEL 8.7 MG/DL (8.5-10.1); CARBON DIOXIDE LEVEL 15 MEQ/L (21-32); CHLORIDE LEVEL 115 MEQ/L (98-107); CREATININE FOR GFR 1.04 MG/DL (0.70-1.30); GLOMERULAR FILTRATION RATE > 60.0 (>56); GLUCOSE, FASTING 117 MG/DL (70-100); POTASSIUM SERUM 4.9 MEQ/L (3.5-5.1); SODIUM LEVEL 137 MEQ/L (136-145)
[2019-05-14] MEDS: CALCIUM CARBONATE 500 MG CHEW U/D PO PRN (20:40)
[2019-05-14 22:00] VITALS: BP 144/84
[2019-05-14 23:28] LABS: BLOOD UREA NITROGEN 19 MG/DL (7-18); CALCIUM LEVEL 8.7 MG/DL (8.5-10.1); CARBON DIOXIDE LEVEL 11 MEQ/L (21-32); CHLORIDE LEVEL 116 MEQ/L (98-107); CREATININE FOR GFR 1.11 MG/DL (0.70-1.30); GLOMERULAR FILTRATION RATE > 60.0 (>56); GLUCOSE, FASTING 110 MG/DL (70-100); POTASSIUM SERUM 4.9 MEQ/L (3.5-5.1); SODIUM LEVEL 138 MEQ/L (136-145)
[2019-05-15] MEDS: NS 1,000 ML IV SCH ×4 (00:25→20:34)
[2019-05-15] MEDS: CALCIUM CARBONATE 500 MG CHEW U/D PO PRN ×3 (00:25→23:01)
[2019-05-15] MEDS: VANCOMYCIN ORAL SOL 250MG/5ML ORAL SYRINGE PO SCH ×6 (02:00→21:17)
[2019-05-15 05:38] LABS: HEMATOCRIT 40.7 % (42.0-52.0); HEMOGLOBIN 13.1 g/dl (13.5-17.5); MEAN CORPUSCULAR HEMOGLOBIN 30.8 pg (27.0-33.0); MEAN CORPUSCULAR HGB CONC 32.2 g/dl (32.0-36.5); MEAN CORPUSCULAR VOLUME 95.8 fl (80.0-96.0); PLATELET COUNT, AUTOMATED 278 10^3/uL (150-450); RED BLOOD COUNT 4.25 10^6/uL (4.30-6.10); WHITE BLOOD COUNT 9.7 10^3/uL (4.0-10.0)
[2019-05-15 06:00] VITALS: BP 136/80
[2019-05-15 06:07] LABS: BLOOD UREA NITROGEN 19 MG/DL (7-18); CALCIUM LEVEL 8.2 MG/DL (8.5-10.1); CARBON DIOXIDE LEVEL 13 MEQ/L (21-32); CHLORIDE LEVEL 117 MEQ/L (98-107); CREATININE FOR GFR 0.87 MG/DL (0.70-1.30); GLOMERULAR FILTRATION RATE > 60.0 (>56); GLUCOSE, FASTING 85 MG/DL (70-100); POTASSIUM SERUM 3.7 MEQ/L (3.5-5.1); SODIUM LEVEL 139 MEQ/L (136-145)
[2019-05-15] MEDS ORDERED: KCL 20MEQ IN 100ML SWI (KRUN) 20 MEQ in IV 1 EA IV SCH ×2 (09:00)
[2019-05-15] MEDS: FERROUS GLUCONATE 324 MG TAB PO SCH (09:28)
[2019-05-15] MEDS: NITAZOXANIDE 500 MG TAB (ALINIA) PO SCH ×2 (09:28→21:25)
[2019-05-15] MEDS: MULTIVITAMINS/MINERALS THERAP 1 TAB PO SCH (09:29)
[2019-05-15] MEDS: CYANOCOBALAMIN 500 MCG TAB PO SCH (09:29)
[2019-05-15] MEDS: MAGNESIUM CHLORIDE 64 MG TABCR (SLO MAG) PO SCH (09:29)
[2019-05-15] MEDS: CHOLESTYRAMINE 4 GM PWD PKT PO SCH ×4 (09:29→21:17)
[2019-05-15] MEDS: APIXABAN 5 MG TAB (ELIQUIS) PO SCH ×2 (09:29→21:18)
[2019-05-15] MEDS: ATOVAQUONE SUSP 750MG/5ML 210 ML BTL PO SCH (09:29)
[2019-05-15] MEDS: KCL 10MEQ/100ML SWI (KRUN) X 2 DOSES (20MEQ TOTAL) IV SCH ×6 (09:30→11:00)
[2019-05-15 12:37] LABS: BLOOD UREA NITROGEN 18 MG/DL (7-18); CALCIUM LEVEL 8.5 MG/DL (8.5-10.1); CARBON DIOXIDE LEVEL 14 MEQ/L (21-32); CHLORIDE LEVEL 117 MEQ/L (98-107); CREATININE FOR GFR 1.04 MG/DL (0.70-1.30); GLOMERULAR FILTRATION RATE > 60.0 (>56); GLUCOSE, FASTING 91 MG/DL (70-100); POTASSIUM SERUM 3.9 MEQ/L (3.5-5.1); SODIUM LEVEL 140 MEQ/L (136-145)
[2019-05-15] MEDS: predniSONE 10 MG TAB PO SCH (12:39)
[2019-05-15] MEDS: ACETAMINOPHEN TAB 650MG DOSE (2X325MG) PO PRN (12:43)
[2019-05-15] MEDS: MORPHINE 2 MG/ML 1ML VIAL (J2270) IV PRN (13:38)
[2019-05-15] MEDS: HYOSCYAMINE SULFATE 0.125 MG SUBL TABLET SL PRN ×2 (13:38→23:27)
--- NOTE | 2019-05-15 13:58 | IPNPDOC ---
Text Note Date of Service The patient was seen on 05/15/19. NOTE Subjective: Patient has been having improvement in frequency of bowel movements. For past 24 hours 5 bowel movements. Patient denies fever, chills, vomiting, shortness of breath, chest pain, dysuria Objective: General: NAD HEENT: NC, AT, PERRLA CVS: S1-S2 Lungs: Clear to auscultation bilaterally Abdomen: Nontender, moderately distended, bowel sounds present Extremities: No edema no cyanosis Neuro: Nonfocal, no nuchal rigidity Assessment and plan Patient is 48 years old male with past medical history of Staphylococcus aureus pneumonia, C. difficile colitis, psoriasis, Crohn diseases presented hospital with multiple episodes of diarrhea. Patient was found to have positive stool for cryptosporidium and C. diff on 05/10/19 Diarrhea Improved today. 5 bowel movements for past 24 hours Secondary to C. difficile colitis superimposed with cryptosporidium infection c/w Vancomycin and Nitazoxanide (Day #7) Appreciate/agree with ID consult Dehydration Continue IV fluid Crohn's disease Patient was on immunosuppressive therapy: Humira, Azathioprine. I stopped immu nosuppressive therapy due to acute infection Atovaquone for PCP prophylaxis Continue prednisone 30 mg in order to prevent Crohn exacerbation c/w Vitamin supplementation PE c/w Eliquis Psoriasis Not in acute exacerbation Electrolyte imbalance Secondary to diarrhea Replace as needed VS,Daiana, I+O VS, Daiana, I+O Laboratory Tests 05/14/19 16:43 05/14/19 22:47 05/15/19 05:26 05/15/19 11:47 Vital Signs Date Time Temp Pulse Resp B/P (MAP) Pulse Ox O2 Delivery O2 Flow Rate FiO2 05/15/19 13:38 18 Room Air 05/15/19 06:00 97.5 86 136/80 (98) 99 I&O- Last 24 Hours up to 6 AM 05/15/19 06:00 Intake Total 8575 ml Output Total 600 ml Balance 7975 ml LAUREN GRANT DO May 15, 2019 13:58
[2019-05-15 14:00] VITALS: BP 132/88
[2019-05-15] MEDS ORDERED: POTASSIUM CHLORIDE 10 MEQ SR TABLET PO ONE (14:00)
[2019-05-15 17:37] LABS: BLOOD UREA NITROGEN 16 MG/DL (7-18); CALCIUM LEVEL 8.2 MG/DL (8.5-10.1); CARBON DIOXIDE LEVEL 7 MEQ/L (21-32); CHLORIDE LEVEL 120 MEQ/L (98-107); CREATININE FOR GFR 0.97 MG/DL (0.70-1.30); GLOMERULAR FILTRATION RATE > 60.0 (>56); GLUCOSE, FASTING 85 MG/DL (70-100); POTASSIUM SERUM 4.8 MEQ/L (3.5-5.1); SODIUM LEVEL 136 MEQ/L (136-145)
[2019-05-15 22:00] VITALS: BP 146/84
[2019-05-15 23:13] LABS: BLOOD UREA NITROGEN 16 MG/DL (7-18); CALCIUM LEVEL 8.4 MG/DL (8.5-10.1); CARBON DIOXIDE LEVEL 10 MEQ/L (21-32); CHLORIDE LEVEL 120 MEQ/L (98-107); CREATININE FOR GFR 1.04 MG/DL (0.70-1.30); GLOMERULAR FILTRATION RATE > 60.0 (>56); GLUCOSE, FASTING 111 MG/DL (70-100); POTASSIUM SERUM 4.1 MEQ/L (3.5-5.1); SODIUM LEVEL 140 MEQ/L (136-145)
[2019-05-16] MEDS: VANCOMYCIN ORAL SOL 250MG/5ML ORAL SYRINGE PO SCH ×6 (01:54→20:36)
[2019-05-16 06:00] VITALS: BP 142/88
[2019-05-16] MEDS: ACETAMINOPHEN TAB 650MG DOSE (2X325MG) PO PRN (06:45)
[2019-05-16 07:09] LABS: HEMATOCRIT 46.2 % (42.0-52.0); HEMOGLOBIN 13.6 g/dl (13.5-17.5); MEAN CORPUSCULAR HEMOGLOBIN 30.4 pg (27.0-33.0); MEAN CORPUSCULAR HGB CONC 29.4 g/dl (32.0-36.5); MEAN CORPUSCULAR VOLUME 103.1 fl (80.0-96.0); PLATELET COUNT, AUTOMATED 262 10^3/uL (150-450); RED BLOOD COUNT 4.48 10^6/uL (4.30-6.10); WHITE BLOOD COUNT 10.9 10^3/uL (4.0-10.0)
[2019-05-16 07:51] LABS: BLOOD UREA NITROGEN 13 MG/DL (7-18); CALCIUM LEVEL 7.8 MG/DL (8.5-10.1); CARBON DIOXIDE LEVEL 10 MEQ/L (21-32); CHLORIDE LEVEL 122 MEQ/L (98-107); CREATININE FOR GFR 0.73 MG/DL (0.70-1.30); GLOMERULAR FILTRATION RATE > 60.0 (>56); GLUCOSE, FASTING 83 MG/DL (70-100); POTASSIUM SERUM 3.9 MEQ/L (3.5-5.1); SODIUM LEVEL 141 MEQ/L (136-145)
[2019-05-16] MEDS: NS 1,000 ML IV SCH ×4 (09:16→22:36)
[2019-05-16] MEDS: ATOVAQUONE SUSP 750MG/5ML 210 ML BTL PO SCH (09:50)
[2019-05-16] MEDS: NITAZOXANIDE 500 MG TAB (ALINIA) PO SCH ×2 (09:51→20:37)
[2019-05-16] MEDS: CHOLESTYRAMINE 4 GM PWD PKT PO SCH ×4 (09:51→20:37)
[2019-05-16] MEDS: CYANOCOBALAMIN 500 MCG TAB PO SCH (09:51)
[2019-05-16] MEDS: MULTIVITAMINS/MINERALS THERAP 1 TAB PO SCH (09:51)
[2019-05-16] MEDS: MAGNESIUM CHLORIDE 64 MG TABCR (SLO MAG) PO SCH (09:51)
[2019-05-16] MEDS: predniSONE 10 MG TAB PO SCH (09:51)
[2019-05-16] MEDS: FERROUS GLUCONATE 324 MG TAB PO SCH (09:51)
[2019-05-16] MEDS: APIXABAN 5 MG TAB (ELIQUIS) PO SCH ×2 (09:51→20:37)
--- NOTE | 2019-05-16 11:37 | IPNPDOC ---
Text Note Date of Service The patient was seen on 05/16/19. NOTE Subjective: Patient has been having improvement in frequency of bowel movements. For past 12 hours 3 bowel movements. Patient complains of intermittent bilateral flank pain. Patient denies fever, chills, vomiting, shortness of breath, chest pain, dysuria Objective: General: NAD HEENT: NC, AT, PERRLA CVS: S1-S2 Lungs: Clear to auscultation bilaterally Abdomen: Nontender, moderately distended, bowel sounds present Extremities: No edema no cyanosis Neuro: Nonfocal, no nuchal rigidity Assessment and plan Patient is 48 years old male with past medical history of Staphylococcus aureus pneumonia, C. difficile colitis, psoriasis, Crohn diseases presented hospital with multiple episodes of diarrhea. Patient was found to have positive stool for cryptosporidium and C. diff on 05/10/19 Diarrhea Improved today.3 bowel movements for past 12 hours Secondary to C. difficile colitis superimposed with cryptosporidium infection c/w Vancomycin and Nitazoxanide (Day #8) Appreciate/agree with ID consult, No ID coverage until May 22 Dehydration Continue IV fluid Crohn's disease Patient was on immunosuppressive therapy: Humira, Azathioprine. I stopped immunosuppressive therapy due to acute infection Atovaquone for PCP prophylaxis Continue prednisone 30 mg in order to prevent Crohn exacerbation c/w Vitamin supplementation PE c/w Eliquis Psoriasis Not in acute exacerbation Electrolyte imbalance Secondary to diarrhea Replace as needed Bilateral flank pain Most likely musculoskeletal Will check renal ultrasound and urine VS,Daiana, I+O VS, Edihte, I+O Laboratory Tests 05/15/19 11:47 05/15/19 17:02 05/15/19 22:23 05/16/19 06:44 05/16/19 07:15 Vital Signs Date Time Temp Pulse Resp B/P (MAP) Pulse Ox O2 Delivery O2 Flow Rate FiO2 05/16/19 06:00 97.4 70 18 142/88 (106) 100 Room Air I&O- Last 24 Hours up to 6 AM 05/16/19 06:00 Intake Total 3850 ml Output Total 700 ml Balance 3150 ml LAUREN GRANT DO May 16, 2019 11:37
[2019-05-16 12:16] LABS: BLOOD UREA NITROGEN 13 MG/DL (7-18); CALCIUM LEVEL 7.8 MG/DL (8.5-10.1); CARBON DIOXIDE LEVEL 4 MEQ/L (21-32); CHLORIDE LEVEL 126 MEQ/L (98-107); CREATININE FOR GFR 0.95 MG/DL (0.70-1.30); GLOMERULAR FILTRATION RATE > 60.0 (>56); GLUCOSE, FASTING 98 MG/DL (70-100); POTASSIUM SERUM 4.5 MEQ/L (3.5-5.1); SODIUM LEVEL 138 MEQ/L (136-145)
[2019-05-16] MEDS: CALCIUM CARBONATE 500 MG CHEW U/D PO PRN ×2 (12:29→22:36)
[2019-05-16] MEDS: HYOSCYAMINE SULFATE 0.125 MG SUBL TABLET SL PRN ×2 (13:48→21:06)
[2019-05-16 14:00] VITALS: BP 140/85
[2019-05-16] MEDS: MORPHINE 2 MG/ML 1ML VIAL (J2270) IV PRN (14:47)
--- NOTE | 2019-05-16 14:57 | REP ---
Clinical: Renal colic. Technique: Real time sheth scale ultrasound examination using curved array transducer. Findings: Bilateral kidneys are normal in contour, size, echogenicity, and reniform shape without hydronephrosis, nephrolithiasis, cystic or renal mass lesion. No perinephric fluid collection. Right kidney measures 11.1 x 5.1 x 5.7 cm. Left kidney measures at 11.3 x 5.2 x 6.0 cm. Bladder is collapsed. Impression: Normal renal ultrasound. Electronically Signed by Ramon Noyola MD 05/16/2019 02:47 P
[2019-05-16 22:00] VITALS: BP 140/88
[2019-05-17] MEDS: VANCOMYCIN ORAL SOL 250MG/5ML ORAL SYRINGE PO SCH ×6 (02:18→21:50)
[2019-05-17] MEDS: NS 1,000 ML IV SCH ×3 (03:13→18:06)
[2019-05-17] MEDS: ACETAMINOPHEN TAB 650MG DOSE (2X325MG) PO PRN ×2 (03:13→20:39)
[2019-05-17] MEDS: HYOSCYAMINE SULFATE 0.125 MG SUBL TABLET SL PRN ×3 (05:45→21:50)
[2019-05-17 06:00] VITALS: BP 130/82
[2019-05-17 06:29] LABS: HEMATOCRIT 43.3 % (42.0-52.0); HEMOGLOBIN 13.1 g/dl (13.5-17.5); MEAN CORPUSCULAR HEMOGLOBIN 30.1 pg (27.0-33.0); MEAN CORPUSCULAR HGB CONC 30.3 g/dl (32.0-36.5); MEAN CORPUSCULAR VOLUME 99.5 fl (80.0-96.0); PLATELET COUNT, AUTOMATED 305 10^3/uL (150-450); RED BLOOD COUNT 4.35 10^6/uL (4.30-6.10); WHITE BLOOD COUNT 11.4 10^3/uL (4.0-10.0)
[2019-05-17 06:46] LABS: BLOOD UREA NITROGEN 10 MG/DL (7-18); CALCIUM LEVEL 7.6 MG/DL (8.5-10.1); CARBON DIOXIDE LEVEL 7 MEQ/L (21-32); CHLORIDE LEVEL 122 MEQ/L (98-107); CREATININE FOR GFR 0.79 MG/DL (0.70-1.30); GLOMERULAR FILTRATION RATE > 60.0 (>56); GLUCOSE, FASTING 74 MG/DL (70-100); POTASSIUM SERUM 3.4 MEQ/L (3.5-5.1); SODIUM LEVEL 141 MEQ/L (136-145)
[2019-05-17] MEDS ORDERED: POTASSIUM CHLORIDE 10 MEQ SR TABLET PO ONE (09:00)
[2019-05-17] MEDS: ATOVAQUONE SUSP 750MG/5ML 210 ML BTL PO SCH (09:26)
[2019-05-17] MEDS: NITAZOXANIDE 500 MG TAB (ALINIA) PO SCH ×2 (09:26→20:39)
[2019-05-17] MEDS: CHOLESTYRAMINE 4 GM PWD PKT PO SCH ×4 (09:26→20:39)
[2019-05-17] MEDS: CYANOCOBALAMIN 500 MCG TAB PO SCH (09:26)
[2019-05-17] MEDS: MULTIVITAMINS/MINERALS THERAP 1 TAB PO SCH (09:29)
[2019-05-17] MEDS: FERROUS GLUCONATE 324 MG TAB PO SCH (09:29)
[2019-05-17] MEDS: predniSONE 10 MG TAB PO SCH (09:30)
[2019-05-17] MEDS: APIXABAN 5 MG TAB (ELIQUIS) PO SCH ×2 (09:30→20:39)
[2019-05-17] MEDS: MAGNESIUM CHLORIDE 64 MG TABCR (SLO MAG) PO SCH (09:30)
[2019-05-17] MEDS: CALCIUM CARBONATE 500 MG CHEW U/D PO PRN ×2 (12:00→18:06)
--- NOTE | 2019-05-17 12:10 | IPNPDOC ---
Text Note Date of Service The patient was seen on 05/17/19. NOTE Subjective: Patient has been having frequent bowel movements up to 12 for past 24 hours. I discussed with patient a transfer to [place], because there is no coverage from ID and GI for today and tomorrow. Patient told me that he needs to discuss it with his . Patient denies fever, chills, vomiting, shortness of breath, chest pain, dysuria Objective: General: NAD HEENT: NC, AT, PERRLA CVS: S1-S2 Lungs: Clear to auscultation bilaterally Abdomen: Nontender, moderately distended, bowel sounds present Extremities: No edema no cyanosis Neuro: Nonfocal, no nuchal rigidity Assessment and plan Patient is 48 years old male with past medical history of Staphylococcus aureus pneumonia, C. difficile colitis, psoriasis, Crohn diseases presented hospital with multiple episodes of diarrhea. Patient was found to have positive stool for cryptosporidium and C. diff on 05/10/19 Diarrhea Continues to have frequency up to 12 bowel movements for past 24 hours Secondary to C. difficile colitis superimposed with cryptosporidium infection c/w Vancomycin and Nitazoxanide (Day #9) Appreciate/agree with ID consult, No ID coverage until May 22 No GI coverage today Continue IV fluid IV hydration Crohn's disease Patient was on immunosuppressive therapy: Humira, Azathioprine. I stopped immunosuppressive therapy due to acute infection Atovaquone for PCP prophylaxis Continue prednisone 30 mg in order to prevent Crohn exacerbation c/w Vitamin supplementation PE c/w Eliquis Psoriasis Not in acute exacerbation Electrolyte imbalance Secondary to diarrhea Replace as needed Bilateral flank pain Most likely musculoskeletal Renal ultrasound unremarkable Urine analysis does not show pyuria VS,Edithe, I+O VS, Fishsarahe, I+O Laboratory Tests 05/17/19 06:13 Vital Signs Date Time Temp Pulse Resp B/P (MAP) Pulse Ox O2 Delivery O2 Flow Rate FiO2 05/17/19 06:00 96.9 71 18 130/82 (98) 99 Room Air I&O- Last 24 Hours up to 6 AM 05/17/19 06:00 Intake Total 960 ml Output Total 500 ml Balance 460 ml LAUREN GRANT DO May 17, 2019 12:10
[2019-05-17] MEDS ORDERED: LIDOCAINE 1% MDV 20ML VIAL As Ordered ONE (17:02)
--- NOTE | 2019-05-17 18:29 | REP ---
PICC line insertion under ultrasound guidance. The procedure was performed by ANASTASIA De Santiago, under the direct supervision of Dr. Rao. The risks and benefits of the procedure were explained to the patient and informed consent was obtained both verbally and written. Directly prior to the start of the procedure, a formal timeout was completed in the procedure room. The right medial brachial vein was localized using ultrasound guidance. The skin was prepped and draped in the sterile fashion. 1 ml 1% lidocaine 10 mg/ml was used as a local anesthetic. Using ultrasound guidance the right medial brachial vein was cannulated and a 0.018 guidewire was inserted and advanced to the SVC using fluoroscopic guidance. The needle was removed and a 4.5 Liberian dilator and peel-away sheath was inserted over the guidewire. A 4.5 Liberian single lumen catheter was cut to the length of 39 cm. The dilator was removed and the catheter was inserted over the guide wire with the tip ending in the SVC. The peel-away sheath was removed and the catheter was flushed with heparinized saline as per hospital protocol. The catheter was affixed to the skin and a sterile dressing was applied. The patient tolerated the procedure well and there were no immediate complications. 0.2 minutes of fluoroscopy time was utilized for this procedure. Some fluoroscopic images are performed with last image hold technology. These images require no additional radiation. Reviewed by ANASTASIA Poole 05/17/2019 05:56 P Electronically Signed by Chuck Rao MD 05/17/2019 06:19 P
[2019-05-17] MEDS ORDERED: SODIUM CHLORIDE 0.9% INJ 10 ML SYR IV PRN (19:00)
[2019-05-17 22:52] VITALS: BP 175/108
[2019-05-17 22:53] VITALS: BP 168/110
[2019-05-18 01:36] VITALS: BP 138/72
[2019-05-18] MEDS: VANCOMYCIN ORAL SOL 250MG/5ML ORAL SYRINGE PO SCH ×6 (01:48→22:17)
[2019-05-18] MEDS: NS 1,000 ML IV SCH ×4 (01:49→21:08)
[2019-05-18] MEDS: MORPHINE 2 MG/ML 1ML VIAL (J2270) IV PRN (01:49)
[2019-05-18] MEDS: SODIUM CHLORIDE 0.9% INJ 10 ML SYR IV SCH ×2 (06:00→17:05)
[2019-05-18 06:13] LABS: HEMOGLOBIN 12.5 g/dl (13.5-17.5); MEAN CORPUSCULAR HEMOGLOBIN 31.3 pg (27.0-33.0); MEAN CORPUSCULAR HGB CONC 32.9 g/dl (32.0-36.5); MEAN CORPUSCULAR VOLUME 95.2 fl (80.0-96.0); PLATELET COUNT, AUTOMATED 280 10^3/uL (150-450); RED BLOOD COUNT 3.99 10^6/uL (4.30-6.10); WHITE BLOOD COUNT 10.4 10^3/uL (4.0-10.0)
[2019-05-18 06:35] LABS: BLOOD UREA NITROGEN 7 MG/DL (7-18); CALCIUM LEVEL 7.2 MG/DL (8.5-10.1); CARBON DIOXIDE LEVEL 9 MEQ/L (21-32); CHLORIDE LEVEL 124 MEQ/L (98-107); GLOMERULAR FILTRATION RATE > 60.0 (>56); GLUCOSE, FASTING 79 MG/DL (70-100); POTASSIUM SERUM 3.1 MEQ/L (3.5-5.1); SODIUM LEVEL 142 MEQ/L (136-145)
[2019-05-18 07:05] VITALS: BP 142/98
[2019-05-18] MEDS: HYOSCYAMINE SULFATE 0.125 MG SUBL TABLET SL PRN ×2 (08:58→21:08)
[2019-05-18] MEDS: MULTIVITAMINS/MINERALS THERAP 1 TAB PO SCH (08:58)
[2019-05-18] MEDS: CYANOCOBALAMIN 500 MCG TAB PO SCH (08:58)
[2019-05-18] MEDS: CHOLESTYRAMINE 4 GM PWD PKT PO SCH ×4 (08:59→21:07)
[2019-05-18] MEDS: NITAZOXANIDE 500 MG TAB (ALINIA) PO SCH (08:59)
[2019-05-18] MEDS: ATOVAQUONE SUSP 750MG/5ML 210 ML BTL PO SCH (08:59)
[2019-05-18] MEDS: APIXABAN 5 MG TAB (ELIQUIS) PO SCH ×2 (08:59→21:07)
[2019-05-18] MEDS: FERROUS GLUCONATE 324 MG TAB PO SCH (08:59)
[2019-05-18] MEDS: predniSONE 10 MG TAB PO SCH (08:59)
[2019-05-18] MEDS: MAGNESIUM CHLORIDE 64 MG TABCR (SLO MAG) PO SCH (09:00)
[2019-05-18] MEDS: CALCIUM CARBONATE 500 MG CHEW U/D PO PRN ×2 (12:44→22:17)
--- NOTE | 2019-05-18 13:37 | IPNPDOC ---
Text Note Date of Service The patient was seen on 05/18/19. NOTE Subjective: Patient has been having frequent bowel movements up to 8 for past 24 hours. Patient denies fever, chills, vomiting, shortness of breath, chest pain, dysuria Objective: General: NAD HEENT: NC, AT, PERRLA CVS: S1-S2 Lungs: Clear to auscultation bilaterally Abdomen: Nontender, moderately distended, bowel sounds present Extremities: No edema no cyanosis Neuro: Nonfocal, no nuchal rigidity Assessment and plan Patient is 48 years old male with past medical history of Staphylococcus aureus pneumonia, C. difficile colitis, psoriasis, Crohn diseases presented hospital with multiple episodes of diarrhea. Patient was found to have positive stool for cryptosporidium and C. diff on 05/10/19 Diarrhea Continues to have frequency up to 8 bowel movements for past 24 hours Secondary to C. difficile colitis superimposed with cryptosporidium infection c/w Vancomycin and Nitazoxanide dc Appreciate/agree with ID consult, No ID coverage until May 22 No GI coverage today Continue IV fluid IV hydration Crohn's disease Patient was on immunosuppressive therapy: Humira, Azathioprine. I stopped immunosuppressive therapy due to acute infection Atovaquone for PCP prophylaxis Continue prednisone 30 mg in order to prevent Crohn exacerbation c/w Vitamin supplementation PE c/w Eliquis Psoriasis Not in acute exacerbation Electrolyte imbalance Secondary to diarrhea Replace as needed Bilateral flank pain Most likely musculoskeletal Renal ultrasound unremarkable Urine analysis does not show pyuria VS,Fishbone, I+O VS, Fishbone, I+O Laboratory Tests 05/18/19 05:31 Vital Signs Date Time Temp Pulse Resp B/P (MAP) Pulse Ox O2 Delivery O2 Flow Rate FiO2 05/18/19 07:05 97.0 60 20 142/98 (113) 100 Room Air I&O- Last 24 Hours up to 6 AM 05/18/19 06:00 Intake Total 2100 ml Output Total 1800 ml Balance 300 ml LAUREN GRANT DO May 18, 2019 13:37
[2019-05-18 14:00] VITALS: BP 148/92
[2019-05-18] MEDS ORDERED: POTASSIUM CHLORIDE 10 MEQ SR TABLET PO ONE (14:00)
[2019-05-18] MEDS: ACETAMINOPHEN TAB 650MG DOSE (2X325MG) PO PRN (17:22)
[2019-05-18 22:00] VITALS: BP 162/86
[2019-05-19] MEDS: VANCOMYCIN ORAL SOL 250MG/5ML ORAL SYRINGE PO SCH ×6 (02:19→22:09)
[2019-05-19] MEDS: NS 1,000 ML IV SCH ×3 (03:46→20:43)
[2019-05-19] MEDS: SODIUM CHLORIDE 0.9% INJ 10 ML SYR IV SCH ×2 (05:54→18:04)
[2019-05-19 06:14] LABS: HEMATOCRIT 34.1 % (42.0-52.0); HEMOGLOBIN 11.1 g/dl (13.5-17.5); MEAN CORPUSCULAR HGB CONC 32.6 g/dl (32.0-36.5); MEAN CORPUSCULAR VOLUME 95.3 fl (80.0-96.0); PLATELET COUNT, AUTOMATED 262 10^3/uL (150-450); RED BLOOD COUNT 3.58 10^6/uL (4.30-6.10); WHITE BLOOD COUNT 9.1 10^3/uL (4.0-10.0)
[2019-05-19 06:15] VITALS: BP 138/90
[2019-05-19 06:34] LABS: BLOOD UREA NITROGEN 4 MG/DL (7-18); CALCIUM LEVEL 7.4 MG/DL (8.5-10.1); CARBON DIOXIDE LEVEL 11 MEQ/L (21-32); CHLORIDE LEVEL 126 MEQ/L (98-107); CREATININE FOR GFR 0.63 MG/DL (0.70-1.30); GLOMERULAR FILTRATION RATE > 60.0 (>56); GLUCOSE, FASTING 76 MG/DL (70-100); POTASSIUM SERUM 3.2 MEQ/L (3.5-5.1); SODIUM LEVEL 145 MEQ/L (136-145)
[2019-05-19 07:46] LABS: MAGNESIUM LEVEL 1.7 MG/DL (1.8-2.4)
[2019-05-19] MEDS ORDERED: POTASSIUM CHLORIDE 10 MEQ SR TABLET PO ONE (08:00)
[2019-05-19] MEDS: MAGNESIUM CHLORIDE 64 MG TABCR (SLO MAG) PO SCH (09:24)
[2019-05-19] MEDS: CHOLESTYRAMINE 4 GM PWD PKT PO SCH ×4 (09:24→20:43)
[2019-05-19] MEDS: FERROUS GLUCONATE 324 MG TAB PO SCH (09:25)
[2019-05-19] MEDS: predniSONE 10 MG TAB PO SCH (09:25)
[2019-05-19] MEDS: APIXABAN 5 MG TAB (ELIQUIS) PO SCH ×2 (09:25→20:43)
[2019-05-19] MEDS: MULTIVITAMINS/MINERALS THERAP 1 TAB PO SCH (09:25)
[2019-05-19] MEDS: ATOVAQUONE SUSP 750MG/5ML 210 ML BTL PO SCH (09:25)
[2019-05-19] MEDS: CYANOCOBALAMIN 500 MCG TAB PO SCH (09:25)
--- NOTE | 2019-05-19 10:56 | IPNPDOC ---
Text Note Date of Service The patient was seen on 05/19/19. NOTE Subjective: Patient has been having frequent bowel movements up to 12 for past 24 hours. Pt agreed to be transferred to [facility] Patient denies fever, chills, vomiting, shortness of breath, chest pain, dysuria Objective: General: NAD HEENT: NC, AT, PERRLA CVS: S1-S2 Lungs: Clear to auscultation bilaterally Abdomen: Nontender, moderately distended, bowel sounds present Extremities: No edema no cyanosis Neuro: Nonfocal, no nuchal rigidity Assessment and plan Patient is 48 years old male with past medical history of Staphylococcus aureus pneumonia, C. difficile colitis, psoriasis, Crohn diseases presented hospital with multiple episodes of diarrhea. Patient was found to have positive stool for cryptosporidium and C. diff on 05/10/19 Diarrhea Continues to have frequency up to 12 bowel movements for past 24 hours Secondary to C. difficile colitis superimposed with cryptosporidium infection c/w Vancomycin and Nitazoxanide dc Appreciate/agree with ID consult, No ID coverage until May 22 No GI coverage today Continue IV fluid IV hydration Crohn's disease Patient was on immunosuppressive therapy: Humira, Azathioprine. I stopped immunosuppressive therapy due to acute infection Atovaquone for PCP prophylaxis Continue prednisone 30 mg in order to prevent Crohn exacerbation c/w Vitamin supplementation PE c/w Eliquis Psoriasis Not in acute exacerbation Electrolyte imbalance Secondary to diarrhea Replace as needed Bilateral flank pain Resolved Most likely musculoskeletal Renal ultrasound unremarkable Urine analysis does not show pyuria VS,Fishbone, I+O VS, Fishbone, I+O Laboratory Tests 05/19/19 05:58 Vital Signs Date Time Temp Pulse Resp B/P (MAP) Pulse Ox O2 Delivery O2 Flow Rate FiO2 05/19/19 06:15 97.6 71 20 138/90 (106) 96 Room Air I&O- Last 24 Hours up to 6 AM 05/19/19 06:00 Intake Total 4900 ml Output Total 2000 ml Balance 2900 ml LAUREN GRANT DO May 19, 2019 10:56
[2019-05-19] MEDS ORDERED: MAG SULF 1GM/100ML (MAG RUN) 1 GM in IV 1 EA IV ONE (11:00)
[2019-05-19 14:00] VITALS: BP 136/80
[2019-05-19] MEDS: CALCIUM CARBONATE 500 MG CHEW U/D PO PRN (20:54)
[2019-05-20] MEDS: NS 1,000 ML IV SCH ×2 (02:09→09:34)
[2019-05-20] MEDS: VANCOMYCIN ORAL SOL 250MG/5ML ORAL SYRINGE PO SCH ×6 (02:09→22:06)
[2019-05-20] MEDS: SODIUM CHLORIDE 0.9% INJ 10 ML SYR IV SCH ×2 (05:44→17:56)
[2019-05-20 06:30] VITALS: BP 144/82
[2019-05-20 08:19] LABS: BASO % 0.3 % (0.0-1.0); EOS # 0.1 10^3/uL (0.0-0.5); EOS % 0.7 % (0.0-3.0); HEMATOCRIT 34.6 % (42.0-52.0); HEMOGLOBIN 10.9 g/dl (13.5-17.5); LYMPH # 2.2 10^3/uL (1.5-5.0); LYMPH % 21.7 % (24.0-44.0); MEAN CORPUSCULAR HEMOGLOBIN 30.1 pg (27.0-33.0); MEAN CORPUSCULAR HGB CONC 31.5 g/dl (32.0-36.5); MEAN CORPUSCULAR VOLUME 95.6 fl (80.0-96.0); MONO # 0.8 10^3/uL (0.0-0.8); MONO % 7.9 % (0.0-5.0); NEUTROPHILS # 6.7 10^3/uL (1.5-8.5); NEUTROPHILS % 67.2 % (36.0-66.0); PLATELET COUNT, AUTOMATED 245 10^3/uL (150-450); RED BLOOD COUNT 3.62 10^6/uL (4.30-6.10)
[2019-05-20 08:49] LABS: BLOOD UREA NITROGEN 3 MG/DL (7-18); CALCIUM LEVEL 7.2 MG/DL (8.5-10.1); CARBON DIOXIDE LEVEL 10 MEQ/L (21-32); CHLORIDE LEVEL 126 MEQ/L (98-107); CREATININE FOR GFR 0.57 MG/DL (0.70-1.30); GLOMERULAR FILTRATION RATE > 60.0 (>56); GLUCOSE, FASTING 71 MG/DL (70-100); MAGNESIUM LEVEL 1.8 MG/DL (1.8-2.4); POTASSIUM SERUM 2.9 MEQ/L (3.5-5.1); SODIUM LEVEL 145 MEQ/L (136-145)
[2019-05-20] MEDS ORDERED: POTASSIUM CHLORIDE 10 MEQ SR TABLET PO ONE (09:00)
[2019-05-20] MEDS: ACETAMINOPHEN TAB 650MG DOSE (2X325MG) PO PRN (09:29)
[2019-05-20] MEDS: CHOLESTYRAMINE 4 GM PWD PKT PO SCH ×4 (09:29→20:30)
[2019-05-20] MEDS: APIXABAN 5 MG TAB (ELIQUIS) PO SCH ×2 (09:30→20:29)
[2019-05-20] MEDS: CYANOCOBALAMIN 500 MCG TAB PO SCH (09:30)
[2019-05-20] MEDS: MAGNESIUM CHLORIDE 64 MG TABCR (SLO MAG) PO SCH (09:30)
[2019-05-20] MEDS: MULTIVITAMINS/MINERALS THERAP 1 TAB PO SCH (09:30)
[2019-05-20] MEDS: FERROUS GLUCONATE 324 MG TAB PO SCH (09:30)
[2019-05-20] MEDS: ATOVAQUONE SUSP 750MG/5ML 210 ML BTL PO SCH (09:31)
--- NOTE | 2019-05-20 11:17 | IPNPDOC ---
Text Note Date of Service The patient was seen on 05/20/19. NOTE Subjective: Patient has been having frequent bowel movements up to 14 for past 24 hours, worsening for past 24h. Pt agreed to be transferred to [facility] Patient denies fever, chills, vomiting, shortness of breath, chest pain, dysuria Objective: General: NAD HEENT: NC, AT, PERRLA CVS: S1-S2 Lungs: Clear to auscultation bilaterally Abdomen: Nontender, moderately distended, bowel sounds present Extremities: No edema no cyanosis Neuro: Nonfocal, no nuchal rigidity Assessment and plan Patient is 48 years old male with past medical history of Staphylococcus aureus pneumonia, C. difficile colitis, psoriasis, Crohn diseases presented hospital with multiple episodes of diarrhea. Patient was found to have positive stool for cryptosporidium and C. diff on 05/10/19 Diarrhea Continues to have frequency up to 12 bowel movements for past 24 hours Secondary to C. difficile colitis superimposed with cryptosporidium infection c/w Vancomycin and Nitazoxanide dc Appreciate/agree with ID consult, No ID coverage until May 25 No GI coverage today Continue IV fluid IV hydration Crohn's disease Patient was on immunosuppressive therapy: Humira, Azathioprine. I stopped immunosuppressive therapy due to acute infection Atovaquone for PCP prophylaxis I changed prednisone 30 mg to Solu-Medrol IV in order to intensify treatment for possible Crohn exacerbation c/w Vitamin supplementation PE c/w Eliquis Psoriasis Not in acute exacerbation Electrolyte imbalance Secondary to diarrhea Replace as needed Bilateral flank pain Resolved Most likely musculoskeletal Renal ultrasound unremarkable Urine analysis does not show pyuria VS,Fishbone, I+O VS, Fishbone, I+O Laboratory Tests 05/20/19 07:46 05/20/19 07:47 Vital Signs Date Time Temp Pulse Resp B/P (MAP) Pulse Ox O2 Delivery O2 Flow Rate FiO2 05/19/19 14:00 98.0 82 16 136/80 (98) 99 05/19/19 06:15 Room Air I&O- Last 24 Hours up to 6 AM 05/20/19 06:00 Intake Total 4620 ml Output Total 2400 ml Balance 2220 ml LAUREN GRANT DO May 20, 2019 11:17
[2019-05-20] MEDS ORDERED: MAG SULF 1GM/100ML (MAG RUN) 1 GM in IV 1 EA IV ONE (12:00)
[2019-05-20] MEDS: methylPREDNISolone INJ 40 MG/1 ML VIAL (J2920) IV SCH ×2 (12:14→22:06)
[2019-05-20] MEDS: KCL 20MEQ in NS 1000ML 1,000 ML IV SCH ×2 (13:29→22:06)
[2019-05-20 14:00] VITALS: BP 132/86
[2019-05-20 21:30] VITALS: BP 136/80
[2019-05-21] MEDS: VANCOMYCIN ORAL SOL 250MG/5ML ORAL SYRINGE PO SCH ×6 (02:22→21:21)
[2019-05-21] MEDS: ACETAMINOPHEN TAB 650MG DOSE (2X325MG) PO PRN (04:16)
[2019-05-21] MEDS: SODIUM CHLORIDE 0.9% INJ 10 ML SYR IV SCH ×2 (05:42→18:30)
[2019-05-21] MEDS: KCL 20MEQ in NS 1000ML 1,000 ML IV SCH ×2 (05:42→17:49)
[2019-05-21 06:01] LABS: HEMATOCRIT 33.9 % (42.0-52.0); MEAN CORPUSCULAR HEMOGLOBIN 30.3 pg (27.0-33.0); MEAN CORPUSCULAR HGB CONC 32.4 g/dl (32.0-36.5); MEAN CORPUSCULAR VOLUME 93.4 fl (80.0-96.0); PLATELET COUNT, AUTOMATED 281 10^3/uL (150-450); RED BLOOD COUNT 3.63 10^6/uL (4.30-6.10); WHITE BLOOD COUNT 9.6 10^3/uL (4.0-10.0)
[2019-05-21 06:19] LABS: BLOOD UREA NITROGEN 5 MG/DL (7-18); CALCIUM LEVEL 7.1 MG/DL (8.5-10.1); CARBON DIOXIDE LEVEL 12 MEQ/L (21-32); CHLORIDE LEVEL 124 MEQ/L (98-107); CREATININE FOR GFR 0.62 MG/DL (0.70-1.30); GLOMERULAR FILTRATION RATE > 60.0 (>56); GLUCOSE, FASTING 117 MG/DL (70-100); MAGNESIUM LEVEL 1.8 MG/DL (1.8-2.4); POTASSIUM SERUM 3.6 MEQ/L (3.5-5.1); SODIUM LEVEL 144 MEQ/L (136-145)
[2019-05-21] MEDS ORDERED: POTASSIUM CHLORIDE 10 MEQ SR TABLET PO ONE (09:00)
[2019-05-21] MEDS: ATOVAQUONE SUSP 750MG/5ML 210 ML BTL PO SCH (10:08)
[2019-05-21] MEDS: FERROUS GLUCONATE 324 MG TAB PO SCH (10:08)
[2019-05-21] MEDS: CHOLESTYRAMINE 4 GM PWD PKT PO SCH ×4 (10:08→21:21)
[2019-05-21] MEDS: CYANOCOBALAMIN 500 MCG TAB PO SCH (10:09)
[2019-05-21] MEDS: MAGNESIUM CHLORIDE 64 MG TABCR (SLO MAG) PO SCH (10:09)
[2019-05-21] MEDS: APIXABAN 5 MG TAB (ELIQUIS) PO SCH ×2 (10:09→21:20)
[2019-05-21] MEDS: methylPREDNISolone INJ 40 MG/1 ML VIAL (J2920) IV SCH ×2 (10:09→22:18)
[2019-05-21] MEDS: MULTIVITAMINS/MINERALS THERAP 1 TAB PO SCH (10:09)
[2019-05-21] MEDS: CALCIUM CARBONATE 500 MG CHEW U/D PO PRN ×2 (11:30→21:20)
[2019-05-21 14:00] VITALS: BP 128/82
--- NOTE | 2019-05-21 14:55 | IPNPDOC ---
Text Note Date of Service The patient was seen on 05/21/19. NOTE Subjective: Patient has been having frequent bowel movements up to 10 for past 24 hours. Pt agreed to be transferred to [facility] Patient denies fever, chills, vomiting, shortness of breath, chest pain, dysuria Objective: General: NAD HEENT: NC, AT, PERRLA CVS: S1-S2 Lungs: Clear to auscultation bilaterally Abdomen: Nontender, moderately distended, bowel sounds present Extremities: No edema no cyanosis Neuro: Nonfocal, no nuchal rigidity Assessment and plan Patient is 48 years old male with past medical history of Staphylococcus aureus pneumonia, C. difficile colitis, psoriasis, Crohn diseases presented hospital with multiple episodes of diarrhea. Patient was found to have positive stool for cryptosporidium and C. diff on 05/10/19 Diarrhea Continues to have frequency up to 12 bowel movements for past 24 hours Secondary to C. difficile colitis superimposed with cryptosporidium infection c/w Vancomycin and Nitazoxanide dc Appreciate/agree with ID consult, No ID coverage until May 25 No GI coverage today Continue IV fluid IV hydration Await transfer to [facility] Crohn's disease Patient was on immunosuppressive therapy: Humira, Azathioprine. I stopped immunosuppressive therapy due to acute infection Atovaquone for PCP prophylaxis I changed prednisone 30 mg to Solu-Medrol IV in order to intensify treatment for possible Crohn exacerbation c/w Vitamin supplementation PE c/w Eliquis Psoriasis Not in acute exacerbation Electrolyte imbalance Secondary to diarrhea Replace as needed Bilateral flank pain Resolved Most likely musculoskeletal Renal ultrasound unremarkable Urine analysis does not show pyuria VS,Fishbone, I+O VS, Fishbone, I+O Laboratory Tests 05/21/19 05:30 Vital Signs Date Time Temp Pulse Resp B/P (MAP) Pulse Ox O2 Delivery O2 Flow Rate FiO2 05/20/19 21:30 98.1 69 16 136/80 (98) 98 Room Air I&O- Last 24 Hours up to 6 AM 05/21/19 06:00 Intake Total 3490 ml Output Total 1350 ml Balance 2140 ml LAUREN GRANT DO May 21, 2019 14:55
[2019-05-21 22:00] VITALS: BP 146/86
[2019-05-22] MEDS: VANCOMYCIN ORAL SOL 250MG/5ML ORAL SYRINGE PO SCH ×6 (02:24→21:28)
[2019-05-22] MEDS: KCL 20MEQ in NS 1000ML 1,000 ML IV SCH ×3 (02:24→17:40)
[2019-05-22] MEDS: SODIUM CHLORIDE 0.9% INJ 10 ML SYR IV SCH ×2 (05:53→17:43)
[2019-05-22 06:00] VITALS: BP 140/88
[2019-05-22 06:07] LABS: HEMATOCRIT 31.8 % (42.0-52.0); HEMOGLOBIN 10.1 g/dl (13.5-17.5); MEAN CORPUSCULAR HEMOGLOBIN 30.1 pg (27.0-33.0); MEAN CORPUSCULAR HGB CONC 31.8 g/dl (32.0-36.5); MEAN CORPUSCULAR VOLUME 94.6 fl (80.0-96.0); PLATELET COUNT, AUTOMATED 257 10^3/uL (150-450); RED BLOOD COUNT 3.36 10^6/uL (4.30-6.10); WHITE BLOOD COUNT 11.8 10^3/uL (4.0-10.0)
[2019-05-22 06:33] LABS: BLOOD UREA NITROGEN 10 MG/DL (7-18); CALCIUM LEVEL 7.3 MG/DL (8.5-10.1); CARBON DIOXIDE LEVEL 14 MEQ/L (21-32); CHLORIDE LEVEL 123 MEQ/L (98-107); CREATININE FOR GFR 0.61 MG/DL (0.70-1.30); GLOMERULAR FILTRATION RATE > 60.0 (>56); GLUCOSE, FASTING 108 MG/DL (70-100); MAGNESIUM LEVEL 1.8 MG/DL (1.8-2.4); POTASSIUM SERUM 3.6 MEQ/L (3.5-5.1); SODIUM LEVEL 144 MEQ/L (136-145)
[2019-05-22] MEDS ORDERED: POTASSIUM CHLORIDE 10 MEQ SR TABLET PO ONE (07:45)
[2019-05-22] MEDS: CYANOCOBALAMIN 500 MCG TAB PO SCH (08:19)
[2019-05-22] MEDS: ATOVAQUONE SUSP 750MG/5ML 210 ML BTL PO SCH (08:19)
[2019-05-22] MEDS: MAGNESIUM CHLORIDE 64 MG TABCR (SLO MAG) PO SCH (08:19)
[2019-05-22] MEDS: MULTIVITAMINS/MINERALS THERAP 1 TAB PO SCH (08:19)
[2019-05-22] MEDS: APIXABAN 5 MG TAB (ELIQUIS) PO SCH ×2 (08:20→21:28)
[2019-05-22] MEDS: FERROUS GLUCONATE 324 MG TAB PO SCH (08:20)
[2019-05-22] MEDS: CHOLESTYRAMINE 4 GM PWD PKT PO SCH ×4 (08:21→21:28)
[2019-05-22] MEDS: methylPREDNISolone INJ 40 MG/1 ML VIAL (J2920) IV SCH ×2 (10:14→22:05)
[2019-05-22 14:00] VITALS: BP 140/90
--- NOTE | 2019-05-22 15:22 | IPNPDOC ---
Text Note Date of Service The patient was seen on 05/22/19. NOTE Subjective: Patient stated that his bowel movements markedly improved, he had semi solid stool overnight. Patient denies fever, chills, vomiting, shortness of breath, chest pain, dysuria Objective: General: NAD HEENT: NC, AT, PERRLA CVS: S1-S2 Lungs: Clear to auscultation bilaterally Abdomen: Nontender, moderately distended, bowel sounds present Extremities: No edema no cyanosis Neuro: Nonfocal, no nuchal rigidity Assessment and plan Patient is 48 years old male with past medical history of Staphylococcus aureus pneumonia, C. difficile colitis, psoriasis, Crohn diseases presented hospital with multiple episodes of diarrhea. Patient was found to have positive stool for cryptosporidium and C. diff on 05/10/19 Diarrhea Markedly improved, he had semisolid stool, no bowel movements overnight Secondary to C. difficile colitis superimposed with cryptosporidium infection c/w Vancomycin and Nitazoxanide dc Appreciate/agree with ID consult, No ID coverage until May 25 No GI coverage today Continue IV fluid IV hydration Crohn's disease Patient was on immunosuppressive therapy: Humira, Azathioprine. I stopped immunosuppressive therapy due to acute infection Atovaquone for PCP prophylaxis I changed prednisone 30 mg to Solu-Medrol IV in order to intensify treatment for possible Crohn exacerbation c/w Vitamin supplementation PE c/w Eliquis Psoriasis Not in acute exacerbation Electrolyte imbalance Secondary to diarrhea Replace as needed Bilateral flank pain Resolved Most likely musculoskeletal Renal ultrasound unremarkable Urine analysis does not show pyuria VS,Fishbone, I+O VS, Fishbone, I+O Laboratory Tests 05/22/19 05:52 Vital Signs Date Time Temp Pulse Resp B/P (MAP) Pulse Ox O2 Delivery O2 Flow Rate FiO2 05/22/19 14:00 98.9 87 16 140/90 (107) 97 05/22/19 06:00 Room Air I&O- Last 24 Hours up to 6 AM 05/22/19 06:00 Intake Total 3900 ml Output Total 1450 ml Balance 2450 ml LAUREN GRANT DO May 22, 2019 15:22
[2019-05-22] MEDS: CALCIUM CARBONATE 500 MG CHEW U/D PO PRN (21:28)
[2019-05-22 22:00] VITALS: BP 150/86
[2019-05-23] MEDS: VANCOMYCIN ORAL SOL 250MG/5ML ORAL SYRINGE PO SCH ×6 (01:47→22:41)
[2019-05-23] MEDS: KCL 20MEQ in NS 1000ML 1,000 ML IV SCH ×3 (01:47→17:19)
[2019-05-23] MEDS: SODIUM CHLORIDE 0.9% INJ 10 ML SYR IV SCH ×2 (05:11→17:24)
[2019-05-23 05:24] LABS: HEMATOCRIT 31.9 % (42.0-52.0); HEMOGLOBIN 10.1 g/dl (13.5-17.5); MEAN CORPUSCULAR HEMOGLOBIN 30.1 pg (27.0-33.0); MEAN CORPUSCULAR HGB CONC 31.7 g/dl (32.0-36.5); MEAN CORPUSCULAR VOLUME 94.9 fl (80.0-96.0); PLATELET COUNT, AUTOMATED 249 10^3/uL (150-450); RED BLOOD COUNT 3.36 10^6/uL (4.30-6.10); WHITE BLOOD COUNT 10.5 10^3/uL (4.0-10.0)
[2019-05-23 05:53] LABS: BLOOD UREA NITROGEN 12 MG/DL (7-18); CALCIUM LEVEL 7.1 MG/DL (8.5-10.1); CARBON DIOXIDE LEVEL 14 MEQ/L (21-32); CHLORIDE LEVEL 122 MEQ/L (98-107); GLOMERULAR FILTRATION RATE > 60.0 (>56); GLUCOSE, FASTING 114 MG/DL (70-100); MAGNESIUM LEVEL 1.8 MG/DL (1.8-2.4); POTASSIUM SERUM 3.6 MEQ/L (3.5-5.1); SODIUM LEVEL 145 MEQ/L (136-145)
[2019-05-23 06:00] VITALS: BP 134/78
[2019-05-23] MEDS ORDERED: POTASSIUM CHLORIDE 10 MEQ SR TABLET PO ONE (07:45)
[2019-05-23] MEDS: ATOVAQUONE SUSP 750MG/5ML 210 ML BTL PO SCH (09:03)
[2019-05-23] MEDS: MAGNESIUM CHLORIDE 64 MG TABCR (SLO MAG) PO SCH (09:03)
[2019-05-23] MEDS: CYANOCOBALAMIN 500 MCG TAB PO SCH (09:03)
[2019-05-23] MEDS: CHOLESTYRAMINE 4 GM PWD PKT PO SCH ×4 (09:03→20:29)
[2019-05-23] MEDS: APIXABAN 5 MG TAB (ELIQUIS) PO SCH ×2 (09:04→20:30)
[2019-05-23] MEDS: FERROUS GLUCONATE 324 MG TAB PO SCH (09:04)
[2019-05-23] MEDS: MULTIVITAMINS/MINERALS THERAP 1 TAB PO SCH (09:04)
--- NOTE | 2019-05-23 11:09 | IPNPDOC ---
Text Note Date of Service The patient was seen on 05/23/19. NOTE Subjective: Patient stated that his bowel movements frequent again, he developed 5-6 watery bowel movements over 12 hours. Patient denies fever, chills, vomiting, shortness of breath, chest pain, dysuria Objective: General: NAD HEENT: NC, AT, PERRLA CVS: S1-S2 Lungs: Clear to auscultation bilaterally Abdomen: Nontender, moderately distended, bowel sounds present Extremities: No edema no cyanosis Neuro: Nonfocal, no nuchal rigidity Assessment and plan Patient is 48 years old male with past medical history of Staphylococcus aureus pneumonia, C. difficile colitis, psoriasis, Crohn diseases presented hospital with multiple episodes of diarrhea. Patient was found to have positive stool for cryptosporidium and C. diff on 05/10/19 Diarrhea Secondary to C. difficile colitis superimposed with cryptosporidium infection c/w Vancomycin and Nitazoxanide dc Appreciate/agree with ID consult, No ID coverage until May 25 No GI coverage today Continue IV fluid IV hydration Lomotil added Crohn's disease Patient was on immunosuppressive therapy: Humira, Azathioprine. I stopped immunosuppressive therapy due to acute infection Atovaquone for PCP prophylaxis I changed prednisone 30 mg to Solu-Medrol IV in order to intensify treatment for possible Crohn exacerbation c/w Vitamin supplementation PE c/w Eliquis Psoriasis Not in acute exacerbation Electrolyte imbalance Secondary to diarrhea Replace as needed Bilateral flank pain Resolved Most likely musculoskeletal Renal ultrasound unremarkable Urine analysis does not show pyuria VS,Fishbone, I+O VS, Fishbone, I+O Laboratory Tests 05/23/19 05:08 Vital Signs Date Time Temp Pulse Resp B/P (MAP) Pulse Ox O2 Delivery O2 Flow Rate FiO2 05/23/19 08:00 16 05/23/19 06:00 98.3 65 134/78 (96) 98 Room Air I&O- Last 24 Hours up to 6 AM 05/23/19 06:00 Intake Total 5320 ml Output Total 2600 ml Balance 2720 ml LAUREN GRANT DO May 23, 2019 11:09
[2019-05-23] MEDS: LOMOTIL 2.5MG/0.025MG TABLET PO SCH ×3 (11:43→20:30)
[2019-05-23] MEDS: methylPREDNISolone INJ 40 MG/1 ML VIAL (J2920) IV SCH ×2 (11:43→22:41)
[2019-05-23 14:00] VITALS: BP 138/86
[2019-05-23] MEDS: ACETAMINOPHEN TAB 650MG DOSE (2X325MG) PO PRN (19:36)
[2019-05-23 22:00] VITALS: BP 140/82
[2019-05-24] MEDS: KCL 20MEQ in NS 1000ML 1,000 ML IV SCH ×3 (01:01→17:09)
[2019-05-24] MEDS: VANCOMYCIN ORAL SOL 250MG/5ML ORAL SYRINGE PO SCH ×6 (01:01→22:00)
[2019-05-24] MEDS: ACETAMINOPHEN TAB 650MG DOSE (2X325MG) PO PRN (01:44)
[2019-05-24] MEDS: SODIUM CHLORIDE 0.9% INJ 10 ML SYR IV SCH ×2 (05:38→17:09)
[2019-05-24 05:51] LABS: HEMATOCRIT 30.7 % (42.0-52.0); HEMOGLOBIN 9.7 g/dl (13.5-17.5); MEAN CORPUSCULAR HEMOGLOBIN 29.9 pg (27.0-33.0); MEAN CORPUSCULAR HGB CONC 31.6 g/dl (32.0-36.5); MEAN CORPUSCULAR VOLUME 94.8 fl (80.0-96.0); PLATELET COUNT, AUTOMATED 227 10^3/uL (150-450); RED BLOOD COUNT 3.24 10^6/uL (4.30-6.10); WHITE BLOOD COUNT 9.1 10^3/uL (4.0-10.0)
[2019-05-24 06:00] VITALS: BP 128/80
[2019-05-24 06:22] LABS: BLOOD UREA NITROGEN 11 MG/DL (7-18); CALCIUM LEVEL 7.4 MG/DL (8.5-10.1); CARBON DIOXIDE LEVEL 18 MEQ/L (21-32); CHLORIDE LEVEL 120 MEQ/L (98-107); CREATININE FOR GFR 0.61 MG/DL (0.70-1.30); GLOMERULAR FILTRATION RATE > 60.0 (>56); GLUCOSE, FASTING 114 MG/DL (70-100); MAGNESIUM LEVEL 1.8 MG/DL (1.8-2.4); POTASSIUM SERUM 3.8 MEQ/L (3.5-5.1); SODIUM LEVEL 145 MEQ/L (136-145)
[2019-05-24] MEDS: ATOVAQUONE SUSP 750MG/5ML 210 ML BTL PO SCH (08:42)
[2019-05-24] MEDS: CHOLESTYRAMINE 4 GM PWD PKT PO SCH ×4 (08:42→20:32)
[2019-05-24] MEDS: FERROUS GLUCONATE 324 MG TAB PO SCH (08:43)
[2019-05-24] MEDS: CYANOCOBALAMIN 500 MCG TAB PO SCH (08:43)
[2019-05-24] MEDS: APIXABAN 5 MG TAB (ELIQUIS) PO SCH ×2 (08:43→20:32)
[2019-05-24] MEDS: LOMOTIL 2.5MG/0.025MG TABLET PO SCH ×4 (08:43→20:32)
[2019-05-24] MEDS: MAGNESIUM CHLORIDE 64 MG TABCR (SLO MAG) PO SCH (08:43)
[2019-05-24] MEDS: MULTIVITAMINS/MINERALS THERAP 1 TAB PO SCH (08:43)
--- NOTE | 2019-05-24 11:34 | IPNPDOC ---
Text Note Date of Service The patient was seen on 05/24/19. NOTE Subjective: Patient stated that his bowel movements frequent again, he developed 8 watery bowel movements over 12 hours. Patient denies fever, chills, vomiting, shortness of breath, chest pain, dysuria Objective: General: NAD HEENT: NC, AT, PERRLA CVS: S1-S2 Lungs: Clear to auscultation bilaterally Abdomen: Nontender, moderately distended, bowel sounds present Extremities: No edema no cyanosis Neuro: Nonfocal, no nuchal rigidity Assessment and plan Patient is 48 years old male with past medical history of Staphylococcus aureus pneumonia, C. difficile colitis, psoriasis, Crohn diseases presented hospital with multiple episodes of diarrhea. Patient was found to have positive stool for cryptosporidium and C. diff on 05/10/19 Diarrhea Secondary to C. difficile colitis superimposed with cryptosporidium infection c/w Vancomycin and Nitazoxanide dc Dr. Seo will see patient today Continue IV fluid IV hydration Lomotil added Crohn's disease Patient was on immunosuppressive therapy: Humira, Azathioprine. I stopped immunosuppressive therapy due to acute infection Atovaquone for PCP prophylaxis I changed prednisone 30 mg to Solu-Medrol IV in order to intensify treatment for possible Crohn exacerbation c/w Vitamin supplementation PE c/w Eliquis Psoriasis Not in acute exacerbation Electrolyte imbalance Secondary to diarrhea Replace as needed Bilateral flank pain Resolved Most likely musculoskeletal Renal ultrasound unremarkable Urine analysis does not show pyuria VS,Fishbone, I+O VS, Fishbone, I+O Laboratory Tests 05/24/19 05:38 Vital Signs Date Time Temp Pulse Resp B/P (MAP) Pulse Ox O2 Delivery O2 Flow Rate FiO2 05/24/19 06:00 97.5 67 18 128/80 (96) 98 Room Air I&O- Last 24 Hours up to 6 AM 05/24/19 06:00 Intake Total 5530 ml Output Total 3525 ml Balance 2004 ml LAUREN GRANT DO May 24, 2019 11:34
[2019-05-24] MEDS: CALCIUM CARBONATE 500 MG CHEW U/D PO PRN (11:41)
[2019-05-24] MEDS: methylPREDNISolone INJ 40 MG/1 ML VIAL (J2920) IV SCH ×2 (11:41→23:28)
[2019-05-24 14:00] VITALS: BP 122/65
[2019-05-25 00:01] VITALS: BP 138/80
[2019-05-25] MEDS: KCL 20MEQ in NS 1000ML 1,000 ML IV SCH (00:42)
[2019-05-25] MEDS: VANCOMYCIN ORAL SOL 250MG/5ML ORAL SYRINGE PO SCH ×3 (00:42→08:09)
[2019-05-25] MEDS: SODIUM CHLORIDE 0.9% INJ 10 ML SYR IV SCH (05:50)
[2019-05-25 06:17] LABS: HEMATOCRIT 30.9 % (42.0-52.0); HEMOGLOBIN 10.1 g/dl (13.5-17.5); MEAN CORPUSCULAR HEMOGLOBIN 30.6 pg (27.0-33.0); MEAN CORPUSCULAR HGB CONC 32.7 g/dl (32.0-36.5); MEAN CORPUSCULAR VOLUME 93.6 fl (80.0-96.0); PLATELET COUNT, AUTOMATED 231 10^3/uL (150-450); WHITE BLOOD COUNT 9.7 10^3/uL (4.0-10.0)
[2019-05-25 06:44] LABS: BLOOD UREA NITROGEN 10 MG/DL (7-18); CALCIUM LEVEL 7.5 MG/DL (8.5-10.1); CARBON DIOXIDE LEVEL 22 MEQ/L (21-32); CHLORIDE LEVEL 114 MEQ/L (98-107); CREATININE FOR GFR 0.62 MG/DL (0.70-1.30); GLOMERULAR FILTRATION RATE > 60.0 (>56); GLUCOSE, FASTING 123 MG/DL (70-100); POTASSIUM SERUM 3.8 MEQ/L (3.5-5.1); SODIUM LEVEL 144 MEQ/L (136-145)
[2019-05-25 07:06] VITALS: BP 140/70
[2019-05-25] MEDS: MAGNESIUM CHLORIDE 64 MG TABCR (SLO MAG) PO SCH (08:08)
[2019-05-25] MEDS: FERROUS GLUCONATE 324 MG TAB PO SCH (08:08)
[2019-05-25] MEDS: LOMOTIL 2.5MG/0.025MG TABLET PO SCH ×2 (08:08→13:24)
[2019-05-25] MEDS: CYANOCOBALAMIN 500 MCG TAB PO SCH (08:08)
[2019-05-25] MEDS: CHOLESTYRAMINE 4 GM PWD PKT PO SCH ×2 (08:09→13:00)
[2019-05-25] MEDS: ATOVAQUONE SUSP 750MG/5ML 210 ML BTL PO SCH (08:09)
[2019-05-25] MEDS: APIXABAN 5 MG TAB (ELIQUIS) PO SCH (08:09)
[2019-05-25] MEDS: MULTIVITAMINS/MINERALS THERAP 1 TAB PO SCH (08:09)
[2019-05-25] MEDS: methylPREDNISolone INJ 40 MG/1 ML VIAL (J2920) IV SCH (11:00)
[2019-05-25] MEDS ORDERED: PRED10TA2 PO (11:15)
--- NOTE | 2019-05-25 16:12 | DS.PDOC ---
Discharge Summary General Date of Admission May 12, 2019 at 23:44 Date of Discharge 05/25/19 Discharge Summary PROCEDURES PERFORMED DURING STAY: [None]. ADMITTING DIAGNOSES: C. difficile colitis Cryptosporidium infection Dehydration Crohn's Disease Chronic Hypokalemia and Hypomagnesemia History of Pulmonary Embolism Psoriasis Electrolyte imbalance Bilateral flank pain DISCHARGE DIAGNOSES: C. difficile colitis Cryptosporidium infection Dehydration Crohn's Disease Chronic Hypokalemia and Hypomagnesemia History of Pulmonary Embolism Psoriasis Electrolyte imbalance Bilateral flank pain COMPLICATIONS/CHIEF COMPLAINT: C Difficile Diarrhea,Crohn's Colitis,Dehydration. HISTORY OF PRESENT ILLNESS:Patient is a 48 year old male chronically immunosuppressed for crohns disease who presented to the [facility] ER with a complaint of nonbloody diarrhea. The patient was recently hospitalized on 05/10/2019 and found to have C. difficile and cryptosporidium. The patient has a history of C. 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 The patient was recently started on Vancomycin and Nitazoxanide. Reportedly the patients diarrhea was improving and he was discharged. Unfortunately after returning home he continued to have diarrhea and was unable to keep hydrated. He reported feeling weak and stated that he has had little urination since returning home. The patient decided to return to the ER for further evaluation. In the ER the patient was found to be vitally stable. He had a mild elevation in WBC. His lactic acid was 1.6. HOSPITAL COURSE: During hospital stay the following issue addressed Diarrhea secondary to C. difficile colitis superimposed with cryptosporidium infection Patient received treatment with Vancomycin and Nitazoxanide Repeated stool was negative for Cryptosporidium and C. difficile infection Dr. Seo recommended to restart azathioprine and Humira after discharge Crohn's disease Patient was on immunosuppressive therapy: Humira, Azathioprine. I stopped immunosuppressive therapy due to acute infection Atovaquone for PCP prophylaxis I changed prednisone 30 mg to Solu-Medrol IV in order to intensify treatment for possible Crohn exacerbation On discharge recommended to continue by mouth prednisone with taper PE c/w Eliquis Psoriasis Not in acute exacerbation Electrolyte imbalance Secondary to diarrhea Replace as needed Bilateral flank pain Resolved Most likely musculoskeletal Renal ultrasound unremarkable Urine analysis does not show pyuria DISCHARGE MEDICATIONS: Please see below. ALLERGIES: Please see below. PHYSICAL EXAMINATION ON DISCHARGE: VITAL SIGNS: Please see below. General: NAD HEENT: NC, AT, PERRLA CVS: S1-S2 Lungs: Clear to auscultation bilaterally Abdomen: Nontender, moderately distended, bowel sounds present Extremities: No edema no cyanosis Neuro: Nonfocal, no nuchal rigidity LABORATORY DATA: Please see below. IMAGING: Technique: Real time sheth scale ultrasound examination using curved array transducer. Findings: Bilateral kidneys are normal in contour, size, echogenicity, and reniform shape without hydronephrosis, nephrolithiasis, cystic or renal mass lesion. No perinephric fluid collection. Right kidney measures 11.1 x 5.1 x 5.7 cm. Left kidney measures at 11.3 x 5.2 x 6.0 cm. Bladder is collapsed. Impression: Normal renal ultrasound. PROGNOSIS: Favorable ACTIVITY:As tolerated DIET: Regular diet DISCHARGE PLAN: Home DISPOSITION: Home, Self-Care. 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 Vital Signs/I&Os Vital Signs Date Time Temp Pulse Resp B/P (MAP) Pulse Ox O2 Delivery O2 Flow Rate FiO2 05/25/19 07:06 97.8 51 16 140/70 (93) 97 Room Air I&O- Last 24 Hours up to 6 AM 05/25/19 05:59 Intake Total 2610 ml Output Total 2400 ml Balance 210 ml Laboratory Data Labs 24H Laboratory Tests 2 05/25/19 05:55: Nucleated Red Blood Cells % (auto) 0.0, Anion Gap 8, Glomerular Filtration Rate > 60.0, Calcium Level 7.5L, Magnesium Level 2.0 CBC/BMP Laboratory Tests 05/25/19 05:55 Discharge Medications Scheduled Adalimumab (Humira(Cf) Pen) 40 Mg/0.4 Ml Pen.ij.kit, 80 MG SQ Q2WK, (Reported) EVERY OTHER FRIDAY Apixaban (Eliquis) 5 Mg Tablet, 5 MG PO BID, (Reported) Atovaquone (Atovaquone) 750 Mg/5 Ml Oral.susp, 1,500 MG PO DAILY, (Reported) Azathioprine (Azathioprine) 50 Mg Tablet, 100 MG PO DAILY, (Reported) Cyanocobalamin (Vitamin B-12) (Vitamin B-12) 1,000 Mcg Tablet, 1,000 MCG PO DAILY, (Reported) Ergocalciferol (Vitamin D2) (Vitamin D2) 50,000 Units Cap, 50,000 UNITS PO QWEEK, (Reported) TUESDAYS Ferrous Gluconate (Ferrous Gluconate) 324 Mg Tablet, 324 MG PO DAILY, (Reported) L.acidoph/L.bulg/B.bif/S.therm (Bacid Caplet) 1 Each Tablet, 1 TAB PO WM, (Reported) Magnesium Chloride (Mag64) 64 Mg Tablet.dr, 128 MG PO DAILY, (Reported) Multivitamin (Multivitamins) 1 Each Tablet, 1 TAB PO DAILY, (Reported) Prednisone (Prednisone) 10 Mg Tablet, 10 MG PO TAPER 30MG FOR 7 DAYS, 20MG FOR 7 DAYS, 10MG FOR 7 DAYS: PATIENT'S LAST DOSE WAS THE FIRST DOSE OF 30MG. Scheduled PRN Acetaminophen (Tylenol Extra Strength) 500 Mg Tablet, 1,000 MG PO Q6H PRN for PAIN, (Reported) Bismuth Subsalicylate (Pepto-Bismol) 262 Mg/15 Ml Oral.susp, 30 ML PO Q6H PRN for UPSET STOMACH, (Reported) Calcium Carbonate (Tums) 200 Mg Tab.chew, 1,500 MG PO QID PRN for INDIGESTION, (Reported) Cholestyramine (with Sugar) (Questran Packet) 4 Gm Powd.pack, 4 GM PO QID PRN for DIARRHEA, (Reported) Diphenhydramine HCl (Diphenhydramine HCl) 50 Mg Capsule, 50 MG PO Q6H PRN for ITCHING, (Reported) Diphenhydramine HCl/Zinc Acet (Benadryl Itch Stopping Crm) 28.3 Gm Cream..g., 1 DOSE TOP TID PRN for RASH/ITCHING, (Reported) Hyoscyamine Sulfate (Hyoscyamine Sulfate ER) 0.375 Mg Tab.er.12h, 0.75 MG PO Q12H PRN for ABDOMINAL PAIN, (Reported) Loperamide HCl (Imodium A-D) 2 Mg Capsule, 2 MG PO Q6H PRN for DIARRHEA, (Reported) Allergies Coded Allergies: epinephrine (Verified Adverse Reaction, Intermediate, HIGH DOSE EPI - SANDY RE SVT, 05/12/19) codeine (Verified Adverse Reaction, Mild, hallucinations, 05/12/19) LAUREN GRANT DO May 25, 2019 16:12
--- NOTE | 2019-05-25 20:58 | CR ---
DATE OF CONSULTATION: 05/24/2019 This is a 48-year white male known to me who has a history of developing apparent indeterminate inflammatory bowel disease, possibly secondary to a reaction to Enbrel. The patient has had some difficulty in obtaining good control with medications. He developed pneumonia with cavitation. He has had problems with controlling diarrhea, has had issues with diarrhea up to 20-25 times a day. He has been admitted since 05/10/2019 and stool testing showed Clostridium difficile (C diff) and Cryptosporidium. 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 The Clostridium difficile is probably just secondary to being immune suppressed. Recent studies have suggested that you may contract Clostridium difficile without getting antibiotics. At the time of this consultation, when we saw this patient on 05/24/2019, he was feeling better. He has been treated with medication for his cryptosporidiosis and his Clostridium difficile. He has no complaints of abdominal pain, nausea or vomiting. He has been started on a regular diet. He has currently been taken off his oral medications and has been put on intravenous (IV) steroids. PAST MEDICAL HISTORY: 1. Positive indeterminate inflammatory bowel disease. 2. History of psoriatic arthritis. 3. Status post pneumonia with cavitary lesions. 4. History of pulmonary embolism (PE), on Eliquis 5. History of asthma. 6. 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 PAST SURGICAL HISTORY: Colonoscopy times two. Bronchoscopy times one in 2019. Upper endoscopy in 2019. 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 No history of cigarettes or alcohol abuse. He denies any IV drugs. FAMILY HISTORY: Noncontributory to the above problem, though there is a history of father of Hodgkin's lymphoma and of pulmonary embolism. Mother has a history pulmonary hypertension and coronary artery disease. REVIEW OF SYSTEMS: Noncontributory to the above problem. PHYSICAL EXAMINATION: Essentially normal. LABORATORY STUDIES: On the date consultation, showed a white count 9100, hemoglobin and hematocrit was 9.7 and 30.7, platelets were 227,000. The patient's chemistry was normal with a normal BUN and creatinine. The patient's complete profile showed normal liver functions, an albumin of 4.1, and creatinine and BUN were normal. The patient's imaging studies on his hospitalization were not pertinent to the gastrointestinal (GI) tract. ANALYSIS: 1. Indeterminate colitis. The patient was on Humira shots 80 mg every other week, plus azathioprine 100 mg a day. 2. The patient is on a tapering dose of prednisone and was on 10 mg a day. PLAN: 1. Plan will be to restart the patient on azathioprine 100 mg a day plus 80 mg of Humira when he gets home. 2. Will send the patient home on 30 mg of prednisone in a tapering dose. 3. The patient will be following up with Dr. Huber as an outpatient.
== END 2019-05-25 13:40 | disposition home or self-care (01) | DRG 372 ==
LOC: M ED 21:43 → M ED INP 23:44 → M MS5PR 05-13 00:45
PROVIDERS: ADMIT Internal Medicine; ATTEND Internal Medicine
PROC: 02HV33Z Insertion of Infusion Device into Superior Vena Cava, Percutaneous Approach (ICD-10-PCS; principal; 2019-05-17 16:00)
DX: A04.72 Enterocolitis due to Clostridium difficile, not specified as recurrent (principal); K50.90 Crohn's disease, unspecified, without complications; E86.0 Dehydration; E87.6 Hypokalemia; E83.42 Hypomagnesemia; L40.8 Other psoriasis; Z86.711 Personal history of pulmonary embolism; Z79.01 Long term (current) use of anticoagulants; A07.2 Cryptosporidiosis; Z79.899 Other long term (current) drug therapy; Z88.5 Allergy status to narcotic agent; Z88.8 Allergy status to other drugs, medicaments and biological substances; L40.50 Arthropathic psoriasis, unspecified; J45.909 Unspecified asthma, uncomplicated

== ENCOUNTER → 2019-06-02 | Outpatient (CLI) | payer BC ==
[~2019-06-02] MED LIST changes: +ACET-897 PO; +FERR325T16 PO; +VANC250C3 PO
[2019-06-02 16:45] LABS: BASO % 0.2 % (0.0-1.0); EOS % 0.1 % (0.0-3.0); HEMATOCRIT 40.4 % (42.0-52.0); HEMOGLOBIN 12.8 g/dl (13.5-17.5); LYMPH # 0.7 10^3/uL (1.5-5.0); LYMPH % 5.9 % (24.0-44.0); MEAN CORPUSCULAR HEMOGLOBIN 30.5 pg (27.0-33.0); MEAN CORPUSCULAR HGB CONC 31.7 g/dl (32.0-36.5); MEAN CORPUSCULAR VOLUME 96.4 fl (80.0-96.0); MONO # 0.3 10^3/uL (0.0-0.8); MONO % 2.6 % (0.0-5.0); NEUTROPHILS # 9.8 10^3/uL (1.5-8.5); NEUTROPHILS % 89.6 % (36.0-66.0); PLATELET COUNT, AUTOMATED 206 10^3/uL (150-450); RED BLOOD COUNT 4.19 10^6/uL (4.30-6.10)
[2019-06-02 16:54] LABS: ALBUMIN 3.6 GM/DL (3.2-5.2); ALT/SGPT 143 U/L (12-78); BILIRUBIN,TOTAL 0.6 MG/DL (0.2-1.0); BLOOD UREA NITROGEN 17 MG/DL (7-18); C REACTIVE PROTEIN QUANTITATIV < 0.30 MG/DL (0.00-0.30); CALCIUM LEVEL 8.8 MG/DL (8.5-10.1); CARBON DIOXIDE LEVEL 20 MEQ/L (21-32); CHLORIDE LEVEL 109 MEQ/L (98-107); CREATININE FOR GFR 0.97 MG/DL (0.70-1.30); GLOMERULAR FILTRATION RATE > 60.0 (>56); GLUCOSE, FASTING 123 MG/DL (70-100); IRON (FE) 116 UG/DL (65-175); PERCENT SATURATION 31.4 % (19.7-50.0); POTASSIUM SERUM 4.3 MEQ/L (3.5-5.1); SODIUM LEVEL 139 MEQ/L (136-145); TOTAL IRON BINDING CAPACITY 370 UG/DL (250-450); TOTAL PROTEIN 7.2 GM/DL (6.4-8.2)
[2019-06-02 16:57] LABS: VITAMIN B12 LEVEL 461 PG/ML (247-911)
[2019-06-02 21:01] LABS: CLOSTRIDIUM DIFFICILE PCR NEGATIVE (NEGATIVE)
== END ==
LOC: M LRY 12:21
PROVIDERS: ATTEND Internal Medicine Gastroenterology
DX: K50.818 Crohn's disease of both small and large intestine with other complication (principal)

== ENCOUNTER → 2019-06-07 | Outpatient (CLI) | payer BC ==
[2019-06-07 20:41] LABS: ALBUMIN 3.4 GM/DL (3.2-5.2); ALT/SGPT 92 U/L (12-78); BILIRUBIN,DIRECT 0.1 MG/DL (0.0-0.2); BILIRUBIN,TOTAL 0.4 MG/DL (0.2-1.0); TOTAL PROTEIN 6.6 GM/DL (6.4-8.2)
[2019-06-09 10:29] LABS: HEPATITIS B SURFACE ANTIGEN NEGATIVE (NEGATIVE)
[2019-06-09 10:56] LABS: HEPATITIS B CORE ANTIBODY IGM NEGATIVE (NEGATIVE); HEPATITIS C VIRUS ABY INDEX < 0.0 INDEX (<0.8)
[2019-06-09 10:59] LABS: HEPATITIS A ANTIBODY IGM NEGATIVE (NEGATIVE)
== END ==
LOC: M LRY 12:47
PROVIDERS: ATTEND Internal Medicine Gastroenterology
DX: R74.8 Abnormal levels of other serum enzymes (principal)

== ENCOUNTER → 2019-06-09 | Outpatient (REF) | payer BC ==
[2019-06-09 16:48] LABS: HEMOGLOBIN A1c 5.2 %
== END ==
LOC: M SFHCLERA 12:47
PROVIDERS: ATTEND Family Medicine
DX: Z79.52 Long term (current) use of systemic steroids (principal)

== ENCOUNTER → 2019-06-09 | Outpatient (CLI) | payer BC ==
--- NOTE | 2019-06-10 03:35 | REP ---
Clinical: Abnormal liver function tests. Technique: Real time sheth scale ultrasound examination using curved array transducer. Findings: Liver is increased echogenicity with poor through transmission suggesting fatty infiltration. No focal hepatic lesion identified. Mild hepatomegaly cannot be excluded. The pancreas is incompletely evaluated due to interposed bowel gas but visualized portions appear normal. Multiple gallstones are identified without wall thickening or pericholecystic fluid. No biliary ductal dilatation is appreciated and the common bile duct measures 4.0 mm diameter. The right kidney is normal in reniform shape without hydronephrosis and measures 11.9 x 6.2 x 5.7 cm. No ascites. Impression: Hepatic steatosis. Cholelithiasis. Electronically Signed by Ramon Noyola MD 06/10/2019 03:27 A
== END ==
LOC: M LRY 08:42
PROVIDERS: ATTEND Internal Medicine Infectious Disease
DX: R94.5 Abnormal results of liver function studies (principal)

== ENCOUNTER → 2019-06-14 | Outpatient (CLI) | payer BC ==
--- NOTE | 2019-06-16 14:06 | DEXA ---
AP SPINE L1 - L4 1.151 -0.4 -0.5 LT FEMUR TOTAL 1.135 1.0 0.6 LT NECK 1.103 0.5 0.9 RT FEMUR TOTAL 1.105 0.8 0.4 RT NECK 1.069 0.2 0.6 TOTAL BODY TOTAL OTHER COMMENTS: Normal bone densitometry of the spine and hips. FOLLOW-UP: Recommendation for the next bone density exam: 5 years. ROSE
== END ==
LOC: M WHC 08:24
PROVIDERS: ATTEND Internal Medicine Gastroenterology
DX: K50.818 Crohn's disease of both small and large intestine with other complication (principal)

== ENCOUNTER → 2019-06-21 | Outpatient (CLI) | payer BC ==
[2019-06-21 16:55] LABS: BASO # 0.1 10^3/uL (0.0-0.2); BASO % 0.6 % (0.0-1.0); EOS % 0.2 % (0.0-3.0); HEMATOCRIT 41.8 % (42.0-52.0); HEMOGLOBIN 12.7 g/dl (13.5-17.5); LYMPH # 1.3 10^3/uL (1.5-5.0); LYMPH % 10.7 % (24.0-44.0); MEAN CORPUSCULAR HEMOGLOBIN 29.7 pg (27.0-33.0); MEAN CORPUSCULAR HGB CONC 30.4 g/dl (32.0-36.5); MEAN CORPUSCULAR VOLUME 97.7 fl (80.0-96.0); MONO # 0.5 10^3/uL (0.0-0.8); MONO % 4.3 % (0.0-5.0); NEUTROPHILS # 9.5 10^3/uL (1.5-8.5); NEUTROPHILS % 79.4 % (36.0-66.0); PLATELET COUNT, AUTOMATED 229 10^3/uL (150-450); RED BLOOD COUNT 4.28 10^6/uL (4.30-6.10)
[2019-06-21 17:09] LABS: ALBUMIN 3.5 GM/DL (3.2-5.2); ALT/SGPT 134 U/L (12-78); BILIRUBIN,TOTAL 0.5 MG/DL (0.2-1.0); BLOOD UREA NITROGEN 17 MG/DL (7-18); CALCIUM LEVEL 8.3 MG/DL (8.5-10.1); CARBON DIOXIDE LEVEL 17 MEQ/L (21-32); CHLORIDE LEVEL 112 MEQ/L (98-107); FREE T4 1.04 NG/DL (0.76-1.46); GLOMERULAR FILTRATION RATE > 60.0 (>56); GLUCOSE, FASTING 131 MG/DL (70-100); POTASSIUM SERUM 4.7 MEQ/L (3.5-5.1); SODIUM LEVEL 138 MEQ/L (136-145); TOTAL PROTEIN 7.3 GM/DL (6.4-8.2)
== END ==
LOC: M LRY 12:27
PROVIDERS: ATTEND Internal Medicine Gastroenterology
DX: K50.818 Crohn's disease of both small and large intestine with other complication (principal)

== ENCOUNTER → 2019-06-21 | Outpatient (CLI) | payer BC | LOC: M LRY 12:33 | PROVIDERS: ATTEND Internal Medicine Gastroenterology | DX: K50.818 Crohn's disease of both small and large intestine with other complication (principal) ==

== ENCOUNTER 2019-06-22 15:03 | Outpatient (CLI) | payer BC ==
[~2019-06-22] VITALS: Ht 188 cm; Wt 103.8 kg
[2019-06-22 15:15] VITALS: BP 131/85
[2019-06-22 16:00] VITALS: BP 125/78
[2019-06-22] MEDS ORDERED: USTEKINUMAB 520 MG in NS 146 ML IV ONE (16:00)
[2019-06-22] MEDS ORDERED: PRED20TA PO (16:32)
[2019-06-22 17:00] VITALS: BP 125/74
[2019-06-22 17:47] VITALS: BP 128/80
[2019-06-22 18:03] VITALS: BP 123/72
== END 2019-06-22 18:00 | disposition home or self-care (01) ==
LOC: M INFU 15:03
PROVIDERS: ATTEND Internal Medicine Gastroenterology
DX: K50.90 Crohn's disease, unspecified, without complications (principal); Z88.5 Allergy status to narcotic agent; Z88.6 Allergy status to analgesic agent
CPT/HCPCS: 96365; 96366; J3358

== ENCOUNTER → 2019-06-23 | Outpatient (CLI) | payer BC ==
[2019-06-23 17:12] LABS: BASO # 0.1 10^3/uL (0.0-0.2); BASO % 0.9 % (0.0-1.0); EOS # 0.1 10^3/uL (0.0-0.5); EOS % 0.6 % (0.0-3.0); HEMATOCRIT 44.5 % (42.0-52.0); HEMOGLOBIN 13.2 g/dl (13.5-17.5); LYMPH # 2.6 10^3/uL (1.5-5.0); LYMPH % 23.7 % (24.0-44.0); MEAN CORPUSCULAR HEMOGLOBIN 29.8 pg (27.0-33.0); MEAN CORPUSCULAR HGB CONC 29.7 g/dl (32.0-36.5); MEAN CORPUSCULAR VOLUME 100.5 fl (80.0-96.0); MONO # 0.7 10^3/uL (0.0-0.8); MONO % 6.1 % (0.0-5.0); NEUTROPHILS % 63.7 % (36.0-66.0); PLATELET COUNT, AUTOMATED 244 10^3/uL (150-450); RED BLOOD COUNT 4.43 10^6/uL (4.30-6.10); WHITE BLOOD COUNT 10.9 10^3/uL (4.0-10.0)
[2019-06-23 17:54] LABS: ALBUMIN 3.8 GM/DL (3.2-5.2); ALT/SGPT 129 U/L (12-78); BILIRUBIN,TOTAL 0.4 MG/DL (0.2-1.0); BLOOD UREA NITROGEN 19 MG/DL (7-18); CALCIUM LEVEL 8.6 MG/DL (8.5-10.1); CARBON DIOXIDE LEVEL 19 MEQ/L (21-32); CHLORIDE LEVEL 113 MEQ/L (98-107); CREATININE FOR GFR 0.86 MG/DL (0.70-1.30); GLOMERULAR FILTRATION RATE > 60.0 (>56); GLUCOSE, FASTING 105 MG/DL (70-100); IRON (FE) 131 UG/DL (65-175); PERCENT SATURATION 36.7 % (19.7-50.0); POTASSIUM SERUM 3.9 MEQ/L (3.5-5.1); SODIUM LEVEL 140 MEQ/L (136-145); TOTAL IRON BINDING CAPACITY 357 UG/DL (250-450); TOTAL PROTEIN 7.3 GM/DL (6.4-8.2); VITAMIN B12 LEVEL 1318 PG/ML (247-911)
== END ==
LOC: M LRY 11:17
PROVIDERS: ATTEND Internal Medicine Gastroenterology
DX: K50.818 Crohn's disease of both small and large intestine with other complication (principal); D64.9 Anemia, unspecified; D51.9 Vitamin B12 deficiency anemia, unspecified

== ENCOUNTER → 2019-07-01 | Outpatient (CLI) | payer BC ==
[2019-07-01 20:38] LABS: BLOOD UREA NITROGEN 26 MG/DL (7-18); CALCIUM LEVEL 8.2 MG/DL (8.5-10.1); CARBON DIOXIDE LEVEL 17 MEQ/L (21-32); CHLORIDE LEVEL 112 MEQ/L (98-107); GLOMERULAR FILTRATION RATE > 60.0 (>56); GLUCOSE, FASTING 98 MG/DL (70-100); MAGNESIUM LEVEL 1.9 MG/DL (1.8-2.4); PHOSPHORUS LEVEL 4.3 MG/DL (2.5-4.9); POTASSIUM SERUM 3.9 MEQ/L (3.5-5.1); SODIUM LEVEL 140 MEQ/L (136-145)
[2019-07-01 21:52] LABS: CLOSTRIDIUM DIFFICILE PCR NEGATIVE (NEGATIVE)
== END ==
LOC: M LRY 16:15
PROVIDERS: ATTEND Internal Medicine Gastroenterology
DX: K50.818 Crohn's disease of both small and large intestine with other complication (principal)

== ENCOUNTER → 2019-07-22 | Outpatient (REF) | payer BC ==
[2019-07-22 12:25] LABS: HEMATOCRIT 41.6 % (42.0-52.0); MEAN CORPUSCULAR HEMOGLOBIN 30.2 pg (27.0-33.0); MEAN CORPUSCULAR HGB CONC 31.3 g/dl (32.0-36.5); MEAN CORPUSCULAR VOLUME 96.5 fl (80.0-96.0); PLATELET COUNT, AUTOMATED 214 10^3/uL (150-450); RED BLOOD COUNT 4.31 10^6/uL (4.30-6.10); WHITE BLOOD COUNT 10.8 10^3/uL (4.0-10.0)
[2019-07-22 12:32] LABS: ALBUMIN 3.2 GM/DL (3.2-5.2); ALT/SGPT 71 U/L (12-78); BILIRUBIN,TOTAL 0.4 MG/DL (0.2-1.0); BLOOD UREA NITROGEN 16 MG/DL (7-18); CALCIUM LEVEL 8.6 MG/DL (8.5-10.1); CARBON DIOXIDE LEVEL 27 MEQ/L (21-32); CHLORIDE LEVEL 106 MEQ/L (98-107); CREATININE FOR GFR 0.66 MG/DL (0.70-1.30); GLOMERULAR FILTRATION RATE > 60.0 (>56); GLUCOSE, FASTING 75 MG/DL (70-100); POTASSIUM SERUM 4.2 MEQ/L (3.5-5.1); SODIUM LEVEL 139 MEQ/L (136-145); TOTAL PROTEIN 6.5 GM/DL (6.4-8.2)
[2019-07-22 12:52] LABS: FOLATE 12.3 NG/ML; PERCENT SATURATION 27.7 % (19.7-50.0); PREALBUMIN 46.9 MG/DL (20.0-40.0); TOTAL 25(OH) VITAMIN D 11.5 NG/ML (30.0-100.0)
[2019-07-22 13:09] LABS: LYMPHOCYTES 32 % (16-44); MONOCYTES 4 % (0-5); NEUTROPHILS 64 % (28-66)
[2019-07-22 13:10] LABS: PLATELET ESTIMATE NORMAL (NORMAL)
== END ==
LOC: M SFHCLERA 08:14
PROVIDERS: ATTEND Family Medicine
DX: K52.9 Noninfective gastroenteritis and colitis, unspecified (principal)

== ENCOUNTER 2019-07-30 12:52 | Outpatient (CLI) | payer BC ==
[~2019-07-30] VITALS: Ht 188 cm; Wt 94.0 kg
[2019-07-30 13:05] VITALS: BP 127/78
[2019-07-30] MEDS ORDERED: diphenhydrAMINE 25MG PO PRIOR TO INFUSION PO ONE (14:00)
[2019-07-30] MEDS ORDERED: ACETAMINOPHEN 650MG PO PRIOR TO INFUSION PO ONE (14:00)
[2019-07-30] MEDS ORDERED: NS 1,000 ML IV SCH (14:00)
[2019-07-30] MEDS ORDERED: INFLIXIMAB BIOSIMILAR 500 MG in NS 200 ML IV ONE (14:00)
[2019-07-30 16:35] VITALS: BP 130/86
== END 2019-07-30 16:35 | disposition home or self-care (01) ==
LOC: M INFU 12:52
PROVIDERS: ATTEND Internal Medicine Gastroenterology
DX: K50.00 Crohn's disease of small intestine without complications (principal); Z88.5 Allergy status to narcotic agent; Z88.6 Allergy status to analgesic agent
CPT/HCPCS: 96365; 96366; Q5103

== ENCOUNTER → 2019-08-06 | Outpatient (CLI) | payer BC ==
[2019-08-06 16:12] LABS: HEMATOCRIT 35.7 % (42.0-52.0); HEMOGLOBIN 11.1 g/dl (13.5-17.5); MEAN CORPUSCULAR HEMOGLOBIN 30.7 pg (27.0-33.0); MEAN CORPUSCULAR HGB CONC 31.1 g/dl (32.0-36.5); MEAN CORPUSCULAR VOLUME 98.6 fl (80.0-96.0); PLATELET COUNT, AUTOMATED 154 10^3/uL (150-450); RED BLOOD COUNT 3.62 10^6/uL (4.30-6.10); WHITE BLOOD COUNT 7.3 10^3/uL (4.0-10.0)
[2019-08-06 16:20] LABS: ALBUMIN 3.1 GM/DL (3.2-5.2); ALT/SGPT 41 U/L (12-78); BILIRUBIN,TOTAL 0.4 MG/DL (0.2-1.0); BLOOD UREA NITROGEN 22 MG/DL (7-18); C REACTIVE PROTEIN QUANTITATIV < 0.30 MG/DL (0.00-0.30); CALCIUM LEVEL 8.1 MG/DL (8.5-10.1); CARBON DIOXIDE LEVEL 27 MEQ/L (21-32); CHLORIDE LEVEL 111 MEQ/L (98-107); CREATININE FOR GFR 0.67 MG/DL (0.70-1.30); GLOMERULAR FILTRATION RATE > 60.0 (>56); GLUCOSE, FASTING 96 MG/DL (70-100); POTASSIUM SERUM 4.1 MEQ/L (3.5-5.1); SODIUM LEVEL 142 MEQ/L (136-145); TOTAL PROTEIN 6.1 GM/DL (6.4-8.2)
[2019-08-06 16:50] LABS: ERYTHROCYTE SEDIMENTATION RATE 26 mm/hr (0-20)
== END ==
LOC: M LRY 12:10
DX: K50.80 Crohn's disease of both small and large intestine without complications (principal)

== ENCOUNTER → 2019-08-21 | Outpatient (CLI) | payer BC ==
[2019-08-21 18:15] LABS: BASO % 0.4 % (0.0-1.0); EOS % 0.5 % (0.0-3.0); HEMATOCRIT 40.3 % (42.0-52.0); HEMOGLOBIN 12.4 g/dl (13.5-17.5); LYMPH # 2.3 10^3/uL (1.5-5.0); LYMPH % 26.8 % (24.0-44.0); MEAN CORPUSCULAR HEMOGLOBIN 30.2 pg (27.0-33.0); MEAN CORPUSCULAR HGB CONC 30.8 g/dl (32.0-36.5); MEAN CORPUSCULAR VOLUME 98.3 fl (80.0-96.0); MONO % 11.3 % (0.0-5.0); NEUTROPHILS # 5.2 10^3/uL (1.5-8.5); NEUTROPHILS % 60.5 % (36.0-66.0); PLATELET COUNT, AUTOMATED 293 10^3/uL (150-450); WHITE BLOOD COUNT 8.5 10^3/uL (4.0-10.0)
[2019-08-21 18:22] LABS: ALBUMIN 3.6 GM/DL (3.2-5.2); ALT/SGPT 39 U/L (12-78); BILIRUBIN,TOTAL 0.6 MG/DL (0.2-1.0); BLOOD UREA NITROGEN 20 MG/DL (7-18); CALCIUM LEVEL 8.5 MG/DL (8.5-10.1); CARBON DIOXIDE LEVEL 28 MEQ/L (21-32); CHLORIDE LEVEL 108 MEQ/L (98-107); CREATININE FOR GFR 0.87 MG/DL (0.70-1.30); GLOMERULAR FILTRATION RATE > 60.0 (>56); GLUCOSE, FASTING 95 MG/DL (70-100); POTASSIUM SERUM 4.6 MEQ/L (3.5-5.1); SODIUM LEVEL 142 MEQ/L (136-145); TOTAL PROTEIN 6.6 GM/DL (6.4-8.2)
== END ==
LOC: M LRY 11:57
PROVIDERS: ATTEND Internal Medicine Gastroenterology
DX: K50.818 Crohn's disease of both small and large intestine with other complication (principal)

== ENCOUNTER → 2019-08-25 | Outpatient (CLI) | payer BC ==
--- NOTE | 2019-08-25 10:52 | REP ---
ULTRASOUND ABDOMEN WITH DUPLEX DOPPLER EVALUATION OF PORTAL VASCULATURE: Real-time sonographic evaluation of the abdomen performed. Multiple gallstones are again seen in the gallbladder. There is no gallbladder wall thickening or pericholecystic fluid. No ascites is seen. There is no intrahepatic or extrahepatic biliary dilatation, common bile duct measuring 5 mm. Liver demonstrates diffuse heterogeneous increased echotexture compatible with diffuse fibrofatty infiltration. No gross liver or pancreatic mass is seen. The pancreas is not well seen due to overlying bowel gas. Spleen measures 11.0 x 11.0 x 5.3 cm. Although the length is within normal range, the splenic index is 641, which is above normal value of 480 suggesting mild splenomegaly. Kidneys are normal in size and echotexture, right kidney measuring 12.4 x 6.6 x 6.0 cm and left kidney 11.7 x 5.0 x 7.1 cm. There is no renal mass, hydronephrosis or nephrolithiasis. Abdominal aorta is normal in caliber with no aneurysm. Proximally the AP diameter is 2.0 cm and distally 1.5 cm. Duplex Doppler evaluation of the portal vasculature demonstrates normal direction of flow. Main portal vein measures 13 mm. Velocity is 29.4 cm/s. Patent splenic vein is noted with normal direction of flow. The superior mesenteric vein is not visualized. Peak systolic velocity of the main hepatic artery 58.5 cm/s, resistive index 0.61. Mid hepatic vein demonstrates patent flow. The right and left hepatic veins could not visualized. Study is limited due to patient body habitus. IMPRESSION: Multiple gallstones in the gallbladder. No gallbladder wall thickening or free fluid. Diffuse fibrofatty infiltration of the liver. Very mild splenomegaly. Normal direction of flow and portal vasculature. Patient flow in the middle hepatic vein. Right and left hepatic veins could not be visualized. Electronically Signed by Brandon De La Vega MD 08/25/2019 11:35 A
== END ==
LOC: M RAD 09:25
PROVIDERS: ATTEND Internal Medicine Gastroenterology
DX: R60.1 Generalized edema (principal); K50.818 Crohn's disease of both small and large intestine with other complication; R74.8 Abnormal levels of other serum enzymes; K80.20 Calculus of gallbladder without cholecystitis without obstruction

== ENCOUNTER → 2019-08-25 | Outpatient (CLI) | payer BC ==
[2019-08-25 20:00] LABS: APPEARANCE, URINE CLEAR (CLEAR); BACTERIA, URINE AUTO NEGATIVE (NEGATIVE); BILIRUBIN, URINE AUTO NEGATIVE (NEGATIVE); BLOOD, URINE BLOOD NEGATIVE (NEGATIVE); COLOR, URINE YELLOW (YELLOW); GLUCOSE, URINE (UA) AUTO NEGATIVE (NEGATIVE); KETONE, URINE AUTO TRACE mg/dL (NEGATIVE); LEUKOCYTE ESTERASE, URINE AUTO NEGATIVE (NEGATIVE); MUCUS, URINE SMALL (NEGATIVE); NITRITE, URINE AUTO NEGATIVE (NEGATIVE); PROTEIN, URINE AUTO NEGATIVE (NEGATIVE); RBC, URINE AUTO 0 /HPF (0-3); SPECIFIC GRAVITY URINE AUTO 1.019 (1.002-1.035); SQUAMOUS EPITHELIAL CELL UR AU 0 /HPF (0-6); UROBILINOGEN, URINE AUTO 0.2 mg/dL (0.0-2.0); WBC, URINE AUTO 1 /HPF (0-3)
== END ==
LOC: M LRY 17:20
PROVIDERS: ATTEND Internal Medicine Gastroenterology
DX: R60.1 Generalized edema (principal)

== ENCOUNTER 2019-08-27 11:20 | Outpatient (CLI) | payer BC ==
[~2019-08-27] VITALS: Ht 188 cm; Wt 94.0 kg
[2019-08-27] MEDS ORDERED: INFLIXIMAB BIOSIMILAR 500 MG in NS 200 ML IV ONE (11:30)
[2019-08-27] MEDS ORDERED: NS 1,000 ML IV SCH (12:00)
[2019-08-27] MEDS ORDERED: ACETAMINOPHEN 650MG ER TAB (TYLENOL ARTHRITIS) PO ONE (12:00)
[2019-08-27] MEDS ORDERED: diphenhydrAMINE 25MG CAP PO ONE (12:00)
== END 2019-08-27 14:22 | disposition home or self-care (01) ==
LOC: M INFU 11:20
PROVIDERS: ATTEND Internal Medicine Gastroenterology
DX: K50.90 Crohn's disease, unspecified, without complications (principal)
CPT/HCPCS: 96413; 96415; Q5103

== ENCOUNTER → 2019-09-06 | Outpatient (CLI) | payer BC ==
--- NOTE | 2019-09-07 06:14 | REP ---
Clinical: Bilateral lower extremity pain and swelling (left greater than right). History of prior pulmonary embolus. Technique: Real time sheth scale and color Doppler evaluation using linear high frequency transducer. Findings: Ultrasound examination of the bilateral lower extremities from the common femoral vein to the popliteal vein demonstrates normal compressibility, flow, and wave patterns in response to respiration and augmentation. There is no evidence for deep venous thrombosis. Impression: No deep venous thrombosis appreciated. Electronically Signed by Ramon Noyola MD 09/07/2019 06:06 A
== END ==
LOC: M LRY 14:55
PROVIDERS: ATTEND Internal Medicine Pulmonary Disease
DX: Z86.711 Personal history of pulmonary embolism (principal)

== ENCOUNTER 2019-10-15 10:00 | Outpatient (RCR) | payer BC | END 2019-10-17 | LOC: M PT 10:00 | PROVIDERS: ATTEND Family Medicine | DX: Z51.89 Encounter for other specified aftercare (principal); M79.89 Other specified soft tissue disorders ==

== ENCOUNTER 2019-10-22 11:13 | Outpatient (CLI) | payer BC ==
[~2019-10-22] VITALS: Ht 188 cm; Wt 94.0 kg
[2019-10-22] VITALS (12 sets, daily range): BP systolic 119–140; BP diastolic 60–78
[2019-10-22] MEDS ORDERED: ACETAMINOPHEN 650MG PO PRIOR TO INFUSION PO ONE (11:45)
[2019-10-22] MEDS ORDERED: INFLIXIMAB BIOSIMILAR 500 MG in NS 200 ML IV ONE (11:45)
[2019-10-22] MEDS ORDERED: diphenhydrAMINE 25MG PO PRIOR TO INFUSION PO ONE (11:45)
[2019-10-22] MEDS ORDERED: NS 1,000 ML IV SCH (11:45)
== END 2019-10-22 16:00 | disposition home or self-care (01) ==
LOC: M INFU 11:13
PROVIDERS: ATTEND Internal Medicine Gastroenterology
DX: K50.90 Crohn's disease, unspecified, without complications (principal); Z88.5 Allergy status to narcotic agent; Z88.8 Allergy status to other drugs, medicaments and biological substances
CPT/HCPCS: 96413; 96415; Q5103

== ENCOUNTER → 2019-10-27 | Outpatient (CLI) | payer BC ==
[2019-10-27 16:12] LABS: BACTERIA, URINE AUTO NEGATIVE (NEGATIVE); BILIRUBIN, URINE AUTO NEGATIVE (NEGATIVE); BLOOD, URINE BLOOD NEGATIVE (NEGATIVE); COLOR, URINE STRAW (YELLOW); GLUCOSE, URINE (UA) AUTO NEGATIVE (NEGATIVE); KETONE, URINE AUTO NEGATIVE (NEGATIVE); LEUKOCYTE ESTERASE, URINE AUTO NEGATIVE (NEGATIVE); NITRITE, URINE AUTO NEGATIVE (NEGATIVE); PROTEIN, URINE AUTO NEGATIVE (NEGATIVE); RBC, URINE AUTO 0 /HPF (0-3); SQUAMOUS EPITHELIAL CELL UR AU 0 /HPF (0-6); UROBILINOGEN, URINE AUTO 0.2 mg/dL (0.0-2.0); WBC, URINE AUTO 0 /HPF (0-3)
[2019-10-27 16:24] LABS: ALT/SGPT 61 U/L (12-78); BILIRUBIN,TOTAL 0.6 MG/DL (0.2-1.0); BLOOD UREA NITROGEN 21 MG/DL (7-18); CALCIUM LEVEL 9.1 MG/DL (8.5-10.1); CARBON DIOXIDE LEVEL 25 MEQ/L (21-32); CHLORIDE LEVEL 108 MEQ/L (98-107); CREATININE FOR GFR 0.91 MG/DL (0.70-1.30); GLOMERULAR FILTRATION RATE > 60.0 (>56); MAGNESIUM LEVEL 2.1 MG/DL (1.8-2.4); POTASSIUM SERUM 4.5 MEQ/L (3.5-5.1); SODIUM LEVEL 139 MEQ/L (136-145); TOTAL PROTEIN 7.2 GM/DL (6.4-8.2)
[2019-10-29 06:44] LABS: APPEARANCE, URINE CLEAR (CLEAR); GLUCOSE, FASTING 96 MG/DL (70-100)
== END ==
LOC: M LRY 12:31
PROVIDERS: ATTEND Internal Medicine Nephrology
DX: K76.0 Fatty (change of) liver, not elsewhere classified (principal); R60.1 Generalized edema

== ENCOUNTER 2019-11-15 13:30 | Outpatient (RCR) | payer BC | END 2019-11-16 | LOC: M PT 13:30 | PROVIDERS: ATTEND Family Medicine | DX: Z51.89 Encounter for other specified aftercare (principal); M79.89 Other specified soft tissue disorders ==

== ENCOUNTER 2019-11-18 15:27 | Outpatient (RCR) | payer BC ==
[~2019-11-18 15:27] MED LIST changes: +PANT40TA29 PO; -PANT40TA3 PO
== END 2019-12-17 ==
LOC: M PT 15:27
PROVIDERS: ATTEND Family Medicine
DX: M79.89 Other specified soft tissue disorders (principal)

== ENCOUNTER → 2019-12-15 | Outpatient (REF) | payer BC ==
[2020-01-10 14:24] LABS: BASO # 0.1 10^3/uL (0.0-0.2); EOS # 0.1 10^3/uL (0.0-0.5); EOS % 2.2 % (0.0-3.0); HEMATOCRIT 45.3 % (42.0-52.0); HEMOGLOBIN 14.8 g/dl (13.5-17.5); LYMPH # 1.9 10^3/uL (1.5-5.0); LYMPH % 39.4 % (24.0-44.0); MEAN CORPUSCULAR HEMOGLOBIN 29.1 pg (27.0-33.0); MEAN CORPUSCULAR HGB CONC 32.7 g/dl (32.0-36.5); MEAN CORPUSCULAR VOLUME 89.2 fl (80.0-96.0); MONO # 0.5 10^3/uL (0.0-0.8); MONO % 10.4 % (0.0-5.0); NEUTROPHILS # 2.3 10^3/uL (1.5-8.5); NEUTROPHILS % 46.8 % (36.0-66.0); PLATELET COUNT, AUTOMATED 203 10^3/uL (150-450); RED BLOOD COUNT 5.08 10^6/uL (4.30-6.10); WHITE BLOOD COUNT 4.9 10^3/uL (4.0-10.0)
[2020-02-02 14:38] LABS: ALT/SGPT 59 U/L (12-78); BILIRUBIN,TOTAL 0.6 MG/DL (0.2-1.0); BLOOD UREA NITROGEN 23 MG/DL (7-18); CALCIUM LEVEL 8.9 MG/DL (8.5-10.1); CARBON DIOXIDE LEVEL 26 MEQ/L (21-32); CHLORIDE LEVEL 107 MEQ/L (98-107); CREATININE FOR GFR 0.93 MG/DL (0.70-1.30); GLOMERULAR FILTRATION RATE > 60.0 (>56); GLUCOSE, FASTING 101 MG/DL (70-100); HEPATITIS B SURFACE ANTIGEN NEGATIVE (NEGATIVE); POTASSIUM SERUM 4.3 MEQ/L (3.5-5.1); SODIUM LEVEL 140 MEQ/L (136-145); TOTAL PROTEIN 7.1 GM/DL (6.4-8.2)
== END ==
LOC: M LABSMT 15:21
PROVIDERS: ATTEND Internal Medicine Gastroenterology
DX: K50.818 Crohn's disease of both small and large intestine with other complication (principal)

== ENCOUNTER 2019-12-17 11:30 | Outpatient (CLI) | payer BC ==
[2019-12-17] MEDS ORDERED: inFLIXimab-DYYB 100MG 10ML VIAL (INFLECTRA-PFIZER) ONE (11:31)
[2019-12-17] MEDS ORDERED: diphenhydrAMINE 25MG CAP As Ordered ONE (11:33)
[2019-12-17] MEDS ORDERED: ACETAMINOPHEN TAB 650MG DOSE (2X325MG) As Ordered ONE (11:37)
== END 2019-12-17 14:35 | disposition home or self-care (01) ==
LOC: M INFU 11:30
PROVIDERS: ATTEND Internal Medicine Gastroenterology
DX: K50.90 Crohn's disease, unspecified, without complications (principal)
CPT/HCPCS: 96413; 96415; Q5103

== ENCOUNTER 2020-02-11 11:22 | Outpatient (CLI) | payer BC ==
[2020-02-11] VITALS (10 sets, daily range): BP systolic 107–126; BP diastolic 55–69
[~2020-02-11] VITALS: Ht 190.5 cm; Wt 123.0 kg
[2020-02-11] MEDS ORDERED: NS 1,000 ML IV SCH (11:30)
[2020-02-11] MEDS ORDERED: diphenhydrAMINE 25MG PO PRIOR TO INFUSION PO ONE (11:30)
[2020-02-11] MEDS ORDERED: ACETAMINOPHEN 650MG PO PRIOR TO INFUSION PO ONE (11:30)
[2020-02-11] MEDS ORDERED: INFLIXIMAB BIOSIMILAR 700 MG in NS 180 ML IV ONE (11:30)
== END 2020-02-11 16:45 | disposition home or self-care (01) ==
LOC: M INFU 11:22
PROVIDERS: ATTEND Internal Medicine Gastroenterology
DX: K50.90 Crohn's disease, unspecified, without complications (principal)
CPT/HCPCS: 96413; 96415; Q5103

== ENCOUNTER → 2020-02-25 | Outpatient (REF) | payer BC ==
[2020-02-25 18:35] LABS: FREE T4 1.06 NG/DL (0.76-1.46); THYROID STIMULATING HORMONE 1.25 uIU/ML (0.358-3.740)
== END ==
LOC: M LAB REF 16:50
PROVIDERS: ATTEND Internal Medicine Nephrology
DX: E03.9 Hypothyroidism, unspecified (principal)

== ENCOUNTER 2020-04-07 11:21 | Outpatient (CLI) | payer BC ==
[2020-04-07] VITALS (7 sets, daily range): BP systolic 118–136; BP diastolic 61–77
[~2020-04-07] VITALS: Ht 190.5 cm; Wt 123.0 kg
[2020-04-07] MEDS ORDERED: INFLIXIMAB BIOSIMILAR 700 MG in NS 180 ML IV ONE (11:30)
[2020-04-07] MEDS ORDERED: ACETAMINOPHEN 650MG PO PRIOR TO INFUSION PO ONE (11:30)
[2020-04-07] MEDS ORDERED: diphenhydrAMINE 25MG PO PRIOR TO INFUSION PO ONE (11:30)
[2020-04-07] MEDS ORDERED: NS 1,000 ML IV SCH (11:30)
== END 2020-04-07 14:30 | disposition home or self-care (01) ==
LOC: M INFU 11:21
PROVIDERS: ATTEND Internal Medicine Gastroenterology
DX: K50.90 Crohn's disease, unspecified, without complications (principal); Z88.6 Allergy status to analgesic agent
CPT/HCPCS: 96365; 96366; Q5103

== ENCOUNTER → 2020-05-30 | Outpatient (CLI) | payer BC ==
[2020-05-30 13:04] LABS: BASO # 0.1 10^3/uL (0.0-0.2); BASO % 0.8 % (0.0-1.0); EOS # 0.4 10^3/uL (0.0-0.5); EOS % 5.6 % (0.0-3.0); HEMATOCRIT 43.7 % (42.0-52.0); HEMOGLOBIN 14.4 g/dl (13.5-17.5); LYMPH # 2.9 10^3/uL (1.5-5.0); MEAN CORPUSCULAR HEMOGLOBIN 29.8 pg (27.0-33.0); MEAN CORPUSCULAR VOLUME 90.5 fl (80.0-96.0); MONO # 0.7 10^3/uL (0.0-0.8); MONO % 9.6 % (0.0-5.0); NEUTROPHILS % 42.7 % (36.0-66.0); PLATELET COUNT, AUTOMATED 212 10^3/uL (150-450); RED BLOOD COUNT 4.83 10^6/uL (4.30-6.10); WHITE BLOOD COUNT 7.1 10^3/uL (4.0-10.0)
[2020-05-30 15:16] LABS: BLOOD UREA NITROGEN 21 MG/DL (7-18); CREATININE FOR GFR 0.95 MG/DL (0.70-1.30); GLUCOSE, FASTING 118 MG/DL (70-100)
[2020-05-30 15:17] LABS: ALBUMIN 4.1 GM/DL (3.2-5.2); ALT/SGPT 46 U/L (12-78); BILIRUBIN,TOTAL 0.5 MG/DL (0.2-1.0); CALCIUM LEVEL 8.9 MG/DL (8.5-10.1); CARBON DIOXIDE LEVEL 25 MEQ/L (21-32); CHLORIDE LEVEL 106 MEQ/L (98-107); GLOMERULAR FILTRATION RATE > 60.0 (>56); SODIUM LEVEL 140 MEQ/L (136-145); TOTAL PROTEIN 6.9 GM/DL (6.4-8.2)
[2020-05-30 15:19] LABS: VITAMIN B12 LEVEL 577 PG/ML (247-911)
== END ==
LOC: M LAB 12:08
PROVIDERS: ATTEND Internal Medicine Gastroenterology
DX: K50.818 Crohn's disease of both small and large intestine with other complication (principal)

== ENCOUNTER 2020-06-02 11:24 | Outpatient (CLI) | payer BC ==
[~2020-06-02] VITALS: Ht 190.5 cm; Wt 123.0 kg
[2020-06-02 11:30] VITALS: BP 137/76
[2020-06-02] MEDS ORDERED: INFLIXIMAB BIOSIMILAR 700 MG in NS 180 ML IV ONE (11:30)
[2020-06-02] MEDS ORDERED: ACETAMINOPHEN 650MG PO PRIOR TO INFUSION PO ONE (11:30)
[2020-06-02] MEDS ORDERED: NS 1,000 ML IV SCH (11:30)
[2020-06-02] MEDS ORDERED: diphenhydrAMINE 25MG PO PRIOR TO INFUSION PO ONE (11:30)
[2020-06-02 12:30] VITALS: BP 119/66
[2020-06-02 12:45] VITALS: BP 122/70
[2020-06-02 13:45] VITALS: BP 143/68
[2020-06-02 15:00] VITALS: BP 136/61
[2020-06-02 16:45] VITALS: BP 124/73
== END 2020-06-02 16:45 | disposition home or self-care (01) ==
LOC: M INFU 11:24
PROVIDERS: ATTEND Internal Medicine Gastroenterology
DX: K50.90 Crohn's disease, unspecified, without complications (principal); Z88.6 Allergy status to analgesic agent
CPT/HCPCS: 96365; 96366; Q5103

== ENCOUNTER → 2020-06-02 | Outpatient (REF) | payer BC | LOC: M LAB REF 12:04 | PROVIDERS: ATTEND Internal Medicine Gastroenterology | DX: K50.818 Crohn's disease of both small and large intestine with other complication (principal) ==

== ENCOUNTER 2020-07-14 11:30 | Outpatient (CLI) | payer BC ==
[~2020-07-14] VITALS: Ht 190.5 cm; Wt 132.0 kg
[~2020-07-14 11:30] MED LIST changes: +ACETAMINOPHEN 650MG PO PRIOR TO INFUSION PO ONE; +INFLIXIMAB BIOSIMILAR 700 MG in NS 180 ML IV ONE; +NS 1,000 ML IV SCH; +diphenhydrAMINE 25MG PO PRIOR TO INFUSION PO ONE
[2020-07-14 11:40] VITALS: BP 140/68
[2020-07-14 12:45] VITALS: BP 128/74
[2020-07-14 13:00] VITALS: BP 125/56
[2020-07-14 13:30] VITALS: BP 120/63
[2020-07-14 15:35] VITALS: BP 139/74
== END 2020-07-14 15:40 | disposition home or self-care (01) ==
LOC: M INFU 11:30
PROVIDERS: ATTEND Internal Medicine Gastroenterology
DX: K50.90 Crohn's disease, unspecified, without complications (principal); Z88.6 Allergy status to analgesic agent
CPT/HCPCS: 96365; 96366; Q5103

== ENCOUNTER 2020-08-25 11:31 | Outpatient (CLI) | payer BC ==
[~2020-08-25] VITALS: Ht 190.5 cm; Wt 132.0 kg
[2020-08-25] MEDS: NS 1,000 ML IV SCH ×2 (11:30→12:15)
[~2020-08-25 11:31] MED LIST changes: +FERR324T21 PO; -FERR325T16 PO; -NS 1,000 ML IV SCH; +diphenhydrAMINE 25MG CAP PO ONE; -diphenhydrAMINE 25MG PO PRIOR TO INFUSION PO ONE
[2020-08-25 11:43] VITALS: BP 142/84
[2020-08-25 11:58] VITALS: BP 142/84
[2020-08-25 15:45] VITALS: BP 126/70
== END 2020-08-25 15:45 | disposition home or self-care (01) ==
LOC: M INFU 11:31
PROVIDERS: ATTEND Internal Medicine Gastroenterology
DX: K50.90 Crohn's disease, unspecified, without complications (principal); Z88.6 Allergy status to analgesic agent; Z88.8 Allergy status to other drugs, medicaments and biological substances
CPT/HCPCS: 96365; 96366; Q5103

== ENCOUNTER 2020-10-06 11:04 | Outpatient (CLI) | payer BC ==
[~2020-10-06] VITALS: Ht 190.5 cm; Wt 132.0 kg
[~2020-10-06 11:04] MED LIST changes: -CYCL-707 PO; -FURO40TA2; -INFL10VL IV; -SPIR-10
[2020-10-06] MEDS ORDERED: INFLIXIMAB BIOSIMILAR 700 MG in NS 180 ML IV ONE (11:30)
[2020-10-06] MEDS ORDERED: NS 1,000 ML IV SCH (11:30)
[2020-10-06] MEDS ORDERED: ACETAMINOPHEN 650MG PO PRIOR TO INFUSION PO ONE (11:30)
[2020-10-06] MEDS ORDERED: diphenhydrAMINE 25MG PO PRIOR TO INFUSION PO ONE (11:30)
[2020-10-06 12:00] VITALS: BP 143/86
[2020-10-06 12:15] VITALS: BP 132/72
[2020-10-06 12:30] VITALS: BP 137/78
[2020-10-06 13:00] VITALS: BP 128/75
[2020-10-06 13:30] VITALS: BP 131/62
[2020-10-06 14:45] VITALS: BP 132/68
== END 2020-10-06 15:20 | disposition home or self-care (01) ==
LOC: M INFU 11:04
PROVIDERS: ATTEND Internal Medicine Gastroenterology
DX: K50.90 Crohn's disease, unspecified, without complications (principal); Z88.6 Allergy status to analgesic agent
CPT/HCPCS: 96365; 96366; Q5103

== ENCOUNTER → 2020-10-06 | Outpatient (CLI) | payer BC ==
[~2020-10-06] MED LIST changes: -ACETAMINOPHEN 650MG PO PRIOR TO INFUSION PO ONE; +CYCL-707 PO; +FURO40TA2; +INFL10VL IV; -INFLIXIMAB BIOSIMILAR 700 MG in NS 180 ML IV ONE; +SPIR-10; -diphenhydrAMINE 25MG CAP PO ONE
[2020-10-06 12:38] LABS: BASO # 0.1 10^3/uL (0.0-0.2); BASO % 0.9 % (0.0-1.0); EOS # 0.2 10^3/uL (0.0-0.5); HEMATOCRIT 47.8 % (42.0-52.0); LYMPH # 2.7 10^3/uL (1.5-5.0); LYMPH % 42.1 % (24.0-44.0); MEAN CORPUSCULAR HGB CONC 33.5 g/dl (32.0-36.5); MEAN CORPUSCULAR VOLUME 89.7 fl (80.0-96.0); MONO # 0.6 10^3/uL (0.0-0.8); MONO % 9.8 % (2.0-8.0); NEUTROPHILS # 2.8 10^3/uL (1.5-8.5); PLATELET COUNT, AUTOMATED 211 10^3/uL (150-450); RED BLOOD COUNT 5.33 10^6/uL (4.30-6.10); WHITE BLOOD COUNT 6.4 10^3/uL (4.0-10.0)
[2020-10-06 12:55] LABS: HEMOGLOBIN A1c 5.6 %
[2020-10-06 13:11] LABS: ALBUMIN 4.2 GM/DL (3.2-5.2); ALT/SGPT 48 U/L (12-78); BILIRUBIN,TOTAL 0.8 MG/DL (0.2-1.0); BLOOD UREA NITROGEN 17 MG/DL (7-18); CALCIUM LEVEL 9.5 MG/DL (8.5-10.1); CARBON DIOXIDE LEVEL 27 MEQ/L (21-32); CHLORIDE LEVEL 106 MEQ/L (98-107); CHOLESTEROL LEVEL 135 MG/DL (<200); CREATININE FOR GFR 0.98 MG/DL (0.70-1.30); FERRITIN 92 NG/ML (26-388); GLOMERULAR FILTRATION RATE > 60.0 (>56); GLUCOSE, FASTING 85 MG/DL (70-100); HDL CHOLESTEROL 36 MG/DL (>40); LDL CHOLESTEROL 67 MG/DL (<100); NON-HDL-C 99 MG/DL; SODIUM LEVEL 139 MEQ/L (136-145); TOTAL PROTEIN 7.3 GM/DL (6.4-8.2); TRIGLYCERIDES LEVEL 160 MG/DL (<150)
[2020-10-06 13:17] LABS: TOTAL 25(OH) VITAMIN D 24.9 NG/ML (30.0-100.0); VITAMIN B12 LEVEL 442 PG/ML (247-911)
== END ==
LOC: M LAB 11:01
PROVIDERS: ATTEND Nurse Practitioner Family
DX: K50.80 Crohn's disease of both small and large intestine without complications (principal)

== ENCOUNTER 2020-10-09 11:50 | Emergency (ER) | payer BC ==
[~2020-10-09] VITALS: Ht 190.5 cm; Wt 129.6 kg
[2020-10-09] MEDS ORDERED: FURO40TA2 (13:07)
[2020-10-09] MEDS ORDERED: SPIR-10 (13:07)
[2020-10-09] MEDS ORDERED: INFL10VL IV (13:09)
[2020-10-09] MEDS ORDERED: KETOROLAC 60MG 2ML VIAL IM ONE (14:15)
--- NOTE | 2020-10-09 14:40 | REP ---
INDICATION: right hip pain. COMPARISON: Comparison radiograph December 05, 2018.. TECHNIQUE: AP and frogleg views of the right hip were obtained AP view of the pelvis is provided. FINDINGS: The bony pelvic ring is intact. There is mild superior hip joint space narrowing bilaterally. Spur formation and sclerosis are present in the left hip and to a lesser extent the right hip unchanged. Femoral head is smooth and rounded. Periarticular soft tissues are unremarkable. Sacrum and SI joints and symphysis pubis are intact. IMPRESSION: Mild bilateral hip joint osteoarthritis. No acute bony abnormality. <Electronically signed by Julio César Rao > 10/09/20 [id number]
--- NOTE | 2020-10-09 14:42 | REP ---
INDICATION: LBP with leg pain, r/o bony abn. COMPARISON: Comparison radiographs October 22, 2018.. TECHNIQUE: Five views of the lumbar spine are provided. FINDINGS: There is a minimal levoconvex lumbar curvature. Lumbar vertebral body heights are preserved. Alignment is normal on lateral radiograph. There is mild degenerative disc disease with discogenic spurring diffusely. There is no evidence of spondylolysis or spondylolisthesis. No fracture or collapse is seen. There is mild osteoarthritic facet hypertrophy bilaterally at L5-S1. Psoas margins are symmetric. Sacrum and SI joints are intact. No bony destructive lesion is seen. Visualized bowel gas pattern is unremarkable. IMPRESSION: Mild diffuse degenerative spondylosis changes essentially unchanged from October 22, 2018. No acute bony abnormality. <Electronically signed by Julio César Rao > 10/09/20 [id number]
--- NOTE | 2020-10-09 14:43 | REP ---
INDICATION: right knee pain. COMPARISON: None. TECHNIQUE: Five views of the right knee are provided. FINDINGS: Five views of the right knee demonstrate non articular spurring at the superior inferior pole of patella which may reflect patellar and quadriceps tendinopathy. Joint spaces are preserved. There is mild osteoarthritic spurring at the lateral pole of the patella on sunrise view.. No fracture or subluxation is seen. No opaque foreign body noted. IMPRESSION: Articular and non articular spurring of the patella. No acute bony abnormality.. <Electronically signed by Julio César Rao > 10/09/20 [id number]
[2020-10-09] MEDS ORDERED: CYCL-707 PO (14:50)
[2020-10-09] MEDS ORDERED: PRED20TA PO (14:50)
[2020-10-09 15:27] VITALS: BP 123/78
== END 2020-10-09 15:40 | disposition home or self-care (01) ==
LOC: M ED 11:50
DX: M51.37 Other intervertebral disc degeneration, lumbosacral region (principal); M16.0 Bilateral primary osteoarthritis of hip; M17.11 Unilateral primary osteoarthritis, right knee; M25.761 Osteophyte, right knee; Z88.8 Allergy status to other drugs, medicaments and biological substances; Z79.899 Other long term (current) drug therapy
CPT/HCPCS: 72110; 73502; 73564; 96372; 99283; J1885

== ENCOUNTER → 2020-10-17 | Outpatient (CLI) | payer BC ==
[~2020-10-17] MED LIST changes: +CYCL-707 PO; +FURO40TA2; +INFL10VL IV; +SPIR-10
--- NOTE | 2020-10-17 11:45 | REP ---
INDICATION: PAIN. COMPARISON: None. TECHNIQUE: Single AP weightbearing view of the right and left knee FINDINGS: The joint spaces are relatively age-appropriate and symmetric. Very minimal medial joint space narrowing cannot be excluded and should be correlated with patient's symptoms. IMPRESSION: Essentially age-appropriate examination. As above. <Electronically signed by Ramon Noyola > 10/17/20 [id number]
== END ==
LOC: M SOG 11:18
PROVIDERS: ATTEND Orthopaedic Surgery Adult Reconstructive Orthopaedic Surgery
DX: M25.561 Pain in right knee (principal)

== ENCOUNTER 2020-11-17 11:12 | Outpatient (CLI) | payer BC ==
[~2020-11-17] VITALS: Ht 190.5 cm; Wt 129.5 kg
[2020-11-17] VITALS (9 sets, daily range): BP systolic 103–131; BP diastolic 57–70
[~2020-11-17 11:12] MED LIST changes: +ERGO500029 PO; -VITA50005 PO
[2020-11-17] MEDS ORDERED: INFLIXIMAB BIOSIMILAR 700 MG in NS 180 ML IV ONE (11:30)
[2020-11-17] MEDS ORDERED: NS 1,000 ML IV SCH (11:30)
[2020-11-17] MEDS ORDERED: ACETAMINOPHEN 650MG PO PRIOR TO INFUSION PO ONE (11:30)
[2020-11-17] MEDS ORDERED: diphenhydrAMINE 25MG PO PRIOR TO INFUSION PO ONE (11:30)
== END 2020-11-17 14:45 | disposition home or self-care (01) ==
LOC: M INFU 11:12
PROVIDERS: ATTEND Internal Medicine Gastroenterology
DX: K50.90 Crohn's disease, unspecified, without complications (principal); Z88.6 Allergy status to analgesic agent
CPT/HCPCS: 96365; 96366; Q5103

== ENCOUNTER 2020-12-29 10:59 | Outpatient (CLI) | payer BC ==
[~2020-12-29] VITALS: Ht 190.5 cm; Wt 132.0 kg
[2020-12-29] VITALS (7 sets, daily range): BP systolic 132–165; BP diastolic 66–90
[2020-12-29] MEDS ORDERED: INFLIXIMAB BIOSIMILAR 700 MG in NS 180 ML IV ONE (11:30)
[2020-12-29] MEDS ORDERED: diphenhydrAMINE 25MG PO PRIOR TO INFUSION PO ONE (11:30)
[2020-12-29] MEDS ORDERED: ACETAMINOPHEN 650MG PO PRIOR TO INFUSION PO ONE (11:30)
[2020-12-29] MEDS ORDERED: NS 1,000 ML IV SCH (11:30)
== END 2020-12-29 14:30 | disposition home or self-care (01) ==
LOC: M INFU 10:59
PROVIDERS: ATTEND Internal Medicine Gastroenterology
DX: K50.90 Crohn's disease, unspecified, without complications (principal); Z88.8 Allergy status to other drugs, medicaments and biological substances; Z88.6 Allergy status to analgesic agent
CPT/HCPCS: 96365; 96366; Q5103

== ENCOUNTER → 2021-01-23 | Outpatient (CLI) | payer BC | LOC: M LAB 09:28 | PROVIDERS: ATTEND Internal Medicine Gastroenterology | DX: K50.80 Crohn's disease of both small and large intestine without complications (principal) ==

== ENCOUNTER 2021-02-09 08:56 | Outpatient (CLI) | payer BC ==
[~2021-02-09] VITALS: Ht 190.5 cm; Wt 132.0 kg
[2021-02-09 09:00] VITALS: BP 130/85
[2021-02-09] MEDS ORDERED: INFLIXIMAB BIOSIMILAR 700 MG in NS 180 ML IV ONE (09:00)
[2021-02-09] MEDS ORDERED: diphenhydrAMINE 25MG PO PRIOR TO INFUSION PO ONE (09:00)
[2021-02-09] MEDS ORDERED: ACETAMINOPHEN 650MG PO PRIOR TO INFUSION PO ONE (09:00)
[2021-02-09] MEDS ORDERED: NS 1,000 ML IV SCH (09:00)
[2021-02-09 09:38] VITALS: BP 130/85
[2021-02-09 10:30] VITALS: BP 122/69
[2021-02-09 11:00] VITALS: BP 131/74
[2021-02-09 11:30] VITALS: BP 131/76
[2021-02-09 12:50] VITALS: BP 125/67
== END 2021-02-09 12:50 | disposition home or self-care (01) ==
LOC: M INFU 08:56
PROVIDERS: ATTEND Internal Medicine Gastroenterology
DX: K50.90 Crohn's disease, unspecified, without complications (principal); Z88.6 Allergy status to analgesic agent
CPT/HCPCS: 96365; 96366; Q5103

== ENCOUNTER → 2021-02-27 | Outpatient (REF) | payer BC | LOC: M LAB REF 13:41 | PROVIDERS: ATTEND Internal Medicine Nephrology | DX: R60.1 Generalized edema (principal); E83.42 Hypomagnesemia ==

== ENCOUNTER 2021-03-11 00:55 | Emergency (ER) | payer BC ==
[~2021-03-11] VITALS: Ht 190.5 cm; Wt 132.0 kg
[~2021-03-11 00:55] MED LIST changes: -IBUP200T45 PO; +IBUP200T46 PO
--- OUTSIDE RECORDS SUMMARY | 2021-03-11 00:59 | CCD ---
Author Author [facility] Organization [facility] Address Unknown Phone Unavailable Care Team Providers Care Facilities Operations Technician Name Role Phone Caitlin Cao Unavailable PROBLEMS Type Condition ICD9-CM Code WOW13-GY Code Onset Dates Condition S tatus W/U Status Risk SNOMED Code Notes Problem Spondylosis of lumbar region without myelopathy or radiculopathy M47.816 Active confirmed 29516825 Problem Osteoarthritis of left hip, unspecified osteoarthritis typ e M16.12 Active confirmed 600504766306574 Problem IBD (inflammatory bowel disease) K52.9 Active conf irmed 27253831 Problem Osteoarthritis of cervical s pine, unspecified spinal osteoarthritis complication status M47.812 Active confirmed 421353209 Problem Anemia, unspecified type D64.9 Active confirmed 173394906 Problem Low serum potassium E87.6 Active confirmed 712501348 Problem On prednisone therapy Z79.52 Active confirmed 239862754 Problem Exacerbation of asthma, unsp ecified asthma severity, unspecified whether persistent J45.901 Active confirmed 987257385 Problem Hypoalbuminemia E88.09 Active confirmed 1192 33412 Problem Acute gout involving toe of right foot, unspecified cause M10.9 Active confirmed 597453064 Problem Immunosuppressed status D89.9 Active confirmed 78117223 Problem Bilateral lower extremity edema R60.0 Active confi rmed 494742504 Problem Other chronic pulmonary embolism without acute cor pulmona le I27.82 Active confirmed 444935735974268 Problem Pedal edema R60.0 Active confirmed 66967305 9 Problem B12 deficiency E53.8 Active confirmed 88154 4004 Problem Crohn''s disease of both small and large intestine without complication K50.80 Active confirmed 55288555 Problem Encounter for immunization Z23 Active confirmed 069682963 Problem Thrombocytopenia D69.6 Active confirmed 415 988671 Problem Weakness R53.1 Active confirmed 48388724 Problem Psoriatic arthritis L40.50 Active confirmed 186211010 Problem Crohn''s disease of large intestine without complication K50.10 Active confirmed 8319033 Problem Vitamin D deficiency E55.9 Active confirmed 62986034 Problem Clostridium difficile colitis A04.72 Active confirm ed 612346313 Problem Hepatic steatosis K76.0 Active confirmed 19 2417559 ALLERGIES Allergen (clinical drug ingredient) Drug/Non Drug Allergy do cumented on EMR Reaction Allergy Type Onset Date Status Codeine Phosphate([facility] Code:[address]-73) hallucinations D rug Allergy Active EPINEPHrine SVTs Drug Allergy Active ENCOUNTERS from 1968 to 2021-02-26 Encounter Location Date Provider Diagnosis [place] [address] [facility] [phone] [place] [address] 11 Feb, 2021 Caitlin Kiley Encounter for immunization Z 23 IMMUNIZATIONS Vaccine Route Administration Date Status Influenza 18 yrs & older Flublok IM Intramuscular Mar 15, 2019 Administered Hepatitis B 0.5mL HEPLISAV-B IM Intramuscular Jan 29, 2021 Ad ministered Hepatitis A Adult 1.0mL Havrix IM Intramuscular Feb 26, 2021 Administered Hepatitis A Adult 1.0mL Havrix IM Intramuscular Jan 29, 2021 Administered Pneumococcal Adult 0.5mL Pneumovax 23 IM Intramuscular Jun 09 020 Administered TDAP 0.5mL (Boostrix) IM Intramuscular Jun 03, 2019 Administe red Influenza Pharmacy Given IM Intramuscular Feb 25, 2020 Admini stered Pneumococcal 0.5mL Prevnar 13 IM Intramuscular Mar 15, 2019 A dministered Influenza 6mo & up Fluzone IM Intramuscular Apr 20, 2017 Admi nistered Influenza 6mo & up Fluzone Unknown August 30, 2016 Other s SOCIAL HISTORY Tobacco Use: Social History Observation Description Date Details (start date - stop date) Former Smoker Sex Assigned At : Social History Observation Description Sex Assigned At Unknown Education: Question Answer Notes Level of Education: College Audit Question Answer Notes Total Score: 4 Interpretation: Alcohol Education Language: Question Answer Notes Languages spoken: [place] Cheondoism: Question Answer Notes Cheondoism 07 Anabaptism Sexual Hx: Question Answer Notes Had sex in the last 12 months (vaginal, oral, or anal)? Yes Have you ever had an STD? No with Women only Use protection? No Drug and Alcohol Question Answer Notes Total Score: 0 Interpretation: No problems reported Alcohol Screening: Question Answer Notes Did you have a drink containing alcohol in the past year? Ye s Points 4 Interpretation Positive How many drinks did you have on a typica l day when you were drinking in the past year? 3 or 4 (1 point) How often did you have a drink containing alcohol in t he past year? Two to three times per week (3 points) Tobacco Use: Question Answer Notes Are you a: former smoker How long has it been since you last smoked? > 10 years 17 years REASON FOR REFERRAL No Information VITAL SIGNS No information MEDICATIONS Medication SIG (Take, Route, Frequency, Duration) Notes Start Da te End Date Status Albuterol Sulfate HFA 108 (90 Base) MCG/ACT 2 puffs as needed Inhalation every 4 hrs Active Remicade _ as directed Intravenous infusion 10/06/20 Active Ergocalciferol 82148 UNIT 1 capsule Orally Once a week for 28 days Active Lasix 40 MG 1 tablet Orally BID Acti ve Tums 500 MG 1 tablet Orally As needed Active Probiotic - 1 capsule Orally Once a day Active Spironolactone 25 MG 1 tablet Orally Active Tylenol 325 MG 2 tablet as needed for pain Orally every 6 hour s 500 mg Feb, Active Hyoscyamine Sulfate ER 0.375 MG 1 tablet Orally bid Active diphenhydrAMINE HCl 50 MG 1 capsule as needed Orally every 6 hrs Active Multi Vitamin - 1 tablet Orally Once a day for 30 day(s) Active PROCEDURES from 1968 to 2021-02-26 Procedure Date Ordered Result Body Site Imm: Havrix Adult 1.0mL IM Hepatitis A 2021-02-26 N/A RESULTS No Results REASON FOR VISIT HEP SHOT MEDICAL (GENERAL) HISTORY Type Description Date Medical History Crohns disease Previously on prednisone, azathioprine and Humira, possible Celiac disease Medical History osteoarthritis Medical History staph aureus pneumonia with cavitary les ions Medical History asthma Medical History C. 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 treated wit h nitazoxanide 5 days Medical History subsegmental PE s/p 3 months of Eliquis ended May 2019 Medical History automimmune enteropathy Surgical History Colonoscopy x2 09/2018 Surgical History Bronchoscopy 10/2018 Surgical History Endoscopy x2 09/2018 Surgical History Oral 1987 Hospitalization History Dehydration / diarrhea / met abolic acidosis / pneumonia / crohns disease 10/04/18-10/21/18 Hospitalization History [facility] - Dehydration / Malnutrition 11/16 01/04-12/16/18 Hospitalization History [facility] - Dehydration / Pneumonia 9-11/22/18 Hospitalization History [facility]- Dehydration / ilius 12/03/18-706/06 Hospitalization History C-diff 02/11/19- 9 Hospitalization History C-diff and cryptosporidium 9 Hospitalization History [facility] 07/06/2019-07/20 Goals Section No Information Health Concerns No Information MEDICAL EQUIPMENT No Information MENTAL STATUS No Information FUNCTIONAL STATUS No Information ASSESSMENTS Encounter Date Diagnosis Assessment Notes Treatment Notes Treatm ent Clinical Notes Feb, Encounter for immunization (ICD-10 - Z23) PLAN OF TREATMENT Medication Medication Name Sig Start Date Stop Date Spironolactone 25 MG 1 tablet Orally Hyoscyamine Sulfate ER 0.375 MG 1 tablet Orally bid Lasix 40 MG 1 tablet Orally BID Remicade _ as directed Intravenous Ergocalciferol 09865 UNIT 1 capsule Orally Once a week for 28 da ys Next Appt Details Provider Name:Deanna Mixon, 10:00:00 AM, [address] [facility], , [place], [address], Insurance Providers Payer Name Payer Address Payer Phone Insured Name Patient Relati onship to Insured Coverage Start Date Coverage End Date BC[place] P[place] [phone] [facility] [place] [address] CHRIS DELONG [id number]
--- OUTSIDE RECORDS SUMMARY | 2021-03-11 00:59 | CCD ---
Author Author [facility] Organization [facility] Address Unknown Phone Unavailable Care Team Providers Care Telegraph Editor Name Role Phone Deanna Mixon Unavailable PROBLEMS Type Condition ICD9-CM Code POM38-JT Code Onset Dates Condition S tatus W/U Status Risk SNOMED Code Notes Problem Spondylosis of lumbar region without myelopathy or radiculopathy M47.816 Active confirmed 92053287 Problem Osteoarthritis of left hip, unspecified osteoarthritis typ e M16.12 Active confirmed 155067731779727 Problem IBD (inflammatory bowel disease) K52.9 Active conf irmed 22619093 Problem Osteoarthritis of cervical s pine, unspecified spinal osteoarthritis complication status M47.812 Active confirmed 988746980 Problem Anemia, unspecified type D64.9 Active confirmed 716545610 Problem Low serum potassium E87.6 Active confirmed 112889795 Problem On prednisone therapy Z79.52 Active confirmed 504127130 Problem Exacerbation of asthma, unsp ecified asthma severity, unspecified whether persistent J45.901 Active confirmed 344132698 Problem Hypoalbuminemia E88.09 Active confirmed 1192 37157 Problem Acute gout involving toe of right foot, unspecified cause M10.9 Active confirmed 613379106 Problem Immunosuppressed status D89.9 Active confirmed 28189272 Problem Bilateral lower extremity edema R60.0 Active confi rmed 662640810 Problem Other chronic pulmonary embolism without acute cor pulmona le I27.82 Active confirmed 976078773749016 Problem Pedal edema R60.0 Active confirmed 99074611 9 Problem B12 deficiency E53.8 Active confirmed 87930 4004 Problem Crohn''s disease of both small and large intestine without complication K50.80 Active confirmed 81345880 Problem Encounter for immunization Z23 Active confirmed 637091766 Problem Thrombocytopenia D69.6 Active confirmed 415 572443 Problem Weakness R53.1 Active confirmed 14778163 Problem Psoriatic arthritis L40.50 Active confirmed 426262327 Problem Crohn''s disease of large intestine without complication K50.10 Active confirmed 0388285 Problem Vitamin D deficiency E55.9 Active confirmed 17998212 Problem Clostridium difficile colitis A04.72 Active confirm ed 015853389 Problem Hepatic steatosis K76.0 Active confirmed 19 0318738 ALLERGIES Allergen (clinical drug ingredient) Drug/Non Drug Allergy do cumented on EMR Reaction Allergy Type Onset Date Status Codeine Phosphate([facility] Code:[address]-62) hallucinations D rug Allergy Active EPINEPHrine SVTs Drug Allergy Active ENCOUNTERS from 1968 to 2021-02-27 Encounter Location Date Provider Diagnosis [facility] [address] [facility] [phone] [place] [address] Feb, 2021 Deanna Mixon IMMUNIZATIONS Vaccine Route Administration Date Status Influenza [...] Education Language: Question Answer Notes Languages spoken: Bahraini Latter Day: Question Answer Notes Latter Day 07 Pentecostal Sexual Hx: Question Answer Notes Had sex [...] as directed Intravenous infusion 10/06/20 Active Ergocalciferol 55028 UNIT 1 capsule Orally Once a week [...] a day for 30 day(s) Active PROCEDURES No Information RESULTS No Results REASON FOR VISIT REFILL MEDICAL (GENERAL) HISTORY Type Description Date Medical [...] 9-11/22/18 Hospitalization History [facility]- Dehydration / ilius 12/03/18-73 06/06 Hospitalization History C-diff 02/11/19- 9 Hospitalization History C-diff and cryptosporidium 9 Hospitalization History [facility] 07/06/2019-07/20 Goals Section No Information Health Concerns No Information MEDICAL EQUIPMENT No Information MENTAL STATUS No Information FUNCTIONAL STATUS No Information ASSESSMENTS No Information PLAN OF TREATMENT Medication Medication Name Sig Start Date Stop Date Spironolactone 25 MG 1 tablet Orally Hyoscyamine Sulfate ER 0.375 MG 1 tablet Orally bid Lasix 40 MG 1 tablet Orally BID Remicade _ as directed Intravenous Ergocalciferol 62426 UNIT 1 capsule Orally Once a week for 28 da ys Next Appt Details Provider Name:Deanna Mixon, 10:00:00 AM, [address] [facility], , [place], [address], Insurance Providers Payer Name Payer Address Payer Phone Insured Name Patient Relati onship to Insured Coverage Start Date Coverage End Date [place]BS [place] P[place] [phone] [facility] [place] [address] CHRIS DELONG [id number]
--- OUTSIDE RECORDS SUMMARY | 2021-03-11 01:00 | CCD ---
Author Author [facility] Organization [facility] Address Unknown Phone Unavailable Care Team Providers Care Tubing Tester Name Role Phone Priti Bender Unavailable PROBLEMS Type Condition ICD9-CM Code EOC28-PG Code Onset Dates Condition S tatus W/U Status Risk SNOMED Code Notes Problem Weakness R53.1 Active confirmed 81014279 Problem Crohn''s disease of both small and large intestine without complication K50.80 Active confirmed 85271851 Problem Osteoarthritis of left hip, unspecified osteoarthritis typ e M16.12 Active confirmed 954541634775638 Problem Psoriatic arthritis L40.50 Active confirmed 795810886 Problem Osteoarthritis of cervical s pine, unspecified spinal osteoarthritis complication status M47.812 Active confirmed 765204401 Problem Spondylosis of lumbar region without myelopathy or radiculopathy M47.816 Active confirmed 13622540 Problem IBD (inflammatory bowel disease) K52.9 Active conf irmed 06650207 Problem Spondylosis without myelopathy or radiculopathy, cervical region M47.812 Active confirmed 5468776 Problem Anemia, unspecified type D64.9 Active confirmed 279131879 Problem Hypoalbuminemia E88.09 Active confirmed 1192 30081 Problem Thrombocytopenia D69.6 Active confirmed 415 752304 Problem Crohn''s disease of large intestine without complication K50.10 Active confirmed 3131337 Problem On prednisone therapy Z79.52 Active confirmed 890151022 Problem Acute gout involving toe of right foot, unspecified cause M10.9 Active confirmed 073491669 Problem Vitamin D deficiency E55.9 Active confirmed 90419570 Problem Low serum potassium E87.6 Active confirmed 940000975 Problem Exacerbation of asthma, unsp ecified asthma severity, unspecified whether persistent J45.901 Active confirmed 901948567 Problem B12 deficiency E53.8 Active confirmed 38132 4004 Problem Immunosuppressed status D89.9 Active confirmed 27641254 Problem Bilateral lower extremity edema R60.0 Active confi rmed 862789758 Problem Other chronic pulmonary embolism without acute cor pulmona le I27.82 Active confirmed [id number] ALLERGIES Allergen (clinical drug ingredient) Drug/Non Drug Allergy do cumented on EMR Reaction Allergy Type Onset Date Status Codeine Phosphate([facility] Code:[address]-81) hallucinations D rug Allergy Active EPINEPHrine SVTs Drug Allergy Active ENCOUNTERS from 1968 to 2020-12-22 Encounter [facility] [address] [facility] [phone] [place] [address] Dec, Priti Bender Acute non-recurrent sinusiti s, unspecified location J01.90 IMMUNIZATIONS Vaccine Route Administration Date Status Influenza Pharmacy Given IM Intramuscular Feb 25, 2020 Admini stered Influenza 18 yrs & older Flublok IM Intramuscular Mar 15, 2019 Administered Pneumococcal Adult 0.5mL Pneumovax 23 IM Intramuscular Jun 09 020 Administered TDAP 0.5mL (Boostrix) IM Intramuscular Jun 03, 2019 Administe red Pneumococcal 0.5mL Prevnar 13 IM Intramuscular Mar [...] Education Language: Question Answer Notes Languages spoken: Kinyarwanda Tenriism: Question Answer Notes Tenriism 07 Latter-Day Sexual Hx: Question Answer Notes Had sex [...] REASON FOR REFERRAL No Information VITAL SIGNS Weight 305 lbs Dec, Weight-kg 138.35 kg Dec, Height 75 in Dec, BMI 38.12 kg/m2 Dec, Heart Rate 83 /min Dec, Respiratory Rate 18 /min Dec, Temperature 97.9 degrees Fahrenheit Dec, Oximetry 96% Dec, Blood pressure systolic 128 mm Hg Dec, Blood pressure diastolic 76 mm Hg Dec, MEDICATIONS Medication SIG (Take, Route, Frequency, Duration) Notes Start Da te End Date Status Tylenol 325 MG 2 tablet as needed for pain Orally every 6 hour s 500 mg Feb, Active Lasix 40 MG 1 tab Orally Daily 2nd prn Not-Taking Spironolactone 25 MG 1 tablet Orally for 30 day(s) Active Lomotil 2.5-0.025 MG 2 tablets Orally TID Not-Taking Multi Vitamin - 1 tablet Orally Once a day for 30 day(s) Active immodium 2 tablets as needed Oral PRN Not-Taking Albuterol Sulfate HFA 108 (90 Base) MCG/ACT 2 puffs as needed Inhalation every 4 hrs Active diphenhydrAMINE-Zinc Acetate 2-0.1 % 1 application as needed Externally Three times a day Not-Taking Tums 500 MG 1 tablet Orally As needed Active Lasix 40 MG 1 tablet Orally BID Acti ve Magnesium Chloride 64 MG 2 tablets Orally Daily Feb, Not-Taking Budesonide 3 MG 3 capsules Orally Once a day Not-Taking Remicade _ as directed Intravenous infusion 10/06/20 Active diphenhydrAMINE HCl 50 MG 1 capsule as needed Orally every 6 hrs Active Ergocalciferol 69513 UNIT 1 capsule Orally Once a week for 28 Active Ferrous Gluconate 240 (27 Fe) MG 1 tablet with water o r juice between meals Orally tid Not-Taking Probiotic - 1 capsule Orally Once a day Active Clotrimazole 1 % 1 application Externally Twice a day for 28 day (s) Mar, Not-Taking Atovaquone 750 MG/5ML TAKE 10 ML BY MOUTH ONCE DMITRI LY WITH FOOD WILL LAST 42 DAYS Oral for 30 Not-Taking Hyoscyamine Sulfate ER 0.375 MG 2 tablets Orally every 6 hours Not-Taking Triamcinolone Acetonide 0.1 % 1 application Externally Daily, thin layer to affected skin for 14 days September, Not-Ta annie Creon 6000 UNIT as directed Orally pt is not sure of doseage Not-Taking Cyanocobalamin 1000 MCG 1 tablet Orally Once a day for 30 day(s) B12 14 Feb, 2019 Not-Taking azaTHIOprine 50 MG 2 tablets Orally Once a day Not-Taking Humira 40 MG/0.4ML 2 pens, 80 mg Subcutaneous Every two weeks Not-Taking Augmentin 875-125 MG 1 tablet Orally Twice a day for 7 day(s) Dec, Active PROCEDURES No Information RESULTS No Results REASON FOR VISIT sinus sx MEDICAL (GENERAL) HISTORY Type Description Date Medical [...] pneumonia / crohns disease 10/04/18-10/21/[address] [facility] - Dehydration / Malnutrition 11/16 01/04-12/16/18 Hospitalization History [facility] - Dehydration / Pneumonia 9-11/22/18 Hospitalization History [facility]- Dehydration / ilius 12/03/18-11/18 06/06 Hospitalization History C-diff 02/11/19- 9 Hospitalization History C-diff and cryptosporidium 9 Hospitalization History [facility] 07/06/2019-07/20 Goals Section No Information Health Concerns No Information MEDICAL EQUIPMENT No Information MENTAL STATUS No Information FUNCTIONAL STATUS No Information ASSESSMENTS Encounter Date Diagnosis Assessment Notes Treatment Notes Treatm ent Clinical Notes Dec, Acute non-recurrent sinusiti s, unspecified location (ICD-10 - J01.90) Will start Augmentin; pt will call his GI to notify him that he will be on abx. Discussed with patient that he may not receive the Remicade anyway given a current infection. Dec, Other Total time juan miguel bhavin for the patient on the day of the encounter was 20 min PLAN OF TREATMENT Medication Medication Name Sig Start Date Stop Date Augmentin 875-125 MG 1 tablet Orally Twice a day for 7 day(s) Dec, Treatment Notes Assessment Notes Clinical Notes Acute non-recurrent sinusitis, unspecified location Will start Augmentin; pt will call his GI to notify him that he will be on abx. Discussed with patient that he may not receive the Remicade anyway given a current infection. Next Appt Details Provider Name:Deanna Mixon, 10:00:00 AM, [address] [facility], , [place], [address], Insurance Providers Payer Name Payer Address Payer Phone Insured Name Patient Relati onship to Insured Coverage Start Date Coverage End Date [facility] [place] [facility] [phone] [facility] [place] [address] CHRIS DELONG [id number]
--- OUTSIDE RECORDS SUMMARY | 2021-03-11 01:00 | CCD | Continuity of Care Document ---
Author Author Sina HUBER MD Organization Unknown Address [address] [place] [address] Phone [phone] Care Team Providers Care Automatic Spreader Operator Name Role Phone Deanna Mixon AUTM AUTM Unavailable Problems Active Problems Provider Date Allergic asthma without status asthmaticus Brandon Melgar, Onset: 08/25/2018 Social History Type Date Description Comments Sex Unknown Cigarette Use Pack Years - 58 ETOH Use 1-2 A Month Recreational Drug Use Denies Drug Use Tobacco Use Start: 05/19/81 End: 05/19/01 Patient is a forme r smoker 3 PPD HISTORY FOR 20 YEARS Smoking Status Reviewed: 02/23/20 Patient is a former smoker 3 PPD HISTORY FOR 20 YEARS Allergies, Adverse Reactions, Alerts Active Allergies Criticality Reaction | Severity Comments Date Epinephrine Hydrochloride Unable to assess criticality SVT 08/25/2018 Codeine Unable to assess criticality SYNCOPE 08/25/2018 Azathioprine Unable to assess criticality abnormal LFT (possible) | Moderate 06/03/2019 Atovaquone Unable to assess criticality Possible LFT? Hel d 06/21/19--repeat LFT in a week or so 06/21/2019 Medications Active Medications SIG Qnty Indications Ordering Provide r Date Inflectra 100mg Solution Rec 5 mg/kg q 6 weeks Tian Huber MD 05/30/2020 Albuterol Sulfate HFA 108(90Base) mcg/Act Aerosol 1-2 puffs every 6 hours as needed. (please dispense 2 inhale rs) 17gm J45.20 Peggy Auguste M.D. 09/03/2019 Probiotic Capsules 1cap po q d Unknown Lasix 40mg Tablets 1 tab by m outh bid Unknown Spironolactone 25mg Tablets once daily Unknown Vitamin D3 1.25mg (94586 Ut) Capsu les every week Unknown Tylenol PM Extra Strength as needed Unknown Benadryl Allergy 25mg Capsules prn Unknown Immunizations Description No Information Available Vital Signs Date Vital Result Comment 01/11/2021 8:39am BP Systolic 136 mmHg BP Diastolic 78 mmHg Height 75 inches 6'3" Weight 301.00 lb BMI (Body Mass Index) 37.6 kg/m2 [place] Body Weight 196 lb Weight 136.534 kg BSA (Body Surface Area) 2.61 m2 05/30/2020 11:27am BP Systolic 143 mmHg BP Diastolic 73 mmHg Height 75 inches 6'3" Weight 291.00 lb BMI (Body Mass Index) 36.4 kg/m2 [place] Body Weight 196 lb Weight 131.998 kg BSA (Body Surface Area) 2.57 m2 Results Test Acquired Date Facility Test Result H/L Range Note Quanteferon TB Gold Test 01/23/2021 [facility] [address] [place] [address] [phone] QuantiFERON Criteria (SEE NOTE) Normal . 1 QuantiFERON TB1 Ag Value 0.24 IU/mL Normal . QuantiFERON TB2 Ag Value 0.37 IU/mL Normal . QuantiFERON Nil Value 0.07 IU/mL Normal . QuantiFERON Mitogen Value >10.00 IU/mL Normal . QuantiFERON-TB Gold Plus Negative Normal Negative 2 Laboratory test finding 01/23/2021 [facility] Main Lab [address] [place] [address] [phone] Hepatitis B Surface Antigen NEGATIVE Normal Nega tive 1 . The QuantiFERON-TB Gold Plus result is determined by subtracting the Nil value from either TB antigen (Ag) tube. The mitogen tube serves as a control for the test. 2 The specimen received for Qu antiFERON testing was incubated by the ordering institution. Specific procedures outlined in our Directory of Services and in the package insert for the QuantiFERON Gold (In Tube) test must be followed to enable for proper stimulation of cells for the production of interferon gamma. Chemiluminescence immunoassay methodology [facility]formed at[facility] [address] [id number] Manager Of Manufacturing: Trinity Vizcarra MD, Phone: [phone] Procedures Date Code Description Status 01/11/2021 60735 Office/Outpatient Established Lo w MDM 20-29 Min Completed 10/17/2020 35319 Office/Outpatient New Low MDM 30 -44 Minutes Completed Medical Devices Description No Information Available Encounters Type Date Location Provider Dx Diagnosis Office Visit 01/11/2021 8:30a [facility] Tian Huber MD K50.80 Crohn's disease of both smal l and lg int w/o complications Office Visit 10/17/2020 11:00a [facility] Tian Hong MD M76.31 Iliotibial band syndrome, right leg M76.32 Iliotibial band syndrome, le ft leg Assessments Date Code Description Provider 01/11/2021 K50.80 Crohn's disease of b oth small and large intestine without complications Tian Huber MD 10/17/2020 M76.31 Iliotibial band syndrome, right leg Tian Hong MD 10/17/2020 M76.32 Iliotibial band syndrome, left l eg Tian Hong MD Plan of Treatment Future Appointment(s):* 06/15/2021 6:00 am - Tian Huber MD at [facility] * 05/04/2021 6:00 am - Tian Huber MD at [facility] * 03/23/2021 6:00 am - Tian Huber MD at [facility] * 02/09/2021 6:00 am - Tian Huber MD at [facility] * 02/22/2021 2:30 pm - Peggy Auguste M.D. at [facility] Pulmonary/Thoracic 01/11/2021 - Tian Huber MD* K50.80 Crohn's disease of both small and large intestine without complications * * Comments:* doing well. has no c/oHas FLOYD and some numbness of hands with inflecra infusion q 6 weeks. using benadryl/tylenol with some success.Is not immune to Hep B---has no ab. 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 * Recommendations:* Hep B and shingles vacine---Will address Functional Status Description No Information Available Mental Status Description No Information Available Referrals Refer to Reason for Referral Status Appt Date Caitlin Cao M.D. 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 not immune to hep B. He had Hep b vaccine series many years ago. Please provide revaccination if [place] [address] [phone]
--- OUTSIDE RECORDS SUMMARY | 2021-03-11 01:00 | CCD ---
Author Author [facility] Organization [facility] Address Unknown Phone Unavailable Care Team Providers Care Staff Radiation Therapist Name Role Phone Deanna Mixon Unavailable PROBLEMS Type Condition ICD9-CM Code GEL48-UT Code Onset Dates Condition S tatus W/U Status Risk SNOMED Code Notes Problem Weakness R53.1 Active confirmed 61110162 Problem Crohn''s disease of both small and large intestine without complication K50.80 Active confirmed 07581575 Problem Osteoarthritis of left hip, unspecified osteoarthritis typ e M16.12 Active confirmed 063868049283868 Problem Psoriatic arthritis L40.50 Active confirmed 865565027 Problem Osteoarthritis of cervical s pine, unspecified spinal osteoarthritis complication status M47.812 Active confirmed 045495390 Problem Spondylosis of lumbar region without myelopathy or radiculopathy M47.816 Active confirmed 25429013 Problem IBD (inflammatory bowel disease) K52.9 Active conf irmed 00480375 Problem Spondylosis without myelopathy or radiculopathy, cervical region M47.812 Active confirmed 2542779 Problem Anemia, unspecified type D64.9 Active confirmed 786565144 Problem Hypoalbuminemia E88.09 Active confirmed 1192 34641 Problem Thrombocytopenia D69.6 Active confirmed 415 529550 Problem Crohn''s disease of large intestine without complication K50.10 Active confirmed 1688666 Problem On prednisone therapy Z79.52 Active confirmed 212082514 Problem Acute gout involving toe of right foot, unspecified cause M10.9 Active confirmed 456935128 Problem Vitamin D deficiency E55.9 Active confirmed 03249164 Problem Low serum potassium E87.6 Active confirmed 370063507 Problem Exacerbation of asthma, unsp ecified asthma severity, unspecified whether persistent J45.901 Active confirmed 900177918 Problem B12 deficiency E53.8 Active confirmed 96277 4004 Problem Immunosuppressed status D89.9 Active confirmed 70265995 Problem Bilateral lower extremity edema R60.0 Active confi rmed 160358498 Problem Other chronic pulmonary embolism without acute cor pulmona le I27.82 Active confirmed 409612788338779 ALLERGIES Allergen (clinical drug ingredient) Drug/Non Drug Allergy do cumented on EMR Reaction Allergy Type Onset Date Status Codeine Phosphate([facility] Code:[address]-41) hallucinations D rug Allergy Active EPINEPHrine SVTs Drug Allergy Active ENCOUNTERS from 1968 to 2020-12-19 Encounter Location Date Provider Diagnosis [facility] [address] [facility] [phone] [place] [address] Dec, Deanna Mixon IMMUNIZATIONS Vaccine Route Administration Date Status Pneumococcal Adult 0.5mL Pneumovax 23 IM Intramuscular Jun 09 020 Administered Influenza 18 yrs & older Flublok IM Intramuscular Mar 15, 2019 Administered Influenza Pharmacy Given IM Intramuscular Feb 25, 2020 Admini stered TDAP 0.5mL (Boostrix) IM Intramuscular Jun 03, [...] Education Language: Question Answer Notes Languages spoken: Divehi Sikh: Question Answer Notes Sikh 07 Islam Sexual Hx: Question Answer Notes Had sex [...] 64 MG 2 tablets Orally Daily Feb, 19 Not-Taking Budesonide 3 MG 3 capsules Orally Once a day Not-Taking Remicade _ as directed Intravenous infusion 10/06/20 Active diphenhydrAMINE HCl 50 MG 1 capsule as needed Orally every 6 hrs Active Ergocalciferol 45646 UNIT 1 capsule Orally Once a week [...] RESULTS No Results REASON FOR VISIT sinus MEDICAL (GENERAL) HISTORY Type Description Date Medical [...] History C-diff and cryptosporidium 9 Hospitalization History [facility] 07/06/2019-07/20 Goals Section No Information Health Concerns No Information MEDICAL EQUIPMENT No Information MENTAL STATUS No Information FUNCTIONAL STATUS No Information ASSESSMENTS No Information PLAN OF TREATMENT Medication Medication Name Sig Start Date Stop Date Augmentin 875-125 MG 1 tablet Orally Twice a day for 7 day(s) Dec, Next Appt Details Provider Name:Deanna Mixon, 10:00:00 AM, [address] [facility], , [place], [address], Insurance Providers Payer Name Payer Address Payer Phone Insured Name Patient Relati onship to Insured Coverage Start Date Coverage End Date BCBS [place] PPO [phone] [facility] [place] [address] CHRIS DELONG [id number]
--- OUTSIDE RECORDS SUMMARY | 2021-03-11 01:00 | CCD | Continuity of Care Document ---
Author Author Sina CASTRO [place] Organization Unknown Address [address] [place] [address] Phone [phone] Care Team Providers Care Acidity Tester Name Role Phone [facility] AUTM [facility] AUTM [phone] Problems Description No Information Available Social History Type Date Description Comments Sex Unknown Tobacco Use Start: Unknown End: Unknown Former Cigarette Smo ker Quit 2001 ETOH Use Occasionally consumes alcohol Tobacco Use Start: Unknown End: Unknown Patient is a former smoker Smoking Status Reviewed: 05/14/20 Patient is a former smoker Allergies, Adverse Reactions, Alerts Active Allergies Criticality Reaction | Severity Comments Date Epinephrine Unable to assess criticality 01/03/2014 Codeine Unable to assess criticality 05/14/2020 Medications Active Medications SIG Qnty Indications Ordering Provide r Date Multi Vit Mirela Shi JR. 05/14/2020 Remacade Mirela Shi JR. 05/14/2020 Albuterol Sulfate ER Unknown 000 Lasix Unknown Spironolactone Unknown Immunizations Description No Information Available Vital Signs Date Vital Result Comment 05/14/2020 2:53pm BP Systolic 142 mmHg BP Diastolic 88 mmHg Heart Rate 65 /min Respiratory Rate 18 /min O2 % BldC Oximetry 98 % Body Temperature 98.6 F Weight 278.00 lb Pain Level 2 01/03/2014 1:42pm BP Systolic 135 mmHg BP Diastolic 88 mmHg Heart Rate 46 /min Respiratory Rate 16 /min O2 % BldC Oximetry 98 % Body Temperature 97.0 F Weight 250.00 lb Height 75 inches BMI (Body Mass Index) 31.2 kg/m2 Pain Level 7 Results Description No Information Available Procedures Description No Information Available Medical Devices Description No Information Available Encounters Description No Information Available Assessments Date Code Description Provider 01/10/2021 Z20.828 Contact with and (childs spected) exposure to other viral communicable diseases MISSAEL Gardiner Plan of Treatment No Information Available Functional Status Description No Information Available Mental Status Description No Information Available Referrals Description No Information Available"
--- OUTSIDE RECORDS SUMMARY | 2021-03-11 01:00 | CCD | Continuity of Care Document ---
Author Author Sina CASTRO [place] Organization Unknown Address [address] [place] [address] Phone [phone] Care Team Providers Care In Flight Refueling System Repairer Name Role Phone [facility] AUTM [phone] [facility] AUTM [phone] Problems Description No Information Available Social History [...] Available Encounters Description No Information Available Assessments Description No Information Available Plan of Treatment No Information Available Functional Status Description No Information Available Mental Status Description No Information Available Referrals Description No Information Available"
--- OUTSIDE RECORDS SUMMARY | 2021-03-11 01:00 | CCD | Continuity of Care Document ---
Author Author Sina HUBER MD Organization Unknown Address [address] [place] [address] Phone [phone] Care Team Providers Care Purchasing Specialist Name Role Phone Deanna Mxion AUTM [phone] AUTM Unavailable Problems Active Problems Provider Date [...] Tablets once daily Unknown Vitamin D3 1.25mg (11406 Ut) Capsu les every week Unknown Tylenol PM Extra Strength as needed Unknown Benadryl Allergy 25mg Capsules prn Unknown Immunizations Description No Information Available Vital Signs Date Vital Result Comment 01/11/2021 8:39am BP Systolic 136 mmHg BP Diastolic 78 mmHg Height 75 inches 6'3" Weight 301.00 lb BMI (Body Mass Index) 37.6 kg/m2 [place] Body Weight 196 lb Weight 136.534 kg BSA (Body Surface Area) 2.61 m2 05/30/2020 11:27am BP Systolic 143 mmHg BP Diastolic 73 mmHg Height 75 inches 6'3" Weight 291.00 lb BMI (Body Mass Index) 36.4 kg/m2 [place] Body Weight 196 lb Weight 131.998 kg BSA (Body Surface Area) 2.57 m2 Results Description No Information Available Procedures Date Code Description Status 01/11/2021 18998 Office/Outpatient New Moderate M DM 45-59 Minutes Completed 10/17/2020 42802 Office/Outpatient New Low MDM 30 -44 Minutes Completed Medical Devices Description No Information Available Encounters Type Date Location Provider Dx Diagnosis Office Visit 01/11/2021 8:30a [facility] Tian Huber MD K50.80 Crohn's disease of both smal l and lg int w/o complications Office Visit 10/17/2020 11:00a [facility] Tian Hong MD M76.31 Iliotibial band [...] 6:00 am - Tian Huber MD at [facility] * 05/04/2021 6:00 am - Tian Huber MD at [facility] * 03/23/2021 6:00 am - Tian Huber MD at [facility] * 02/09/2021 6:00 am - Tian Huber MD at [facility] * 02/22/2021 2:30 pm - Peggy Auguste M.D. at [facility] 01/11/2021 - Tian Huber MD* K50.80 Crohn's disease of both small and large intestine without complications * * New Labs:* Quanteferon TB Gold Test, Ordered: 01/11/21 * Hepatitis B Surface Antigen, Ordered: 01/11/21 * Comments:* doing well. has no c/oHas FLOYD and some numbness of hands with inflecra infusion q 6 weeks. using benadryl/tylenol with some success.Is not immune to Hep B---has no ab. 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 * Recommendations:* Hep B and shinarthur gtz---Will address Functional Status Description No Information Available Mental Status Description No Information Available Referrals Description No Information Available
--- OUTSIDE RECORDS SUMMARY | 2021-03-11 01:00 | CCD | Continuity of Care Document ---
Author Author Sina HUBER MD Organization Unknown Address [address] [place] [address] Phone [phone] Care Team Providers Care Parking Cashier Name Role Phone Deanna Mixon AUTM [phone] AUTM Unavailable Problems Active Problems Provider Date [...] Tablets once daily Unknown Vitamin D3 1.25mg (29654 Ut) Capsu les every week Unknown Tylenol PM Extra Strength as needed Unknown Benadryl Allergy 25mg Capsules prn Unknown Immunizations Description No Information Available Vital Signs Date Vital Result Comment 01/11/2021 8:39am BP Systolic 136 mmHg BP Diastolic 78 mmHg Height 75 inches 6'3" Weight 301.00 lb BMI (Body Mass Index) 37.6 kg/m2 Drums Body Weight 196 lb Weight 136.534 kg BSA (Body Surface Area) 2.61 m2 05/30/2020 11:27am BP Systolic 143 mmHg BP Diastolic 73 mmHg Height 75 inches 6'3" Weight 291.00 lb BMI (Body Mass Index) 36.4 kg/m2 Drums Body Weight 196 lb Weight 131.998 kg BSA (Body Surface Area) 2.57 m2 Results Test Acquired Date Facility Test Result H/L Range Note Laboratory test finding 01/23/2021 [facility] [address] [place], [place] [id number] [phone] Hepatitis B Surface Antigen NEGATIVE Normal Nega tive Hepatitis B Surface Antibody <pending> Procedures Date Code Description Status 01/11/2021 63938 Office/Outpatient Established Lo w MDM 20-29 Min Completed 10/17/2020 31094 Office/Outpatient New Low MDM 30 -44 Minutes Completed Medical Devices Description No Information Available Encounters Type Date Location Provider Dx Diagnosis Office Visit 01/11/2021 8:30a [facility] Tian Huber MD K50.80 Crohn's disease of both smal l and lg int w/o complications Office Visit 10/17/2020 11:00a [facility] Orthopedics Tian Hong MD M76.31 Iliotibial band [...] 6:00 am - Tian Huber MD at [facility] * 05/04/2021 6:00 am - Tian Huber MD at [facility] * 03/23/2021 6:00 am - Tian Huber MD at [facility] * 02/09/2021 6:00 am - Tian Huber MD at [facility] * 02/22/2021 2:30 pm - Peggy Auguste M.D. at [facility] Pulmonary/Thoracic 01/11/2021 - Tian Huber MD* K50.80 [...] Please provide revaccination if deemed appropriate. Created [address] [address] [phone]
--- OUTSIDE RECORDS SUMMARY | 2021-03-11 01:00 | CCD ---
Author Author [facility] Organization [facility] Address Unknown Phone Unavailable Care Team Providers Care Information Technology Officer Name Role Phone Caitlin Cao Unavailable PROBLEMS Type Condition ICD9-CM Code HIU16-SR Code Onset Dates Condition S tatus W/U Status Risk SNOMED Code Notes Problem Spondylosis of lumbar region without myelopathy or radiculopathy M47.816 Active confirmed 29571042 Problem Osteoarthritis of left hip, unspecified osteoarthritis typ e M16.12 Active confirmed 139874973117339 Problem IBD (inflammatory bowel disease) K52.9 Active conf irmed 66085053 Problem Osteoarthritis of cervical s pine, unspecified spinal osteoarthritis complication status M47.812 Active confirmed 170309222 Problem Anemia, unspecified type D64.9 Active confirmed 192534468 Problem Low serum potassium E87.6 Active confirmed 524908205 Problem On prednisone therapy Z79.52 Active confirmed 179154305 Problem Exacerbation of asthma, unsp ecified asthma severity, unspecified whether persistent J45.901 Active confirmed 769717147 Problem Hypoalbuminemia E88.09 Active confirmed 1192 58477 Problem Acute gout involving toe of right foot, unspecified cause M10.9 Active confirmed 742094659 Problem Immunosuppressed status D89.9 Active confirmed 94081451 Problem Bilateral lower extremity edema R60.0 Active confi rmed 066476597 Problem Other chronic pulmonary embolism without acute cor pulmona le I27.82 Active confirmed 637284059279999 Problem Pedal edema R60.0 Active confirmed 68584274 9 Problem B12 deficiency E53.8 Active confirmed 46516 4004 Problem Crohn''s disease of both small and large intestine without complication K50.80 Active confirmed 07264605 Problem Encounter for immunization Z23 Active confirmed 181644729 Problem Thrombocytopenia D69.6 Active confirmed 415 133381 Problem Weakness R53.1 Active confirmed 08057483 Problem Psoriatic arthritis L40.50 Active confirmed 073770775 Problem Crohn''s disease of large intestine without complication K50.10 Active confirmed 9458930 Problem Vitamin D deficiency E55.9 Active confirmed 96169547 Problem Clostridium difficile colitis A04.72 Active confirm ed 785870613 Problem Hepatic steatosis K76.0 Active confirmed 19 6483432 ALLERGIES Allergen (clinical drug ingredient) Drug/Non Drug Allergy do cumented on EMR Reaction Allergy Type Onset Date Status Codeine Phosphate([facility] Code:[address]-26) hallucinations D rug Allergy Active EPINEPHrine SVTs Drug Allergy Active ENCOUNTERS from 1968 to 2021-02-02 Encounter Location Date Provider Diagnosis [facility] [place] [address] [facility] [phone] [place] [address] 13 Jan, 2021 Caitlin Cao Clostridium difficil e colitis A04.72 ; Crohn''s disease of both small and large intestine without complication K50.80 ; Hepatic steatosis K76.0 ; Pedal edema R60.0 and Encounter for immunization Z23 IMMUNIZATIONS Vaccine Route Administration Date Status Influenza [...] Education Language: Question Answer Notes Languages spoken: Occitan Denominational: Question Answer Notes Denominational 07 [employer] Sexual Hx: Question Answer Notes Had sex [...] FOR REFERRAL No Information VITAL SIGNS Weight 304 lbs Jan, Weight-kg 137.89 kg Jan, Height 75 in Jan, BMI 37.99 kg/m2 Jan, Heart Rate 76 /min Jan, Respiratory Rate 18 /min Jan, Temperature 97.6 degrees Fahrenheit Jan, Oximetry 97% Jan, Blood pressure systolic 124 mm Hg Jan, Blood pressure diastolic 78 mm Hg Jan, MEDICATIONS Medication SIG (Take, Route, Frequency, Duration) Notes Start Da te End Date Status Albuterol Sulfate HFA 108 (90 Base) MCG/ACT 2 puffs as needed Inhalation every 4 hrs Active Remicade _ as directed Intravenous infusion 10/06/20 Active Ergocalciferol 78609 UNIT 1 capsule Orally Once a week for 28 Active Lasix 40 MG 1 tablet Orally [...] 30 day(s) Active PROCEDURES from 1968 to 2021-02-02 Procedure Date Ordered Result Body Site Imm: HEPLISAV-B 0.5mL IM Hepatitis B 2021-01-29 N/A Imm: Havrix Adult 1.0mL IM Hepatitis A 2021-01-29 N/A RESULTS No Results REASON FOR VISIT imms for hep b MEDICAL (GENERAL) HISTORY Type Description Date Medical [...] Hospitalization History [facility] 07/06/2019-07/20 Goals Section No Information Health Concerns No Information MEDICAL EQUIPMENT No Information MENTAL STATUS No Information FUNCTIONAL STATUS No Information ASSESSMENTS Encounter Date Diagnosis Assessment Notes Treatment Notes Treatm ent Clinical Notes Jan, Clostridium difficile colitis (ICD-10 - A04.72) History of recurrent C.difficile infections, last episode on 05/2019Jan, Crohn''s disease of both sma ll and large intestine without complication (ICD-10 - K50.80) Jan, Hepatic steatosis (ICD-10 - K76.0) Jan, Pedal edema (ICD-10 - R60.0) Jan, Encounter for immunization (ICD-10 - Z23) Immunocompromised patient, up-to-date with influenza and PNA vaccination. 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 Next Appt Details 1 month nurse visit and 6 month nurse vi sit Reason: Provider Name:Caitlin Porter Kiley, 2021-02-16 08:00:00 AM, [address] [facility], , [place], [address], Provider Name:Deanna Mixon, 10:00:00 AM, [address] [facility], , [place], [address], Insurance Providers Payer Name Payer Address Payer Phone Insured Name Patient Relati onship to Insured Coverage Start Date Coverage End Date BCBS [employer] PPO [id number] [facility] [employer] [place] [address] CHRIS DELONG [id number]
--- OUTSIDE RECORDS SUMMARY | 2021-03-11 01:00 | CCD ---
Author Author [facility] Organization [facility] Address Unknown Phone Unavailable Support Name Relationship Address Phone [facility] Next Of Kin [address] [place], [place] [phone] [facility] Next Of Kin 6 1[address] [place], [place] [phone] [facility] Next [place] Kin [address] [address] [facility] [place] [address] BALJE[employer] KEVEN Next Of Kin [address] [place] [address] Care Team Providers Care Industrial Safety And Health Technician Name Role Phone TAURUS WALTERS MD Unavailable Unavailable REINDL, TAURUS CARLISLE Unavailable Unavailable REINDL, TAURUS CARLISLE Unavailable Unavailable REINDL, TAURUS CARLISLE Unavailable Unavailable REINDL, TAURUS CARLISLE Unavailable Unavailable REINDL, TAURUS CARLISLE Unavailable Unavailable REINDL, TAURUS CARLISLE Unavailable Unavailable REINDL, TAURUS CARLISLE Unavailable Unavailable REINDL, TAURUS CARLISLE Unavailable Unavailable REINDL, TAURUS CARLISLE Unavailable Unavailable REINDL, TAURUS CARLISLE Unavailable Unavailable REINWINSOME, TAURUS CARLISLE Unavailable Unavailable REINDL, TAURUS CARLISLE Unavailable Unavailable REINWINSOME, TAURUS CARLISLE Unavailable Unavailable REINDL, TAURUS CARLISLE Unavailable Unavailable REINDL, TAURUS CARLISLE Unavailable Unavailable REINDL, TAURUS CARLISLE Unavailable Unavailable REINDL, TAURUS CARLISLE Unavailable Unavailable REINDL, TAURUS CARLISLE Unavailable Unavailable REINDL, TAURUS CARLISLE Unavailable Unavailable REINDL, TAURUS CARLISLE Unavailable Unavailable REINDL, TAURUS CARLISLE Unavailable Unavailable REINDL, TAURUS CARLISLE Unavailable Unavailable REINDL, TAURUS CARLISLE Unavailable Unavailable REINDL, TAURUS CARLISLE Unavailable Unavailable REINDL, TAURUS CARLISLE Unavailable Unavailable REINDL, TAURUS CARLISLE Unavailable Unavailable REINDL, TAURUS CARLISLE Unavailable Unavailable REINWINSOME, TAURUS CARLISLE Unavailable Unavailable REINWINSOME, TAURUS CARLISLE Unavailable Unavailable REINWINSOME, TAURUS CARLISLE Unavailable Unavailable REINDL, TAURUS CARLISLE Unavailable Unavailable REINWINSOME, TAURUS CARLISLE Unavailable Unavailable ROMEO, TAURUS CARLISLE Unavailable Unavailable ROMEO, TAURUS CARLISLE Unavailable Unavailable REINWINSOME, TAURUS CARLISLE Unavailable Unavailable ROMEO, TAURUS CARLISLE Unavailable Unavailable REINWINSOME, TAURUS CARLISLE Unavailable Unavailable REINWINSOME, TAURUS CARLISLE Unavailable Unavailable REINDL, TAURUS CARLISLE Unavailable Unavailable REINDL, TAURUS CARLISLE Unavailable Unavailable REINWINSOME, TAURUS MD Unavailable Unavailable Peggy Auguste MD Unavailable Unavailable Peggy Auguste MD Unavailable Unavailable Peggy Auguste MD Unavailable Unavailable Peggy Auguste MD Unavailable Unavailable Peggy Auguste MD Unavailable Unavailable Peggy Auguste MD Unavailable Unavailable Peggy Auguste MD Unavailable Unavailable Peggy Auguste MD Unavailable Unavailable Peggy Auguste MD Unavailable Unavailable Peggy Auguste MD Unavailable Unavailable Peggy Auguste MD Unavailable Unavailable Peggy Auguste MD Unavailable Unavailable Peggy Auguste MD Unavailable Unavailable Peggy Auguste MD Unavailable Unavailable Peggy Auguste MD Unavailable Unavailable Peggy Auguste MD Unavailable Unavailable Peggy Auguste MD Unavailable Unavailable Peggy Auguste MD Unavailable Unavailable Peggy Auguste MD Unavailable Unavailable Peggy Auguste MD Unavailable Unavailable Peggy Auguste MD Unavailable Unavailable Peggy Auguste MD Unavailable Unavailable Peggy Auguste MD Unavailable Unavailable Peggy Auguste MD Unavailable Unavailable Peggy Auguste MD Unavailable Unavailable Peggy Auguste MD Unavailable Unavailable Peggy Auguste MD Unavailable Unavailable Peggy Auguste MD Unavailable Unavailable Peggy Auguste MD Unavailable Unavailable Peggy Auguste MD Unavailable Unavailable Sheikh, Ayanna Kacey PA Unavailable Unavailable Sheikh, Ayanna Kacey PA Unavailable Unavailable Sheikh, Ayanna Kacey PA Unavailable Unavailable Sheikh, Ayanna Kacey PA Unavailable Unavailable Sheikh, Ayanna Kacey PA Unavailable Unavailable Sheikh, Ayanna Kacey PA Unavailable Unavailable Sheikh, Ayanna Kacey PA Unavailable Unavailable Sheikh, Ayanna Kacey PA Unavailable Unavailable Sheikh, Ayanna Kacey PA Unavailable Unavailable Sheikh, Ayanna Kacey PA Unavailable Unavailable Taurus Hong MD Unavailable Unavailable Taurus Hong MD Unavailable Unavailable Taurus Hong MD Unavailable Unavailable Taurus Hong MD Unavailable Unavailable Taurus Hong MD Unavailable Unavailable Taurus Hong MD Unavailable Unavailable Taurus Hong MD Unavailable Unavailable Taurus Hong MD Unavailable Unavailable Taurus Hong MD Unavailable Unavailable Taurus Hong MD Unavailable Unavailable JAMES WHITE MD Unavailable Unavailable JAMES WHITE MD Unavailable Unavailable JAMES WHITE MD Unavailable Unavailable JAMES WHITE MD Unavailable Unavailable JAMES WHITE MD Unavailable Unavailable JAMES WHITE MD Unavailable Unavailable KHAIRALLAH, RAMZI MD Unavailable Unavailable KHAIRALLAH, RAMZI MD Unavailable Unavailable KHAIRALLAH, RAMZI MD Unavailable Unavailable KHAIRALLAH, RAMZI MD Unavailable Unavailable KHAIRALLAH, RAMZI MD Unavailable Unavailable KHAIRALLAH, RAMZI MD Unavailable Unavailable KHAIRALLAH, RAMZI MD Unavailable Unavailable KHAIRALLAH, RAMZI MD Unavailable Unavailable KHAIRALLAH, RAMZI MD Unavailable Unavailable KHAIRALLAH, RAMZI MD Unavailable Unavailable KHAIRALLAH, RAMZI MD Unavailable Unavailable KHAIRALLAH, RAMZI MD Unavailable Unavailable KHAIRALLAH, RAMZI MD Unavailable Unavailable KHAIRALLAH, RAMZI MD Unavailable Unavailable KHAIRALLAH, RAMZI MD Unavailable Unavailable KHAIRALLAH, RAMZI MD Unavailable Unavailable KHAIRALLAH, RAMZI MD Unavailable Unavailable KHAIRALLAH, RAMZI MD Unavailable Unavailable KHAIRALLAH, RAMZI MD Unavailable Unavailable KHAIRALLAH, RAMZI MD Unavailable Unavailable KHAIRALLAH, RAMZI MD Unavailable Unavailable KHAIRALLAH, RAMZI MD Unavailable Unavailable KHAIRALLAH, RAMZI MD Unavailable Unavailable KHAIRALLAH, RAMZI MD Unavailable Unavailable KHAIRALLAH, RAMZI MD Unavailable Unavailable KHAIRALLAH, RAMZI MD Unavailable Unavailable KHAIRALLAH, RAMZI MD Unavailable Unavailable KHAIRALLAH, RAMZI MD Unavailable Unavailable KHAIRALLAH, RAMZI MD Unavailable Unavailable KHAIRALLAH, RAMZI MD Unavailable Unavailable KHAIRALLAH, RAMZI MD Unavailable Unavailable KHAIRALLAH, RAMZI MD Unavailable Unavailable KHAIRALLAH, RAMZI MD Unavailable Unavailable KHAIRALLAH, RAMZI MD Unavailable Unavailable KHAIRALLAH, RAMZI MD Unavailable Unavailable KHAIRALLAH, RAMZI MD Unavailable Unavailable KHAIRALLAH, RAMZI MD Unavailable Unavailable KHAIRALLAH, RAMZI MD Unavailable Unavailable KHAIRALLAH, RAMZI MD Unavailable Unavailable KHAIRALLAH, RAMZI MD Unavailable Unavailable KHAIRALLAH, RAMZI MD Unavailable Unavailable KHAIRALLAH, RAMZI MD Unavailable Unavailable KHAIRALLAH, RAMZI MD Unavailable Unavailable KHAIRALLAH, RAMZI MD Unavailable Unavailable KHAIRALLAH, RAMZI MD Unavailable Unavailable KHAIRALLAH, RAMZI MD Unavailable Unavailable KHAIRALLAH, RAMZI MD Unavailable Unavailable KHAIRALLAH, RAMZI MD Unavailable Unavailable KHAIRALLAH, RAMZI MD Unavailable Unavailable KHAIRALLAH, RAMZI MD Unavailable Unavailable KHAIRALLAH, RAMZI MD Unavailable Unavailable KHAIRALLAH, RAMZI MD Unavailable Unavailable KHAIRALLAH, RAMZI MD Unavailable Unavailable KHAIRALLAH, RAMZI MD Unavailable Unavailable KHAIRALLAH, RAMZI MD Unavailable Unavailable KHAIRALLAH, RAMZI MD Unavailable Unavailable KHAIRALLAH, RAMZI MD Unavailable Unavailable KHAIRALLAH, RAMZI MD Unavailable Unavailable KHAIRALLAH, RAMZI MD Unavailable Unavailable KHAIRALLAH, RAMZI MD Unavailable Unavailable KHAIRALLAH, RAMZI MD Unavailable Unavailable KHAIRALLAH, RAMZI MD Unavailable Unavailable KHAIRALLAH, RAMZI MD Unavailable Unavailable KHAIRALLAH, RAMZI MD Unavailable Unavailable KHAIRALLAH, RAMZI MD Unavailable Unavailable KHAIRALLAH, RAMZI MD Unavailable Unavailable KHAIRALLAH, RAMZI MD Unavailable Unavailable KHAIRALLAH, RAMZI MD Unavailable Unavailable KHAIRALLAH, RAMZI MD Unavailable Unavailable KHAIRALLAH, RAMZI MD Unavailable Unavailable KHAIRALLAH, RAMZI MD Unavailable Unavailable KHAIRALLAH, RAMZI MD Unavailable Unavailable KHAIRALLAH, RAMZI MD Unavailable Unavailable KHAIRALLAH, RAMZI MD Unavailable Unavailable KHAIRALLAH, RAMZI MD Unavailable Unavailable KHAIRALLAH, RAMZI MD Unavailable Unavailable KHAIRALLAH, RAMZI MD Unavailable Unavailable KHAIRALLAH, RAMZI MD Unavailable Unavailable KHAIRALLAH, RAMZI MD Unavailable Unavailable KHAIRALLAH, RAMZI MD Unavailable Unavailable KHAIRALLAH, RAMZI MD Unavailable Unavailable KHAIRALLAH, RAMZI MD Unavailable Unavailable Re-disclosure Warning The records that you are about to access may contain information from federally-assisted alcohol or drug abuse programs. If such information is present, then the following federally mandated warning applies: This information has been disclosed to you from records protected by federal confidentiality rules (42 CFR part 2). The federal rules prohibit you from making any further disclosure of this information unless further disclosure is expressly permitted by the written consent of the person to whom it pertains or as otherwise permitted by 42 CFR part 2. A general authorization for the release of medical or other information is NOT sufficient for this purpose. The Federal rules restrict any use of the information to criminally investigate or prosecute any alcohol or drug abuse patient.The records that you are about to access may contain highly sensitive health information, the redisclosure of which is protected by Article 27-F of the [facility] Public Health law. If you continue you may have access to information: Regarding HIV / AIDS; Provided by facilities licensed or operated by the [facility] Office of Mental Health; or Provided by the [facility] Office for People With Developmental Disabilities. If such information is present, then the following [facility] mandated warning applies: This information has been disclosed to you from confidential records which are protected by state law. State law prohibits you from making any further disclosure of this information without the specific written consent of the person to whom it pertains, or as otherwise permitted by law. Any unauthorized further disclosure in violation of state law may result in a fine or senior living sentence or both. A general authorization for the release of medical or other information is NOT sufficient authorization for further disc losure. Family History Family Member Name Family Member Gender Family Member Status Date o f Status Description Data Source(s) Unknown Unknown Problem MEDENT ([facility], ) Unknown Female Problem (finding) 06/11/2017 12:00:00 AM EST NextGen ([facility]) Unknown Female Problem (finding) 06/11/2017 12:00:00 AM EST NextGen ([facility]) Unknown Female Problem (finding) 06/11/2017 12:00:00 AM EST NextGen ([facility]) Unknown Female Problem MEDENT ([facility] Encounters Encounter Providers Location Date Indications Data Source(s ) Unknown [address] [facility] [place] [place] [address] 02/26/2021 12:00:00 AM EDT eCW1 ([facility]) Outpatient [address] [place] [phone] 02/26/2021 12:00:00 AM EDT eCW1 ([facility]) Outpatient [address] [place] [address] Y [address] 01/29/2021 12:00:00 AM EDT eCW1 ([facility]) Outpatient Attender: TAURUS Orozco/Mervat/Ketan/Silverio lockett 01/11/2021 08:30:00 AM EDT MEDENT ([facility] ) Outpatient [address] [place] [phone] 12/19/2020 12:00:00 AM EDT [facility] Unknown [address] [facility] [address] 12/19/2020 12:00:00 AM EDT [facility] Unknown [address] [facility] [place] [address] 11/06/2020 12:00:00 AM EDT [facility]) Outpatient Attender: Taurus Orozco/Mervat/Ketan/Rein dl 10/17/2020 11:00:00 AM EDT MEDENT ([facility]) Outpatient [address] [facility] [place] [address] 10/05/2020 12:00:00 AM EDT eCW1 ([facility]) Unknown [address] [facility] [place] [place] [address] 07/10/2020 12:00:00 AM EST eCW1 ([facility]) Attender: JAMES WHITE MD [facility] 05/30/2020 07:08:00 PM EST - 05/30/2020 07:08:00 PM EST NextGen ( [facility]) Outpatient Attender: TAURUS Orozco/Mervat/Ketan/Rein dl 05/30/2020 10:30:00 AM EST MEDENT ([facility]) Outpatient Attender: Kacey blue 05/14/2020 12:20:00 PM EST MEDENT ([facility]) Unknown [address] [facility] [address] 05/09/2020 12:00:00 AM EST eCW1 ([facility]) Outpatient [address] [facility] [place] [address] 04/07/2020 12:00:00 AM EST eCW1 ([facility]) Unknown [address] [facility] [place] [address] 02/25/2020 12:00:00 AM EDT eCW1 ([facility]) Outpatient Attender: Peggy Orozco/Mervat/Ketan/Rex ndyulissa 02/23/2020 02:30:00 PM EDT MEDENT ([facility], ) Immunizations Vaccine Date Status Description Data Source(s) Hep A, adult 02/26/2021 10:38:00 AM EDT completed e CW1 ([facility]) Hep A, adult 02/26/2021 10:38:00 AM EDT completed e CW1 ([facility]) COVID-19 VACCINE Moderna 02/19/2021 12:00:00 AM EDT completed NYSIIS Vaccine Series Complete: YESThis Data wa s Submitted to [facility] Via [employer] Hep A, adult 01/29/2021 10:10:00 AM EDT completed e CW1 ([facility]) Hepatitis B 0.5mL HEPLISAV-B 01/29/2021 10:10:00 AM EDT completed eCW1 ([facility]) Hep A, adult 01/29/2021 10:10:00 AM EDT completed e CW1 ([facility]) Hepatitis B 0.5mL HEPLISAV-B 01/29/2021 10:10:00 AM EDT completed eCW1 ([facility]) Hep A, adult 01/29/2021 10:10:00 AM EDT completed e CW1 ([facility]) Hepatitis B 0.5mL HEPLISAV-B 01/29/2021 10:10:00 AM EDT completed eCW1 ([facility]) COVID-19 VACCINE Moderna 06/14/2020 12:00:00 AM EST completed [facility]IS Vaccine Series Complete: YESThis Data wa s Submitted to [facility] Via [employer] COVID-19 VACCINE Moderna 05/17/2020 12:00:00 AM EST completed [facility] Vaccine Series Complete: NOThis Data was Submitted to [facility] Via [employer] IIV3. This is one of two codes replacing CVX 15, which is being retired. 02/25/2020 08:59:00 AM EDT completed eCW1 ([facility]) IIV3. This is one of two codes replacing CVX 15, which is being retired. 02/25/2020 08:59:00 AM EDT completed eCW1 ([facility]) IIV3. This is one of two codes replacing CVX 15, which is being retired. 02/25/2020 08:59:00 AM EDT completed eCW1 ([facility]) IIV3. This is one of two codes replacing CVX 15, which is being retired. 02/25/2020 08:59:00 AM EDT completed eCW1 ([facility]) IIV3. This is one of two codes replacing CVX 15, which is being retired. 02/25/2020 08:59:00 AM EDT completed eCW1 ([facility]) IIV3. This is one of two codes replacing CVX 15, which is being retired. 02/25/2020 08:59:00 AM EDT completed eCW1 ([facility]) IIV3. This is one of two codes replacing CVX 15, which is being retired. 02/25/2020 08:59:00 AM EDT completed eCW1 ([facility]) IIV3. This is one of two codes replacing CVX 15, which is being retired. 02/25/2020 08:59:00 AM EDT completed eCW1 ([facility]) IIV3. This is one of two codes replacing CVX 15, which is being retired. 02/25/2020 08:59:00 AM EDT completed eCW1 ([facility]) IIV3. This is one of two codes replacing CVX 15, which is being retired. 02/25/2020 08:59:00 AM EDT completed eCW1 ([facility]) INFLUENZA VIRUS VACCINE QUADRIVAL 4761-1658(6 MOS AND UP)/PF 01/29/2020 12:00:00 AM EDT completed [facility] Medications Medication Brand Name Start Date Product Form Dose Route Admi nistrative Instructions Pharmacy Instructions Status Indications Reaction Description Data Source(s) 1,250 mcg (50,000 unit) 02/27/2021 12:00:00 AM EDT capsule 4 TAKE 1 CAPSULE BY MOUTH ONCE A WEEK TAKE 1 CAPSULE BY MOUTH ONCE A WEEK SOLD: 03/03/2021 [facility] 100 mcg/0.5 mL 02/19/2021 12:00:00 AM EDT suspension 0 INJECT DIRECTED PER STANDING ORDER [3RD DOSE] INJECT DIRECTED PER STANDING ORDER [3RD DOSE] SOLD: 02/19/2021 [facility] Augmentin 875-125 MG UNK 12/19/2020 12:00:00 AM EDT 1.0 {tablet } active Augmentin 875-125 MG eCW1 ([facility]) Amoxicillin 875 MG / Clavulanate 125 MG Oral Tablet 87 5-125 mg AMOXICILLIN/POTASSIUM CLAV 12/19/2020 12:00:00 AM EDT tablet 14 TAKE ONE TABLET BY MOUTH TWICE A DAY FOR 7 DAYS TAKE ONE TABLET BY MOUTH TWICE A DAY FOR 7 DAYS SOLD: 12/19/2020 [facility] Augmentin 875-125 MG UNK 12/19/2020 12:00:00 AM EDT 1.0 {tablet } active Augmentin 875-125 MG eCW1 ([facility]) 1,250 mcg (50,000 unit) 11/07/2020 12:00:00 AM EDT capsule 4 TAKE 1 CAPSULE BY MOUTH ONCE A WEEK TAKE 1 CAPSULE BY MOUTH ONCE A WEEK SOLD: 11/29/2020 [facility] 1,250 mcg (50,000 unit) 11/07/2020 12:00:00 AM EDT capsule 4 TAKE 1 CAPSULE BY MOUTH ONCE A WEEK TAKE 1 CAPSULE BY MOUTH ONCE A WEEK SOLD: 01/15/2021 [facility] 1,250 mcg (50,000 unit) 11/07/2020 12:00:00 AM EDT capsule 4 TAKE 1 CAPSULE BY MOUTH ONCE A WEEK TAKE 1 CAPSULE BY MOUTH ONCE A WEEK SOLD: 12/19/2020 [facility] 40 mg 11/06/2020 12:00:00 AM EDT tablet 60 TAKE 1TAB.BY MOUTH DAILY;EXTRA 1TAB.IN P.M. NEEDED FOR INCREASED LEG EDEMA TAKE 1TAB.BY MOUTH DAILY;EXTRA 1TAB.IN P.M. NEEDED FOR INCREASED LEG EDEMA SOLD: 11/10/2020 [facility] 40 mg 11/06/2020 12:00:00 AM EDT tablet 60 TAKE 1TAB.BY MOUTH DAILY;EXTRA 1TAB.IN P.M. NEEDED FOR INCREASED LEG EDEMA TAKE 1TAB.BY MOUTH DAILY;EXTRA 1TAB.IN P.M. NEEDED FOR INCREASED LEG EDEMA SOLD: 01/15/2021 [facility] 40 mg 11/06/2020 12:00:00 AM EDT tablet 60 TAKE 1TAB.BY MOUTH DAILY;EXTRA 1TAB.IN P.M. NEEDED FOR INCREASED LEG EDEMA TAKE 1TAB.BY MOUTH DAILY;EXTRA 1TAB.IN P.M. NEEDED FOR INCREASED LEG EDEMA SOLD: 12/15/2020 [facility] 40 mg 11/06/2020 12:00:00 AM EDT tablet 60 TAKE 1TAB.BY MOUTH DAILY;EXTRA 1TAB.IN P.M. NEEDED FOR INCREASED LEG EDEMA TAKE 1TAB.BY MOUTH DAILY;EXTRA 1TAB.IN P.M. NEEDED FOR INCREASED LEG EDEMA SOLD: 02/19/2021 [facility] Cyclobenzaprine hydrochloride 10 MG Oral Tablet CYCLOBENZAPR INE HCL 10/09/2020 12:00:00 AM EDT tablet 15 TAKE ONE TABLET BY MOUTH EVERY EVENING NEEDED FOR SPASMS TAKE ONE TABLET BY MOUTH EVERY EVENING NEEDED FOR S PASMS SOLD: 10/09/2020 [facility] 20 mg 10/09/2020 12:00:00 AM EDT tablet 15 TAKE THREE TABLETS BY MOUTH EVERY DAY FOR 5 DAYS TAKE THREE TABLETS BY MOUTH EVERY DAY FOR 5 DAYS SOLD: 10/09/2020 [facility] 25 mg 08/29/2020 12:00:00 AM EDT tablet 60 TAKE ONE TABLET BY MOUTH TWICE A DAY TAKE ONE TABLET BY MOUTH TWICE A DAY SOLD: 10/09/2020 [facility] 25 mg 08/29/2020 12:00:00 AM EDT tablet 60 TAKE ONE TABLET BY MOUTH TWICE A DAY TAKE ONE TABLET BY MOUTH TWICE A DAY SOLD: 02/19/2021 [facility] 25 mg 08/29/2020 12:00:00 AM EDT tablet 60 TAKE ONE TABLET BY MOUTH TWICE A DAY TAKE ONE TABLET BY MOUTH TWICE A DAY SOLD: 01/15/2021 [facility] 25 mg 08/29/2020 12:00:00 AM EDT tablet 60 TAKE ONE TABLET BY MOUTH TWICE A DAY TAKE ONE TABLET BY MOUTH TWICE A DAY SOLD: 09/10/2020 [facility] 25 mg 08/09/2020 12:00:00 AM EDT tablet 30 TAKE 1 TABLET BY MOUTH EVERY DAY TAKE 1 TABLET BY MOUTH EVERY DAY SOLD: 08/09/2020 [facility] 1,250 mcg (50,000 unit) 07/12/2020 12:00:00 AM EST capsule 4 TAKE ONE CAPSULE BY MOUTH ONCE A WEEK TAKE ONE CAPSULE BY MOUTH ONCE A WEEK SOLD: 08/16/2020 [facility] 1,250 mcg (50,000 unit) 07/12/2020 12:00:00 AM EST capsule 4 TAKE ONE CAPSULE BY MOUTH ONCE A WEEK TAKE ONE CAPSULE BY MOUTH ONCE A WEEK SOLD: 10/09/2020 [facility] 1,250 mcg (50,000 unit) 07/12/2020 12:00:00 AM EST capsule 4 TAKE ONE CAPSULE BY MOUTH ONCE A WEEK TAKE ONE CAPSULE BY MOUTH ONCE A WEEK SOLD: 07/14/2020 [facility] 25 mg 06/29/2020 12:00:00 AM EST tablet 30 TAKE 1 TABLET BY MOUTH EVERY DAY TAKE 1 TABLET BY MOUTH EVERY DAY SOLD: 06/29/2020 [facility] 3.5mg/mL-10,000 unit/mL-0.1 % 06/27/2020 12:00:00 AM EST deanna ps,suspension 5 INSTILL 1 DROP INTO EACH EYE FOUR TIMES A DAY FOR 12 DAYS INSTILL 1 DROP INTO EACH EYE FOUR TIMES A DAY FOR 12 DAYS SOLD: 06/29/2020 [facility] 36,000-114,000- 180,000 unit 06/13/2020 12:00:00 AM EST capsule,delayed release(DR/EC) 250 TAKE 2 CAPSULES BY M OUTH 3 TIMES A DAY WITH MEALS & 1 CAPSULE WITH SNACKS TAKE 2 CAPSULES BY MOUTH 3 TIMES A DAY W ITH MEALS & 1 CAPSULE WITH SNACKS SOLD: 06/15/2020 [facility] Amylases 991844 UNT / Endopeptidases 114 000 UNT / Lipase 44465 UNT Delayed Release Oral Capsule [Creon] Creon 06/12/2020 12:00:00 AM EST [facility] Inflectra Inflectra 05/30/2020 12:00:00 AM EST act raoul MEDENT ([facility]) Multi Vit 05/14/2020 12:00:00 AM EST active MEDENT ([facility]) Remacade 05/14/2020 12:00:00 AM EST active MEDENT ([facility]) Clotrimazole 10 MG/ML Topical Cream Clotrimazole 1 % Clotrim azole 1 % 04/07/2020 12:00:00 AM EST 1.0 {application} suspended Clotrimazole 1 % eCW1 ([facility]) Clotrimazole 10 MG/ML Topical Cream Clotrimazole 1 % Clotrim azole 1 % 04/07/2020 12:00:00 AM EST 1.0 {application} suspended Clotrimazole 1 % eCW1 ([facility]) Clotrimazole 10 MG/ML Topical Cream Clotrimazole 1 % Clotrim azole 1 % 04/07/2020 12:00:00 AM EST 1.0 {application} active Clotrimazole 1 % eCW1 ([facility]) Clotrimazole 10 MG/ML Topical Cream Clotrimazole 1 % Clotrim azole 1 % 04/07/2020 12:00:00 AM EST 1.0 {application} suspended Clotrimazole 1 % eCW1 ([facility]) Clotrimazole 10 MG/ML Topical Cream Clotrimazole 1 % Clotrim azole 1 % 04/07/2020 12:00:00 AM EST 1.0 {application} suspended Clotrimazole 1 % eCW1 ([facility]) Clotrimazole 10 MG/ML Topical Cream Clotrimazole 1 % Clotrim azole 1 % 04/07/2020 12:00:00 AM EST 1.0 {application} active Clotrimazole 1 % eCW1 ([facility]) Clotrimazole 10 MG/ML Topical Cream Clotrimazole 1 % Clotrim azole 1 % 04/07/2020 12:00:00 AM EST 1.0 {application} active Clotrimazole 1 % eCW1 ([facility]) 25 mg 03/27/2020 12:00:00 AM EST tablet 30 TAKE 1 TABLET BY MOUTH EVERY DAY TAKE 1 TABLET BY MOUTH EVERY DAY SOLD: 03/29/2020 [facility] 25 mg 03/27/2020 12:00:00 AM EST tablet 30 TAKE 1 TABLET BY MOUTH EVERY DAY TAKE 1 TABLET BY MOUTH EVERY DAY SOLD: 04/29/2020 [facility] 25 mg 03/27/2020 12:00:00 AM EST tablet 30 TAKE 1 TABLET BY MOUTH EVERY DAY TAKE 1 TABLET BY MOUTH EVERY DAY SOLD: 05/27/2020 [facility] 1,250 mcg (50,000 unit) 03/02/2020 12:00:00 AM EDT capsule 4 TAKE ONE CAPSULE BY MOUTH ONCE A WEEK TAKE ONE CAPSULE BY MOUTH ONCE A WEEK SOLD: 05/27/2020 [facility] 40 mg 03/02/2020 12:00:00 AM EDT tablet 60 TAKE 1 TABLET BY MOUTH DAILY, TAKE AN EXTRA 1 TABLET IN EVENING NEEDED FOR INCREASED LEG EDEMA TAKE 1 TABLET BY MOUTH DAILY, TAKE AN EXTRA 1 TABLET IN EVENING NEEDED FOR INCREASED LEG EDEMA SOLD: 08/16/2020 [facility] 40 mg 03/02/2020 12:00:00 AM EDT tablet 60 TAKE 1 TABLET BY MOUTH DAILY, TAKE AN EXTRA 1 TABLET IN EVENING NEEDED FOR INCREASED LEG EDEMA TAKE 1 TABLET BY MOUTH DAILY, TAKE AN EXTRA 1 TABLET IN EVENING NEEDED FOR INCREASED LEG EDEMA SOLD: 05/27/2020 [facility] 1,250 mcg (50,000 unit) 03/02/2020 12:00:00 AM EDT capsule 4 TAKE ONE CAPSULE BY MOUTH ONCE A WEEK TAKE ONE CAPSULE BY MOUTH ONCE A WEEK SOLD: 03/05/2020 [facility] 1,250 mcg (50,000 unit) 03/02/2020 12:00:00 AM EDT capsule 4 TAKE ONE CAPSULE BY MOUTH ONCE A WEEK TAKE ONE CAPSULE BY MOUTH ONCE A WEEK SOLD: 04/29/2020 [facility] 40 mg 03/02/2020 12:00:00 AM EDT tablet 60 TAKE 1 TABLET BY MOUTH DAILY, TAKE AN EXTRA 1 TABLET IN EVENING NEEDED FOR INCREASED LEG EDEMA TAKE 1 TABLET BY MOUTH DAILY, TAKE AN EXTRA 1 TABLET IN EVENING NEEDED FOR INCREASED LEG EDEMA SOLD: 10/09/2020 [facility] 40 mg 03/02/2020 12:00:00 AM EDT tablet 60 TAKE 1 TABLET BY MOUTH DAILY, TAKE AN EXTRA 1 TABLET IN EVENING NEEDED FOR INCREASED LEG EDEMA TAKE 1 TABLET BY MOUTH DAILY, TAKE AN EXTRA 1 TABLET IN EVENING NEEDED FOR INCREASED LEG EDEMA SOLD: 06/30/2020 [facility] 40 mg 03/02/2020 12:00:00 AM EDT tablet 60 TAKE 1 TABLET BY MOUTH DAILY, TAKE AN EXTRA 1 TABLET IN EVENING NEEDED FOR INCREASED LEG EDEMA TAKE 1 TABLET BY MOUTH DAILY, TAKE AN EXTRA 1 TABLET IN EVENING NEEDED FOR INCREASED LEG EDEMA SOLD: 03/05/2020 [facility] 40 mg 03/02/2020 12:00:00 AM EDT tablet 60 TAKE 1 TABLET BY MOUTH DAILY, TAKE AN EXTRA 1 TABLET IN EVENING NEEDED FOR INCREASED LEG EDEMA TAKE 1 TABLET BY MOUTH DAILY, TAKE AN EXTRA 1 TABLET IN EVENING NEEDED FOR INCREASED LEG EDEMA SOLD: 04/29/2020 [facility] 1,250 mcg (50,000 unit) 02/11/2020 12:00:00 AM EDT capsule 4 TAKE 1 CAPSULE BY MOUTH ONCE A WEEK TAKE 1 CAPSULE BY MOUTH ONCE A WEEK SOLD: 03/25/2020 [facility] 1,250 mcg (50,000 unit) 02/11/2020 12:00:00 AM EDT capsule 4 TAKE 1 CAPSULE BY MOUTH ONCE A WEEK TAKE 1 CAPSULE BY MOUTH ONCE A WEEK SOLD: 02/19/2020 [facility] 25 mg 01/22/2020 12:00:00 AM EDT tablet 30 TAKE 1 TABLET BY MOUTH EVERY DAY TAKE 1 TABLET BY MOUTH EVERY DAY SOLD: 01/22/2020 [facility] 25 mg 12/16/2019 12:00:00 AM EDT tablet 30 TAKE 1 TABLET BY MOUTH EVERY DAY TAKE 1 TABLET BY MOUTH EVERY DAY SOLD: 02/22/2020 [facility] 1,250 mcg (50,000 unit) 11/17/2019 12:00:00 AM EDT capsule 4 TAKE 1 CAPSULE BY MOUTH ONCE A WEEK TAKE 1 CAPSULE BY MOUTH ONCE A WEEK SOLD: 01/10/2020 [facility] 40 mg 10/23/2019 12:00:00 AM EDT tablet 30 TAKE ONE TABLET BY MOUTH EVERY DAY TAKE ONE TABLET BY MOUTH EVERY DAY SOLD: 02/07/2020 [facility] 40 mg 10/23/2019 12:00:00 AM EDT tablet 30 TAKE ONE TABLET BY MOUTH EVERY DAY TAKE ONE TABLET BY MOUTH EVERY DAY SOLD: 01/10/2020 [facility] Insurance Providers Payer name Policy type / Coverage type Policy ID Covered democrat ID Covered democrat's relationship to guido Policy Guido Plan Information [facility] [address] WI2 [address] [facility] ([facility]) [id number] Family Dependent 30551 [facility] ([facility]) [id number] Family Dependent 69164 [facility] [address] [place]2 [address] [facility]. Commercial [id number] Family Dependent [facility] [address] [place]2 [address] [facility] O [id number] S [id number] [facility] [place] [id number] S [id number] [facility] [address] [place]2 [address] [facility] 229 WI2 229 [facility] [address] [place]2 [address] [facility] [address] [place]2 [address] [facility] [address] [place]2 [address] ANSI-Commercial [id number] ANSI-Commercial [id number] [facility] ([facility]) 1 [id number] Family Dependent [id number] ANSI-Commercial [id number] ANSI-Commercial [id number] ANSI-Commercial [id number] ANSI-Commercial [id number] [facility]. Commercial [id number] Family Dependent BS [place] Commercial [id number] Self 806 [facility] O [id number] P [id number] [facility] [address] [place]2 [address] [facility] [id number] 01 [id number] [facility] [id number] 01 [id number] [employer] [place] PPO 302/307 VYK [id number] WI2 VYK [id number] [employer] [place] PPO 302/307 [id number] WI2 [id number] [facility] [id number] [employer] B [id number] P [id number] [facility] [address] [place]2 [address] Problems, Conditions, and Diagnoses Code Display Name Description Problem Type Effective Dates Data Source(s) K76.0 [id number] Hepatic steatosis Problem 01/29/2021 12:00:0 0 AM EDT eCW1 ([facility]) A04.72 [id number] Clostridium difficile colitis Problem 01/29/2021 12:00:00 AM EDT eCW1 ([facility]) Z23 [id number] Encounter for immunization Problem 12:00:00 AM EDT eCW1 ([facility]) R60.0 [id number] Pedal edema Problem 01/29/2021 12:00:00 AM E DT eCW1 ([facility]) Surgeries/Procedures Procedure Description Date Indications Data Source(s) HEPATITIS A VACCINE ADULT FOR INTRAMUSCULAR USE 2020 12:00:00 AM EDT eCW1 ([facility]) HEPATITIS A VACCINE ADULT FOR INTRAMUSCULAR USE 2020 12:00:00 AM EDT eCW1 ([facility]) Imm: HEPLISAV-B 0.5mL IM Hepatitis B 01/29/2021 12:00: 00 AM EDT eCW1 ([facility]) OFFICE OUTPATIENT VISIT 15 MINUTES 01/11/2021 12:00:00 AM EDT [facility] OFFICE OUTPATIENT NEW 45 MINUTES 01/11/2021 12:00:00 A M EDT [facility] ([facility]) OFFICE OUTPATIENT NEW 30 MINUTES 10/17/2020 12:00:00 A M EDT [facility] Results ID Date Data Source [id number] 01/23/2021 09:44:00 AM EDT [facility] ([facility]) Name Value Range Interpretation Code Description Data Barbara rce(s) Supporting Document(s) Hepatitis B virus surface Ab [Presence] in Serum by Im munoassay Laboratory test result [facility] ([facility] ) Hepatitis B virus surface Ag [Presence] in Serum or Pl asma by Immunoassay Laboratory test result Normal (applies to non-numeric results) [facility] ([facility]) ID Date Data Source [id number] 01/23/2021 09:44:00 AM EDT [facility] ([facility]) Name Value Range Interpretation Code Description Data Barbara rce(s) Supporting Document(s) QuantiFERON Criteria Laboratory test result Norm al (applies to non-numeric results) [facility] ([facility]) . The QuantiFERON-TB Gold Plus result is determined by subtracting the Nil value from either TB antigen (Ag) tube. The mitogen tube serves as a control for the test. QuantiFERON TB1 Ag Value 0.24 IU/ml Normal (applies to non -numeric results) [facility] ([facility], ) QuantiFERON TB2 Ag Value 0.37 IU/ml Normal (applies to non -numeric results) [facility] ([facility]) QuantiFERON Nil Value 0.07 IU/ml Normal (applies to non-nu meric results) [facility] ([facility]) QuantiFERON Mitogen Value Laboratory test result Normal (applies to non- numeric results) [facility] ([facility]) QuantiFERON-TB Gold Plus Laboratory test result Normal (applies to non-numeric results) [facility] ([facility]) The specimen received for QuantiFERON te sting was incubated by the ordering institution. Specific procedures outlined in our Directory of Services and in the package insert for the QuantiFERON Gold (In Tube) test must be followed to enable for proper stimulation of cells for the production of interferon gamma. Chemiluminescence immunoassay methodology Performed at: - [facility] [id number] Pick Up And Delivery Driver: Trinity Vizcarra MD, Phone: [phone] ID Date Data Source [id number] 01/10/2021 12:00:00 AM EDT [facility] Name Value Range Interpretation Code Description Data Barbara rce(s) Supporting Document(s) SARS-CoV2 Rapid Antigen Negative [facility] This lab was ordered by [facility] and reported by [facility]. ID Date Data Source [id number] 06/02/2020 07:00:00 AM EST [facility] ([facility], ) Name Value Range Interpretation Code Description Data Barbara rce(s) Supporting Document(s) Calprotectin [Mass/mass] in Stool Laboratory test result 0-120 Normal (applies to non-numeric results) [facility] ([facility], ) <content>Concentration Interpretatio n Follow-Up</content>
<content><16 - 50 ug/g Normal None</content>
<content>>50 -120 ug/g Borderline Re-evaluate in 4-6 weeks</content>
<content>>120 ug/g Abnormal Repeat as clinically</content>
<content>indicated</content>
<content>Performed at: - [facility]</content>
<content>[address], [place] [id number]</content>
<content>Pick Up And Delivery Driver: Brett Davey MD, Phone: [phone]</content>
<content></content> Elastase.pancreatic [Mass/mass] in Stool 156 Below low normal [facility] ([facility]) <content>Result Units: ug Elast./g</cont ent>
<content>Severe Pancreatic Insufficiency: <100</content>
<content>Moderate Pancreatic Insufficiency: 100 - 200</content>
<content>Normal: >200</content>
<content></content> ID Date Data Source [id number] 05/30/2020 12:27:00 PM EST [facility] ([facility]) Name Value Range Interpretation Code Description Data Barbara rce(s) Supporting Document(s) Cobalamin (Vitamin B12) [Mass/volume] in Serum or Plasma 577 pg/ mL 247-911 Normal (applies to non-numeric results) [facility] ([facility]) VITAMIN B12 NORMAL RANGE NORMAL 247 - 911 PG/ML INDETERMINATE 211 - 246 PG/ML DEFICIENT LESS THAN 211 PG/ML ID Date Data Source [id number] 05/30/2020 12:27:00 PM EST [facility] ([facility]) Name Value Range Interpretation Code Description Data Barbara rce(s) Supporting Document(s) Glucose, Fasting 118 mg/dL 70-100 Above high normal [facility] ([facility]) Creatinine For GFR 0.95 mg/dL 0.70-1.30 Normal (applies to non -numeric results) [facility] ([facility]) Blood Urea Nitrogen 21 mg/dL 7-18 Above high normal [facility] ([facility]) Glomerular Filtration Rate Laboratory test result Normal (applies to non- numeric results) [facility]) <content>Units are mL/min/1.73 m2</content>
<content></content>
<content>Chronic Kidney Disease Staging per NKF:</content>
<content></content>
<content>Stage I & II GFR >=60 Normal to Mildly Decreased</content>
<content>Stage III GFR 30- 59 Moderately Decreased</content>
<content>Stage IV GFR 15-29 Severely Decreased</content>
<content>Stage V GFR <15 Very Little GFR Left</content>
<content>ESRD GFR <15 on ORTHOTIC ASSISTANT</content>
<content></content> Sodium Level 140 meq/L 136-145 Normal (applies to non-numeric res ults) [facility] ([facility], ) Potassium Serum 4.0 meq/L 3.5-5.1 Normal (applies to non-numeric results) [facility] ([facility], ) Chloride Level 106 meq/L 98-107 Normal (applies to non-numeric r esults) [facility] ([facility], ) Carbon Dioxide Level 25 meq/L 21-32 Normal (applies to non-num sung results) [facility] ([facility], ) Calcium Level 8.9 mg/dL 8.5-10.1 Normal (applies to non-numeric re sults) [facility] ([facility], ) Anion Gap 9 meq/L 8-16 Normal (applies to non-numeric resul ts) [facility] ([facility], ) Alt/SGPT 46 U/L 12-78 Normal (applies to non-numeric resul ts) [facility] ([facility], ) Ast/Sgot 20 U/L 7-37 Normal (applies to non-numeric resul ts) [facility] ([facility], ) Alkaline Phosphatase 67 U/L 45-117 Normal (applies to non-num sung results) [facility], ) Bilirubin,Total 0.5 mg/dL 0.2-1.0 Normal (applies to non-numeric results) [facility] ([facility], ) Albumin 4.1 GM/DL 3.2-5.2 Normal (applies to non-numeric resul ts) [facility]) Total Protein 6.9 GM/DL 6.4-8.2 Normal (applies to non-numeric re sults) [facility]) Albumin/Globulin Ratio 1.5 Normal (applies to non-n umeric results) [facility]) ID Date Data Source [id number] 05/30/2020 12:27:00 PM EST [facility] ([facility]) Name Value Range Interpretation Code Description Data Barbara rce(s) Supporting Document(s) White Blood Count 7.1 10 4.0-10.0 Normal (applies to non-numeri c results) [facility]) Red Blood Count 4.83 10 4.30-6.10 Normal (applies to non-numeric results) [facility] ([facility]) Hemoglobin 14.4 g/dL 13.5-17.5 Normal (applies to non-numeric resul ts) [facility]) Mean Corpuscular Volume 90.5 fl 80.0-96.0 Normal ( applies to non-numeric results) [facility]) Hematocrit 43.7 % 42.0-52.0 Normal (applies to non-numeric resul ts) [facility]) Mean Corpuscular HGB Conc 33.0 g/dL 32.0-36.5 Normal (applies to non-numeric results) [facility]) Mean Corpuscular Hemoglobin 29.8 pg 27.0-33.0 Norm al (applies to non-numeric results) [facility]) Red Cell Distribution Width 12.1 % 11.5-14.5 Norm al (applies to non-numeric results) [facility]) Platelet Count, Automated 212 10 150-450 Normal (applies to non-numeric results) [facility]) Neutrophils % 42.7 % 36.0-66.0 Normal (applies to non-numeric re sults) [facility]) Lymph % 41.0 % 24.0-44.0 Normal (applies to non-numeric resul ts) [facility]) [place] % 9.6 % 0.0-5.0 Above high normal [facility] ([facility]) Eos % 5.6 % 0.0-3.0 Above high normal [facility] ([facility]) Baso % 0.8 % 0.0-1.0 Normal (applies to non-numeric resul ts) [facility] ([facility]) Immature Granulocyte % 0.3 % 0-3.0 Normal (applies to non-n umeric results) [facility] ([facility]) Neutrophils # 3.0 10 1.5-8.5 Normal (applies to non-numeric re sults) [facility] ([facility]) Nucleated Red Blood Cell % 0.0 % 0-0 Normal (applies to n on-numeric results) [facility] ([facility]) [place] # 0.7 10 0.0-0.8 Normal (applies to non-numeric resul ts) [facility] ([facility]) Lymph # 2.9 10 1.5-5.0 Normal (applies to non-numeric resul ts) [facility] ([facility]) Baso # 0.1 10 0.0-0.2 Normal (applies to non-numeric resul ts) [facility] ([facility]) Eos # 0.4 10 0.0-0.5 Normal (applies to non-numeric resul ts) [facility] ([facility]) Procedure Social History Code Duration Value Status Description Data Source(s ) Smoking 01/29/2021 12:00:00 AM EDT Former Smoker completed Former Smoker eCW1 ([facility]) Smoking 01/29/2021 12:00:00 AM EDT Former Smoker completed Former Smoker eCW1 ([facility]) Smoking 01/29/2021 12:00:00 AM EDT Former Smoker completed Former Smoker eCW1 ([facility]) Smoking 12/19/2020 12:00:00 AM EDT Former Smoker completed Former Smoker eCW1 ([facility]) Smoking 12/19/2020 12:00:00 AM EDT Former Smoker completed Former Smoker eCW1 ([facility]) Smoking 10/05/2020 12:00:00 AM EDT Former Smoker completed Former Smoker eCW1 ([facility]) Smoking 10/05/2020 12:00:00 AM EDT Former Smoker completed Former Smoker eCW1 ([facility]) Smoking 05/14/2020 12:00:00 AM EST Patient is a former smoker completed Patient is a former smoker [facility] ([facility]) Smoking 04/07/2020 12:00:00 AM EST Former Smoker completed Former Smoker eCW1 ([facility]) Smoking 04/07/2020 12:00:00 AM EST Former Smoker completed Former Smoker eCW1 ([facility]) Smoking 04/07/2020 12:00:00 AM EST Former Smoker completed Former Smoker eCW1 ([facility]) Smoking 02/23/2020 12:00:00 AM EDT - 05/19/2001 12:00:00 AM EST Patient is a former smoker completed Patient is a former smoker [facility] ([facility], ) Vital Signs ID Date Data Source UNK Name Value Range Interpretation Code Description Data Source(s) Body weight 304 [lb_av] 304 [lb_av] eCW1 ([facility]) Body weight 137.89 kg 137.89 kg W1 ([facility]) Body height 75 [in_i] 75 [in_i] eCW1 ([facility]) Body mass index (BMI) [Ratio] 37.99 kg/m2 37.99 kg/m2 eCW1 ([facility]) Heart rate 76 /min 76 /min eCW1 ([facility]) Respiratory rate 18 /min 18 /min eCW1 ([facility]) Body temperature 97.6 [degF] 97.6 [degF] eCW1 ( [facility]) Systolic blood pressure 124 mm[Hg] 124 mm[Hg] e CW1 ([facility]) Diastolic blood pressure 78 mm[Hg] 78 mm[Hg] eCW1 ([facility]) Body weight 136.534 kg 136.534 kg [facility] ([facility]) Body surface area Derived from formula 2.61 m2 2.61 m2 [facility] ([facility]) Systolic blood pressure 136 mm[Hg] 136 mm[Hg] M EDENT ([facility]) Diastolic blood pressure 78 mm[Hg] 78 mm[Hg] [facility] Body height 75 [in_i] 75 [in_i] [facility] ([facility]) 6'3" Body weight 301.00 [lb_av] 301.00 [lb_av] [facility] T ([facility]) Body mass index (BMI) [Ratio] 37.6 kg/m2 37.6 k g/m2 [facility] ([facility]) [place] body weight 196 [lb_av] 196 [lb_av] [facility] T ([facility]) Body weight 305 [lb_av] 305 [lb_av] eCW1 ([facility]) Body weight 138.35 kg 138.35 kg W1 ([facility]) Body height 75 [in_i] 75 [in_i] eCW1 ([facility]) Body mass index (BMI) [Ratio] 38.12 kg/m2 38.12 kg/m2 W1 ([facility]) Heart rate 83 /min 83 /min eCW1 ([facility]) Respiratory rate 18 /min 18 /min eCW1 ([facility]) Body temperature 97.9 [degF] 97.9 [degF] eCW1 ( [facility]) Systolic blood pressure 128 mm[Hg] 128 mm[Hg] e CW1 ([facility]) Diastolic blood pressure 76 mm[Hg] 76 mm[Hg] eCW1 ([facility]) Respiratory rate 18 /min 18 /min eCW1 ([facility]) Body weight 305.6 [lb_av] 305.6 [lb_av] eCW1 ([facility]) Body height 75 [in_i] 75 [in_i] eCW1 ([facility]) Body mass index (BMI) [Ratio] 38.19 kg/m2 38.19 kg/m2 eCW1 ([facility]) Heart rate 59 /min 59 /min eCW1 ([facility]) Body temperature 97.5 [degF] 97.5 [degF] eCW1 ( [facility]) Systolic blood pressure 129 mm[Hg] 129 mm[Hg] e CW1 ([facility]) Diastolic blood pressure 80 mm[Hg] 80 mm[Hg] eCW1 ([facility]) Body height 75 [in_i] 75 [in_i] [facility] ([facility], ) 6'3" Body weight 291.00 [lb_av] 291.00 [lb_av] [facility] T ([facility]) [place] body weight 196 [lb_av] 196 [lb_av] [facility] T ([facility]) Body mass index (BMI) [Ratio] 36.4 kg/m2 36.4 k g/m2 [facility] ([facility]) Body weight 131.998 kg 131.998 kg [facility] ([facility]) Body surface area Derived from formula 2.57 m2 2.57 m2 [facility] ([facility]) Systolic blood pressure 143 mm[Hg] 143 mm[Hg] M EDENT ([facility]) Diastolic blood pressure 73 mm[Hg] 73 mm[Hg] [facility] ([facility]) Body height 75 [in_i] 75 [in_i] [facility] ([facility]) 6'3" Body weight 291.00 [lb_av] 291.00 [lb_av] [facility] T ([facility]) Body mass index (BMI) [Ratio] 36.4 kg/m2 36.4 k g/m2 [facility] [place] body weight 196 [lb_av] 196 [lb_av] [facility] T ([facility]) Body weight 131.998 kg 131.998 kg [facility] ([facility]) Body surface area Derived from formula 2.57 m2 2.57 m2 [facility] ([facility], ) Systolic blood pressure 142 mm[Hg] 142 mm[Hg] M EDENT ([facility], [facility]) Diastolic blood pressure 88 mm[Hg] 88 mm[Hg] [facility] ([facility], [facility]) Heart rate 65 /min 65 /min [facility] ([facility], [facility]) Respiratory rate 18 /min 18 /min [facility] ( [facility], [facility]) Oxygen saturation in Arterial blood by Pulse oximetry 98 % 98 % [facility] ([facility], [facility]) Body temperature 98.6 [degF] 98.6 [degF] [facility] ([facility], [facility]) Body weight 278.00 [lb_av] 278.00 [lb_av] [facility] T ([facility], [facility]) Body weight 273.8 [lb_av] 273.8 [lb_av] eCW1 ([facility]) Body height 75 [in_i] 75 [in_i] eCW1 ([facility]) Body mass index (BMI) [Ratio] 34.22 kg/m2 34.22 kg/m2 W1 ([facility]) Heart rate 53 /min 53 /min eCW1 ([facility]) Respiratory rate 17 /min 17 /min eCW1 ([facility]) Body temperature 97.5 [degF] 97.5 [degF] eCW1 ( [facility]) Systolic blood pressure 118 mm[Hg] 118 mm[Hg] e CW1 ([facility]) Diastolic blood pressure 72 mm[Hg] 72 mm[Hg] eCW1 ([facility]) Systolic blood pressure 128 mm[Hg] 128 mm[Hg] M EDENT ([facility], ) Diastolic blood pressure 78 mm[Hg] 78 mm[Hg] [facility] ([facility], ) Heart rate 64 /min 64 /min [facility] ([facility], ) Oxygen saturation in Arterial blood by Pulse oximetry 97 % 97 % [facility] ([facility], ) Body height 75 [in_i] 75 [in_i] [facility] ([facility]) 6'3" Body weight 281.00 [lb_av] 281.00 [lb_av] [facility] Body mass index (BMI) [Ratio] 35.1 kg/m2 35.1 k g/m2 [facility] ([facility]) [place] body weight 196 [lb_av] 196 [lb_av] [facility] Body weight 127.462 kg 127.462 kg [facility] ([facility]) Body surface area Derived from formula 2.54 m2 2.54 m2 [facility] ([facility]) Patient Treatment Plan of Care Planned Activity Planned Date Details Description Data Source (s) Augmentin 875-125 MG 12/19/2020 12:00:00 AM EDT eCW1 ([facility]) Augmentin 875-125 MG 12/19/2020 12:00:00 AM EDT eCW1 ([facility]) Clotrimazole 10 MG/ML Topical Cream 04/07/2020 12:00:00 AM EST eCW1 ([facility]) Clotrimazole 10 MG/ML Topical Cream 04/07/2020 12:00:00 AM EST [facility] [facility] Clotrimazole 10 MG/ML Topical Cream 04/07/2020 12:00:00 AM EST [id number] ([facility])
--- OUTSIDE RECORDS SUMMARY | 2021-03-11 02:28 | CCD ---
Author Author [facility] Organization [facility] Address Unknown Phone Unavailable Support Name Relationship Address Phone INDIANRIV* Next Of Kin [address] [facility] [address] [place] [address] [facility] Next Of Kin [address] [place] [address] [facility] Next Of Kin 6 1[address] [place] [address] [facility] MEDDA Next Of Kin [address] [place] [address] [employer] Next Of Kin [address] [place], [place] [id number] Care Team Providers Care Cardiology Clinical Nurse Specialist Name Role Phone TAURUS WALTERS MD Unavailable Unavailable REINWINSOME, TAURUS CARLISLE Unavailable Unavailable REINDL, TAURUS CARLISLE Unavailable Unavailable REINDL, TAURUS CARLISLE Unavailable Unavailable ROMEO, TAURUS CARLISLE [...] Unavailable Unavailable REINDL, TAURUS CARLISLE Unavailable Unavailable REINTAURUS LOCKETT MD Unavailable Unavailable REINTAURUS LOCKETT MD Unavailable Unavailable REINTAURUS LOCKETT MD Unavailable Unavailable REINTAURUS LOCKETT MD Unavailable Unavailable TAURUS WALTERS MD Unavailable Unavailable TAURUS WALTERS MD Unavailable Unavailable REINWINSOME, TAURUS CARLISLE Unavailable Unavailable REINWINSOME, TAURUS CARLISLE Unavailable Unavailable ROMEO, TAURUS CARLISLE Unavailable Unavailable ROMEO, TAURUS CARLISLE Unavailable Unavailable ROMEO, TAURUS CARLISLE Unavailable Unavailable TAURUS WALTERS MD Unavailable Unavailable ROMEO, TAURUS CARLISLE Unavailable Unavailable ROMEO, TAURUS CARLISLE Unavailable Unavailable ROMEO, TAURUS CARLISLE Unavailable Unavailable TAURUS WALTERS MD Unavailable Unavailable REINWINSOME, TAURUS CARLISLE Unavailable Unavailable ROMEO, TAURUS CARLISLE Unavailable Unavailable TAURUS WALTERS MD Unavailable Unavailable TAURUS WALTERS MD Unavailable Unavailable TAURUS WALTERS MD Unavailable Unavailable TAURUS WALTERS MD Unavailable Unavailable TAURUS WALTERS MD Unavailable Unavailable TAURUS WALTERS MD Unavailable Unavailable Peggy Auguste MD Unavailable [...] Unavailable Unavailable Peggy Auguste MD Unavailable Unavailable Shiekh, Ayanna Kacey PA Unavailable Unavailable Sheikh, Ayanna [...] is protected by Article 27-F of the [facility] Public Health law. If you continue you may have access to information: Regarding HIV / AIDS; Provided by facilities licensed or operated by the [facility] Office of Mental Health; or Provided by the [facility] Office for People With Developmental Disabilities. If such information is present, then the following [facility] mandated warning applies: This information has been [...] law may result in a fine or retirement sentence or both. A general authorization for the release of medical or other information is NOT sufficient authorization for further disc losure. Family History Family Member Name Family Member Gender Family Member Status Date o f Status Description Data Source(s) Unknown Unknown Problem MEDENT ([facility]) Unknown Female Problem (finding) 06/11/2017 12:00:00 AM EST NextGen ([facility]) Unknown Female Problem (finding) 06/11/2017 12:00:00 AM EST [facility] ([facility]) Unknown Female Problem (finding) 06/11/2017 12:00:00 AM EST [facility] ([facility]) Unknown Female Problem MEDENT ([facility] Encounters Encounter Providers Location Date Indications Data Source(s ) Unknown [address] [facility] [address] [address] 02/26/2021 12:00:00 AM EDT eCW1 ([facility] access hospital) Outpatient [address] [facility] [place] [address] 02/26/2021 12:00:00 AM EDT eCW1 (Critical access hospital) Outpatient [address] [facility] [place] [address] 01/29/2021 12:00:00 AM EDT eCW1 (Critical access hospital) Outpatient Attender: TAURUS Orozco/Mervat/Ketan/Silverio lockett 01/11/2021 08:30:00 AM EDT [facility] [place] [address] [facility] [address] [place] [address] 12/19/2020 12:00:00 AM EDT [facility]CW1 [facility]) Unknown [address] [facility] [place] [address] 12/19/2020 12:00:00 AM EDT eCW1 ([facility]) Unknown [address] [facility] [place] [address] 11/06/2020 12:00:00 AM EDT eCW1 ([facility]) Outpatient Attender: Taurus Orozco/Mervat/Ketan/Rein dl 10/17/2020 11:00:00 AM EDT MEDENT ([facility] Outpatient [address] [facility] [place] [address] 10/05/2020 12:00:00 AM EDT eCW1 ([facility]) Unknown [address] [facility] [address] 07/10/2020 12:00:00 AM EST eCW1 ([facility]) Attender: JAMES WHITE MD [facility] 05/30/2020 07:08:00 PM EST - 05/30/2020 07:08:00 PM EST NextGen ( [facility]) Outpatient Attender: TAURUS Orozco/Mervat/Ketan/Rein dl 05/30/2020 10:30:00 AM EST MEDENT ([facility], ) Outpatient Attender: Kacey blue 05/14/2020 12:20:00 PM EST MEDENT ([facility]) Unknown [address] [facility] [address] 05/09/2020 12:00:00 AM EST eCW1 ([facility]) Outpatient [address] [facility] [place] [address] 04/07/2020 12:00:00 AM EST eCW1 ([facility]) Unknown [address] [facility] [address] [address] 02/25/2020 12:00:00 AM EDT eCW1 (Critical access hospital) Outpatient Attender: Peggy Orozco/Mervat/Ketan/Rex villar 02/23/2020 02:30:00 PM EDT MEDENT ([facility]) Immunizations Vaccine Date Status Description Data Source(s) Hep A, adult 02/26/2021 10:38:00 AM EDT completed e CW1 ([facility]) Hep A, adult 02/26/2021 10:38:00 AM EDT completed e CW1 ([facility]) COVID-19 VACCINE Moderna 02/19/2021 12:00:00 AM EDT completed [facility] Vaccine Series Complete: YESThis Data wa s Submitted to [facility] Via [employer]. Hep A, adult 01/29/2021 10:10:00 AM EDT completed e CW1 ([facility]) Hepatitis B 0.5mL HEPLISAV-B 01/29/2021 10:10:00 AM EDT completed eCW1 ([facility]) Hep A, adult 01/29/2021 10:10:00 AM EDT completed e CW1 ([facility]) Hepatitis B 0.5mL HEPLISAV-B 01/29/2021 10:10:00 AM EDT completed eCW1 ([facility]) Hep A, adult 01/29/2021 10:10:00 AM EDT completed e CW1 ([facility]) Hepatitis B 0.5mL HEPLISAV-B 01/29/2021 10:10:00 AM EDT completed eCW1 ([facility]) COVID-19 VACCINE Moderna 06/14/2020 12:00:00 AM EST completed [facility] Vaccine Series Complete: YESThis Data wa s Submitted to [facility] Via [employer]. COVID-19 VACCINE Moderna 05/17/2020 12:00:00 AM EST completed [facility] Vaccine Series Complete: NOThis Data was Submitted to [facility] Via [employer]. IIV3. This is one of two codes replacing CVX 15, which is being retired. 02/25/2020 08:59:00 AM EDT completed eCW1 ([facility]) IIV3. This is one of two codes replacing CVX 15, which is being retired. 02/25/2020 08:59:00 AM EDT completed eCW1 ([facility]) IIV3. This is one of two codes replacing CVX 15, which is being retired. 02/25/2020 08:59:00 AM EDT completed eCW1 ([facility]) IIV3. This is one of two codes replacing CVX 15, which is being retired. 02/25/2020 08:59:00 AM EDT completed eCW1 ([facility]) IIV3. This is one of two codes replacing CVX 15, which is being retired. 02/25/2020 08:59:00 AM EDT completed eCW1 ([facility]) IIV3. This is one of two codes replacing CVX 15, which is being retired. 02/25/2020 08:59:00 AM EDT completed eCW1 ([facility]) IIV3. This is one of two codes replacing CVX 15, which is being retired. 02/25/2020 08:59:00 AM EDT completed eCW1 ([facility]) IIV3. This is one of two codes replacing CVX 15, which is being retired. 02/25/2020 08:59:00 AM EDT completed eCW1 ([facility]) IIV3. This is one of two codes replacing CVX 15, which is being retired. 02/25/2020 08:59:00 AM EDT completed eCW1 ([facility]) IIV3. This is one of two codes replacing CVX 15, which is being retired. 02/25/2020 08:59:00 AM EDT completed eCW1 ([facility]) INFLUENZA VIRUS VACCINE QUADRIVAL [id number](6 MOS AND UP)/PF 01/29/2020 12:00:00 AM EDT completed [facility] Medications Medication Brand Name Start Date [...] {tablet } active Augmentin 875-125 MG eCW1 ([facility]) Amoxicillin 875 MG / Clavulanate 125 MG Oral Tablet 87 5-125 mg AMOXICILLIN/POTASSIUM CLAV 12/19/2020 12:00:00 AM EDT tablet 14 TAKE ONE TABLET BY MOUTH TWICE A DAY FOR 7 DAYS TAKE ONE TABLET BY MOUTH TWICE A DAY FOR 7 DAYS SOLD: 12/19/2020 [facility] Augmentin 875-125 MG UNK 12/19/2020 12:00:00 AM EDT 1.0 {tablet } active Augmentin 875-125 MG eCW1 ([facility]) 1,250 mcg (50,000 unit) 11/07/2020 12:00:00 AM [...] & 1 CAPSULE WITH SNACKS SOLD: 06/15/2020 [facility] Am[facility]ases 376905 UNT / Endopeptidases 114 000 UNT / Lipase 50362 UNT Delayed Release Oral Capsule [Creon] Creon 06/12/2020 12:00:00 AM EST completed MEDENT ([facility], ) Inflectra Inflectra 05/30/2020 12:00:00 AM EST act raoul MEDENT ([facility], ) Multi Vit 05/14/2020 12:00:00 AM EST active MEDENT ([facility]) Remacade 05/14/2020 12:00:00 AM EST active MEDENT ([facility], [facility]) Clotrimazole 10 MG/ML Topical Cream Clotrimazole 1 % Clotrim azole 1 % 04/07/2020 12:00:00 AM EST 1.0 {application} suspended Clotrimazole 1 % eCW1 ([facility]) Clotrimazole 10 MG/ML Topical Cream Clotrimazole 1 % Clotrim azole 1 % 04/07/2020 12:00:00 AM EST 1.0 {application} suspended Clotrimazole 1 % eCW1 ([facility]) Clotrimazole 10 MG/ML Topical Cream Clotrimazole 1 % Clotrim azole 1 % 04/07/2020 12:00:00 AM EST 1.0 {application} active Clotrimazole 1 % eCW1 ([facility]) Clotrimazole 10 MG/ML Topical Cream Clotrimazole 1 % Clotrim azole 1 % 04/07/2020 12:00:00 AM EST 1.0 {application} suspended Clotrimazole 1 % eCW1 ([facility]) Clotrimazole 10 MG/ML Topical Cream Clotrimazole 1 % Clotrim azole 1 % 04/07/2020 12:00:00 AM EST 1.0 {application} suspended Clotrimazole 1 % eCW1 ([facility]) Clotrimazole 10 MG/ML Topical Cream Clotrimazole 1 % Clotrim azole 1 % 04/07/2020 12:00:00 AM EST 1.0 {application} active Clotrimazole 1 % eCW1 ([facility]) Clotrimazole 10 MG/ML Topical Cream Clotrimazole 1 % Clotrim azole 1 % 04/07/2020 12:00:00 AM EST 1.0 {application} active Clotrimazole 1 % eCW1 ([facility]) 25 mg 03/27/2020 12:00:00 AM EST [...] relationship to guido Policy Guido Plan Information [facility] [address] [facility] Maintenance Organization ([facility]) 0022 9 [id number] Family Dependent [address] [facility] ([facility]) 0011 9 [id number] Family Dependent [address] [facility] [address] WI2 [address] [facility]. Commercial [id number] Family Dependent [facility] [address] WI2 [address] [facility] [place] [address] [id number] S [address] [facility] [place] [address] [id number] S [id number] [facility] [address] WI2 [address] [facility] 229 WI2 229 [facility] [address] [place] [address] [facility] [address] [place]2 [address] [facility] [address] WI2 [address] ANSI-Commercial [id number] ANSI-Commercial [id number] [facility] ([facility]) 0011 9 [id number] Family Dependent [address] ANSI-Commercial [id number] ANSI-Commercial [id number] ANSI-Commercial [id number] ANSI-Commercial [id number] [facility]. Commercial [id number] Family Dependent BS [place] Commercial 806 [id number] Self 806 [facility] O [address] [id number] P 16049 [facility] [address] WI2 [address] [facility] [address] 01 [address] [facility] [address] 01 0 0104 [employer] [place] PPO 302/307 VYK [id number] WI2 VYK [id number] 16554 [employer] [place] PPO 302/307 [id number] WI2 [id number] [facility] [address] 25089 23186 [employer] B [id number] P [id number] [id number] [facility] [address] WI2 [address] Problems, Conditions, and Diagnoses Code Display Name Description Problem Type Effective Dates Data Source(s) K76.0 [id number] Hepatic steatosis Problem 01/29/2021 12:00:0 0 AM EDT eCW1 ([facility]) A04.72 [id number] Clostridium difficile colitis Problem 01/29/2021 12:00:00 AM EDT eCW1 ([facility]) Z23 [id number] Encounter for immunization Problem 12:00:00 AM EDT eCW1 ([facility]) R60.0 [id number] Pedal edema Problem 01/29/2021 12:00:00 AM E DT eCW1 ([facility]) Surgeries/Procedures Procedure Description Date Indications Data Source(s) HEPATITIS A VACCINE ADULT FOR INTRAMUSCULAR USE 2020 12:00:00 AM EDT eCW1 ([facility]) HEPATITIS A VACCINE ADULT FOR INTRAMUSCULAR USE 2020 12:00:00 AM EDT eCW1 ([facility]) Imm: HEPLISAV-B 0.5mL IM Hepatitis B 01/29/2021 12:00: 00 AM EDT eCW ([facility]) OFFICE OUTPATIENT VISIT 15 MINUTES 01/11/2021 12:00:00 AM EDT [facility] ([facility]) OFFICE OUTPATIENT NEW 45 MINUTES 01/11/2021 12:00:00 A M EDT [facility] ([facility]) OFFICE OUTPATIENT NEW 30 MINUTES 10/17/2020 12:00:00 A M EDT [facility] ([facility]) Results ID Date Data Source [id number] 01/23/2021 09:44:00 AM EDT [facility] ([facility]) Name Value Range Interpretation Code Description Data Barbara rce(s) Supporting Document(s) Hepatitis B virus surface Ab [Presence] in Serum by Im munoassay Laboratory test result [facility] ([facility]ice, ) Hepatitis B virus surface Ag [Presence] in Serum or Pl asma by Immunoassay Laboratory test result Normal (applies to non-numeric results) [facility] ([facility]) ID Date Data Source [id number] 01/23/2021 09:44:00 AM EDT [facility] ([facility]) Name Value Range Interpretation Code Description Data Barbara rce(s) Supporting Document(s) QuantiFERON Criteria Laboratory test result Norm al (applies to non-numeric results) [facility] ([facility]) . The QuantiFERON-TB Gold Plus result is determined by subtracting the Nil value from either TB antigen (Ag) tube. The mitogen tube serves as a control for the test. QuantiFERON TB1 Ag Value 0.24 IU/ml Normal (applies to non -numeric results) [facility] ([facility], ) QuantiFERON TB2 Ag Value 0.37 IU/ml Normal (applies to non -numeric results) [facility] ([facility], ) QuantiFERON Nil Value 0.07 IU/ml Normal (applies to non-nu meric results) [facility] ([facility]) QuantiFERON Mitogen Value Laboratory test result Normal (applies to non- numeric results) [facility] ([facility]) QuantiFERON-TB Gold Plus Laboratory test result Normal (applies to non-numeric results) [facility] ([facility]) The specimen received for QuantiFERON te sting was incubated by the ordering institution. Specific procedures outlined in our Directory of Services and in the package insert for the QuantiFERON Gold (In Tube) test must be followed to enable for proper stimulation of cells for the production of interferon gamma. Chemiluminescence immunoassay methodology Performed at: RN - [facility] [address] [id number] Host: Trinity Vizcarra MD, Phone: [phone] ID Date Data Source [id number] 01/10/2021 12:00:00 AM EDT [facility] Name Value Range Interpretation Code Description Data Barbara rce(s) Supporting Document(s) SARS-CoV2 Rapid Antigen Negative [facility] This lab was ordered by [facility] and reported by [facility]. ID Date Data Source [id number] 06/02/2020 07:00:00 AM EST [facility] ([facility], ) Name Value Range Interpretation Code Description Data Barbara rce(s) Supporting Document(s) Calprotectin [Mass/mass] in Stool Laboratory test result 0-120 Normal (applies to non-numeric results) [facility] ([facility], ) <content>Concentration Interpretatio n Follow-Up</content>
<content><16 - 50 ug/g Normal None</content>
<content>>50 -120 ug/g Borderline Re-evaluate in 4-6 weeks</content>
<content>>120 ug/g Abnormal Repeat as clinically</content>
<content>indicated</content>
<content>Performed at: [facility]</content>
<content>[address] [place], [place] [id number]</content>
<content>Host: Brett Davey MD, Phone: [phone]</content>
<content></content> Elastase.pancreatic [Mass/mass] in Stool 156 Below low normal [facility], [facility] <content>Result Units: ug Elast./g</cont ent>
<content>Severe Pancreatic Insufficiency: <100</content>
<content>Moderate Pancreatic Insufficiency: 100 - 200</content>
<content>Normal: >200</content>
<content></content> ID Date Data Source [id number] 05/30/2020 12:27:00 PM EST [facility] ([facility]) Name Value Range Interpretation Code Description Data Barbara rce(s) Supporting Document(s) Cobalamin (Vitamin B12) [Mass/volume] in Serum or Plasma 577 pg/ mL 247-911 Normal (applies to non-numeric results) [facility] ([facility]) VITAMIN B12 NORMAL RANGE NORMAL 247 - 911 PG/ML INDETERMINATE 211 - 246 PG/ML DEFICIENT LESS THAN 211 PG/ML ID Date Data Source [id number] 05/30/2020 12:27:00 PM EST [facility] ([facility]) Name Value Range Interpretation Code Description Data Barbara rce(s) Supporting Document(s) Glucose, Fasting 118 mg/dL 70-100 Above high normal [facility] ([facility]) Creatinine For GFR 0.95 mg/dL 0.70-1.30 Normal (applies to non -numeric results) [facility] ([facility]) Blood Urea Nitrogen 21 mg/dL 7-18 Above high normal [facility]) Glomerular Filtration Rate Laboratory test result Normal (applies to non- numeric results) [facility] ([facility]) <content>Units are mL/min/1.73 m2</content>
<content></content>
<content>Chronic Kidney Disease Staging per NKF:</content>
<content></content>
<content>Stage I & II GFR >=60 Normal to Mildly Decreased</content>
<content>Stage III GFR 30- 59 Moderately Decreased</content>
<content>Stage IV GFR 15-29 Severely Decreased</content>
<content>Stage V GFR <15 Very Little GFR Left</content>
<content>ESRD GFR <15 on DINING CAR CONDUCTOR</content>
<content></content> Sodium Level 140 meq/L 136-145 Normal (applies to non-numeric res ults) [facility] ([facility], ) Potassium Serum 4.0 meq/L 3.5-5.1 Normal (applies to non-numeric results) [facility] ([facility], ) Chloride Level 106 meq/L 98-107 Normal (applies to non-numeric r esults) [facility] ([facility], ) Carbon Dioxide Level 25 meq/L 21-32 Normal (applies to non-num sung results) [facility] ([facility], ) Calcium Level 8.9 mg/dL 8.5-10.1 Normal (applies to non-numeric re sults) [facility] ([facility], ) Anion Gap 9 meq/L 8-16 Normal (applies to non-numeric resul ts) [facility] ([facility], ) Alt/SGPT 46 U/L 12-78 Normal (applies to non-numeric resul ts) [facility], ) Ast/Sgot 20 U/L 7-37 Normal (applies to non-numeric resul ts) [facility] ([facility], ) Alkaline Phosphatase 67 U/L 45-117 Normal (applies to non-num sung results) [facility] ([facility], ) Bilirubin,Total 0.5 mg/dL 0.2-1.0 Normal (applies to non-numeric results) [facility] ([facility]) Albumin 4.1 GM/DL 3.2-5.2 Normal (applies to non-numeric resul ts) [facility]) Total Protein 6.9 GM/DL 6.4-8.2 Normal (applies to non-numeric re sults) [facility]) Albumin/Globulin Ratio 1.5 Normal (applies to non-n umeric results) [facility]) ID Date Data Source [id number] 05/30/2020 12:27:00 PM EST [facility] ([facility]) Name Value Range Interpretation Code Description Data Barbara rce(s) Supporting Document(s) White Blood Count 7.1 10 4.0-10.0 Normal (applies to non-numeri c results) [facility]) Red Blood Count 4.83 10 4.30-6.10 Normal (applies to non-numeric results) [facility]) Hemoglobin 14.4 g/dL 13.5-17.5 Normal (applies to non-numeric resul ts) [facility]) Mean Corpuscular Volume 90.5 fl 80.0-96.0 Normal ( applies to non-numeric results) [facility]) Hematocrit 43.7 % 42.0-52.0 Normal (applies to non-numeric resul ts) [facility]) Mean Corpuscular HGB Conc 33.0 g/dL 32.0-36.5 Normal (applies to non-numeric results) [facility]) Mean Corpuscular Hemoglobin 29.8 pg 27.0-33.0 Norm al (applies to non-numeric results) [facility]) Red Cell Distribution Width 12.1 % 11.5-14.5 Norm al (applies to non-numeric results) [facility]) Platelet Count, Automated 212 10 150-450 Normal (applies to non-numeric results) [facility]) Neutrophils % 42.7 % 36.0-66.0 Normal (applies to non-numeric re sults) [facility]) Lymph % 41.0 % 24.0-44.0 Normal (applies to non-numeric resul ts) [facility] ([facility]) [place] % 9.6 % 0.0-5.0 Above high normal [facility] ([facility]) Eos % 5.6 % 0.0-3.0 Above high normal [facility] ([facility]) Baso % 0.8 % 0.0-1.0 Normal (applies to non-numeric resul ts) [facility] ([facility]) Immature Granulocyte % 0.3 % 0-3.0 Normal (applies to non-n umeric results) [facility] ([facility]) Neutrophils # 3.0 10 1.5-8.5 Normal (applies to non-numeric re sults) [facility] ([facility]) Nucleated Red Blood Cell % 0.0 % 0-0 Normal (applies to n on-numeric results) MEDENT ([facility]) [place] # 0.7 10 0.0-0.8 Normal (applies to non-numeric resul ts) [facility]ENT ([facility]) Lymph # 2.9 10 1.5-5.0 Normal (applies to non-numeric resul ts) [facility] ([facility]) Baso # 0.1 10 0.0-0.2 Normal (applies to non-numeric resul ts) [facility] ([facility]) Eos # 0.4 10 0.0-0.5 Normal (applies to non-numeric resul ts) [facility] ([facility]) Procedure Social History Code Duration Value Status Description Data Source(s ) Smoking 01/29/2021 12:00:00 AM EDT Former Smoker completed Former Smoker eCW1 ([facility]) Smoking 01/29/2021 12:00:00 AM EDT Former Smoker completed Former Smoker eCW1 ([facility]) Smoking 01/29/2021 12:00:00 AM EDT Former Smoker completed Former Smoker eCW1 ([facility]) Smoking 12/19/2020 12:00:00 AM EDT Former Smoker completed Former Smoker eCW1 ([facility]) Smoking 12/19/2020 12:00:00 AM EDT Former Smoker completed Former Smoker eCW1 ([facility]) Smoking 10/05/2020 12:00:00 AM EDT Former Smoker completed Former Smoker eCW1 ([facility]) Smoking 10/05/2020 12:00:00 AM EDT Former Smoker completed Former Smoker eCW1 ([facility]) Smoking 05/14/2020 12:00:00 AM EST Patient is a former smoker completed Patient is a former smoker MEDENT ([facility]) Smoking 04/07/2020 12:00:00 AM EST Former Smoker completed Former Smoker eCW1 ([facility]) Smoking 04/07/2020 12:00:00 AM EST Former Smoker completed Former Smoker eCW1 ([facility]) Smoking 04/07/2020 12:00:00 AM EST Former Smoker completed Former Smoker eCW1 ([facility]) Smoking 02/23/2020 12:00:00 AM EDT - 05/19/2001 12:00:00 AM EST Patient is a former smoker completed Patient is a former smoker MEDENT ([facility] ) Vital Signs ID Date Data Source UNK Name Value Range Interpretation Code Description Data Source(s) Body weight 304 [lb_av] 304 [lb_av] eCW1 ([facility]) Body weight 137.89 kg 137.89 kg eCW1 ([facility]) Body height 75 [in_i] 75 [in_i] eCW1 ([facility]) Body mass index (BMI) [Ratio] 37.99 kg/m2 37.99 kg/m2 eCW1 ([facility]) Heart rate 76 /min 76 /min eCW1 ([facility]) Respiratory rate 18 /min 18 /min eCW1 ([facility]) Body temperature 97.6 [degF] 97.6 [degF] eCW1 ( [facility]) Systolic blood pressure 124 mm[Hg] 124 mm[Hg] e CW1 ([facility]) Diastolic blood pressure 78 mm[Hg] 78 mm[Hg] eCW1 ([facility]) Body surface area Derived from formula 2.61 m2 2.[address] [facility] Body weight 136.534 kg 136.534 [address] [facility] Systolic blood pressure 136 mm[Hg] 136 mm[Hg] M EDENT ([facility]) Diastolic blood pressure 78 mm[Hg] 78 mm[Hg] [facility] Body height 75 [in_i] 75 [in_i] [facility] ([facility]) 6'3" Body weight 301.00 [lb_av] 301.00 [lb_av] MEDEN T ([facility]) Body mass index (BMI) [Ratio] 37.6 kg/m2 37.6 k g/m2 [facility] ([facility]) [place] body weight 196 [lb_av] 196 [lb_av] MEDEN T ([facility]) Body weight 305 [lb_av] 305 [lb_av] eCW1 ([facility]) Body weight 138.35 kg 138.35 kg W1 ([facility]) Body height 75 [in_i] 75 [in_i] eCW1 ([facility]) Body mass index (BMI) [Ratio] 38.12 kg/m2 38.12 kg/m2 W1 ([facility]) Heart rate 83 /min 83 /min eCW1 ([facility]) Respiratory rate 18 /min 18 /min eCW1 ([facility]) Body temperature 97.9 [degF] 97.9 [degF] eCW1 ( [facility]) Systolic blood pressure 128 mm[Hg] 128 mm[Hg] e CW1 ([facility]) Diastolic blood pressure 76 mm[Hg] 76 mm[Hg] eCW1 ([facility]) Respiratory rate 18 /min 18 /min eCW1 ([facility]) Body temperature 97.5 [degF] 97.5 [degF] eCW1 ( [facility]) Systolic blood pressure 129 mm[Hg] 129 mm[Hg] e CW1 ([facility]) Diastolic blood pressure 80 mm[Hg] 80 mm[Hg] eCW1 ([facility]) Body weight 305.6 [lb_av] 305.6 [lb_av] eCW1 ([facility]) Body height 75 [in_i] 75 [in_i] eCW1 ([facility]) Body mass index (BMI) [Ratio] 38.19 kg/m2 38.19 kg/m2 eCW1 ([facility]) Heart rate 59 /min 59 /min eCW1 ([facility]) Body height 75 [in_i] 75 [in_i] MEDENT ([facility], ) 6'3" Body weight 291.00 [lb_av] 291.00 [lb_av] MEDEN T ([facility], ) Body mass index (BMI) [Ratio] 36.4 kg/m2 36.4 k g/m2 [facility] ([facility], ) [place] body weight 196 [lb_av] 196 [lb_av] MEDEN T ([facility], ) Body weight 131.998 kg 131.998 kg [facility] ([facility]) Body surface area Derived from formula 2.57 m2 2.57 m2 [facility] ([facility]) Systolic blood pressure 143 mm[Hg] 143 mm[Hg] M EDENT ([facility], ) Diastolic blood pressure 73 mm[Hg] 73 mm[Hg] MEDENT ([facility], ) Body height 75 [in_i] 75 [in_i] MEDENT ([facility], ) 6'3" Body weight 291.00 [lb_av] 291.00 [lb_av] MEDEN T ([facility]) Body mass index (BMI) [Ratio] 36.4 kg/m2 36.4 k g/[facility] [place] body weight 196 [lb_av] 196 [lb_av] MEDEN T ([facility], ) Body weight 131.998 kg 131.998 kg MEDENT ([facility], ) Body surface area Derived from formula 2.57 m2 2.57 m2 MEDENT ([facility], ) Systolic blood pressure 142 mm[Hg] 142 mm[Hg] M EDENT ([facility]) Diastolic blood pressure 88 mm[Hg] 88 mm[Hg] MEDENT ([facility]) Heart rate 65 /min 65 /min MEDENT ([facility], [facility]) Respiratory rate 18 /min 18 /min MEDENT ( [facility]) Oxygen saturation in Arterial blood by Pulse oximetry 98 % 98 % MED[facility] ([facility]) Body temperature 98.6 [degF] 98.6 [degF] MED[facility] ([facility]) Body weight 278.00 [lb_av] 278.00 [lb_av] MEDEN T ([facility], [facility]) Body weight 273.8 [lb_av] 273.8 [lb_av] eCW1 ([facility]) Body height 75 [in_i] 75 [in_i] eCW1 ([facility]) Body mass index (BMI) [Ratio] 34.22 kg/m2 34.22 kg/m2 W1 ([facility]) Heart rate 53 /min 53 /min eCW1 ([facility]) Respiratory rate 17 /min 17 /min eCW1 ([facility]) Body temperature 97.5 [degF] 97.5 [degF] eCW1 ( [facility]) Systolic blood pressure 118 mm[Hg] 118 mm[Hg] e CW1 ([facility]) Diastolic blood pressure 72 mm[Hg] 72 mm[Hg] eCW1 ([facility]) Systolic blood pressure 128 mm[Hg] 128 mm[Hg] M EDENT ([facility], ) Diastolic blood pressure 78 mm[Hg] 78 mm[Hg] MED[facility] ([facility], ) Heart rate 64 /min 64 /[facility] Oxygen saturation in Arterial blood by [facility]ulse oximetry 97 % 97 % [facility]) Body height 75 [in_i] 75 [in_i] [facility] ([facility]) 6'3" Body weight 281.00 [lb_av] 281.00 [lb_av] [facility] Body mass index (BMI) [Ratio] 35.1 kg/m2 35.1 k g/m2 [facility] ([facility]) [place] body weight 196 [lb_av] 196 [lb_av] [facility] Body weight 127.462 kg 127.462 kg [facility] ([facility]) Body surface area Derived from formula 2.54 m2 2.54 m2 [facility] ([facility]) Patient Treatment Plan of Care Planned Activity Planned Date Details Description Data Source (s) Augmentin 875-125 MG 12/19/2020 12:00:00 AM EDT eCW1 ([facility]) Augmentin 875-125 MG 12/19/2020 12:00:00 AM EDT eCW1 ([facility]) Clotrimazole 10 MG/ML Topical Cream 04/07/2020 12:00:00 AM EST eCW1 ([facility]) Clotrimazole 10 MG/ML Topical Cream 04/07/2020 12:00:00 AM EST eCW1 ([facility]) Clotrimazole 10 MG/ML Topical Cream 04/07/2020 12:00:00 AM EST eCW1 ([facility])
[2021-03-11] MEDS ORDERED: KETOROLAC 30 MG/ML 1ML VIAL IV ONE (02:40)
[2021-03-11] MEDS ORDERED: ONDANSETRON 4MG/2ML VIAL IV PRN (02:40)
[2021-03-11] MEDS: GASTROGRAFIN SOLUTION 30ML PO SCH ×2 (03:24→04:00)
[2021-03-11 03:26] LABS: BASO # 0.1 10^3/uL (0.0-0.2); BASO % 0.7 % (0.0-1.0); EOS # 0.2 10^3/uL (0.0-0.5); EOS % 2.2 % (0.0-3.0); HEMATOCRIT 43.4 % (42.0-52.0); HEMOGLOBIN 14.6 g/dl (13.5-17.5); LYMPH # 2.2 10^3/uL (1.5-5.0); LYMPH % 26.7 % (24.0-44.0); MEAN CORPUSCULAR HEMOGLOBIN 29.9 pg (27.0-33.0); MEAN CORPUSCULAR HGB CONC 33.6 g/dl (32.0-36.5); MEAN CORPUSCULAR VOLUME 88.9 fl (80.0-96.0); MONO # 0.7 10^3/uL (0.0-0.8); MONO % 8.2 % (2.0-8.0); NEUTROPHILS # 5.2 10^3/uL (1.5-8.5); PLATELET COUNT, AUTOMATED 194 10^3/uL (150-450); RED BLOOD COUNT 4.88 10^6/uL (4.30-6.10); WHITE BLOOD COUNT 8.3 10^3/uL (4.0-10.0)
[2021-03-11 03:59] LABS: ALBUMIN 3.7 GM/DL (3.2-5.2); ALT/SGPT 346 U/L (12-78); BILIRUBIN,TOTAL 0.4 MG/DL (0.2-1.0); BLOOD UREA NITROGEN 26 MG/DL (7-18); CALCIUM LEVEL 9.3 MG/DL (8.5-10.1); CARBON DIOXIDE LEVEL 27 MEQ/L (21-32); CHLORIDE LEVEL 104 MEQ/L (98-107); GLOMERULAR FILTRATION RATE > 60.0 (>56); GLUCOSE, FASTING 146 MG/DL (70-100); POTASSIUM SERUM 4.2 MEQ/L (3.5-5.1); SODIUM LEVEL 139 MEQ/L (136-145); TOTAL PROTEIN 7.3 GM/DL (6.4-8.2)
[2021-03-11] MEDS ORDERED: NS 1,000 ML IV ONE ×2 (04:20)
[2021-03-11] MEDS ORDERED: ISOVUE-370 76% 100ML VIAL As Ordered ONE (04:45)
--- NOTE | 2021-03-11 05:49 | REPVR ---
PROCEDURE INFORMATION: Exam: CT Abdomen And Pelvis With Contrast Exam date and time: 03/11/2021 4:57 AM Age: 50 years old Clinical indication: Abdominal pain; Generalized; Additional info: Abdominal pain, ? crohns flare TECHNIQUE: Imaging protocol: Computed tomography of the abdomen and pelvis with contrast. Radiation optimization: All CT scans at this facility use at least one of these dose optimization techniques: automated exposure control; mA and/or kV adjustment per patient size (includes targeted exams where dose is matched to clinical indication); or iterative reconstruction. Contrast material: ISOVUE 370; Contrast volume: 100 ml; Contrast route: INTRAVENOUS (IV); COMPARISON: CT ABD/PEL W/PO CONTRAST ONLY 03/26/2019 11:51 PM FINDINGS: Lungs: There is mild left basilar linear atelectatic changes. Nonspecific few small nodules/opacities seen in the lateral right middle lobe on axial images 4-11 with the largest nodule is ground-glass measuring 7-8 mm on axial image 4. Liver: Normal. No mass. Gallbladder and bile ducts: The gallbladder is moderately to significantly distended measuring 8.7 x 5.0 centimetres but with no evidence of calcified gallstones, wall thickening or surrounding inflammation. Pancreas: Normal. No ductal dilation. Spleen: Normal. No splenomegaly. Adrenal glands: Normal. No mass. Kidneys and ureters: Normal. No hydronephrosis. Stomach and bowel: There is questionable thickening versus under distention of the small bowel loops limiting their evaluation for wall thickening. Appendix: No evidence of appendicitis. Intraperitoneal space: Unremarkable. No free air. No significant fluid collection. Vasculature: Unremarkable. No abdominal aortic aneurysm. Lymph nodes: Small shotty mesenteric lymph nodes are seen. Urinary bladder: Unremarkable as visualized. Reproductive: Unremarkable as visualized. Bones/joints: Unremarkable. No acute fracture. Soft tissues: Unremarkable. IMPRESSION: 1. Under distended small bowel loops with questionable thickening of some coupled with shotty mesenteric lymph nodes. Correlate clinically for enteritis. 2. Nonspecific few tiny nodules in the lateral right middle lobe including is 7-8 mm ground-glass nodule.Recommend CT Chest at 6-12 months to confirm persistence of the nodule, then CT Chest at 3 years and 5 years. (Reference: Alli) REFERENCES: Alli Bond et al. Guidelines for Management of Incidental Pulmonary Nodules Detected on CT Images: From the Fleischner Society 2017. Radiology. 2017;284(1):228-243. Electronically signed by: Inder Pollack On 03/11/2021 05:48:44 AM
--- NOTE | 2021-03-11 07:17 | ED PDOC ---
Post-Departure Follow-Up raiology report faxed to Deanna Mixon Sarah MD Mar 11, 2021 07:17
[2021-03-11] MEDS ORDERED: PRED20TA PO (08:53)
[2021-03-11] MEDS ORDERED: predniSONE 20 MG TAB PO ONE (08:55)
[2021-03-11 09:52] VITALS: BP 158/99
== END 2021-03-11 09:55 | disposition home or self-care (01) ==
LOC: M ED 00:55
DX: R10.9 Unspecified abdominal pain (principal); K50.918 Crohn's disease, unspecified, with other complication; Z79.899 Other long term (current) drug therapy; Z88.5 Allergy status to narcotic agent; Z88.8 Allergy status to other drugs, medicaments and biological substances; Z87.891 Personal history of nicotine dependence
CPT/HCPCS: 36415; 74177; 80053; 83605; 83735; 85025; 96361; 96374; 99284; J1885; J2405; J7512; Q9963; Q9967

== ENCOUNTER 2021-03-22 12:01 | Outpatient (CLI) | payer BC ==
[~2021-03-22 12:01] MED LIST changes: +ACETAMINOPHEN 650MG PO PRIOR TO INFUSION PO ONE; +INFLIXIMAB BIOSIMILAR 700 MG in NS 180 ML IV ONE; +NS 1,000 ML IV SCH; +diphenhydrAMINE 25MG PO PRIOR TO INFUSION PO ONE
[2021-03-22 12:35] VITALS: BP 130/86
[2021-03-22 13:30] VITALS: BP 134/72
[2021-03-22 13:45] VITALS: BP 126/63
[2021-03-22 14:00] VITALS: BP 133/74
[2021-03-22 15:17] VITALS: BP 127/74
== END 2021-03-22 15:23 | disposition home or self-care (01) ==
LOC: M INFU 12:01
PROVIDERS: ATTEND Internal Medicine Gastroenterology
DX: K50.90 Crohn's disease, unspecified, without complications (principal); Z88.8 Allergy status to other drugs, medicaments and biological substances
CPT/HCPCS: 96365; 96366; Q5103

== ENCOUNTER 2021-05-04 11:21 | Outpatient (CLI) | payer BC ==
[2021-05-04] VITALS (7 sets, daily range): BP systolic 133–150; BP diastolic 71–85
[~2021-05-04] VITALS: Ht 160 cm; Wt 131.8 kg
[~2021-05-04 11:21] MED LIST changes: -ACETAMINOPHEN 650MG PO PRIOR TO INFUSION PO ONE; -DICY20TA11 PO; +DICY20TA20 PO; -INFLIXIMAB BIOSIMILAR 700 MG in NS 180 ML IV ONE; -NS 1,000 ML IV SCH; +OMEP-173 PO; -OMEP-218 PO; -diphenhydrAMINE 25MG PO PRIOR TO INFUSION PO ONE
[2021-05-04] MEDS ORDERED: ACETAMINOPHEN 650MG PO PRIOR TO INFUSION PO ONE (11:30)
[2021-05-04] MEDS ORDERED: NS 1,000 ML IV SCH (11:30)
[2021-05-04] MEDS ORDERED: diphenhydrAMINE 25MG PO PRIOR TO INFUSION PO ONE (11:30)
[2021-05-04] MEDS ORDERED: INFLIXIMAB BIOSIMILAR 700 MG in NS 180 ML IV ONE (11:30)
== END 2021-05-04 14:40 | disposition home or self-care (01) ==
LOC: M INFU 11:21
PROVIDERS: ATTEND Internal Medicine Gastroenterology
DX: K50.90 Crohn's disease, unspecified, without complications (principal); Z88.8 Allergy status to other drugs, medicaments and biological substances
CPT/HCPCS: 96365; 96366; Q5103

== ENCOUNTER 2021-06-15 11:17 | Outpatient (CLI) | payer BC ==
[2021-06-15] VITALS (7 sets, daily range): BP systolic 124–141; BP diastolic 66–80
[~2021-06-15] VITALS: Ht 160 cm; Wt 131.8 kg
[2021-06-15] MEDS ORDERED: NS 1,000 ML IV SCH (11:30)
[2021-06-15] MEDS ORDERED: ACETAMINOPHEN 650MG PO PRIOR TO INFUSION PO ONE (11:30)
[2021-06-15] MEDS ORDERED: INFLIXIMAB BIOSIMILAR 700 MG in NS 180 ML IV ONE (11:30)
[2021-06-15] MEDS ORDERED: diphenhydrAMINE 25MG PO PRIOR TO INFUSION PO ONE (11:30)
== END 2021-06-15 15:15 | disposition home or self-care (01) ==
LOC: M INFU 11:17
PROVIDERS: ATTEND Internal Medicine Gastroenterology
DX: K50.90 Crohn's disease, unspecified, without complications (principal); Z88.5 Allergy status to narcotic agent
CPT/HCPCS: 96413; 96415; Q5103

== ENCOUNTER → 2021-06-28 | Outpatient (CLI) | payer BC ==
[2021-06-28 13:40] LABS: LUTEINIZING HORMONE 4.2 mIU/mL (1.5-9.3)
== END ==
LOC: M LAB 10:41
PROVIDERS: ATTEND Student in an Organized Health Care Education/Training Program
DX: N62 Hypertrophy of breast (principal)

== ENCOUNTER 2021-07-27 11:33 | Outpatient (CLI) | payer BC ==
[~2021-07-27] VITALS: Ht 185.4 cm; Wt 140.0 kg
[~2021-07-27 11:33] MED LIST changes: +ACETAMINOPHEN 650MG PO PRIOR TO INFUSION PO ONE; +INFLIXIMAB BIOSIMILAR 700 MG in NS 180 ML IV ONE; +NS 1,000 ML IV SCH; +diphenhydrAMINE 25MG PO PRIOR TO INFUSION PO ONE
[2021-07-27 11:40] VITALS: BP 154/88
[2021-07-27 13:15] VITALS: BP 164/81
[2021-07-27 13:30] VITALS: BP 141/72
[2021-07-27 15:30] VITALS: BP 146/81
== END 2021-07-27 15:30 | disposition home or self-care (01) ==
LOC: M INFU 11:33
PROVIDERS: ATTEND Internal Medicine Gastroenterology
DX: K50.90 Crohn's disease, unspecified, without complications (principal); Z88.5 Allergy status to narcotic agent
CPT/HCPCS: 96413; 96415; Q5103

== ENCOUNTER 2021-09-05 13:44 | Outpatient (CLI) | payer BC ==
[~2021-09-05 13:44] MED LIST changes: -ACETAMINOPHEN 650MG PO PRIOR TO INFUSION PO ONE; -INFLIXIMAB BIOSIMILAR 700 MG in NS 180 ML IV ONE; -NS 1,000 ML IV SCH; -diphenhydrAMINE 25MG PO PRIOR TO INFUSION PO ONE
[2021-09-05 13:50] VITALS: BP 149/83
[2021-09-05] MEDS ORDERED: ACETAMINOPHEN 650MG PO PRIOR TO INFUSION PO ONE (14:00)
[2021-09-05] MEDS ORDERED: NS 1,000 ML IV SCH (14:00)
[2021-09-05] MEDS ORDERED: INFLIXIMAB BIOSIMILAR 700 MG in NS 180 ML IV ONE (14:00)
[2021-09-05] MEDS ORDERED: diphenhydrAMINE 25MG PO PRIOR TO INFUSION PO ONE (14:00)
[2021-09-05 14:35] VITALS: BP 128/72
[2021-09-05 14:50] VITALS: BP 120/67
[2021-09-05 15:20] VITALS: BP 131/69
[2021-09-05 15:50] VITALS: BP 132/73
== END 2021-09-05 17:00 | disposition home or self-care (01) ==
LOC: M INFU 13:44
PROVIDERS: ATTEND Internal Medicine Gastroenterology
DX: K50.90 Crohn's disease, unspecified, without complications (principal); Z88.5 Allergy status to narcotic agent
CPT/HCPCS: 96413; 96415; Q5103

== ENCOUNTER → 2021-10-01 | Outpatient (CLI) | payer BC ==
[~2021-10-01] MED LIST changes: -AZAT50TA2 PO; +AZAT50TA37 PO
== END ==
LOC: M RAD 08:17
PROVIDERS: ATTEND Family Medicine
DX: R91.8 Other nonspecific abnormal finding of lung field (principal)

== ENCOUNTER 2021-10-19 12:01 | Outpatient (CLI) | payer BC ==
[~2021-10-19] VITALS: Ht 190.5 cm; Wt 127.0 kg
[~2021-10-19 12:01] MED LIST changes: +ACETAMINOPHEN 650MG PO PRIOR TO INFUSION PO ONE; +ALBU2.5V10 INH; -ALBU83IN INH; +INFLIXIMAB BIOSIMILAR 700 MG in NS 180 ML IV ONE; +NS 1,000 ML IV SCH; +diphenhydrAMINE 25MG PO PRIOR TO INFUSION PO ONE
[2021-10-19 12:05] VITALS: BP 129/78
[2021-10-19 13:30] VITALS: BP 140/73
[2021-10-19 14:00] VITALS: BP 128/68
[2021-10-19 14:30] VITALS: BP 127/61
[2021-10-19 15:30] VITALS: BP 121/64
[2021-10-19 16:21] VITALS: BP 146/93
== END 2021-10-19 16:20 | disposition home or self-care (01) ==
LOC: M INFU 12:01
PROVIDERS: ATTEND Internal Medicine Gastroenterology
DX: K50.90 Crohn's disease, unspecified, without complications (principal); Z88.5 Allergy status to narcotic agent; Z88.8 Allergy status to other drugs, medicaments and biological substances
CPT/HCPCS: 96365; 96366; Q5103

== ENCOUNTER 2021-11-30 11:40 | Outpatient (CLI) | payer BC ==
[~2021-11-30] VITALS: Ht 190.5 cm; Wt 123.2 kg
[2021-11-30 11:40] VITALS: BP 124/77
[2021-11-30 13:00] VITALS: BP 122/78
[2021-11-30 13:30] VITALS: BP 128/67
[2021-11-30 14:00] VITALS: BP 132/70
[2021-11-30 15:15] VITALS: BP 137/73
== END 2021-11-30 15:30 | disposition home or self-care (01) ==
LOC: M INFU 11:40
PROVIDERS: ATTEND Internal Medicine Gastroenterology
DX: K50.90 Crohn's disease, unspecified, without complications (principal); Z88.5 Allergy status to narcotic agent; Z88.6 Allergy status to analgesic agent
CPT/HCPCS: 96413; 96415; Q5103

== ENCOUNTER 2022-01-09 11:20 | Outpatient (CLI) | payer BC ==
[~2022-01-09] VITALS: Ht 190.5 cm; Wt 123.2 kg
[2022-01-09 11:20] VITALS: BP 141/98
[~2022-01-09 11:20] MED LIST changes: -ACETAMINOPHEN 650MG PO PRIOR TO INFUSION PO ONE; -INFLIXIMAB BIOSIMILAR 700 MG in NS 180 ML IV ONE; -NS 1,000 ML IV SCH; -diphenhydrAMINE 25MG PO PRIOR TO INFUSION PO ONE
[2022-01-09] MEDS ORDERED: ACETAMINOPHEN 650MG PO PRIOR TO INFUSION PO ONE (11:30)
[2022-01-09] MEDS ORDERED: INFLIXIMAB BIOSIMILAR 700 MG in NS 180 ML IV ONE (11:30)
[2022-01-09] MEDS ORDERED: diphenhydrAMINE 25MG PO PRIOR TO INFUSION PO ONE (11:30)
[2022-01-09] MEDS ORDERED: NS 1,000 ML IV SCH (11:30)
[2022-01-09 13:00] VITALS: BP 126/63
[2022-01-09 13:30] VITALS: BP 114/62
[2022-01-09 14:00] VITALS: BP 116/67
[2022-01-09 14:34] LABS: HEPATITIS B SURFACE ANTIGEN NEGATIVE (NEGATIVE); VITAMIN B12 LEVEL 289 PG/ML (247-911)
[2022-01-09 15:20] VITALS: BP 117/65
== END 2022-01-09 15:45 | disposition home or self-care (01) ==
LOC: M INFU 11:20
PROVIDERS: ATTEND Internal Medicine Gastroenterology
DX: K50.90 Crohn's disease, unspecified, without complications (principal); Z88.5 Allergy status to narcotic agent; Z88.6 Allergy status to analgesic agent
CPT/HCPCS: 82607; 86480; 87340; 96413; 96415; Q5103

== ENCOUNTER 2022-02-22 12:00 | Outpatient (CLI) | payer BC ==
[~2022-02-22] VITALS: Ht 190.5 cm; Wt 123.0 kg
[2022-02-22 12:00] VITALS: BP_SYST 100; BP_SYST 133; BP_DIAS 54; BP_DIAS 72
[~2022-02-22 12:00] MED LIST changes: +ACETAMINOPHEN 650MG PO PRIOR TO INFUSION PO ONE; +INFLIXIMAB BIOSIMILAR 700 MG in NS 180 ML IV ONE; +NS 1,000 ML IV SCH; +diphenhydrAMINE 25MG PO PRIOR TO INFUSION PO ONE
[2022-02-22 13:00] VITALS: BP 135/73
[2022-02-22 13:30] VITALS: BP 139/81
[2022-02-22 15:15] VITALS: BP 144/81
== END 2022-02-22 15:15 | disposition home or self-care (01) ==
LOC: M INFU 12:00
PROVIDERS: ATTEND Internal Medicine Gastroenterology
DX: K50.90 Crohn's disease, unspecified, without complications (principal); Z88.5 Allergy status to narcotic agent; Z88.6 Allergy status to analgesic agent
CPT/HCPCS: 96413; 96415; Q5103

== ENCOUNTER → 2022-03-07 | Outpatient (CLI) | payer BC ==
[~2022-03-07] MED LIST changes: -ACETAMINOPHEN 650MG PO PRIOR TO INFUSION PO ONE; -INFLIXIMAB BIOSIMILAR 700 MG in NS 180 ML IV ONE; -NS 1,000 ML IV SCH; -diphenhydrAMINE 25MG PO PRIOR TO INFUSION PO ONE
[2022-03-07 16:53] LABS: HEMATOCRIT 44.1 % (42.0-52.0); HEMOGLOBIN 14.9 g/dl (13.5-17.5); MEAN CORPUSCULAR HEMOGLOBIN 30.5 pg (27.0-33.0); MEAN CORPUSCULAR HGB CONC 33.8 g/dl (32.0-36.5); MEAN CORPUSCULAR VOLUME 90.4 fl (80.0-96.0); PLATELET COUNT, AUTOMATED 234 10^3/uL (150-450); RED BLOOD COUNT 4.88 10^6/uL (4.30-6.10); WHITE BLOOD COUNT 9.9 10^3/uL (4.0-10.0)
[2022-03-07 17:25] LABS: BLOOD UREA NITROGEN 22 MG/DL (7-18); CALCIUM LEVEL 8.9 MG/DL (8.5-10.1); CARBON DIOXIDE LEVEL 26 MEQ/L (21-32); CHLORIDE LEVEL 104 MEQ/L (98-107); CREATININE FOR GFR 1.24 MG/DL (0.70-1.30); GLOMERULAR FILTRATION RATE > 60.0 (>56); GLUCOSE, FASTING 105 MG/DL (70-100); POTASSIUM SERUM 4.4 MEQ/L (3.5-5.1); SODIUM LEVEL 135 MEQ/L (136-145)
== END ==
LOC: M LAB 15:38
PROVIDERS: ATTEND Podiatrist Foot & Ankle Surgery
DX: Z01.818 Encounter for other preprocedural examination (principal)

== ENCOUNTER → 2022-03-10 | Outpatient (CLI) | payer BC ==
[~2022-03-10] MED LIST changes: -SPIR-10; +SPIR-10 PO
== END ==
LOC: M LABSMTC 11:52
PROVIDERS: ATTEND Anesthesiology
DX: Z01.812 Encounter for preprocedural laboratory examination (principal); Z20.822 Contact with and (suspected) exposure to COVID-19

== ENCOUNTER 2022-03-13 08:59 | Day surgery (SDC) | payer BC ==
[~2022-03-13] VITALS: Ht 190.5 cm; Wt 126.9 kg
[~2022-03-13 08:59] MED LIST changes: +ceFAZolin SOD 2 GM in IV 1 EA IV ONE
[2022-03-13] MEDS ORDERED: LR 1,000 ML IV SCH (09:25)
[2022-03-13] MEDS ORDERED: dexameTHASONE 4 MG/ML 1ML VIAL (J1100 PER 1MG) As Ordered ONE ×2 (10:31→10:58)
[2022-03-13] MEDS ORDERED: BUPIVACAINE HCL 0.5% 30ML VIAL As Ordered ONE (10:31)
[2022-03-13] MEDS ORDERED: LIDOCAINE 1% SDV 30ML VIAL As Ordered ONE (10:31)
[2022-03-13] MEDS ORDERED: ONDANSETRON 4MG 2ML VIAL As Ordered ONE (10:34)
[2022-03-13] MEDS ORDERED: propofoL 200 MG/20 ML VIAL As Ordered ONE (10:34)
[2022-03-13] MEDS ORDERED: LIDOCAINE 2% 100MG/5ML SDV (FOR ANES.) As Ordered ONE (10:34)
[2022-03-13] MEDS ORDERED: MIDAZOLAM INJ 2MG/2ML VIAL (J2250 PER 1MG) As Ordered ONE (10:35)
[2022-03-13] MEDS ORDERED: fentaNYL 100 MCG/2 ML INJECTION As Ordered ONE ×2 (10:35→11:53)
[2022-03-13] MEDS ORDERED: METOCLOPRAMIDE INJ 10MG/2ML VIAL (J2765 PER 1) As Ordered ONE (10:59)
[2022-03-13] MEDS ORDERED: SEVOFLURANE INHAL SOLN 250 ML BTL As Ordered ONE (11:47)
[2022-03-13] MEDS ORDERED: ACETAMINOPHEN 1000MG 100ML IV BTL (OFIRMEV) (J0131 PER 10MG) As Ordered ONE (11:47)
[2022-03-13] MEDS ORDERED: ONDANSETRON 4MG 2ML VIAL IV PRN (12:35)
[2022-03-13] MEDS ORDERED: oxyCODONE 5MG TAB PO ONE (13:05)
[2022-03-13 14:08] VITALS: BP 106/60
== END 2022-03-13 14:08 | disposition home or self-care (01) ==
LOC: M SDC 08:59
PROVIDERS: ATTEND Podiatrist Foot & Ankle Surgery
DX: M21.611 Bunion of right foot (principal); D64.9 Anemia, unspecified; Z86.711 Personal history of pulmonary embolism; K21.9 Gastro-esophageal reflux disease without esophagitis; K50.90 Crohn's disease, unspecified, without complications; Z79.899 Other long term (current) drug therapy; J45.909 Unspecified asthma, uncomplicated; Z88.5 Allergy status to narcotic agent; Z88.8 Allergy status to other drugs, medicaments and biological substances; Z87.891 Personal history of nicotine dependence
CPT/HCPCS: 28299; 76000; 88300; C1713; J0131; J0690; J1100; J2250; J2405; J2765; J3010

== ENCOUNTER 2022-04-04 11:30 | Outpatient (CLI) | payer BC ==
[~2022-04-04] VITALS: Ht 185.4 cm; Wt 131.0 kg
[~2022-04-04 11:30] MED LIST changes: +ACETAMINOPHEN 650MG PO PRIOR TO INFUSION PO ONE; +INFLIXIMAB BIOSIMILAR 700 MG in NS 180 ML IV ONE; +NS 1,000 ML IV SCH; -ceFAZolin SOD 2 GM in IV 1 EA IV ONE; +diphenhydrAMINE 25MG PO PRIOR TO INFUSION PO ONE
[2022-04-04 11:43] VITALS: BP 137/63
[2022-04-04 13:00] VITALS: BP 126/72
[2022-04-04 14:00] VITALS: BP 133/67
== END 2022-04-04 15:20 | disposition home or self-care (01) ==
LOC: M INFU 11:30
PROVIDERS: ATTEND Internal Medicine Gastroenterology
DX: K50.90 Crohn's disease, unspecified, without complications (principal); Z88.5 Allergy status to narcotic agent; Z88.8 Allergy status to other drugs, medicaments and biological substances
CPT/HCPCS: 96413; 96415; Q5103

== ENCOUNTER 2022-05-17 11:30 | Outpatient (CLI) | payer BC ==
[2022-05-17 11:30] VITALS: BP 119/76
[2022-05-17 14:45] VITALS: BP 131/86
[2022-05-17 14:55] VITALS: BP 131/86
== END 2022-05-17 14:55 | disposition home or self-care (01) ==
LOC: M INFU 11:30
PROVIDERS: ATTEND Internal Medicine Gastroenterology
DX: K50.90 Crohn's disease, unspecified, without complications (principal); Z88.5 Allergy status to narcotic agent; Z88.8 Allergy status to other drugs, medicaments and biological substances
CPT/HCPCS: 96413; 96415; Q5103

== ENCOUNTER 2022-06-28 11:35 | Outpatient (CLI) | payer BC ==
[2022-06-28 11:35] VITALS: BP 137/75
[2022-06-28 13:00] VITALS: BP 137/73
[2022-06-28 13:30] VITALS: BP 120/65
[2022-06-28 14:00] VITALS: BP 125/68
[2022-06-28 15:05] VITALS: BP 139/67
[2022-06-28 15:15] VITALS: BP 121/71
== END 2022-06-28 15:15 | disposition home or self-care (01) ==
LOC: M INFU 11:35
PROVIDERS: ATTEND Internal Medicine Gastroenterology
DX: K50.90 Crohn's disease, unspecified, without complications (principal); Z88.5 Allergy status to narcotic agent; Z88.8 Allergy status to other drugs, medicaments and biological substances
CPT/HCPCS: 96413; 96415; Q5103

== ENCOUNTER → 2022-07-03 | Outpatient (CLI) | payer BC ==
[~2022-07-03] MED LIST changes: -ACETAMINOPHEN 650MG PO PRIOR TO INFUSION PO ONE; -INFLIXIMAB BIOSIMILAR 700 MG in NS 180 ML IV ONE; -NS 1,000 ML IV SCH; -diphenhydrAMINE 25MG PO PRIOR TO INFUSION PO ONE
[2022-07-03 12:37] LABS: HEMOGLOBIN A1c 5.9 % (4.0-6.0)
[2022-07-03 14:28] LABS: CHOLESTEROL RISK RATIO 3.72 (<5); HDL CHOLESTEROL 42.7 MG/DL (>40)
[2022-07-03 22:03] LABS: LDL CHOLESTEROL 72.1 MG/DL (<100)
== END ==
LOC: M LAB 11:17
PROVIDERS: ATTEND Student in an Organized Health Care Education/Training Program
DX: R73.01 Impaired fasting glucose (principal); E78.5 Hyperlipidemia, unspecified

== ENCOUNTER → 2022-07-03 | Outpatient (CLI) | payer BC ==
[2022-07-03 12:14] LABS: BASO % 0.3 % (0.0-1.0); EOS # 0.1 10^3/uL (0.0-0.5); EOS % 0.6 % (0.0-3.0); HEMATOCRIT 44.8 % (42.0-52.0); HEMOGLOBIN 15.1 g/dl (13.5-17.5); LYMPH # 4.6 10^3/uL (1.5-5.0); LYMPH % 39.3 % (24.0-44.0); MEAN CORPUSCULAR HEMOGLOBIN 30.3 pg (27.0-33.0); MEAN CORPUSCULAR HGB CONC 33.7 g/dl (32.0-36.5); MONO # 0.7 10^3/uL (0.0-0.8); MONO % 5.8 % (2.0-8.0); NEUTROPHILS # 6.3 10^3/uL (1.5-8.5); NEUTROPHILS % 53.5 % (36.0-66.0); PLATELET COUNT, AUTOMATED 181 10^3/uL (150-450); RED BLOOD COUNT 4.98 10^6/uL (4.30-6.10); WHITE BLOOD COUNT 11.7 10^3/uL (4.0-10.0)
[2022-07-03 12:39] LABS: C REACTIVE PROTEIN QUANTITATIV < 0.40 MG/DL (<1.0)
[2022-07-03 12:40] LABS: IMMUNOGLOBULIN A 430.8 MG/DL (40-350)
[2022-07-03 12:43] LABS: ERYTHROCYTE SEDIMENTATION RATE 14 mm/hr (0-20)
[2022-07-03 14:18] LABS: ALBUMIN 3.9 G/DL (3.2-5.2); ALKALINE PHOSPHATASE 60 U/L (46-116); ALT/SGPT 22 U/L (7.0-40); AST/SGOT 20 U/L (<34); BILIRUBIN,TOTAL 0.8 MG/DL (0.3-1.2); BLOOD UREA NITROGEN 17 MG/DL (9-23); CALCIUM LEVEL 8.9 MG/DL (8.5-10.1); CARBON DIOXIDE LEVEL 28 MMOL/L (20-31); CHLORIDE LEVEL 102 MMOL/L (98-107); CREATININE FOR GFR 0.79 MG/DL (0.70-1.30); FREE T4 1.49 NG/DL (0.89-1.76); GLOMERULAR FILTRATION RATE > 60.0 (>56); GLUCOSE, FASTING 104 MG/DL (60-100); POTASSIUM SERUM 3.6 MMOL/L (3.5-5.1); SODIUM LEVEL 138 MMOL/L (136-145); THYROID STIMULATING HORMONE 2.118 uIU/ML (0.55-4.78); VITAMIN B12 LEVEL 389 PG/ML (211-911)
[2022-07-03 21:42] LABS: FOLATE > 24.0 NG/ML (>5.4); TOTAL PROTEIN 6.9 G/DL (5.7-8.2)
== END ==
LOC: M LAB 11:14
PROVIDERS: ATTEND Internal Medicine Gastroenterology
DX: K50.80 Crohn's disease of both small and large intestine without complications (principal)

== ENCOUNTER → 2022-07-04 | Outpatient (REF) | payer BC | LOC: M LAB REF 16:02 | PROVIDERS: ATTEND Internal Medicine Gastroenterology | DX: K50.80 Crohn's disease of both small and large intestine without complications (principal) ==

== ENCOUNTER 2022-08-09 11:03 | Outpatient (CLI) | payer BC ==
[~2022-08-09] VITALS: Ht 190.5 cm; Wt 130.1 kg
[2022-08-09 11:15] VITALS: BP_SYST 121; BP_SYST 130; BP_DIAS 70; BP_DIAS 73
[2022-08-09] MEDS ORDERED: INFLIXIMAB BIOSIMILAR 700 MG in NS 180 ML IV ONE (11:30)
[2022-08-09] MEDS ORDERED: ACETAMINOPHEN 650MG PO PRIOR TO INFUSION PO ONE (11:30)
[2022-08-09] MEDS ORDERED: diphenhydrAMINE 25MG PO PRIOR TO INFUSION PO ONE (11:30)
[2022-08-09] MEDS ORDERED: NS 1,000 ML IV SCH (11:30)
[2022-08-09 12:30] VITALS: BP 118/78
[2022-08-09 13:00] VITALS: BP 134/78
[2022-08-09 14:00] VITALS: BP 124/74
[2022-08-09 15:05] VITALS: BP 144/79
== END 2022-08-09 15:05 | disposition home or self-care (01) ==
LOC: M INFU 11:03
PROVIDERS: ATTEND Internal Medicine Gastroenterology
DX: K50.90 Crohn's disease, unspecified, without complications (principal); Z88.5 Allergy status to narcotic agent; Z88.8 Allergy status to other drugs, medicaments and biological substances
CPT/HCPCS: 96413; 96415; Q5103

== ENCOUNTER → 2022-09-04 | Outpatient (CLI) | payer BC | LOC: M LAB 08:59 | PROVIDERS: ATTEND Internal Medicine Gastroenterology | DX: K50.80 Crohn's disease of both small and large intestine without complications (principal) ==

== ENCOUNTER 2022-09-20 11:35 | Outpatient (CLI) | payer BC ==
[~2022-09-20] VITALS: Ht 190.5 cm; Wt 130.1 kg
[~2022-09-20 11:35] MED LIST changes: +ACETAMINOPHEN 650MG PO PRIOR TO INFUSION PO ONE; +INFLIXIMAB BIOSIMILAR 700 MG in NS 180 ML IV ONE; +NS 1,000 ML IV SCH; +diphenhydrAMINE 25MG PO PRIOR TO INFUSION PO ONE
[2022-09-20 13:30] VITALS: BP 136/77
[2022-09-20 14:20] VITALS: BP 162/81
[2022-09-20 15:15] VITALS: BP 126/66
[2022-09-20 16:10] VITALS: BP 138/76
== END 2022-09-20 16:10 | disposition home or self-care (01) ==
LOC: M INFU 11:35
PROVIDERS: ATTEND Internal Medicine Gastroenterology
DX: K50.90 Crohn's disease, unspecified, without complications (principal); Z88.5 Allergy status to narcotic agent; Z88.8 Allergy status to other drugs, medicaments and biological substances
CPT/HCPCS: 36592; 86480; 87340; 96413; 96415; Q5103

== ENCOUNTER 2022-09-23 08:16 | Emergency (ER) | payer BC ==
[~2022-09-23] VITALS: Ht 190.5 cm; Wt 122.7 kg
[~2022-09-23 08:16] MED LIST changes: -ACETAMINOPHEN 650MG PO PRIOR TO INFUSION PO ONE; -INFLIXIMAB BIOSIMILAR 700 MG in NS 180 ML IV ONE; -NS 1,000 ML IV SCH; -diphenhydrAMINE 25MG PO PRIOR TO INFUSION PO ONE
[2022-09-23 11:52] LABS: BASO # 0.1 10^3/uL (0.0-0.2); BASO % 0.6 % (0.0-1.0); EOS # 0.2 10^3/uL (0.0-0.5); HEMATOCRIT 45.1 % (42.0-52.0); HEMOGLOBIN 14.9 g/dl (13.5-17.5); LYMPH # 3.2 10^3/uL (1.5-5.0); LYMPH % 39.6 % (24.0-44.0); MEAN CORPUSCULAR HEMOGLOBIN 30.5 pg (27.0-33.0); MEAN CORPUSCULAR VOLUME 92.2 fl (80.0-96.0); MONO # 0.8 10^3/uL (0.0-0.8); MONO % 10.3 % (2.0-8.0); NEUTROPHILS # 3.6 10^3/uL (1.5-8.5); NEUTROPHILS % 45.6 % (36.0-66.0); PLATELET COUNT, AUTOMATED 191 10^3/uL (150-450); RED BLOOD COUNT 4.89 10^6/uL (4.30-6.10)
[2022-09-23 11:56] LABS: INR 0.89; PROTHROMBIN TIME 12.2 SECONDS (12.5-14.5)
[2022-09-23 11:57] LABS: PARTIAL THROMBOPLASTIN TIME 24.1 SECONDS (24.8-34.2)
[2022-09-23 12:07] LABS: C REACTIVE PROTEIN QUANTITATIV < 0.40 MG/DL (<1.0)
[2022-09-23 12:08] LABS: BLOOD UREA NITROGEN 19 MG/DL (9-23); CALCIUM LEVEL 9.3 MG/DL (8.5-10.1); CARBON DIOXIDE LEVEL 26 MMOL/L (20-31); CHLORIDE LEVEL 102 MMOL/L (98-107); CREATININE FOR GFR 0.76 MG/DL (0.70-1.30); GLOMERULAR FILTRATION RATE > 60.0 (>56); GLUCOSE, FASTING 87 MG/DL (60-100); POTASSIUM SERUM 3.9 MMOL/L (3.5-5.1); SODIUM LEVEL 135 MMOL/L (136-145)
[2022-09-23 12:10] LABS: ERYTHROCYTE SEDIMENTATION RATE 20 mm/hr (0-20)
[2022-09-23 13:26] VITALS: BP 132/78
== END 2022-09-23 13:28 | disposition home or self-care (01) ==
LOC: M ED 08:16
DX: M79.605 Pain in left leg (principal); E78.5 Hyperlipidemia, unspecified; M54.50 Low back pain, unspecified; Z86.718 Personal history of other venous thrombosis and embolism; Z88.5 Allergy status to narcotic agent; Z88.8 Allergy status to other drugs, medicaments and biological substances; Z79.1 Long term (current) use of non-steroidal anti-inflammatories (NSAID); Z79.810 Long term (current) use of selective estrogen receptor modulators (SERMs); Z79.52 Long term (current) use of systemic steroids; Z79.899 Other long term (current) drug therapy

== ENCOUNTER 2022-11-01 11:22 | Outpatient (CLI) | payer BC ==
[~2022-11-01] VITALS: Ht 190.5 cm; Wt 130.1 kg
[~2022-11-01 11:22] MED LIST changes: +CYAN-1 PO; -CYAN100050 PO
[2022-11-01 11:30] VITALS: BP 137/87; O2SAT 95
[2022-11-01] MEDS ORDERED: NS 1,000 ML IV SCH (11:30)
[2022-11-01] MEDS ORDERED: ACETAMINOPHEN 650MG PO PRIOR TO INFUSION PO ONE (11:30)
[2022-11-01] MEDS ORDERED: diphenhydrAMINE 25MG PO PRIOR TO INFUSION PO ONE (11:30)
[2022-11-01] MEDS ORDERED: INFLIXIMAB BIOSIMILAR 700 MG in NS 180 ML IV ONE (11:30)
[2022-11-01 12:30] VITALS: BP 132/80; O2SAT 96
[2022-11-01 13:00] VITALS: BP 141/92; O2SAT 96
[2022-11-01 14:35] VITALS: BP 165/85; O2SAT 98
== END 2022-11-01 14:35 ==
LOC: M INFU 11:22
PROVIDERS: ATTEND Internal Medicine Gastroenterology
DX: K50.90 Crohn's disease, unspecified, without complications (principal); Z88.5 Allergy status to narcotic agent; Z88.8 Allergy status to other drugs, medicaments and biological substances
CPT/HCPCS: 96413; 96415; Q5103

== ENCOUNTER 2022-12-13 11:30 | Outpatient (CLI) | payer BC ==
[~2022-12-13] VITALS: Ht 190.5 cm; Wt 134.0 kg
[2022-12-13 11:30] VITALS: BP 140/83; O2SAT 98
[2022-12-13] MEDS ORDERED: INFLIXIMAB BIOSIMILAR 700 MG in NS 180 ML IV ONE (12:30)
[2022-12-13] MEDS ORDERED: diphenhydrAMINE 25MG PO PRIOR TO INFUSION PO ONE (12:30)
[2022-12-13] MEDS ORDERED: ACETAMINOPHEN 650MG PO PRIOR TO INFUSION PO ONE (12:30)
[2022-12-13] MEDS ORDERED: NS 1,000 ML IV SCH (12:30)
[2022-12-13 14:30] VITALS: BP 124/78; O2SAT 97
[2022-12-13 15:25] VITALS: BP 138/68; O2SAT 97
== END 2022-12-13 15:50 | disposition home or self-care (01) ==
LOC: M INFU 11:30
PROVIDERS: ATTEND Internal Medicine Gastroenterology
DX: K50.90 Crohn's disease, unspecified, without complications (principal); Z88.5 Allergy status to narcotic agent; Z88.8 Allergy status to other drugs, medicaments and biological substances
CPT/HCPCS: 96413; 96415; Q5103

== ENCOUNTER 2023-01-24 11:35 | Outpatient (CLI) | payer BC ==
[~2023-01-24] VITALS: Ht 190.5 cm; Wt 136.3 kg
[2023-01-24] MEDS ORDERED: INFLIXIMAB BIOSIMILAR 700 MG in NS 180 ML IV ONE (12:00)
[2023-01-24] MEDS ORDERED: diphenhydrAMINE 25MG PO PRIOR TO INFUSION PO ONE (12:00)
[2023-01-24] MEDS ORDERED: ACETAMINOPHEN 650MG PO PRIOR TO INFUSION PO ONE (12:00)
[2023-01-24] MEDS ORDERED: NS 1,000 ML IV SCH (12:00)
[2023-01-24 14:55] VITALS: BP 140/90; O2SAT 98
== END 2023-01-24 14:55 ==
LOC: M INFU 11:35
PROVIDERS: ATTEND Internal Medicine Gastroenterology
DX: K50.90 Crohn's disease, unspecified, without complications (principal); Z88.5 Allergy status to narcotic agent; Z88.8 Allergy status to other drugs, medicaments and biological substances
CPT/HCPCS: 96413; 96415; Q5103

== ENCOUNTER 2023-03-03 13:30 | Outpatient (CLI) | payer BC ==
[~2023-03-03] VITALS: Ht 190.5 cm; Wt 132.0 kg
[2023-03-03 13:30] VITALS: BP 119/71; TEMP 98.4; O2SAT 97
[2023-03-03] MEDS ORDERED: diphenhydrAMINE 25MG PO PRIOR TO INFUSION PO ONE (14:00)
[2023-03-03] MEDS ORDERED: INFLIXIMAB BIOSIMILAR 700 MG in NS 180 ML IV ONE (14:00)
[2023-03-03] MEDS ORDERED: NS 1,000 ML IV SCH (14:00)
[2023-03-03] MEDS ORDERED: ACETAMINOPHEN 650MG PO PRIOR TO INFUSION PO ONE (14:00)
[2023-03-03 14:50] VITALS: BP 133/72; TEMP 98; O2SAT 96
[2023-03-03 15:15] VITALS: BP 128/68; TEMP 98; O2SAT 95
[2023-03-03 15:45] VITALS: BP 138/70; TEMP 97.9; O2SAT 98
[2023-03-03 16:15] VITALS: BP 132/72; TEMP 97.6; O2SAT 96
[2023-03-03 17:31] VITALS: BP 170/100; TEMP 98.2; O2SAT 97
== END 2023-03-03 17:30 ==
LOC: M INFU 13:30
PROVIDERS: ATTEND Internal Medicine Gastroenterology
DX: K50.90 Crohn's disease, unspecified, without complications (principal); Z88.5 Allergy status to narcotic agent; Z88.6 Allergy status to analgesic agent
CPT/HCPCS: 96413; 96415; Q5103

== ENCOUNTER 2023-03-06 08:30 | Emergency (ER) | payer BC ==
[~2023-03-06] VITALS: Ht 190.5 cm; Wt 136.4 kg
[2023-03-06] MEDS ORDERED: INFL100I IV (08:42)
[2023-03-06 11:01] VITALS: TEMP 98.2
[2023-03-06] MEDS ORDERED: IPRATROPIUM 0.5MG/ALBUTEROL 2.5MG INH SOL UD 3ML (DUONEB) NEB PRN (11:30)
[2023-03-06] MEDS ORDERED: CETIRIZINE (ZyrTEC) 10 MG TAB PO ONE (11:30)
[2023-03-06] MEDS ORDERED: BENZONATATE 100MG CAPSULE PO ONE (11:30)
[2023-03-06] MEDS ORDERED: predniSONE 20 MG TAB PO ONE (13:00)
[2023-03-06] MEDS ORDERED: CETI-24 PO (13:02)
[2023-03-06] MEDS ORDERED: ALBU2.5V10 NEB (13:02)
[2023-03-06] MEDS ORDERED: NEBU1EAC78 MC (13:02)
[2023-03-06] MEDS ORDERED: PRED20TA PO (13:02)
[2023-03-06] MEDS ORDERED: BENZ200C70 PO (13:02)
[2023-03-06 13:08] VITALS: BP 141/74; O2SAT 99
== END 2023-03-06 13:12 | disposition home or self-care (01) ==
LOC: M ED 08:30
DX: J06.9 Acute upper respiratory infection, unspecified (principal); B34.8 Other viral infections of unspecified site; J45.909 Unspecified asthma, uncomplicated; E78.5 Hyperlipidemia, unspecified; K50.90 Crohn's disease, unspecified, without complications; Z86.718 Personal history of other venous thrombosis and embolism; Z88.5 Allergy status to narcotic agent; Z88.8 Allergy status to other drugs, medicaments and biological substances; Z79.1 Long term (current) use of non-steroidal anti-inflammatories (NSAID); Z79.52 Long term (current) use of systemic steroids; Z79.810 Long term (current) use of selective estrogen receptor modulators (SERMs); Z79.899 Other long term (current) drug therapy
CPT/HCPCS: 71046; 87486; 87581; 87633; 87798; 94640; 99284; J7512

== ENCOUNTER 2023-04-18 13:15 | Outpatient (CLI) | payer BC ==
[~2023-04-18] VITALS: Ht 190.5 cm; Wt 136.0 kg
[2023-04-18 13:15] VITALS: BP 144/72; O2SAT 98
[~2023-04-18 13:15] MED LIST changes: +ACETAMINOPHEN 650MG PO PRIOR TO INFUSION PO ONE; +ALBU2.5V10 NEB; +BENZ200C70 PO; +CETI-24 PO; +INFL100I IV; +INFLIXIMAB BIOSIMILAR IV ONE; +NEBU1EAC78 MC; +NS 1,000 ML IV SCH; +NS IV ONE; +diphenhydrAMINE 25MG PO PRIOR TO INFUSION PO ONE
[2023-04-18 15:00] VITALS: BP 127/68; O2SAT 97
[2023-04-18 16:00] VITALS: BP 114/60; O2SAT 100
[2023-04-18 16:54] VITALS: BP 122/67; O2SAT 100
[2023-04-18 17:45] VITALS: BP 140/83; O2SAT 98
== END 2023-04-18 17:45 | disposition home or self-care (01) ==
LOC: M INFU 13:15
PROVIDERS: ATTEND Internal Medicine Gastroenterology
DX: K50.90 Crohn's disease, unspecified, without complications (principal); Z88.5 Allergy status to narcotic agent; Z88.8 Allergy status to other drugs, medicaments and biological substances
CPT/HCPCS: 96413; 96415; Q5103

== ENCOUNTER → 2023-06-13 | Outpatient (CLI) | payer BC ==
[~2023-06-13] VITALS: Ht 190.5 cm; Wt 140.9 kg
[2023-06-13 12:50] VITALS: BP 125/79; O2SAT 98
[2023-06-13 14:30] VITALS: BP 128/68; O2SAT 96
[2023-06-13 15:00] VITALS: BP 130/68; O2SAT 95
[2023-06-13 16:43] VITALS: BP 150/75; O2SAT 95
[2023-06-13 16:45] VITALS: BP 150/75; TEMP 36.4; O2SAT 95
== END ==
LOC: M INFU 12:45
PROVIDERS: ATTEND Internal Medicine Gastroenterology
DX: K50.90 Crohn's disease, unspecified, without complications (principal); Z88.5 Allergy status to narcotic agent; Z88.8 Allergy status to other drugs, medicaments and biological substances
CPT/HCPCS: 96413; 96415; Q5103

== ENCOUNTER → 2023-06-26 | Outpatient (CLI) | payer BC ==
[~2023-06-26] MED LIST changes: -ACETAMINOPHEN 650MG PO PRIOR TO INFUSION PO ONE; -INFLIXIMAB BIOSIMILAR IV ONE; -NS 1,000 ML IV SCH; -NS IV ONE; -diphenhydrAMINE 25MG PO PRIOR TO INFUSION PO ONE
== END ==
LOC: M PAIN 08:00
PROVIDERS: ATTEND Nurse Practitioner Family
DX: M46.1 Sacroiliitis, not elsewhere classified (principal); M54.2 Cervicalgia; G89.29 Other chronic pain; M25.511 Pain in right shoulder; M70.61 Trochanteric bursitis, right hip; M70.62 Trochanteric bursitis, left hip; Z86.14 Personal history of Methicillin resistant Staphylococcus aureus infection; Z80.8 Family history of malignant neoplasm of other organs or systems; Z87.891 Personal history of nicotine dependence; Z88.5 Allergy status to narcotic agent; Z88.8 Allergy status to other drugs, medicaments and biological substances; Z79.899 Other long term (current) drug therapy

== ENCOUNTER → 2023-06-26 | Outpatient (CLI) | payer BC | LOC: M RAD 09:28 | PROVIDERS: ATTEND Nurse Practitioner Family | DX: M54.2 Cervicalgia (principal); M25.511 Pain in right shoulder ==

== ENCOUNTER → 2023-07-03 | Outpatient (CLI) | payer BC | LOC: M PAIN 10:45 | PROVIDERS: ATTEND Nurse Practitioner Family | DX: M79.12 Myalgia of auxiliary muscles, head and neck (principal); M79.18 Myalgia, other site; K50.90 Crohn's disease, unspecified, without complications; J45.909 Unspecified asthma, uncomplicated; Z87.891 Personal history of nicotine dependence; Z79.52 Long term (current) use of systemic steroids; Z79.899 Other long term (current) drug therapy; Z88.5 Allergy status to narcotic agent; Z88.8 Allergy status to other drugs, medicaments and biological substances ==

== ENCOUNTER → 2023-07-10 | Outpatient (CLI) | payer BC | LOC: M SOG 08:13 | PROVIDERS: ATTEND Orthopaedic Surgery | DX: M25.552 Pain in left hip (principal); M25.551 Pain in right hip; M85.851 Other specified disorders of bone density and structure, right thigh; M85.852 Other specified disorders of bone density and structure, left thigh; M16.0 Bilateral primary osteoarthritis of hip ==

== ENCOUNTER → 2023-07-18 | Outpatient (CLI) | payer BC | LOC: M PLARAD 10:24 | PROVIDERS: ATTEND Nurse Practitioner Family | DX: M46.1 Sacroiliitis, not elsewhere classified (principal) ==

== ENCOUNTER → 2023-07-22 | Outpatient (CLI) | payer BC | LOC: M PAIN 11:15 | PROVIDERS: ATTEND Nurse Practitioner Family | DX: M46.1 Sacroiliitis, not elsewhere classified (principal); G89.29 Other chronic pain; K50.90 Crohn's disease, unspecified, without complications; M19.90 Unspecified osteoarthritis, unspecified site; J45.909 Unspecified asthma, uncomplicated; Z87.891 Personal history of nicotine dependence; Z79.899 Other long term (current) drug therapy; Z88.5 Allergy status to narcotic agent; Z88.8 Allergy status to other drugs, medicaments and biological substances ==

== ENCOUNTER 2023-08-08 13:00 | Outpatient (CLI) | payer BC ==
[~2023-08-08] VITALS: Ht 147.3 cm; Wt 78.0 kg
[~2023-08-08 13:00] MED LIST changes: +NS 1,000 ML IV SCH
[2023-08-08 13:05] VITALS: BP 136/72; O2SAT 100
[2023-08-08] MEDS: diphenhydrAMINE 25MG PO PRIOR TO INFUSION PO ONE (13:13)
[2023-08-08] MEDS: ACETAMINOPHEN 650MG PO PRIOR TO INFUSION PO ONE (13:13)
[2023-08-08] MEDS: INFLIXIMAB BIOSIMILAR IV ONE (13:58)
[2023-08-08] MEDS: NS IV ONE (13:58)
[2023-08-08 14:30] VITALS: BP 117/73; O2SAT 98
[2023-08-08 15:00] VITALS: BP 125/79; O2SAT 98
[2023-08-08 15:30] VITALS: BP 120/70; O2SAT 98
[2023-08-08 16:30] VITALS: BP 138/74; O2SAT 98
[2023-08-08 17:30] VITALS: BP 129/79; O2SAT 98
== END 2023-08-08 17:30 ==
LOC: M INFU 13:00
PROVIDERS: ATTEND Internal Medicine Gastroenterology
DX: K50.90 Crohn's disease, unspecified, without complications (principal); Z88.5 Allergy status to narcotic agent; Z88.6 Allergy status to analgesic agent; Z88.8 Allergy status to other drugs, medicaments and biological substances
CPT/HCPCS: 96413; 96415; Q5103

== ENCOUNTER → 2023-08-12 | Outpatient (CLI) | payer BC ==
[~2023-08-12] MED LIST changes: +LIDOCAINE 1% MDV 20ML VIAL As Ordered ONE; -NS 1,000 ML IV SCH; +methylPREDNISolone SUSP 40MG/ML 1ML VIAL (DEPO MEDROL) As Ordered ONE
== END ==
LOC: M IRPRO 13:54
PROVIDERS: ATTEND Orthopaedic Surgery
DX: M70.61 Trochanteric bursitis, right hip (principal); M70.62 Trochanteric bursitis, left hip

== ENCOUNTER → 2023-09-04 | Outpatient (CLI) | payer BC ==
[~2023-09-04] MED LIST changes: +DIPH1TAB81 PO; -DIPH2.5T15 PO; -LIDOCAINE 1% MDV 20ML VIAL As Ordered ONE; -methylPREDNISolone SUSP 40MG/ML 1ML VIAL (DEPO MEDROL) As Ordered ONE
[2023-09-04 12:20] LABS: BASO # 0.1 10^3/uL (0.0-0.2); BASO % 0.9 % (0.0-1.0); EOS # 0.3 10^3/uL (0.0-0.5); EOS % 4.1 % (0.0-3.0); HEMOGLOBIN 14.6 g/dl (13.5-17.5); LYMPH # 2.8 10^3/uL (1.5-5.0); LYMPH % 44.1 % (24.0-44.0); MEAN CORPUSCULAR HEMOGLOBIN 29.9 pg (27.0-33.0); MEAN CORPUSCULAR HGB CONC 33.2 g/dl (32.0-36.5); MEAN CORPUSCULAR VOLUME 90.2 fl (80.0-96.0); MONO # 0.7 10^3/uL (0.0-0.8); MONO % 10.2 % (2.0-8.0); NEUTROPHILS # 2.6 10^3/uL (1.5-8.5); NEUTROPHILS % 40.2 % (36.0-66.0); PLATELET COUNT, AUTOMATED 212 10^3/uL (150-450); RED BLOOD COUNT 4.88 10^6/uL (4.30-6.10); WHITE BLOOD COUNT 6.4 10^3/uL (4.0-10.0)
[2023-09-04 12:39] LABS: PERCENT SATURATION 20.3 % (19.7-50.0)
[2023-09-04 12:42] LABS: FERRITIN 50.6 NG/ML (10.5-307.3)
== END ==
LOC: M LAB 10:20
PROVIDERS: ATTEND Orthopaedic Surgery
DX: M25.552 Pain in left hip (principal)

== ENCOUNTER → 2023-09-04 | Outpatient (CLI) | payer BC | LOC: M LAB 10:22 | PROVIDERS: ATTEND Internal Medicine Gastroenterology | DX: K50.80 Crohn's disease of both small and large intestine without complications (principal) ==

== ENCOUNTER → 2023-09-12 | Outpatient (CLI) | payer BC | LOC: M PAIN 13:00 | PROVIDERS: ATTEND Anesthesiology | DX: M79.12 Myalgia of auxiliary muscles, head and neck (principal); M79.18 Myalgia, other site; Z87.891 Personal history of nicotine dependence; Z79.899 Other long term (current) drug therapy; Z88.5 Allergy status to narcotic agent; Z88.8 Allergy status to other drugs, medicaments and biological substances | CPT/HCPCS: 20553; J0665 ==

== ENCOUNTER 2023-10-15 13:00 | Outpatient (CLI) | payer BC ==
[~2023-10-15 13:00] MED LIST changes: +NS 1,000 ML IV SCH
[2023-10-15 13:10] VITALS: BP 138/77; O2SAT 98
[2023-10-15] MEDS: ACETAMINOPHEN TAB 650MG DOSE (2X325MG) PO ONE (13:33)
[2023-10-15] MEDS: dexameTHASONE 20 MG IV PRIOR TO INFUSION IV ONE (13:33)
[2023-10-15] MEDS: NS IV ONE (14:30)
[2023-10-15] MEDS: INFLIXIMAB BIOSIMILAR IV ONE (14:30)
[2023-10-15 17:25] VITALS: BP 131/76; O2SAT 98
== END 2023-10-15 17:27 | disposition home or self-care (01) ==
LOC: M INFU 13:00
PROVIDERS: ATTEND Internal Medicine Gastroenterology
DX: K50.919 Crohn's disease, unspecified, with unspecified complications (principal); Z88.5 Allergy status to narcotic agent; Z88.8 Allergy status to other drugs, medicaments and biological substances
CPT/HCPCS: 96367; 96413; 96415; J1100; Q5103

== ENCOUNTER → 2023-11-04 | Outpatient (CLI) | payer BC ==
[~2023-11-04] MED LIST changes: -NS 1,000 ML IV SCH
== END ==
LOC: M PAIN 11:45
PROVIDERS: ATTEND Nurse Practitioner Family
DX: M54.2 Cervicalgia (principal); D89.89 Other specified disorders involving the immune mechanism, not elsewhere classified; Z87.891 Personal history of nicotine dependence; Z79.02 Long term (current) use of antithrombotics/antiplatelets; Z79.1 Long term (current) use of non-steroidal anti-inflammatories (NSAID); Z79.52 Long term (current) use of systemic steroids; Z79.891 Long term (current) use of opiate analgesic; Z79.899 Other long term (current) drug therapy; Z88.5 Allergy status to narcotic agent; Z88.6 Allergy status to analgesic agent

== ENCOUNTER 2023-12-10 13:07 | Outpatient (CLI) | payer BC ==
[~2023-12-10 13:07] MED LIST changes: +NS 1,000 ML IV SCH
[2023-12-10 13:15] VITALS: BP 145/83; O2SAT 99
[2023-12-10] MEDS: dexameTHASONE 20 MG IV PRIOR TO INFUSION IV ONE (13:28)
[2023-12-10] MEDS: ACETAMINOPHEN 650MG PO PRIOR TO INFUSION PO ONE (13:28)
[2023-12-10] MEDS: INFLIXIMAB BIOSIMILAR IV ONE (14:25)
[2023-12-10] MEDS: NS IV ONE (14:25)
[2023-12-10 15:00] VITALS: BP 131/62; O2SAT 98
[2023-12-10 15:30] VITALS: BP 130/70; O2SAT 98
[2023-12-10 16:50] VITALS: BP 151/84; O2SAT 98
== END 2023-12-10 16:50 ==
LOC: M INFU 13:07
PROVIDERS: ATTEND Internal Medicine Gastroenterology
DX: K50.90 Crohn's disease, unspecified, without complications (principal)
CPT/HCPCS: 96365; 96366; J1100; Q5103

== ENCOUNTER → 2023-12-12 | Outpatient (CLI) | payer BC ==
[~2023-12-12] MED LIST changes: -NS 1,000 ML IV SCH
== END ==
LOC: M PLARAD 11:00
PROVIDERS: ATTEND Nurse Practitioner Family
DX: M54.2 Cervicalgia (principal)

== ENCOUNTER → 2023-12-23 | Outpatient (CLI) | payer BC | LOC: M PAIN 09:45 | PROVIDERS: ATTEND Nurse Practitioner Family | DX: M47.812 Spondylosis without myelopathy or radiculopathy, cervical region (principal); Z79.1 Long term (current) use of non-steroidal anti-inflammatories (NSAID); Z79.51 Long term (current) use of inhaled steroids; Z79.620 Long term (current) use of immunosuppressive biologic; Z79.899 Other long term (current) drug therapy; Z88.4 Allergy status to anesthetic agent; Z88.5 Allergy status to narcotic agent; Z88.9 Allergy status to unspecified drugs, medicaments and biological substances; J45.909 Unspecified asthma, uncomplicated ==

== ENCOUNTER 2024-02-07 10:37 | Emergency (ER) | payer BC ==
[~2024-02-07] VITALS: Ht 190.5 cm; Wt 134.9 kg
[2024-02-07 10:37] VITALS: TEMP 97.8
[2024-02-07] MEDS ORDERED: ACET650T61 PO (10:49)
[2024-02-07] MEDS ORDERED: XARE10TA (10:49)
[2024-02-07] MEDS ORDERED: OXYC-517 (10:49)
[2024-02-07] MEDS ORDERED: FERR324T2 PO (10:49)
[2024-02-07 13:05] LABS: BASO % 0.5 % (0.0-1.0); EOS # 0.3 10^3/uL (0.0-0.5); EOS % 3.3 % (0.0-3.0); HEMOGLOBIN 12.8 g/dl (13.5-17.5); LYMPH # 2.5 10^3/uL (1.5-5.0); LYMPH % 31.1 % (24.0-44.0); MEAN CORPUSCULAR HEMOGLOBIN 29.8 pg (27.0-33.0); MEAN CORPUSCULAR HGB CONC 32.8 g/dl (32.0-36.5); MEAN CORPUSCULAR VOLUME 90.7 fl (80.0-96.0); MONO # 0.8 10^3/uL (0.0-0.8); MONO % 9.6 % (2.0-8.0); NEUTROPHILS # 4.4 10^3/uL (1.5-8.5); NEUTROPHILS % 54.8 % (36.0-66.0); PLATELET COUNT, AUTOMATED 222 10^3/uL (150-450); WHITE BLOOD COUNT 8.1 10^3/uL (4.0-10.0)
[2024-02-07 13:18] LABS: INR 1.06; PARTIAL THROMBOPLASTIN TIME 25.8 SECONDS (24.8-34.2); PROTHROMBIN TIME 13.5 SECONDS (12.5-14.5)
[2024-02-07 13:27] LABS: CK-MB VALUE MASS < 1.0 NG/ML (<3.6)
[2024-02-07 13:28] LABS: ALBUMIN 3.4 G/DL (3.2-5.2); ALKALINE PHOSPHATASE 68 U/L (46-116); ALT/SGPT 21 U/L (7.0-40); AST/SGOT 18 U/L (<34); BILIRUBIN,DIRECT 0.2 MG/DL (<0.4); BILIRUBIN,TOTAL 0.8 MG/DL (0.3-1.2); BLOOD UREA NITROGEN 18 MG/DL (9-23); CALCIUM LEVEL 9.1 MG/DL (8.5-10.1); CARBON DIOXIDE LEVEL 28 MMOL/L (20-31); CHLORIDE LEVEL 106 MMOL/L (98-107); CPK CREATINE PHOSPHOKINASE 195 U/L (46-171); CREATININE FOR GFR 0.78 MG/DL (0.70-1.30); GLOMERULAR FILTRATION RATE > 60.0 (>56); GLUCOSE, FASTING 86 MG/DL (60-100); MB/CK RELATIVE INDEX 0.51 (< OR =4); POTASSIUM SERUM 4.5 MMOL/L (3.5-5.1); SODIUM LEVEL 138 MMOL/L (136-145); TOTAL PROTEIN 6.8 G/DL (5.7-8.2)
[2024-02-07] MEDS ORDERED: ISOVUE-370 76% 100ML VIAL As Ordered ONE (13:40)
[2024-02-07 14:52] LABS: CK-MB VALUE MASS < 1.0 NG/ML (<3.6)
[2024-02-07 14:54] LABS: CPK CREATINE PHOSPHOKINASE 200 U/L (46-171)
[2024-02-07 16:22] VITALS: O2SAT 99
[2024-02-07 16:30] VITALS: BP 120/63
== END 2024-02-07 17:40 | disposition home or self-care (01) ==
LOC: M ED 10:37
DX: R06.02 Shortness of breath (principal); R05.9 Cough, unspecified; I45.10 Unspecified right bundle-branch block; K50.90 Crohn's disease, unspecified, without complications; J45.909 Unspecified asthma, uncomplicated; M19.90 Unspecified osteoarthritis, unspecified site; D89.9 Disorder involving the immune mechanism, unspecified; Z86.711 Personal history of pulmonary embolism; Z87.891 Personal history of nicotine dependence; Z88.5 Allergy status to narcotic agent; Z88.8 Allergy status to other drugs, medicaments and biological substances; Z79.52 Long term (current) use of systemic steroids; Z79.899 Other long term (current) drug therapy
CPT/HCPCS: 36415; 71045; 71275; 80048; 80076; 82550; 82553; 84484; 85025; 85610; 85730; 86850; 86900; 86901; 87070; 87205; 87486; 87581; 87633; 87798; 93005; 93041; 93970; 94760; 99285; Q9967

== ENCOUNTER 2024-02-13 14:56 | Emergency (ER) | payer BC ==
[~2024-02-13] VITALS: Ht 190.5 cm; Wt 134.0 kg
[~2024-02-13 14:56] MED LIST changes: +ACET650T61 PO; +FERR324T2 PO; +OXYC-517; +XARE10TA
[2024-02-13 14:59] VITALS: TEMP 96.7
[2024-02-13] MEDS: ACETAMINOPHEN *IV* 1,000 MG in IV 1 EA IV ONE (17:02)
[2024-02-13 17:05] LABS: HEMATOCRIT 39.3 % (42.0-52.0); HEMOGLOBIN 13.2 g/dl (13.5-17.5); MEAN CORPUSCULAR HEMOGLOBIN 29.7 pg (27.0-33.0); MEAN CORPUSCULAR HGB CONC 33.6 g/dl (32.0-36.5); MEAN CORPUSCULAR VOLUME 88.3 fl (80.0-96.0); PLATELET COUNT, AUTOMATED 311 10^3/uL (150-450); RED BLOOD COUNT 4.45 10^6/uL (4.30-6.10); WHITE BLOOD COUNT 7.7 10^3/uL (4.0-10.0)
[2024-02-13 17:21] LABS: INR 1.35; PARTIAL THROMBOPLASTIN TIME 31.1 SECONDS (24.8-34.2); PROTHROMBIN TIME 16.3 SECONDS (12.5-14.5)
[2024-02-13 17:34] LABS: ALBUMIN 3.9 G/DL (3.2-5.2); ALKALINE PHOSPHATASE 97 U/L (46-116); ALT/SGPT 20 U/L (7.0-40); AST/SGOT 12 U/L (<34); BILIRUBIN,DIRECT 0.2 MG/DL (<0.4); BILIRUBIN,TOTAL 0.5 MG/DL (0.3-1.2); BLOOD UREA NITROGEN 13 MG/DL (9-23); CALCIUM LEVEL 9.2 MG/DL (8.5-10.1); CARBON DIOXIDE LEVEL 28 MMOL/L (20-31); CHLORIDE LEVEL 104 MMOL/L (98-107); CREATININE FOR GFR 0.83 MG/DL (0.70-1.30); GLOMERULAR FILTRATION RATE > 60.0 (>56); GLUCOSE, FASTING 101 MG/DL (60-100); POTASSIUM SERUM 3.9 MMOL/L (3.5-5.1); SODIUM LEVEL 136 MMOL/L (136-145); TOTAL PROTEIN 7.3 G/DL (5.7-8.2)
[2024-02-13] MEDS ORDERED: ISOVUE-370 76% 100ML VIAL As Ordered ONE (17:54)
[2024-02-13] MEDS ORDERED: SYMB80INH INH (19:42)
[2024-02-13 19:45] VITALS: BP 107/64; O2SAT 97
== END 2024-02-13 19:56 | disposition home or self-care (01) ==
LOC: M ED 14:56
DX: R04.2 Hemoptysis (principal); J98.11 Atelectasis; K50.90 Crohn's disease, unspecified, without complications; A04.72 Enterocolitis due to Clostridium difficile, not specified as recurrent; F10.10 Alcohol abuse, uncomplicated; Z86.718 Personal history of other venous thrombosis and embolism; Z88.5 Allergy status to narcotic agent; Z88.8 Allergy status to other drugs, medicaments and biological substances; Z79.52 Long term (current) use of systemic steroids; Z79.1 Long term (current) use of non-steroidal anti-inflammatories (NSAID); Z79.899 Other long term (current) drug therapy
CPT/HCPCS: 71045; 71275; 80048; 80076; 85027; 85610; 85730; 86850; 86900; 86901; 87070; 87205; 93970; 96374; 99284; J0131; Q9967

== ENCOUNTER 2024-02-18 12:40 | Outpatient (CLI) | payer BC ==
[~2024-02-18] VITALS: Ht 190.5 cm; Wt 127.0 kg
[~2024-02-18 12:40] MED LIST changes: +NS 1,000 ML IV SCH; +SYMB80INH INH; +VANC250C10 PO; -VANC250C3 PO
[2024-02-18 12:45] VITALS: BP 137/69; O2SAT 100
[2024-02-18] MEDS: dexameTHASONE 20 MG IV PRIOR TO INFUSION IV ONE (13:10)
[2024-02-18] MEDS: NS IV ONE (14:12)
[2024-02-18] MEDS: INFLIXIMAB BIOSIMILAR IV ONE (14:12)
[2024-02-18 15:30] VITALS: BP 110/63; O2SAT 95
[2024-02-18 17:20] VITALS: BP 158/91; O2SAT 95
== END 2024-02-18 17:25 ==
LOC: M INFU 12:40
PROVIDERS: ATTEND Internal Medicine Gastroenterology
DX: K50.90 Crohn's disease, unspecified, without complications (principal); Z88.5 Allergy status to narcotic agent; Z88.8 Allergy status to other drugs, medicaments and biological substances
CPT/HCPCS: 96367; 96413; 96415; J1100; Q5103

== ENCOUNTER → 2024-02-23 | Outpatient (CLI) | payer BC ==
[~2024-02-23] MED LIST changes: -NS 1,000 ML IV SCH
== END ==
LOC: M PAIN 14:00
PROVIDERS: ATTEND Nurse Practitioner Family
DX: M47.812 Spondylosis without myelopathy or radiculopathy, cervical region (principal); G89.29 Other chronic pain; M54.2 Cervicalgia; K50.90 Crohn's disease, unspecified, without complications; M19.90 Unspecified osteoarthritis, unspecified site; J45.909 Unspecified asthma, uncomplicated; Z87.891 Personal history of nicotine dependence; Z79.01 Long term (current) use of anticoagulants; Z79.891 Long term (current) use of opiate analgesic; Z79.899 Other long term (current) drug therapy; Z88.5 Allergy status to narcotic agent; Z88.8 Allergy status to other drugs, medicaments and biological substances

== ENCOUNTER → 2024-03-02 | Outpatient (REF) | payer BC ==
[2024-03-02 19:23] LABS: ALBUMIN 4.3 G/DL (3.2-5.2); BILIRUBIN,DIRECT 0.2 MG/DL (<0.4); BILIRUBIN,TOTAL 0.6 MG/DL (0.3-1.2); TOTAL PROTEIN 7.8 G/DL (5.7-8.2)
== END ==
LOC: M LAB REF 18:27
PROVIDERS: ATTEND Internal Medicine Nephrology
DX: N18.2 Chronic kidney disease, stage 2 (mild) (principal); K50.00 Crohn's disease of small intestine without complications; K76.0 Fatty (change of) liver, not elsewhere classified

== ENCOUNTER → 2024-04-14 | Outpatient (CLI) | payer BC ==
[~2024-04-14] VITALS: Ht 190.5 cm; Wt 132.7 kg
[~2024-04-14] MED LIST changes: +HYOS0.3723 PO; -HYOS0.374 PO; +NS 1,000 ML IV SCH; -VANC250C10 PO; +VANC250C12 PO
[2024-04-14 13:30] VITALS: BP 147/81; O2SAT 99
[2024-04-14] MEDS: dexameTHASONE 20 MG IV PRIOR TO INFUSION IV ONE (13:52)
[2024-04-14] MEDS: ACETAMINOPHEN 325 MG TAB PO ONE (13:52)
[2024-04-14] MEDS: NS IV ONE (14:17)
[2024-04-14] MEDS: INFLIXIMAB BIOSIMILAR IV ONE (14:17)
[2024-04-14 15:15] VITALS: BP 120/67; O2SAT 100
[2024-04-14 16:47] VITALS: BP 148/76; O2SAT 97
== END ==
LOC: M INFU 12:59
PROVIDERS: ATTEND Internal Medicine Gastroenterology
DX: K50.90 Crohn's disease, unspecified, without complications (principal); Z88.5 Allergy status to narcotic agent; Z88.8 Allergy status to other drugs, medicaments and biological substances
CPT/HCPCS: 96375; 96413; 96415; J1100; Q5103

== ENCOUNTER 2024-05-03 10:46 | Emergency (ER) | payer BC ==
[~2024-05-03] VITALS: Ht 190.5 cm; Wt 131.8 kg
[~2024-05-03 10:46] MED LIST changes: -NS 1,000 ML IV SCH
[2024-05-03 10:50] VITALS: O2SAT 98
[2024-05-03] MEDS ORDERED: ZITHTAB PO (13:00)
[2024-05-03 13:09] VITALS: BP 123/81; TEMP 98.4
== END 2024-05-03 13:11 | disposition home or self-care (01) ==
LOC: M ED 10:46
DX: J06.9 Acute upper respiratory infection, unspecified (principal); Z86.79 Personal history of other diseases of the circulatory system; Z88.5 Allergy status to narcotic agent; Z88.8 Allergy status to other drugs, medicaments and biological substances; Z91.018 Allergy to other foods; Z79.52 Long term (current) use of systemic steroids; Z79.1 Long term (current) use of non-steroidal anti-inflammatories (NSAID); Z79.2 Long term (current) use of antibiotics; Z79.899 Other long term (current) drug therapy

== ENCOUNTER 2024-05-06 09:50 | Emergency (ER) | payer BC ==
[~2024-05-06] VITALS: Ht 190.5 cm; Wt 127.3 kg
[~2024-05-06 09:50] MED LIST changes: +ZITHTAB PO
[2024-05-06 11:45] LABS: BASO % 0.2 % (0.0-1.0); EOS # 0.1 10^3/uL (0.0-0.5); EOS % 0.4 % (0.0-3.0); HEMOGLOBIN 13.9 g/dl (13.5-17.5); LYMPH % 8.5 % (24.0-44.0); MEAN CORPUSCULAR HEMOGLOBIN 29.5 pg (27.0-33.0); MEAN CORPUSCULAR HGB CONC 33.1 g/dl (32.0-36.5); MEAN CORPUSCULAR VOLUME 89.2 fl (80.0-96.0); MONO # 0.8 10^3/uL (0.0-0.8); MONO % 6.8 % (2.0-8.0); NEUTROPHILS # 10.3 10^3/uL (1.5-8.5); NEUTROPHILS % 83.5 % (36.0-66.0); PLATELET COUNT, AUTOMATED 222 10^3/uL (150-450); RED BLOOD COUNT 4.71 10^6/uL (4.30-6.10); WHITE BLOOD COUNT 12.3 10^3/uL (4.0-10.0)
[2024-05-06 12:10] LABS: BLOOD UREA NITROGEN 15 MG/DL (9-23); CALCIUM LEVEL 9.4 MG/DL (8.5-10.1); CARBON DIOXIDE LEVEL 24 MMOL/L (20-31); CHLORIDE LEVEL 105 MMOL/L (98-107); CREATININE FOR GFR 0.76 MG/DL (0.70-1.30); GLOMERULAR FILTRATION RATE > 60.0 (>56); GLUCOSE, FASTING 107 MG/DL (60-100); POTASSIUM SERUM 4.4 MMOL/L (3.5-5.1); SODIUM LEVEL 139 MMOL/L (136-145)
[2024-05-06 12:18] LABS: PROCALCITONIN <0.04 ng/ml
[2024-05-06] MEDS ORDERED: CEFD300C PO (13:30)
[2024-05-06] MEDS: cefTRIAXone SOD 1 GM in DEXTROSE 5% (D5W) ADV/MINI-BAG 50 ML IV ONE (13:51)
[2024-05-06 14:30] VITALS: BP 112/56; TEMP 97.9; O2SAT 97
== END 2024-05-06 14:39 | disposition home or self-care (01) ==
LOC: EDBD 09:50 → M ED 09:50
DX: J18.1 Lobar pneumonia, unspecified organism (principal); K21.9 Gastro-esophageal reflux disease without esophagitis; K58.9 Irritable bowel syndrome, unspecified; M54.50 Low back pain, unspecified; J45.909 Unspecified asthma, uncomplicated; Z79.52 Long term (current) use of systemic steroids; Z79.1 Long term (current) use of non-steroidal anti-inflammatories (NSAID); Z79.899 Other long term (current) drug therapy; Z91.018 Allergy to other foods; Z88.8 Allergy status to other drugs, medicaments and biological substances; Z86.79 Personal history of other diseases of the circulatory system; Z88.5 Allergy status to narcotic agent
CPT/HCPCS: 71046; 71250; 80048; 83605; 84145; 85025; 87040; 87486; 87581; 87633; 87798; 96365; 99284; J0696

== ENCOUNTER 2024-05-09 12:38 | Emergency (ER) | payer BC ==
[~2024-05-09] VITALS: Ht 190.5 cm; Wt 130.5 kg
[~2024-05-09 12:38] MED LIST changes: +CEFD300C PO
[2024-05-09] MEDS ORDERED: PRED10PA PO (12:51)
[2024-05-09] MEDS ORDERED: GLYCCAP PO (12:51)
[2024-05-09] MEDS: ACETAMINOPHEN 500 MG TAB PO ONE (15:20)
[2024-05-09 15:30] VITALS: BP 125/76; TEMP 98; O2SAT 97
== END 2024-05-09 15:35 | disposition home or self-care (01) ==
LOC: M ED 12:38
DX: K21.9 Gastro-esophageal reflux disease without esophagitis (principal); J18.9 Pneumonia, unspecified organism; K50.90 Crohn's disease, unspecified, without complications; I10 Essential (primary) hypertension; D50.9 Iron deficiency anemia, unspecified; Z79.82 Long term (current) use of aspirin; Z79.899 Other long term (current) drug therapy; Z88.5 Allergy status to narcotic agent; Z88.8 Allergy status to other drugs, medicaments and biological substances; Z91.018 Allergy to other foods

== ENCOUNTER 2024-06-09 11:40 | Outpatient (CLI) | payer BC ==
[~2024-06-09] VITALS: Ht 190.5 cm; Wt 127.2 kg
[~2024-06-09 11:40] MED LIST changes: +GLYCCAP PO; +NS (Normal Saline) 0.9% 1,000 ML IV SCH; +PRED10PA PO
[2024-06-09] MEDS: ACETAMINOPHEN 325 MG TAB PO ONE (12:11)
[2024-06-09] MEDS: dexameTHASONE 20 MG IV PRIOR TO INFUSION IV ONE (12:11)
[2024-06-09] MEDS: INFLIXIMAB BIOSIMILAR IV ONE (12:47)
[2024-06-09] MEDS: NS IV ONE (12:47)
[2024-06-09 15:00] VITALS: BP 119/69; O2SAT 98
== END 2024-06-09 15:10 ==
LOC: M INFU 11:40
PROVIDERS: ATTEND Internal Medicine Gastroenterology
DX: K50.90 Crohn's disease, unspecified, without complications (principal); Z88.5 Allergy status to narcotic agent; Z88.8 Allergy status to other drugs, medicaments and biological substances; Z91.018 Allergy to other foods
CPT/HCPCS: 96375; 96413; 96415; J1100; Q5103

== ENCOUNTER → 2024-07-08 | Outpatient (CLI) | payer BC ==
[~2024-07-08] MED LIST changes: -NS (Normal Saline) 0.9% 1,000 ML IV SCH; +VANC125C13 PO; -VANC125C3 PO
== END ==
LOC: M RAD 07:46
PROVIDERS: ATTEND Orthopaedic Surgery
DX: M25.511 Pain in right shoulder (principal); M67.813 Other specified disorders of tendon, right shoulder; M19.011 Primary osteoarthritis, right shoulder; S43.431A Superior glenoid labrum lesion of right shoulder, initial encounter

== ENCOUNTER 2024-08-01 20:02 | Emergency (ER) | payer BC ==
[~2024-08-01] VITALS: Ht 190.5 cm; Wt 143.4 kg
[2024-08-01] MEDS: methylPREDNISolone 125MG 2ML VIAL IV ONE (22:46)
[2024-08-01 23:07] LABS: BASO # 0.1 10^3/uL (0.0-0.2); BASO % 0.8 % (0.0-1.0); EOS # 0.2 10^3/uL (0.0-0.5); EOS % 2.5 % (0.0-3.0); HEMATOCRIT 42.2 % (42.0-52.0); HEMOGLOBIN 14.3 g/dl (13.5-17.5); LYMPH # 3.6 10^3/uL (1.5-5.0); LYMPH % 47.7 % (24.0-44.0); MEAN CORPUSCULAR HEMOGLOBIN 29.7 pg (27.0-33.0); MEAN CORPUSCULAR HGB CONC 33.9 g/dl (32.0-36.5); MEAN CORPUSCULAR VOLUME 87.6 fl (80.0-96.0); MONO % 12.7 % (2.0-8.0); NEUTROPHILS # 2.7 10^3/uL (1.5-8.5); PLATELET COUNT, AUTOMATED 246 10^3/uL (150-450); RED BLOOD COUNT 4.82 10^6/uL (4.30-6.10); WHITE BLOOD COUNT 7.5 10^3/uL (4.0-10.0)
[2024-08-01 23:36] LABS: C REACTIVE PROTEIN QUANTITATIV < 0.50 MG/DL (<1.0)
[2024-08-01 23:37] LABS: BLOOD UREA NITROGEN 21 MG/DL (9-23); CALCIUM LEVEL 8.9 MG/DL (8.5-10.1); CARBON DIOXIDE LEVEL 24 MMOL/L (20-31); CHLORIDE LEVEL 105 MMOL/L (98-107); CREATININE FOR GFR 0.98 MG/DL (0.70-1.30); GLOMERULAR FILTRATION RATE > 60.0 (>56); GLUCOSE, FASTING 103 MG/DL (60-100); POTASSIUM SERUM 3.8 MMOL/L (3.5-5.1); SODIUM LEVEL 140 MMOL/L (136-145)
[2024-08-01 23:43] LABS: PROCALCITONIN <0.04 ng/ml
[2024-08-02] MEDS: diphenhydrAMINE 50MG/ML VIAL IV ONE (00:06)
[2024-08-02] MEDS ORDERED: PRED20TA PO (00:24)
[2024-08-02 00:30] VITALS: BP 142/70; TEMP 98.2; O2SAT 94
[2024-08-04 16:18] LABS: RUBEOLA IgG ANTIBODY 26.4 AU/mL (>16.49)
== END 2024-08-02 00:35 | disposition home or self-care (01) ==
LOC: M ED 20:02
DX: K12.2 Cellulitis and abscess of mouth (principal); H10.33 Unspecified acute conjunctivitis, bilateral; B09 Unspecified viral infection characterized by skin and mucous membrane lesions; J45.909 Unspecified asthma, uncomplicated; M19.90 Unspecified osteoarthritis, unspecified site; K21.9 Gastro-esophageal reflux disease without esophagitis; K50.90 Crohn's disease, unspecified, without complications; Z86.711 Personal history of pulmonary embolism; Z79.52 Long term (current) use of systemic steroids; Z79.1 Long term (current) use of non-steroidal anti-inflammatories (NSAID); Z79.899 Other long term (current) drug therapy; Z88.5 Allergy status to narcotic agent; Z88.8 Allergy status to other drugs, medicaments and biological substances; Z91.018 Allergy to other foods
CPT/HCPCS: 71045; 80048; 84145; 85025; 86140; 86765; 87486; 87581; 87633; 87798; 96374; 96375; 99284; J1200; J2919

== ENCOUNTER 2024-08-07 11:00 | Emergency (ER) | payer BC ==
[~2024-08-07] VITALS: Ht 190.5 cm; Wt 138.0 kg
[2024-08-07 13:17] VITALS: BP 129/77; TEMP 96.4; O2SAT 98
[2024-08-07] MEDS ORDERED: PRED20TA PO (13:21)
== END 2024-08-07 13:32 | disposition home or self-care (01) ==
LOC: M ED 11:00
DX: R09.81 Nasal congestion (principal); K21.9 Gastro-esophageal reflux disease without esophagitis; K50.90 Crohn's disease, unspecified, without complications; F10.10 Alcohol abuse, uncomplicated; Z88.5 Allergy status to narcotic agent; Z88.8 Allergy status to other drugs, medicaments and biological substances; Z91.018 Allergy to other foods; Z79.52 Long term (current) use of systemic steroids; Z79.1 Long term (current) use of non-steroidal anti-inflammatories (NSAID); Z79.899 Other long term (current) drug therapy

== ENCOUNTER 2024-08-15 17:42 | Observation (INO) | payer BC ==
[~2024-08-15] VITALS: Ht 190.5 cm; Wt 139.3 kg
[~2024-08-15 17:42] MED LIST changes: -FURO40TA2; +FURO40TA2 PO
[2024-08-15] MEDS: AMPICILLIN SOD/SULBACTAM SOD 3 GM in DEXTROSE 5% (D5W) MINI-BAG PLU 100 ML IV ONE (19:55)
[2024-08-15] MEDS: NS (Normal Saline) 0.9% 1,000 ML IV SCH (20:10)
[2024-08-15] MEDS: dexAMETHasone 20MG/5ML VIAL IV ONE (20:13)
[2024-08-15] MEDS: ACETAMINOPHEN *IV* 1,000 MG in IV 1 EA IV ONE (20:17)
[2024-08-15 20:24] LABS: BASO # 0.1 10^3/uL (0.0-0.2); BASO % 0.6 % (0.0-1.0); EOS # 0.1 10^3/uL (0.0-0.5); HEMATOCRIT 45.2 % (42.0-52.0); HEMOGLOBIN 15.2 g/dl (13.5-17.5); LYMPH # 3.4 10^3/uL (1.5-5.0); LYMPH % 29.8 % (24.0-44.0); MEAN CORPUSCULAR HEMOGLOBIN 29.5 pg (27.0-33.0); MEAN CORPUSCULAR HGB CONC 33.6 g/dl (32.0-36.5); MEAN CORPUSCULAR VOLUME 87.6 fl (80.0-96.0); MONO # 1.2 10^3/uL (0.0-0.8); MONO % 10.3 % (2.0-8.0); NEUTROPHILS # 6.6 10^3/uL (1.5-8.5); NEUTROPHILS % 57.1 % (36.0-66.0); PLATELET COUNT, AUTOMATED 225 10^3/uL (150-450); RED BLOOD COUNT 5.16 10^6/uL (4.30-6.10); WHITE BLOOD COUNT 11.5 10^3/uL (4.0-10.0)
[2024-08-15] MEDS: FAMOTIDINE 20 MG TAB PO ONE (20:25)
[2024-08-15 20:37] LABS: INR 0.91; PARTIAL THROMBOPLASTIN TIME 23.3 SECONDS (24.8-34.2); PROTHROMBIN TIME 12.6 SECONDS (12.5-14.5)
[2024-08-15 20:48] LABS: ALBUMIN 3.9 G/DL (3.2-5.2); ALKALINE PHOSPHATASE 74 U/L (40-129); ALT/SGPT 28 U/L (7.0-40); AST/SGOT 17 U/L (<34); BILIRUBIN,TOTAL 0.7 MG/DL (0.3-1.2); BLOOD UREA NITROGEN 21 MG/DL (9-23); C REACTIVE PROTEIN QUANTITATIV 1.25 MG/DL (<1.0); CALCIUM LEVEL 8.9 MG/DL (8.5-10.1); CARBON DIOXIDE LEVEL 24 MMOL/L (20-31); CHLORIDE LEVEL 103 MMOL/L (98-107); CREATININE FOR GFR 0.87 MG/DL (0.70-1.30); GLOMERULAR FILTRATION RATE > 60.0 (>56); GLUCOSE, FASTING 90 MG/DL (60-100); POTASSIUM SERUM 4.5 MMOL/L (3.5-5.1); SODIUM LEVEL 138 MMOL/L (136-145); TOTAL PROTEIN 7.3 G/DL (5.7-8.2)
[2024-08-15] MEDS ORDERED: ISOVUE-370 76% 100ML VIAL As Ordered ONE (20:54)
[2024-08-15 22:35] LABS: MONO SCRN NEGATIVE (NEGATIVE)
[2024-08-15] MEDS: LIDOCAINE VISCOUS 2% SOLN 15ML UDC SS ONE (23:22)
[2024-08-16] MEDS ORDERED: MOM 30ML SUSPENSION UDC PO PRN (01:25)
[2024-08-16] MEDS ORDERED: ALBUTEROL 90 MCG/ACT 8GM HFA INHALER INH PRN (01:35)
[2024-08-16] MEDS ORDERED: diphenhydrAMINE 25MG CAP PO PRN (01:35)
[2024-08-16] MEDS: NS 0.45% 1,000 ML IV SCH (01:54)
[2024-08-16] MEDS: AMPICILLIN SOD/SULBACTAM SOD 3 GM in DEXTROSE 5% (D5W) MINI-BAG PLU 100 ML IV SCH (01:55)
[2024-08-16] MEDS ORDERED: ALBU8.5H INH (02:01)
[2024-08-16] MEDS ORDERED: DIPH-435 PO (02:01)
[2024-08-16] MEDS ORDERED: POLY30DR2 OU (02:01)
[2024-08-16] MEDS ORDERED: FLUT15.820 NARES (02:01)
[2024-08-16] MEDS ORDERED: IBUP200C25 PO (02:01)
[2024-08-16] MEDS ORDERED: HOME MED LIST COMPLETE! XX SCH (02:05)
[2024-08-16] MEDS: ACETAMINOPHEN 325 MG TAB PO PRN (02:05)
[2024-08-16] MEDS: dexAMETHasone 4 MG TAB PO SCH (05:54)
[2024-08-16] MEDS: LIDOCAINE VISCOUS 2% SOLN 15ML UDC SSP PRN (05:55)
[2024-08-16] MEDS: SPIRONOLACTONE 25 MG TAB PO SCH (08:06)
[2024-08-16] MEDS: FUROSEMIDE 40 MG TAB PO SCH (08:06)
[2024-08-16] MEDS: PANTOPRAZOLE 40MG TAB (PROTONIX) PO SCH (08:06)
[2024-08-16] MEDS: ENOXAPARIN 40MG/0.4ML SYRINGE (J1650 PER 10MG) SC SCH (08:06)
[2024-08-16] MEDS: NYSTATIN 500,000U/5ML SUSP UDC SS SCH (09:00)
[2024-08-16] MEDS: FLUCONAZOLE 100 MG TAB PO ONE (13:22)
[2024-08-16] MEDS: LACTOBACILLUS ACIDOPHILUS CAP (BACID) PO SCH (13:22)
[2024-08-16] MEDS ORDERED: dexAMETHasone 4 MG TAB PO SCH (17:00)
[2024-08-16] MEDS ORDERED: LACTOBACILLUS ACIDOPHILUS CAP (BACID) PO SCH (18:00)
[2024-08-17] MEDS ORDERED: FLUTICASONE PROP 0.05% NASAL SPRAY 16 GM (FLONASE) NARES SCH (09:00)
[2024-08-17] MEDS: FLUCONAZOLE 100 MG TAB PO SCH (09:36)
[2024-08-17 09:48] LABS: BASO % 0.1 % (0.0-1.0); EOS % 0.1 % (0.0-3.0); HEMATOCRIT 44.9 % (42.0-52.0); LYMPH # 2.5 10^3/uL (1.5-5.0); LYMPH % 25.7 % (24.0-44.0); MEAN CORPUSCULAR HEMOGLOBIN 29.3 pg (27.0-33.0); MEAN CORPUSCULAR HGB CONC 33.4 g/dl (32.0-36.5); MEAN CORPUSCULAR VOLUME 87.7 fl (80.0-96.0); MONO # 0.9 10^3/uL (0.0-0.8); MONO % 9.3 % (2.0-8.0); NEUTROPHILS # 6.4 10^3/uL (1.5-8.5); NEUTROPHILS % 64.2 % (36.0-66.0); PLATELET COUNT, AUTOMATED 224 10^3/uL (150-450); RED BLOOD COUNT 5.12 10^6/uL (4.30-6.10); WHITE BLOOD COUNT 9.9 10^3/uL (4.0-10.0)
[2024-08-17 10:23] LABS: BLOOD UREA NITROGEN 26 MG/DL (9-23); CALCIUM LEVEL 8.8 MG/DL (8.5-10.1); CARBON DIOXIDE LEVEL 26 MMOL/L (20-31); CHLORIDE LEVEL 103 MMOL/L (98-107); CREATININE FOR GFR 0.92 MG/DL (0.70-1.30); GLOMERULAR FILTRATION RATE > 60.0 (>56); GLUCOSE, FASTING 126 MG/DL (60-100); POTASSIUM SERUM 4.3 MMOL/L (3.5-5.1); SODIUM LEVEL 138 MMOL/L (136-145)
[2024-08-17] MEDS ORDERED: OXYMETAZOLINE 0.05% NASAL SPRAY PRN (12:05)
[2024-08-17] MEDS ORDERED: MAGICMW SS (12:55)
[2024-08-17] MEDS ORDERED: OXYM05SP (12:55)
[2024-08-17] MEDS ORDERED: FLUTISP NARES (12:55)
[2024-08-17] MEDS ORDERED: FLUC100T3 PO (12:55)
[2024-08-17] MEDS: MAGIC MOUTHWASH 5ML ORAL SYRINGE SS PRN (13:29)
[2024-08-17] MEDS ORDERED: MAGNESIUM SULFATE GRANULES (EPSOM SALT) 1LB TOP PRN (14:25)
[2024-08-17 15:02] VITALS: BP 144/89; TEMP 98; O2SAT 98
== END 2024-08-17 15:42 | disposition home or self-care (01) ==
LOC: M ED 17:42 → M ED INP 17:43
PROVIDERS: ADMIT Family Medicine; ATTEND Family Medicine
DX: R13.10 Dysphagia, unspecified (principal); B37.0 Candidal stomatitis; E66.9 Obesity, unspecified; E78.5 Hyperlipidemia, unspecified; J45.909 Unspecified asthma, uncomplicated; K50.90 Crohn's disease, unspecified, without complications; L40.59 Other psoriatic arthropathy; K21.9 Gastro-esophageal reflux disease without esophagitis; Z86.711 Personal history of pulmonary embolism; J32.9 Chronic sinusitis, unspecified; Z79.899 Other long term (current) drug therapy
CPT/HCPCS: 36415; 70487; 70491; 71260; 80048; 80053; 85025; 85610; 85730; 86140; 86308; 87389; 87535; 87880; 93005; 96361; 96365; 96366; 96372; 96375; 99285; J0131; J0295; J1100; J1650; Q9967

== ENCOUNTER 2024-08-20 11:16 | Observation (INO) | payer BC ==
[~2024-08-20] VITALS: Ht 190.5 cm; Wt 131.0 kg
[~2024-08-20 11:16] MED LIST changes: +ALBU8.5H INH; +DIPH-435 PO; +FLUC100T3 PO; +FLUT15.820 NARES; +FLUTISP NARES; +IBUP200C25 PO; +MAGICMW SS; +OXYM05SP; +POLY30DR2 OU
[2024-08-20 15:39] LABS: HEMATOCRIT 49.8 % (42.0-52.0); HEMOGLOBIN 16.7 g/dl (13.5-17.5); MEAN CORPUSCULAR HEMOGLOBIN 29.4 pg (27.0-33.0); MEAN CORPUSCULAR HGB CONC 33.5 g/dl (32.0-36.5); MEAN CORPUSCULAR VOLUME 87.7 fl (80.0-96.0); PLATELET COUNT, AUTOMATED 202 10^3/uL (150-450); RED BLOOD COUNT 5.68 10^6/uL (4.30-6.10); WHITE BLOOD COUNT 6.3 10^3/uL (4.0-10.0)
[2024-08-20] MEDS: NS (Normal Saline) 0.9% 1,000 ML IV ONE (15:52)
[2024-08-20 16:06] LABS: BLOOD UREA NITROGEN 24 MG/DL (9-23); CARBON DIOXIDE LEVEL 29 MMOL/L (20-31); CHLORIDE LEVEL 98 MMOL/L (98-107); CREATININE FOR GFR 1.08 MG/DL (0.70-1.30); GLOMERULAR FILTRATION RATE > 60.0 (>56); GLUCOSE, FASTING 100 MG/DL (60-100); POTASSIUM SERUM 4.5 MMOL/L (3.5-5.1); SODIUM LEVEL 134 MMOL/L (136-145)
[2024-08-20 16:12] LABS: EOSINOPHILS 1 % (0-3); LYMPHOCYTES 30 % (16-44); MONOCYTES 3 % (0-5); NEUTROPHILS 64 % (28-66); PLATELET ESTIMATE NORMAL (NORMAL)
[2024-08-20] MEDS: KETOROLAC 30 MG/ML 1ML VIAL IV ONE (16:55)
[2024-08-20] MEDS ORDERED: FLON1SPR NARES (17:42)
[2024-08-20] MEDS ORDERED: LIDOCAINE VISCOUS 2% SOLN 15ML UDC SS PRN (17:50)
[2024-08-20] MEDS: LIDOCAINE VISCOUS 2% SOLN 15ML UDC PO PRN (17:52)
[2024-08-20] MEDS ORDERED: HOME MED LIST COMPLETE! XX SCH (18:20)
[2024-08-20] MEDS ORDERED: LIDOCAINE 2% 100MG/5ML SDV (FOR ANES.) As Ordered ONE (18:41)
[2024-08-20] MEDS ORDERED: fentaNYL 100 MCG/2 ML INJECTION As Ordered ONE (18:41)
[2024-08-20] MEDS ORDERED: propofoL 200 MG/20 ML VIAL As Ordered ONE (18:41)
[2024-08-20 18:51] LABS: INR 0.98; PARTIAL THROMBOPLASTIN TIME 25.2 SECONDS (24.8-34.2); PROTHROMBIN TIME 13.3 SECONDS (12.5-14.5)
[2024-08-20] MEDS ORDERED: GLYCOPYRROLATE INJ 0.2 MG/ML 2 ML VIAL As Ordered ONE (19:02)
[2024-08-20 19:11] LABS: ALBUMIN 3.8 G/DL (3.2-5.2); BILIRUBIN,DIRECT 0.2 MG/DL (<0.4); BILIRUBIN,TOTAL 0.8 MG/DL (0.3-1.2); TOTAL PROTEIN 7.6 G/DL (5.7-8.2)
[2024-08-20 20:00] VITALS: BP 142/85; TEMP 97; O2SAT 97
[2024-08-20] MEDS ORDERED: FUROSEMIDE 40 MG TAB PO PRN (20:15)
[2024-08-20] MEDS ORDERED: diphenhydrAMINE 25MG CAP PO PRN ×2 (20:15→21:20)
[2024-08-20 20:30] VITALS: BP 142/85; TEMP 97; O2SAT 96
[2024-08-20 21:00] VITALS: BP 144/85; TEMP 97.2; O2SAT 96
[2024-08-20] MEDS: NYSTATIN 500,000U/5ML SUSP UDC SS SCH (21:54)
[2024-08-20] MEDS: FLUTICASONE PROP 0.05% NASAL SPRAY 16 GM (FLONASE) NARES SCH (21:54)
[2024-08-20] MEDS: MAGIC MOUTHWASH 5ML ORAL SYRINGE SS PRN (21:54)
[2024-08-20] MEDS: ACETAMINOPHEN *IV* 1,000 MG in IV 1 EA IV ONE (21:55)
[2024-08-20 22:00] VITALS: BP 137/83; TEMP 97; O2SAT 90
[2024-08-20 23:00] VITALS: BP 136/81; TEMP 97.2; O2SAT 97
[2024-08-21] VITALS (7 sets, daily range): BP systolic 133–139; BP diastolic 76–81; TEMP 97–97.5; O2SAT 94–100
[2024-08-21] MEDS: KETOROLAC 30 MG/ML 1ML VIAL IV SCH (01:21)
[2024-08-21 06:26] LABS: HEMATOCRIT 40.7 % (42.0-52.0); HEMOGLOBIN 13.7 g/dl (13.5-17.5); MEAN CORPUSCULAR HEMOGLOBIN 29.6 pg (27.0-33.0); MEAN CORPUSCULAR HGB CONC 33.7 g/dl (32.0-36.5); MEAN CORPUSCULAR VOLUME 87.9 fl (80.0-96.0); PLATELET COUNT, AUTOMATED 162 10^3/uL (150-450); RED BLOOD COUNT 4.63 10^6/uL (4.30-6.10); WHITE BLOOD COUNT 6.7 10^3/uL (4.0-10.0)
[2024-08-21 06:44] LABS: ALBUMIN 3.2 G/DL (3.2-5.2); ALKALINE PHOSPHATASE 59 U/L (40-129); ALT/SGPT 27 U/L (7.0-40); AST/SGOT 18 U/L (<34); BILIRUBIN,TOTAL 0.7 MG/DL (0.3-1.2); BLOOD UREA NITROGEN 26 MG/DL (9-23); CALCIUM LEVEL 8.1 MG/DL (8.5-10.1); CARBON DIOXIDE LEVEL 26 MMOL/L (20-31); CHLORIDE LEVEL 103 MMOL/L (98-107); CREATININE FOR GFR 1.05 MG/DL (0.70-1.30); GLOMERULAR FILTRATION RATE > 60.0 (>56); GLUCOSE, FASTING 86 MG/DL (60-100); POTASSIUM SERUM 4.1 MMOL/L (3.5-5.1); SODIUM LEVEL 136 MMOL/L (136-145); TOTAL PROTEIN 6.5 G/DL (5.7-8.2)
[2024-08-21] MEDS: PANTOPRAZOLE 40MG VIAL IV SCH (08:22)
[2024-08-21] MEDS: FLUCONAZOLE 100 MG TAB PO SCH (09:28)
[2024-08-21] MEDS: MULTIVITAMINS/MINERALS THERAP 1 TAB PO SCH (09:28)
[2024-08-21] MEDS: FUROSEMIDE 40 MG TAB PO SCH (09:29)
[2024-08-21] MEDS: SPIRONOLACTONE 25 MG TAB PO SCH (09:30)
[2024-08-21] MEDS: MORPHINE 2 MG/ML 1ML VIAL IV PRN (09:57)
[2024-08-21] MEDS ORDERED: ISOVUE-370 76% 100ML VIAL As Ordered ONE (10:01)
[2024-08-21] MEDS: KETOROLAC 30 MG/ML 1ML VIAL IV ONE (17:35)
[2024-08-21] MEDS: OXYMETAZOLINE 0.05% NASAL SPRAY PRN (23:58)
[2024-08-22 04:00] VITALS: BP 125/69; TEMP 97.2; O2SAT 97
[2024-08-22 12:00] VITALS: BP 143/85; TEMP 97.7; O2SAT 97
[2024-08-22 20:43] VITALS: BP 144/81; TEMP 97.5; O2SAT 96
[2024-08-23 03:44] VITALS: BP 146/79; TEMP 97.3; O2SAT 96
[2024-08-23 06:19] LABS: HEMATOCRIT 37.5 % (42.0-52.0); HEMOGLOBIN 12.5 g/dl (13.5-17.5); MEAN CORPUSCULAR HEMOGLOBIN 29.2 pg (27.0-33.0); MEAN CORPUSCULAR HGB CONC 33.3 g/dl (32.0-36.5); MEAN CORPUSCULAR VOLUME 87.6 fl (80.0-96.0); PLATELET COUNT, AUTOMATED 177 10^3/uL (150-450); RED BLOOD COUNT 4.28 10^6/uL (4.30-6.10); WHITE BLOOD COUNT 6.4 10^3/uL (4.0-10.0)
[2024-08-23 06:41] LABS: ALBUMIN 3.1 G/DL (3.2-5.2); ALKALINE PHOSPHATASE 61 U/L (40-129); ALT/SGPT 23 U/L (7.0-40); AST/SGOT 17 U/L (<34); BILIRUBIN,TOTAL 0.7 MG/DL (0.3-1.2); BLOOD UREA NITROGEN 15 MG/DL (9-23); CALCIUM LEVEL 7.8 MG/DL (8.5-10.1); CARBON DIOXIDE LEVEL 23 MMOL/L (20-31); CHLORIDE LEVEL 104 MMOL/L (98-107); CREATININE FOR GFR 1.03 MG/DL (0.70-1.30); GLOMERULAR FILTRATION RATE > 60.0 (>56); GLUCOSE, FASTING 101 MG/DL (60-100); SODIUM LEVEL 137 MMOL/L (136-145); TOTAL PROTEIN 6.2 G/DL (5.7-8.2)
[2024-08-23] MEDS: guaiFENesin ER TABLET 600 MG TAB PO SCH (10:15)
[2024-08-23 12:00] VITALS: BP 148/80; TEMP 97.5; O2SAT 92; O2SAT 99
[2024-08-23 20:08] VITALS: BP 138/78; TEMP 97.9; O2SAT 98
[2024-08-24 04:08] VITALS: BP 132/76; TEMP 97.3; O2SAT 95
[2024-08-24 05:55] LABS: HEMATOCRIT 37.9 % (42.0-52.0); HEMOGLOBIN 12.6 g/dl (13.5-17.5); MEAN CORPUSCULAR HGB CONC 33.2 g/dl (32.0-36.5); MEAN CORPUSCULAR VOLUME 87.1 fl (80.0-96.0); PLATELET COUNT, AUTOMATED 167 10^3/uL (150-450); RED BLOOD COUNT 4.35 10^6/uL (4.30-6.10); WHITE BLOOD COUNT 6.5 10^3/uL (4.0-10.0)
[2024-08-24 06:18] LABS: ALBUMIN 3.4 G/DL (3.2-5.2); ALKALINE PHOSPHATASE 66 U/L (40-129); ALT/SGPT 24 U/L (7.0-40); AST/SGOT 15 U/L (<34); BILIRUBIN,TOTAL 0.7 MG/DL (0.3-1.2); BLOOD UREA NITROGEN 16 MG/DL (9-23); CALCIUM LEVEL 7.9 MG/DL (8.5-10.1); CARBON DIOXIDE LEVEL 24 MMOL/L (20-31); CHLORIDE LEVEL 104 MMOL/L (98-107); CREATININE FOR GFR 1.07 MG/DL (0.70-1.30); GLOMERULAR FILTRATION RATE > 60.0 (>56); GLUCOSE, FASTING 100 MG/DL (60-100); SODIUM LEVEL 138 MMOL/L (136-145); TOTAL PROTEIN 6.5 G/DL (5.7-8.2)
[2024-08-24] MEDS: ALBUTEROL 90 MCG/ACT 8GM HFA INHALER INH PRN (11:49)
[2024-08-24 12:00] VITALS: BP 126/77; TEMP 97.5; O2SAT 97
[2024-08-24] MEDS: SODIUM CHLORIDE NASAL 0.65% SPRAY BTL (OCEAN) PRN (15:00)
[2024-08-24] MEDS: CETACAINE SPRAY 5GM TOP ONE (17:09)
[2024-08-24] MEDS: LIDOCAINE W/EPINEPHRINE 1% 20ML VIAL SC ONE (17:09)
[2024-08-24] MEDS: SILVER NITRATE APPLICATOR (1 = QTY 10) TOP ONE (17:09)
[2024-08-24] MEDS: AMPICILLIN SOD/SULBACTAM SOD 3 GM in DEXTROSE 5% (D5W) MINI-BAG PLU 100 ML IV SCH (17:45)
[2024-08-24] MEDS: MORPHINE 2 MG/ML 1ML VIAL IV ONE (18:24)
[2024-08-24] MEDS: DOXYCYCLINE HYCLATE 100MG TABLET PO SCH (21:08)
[2024-08-24] MEDS: valACYclovir HCL 500 MG TAB PO SCH (21:08)
[2024-08-25 03:49] VITALS: BP 128/69; TEMP 97.2; O2SAT 95
[2024-08-25 07:40] VITALS: BP 131/73; TEMP 97.5; O2SAT 97
[2024-08-25 12:00] VITALS: BP 184/98; TEMP 97.5; O2SAT 96
[2024-08-25] MEDS ORDERED: MUCI600T31 PO (12:52)
[2024-08-25] MEDS ORDERED: MAGICMW SS (12:52)
[2024-08-25] MEDS ORDERED: LIDO15SO9 PO (12:52)
[2024-08-25] MEDS ORDERED: AMOX875T2 PO (12:52)
[2024-08-25] MEDS ORDERED: VALA500T5 PO (12:52)
[2024-08-25] MEDS ORDERED: OXYC1TAB23 PO (13:08)
[2024-08-26 12:39] LABS: QuantiFERON-TB Gold Plus POSITIVE (NEGATIVE)
[2024-08-27 12:51] LABS: CYTOMEGALOVIRUS IgM ANTIBODY < 30.00 AU/mL (<30.00)
[2024-08-27 13:12] LABS: HSV 1 IGG TYPE SPECIFIC < 0.90 index (<0.90); HSV 2 IGG TYPE SPECIFIC < 0.90 index (<0.90)
== END 2024-08-25 15:23 | disposition home or self-care (01) ==
LOC: M ED 11:16 → EEVIPCON 11:17 → M ED INP 11:17 → M MSPAV 20:00
PROVIDERS: ADMIT Internal Medicine; ATTEND Internal Medicine Nephrology
DX: R13.10 Dysphagia, unspecified (principal); K11.1 Hypertrophy of salivary gland; J32.9 Chronic sinusitis, unspecified; J20.9 Acute bronchitis, unspecified; Z79.2 Long term (current) use of antibiotics; Z79.899 Other long term (current) drug therapy; K50.90 Crohn's disease, unspecified, without complications; L40.9 Psoriasis, unspecified; K21.9 Gastro-esophageal reflux disease without esophagitis; J45.909 Unspecified asthma, uncomplicated; E78.5 Hyperlipidemia, unspecified; I10 Essential (primary) hypertension; Z86.711 Personal history of pulmonary embolism; Z88.5 Allergy status to narcotic agent; Z91.018 Allergy to other foods; Z88.8 Allergy status to other drugs, medicaments and biological substances; B37.0 Candidal stomatitis; J39.2 Other diseases of pharynx
CPT/HCPCS: 36415; 42100; 43239; 70491; 71046; 80048; 80053; 80076; 84145; 85025; 85027; 85610; 85730; 86480; 86645; 86695; 86696; 87070; 87077; 87102; 87116; 87186; 87205; 87206; 87252; 87430; 87486; 87529; 87581; 87633; 87641; 87798; 88300; 88305; 94640; 96365; 96366; 96372; 96375; 96376; 99284; J0131; J0295; J1596; J1885; J2470; J3010; Q9967

== ENCOUNTER → 2024-08-30 | Outpatient (CLI) | payer BC ==
[~2024-08-30] MED LIST changes: +FLON1SPR NARES; +LIDO15SO9 PO; +MUCI600T31 PO; +OXYC1TAB23 PO; +VALA500T5 PO
[2024-08-30 16:59] LABS: BASO % 0.5 % (0.0-1.0); EOS # 0.1 10^3/uL (0.0-0.5); EOS % 1.6 % (0.0-3.0); HEMATOCRIT 41.9 % (42.0-52.0); HEMOGLOBIN 13.7 g/dl (13.5-17.5); LYMPH # 1.4 10^3/uL (1.5-5.0); MEAN CORPUSCULAR HEMOGLOBIN 29.2 pg (27.0-33.0); MEAN CORPUSCULAR HGB CONC 32.7 g/dl (32.0-36.5); MEAN CORPUSCULAR VOLUME 89.3 fl (80.0-96.0); MONO # 0.7 10^3/uL (0.0-0.8); MONO % 12.2 % (2.0-8.0); NEUTROPHILS # 3.4 10^3/uL (1.5-8.5); NEUTROPHILS % 60.3 % (36.0-66.0); PLATELET COUNT, AUTOMATED 253 10^3/uL (150-450); RED BLOOD COUNT 4.69 10^6/uL (4.30-6.10); WHITE BLOOD COUNT 5.7 10^3/uL (4.0-10.0)
[2024-08-30 17:11] LABS: APPEARANCE, URINE CLEAR (CLEAR); BACTERIA, URINE AUTO NEGATIVE (NEGATIVE); BILIRUBIN, URINE AUTO NEGATIVE (NEGATIVE); BLOOD, URINE BLOOD 2+ (NEGATIVE); COLOR, URINE YELLOW (YELLOW); GLUCOSE, URINE (UA) AUTO NEGATIVE (NEGATIVE); KETONE, URINE AUTO NEGATIVE (NEGATIVE); LEUKOCYTE ESTERASE, URINE AUTO NEGATIVE (NEGATIVE); NITRITE, URINE AUTO NEGATIVE (NEGATIVE); PROTEIN, URINE AUTO NEGATIVE (NEGATIVE); RBC, URINE AUTO 2 /HPF (0-3); SPECIFIC GRAVITY URINE AUTO 1.013 (1.002-1.035); SQUAMOUS EPITHELIAL CELL UR AU 0 /HPF (0-6); UROBILINOGEN, URINE AUTO 0.2 mg/dL (0.0-2.0); WBC, URINE AUTO 2 /HPF (0-3)
[2024-08-30 17:28] LABS: CALCIUM LEVEL 8.6 MG/DL (8.5-10.1); CREATININE FOR GFR 1.01 MG/DL (0.70-1.30); GLOMERULAR FILTRATION RATE 87.8 (>56); POTASSIUM SERUM 4.3 MMOL/L (3.5-5.1)
== END ==
LOC: M PLALAB 12:38
PROVIDERS: ATTEND Internal Medicine Infectious Disease
DX: R34 Anuria and oliguria (principal)

== ENCOUNTER → 2024-09-02 | Outpatient (CLI) | payer BC ==
[2024-09-02 13:56] LABS: BASO % 0.6 % (0.0-1.0); EOS # 0.1 10^3/uL (0.0-0.5); EOS % 1.7 % (0.0-3.0); LYMPH % 29.9 % (24.0-44.0); MEAN CORPUSCULAR HEMOGLOBIN 28.7 pg (27.0-33.0); MEAN CORPUSCULAR HGB CONC 32.5 g/dl (32.0-36.5); MEAN CORPUSCULAR VOLUME 88.3 fl (80.0-96.0); MONO # 0.8 10^3/uL (0.0-0.8); MONO % 11.6 % (2.0-8.0); NEUTROPHILS # 3.6 10^3/uL (1.5-8.5); NEUTROPHILS % 55.7 % (36.0-66.0); PLATELET COUNT, AUTOMATED 293 10^3/uL (150-450); RED BLOOD COUNT 4.53 10^6/uL (4.30-6.10); WHITE BLOOD COUNT 6.5 10^3/uL (4.0-10.0)
[2024-09-02 14:12] LABS: ERYTHROCYTE SEDIMENTATION RATE 111 mm/hr (0-20)
== END ==
LOC: M PLALAB 10:56
PROVIDERS: ATTEND Internal Medicine Infectious Disease
DX: J38.7 Other diseases of larynx (principal)

== ENCOUNTER → 2024-09-15 | Outpatient (REF) | payer BC | LOC: M LAB REF 18:08 | PROVIDERS: ATTEND Otolaryngology | DX: R13.10 Dysphagia, unspecified (principal); K12.30 Oral mucositis (ulcerative), unspecified | CPT/HCPCS: 42100; 88300; 88305; G0463 ==

== ENCOUNTER 2024-09-18 11:23 | Emergency (ER) | payer BC ==
[~2024-09-18] VITALS: Ht 190.5 cm; Wt 127.3 kg
[2024-09-18 12:34] LABS: BASO # 0.1 10^3/uL (0.0-0.2); BASO % 0.6 % (0.0-1.0); EOS # 0.1 10^3/uL (0.0-0.5); EOS % 0.5 % (0.0-3.0); HEMATOCRIT 39.2 % (42.0-52.0); HEMOGLOBIN 12.6 g/dl (13.5-17.5); LYMPH # 1.4 10^3/uL (1.5-5.0); MEAN CORPUSCULAR HEMOGLOBIN 29.3 pg (27.0-33.0); MEAN CORPUSCULAR HGB CONC 32.1 g/dl (32.0-36.5); MEAN CORPUSCULAR VOLUME 91.2 fl (80.0-96.0); MONO # 0.9 10^3/uL (0.0-0.8); MONO % 7.6 % (2.0-8.0); NEUTROPHILS # 9.3 10^3/uL (1.5-8.5); PLATELET COUNT, AUTOMATED 257 10^3/uL (150-450); WHITE BLOOD COUNT 11.8 10^3/uL (4.0-10.0)
[2024-09-18 12:56] LABS: VENOUS BASE EXCESS 1.8 (-2.0-2.0); VENOUS HCO3 26.6 MMOL/L (23.0-27.0); VENOUS O2 SATURATION 90.3 % (60.0-80.0); VENOUS PARTIAL PRESSURE CO2 42.8 mmHg (38.0-50.0); VENOUS PARTIAL PRESSURE O2 57.9 mmHg (30.0-50.0); VENOUS PH 7.412 UNITS (7.330-7.430); VENOUS STANDARD HCO3 25.9 MMOL/L
[2024-09-18 13:11] LABS: ALBUMIN 3.5 G/DL (3.2-5.2); BILIRUBIN,DIRECT 0.2 MG/DL (<0.4); BILIRUBIN,TOTAL 0.5 MG/DL (0.3-1.2); CALCIUM LEVEL 8.4 MG/DL (8.5-10.1); CREATININE FOR GFR 1.18 MG/DL (0.70-1.30); GLOMERULAR FILTRATION RATE 72.9 (>56); POTASSIUM SERUM 4.4 MMOL/L (3.5-5.1); THYROID STIMULATING HORMONE 1.613 uIU/ML (0.55-4.78); TOTAL PROTEIN 7.3 G/DL (5.7-8.2)
[2024-09-18 13:20] LABS: PROCALCITONIN 0.09 ng/ml
[2024-09-18 13:29] LABS: KETONE, URINE AUTO RFX NEGATIVE (NEGATIVE); LEUKOCYTE ESTERASE UR AUTO RFX NEGATIVE (NEGATIVE); NITRITE, URINE AUTO RFX NEGATIVE (NEGATIVE); RBC, URINE AUTO RFX 2 /HPF (0-3); SQUAM EPITHELIAL CELL UR AURFX 0 /HPF (0-6); WBC, URINE AUTO RFX 4 /HPF (0-3)
[2024-09-18] MEDS ORDERED: ISOVUE-370 76% 100ML VIAL As Ordered ONE (13:44)
[2024-09-18 15:00] VITALS: O2SAT 97
[2024-09-18 15:35] VITALS: BP 130/73; TEMP 97.3
== END 2024-09-18 15:37 | disposition home or self-care (01) ==
LOC: M ED 11:23
DX: B34.8 Other viral infections of unspecified site (principal); J45.909 Unspecified asthma, uncomplicated; K21.9 Gastro-esophageal reflux disease without esophagitis; Z88.5 Allergy status to narcotic agent; Z88.8 Allergy status to other drugs, medicaments and biological substances; Z91.018 Allergy to other foods; Z79.52 Long term (current) use of systemic steroids; Z79.2 Long term (current) use of antibiotics; Z79.899 Other long term (current) drug therapy
CPT/HCPCS: 36415; 71045; 71275; 80048; 80076; 81001; 82803; 83605; 83880; 84145; 84436; 84443; 85025; 87040; 87486; 87581; 87633; 87798; 93005; 93041; 93970; 94760; 99285; Q9967

== ENCOUNTER 2024-09-22 09:19 | Emergency (ER) | payer BC ==
[~2024-09-22] VITALS: Ht 190.5 cm; Wt 128.9 kg
[2024-09-22 12:16] VITALS: BP 149/77; TEMP 97.5; O2SAT 99
[2024-09-22] MEDS ORDERED: PRED10TA2 PO (12:28)
== END 2024-09-22 12:40 | disposition home or self-care (01) ==
LOC: M ED 09:19
DX: M79.674 Pain in right toe(s) (principal); W54.1XXA Struck by dog, initial encounter; K58.9 Irritable bowel syndrome, unspecified; E78.5 Hyperlipidemia, unspecified; J45.909 Unspecified asthma, uncomplicated; Z88.5 Allergy status to narcotic agent; Z88.8 Allergy status to other drugs, medicaments and biological substances; Z91.018 Allergy to other foods; Y92.009 Unspecified place in unspecified non-institutional (private) residence as the place of occurrence of the external cause; Y93.89 Activity, other specified; Y99.9 Unspecified external cause status; Z79.52 Long term (current) use of systemic steroids; Z79.2 Long term (current) use of antibiotics; Z79.899 Other long term (current) drug therapy

== ENCOUNTER 2024-10-04 07:48 | Outpatient (CLI) | payer BC ==
[~2024-10-04] VITALS: Ht 190.5 cm; Wt 132.0 kg
[2024-10-04 07:45] VITALS: BP 141/69; O2SAT 96
[~2024-10-04 07:48] MED LIST changes: +INFLIXIMAB BIOSIMILAR IV ONE; +NS (Normal Saline) 0.9% 1,000 ML IV SCH; +NS IV ONE
[2024-10-04] MEDS: dexameTHASONE 20 MG IV PRIOR TO INFUSION IV ONE (08:08)
[2024-10-04] MEDS: ACETAMINOPHEN 325 MG TAB PO ONE (08:12)
[2024-10-04] MEDS: NS IV ONE (08:49)
[2024-10-04] MEDS: INFLIXIMAB BIOSIMILAR IV ONE (08:49)
[2024-10-04 09:30] VITALS: BP 138/74; O2SAT 97
[2024-10-04 10:05] VITALS: BP 134/74; O2SAT 96
[2024-10-04 10:45] VITALS: BP 126/73; O2SAT 96
[2024-10-04 12:10] VITALS: BP 126/76; O2SAT 96
== END 2024-10-04 12:10 | disposition home or self-care (01) ==
LOC: M INFU 07:48
PROVIDERS: ATTEND Internal Medicine Gastroenterology
DX: K50.90 Crohn's disease, unspecified, without complications (principal); Z88.5 Allergy status to narcotic agent; Z88.8 Allergy status to other drugs, medicaments and biological substances; Z91.018 Allergy to other foods
CPT/HCPCS: 96375; 96413; 96415; J1100; Q5103

== ENCOUNTER → 2024-10-07 | Outpatient (CLI) | payer BC ==
[~2024-10-07] MED LIST changes: -INFLIXIMAB BIOSIMILAR IV ONE; -NS (Normal Saline) 0.9% 1,000 ML IV SCH; -NS IV ONE
== END ==
LOC: M PLAIMG 11:13
PROVIDERS: ATTEND Internal Medicine Infectious Disease
DX: R06.09 Other forms of dyspnea (principal)

== ENCOUNTER → 2024-11-18 | Outpatient (CLI) | payer BC ==
[~2024-11-18] MED LIST changes: +ISON1TAB5 PO; +ISOVUE-370 76% 100 ML VIAL ONE; +RIFA150T PO
== END ==
LOC: M PLAIMG 08:30
PROVIDERS: ATTEND Otolaryngology
DX: K11.20 Sialoadenitis, unspecified (principal)
CPT/HCPCS: 36415; 70491; 80076; Q9967

== ENCOUNTER → 2024-11-18 | Outpatient (CLI) | payer BC ==
[~2024-11-18] MED LIST changes: -ISOVUE-370 76% 100 ML VIAL ONE
[2024-11-18 09:57] LABS: ALT/SGPT 20.0 U/L (7.0-40); AST/SGOT 17.0 U/L (<34)
== END ==
LOC: M PLALAB 08:33
PROVIDERS: ATTEND Internal Medicine Gastroenterology
DX: K50.80 Crohn's disease of both small and large intestine without complications (principal)

== ENCOUNTER → 2024-12-02 | Outpatient (CLI) | payer BC | LOC: M RAD 11:23 | PROVIDERS: ATTEND Otolaryngology | DX: R22.1 Localized swelling, mass and lump, neck (principal) ==

== ENCOUNTER → 2025-01-04 | Outpatient (CLI) | payer BC ==
[~2025-01-04] MED LIST changes: +METHACHOLINE KIT (6 VIAL.NEB PREMIX) INH ONE
== END ==
LOC: M CARPUL 08:10
PROVIDERS: ATTEND Internal Medicine Pulmonary Disease
DX: R06.02 Shortness of breath (principal)
CPT/HCPCS: 94070; 95070; J7674

== ENCOUNTER 2025-01-10 09:59 | Outpatient (CLI) | payer BC ==
[~2025-01-10] VITALS: Ht 182.9 cm; Wt 136.4 kg
[~2025-01-10 09:59] MED LIST changes: +ACETAMINOPHEN 650MG PO PRIOR TO INFUSION PO ONE; -METHACHOLINE KIT (6 VIAL.NEB PREMIX) INH ONE; +NS (Normal Saline) 0.9% 1,000 ML IV SCH
[2025-01-10 10:10] VITALS: BP 177/86; O2SAT 100
[2025-01-10] MEDS: dexameTHASONE 20 MG IV PRIOR TO INFUSION IV ONE (10:24)
[2025-01-10] MEDS: NS IV ONE (10:59)
[2025-01-10] MEDS: INFLIXIMAB BIOSIMILAR IV ONE (10:59)
[2025-01-10 11:30] VITALS: BP 139/81; O2SAT 99
[2025-01-10 12:00] VITALS: BP 132/74; O2SAT 98
[2025-01-10 12:30] VITALS: BP 140/79; O2SAT 98
[2025-01-10 13:20] VITALS: BP 158/90; O2SAT 98
== END 2025-01-10 13:25 | disposition home or self-care (01) ==
LOC: M INFU 09:59
PROVIDERS: ATTEND Internal Medicine Gastroenterology
DX: K50.90 Crohn's disease, unspecified, without complications (principal); Z91.041 Radiographic dye allergy status; Z88.5 Allergy status to narcotic agent; Z88.8 Allergy status to other drugs, medicaments and biological substances
CPT/HCPCS: 96413; 96415; J1100; Q5103

== ENCOUNTER → 2025-01-29 | Outpatient (CLI) | payer BC ==
[~2025-01-29] MED LIST changes: -ACETAMINOPHEN 650MG PO PRIOR TO INFUSION PO ONE; -DIPH50CA PO; +DIPH50CA31 PO; -NS (Normal Saline) 0.9% 1,000 ML IV SCH
[2025-01-29 13:17] LABS: BASO # 0.1 10^3/uL (0.0-0.2); BASO % 0.5 % (0.0-1.0); EOS # 0.0 10^3/uL (0.0-0.5); EOS % 0.2 % (0.0-3.0); LYMPH # 1.6 10^3/uL (1.5-5.0); LYMPH % 16.1 % (24.0-44.0); MONO # 0.2 10^3/uL (0.0-0.8); MONO % 2.2 % (2.0-8.0); NEUTROPHILS # 8.0 10^3/uL (1.5-8.5); NEUTROPHILS % 80.5 % (36.0-66.0); PLATELET COUNT, AUTOMATED 214 10^3/uL (150-450)
[2025-01-29 13:22] LABS: ERYTHROCYTE SEDIMENTATION RATE 28 mm/hr (0-20)
[2025-01-29 13:38] LABS: C REACTIVE PROTEIN QUANTITATIV < 0.50 MG/DL (<1.0)
[2025-01-29 13:43] LABS: ALT/SGPT 28 U/L (7.0-40); AST/SGOT 21 U/L (<34); CALCIUM LEVEL 9.8 MG/DL (8.5-10.1); CARBON DIOXIDE LEVEL 24 MMOL/L (20-31); CHLORIDE LEVEL 101 MMOL/L (98-107); CREATININE FOR GFR 1.05 MG/DL (0.70-1.30); GLOMERULAR FILTRATION RATE 83.3 (>56); POTASSIUM SERUM 4.2 MMOL/L (3.5-5.1); SODIUM LEVEL 137 MMOL/L (136-145)
== END ==
LOC: M LAB 12:38
PROVIDERS: ATTEND Internal Medicine Gastroenterology
DX: K50.018 Crohn's disease of small intestine with other complication (principal)

== ENCOUNTER → 2025-01-31 | Outpatient (REF) | payer BC | LOC: M LAB REF 10:09 | PROVIDERS: ATTEND Internal Medicine Gastroenterology | DX: K50.018 Crohn's disease of small intestine with other complication (principal) ==

== ENCOUNTER 2025-02-24 11:14 | Day surgery (SDC) | payer BC ==
[~2025-02-24] VITALS: Ht 190.5 cm; Wt 137.3 kg
[~2025-02-24 11:14] MED LIST changes: +ACET-1515 PO; +BUDE0.5S6 INH; +PROBCAP14 PO
[2025-02-24] MEDS ORDERED: LIDOCAINE 2% 100 MG/5 ML SDV (FOR ANES.) As Ordered ONE (12:16)
[2025-02-24 12:59] VITALS: TEMP 97.9
[2025-02-24 13:23] VITALS: BP 143/71; O2SAT 95
== END 2025-02-24 13:24 | disposition home or self-care (01) ==
LOC: M OPP 11:14
PROVIDERS: ATTEND Internal Medicine Gastroenterology
DX: D12.0 Benign neoplasm of cecum (principal); D12.2 Benign neoplasm of ascending colon; K64.8 Other hemorrhoids; K50.80 Crohn's disease of both small and large intestine without complications; Z88.8 Allergy status to other drugs, medicaments and biological substances; Z91.041 Radiographic dye allergy status; Z91.018 Allergy to other foods; Z79.52 Long term (current) use of systemic steroids; Z79.899 Other long term (current) drug therapy; J45.909 Unspecified asthma, uncomplicated; Z87.891 Personal history of nicotine dependence
CPT/HCPCS: 43239; 45380; 45385; 88305; J3010

== ENCOUNTER 2025-03-07 09:11 | Outpatient (CLI) | payer BC ==
[~2025-03-07] VITALS: Ht 190.5 cm; Wt 136.4 kg
[~2025-03-07 09:11] MED LIST changes: -BUDE0.5S6 INH; +BUDE0.5S6 SSP
[2025-03-07 09:15] VITALS: BP 142/81; O2SAT 98
[2025-03-07] MEDS ORDERED: INFLIXIMAB BIOSIMILAR IV ONE (09:30)
[2025-03-07] MEDS ORDERED: NS IV ONE (09:30)
[2025-03-07] MEDS ORDERED: NS (Normal Saline) 0.9% 1,000 ML IV SCH (09:30)
[2025-03-07] MEDS: dexameTHASONE 20 MG IV PRIOR TO INFUSION IV ONE (09:53)
[2025-03-07] MEDS: ACETAMINOPHEN 650MG PO PRIOR TO INFUSION PO ONE (09:56)
[2025-03-07] MEDS: NS IV ONE (10:25)
[2025-03-07] MEDS: INFLIXIMAB BIOSIMILAR IV ONE (10:25)
[2025-03-07 11:00] VITALS: BP 132/73; O2SAT 97
[2025-03-07 11:30] VITALS: BP 137/81; O2SAT 98
[2025-03-07 12:00] VITALS: BP 143/73; O2SAT 97
[2025-03-07 13:00] VITALS: BP 140/79; O2SAT 97
[2025-03-08] MEDS ORDERED: ALBU10.7 INH (12:46)
[2025-03-08] MEDS ORDERED: SPIR-10 PO (12:46)
[2025-03-08] MEDS ORDERED: FERR325T3 PO (12:47)
[2025-03-10] MEDS ORDERED: ELIQ5TAB PO (10:18)
== END 2025-03-07 13:00 | disposition home or self-care (01) ==
LOC: M INFU 09:11
PROVIDERS: ATTEND Internal Medicine Gastroenterology
DX: K50.90 Crohn's disease, unspecified, without complications (principal); Z88.5 Allergy status to narcotic agent; Z88.8 Allergy status to other drugs, medicaments and biological substances; Z91.041 Radiographic dye allergy status; Z91.018 Allergy to other foods
CPT/HCPCS: 96375; 96413; 96415; J1100; Q5103

== ENCOUNTER 2025-03-12 20:05 | Emergency (ER) | payer BC ==
[~2025-03-12] VITALS: Ht 190.5 cm; Wt 139.3 kg
[~2025-03-12 20:05] MED LIST changes: +ALBU10.7 INH; +FERR325T3 PO; +OXYC-517 PO
[2025-03-12 21:05] LABS: BASO # 0.1 10^3/uL (0.0-0.2); BASO % 0.6 % (0.0-1.0); EOS # 0.2 10^3/uL (0.0-0.5); EOS % 1.2 % (0.0-3.0); LYMPH # 4.3 10^3/uL (1.5-5.0); LYMPH % 34.6 % (24.0-44.0); MONO # 0.9 10^3/uL (0.0-0.8); MONO % 7.2 % (2.0-8.0); NEUTROPHILS # 6.4 10^3/uL (1.5-8.5); NEUTROPHILS % 51.4 % (36.0-66.0); PLATELET COUNT, AUTOMATED 188 10^3/uL (150-450)
[2025-03-12] MEDS: FAMOTIDINE 20 MG/2 ML VIAL IVP ONE (21:36)
[2025-03-12] MEDS: diphenhydrAMINE 50 MG/ML VIAL IV STA (21:37)
[2025-03-12 21:38] LABS: INR 1.04
[2025-03-12] MEDS ORDERED: ISOVUE-370 76% 100 ML VIAL As Ordered ONE (21:40)
[2025-03-12 21:51] LABS: CALCIUM LEVEL 8.6 MG/DL (8.5-10.1); CARBON DIOXIDE LEVEL 20.0 MMOL/L (20-31); CHLORIDE LEVEL 104.0 MMOL/L (98-107); CREATININE FOR GFR 1.26 MG/DL (0.70-1.30); GLOMERULAR FILTRATION RATE 66.9 (>56); POTASSIUM SERUM 5.2 MMOL/L (3.5-5.1); SODIUM LEVEL 139.0 MMOL/L (136-145)
[2025-03-13] MEDS: ACETAMINOPHEN *IV* 1,000 MG in IV 1 EA IV ONE (03:37)
[2025-03-13] MEDS: MORPHINE 2 MG/ML 1 ML VIAL IV ONE (03:38)
[2025-03-13 07:40] VITALS: BP 145/59; TEMP 96.8; O2SAT 94
== END 2025-03-13 07:40 | disposition home or self-care (01) ==
LOC: M ED 20:05
DX: S30.22XA Contusion of scrotum and testes, initial encounter (principal); J98.11 Atelectasis; K59.00 Constipation, unspecified; J45.909 Unspecified asthma, uncomplicated; K21.9 Gastro-esophageal reflux disease without esophagitis; Z86.711 Personal history of pulmonary embolism; Z79.01 Long term (current) use of anticoagulants; Z88.5 Allergy status to narcotic agent; Z88.8 Allergy status to other drugs, medicaments and biological substances; Z91.041 Radiographic dye allergy status; Z79.52 Long term (current) use of systemic steroids; Z79.1 Long term (current) use of non-steroidal anti-inflammatories (NSAID); Z79.899 Other long term (current) drug therapy; Z96.643 Presence of artificial hip joint, bilateral; Y92.9 Unspecified place or not applicable; Y93.89 Activity, other specified; Y99.9 Unspecified external cause status
CPT/HCPCS: 74177; 80047; 80048; 85025; 85610; 85730; 86850; 86900; 86901; 93926; 99285; J0131; J1200; J1308; J2919; Q9967

== ENCOUNTER → 2025-03-22 | Outpatient (CLI) | payer BC ==
[~2025-03-22] MED LIST changes: +ACET-683 PO; +ALBU10.7 PO; +CARV6.25 PO
== END ==
LOC: M EKG 08:32
PROVIDERS: ATTEND Internal Medicine Cardiovascular Disease
DX: R00.2 Palpitations (principal); I49.40 Unspecified premature depolarization

== ENCOUNTER 2025-03-28 10:42 | Emergency (ER) | payer BC ==
[~2025-03-28] VITALS: Ht 190.5 cm; Wt 142.8 kg
[~2025-03-28 10:42] MED LIST changes: -ACET-683 PO; -ALBU10.7 PO
[2025-03-28 12:01] LABS: BASO # 0.1 10^3/uL (0.0-0.2); BASO % 1.0 % (0.0-1.0); EOS # 0.2 10^3/uL (0.0-0.5); EOS % 2.9 % (0.0-3.0); LYMPH # 3.0 10^3/uL (1.5-5.0); LYMPH % 38.9 % (24.0-44.0); MONO # 0.7 10^3/uL (0.0-0.8); MONO % 9.3 % (2.0-8.0); NEUTROPHILS # 3.7 10^3/uL (1.5-8.5); NEUTROPHILS % 47.3 % (36.0-66.0); PLATELET COUNT, AUTOMATED 201 10^3/uL (150-450)
[2025-03-28 12:21] LABS: ALT/SGPT 30 U/L (7.0-40); AST/SGOT 22 U/L (<34); CALCIUM LEVEL 9.0 MG/DL (8.5-10.1); CARBON DIOXIDE LEVEL 25 MMOL/L (20-31); CHLORIDE LEVEL 104 MMOL/L (98-107); CREATININE FOR GFR 1.17 MG/DL (0.70-1.30); GLOMERULAR FILTRATION RATE 73.2 (>56); POTASSIUM SERUM 4.4 MMOL/L (3.5-5.1); SODIUM LEVEL 141 MMOL/L (136-145)
[2025-03-28] MEDS ORDERED: ALBU10.7 PO (13:26)
[2025-03-28] MEDS ORDERED: ACET-683 PO (13:26)
[2025-03-28] MEDS ORDERED: HOME MED LIST COMPLETE! XX SCH (13:30)
[2025-03-28] MEDS ORDERED: ISOVUE-370 76% 100 ML VIAL As Ordered ONE (15:15)
[2025-03-28 15:42] LABS: CK-MB VALUE MASS < 1.0 NG/ML (<3.6)
[2025-03-28 15:44] LABS: CPK CREATINE PHOSPHOKINASE 80 U/L (46-171)
[2025-03-28 15:52] LABS: KETONE, URINE AUTO RFX NEGATIVE (NEGATIVE); LEUKOCYTE ESTERASE UR AUTO RFX NEGATIVE (NEGATIVE); NITRITE, URINE AUTO RFX NEGATIVE (NEGATIVE); RBC, URINE AUTO RFX 0 /HPF (0-3); SQUAM EPITHELIAL CELL UR AURFX 0 /HPF (0-6); WBC, URINE AUTO RFX 0 /HPF (0-3)
[2025-03-28] MEDS: ONDANSETRON 4MG/2ML VIAL IV ONE (15:53)
[2025-03-28 15:54] VITALS: BP 141/79
[2025-03-28] MEDS: FUROSEMIDE 40 MG/4 ML VIAL IV ONE (15:54)
[2025-03-28] MEDS: diphenhydrAMINE 50 MG/ML VIAL IV ONE (15:54)
[2025-03-28 16:09] LABS: CK-MB VALUE MASS < 1.0 NG/ML (<3.6)
[2025-03-28 16:13] LABS: CPK CREATINE PHOSPHOKINASE 59 U/L (46-171)
[2025-03-28 17:52] LABS: CK-MB VALUE MASS < 1.0 NG/ML (<3.6)
[2025-03-28 17:54] LABS: CPK CREATINE PHOSPHOKINASE 71 U/L (46-171)
[2025-03-28] MEDS ORDERED: ZITHTAB PO (18:14)
[2025-03-28] MEDS ORDERED: AMOX875T2 PO (18:14)
[2025-03-28 18:16] VITALS: BP 148/73; TEMP 97.9; O2SAT 98
[2025-04-18] MEDS ORDERED: ACET-683 PO (14:05)
== END 2025-03-28 18:36 | disposition home or self-care (01) ==
LOC: M ED 10:42
DX: R06.02 Shortness of breath (principal); J98.11 Atelectasis; R91.8 Other nonspecific abnormal finding of lung field; J45.909 Unspecified asthma, uncomplicated; K57.30 Diverticulosis of large intestine without perforation or abscess without bleeding; K58.9 Irritable bowel syndrome, unspecified; M54.50 Low back pain, unspecified; Z86.711 Personal history of pulmonary embolism; Z87.891 Personal history of nicotine dependence; Z91.041 Radiographic dye allergy status; Z91.018 Allergy to other foods; Z88.8 Allergy status to other drugs, medicaments and biological substances; Z88.5 Allergy status to narcotic agent; Z96.643 Presence of artificial hip joint, bilateral; Z79.52 Long term (current) use of systemic steroids; Z79.899 Other long term (current) drug therapy; Z79.01 Long term (current) use of anticoagulants; Z79.2 Long term (current) use of antibiotics
CPT/HCPCS: 71275; 74177; 80048; 80076; 81001; 82550; 82553; 83880; 84484; 85025; 87486; 87581; 87633; 87798; 93005; 93041; 93970; 96374; 96375; 99285; G0463; J1200; J1938; J2405; J2919; Q9967

== ENCOUNTER → 2025-03-28 | Outpatient (POV) | payer BC ==
[2025-03-28 10:17] VITALS: BP 154/86; O2SAT 96
== END ==
LOC: M IRPOV 09:57
PROVIDERS: ATTEND Registered Nurse School
DX: Z48.812 Encounter for surgical aftercare following surgery on the circulatory system (principal); R60.0 Localized edema; R63.5 Abnormal weight gain; I51.7 Cardiomegaly; Z88.5 Allergy status to narcotic agent; Z88.8 Allergy status to other drugs, medicaments and biological substances; Z91.041 Radiographic dye allergy status; Z91.018 Allergy to other foods; R06.02 Shortness of breath; J98.11 Atelectasis; R91.8 Other nonspecific abnormal finding of lung field; J45.909 Unspecified asthma, uncomplicated; K57.30 Diverticulosis of large intestine without perforation or abscess without bleeding; K58.9 Irritable bowel syndrome, unspecified; M54.50 Low back pain, unspecified; Z86.711 Personal history of pulmonary embolism; Z87.891 Personal history of nicotine dependence; Z96.643 Presence of artificial hip joint, bilateral; Z79.52 Long term (current) use of systemic steroids; Z79.899 Other long term (current) drug therapy; Z79.01 Long term (current) use of anticoagulants; Z79.2 Long term (current) use of antibiotics

== ENCOUNTER 2025-04-07 04:09 | Emergency (ER) | payer BC ==
[~2025-04-07] VITALS: Ht 190.5 cm; Wt 139.6 kg
[~2025-04-07 04:09] MED LIST changes: +ACET-683 PO; +ALBU10.7 PO
[2025-04-07 04:59] LABS: BASO # 0.1 10^3/uL (0.0-0.2); BASO % 0.8 % (0.0-1.0); EOS # 0.2 10^3/uL (0.0-0.5); EOS % 2.3 % (0.0-3.0); LYMPH # 3.1 10^3/uL (1.5-5.0); LYMPH % 40.1 % (24.0-44.0); MONO # 1.0 10^3/uL (0.0-0.8); MONO % 13.4 % (2.0-8.0); NEUTROPHILS # 3.3 10^3/uL (1.5-8.5); NEUTROPHILS % 42.4 % (36.0-66.0); PLATELET COUNT, AUTOMATED 220 10^3/uL (150-450)
[2025-04-07 05:26] LABS: ALT/SGPT 27 U/L (7.0-40); AST/SGOT 19 U/L (<34); CALCIUM LEVEL 8.5 MG/DL (8.5-10.1); CARBON DIOXIDE LEVEL 24 MMOL/L (20-31); CHLORIDE LEVEL 103 MMOL/L (98-107); CK-MB VALUE MASS < 1.0 NG/ML (<3.6); CREATININE FOR GFR 1.06 MG/DL (0.70-1.30); GLOMERULAR FILTRATION RATE 82.4 (>56); POTASSIUM SERUM 3.9 MMOL/L (3.5-5.1); SODIUM LEVEL 140 MMOL/L (136-145)
[2025-04-07 05:28] LABS: CPK CREATINE PHOSPHOKINASE 63 U/L (46-171)
[2025-04-07 05:35] LABS: INR 0.88
[2025-04-07 07:30] LABS: CK-MB VALUE MASS < 1.0 NG/ML (<3.6)
[2025-04-07 07:31] LABS: CPK CREATINE PHOSPHOKINASE 57 U/L (46-171)
[2025-04-07 08:17] LABS: MAGNESIUM LEVEL 2.0 MG/DL (1.8-2.4)
[2025-04-07 08:21] LABS: FREE T4 1.44 NG/DL (0.89-1.76)
[2025-04-07 10:46] VITALS: BP 140/66; TEMP 97.3; O2SAT 99
== END 2025-04-07 10:59 | disposition home or self-care (01) ==
LOC: M ED 04:09
DX: R00.2 Palpitations (principal); I49.3 Ventricular premature depolarization; I10 Essential (primary) hypertension; Z86.711 Personal history of pulmonary embolism; Z88.5 Allergy status to narcotic agent; Z88.8 Allergy status to other drugs, medicaments and biological substances; Z91.041 Radiographic dye allergy status; Z91.018 Allergy to other foods; Z79.52 Long term (current) use of systemic steroids; Z79.01 Long term (current) use of anticoagulants; Z79.899 Other long term (current) drug therapy

== ENCOUNTER → 2025-04-13 | Outpatient (POV) | payer BC ==
[~2025-04-13] MED LIST changes: +MEDR4PAK PO; +METH-1165 PO; +TRAM50TA2 PO
== END ==
LOC: M IRPOV 09:30
PROVIDERS: ATTEND Radiology Diagnostic Radiology
DX: Z09 Encounter for follow-up examination after completed treatment for conditions other than malignant neoplasm (principal); I51.7 Cardiomegaly; Z86.711 Personal history of pulmonary embolism; Z80.7 Family history of other malignant neoplasms of lymphoid, hematopoietic and related tissues; Z82.49 Family history of ischemic heart disease and other diseases of the circulatory system; Z83.6 Family history of other diseases of the respiratory system; Z87.891 Personal history of nicotine dependence; Z79.01 Long term (current) use of anticoagulants; Z79.51 Long term (current) use of inhaled steroids; Z79.899 Other long term (current) drug therapy; Z88.5 Allergy status to narcotic agent; Z88.8 Allergy status to other drugs, medicaments and biological substances

== ENCOUNTER → 2025-04-18 | Outpatient (CLI) | payer BC ==
[~2025-04-18] MED LIST changes: +E-Z-GAS II EFFERVESCENT PACKET (SODIUM BICARB./CITRIC ACID/SIMETHICONE) As Ordered ONE; +E-Z-HD 98% w/w 340 GM SUSP BTL As Ordered ONE; +E-Z-PAQUE 96% w/w SUSP 176 GM BTL As Ordered ONE; -MEDR4PAK PO; -METH-1165 PO; -TRAM50TA2 PO
== END ==
LOC: M RAD 09:10
PROVIDERS: ATTEND Otolaryngology
DX: R13.10 Dysphagia, unspecified (principal)

== ENCOUNTER → 2025-04-27 | Outpatient (CLI) | payer BC ==
[~2025-04-27] MED LIST changes: -E-Z-GAS II EFFERVESCENT PACKET (SODIUM BICARB./CITRIC ACID/SIMETHICONE) As Ordered ONE; -E-Z-HD 98% w/w 340 GM SUSP BTL As Ordered ONE; -E-Z-PAQUE 96% w/w SUSP 176 GM BTL As Ordered ONE; +MEDR4PAK PO; +METH-1165 PO; +TRAM50TA2 PO
[2025-04-27 13:50] LABS: IRON (FE) 73 UG/DL (65-175); PERCENT SATURATION 18.8 % (19.7-50.0)
[2025-04-27 14:00] LABS: HEPATITIS C VIRUS ABY INDEX < 0.02 INDEX (<0.8)
[2025-04-29 12:04] LABS: ALPHA 1 ANTITRYPSIN 82 mg/dL (83-199); CERULOPLASMIN 26.0 mg/dL (14-30)
== END ==
LOC: M LAB 11:55
PROVIDERS: ATTEND Internal Medicine Gastroenterology
DX: K75.81 Nonalcoholic steatohepatitis (NASH) (principal)

== ENCOUNTER 2025-04-29 08:27 | Emergency (ER) | payer BC ==
[~2025-04-29] VITALS: Ht 190.5 cm; Wt 144.0 kg
[~2025-04-29 08:27] MED LIST changes: -MEDR4PAK PO; -METH-1165 PO; -TRAM50TA2 PO
[2025-04-29 10:42] VITALS: TEMP 97.6
[2025-04-29 11:05] VITALS: BP 132/87; O2SAT 97
[2025-04-29] MEDS ORDERED: METH-1165 PO (11:06)
[2025-04-29] MEDS ORDERED: MEDR4PAK PO (11:06)
[2025-04-29] MEDS ORDERED: TRAM50TA2 PO (11:06)
== END 2025-04-29 11:14 | disposition home or self-care (01) ==
LOC: M ED 08:27
DX: S46.011A Strain of muscle(s) and tendon(s) of the rotator cuff of right shoulder, initial encounter (principal); S29.012A Strain of muscle and tendon of back wall of thorax, initial encounter; X58.XXXA Exposure to other specified factors, initial encounter; E78.5 Hyperlipidemia, unspecified; J45.909 Unspecified asthma, uncomplicated; I89.0 Lymphedema, not elsewhere classified; K58.9 Irritable bowel syndrome, unspecified; Z88.5 Allergy status to narcotic agent; Z88.6 Allergy status to analgesic agent; Z88.8 Allergy status to other drugs, medicaments and biological substances; Z91.041 Radiographic dye allergy status; Z91.018 Allergy to other foods; Z79.52 Long term (current) use of systemic steroids; Z79.899 Other long term (current) drug therapy; Z79.01 Long term (current) use of anticoagulants; Y92.9 Unspecified place or not applicable; Y93.9 Activity, unspecified; Y99.9 Unspecified external cause status

== ENCOUNTER 2025-05-02 09:19 | Outpatient (CLI) | payer BC ==
[~2025-05-02] VITALS: Ht 190.5 cm; Wt 138.6 kg
[~2025-05-02 09:19] MED LIST changes: +MEDR4PAK PO; +METH-1165 PO; +TRAM50TA2 PO
[2025-05-02 09:25] VITALS: BP 147/72; O2SAT 97
[2025-05-02] MEDS ORDERED: NS (Normal Saline) 0.9% 1,000 ML IV SCH (09:30)
[2025-05-02] MEDS: dexameTHASONE 20 MG IV PRIOR TO INFUSION IV ONE (09:35)
[2025-05-02] MEDS: ACETAMINOPHEN 650MG PO PRIOR TO INFUSION PO ONE (09:35)
[2025-05-02] MEDS: NS IV ONE (10:33)
[2025-05-02] MEDS: INFLIXIMAB BIOSIMILAR IV ONE (10:33)
[2025-05-02 13:08] VITALS: BP 114/78; O2SAT 99
== END 2025-05-02 13:10 | disposition home or self-care (01) ==
LOC: M INFU 09:19
PROVIDERS: ATTEND Internal Medicine Gastroenterology
DX: K50.90 Crohn's disease, unspecified, without complications (principal); Z88.5 Allergy status to narcotic agent; Z88.6 Allergy status to analgesic agent; Z88.8 Allergy status to other drugs, medicaments and biological substances; Z91.041 Radiographic dye allergy status; Z91.018 Allergy to other foods
CPT/HCPCS: 96375; 96413; 96415; J1100; Q5103